=== PATIENT | male | born 1965 | race Caucasian/White ===

== ENCOUNTER 2017-11-04 10:17 | Inpatient (IN) | payer BC, SELFPAY ==
[2017-11-04] VITALS (17 sets, daily range): BP systolic 149–194; BP diastolic 100–137; PULSE 75–101; RESP 16–18; TEMP 36.3–36.8; O2SAT 89–98
--- NOTE | 2017-11-04 11:10 | DI.CT_ITS ---
SYMPTOMS/DIAGNOSIS: UPPER ABDOMINAL PAIN, H/O PANCREATITIS, ? ACUTE PROCESS CT SCAN OF THE ABDOMEN AND PELVIS: CT scan of the abdomen and pelvis was performed following the uneventful administration of intravenous contrast material. There is soft tissue seen in the retroareolar region, suggesting gynecomastia. The lung bases are clear. There is diffuse attenuation of the liver consistent with hepatic steatosis. No discrete hepatic mass is seen. The gallbladder is negative by CT criteria. There is no biliary ductal dilatation. The pancreas is enlarged. There is extensive peripancreatic infiltration noted. The findings are suggestive of acute pancreatitis. There is a 3.6 x 2.3 cm fluid collection adjacent to the tail of the pancreas, suggesting a pseudocyst. The portal, superior mesenteric and splenic veins are patent, as are the branches of the celiac axis. Mild wall thickening is seen in the adjacent stomach and duodenum, likely reflecting a secondary gastritis and duodenitis. The spleen is normal in size. Note is made of an accessory spleen. The adrenal glands are unremarkable. The kidneys show normal and symmetric enhancement. No evidence of a solid renal mass or obstruction. The urinary bladder is intact. The reproductive organs are unremarkable. Apart from the findings mentioned above, the bowel is unremarkable. The abdominal aorta is of normal caliber with mild atherosclerosis. No significant abdominal or pelvic adenopathy or pneumoperitoneum is seen. There is a trace amount of free fluid in the pelvis. Degenerative changes are seen in the spine. IMPRESSION: 1. Findings consistent with acute pancreatitis. A 3.6 cm fluid collection adjacent to the tail of the pancreas suggesting a pseudocyst. 2. Hepatic steatosis. 3. Concentric thickening of the wall of the distal esophagus. This may represent an inflammatory infectious esophagitis. Esophageal injury cannot be excluded. Followup as clinically appropriate. Barium swallow or EGD may be considered. 4. Bowel wall thickening seen in the stomach and duodenum adjacent to the acute findings of the pancreas. These likely reflect secondary gastritis and duodenitis. 5. Trace amount of free fluid in the pelvis. The findings were discussed with Dr. Rubio of the Emergency Department on the date of the examination.
--- NOTE | 2017-11-04 11:33 | W.ED.GENAD ---
Discharge Plan Discharge Details Chief Complaint: Abd Prob Clinical Impression: Acute pancreatitis Reason For Visit: ACUTE PANCREATITIS Admit Date/Time: 11/04/17 14:52 Admit Provider: Adia Rubio Attending Provider: Lewis Jean-Baptiste Primary Care Provider: Stephanie Romero ED Provider: Adia Rubio Disposition Patient Disposition: [facility] INPATIENT Condition: Stable Discharge Data Discharge Date/Time-TO BE ENTERED AT DEPARTURE: 11/04/17 16:50 Medical Decision Making MDM Narrative Medical decision making narrative: 51-year-old male with a history of pancreatitis, diabetes, hypertension, hyperlipidemia and alcohol use who presents for crampy upper abdominal pain and vomiting since 230 this morning. States feels consistent with his previous episodes of pancreatitis. Admits to heavy alcohol use 3 days. Patient appears uncomfortable and diaphoretic. Heart rate 75. BP 149/103. Temperature 98.1. Oxygen saturation 98% on room air. Prior to my evaluation, labs, IV, CT abdomen ordered to expedite process. After my evaluation, will add a dose of morphine, Zofran, and IV fluids. We will also add troponin and EKG. 1310 --long delay in lab results due to lipemic blood. Lipase 9266. Creatinine and GFR within normal limits. Will give another bolus IV fluids and sent to CT. troponin negative and no acute findings on EKG. EKG rate 75, sinus, no acute ST elevation or depression. 1345 --discussed with radiology - CT resulted and notes acute pancreatitis as well as a 3.6 cm pseudocyst at tail of pancreas. Also noted fatty liver and thickening distal wall of esophagus. No stones and normal biliary duct. Patient admits to pain relief after second dose of morphine but pain is returning. Pt appears nontoxic and more comfortable. Dose of Dilaudid and Reglan ordered. Will call hospitalist for admission. 1440 -- D/w hospitalist - accepts pt for admission. HPI - General Adult General Date/Time Provider Initiated Documentation: 11/04/17 11:05. Limitations to Documentation: no limitations. Information obtained by: patient. HPI Narrative: Patient is a 51-year-old male with a history of pancreatitis, diabetes, hypertension, hyperlipidemia and alcohol use who presents for crampy upper abdominal pain since 230 this morning. States he has vomited multiple times which have mainly been bile. Patient states pain is 10/10 but denies any radiation. States his symptoms appear consistent with previous episodes of pancreatitis. Patient states he last drank alcohol 3 days ago and states I had more than I should have . States he had 3-4 alcoholic drinks. He denies any tobacco or drug use. Denies known fever but has felt cold and clammy. Last bowel movement was watery and brown this morning but denies any bleeding. He has not taken any medication for pain. Related Data Home Medications Medication Instructions Recorded Confirmed albuterol sulfate [Ventolin HFA] 2 puff INHALATION QID PRN #3 puff 07/01/12 11/04/17 multivitamin [Multi-Vitamin Daily] 1 ea PO 10/29/16 Allergies Allergy/AdvReac Type Severity Reaction Status Date / Time morphine AdvReac Intermediate Narcotic Unverified 07/02/17 08:53 induced constipation General Stated Complaint: Abd Prob DELMY: 3 Review of Systems Constitutional Reports chills, Denies fever(s) and Reports poor appetite Eyes Patient Denies diplopia and Denies loss of vision ENT Denies sore throat and Denies throat swelling Cardiovascular Denies chest pain and Denies dyspnea Respiratory Denies dyspnea Gastrointestinal Reports abdominal pain, Reports diarrhea and Reports vomiting Genitourinary Denies hematuria, Denies difficulty urinating and Denies dysuria Musculoskeletal Denies back pain Neurologic Denies loss of vision Allergic/Immunologic Denies throat swelling PFSH Family History Grandfather Myocardial infarction Mother No problems noted. Father No problems noted. Grandfather Personal history of malignant neoplasm Grandmother No problems noted. Grandmother No problems noted. 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 [employer] Smoking/Tobacco Use Status: Never alcohol intake: current alcohol intake frequency: a few times a week Surgical History Arthroplasty of knee (~05/2004) Exam Const General: cooperative and in distress moderate Nutritional Appearance: obese Orientation: alert and awake [facility] Head: normal to inspection Ears: hearing grossly normal bilaterally General nose exam: external nose normal Mouth: moist mucous membranes Eyes General: appearance normal, both eyes and all related structures Pupils: PERRL EOM: EOM intact bilaterally Neck Neck: normal visual inspection Chest Chest: normal inspection of the chest Resp Effort & Inspection: normal respiratory effort, no respiratory distress and no use of accessory muscles Auscultation: clear to auscultation bilaterally Cardio Rate: regular rate Rhythm: regular rhythm GI Inspection: normal to inspection Palpation: soft and tender in the epigastrum, in the LLQ and in the RLQ Male General Exam: Yes normal external exam Skin General skin exam: no rashes or lesions noted Neuro General: alert and awake Cognition: normal cognition Speech: speech normal Motor: muscle tone normal throughout Sensory Exam: no sensory deficits noted Extrem General: normal to inspection, full ROM and no edema Psych Appearance: grossly normal Mental Status: mental status grossly normal Speech and Movement: speech and movement normal Affect: normal affect Course Vital Signs Temperature 98.1 F 11/04/17 10:23 Pulse 75 11/04/17 10:23 Respiratory Rate 16 11/04/17 10:23 Blood Pressure 149/103 H 11/04/17 10:23 Pulse Oximetry 98 11/04/17 10:23 Temperature 98.1 F 11/04/17 10:23 Pulse 75 11/04/17 10:23 Respiratory Rate 16 11/04/17 10:23 Blood Pressure 149/103 H 11/04/17 10:23 Pulse Oximetry 98 11/04/17 10:23
[2017-11-04] MEDS: MORPHine 10 MG/ML VIAL 4 MG IVP ×2 (11:39→12:06)
[2017-11-04] MEDS: Normal Saline 1,000 ML 1000 ML IV ×2 (11:39→13:51)
[2017-11-04 11:40] LABS: Abs Immature Grans 0.02 k/cumm (0.0-0.09); Absolute Basophil Count 0.01 k/cumm (0.0-0.2); Absolute Eosinophil Count 0.01 k/cumm (0.0-0.7); Absolute Lymphocyte Count 1.33 k/cumm (1.2-3.4); Absolute Monocyte Count 0.56 k/cumm (0.11-0.7); Absolute Neutrophil Count 7.47 k/cumm (1.2-6.7); Basophils % 0.1; Eosinophils % 0.1; HCT 47.8 % (40.0-50.0); HGB 16.3 g/dL (13.5-17.5); Immature Grans % 0.2; Lymphocytes % 14.1; Mean Corp. HGB Concentration 34.1 g/dL (32.0-36.0); Mean Corpuscular Hemoglobin 33.3 pg (27.0-33.0); Mean Corpuscular Volume 97.8 fL (80-95); Neutrophils % 79.5; Platelet Count 184 x1000/uL (130-400); RBC 4.89 m/cumm (4.50-6.00); RBC Distribution Width 13.2 % (11.8-14.1)
--- NOTE | 2017-11-04 11:41 | ED.GENADUL_ITS ---
Discharge Plan Discharge Details Chief Complaint: Abd Prob Clinical Impression: Acute pancreatitis Reason For Visit: ACUTE PANCREATITIS Admit Date/Time: 11/04/17 14:52 Admit Provider: Adia Rubio Attending Provider: Lewis Jean-Baptiste Primary Care Provider: Stephanie Romero ED Provider: Adia Rubio Disposition Patient Disposition: [facility] INPATIENT Condition: Stable Discharge Data Discharge Date/Time-TO BE ENTERED AT DEPARTURE: 11/04/17 16:50 Medical Decision Making MDM Narrative Medical decision making narrative: 51-year-old male with a history of pancreatitis, diabetes, hypertension, hyperlipidemia and alcohol use who presents for crampy upper abdominal pain and vomiting since 230 this morning. States feels consistent with his previous episodes of pancreatitis. Admits to heavy alcohol use 3 days. Patient appears uncomfortable and diaphoretic. Heart rate 75. BP 149/103. Temperature 98.1. Oxygen saturation 98% on room air. Prior to my evaluation, labs, IV, CT abdomen ordered to expedite process. After my evaluation, will add a dose of morphine, Zofran, and IV fluids. We will also add troponin and EKG. 1310 --long delay in lab results due to lipemic blood. Lipase 9266. Creatinine and GFR within normal limits. Will give another bolus IV fluids and sent to CT. troponin negative and no acute findings on EKG. EKG rate 75, sinus, no acute ST elevation or depression. 1345 --discussed with radiology - CT resulted and notes acute pancreatitis as well as a 3.6 cm pseudocyst at tail of pancreas. Also noted fatty liver and thickening distal wall of esophagus. No stones and normal biliary duct. Patient admits to pain relief after second dose of morphine but pain is returning. Pt appears nontoxic and more comfortable. Dose of Dilaudid and Reglan ordered. Will call hospitalist for admission. 1440 -- D/w hospitalist - accepts pt for admission. HPI - General Adult General Date/Time Provider Initiated Documentation: 11/04/17 11:05 . Limitations to Documentation: no limitations . Information obtained by: patient . HPI Narrative: Patient is a 51-year-old male with a history of pancreatitis, diabetes, hypertension, hyperlipidemia and alcohol use who presents for crampy upper abdominal pain since 230 this morning. States he has vomited multiple times which have mainly been bile. Patient states pain is 10/10 but denies any radiation. States his symptoms appear consistent with previous episodes of pancreatitis. Patient states he last drank alcohol 3 days ago and states I had more than I should have . States he had 3-4 alcoholic drinks. He denies any tobacco or drug use. Denies known fever but has felt cold and clammy. Last bowel movement was watery and brown this morning but denies any bleeding. He has not taken any medication for pain. Related Data Home Medications Medication Instructions Recorded Confirmed albuterol sulfate [Ventolin HFA] 2 puff INHALATION QID PRN #3 puff 07/01/1207/17 multivitamin [Multi-Vitamin Daily] 1 ea PO 10/29/16 Allergies Allergy/AdvReac Type Severity Reaction Status Date / Time morphine AdvReac Intermediate Narcotic Unverified 07/02/17 08:53 induced constipation General Stated Complaint: Abd Prob DELMY: 3 Review of Systems Constitutional Reports chills, Denies fever(s) and Reports poor appetite Eyes Patient Denies diplopia and Denies loss of vision ENT Denies sore throat and Denies throat swelling Cardiovascular Denies chest pain and Denies dyspnea Respiratory Denies dyspnea Gastrointestinal Reports abdominal pain, Reports diarrhea and Reports vomiting Genitourinary Denies hematuria, Denies difficulty urinating and Denies dysuria Musculoskeletal Denies back pain Neurologic Denies loss of vision Allergic/Immunologic Denies throat swelling PFSH Family History Grandfather Myocardial infarction Mother No problems noted. Father No problems noted. Grandfather Personal history of malignant neoplasm Grandmother No problems noted. Grandmother No problems noted. 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 Use Status: Never alcohol intake: current alcohol intake frequency: a few times a week Surgical History Arthroplasty of knee (~05/2004) Exam Const General: cooperative and in distress moderate Nutritional Appearance: obese Orientation: alert and awake [facility] Head: normal to inspection Ears: hearing grossly normal bilaterally General nose exam: external nose normal Mouth: moist mucous membranes Eyes General: appearance normal, both eyes and all related structures Pupils: PERRL EOM: EOM intact bilaterally Neck Neck: normal visual inspection Chest Chest: normal inspection of the chest Resp Effort & Inspection: normal respiratory effort, no respiratory distress and no use of accessory muscles Auscultation: clear to auscultation bilaterally Cardio Rate: regular rate Rhythm: regular rhythm GI Inspection: normal to inspection Palpation: soft and tender in the epigastrum, in the LLQ and in the RLQ Male General Exam: Yes normal external exam Skin General skin exam: no rashes or lesions noted Neuro General: alert and awake Cognition: normal cognition Speech: speech normal Motor: muscle tone normal throughout Sensory Exam: no sensory deficits noted Extrem General: normal to inspection, full ROM and no edema Psych Appearance: grossly normal Mental Status: mental status grossly normal Speech and Movement: speech and movement normal Affect: normal affect Course Vital Signs Temperature 98.1 F 11/04/17 10:23 Pulse 75 11/04/17 10:23 Respiratory Rate 16 11/04/17 10:23 Blood Pressure 149/103 H 11/04/17 10:23 Pulse Oximetry 98 11/04/17 10:23 Temperature 98.1 F 11/04/17 10:23 Pulse 75 11/04/17 10:23 Respiratory Rate 16 11/04/17 10:23 Blood Pressure 149/103 H 11/04/17 10:23 Pulse Oximetry 98 11/04/17 10:23
[2017-11-04] MEDS: Ondansetron 4 MG/2 ML VIAL IVP ×3 (11:42→20:35)
[2017-11-04 11:59] LABS: ALT 59 U/L (12-78); AST 61 U/L (15-37); Albumin 3.7 g/dL (3.4-5.0); Alkaline Phosphatase 65 U/L (46-116); Anion Gap 9.3 mmol/L (3-11); BUN 11 mg/dL (7-18); Bilirubin, Total 1.1 mg/dL (0.2-1.0); CO2 25.7 mmol/L (21.0-32.0); CREATININE 0.98 mg/dL (0.70-1.30); Calcium 9.7 mg/dL (8.5-10.1); Chloride 95 mmol/L (98-107); Glucose 240 mg/dL (70-100); Potassium 3.7 mmol/L (3.5-5.1); Sodium 130 mmol/L (136-145); Total Protein 7.6 g/dL (6.4-8.2)
[2017-11-04 12:22] LABS: Magnesium 1.1 mg/dL (1.8-2.4)
[2017-11-04 12:28] LABS: Troponin I < 0.02 ng/mL (0.00-0.06)
[2017-11-04 12:59] LABS: Lipase 9266 U/L (73-393)
[2017-11-04 13:11] LABS: Bilirubin Small (Negative); Blood Negative (Negative); Clarity Clear; Glucose 500 mg/dL (Negative); Ketones 80 mg/dL (Negative); Leukocyte Esterase Negative (Negative); Nitrite Negative (Negative); Specific Gravity >= 1.030 (1.005-1.025); Urobilinogen 0.2 EU/dL (Up TO 0.2); pH 5.5 (5-8)
[2017-11-04 13:24] LABS: Epithelial Cells Few HPF (Negative); Other Cells Negative (Negative); RBC Negative (0-2); WBC Negative HPF (0-5)
[2017-11-04 13:25] LABS: Bacteria Few HPF (Negative); C & S Indicated? No; Casts Negative LPF (Negative); Crystals Negative HPF (Negative); Mucus Heavy (Negative)
[2017-11-04] MEDS: HYDROmorphone 2 MG/ML VIAL 1 MG IVP ×4 (13:49→22:28)
[2017-11-04] MEDS: Metoclopramide 10 MG/2 ML VIAL IVP (13:50)
[2017-11-04] MEDS: Omnipaque 350 MG/ML 100 ML BTL IJ (14:23)
[2017-11-04] MEDS: FAMOTIDINE 20 MG/50 ML BAG 100 MG IVPB (16:46)
--- NOTE | 2017-11-04 17:34 | HPE_ITS ---
Date of service: 11/04/17 Time of Service: 17:33 Assessment and Plan (1) Acute pancreatitis: Current visit: Yes Status: Acute Lipase elevated at [address] findings suggestive of pancreatitis. Plan to give IV fluid hydration, maintain NPO status, analgesics and antiemetics. Repeat Lipase in the morning. Lipid panel in the am. (2) Diabetes mellitus: Current visit: Yes Status: Chronic Hold metformin while inpatient. Monitor fingersticks q6h while NPO, provide sliding scale coverage q6h. (3) Alcohol intake above recommended sensible limits: Current visit: No Status: Chronic Reportedly decreased alcohol intake significantly. Plan to monitor for signs of withdrawal on the CIWA protocol. Encourage abstinence from alcohol. (4) History of tobacco use: Current visit: Yes Status: Chronic He uses chewing tobacco. He declines a nicotine patch at this time. Provide nicotine replacement as needed. (5) Hypertension: Current visit: No Status: Chronic Blood pressure elevated in the setting of pain. Maintain pain control and continue to monitor blood pressures. History of Present Illness Chief Complaint: abdominal pain Narrative: Mr. Guillermo is a 51 year old male with a history of alcohol abuse and pancreatitis as well as diabetes, hypertension and hyperlipidemia. He reports having increased stress in his life recently. He drank alcohol 3 days ago, probably more than I should have. He has been trying to cut back on his alcohol intake. He began feeling fatigued and ill yesterday. He has been unable to tolerate PO intake, he has not had anything to eat or drink since yesterday morning. He began experiencing severe diffuse abdominal pain early this morning. He became nauseated and presented to the ED. Work up in the ED included labs which revealed an elevated lipase of 9266. He was also noted to have mild hyponatremia with a sodium of 130, his magnesium was low at 1.1, he had no leukocytosis. He had an abdominal CT which revealed Findings consistent with acute pancreatitis. A 3.6 cm fluid collection adjacent to the tail of the pancreas suggesting a pseudocyst, Hepatic steatosis , concentric thickening of the wall of the distal esophagus, bowel wall thickening seen in the stomach and duodenum adjacent to the acute findings of the pancreas, trace amount of free fluid in the pelvis. He is admitted to the Med/Surg floor for further evaluation and treatment for acute pancreatits. PAST MEDICAL HISTORY: Pancreatitis, last hosptialized here in 2016. Gout Anxiety DM HTN Hyperlipidemia PAST SURGICAL HISTORY: Knee replacement Review of Systems Constitutional Reports chills, Reports excessive sweating, Reports fatigue and Denies fever(s) Cardiovascular Denies chest pain, Reports diaphoresis, Denies edema, Denies palpitations and Denies dyspnea Respiratory Denies cough, Denies dyspnea and Denies wheezing Gastrointestinal Reports abdominal pain (diffuse), Reports bloating, Reports cramping and Reports nausea (poor appetite) Genitourinary Denies dysuria Endocrine Reports excessive sweating, Reports fatigue and Denies palpitations Allergic/Immunologic Denies wheezing PFSH Family History Grandfather Myocardial infarction Mother No problems noted. Father No problems noted. Grandfather Personal history of malignant neoplasm Grandmother No problems noted. Grandmother No problems noted. Medical History Pancreatic pseudocyst (Acute) Acute pancreatitis (Acute 12/19/13) Diabetes mellitus (Chronic) History of tobacco use (Chronic) Social History lives independently: Yes current occupational status: employed current occupation: [employer] for [employer] Smoking/Tobacco Use Status: Never alcohol intake: current alcohol intake frequency: a few times a week Surgical History Arthroplasty of knee (~05/2004) Meds Home Medications Medication Instructions Recorded Confirmed Type albuterol sulfate [Ventolin HFA] 2 puff INHALATION QID PRN #3 puff 07/01/1207/17 History multivitamin [Multi-Vitamin Daily] 1 ea PO 10/29/16 History allopurinol 300 mg tablet 300 mg PO DAILY 11/06/17 11/06/17 History buspirone 15 mg tablet 15 mg PO TID PRN 11/06/17 11/06/17 History clonidine HCl 0.2 mg tablet 0.2 mg PO BID 11/06/17 11/06/17 History glipizide ER 10 mg tablet, 10 mg PO DAILY 11/06/17 11/06/17 History extended release 24 hr metformin 1,000 mg tablet 1,000 mg PO BID 11/06/17 11/06/17 History tadalafil 5 mg tablet 5 mg PO ONCE PRN 11/06/17 11/06/17 History Allergies Allergy/AdvReac Type Severity Reaction Status Date / Time morphine AdvReac Intermediate Narcotic Unverified 07/02/17 08:53 induced constipation Exam Const General: cooperative, in distress (Flushed, appears uncomfortable.) and diaphoretic HENMT Head: normocephalic and atraumatic Neck Neck: supple Resp Effort & Inspection: normal respiratory effort (Respirations even and unlabored. ) Auscultation: clear to auscultation bilaterally Cardio Rate: regular rate Heart Sounds: S1 normal, S2 normal and no murmurs GI Inspection: distended (large round abdomen.) Palpation: tender (significant tenderness on very light palpation diffusely across abdomen.) Auscultation: hypoactive bowel sounds Results Labs : 11/06/17 06:10 11/06/17 06:10 Abnormal lab results 11/04/17 11/04/17 11/04/17 Range/Units 10:40 10:40 10:40 MCV 97.8 H (80-95) fL MCH 33.3 H (27.0-33.0) pg Absolute Neutrophils 7.47 H (1.2-6.7) k/cumm Sodium 130 L (136-145) mmol/L Chloride 95 L (98-107) mmol/L Glucose 240 H (70-100) mg/dL Magnesium 1.1 L (1.8-2.4) mg/dL Total Bilirubin 1.1 H (0.2-1.0) mg/dL AST 61 H (15-37) U/L Lipase 9266 H (73-393) U/L Ur Specific [place] (1.005-1.025) Urine Protein (Negative) mg/dL Urine Bilirubin (Negative) Urine Glucose (Negative) mg/dL 11/04/17 Range/Units 13:01 MCV (80-95) fL MCH (27.0-33.0) pg Absolute Neutrophils (1.2-6.7) k/cumm Sodium (136-145) mmol/L Chloride (98-107) mmol/L Glucose (70-100) mg/dL Magnesium (1.8-2.4) mg/dL Total Bilirubin (0.2-1.0) mg/dL AST (15-37) U/L Lipase (73-393) U/L Ur Specific [place] >= 1.030 H (1.005-1.025) Urine Protein 100 H (Negative) mg/dL Urine Bilirubin Small H (Negative) Urine Glucose 500 H (Negative) mg/dL Diabetes panel 11/04/17 Range/Units 10:40 Sodium 130 L (136-145) mmol/L Potassium 3.7 (3.5-5.1) mmol/L Chloride 95 L (98-107) mmol/L Carbon Dioxide 25.7 (21.0-32.0) mmol/L BUN 11 (7-18) mg/dL Creatinine 0.98 (0.70-1.30) mg/dL Glucose 240 H (70-100) mg/dL Calcium 9.7 (8.5-10.1) mg/dL AST 61 H (15-37) U/L ALT 59 (12-78) U/L Alkaline Phosphatase 65 (46-116) U/L Total Protein 7.6 (6.4-8.2) g/dL Albumin 3.7 (3.4-5.0) g/dL Calcium panel 11/04/17 Range/Units 10:40 Calcium 9.7 (8.5-10.1) mg/dL Albumin 3.7 (3.4-5.0) g/dL Pituitary panel 11/04/17 Range/Units 10:40 Sodium 130 L (136-145) mmol/L Potassium 3.7 (3.5-5.1) mmol/L Chloride 95 L (98-107) mmol/L Carbon Dioxide 25.7 (21.0-32.0) mmol/L BUN 11 (7-18) mg/dL Creatinine 0.98 (0.70-1.30) mg/dL Glucose 240 H (70-100) mg/dL Calcium 9.7 (8.5-10.1) mg/dL Adrenal panel 11/04/17 Range/Units 10:40 Sodium 130 L (136-145) mmol/L Potassium 3.7 (3.5-5.1) mmol/L Chloride 95 L (98-107) mmol/L Carbon Dioxide 25.7 (21.0-32.0) mmol/L BUN 11 (7-18) mg/dL Creatinine 0.98 (0.70-1.30) mg/dL Glucose 240 H (70-100) mg/dL Calcium 9.7 (8.5-10.1) mg/dL Total Bilirubin 1.1 H (0.2-1.0) mg/dL AST 61 H (15-37) U/L ALT 59 (12-78) U/L Alkaline Phosphatase 65 (46-116) U/L Total Protein 7.6 (6.4-8.2) g/dL Albumin 3.7 (3.4-5.0) g/dL Laboratory Tests 11/04/17 11/04/17 11/04/17 10:40 10:40 10:40 WBC 9.40 RBC 4.89 Hgb 16.3 Hct 47.8 MCV 97.8 H MCH 33.3 H MCHC 34.1 RDW 13.2 Plt Count 184 MPV 10.0 Immature Gran % 0.2 Neutrophils % 79.5 Lymphocytes % 14.1 Monocytes % 6.0 Eosinophils % 0.1 Basophils % 0.1 Absolute Neutrophils 7.47 H Absolute Lymphocytes 1.33 Absolute Monocytes 0.56 Absolute Eosinophils 0.01 Absolute Basophils 0.01 Sodium 130 L Potassium 3.7 Chloride 95 L Carbon Dioxide 25.7 Anion Gap 9.3 BUN 11 Creatinine 0.98 Estimated GFR/1.73 m2 >= 60.00 Glucose 240 H Calcium 9.7 Magnesium 1.1 L Total Bilirubin 1.1 H AST 61 H ALT 59 Alkaline Phosphatase 65 Troponin I < 0.02 Total Protein 7.6 Albumin 3.7 Lipase 9266 H Urine Color Urine Clarity Urine pH Ur Specific [place] Urine Protein Urine Ketones Urine Blood Urine Nitrite Urine Bilirubin Urine Urobilinogen Ur Leukocyte Esterase Urine RBC Urine WBC Ur Epithelial Cells Urine Crystals Urine Bacteria Urine Casts Urine Mucus Urine Other Ur Culture Indicated? Urine Glucose 11/04/17 13:01 WBC RBC Hgb Hct MCV MCH MCHC RDW Plt Count MPV Immature Gran % Neutrophils % Lymphocytes % Monocytes % Eosinophils % Basophils % Absolute Neutrophils Absolute Lymphocytes Absolute Monocytes Absolute Eosinophils Absolute Basophils Sodium Potassium Chloride Carbon Dioxide Anion Gap BUN Creatinine Estimated GFR/1.73 m2 Glucose Calcium Magnesium Total Bilirubin AST ALT Alkaline Phosphatase Troponin I Total Protein Albumin Lipase Urine Color Dania Urine Clarity Clear Urine pH 5.5 Ur Specific [place] >= 1.030 H Urine Protein 100 H Urine Ketones 80 Urine Blood Negative Urine Nitrite Negative Urine Bilirubin Small H Urine Urobilinogen 0.2 Ur Leukocyte Esterase Negative Urine RBC Negative Urine WBC Negative Ur Epithelial Cells Few Urine Crystals Negative Urine Bacteria Few Urine Casts Negative Urine Mucus Heavy Urine Other Negative Ur Culture Indicated? No Urine Glucose 500 H
--- NOTE | 2017-11-04 17:38 | NUR.NOTE ---
Nursing Note:Pt arrived to rm [id number] via stretcher from ER with RN Vidal. BP high and battery charger conveyor line notified. Patient made comfortable in the bed.
[2017-11-04] MEDS: Enoxaparin 40 MG/0.4 ML SYR SC (18:41)
[2017-11-04] MEDS: Normal Saline Flush 10 ML SYR IVP ×3 (18:42→23:05)
[2017-11-04] MEDS: Normal Saline 1,000 ML 150 ML IV (18:42)
[2017-11-04] MEDS: MAGNESIUM SULFATE 4 GM/100 ML BAG IVPB (18:43)
[2017-11-04] MEDS: Insulin Aspart 300 UNITS/3 ML PEN SC (18:56)
[2017-11-04] MEDS: Metoprolol 5 MG/5 ML VIAL IVP ×2 (19:38→23:01)
[2017-11-04] MEDS: LORazepam 1 MG TAB PO/SL (20:33)
[2017-11-04] MEDS: Mylanta Suspension 30 ML CUP PO (20:44)
[2017-11-04] MEDS: Milk of Magnesia 30 ML CUP PO (20:44)
[2017-11-05] VITALS (19 sets, daily range): BP systolic 137–197; BP diastolic 91–136; PULSE 90–128; RESP 16–20; TEMP 36.6–37.7; O2SAT 93–95
[2017-11-05] MEDS: HYDROmorphone 2 MG/ML VIAL 1 MG IVP ×9 (01:10→23:52)
[2017-11-05] MEDS: Normal Saline Flush 10 ML SYR IVP ×11 (01:11→16:36)
[2017-11-05] MEDS: Ondansetron 4 MG/2 ML VIAL IVP ×3 (01:44→20:16)
[2017-11-05] MEDS: Normal Saline 1,000 ML 150 ML IV ×4 (01:45→22:59)
[2017-11-05] MEDS: Metoprolol 5 MG/5 ML VIAL IVP ×2 (03:56→08:11)
--- NOTE | 2017-11-05 05:42 | INITIAL_ITS ---
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 Dino states that he has family and friends locally whom are supportive. He is independent at baseline, drives, and manages [employer]. CURRENT FUNCTIONAL STATUS:: Currently Dino is lying in bed when this advertising copywriter visits. He is receptive to discussion. During visit Dino became nauseous and LAUREN Zhao, was notified. ADVANCE DIRECTIVES:: None on file Has patient been provided with information about the portal?: Yes Did the patient sign up for the portal?: No CODE STATUS:: Full Code INSURANCE COVERAGE / FINANCIAL ISSUES:: BCBS CURRENT HOME/COMMUNITY SERVICES/EQUIPMENT:: Currently Dino has no services or medical equipment in the community. PRIMARY CARE PHYSICIAN:: Dr. Romero POTENTIAL DISCHARGE NEEDS:: F/U appointment with PCP PATIENT/FAMILY EDUCATION NEEDS:: Review DC instructions, any limitations, and ongoing DC planning discussion. ANTICIPATED BARRIERS TO DISCHARGE:: None identified at this time. TRANSPORTATION:: Via private vehicle PLAN:: Dino will return home with no anticipated services. He will F/U with PCP and plan of care as prescribed. Dino will transport home via private vehicle. Readmission - Within the Past 30 Days Yes or No: N
[2017-11-05] MEDS: Insulin Aspart 300 UNITS/3 ML PEN SC ×4 (06:40→23:53)
[2017-11-05] MEDS: Mylanta Suspension 30 ML CUP PO (07:15)
[2017-11-05 07:16] LABS: HGB 16.9 g/dL (13.5-17.5); Mean Corp. HGB Concentration 33.1 g/dL (32.0-36.0); Mean Corpuscular Hemoglobin 33.3 pg (27.0-33.0); Mean Corpuscular Volume 100.6 fL (80-95); Mean Platelet Volume 10.1 fL (8.0-11.0); Platelet Count 131 x1000/uL (130-400); RBC 5.07 m/cumm (4.50-6.00); RBC Distribution Width 13.6 % (11.8-14.1); White Blood Cell Count 14.07 k/cumm (4.4-10.8)
[2017-11-05 07:38] LABS: BUN 11 mg/dL (7-18); CREATININE 1.21 mg/dL (0.70-1.30); Calcium 7.9 mg/dL (8.5-10.1); Chloride 100 mmol/L (98-107); Cholesterol 180 mg/dL (50-200); Glucose 263 mg/dL (70-100); HDL Cholesterol 58 mg/dL (40-60); LDL CHOLESTEROL 88 mg/dL (<100); Magnesium 1.7 mg/dL (1.8-2.4); Potassium 4.5 mmol/L (3.5-5.1); Sodium 133 mmol/L (136-145); Triglyceride 284 mg/dL (30-150)
[2017-11-05 08:03] LABS: Lipase 8590 U/L (73-393)
--- NOTE | 2017-11-05 09:14 | DI.US_ITS ---
SYMPTOM/DIAGNOSIS: PANCREATITIS, ? GALLSTONES ABDOMEN ULTRASOUND: Comparison is made with CT of the abdomen and pelvis dated 11/04/17. The exam is limited by the patient's body habitus and a large amount of bowel gas. The liver shows fatty infiltration. Posterior portions of the liver were not seen. The gallbladder has a normal appearance. No stones or wall thickening is identified. A small amount of fluid is seen near the gallbladder, likely secondary to the pancreatitis. No biliary dilatation is seen. Pancreas is well seen. Kidneys and spleen appear normal. The aorta and IVC were obscured by bowel gas. IMPRESSION: Limited exam due to patient body habitus. No evidence of gallstones, gallbladder wall thickening or gallbladder distension. Severe fatty infiltration of the liver.
--- NOTE | 2017-11-05 10:00 | PDOC.CMIN ---
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 Dino states that he has family and friends locally whom are supportive. He is independent at baseline, drives, and manages [employer]AD[employer]'s. CURRENT FUNCTIONAL STATUS:: Currently Dino is lying in bed when this underwriter mortgage loan visits. He is receptive to discussion. During visit Dino became nauseous and LAUREN Zhao, was notified. ADVANCE DIRECTIVES:: None on file Has patient been provided with information about the portal?: Yes Did the patient sign up for the portal?: No CODE STATUS:: Full Code INSURANCE COVERAGE / FINANCIAL ISSUES:: BCBS CURRENT HOME/COMMUNITY SERVICES/EQUIPMENT:: Currently Dino has no services or medical equipment in the community. PRIMARY CARE PHYSICIAN:: Dr. Romero POTENTIAL DISCHARGE NEEDS:: F/U appointment with PCP PATIENT/FAMILY EDUCATION NEEDS:: Review DC instructions, any limitations, and ongoing DC planning discussion. ANTICIPATED BARRIERS TO DISCHARGE:: None identified at this time. TRANSPORTATION:: Via private vehicle PLAN:: Dino will return home with no anticipated services. He will F/U with PCP and plan of care as prescribed. Dino will transport home via private vehicle. Readmission - Within the Past 30 Days Yes or No: N
[2017-11-05] MEDS: cloNIDine 0.1 MG TAB 0.2 MG PO ×2 (10:41→20:16)
[2017-11-05] MEDS: MAGNESIUM SULFATE 2 GM/50 ML BAG IVPB (10:42)
--- NOTE | 2017-11-05 11:37 | PHARADMIT ---
Addendum entered by Michael Vaca III 11/07/17 12:36: Pharmacy Note Subjective Patients pancreatitis resolving. Issue now is possible ileus,abdomn distended, no flatus Reglan 10mg IV q6hrs started to increase gut motility. CIWA-zero Objective BP- 145/84 HR-93 pain:5/10 Lipase-1000 SCr-0.87 (better) WBC-15.29 Assessment BP is under control now with yesterdays changes Plan Awaiting ileus resolution Original Note: Addendum entered by Michael Vaca III 11/06/17 16:26: Pharmacy Note Subjective Pseudo-cyst around pancrease.Pain has improved,WBC is up, Feels bloated and belchy,no flatus no BM Objective BP-164/106 HR-102 Pain:5/10 Lipase-4080 Plts-112 Na-137 K+4.7 Mag-2.2 WBC-16.97 H&H-OK Assessment Norvasc added, clonidine re-ordered for BP. Plan Continues NPO for now. ,watch for repeat abdominal CT and x-ray results Original Note: Admission Pharmacy Clinical Review ACUTE PANCREATITIS Code Status Full Code Current Weight Wgt- 131.8 kg Renally Cleared and Narrow Therapeutic Index Meds CrCl~ 84 mL/min Meds-OK QTc Value / Action Taken Program NA BP Control, Fever BP- 184/135 Tmax- 37.1c Electrolytes reviewed Na- 133 K+4.5 Mag-1.7 DVT Prophylaxis Lovenox Opiate Usage / Scheduled Bowel Regimen Ordered Yes Yes Plt/SCr for Heparin / Enoxaparin Plts-131 SCr-1.21 INR for Warfarin NA H/H stable, WBC/Bands H&H- 16.9/51.0 WBC- 14.07 Antibiotic appropriateness none Cultures and Sensitivities none Surgical ABX d/c within 24 hr NA DM control / Insulin Dosing BG- 263 Glipizode,Aspart Heart Failure (Check EF%) (SHELDON's, B-Block, Diuretics) Catapres, Lopressor IV to PO Switch No Home Meds Reviewed Yes Home Meds Not Ordered Buspar, Cialis, Metformin, M-Vits Comments Lipase-8590
--- NOTE | 2017-11-05 12:40 | PGE_ITS ---
Date of service: 11/05/17 Time of Service: 12:29 Assessment and Plan (1) Acute pancreatitis: Current visit: Yes Status: Acute Lipase continues to be elevated at 8590, improved form [address] findings suggestive of pancreatitis. He had an abdominal CT which did not reveal gallstones. This acute pancreatitis is likely related to alcohol use. He is on the CIWA protocol, his most recent score was 2. Continue IV fluid hydration, maintain NPO status, analgesics and antiemetics. Repeat Lipase in the morning. White count elevated this morning, repeat white count in the morning. (2) Diabetes mellitus: Current visit: Yes Status: Chronic Hold metformin while inpatient. Continue to monitor fingersticks q6h while NPO, provide sliding scale coverage q6h. (3) Alcohol intake above recommended sensible limits: Current visit: No Status: Chronic Reportedly decreased alcohol intake significantly. His most recent CIWA score was 2. Continue to monitor for signs of withdrawal on the CIWA protocol. Encourage abstinence from alcohol. (4) History of tobacco use: Current visit: Yes Status: Chronic He uses chewing tobacco. He declines a nicotine patch at this time. Provide nicotine replacement as needed. (5) Hypertension: Current visit: No Status: Chronic Blood pressure elevated in the setting of pain. His clonidine has been ordered. He has PRN metoprolol ordered IV. Maintain pain control and continue to monitor blood pressures. (6) Pancreatic pseudocyst: Current visit: Yes Status: Acute Noted on abdominal CT. This will need to be followed as an outpatient. His PCP could consider referral to GI for further evaluation. Subjective Interval history since last seen: Mr. Guillermo is a 51 year old male with a history of alcohol abuse and pancreatitis as well as diabetes, hypertension and hyperlipidemia. Her is currently being treated for acute pancreatitis, which appears to be alcohol related. He had an abdominal ultrasound to further assess for gallstones which was a limited exam due to patient body habitus. There was no evidence of gallstones, gallbladder wall thickening or gallbladder distension , there was note made of severe fatty infiltration of the liver. He has been monitored on the CIWA protocol, he has not qualified for medication at this point on the scale. His triglicerides are elevated at 284, total cholesterol 180. His lipase is down to 8590 from 9266 on admission. He continues to have abdominal discomfort, however, he reports improvement from admission. His pain is now lower in his abdomen. He had some acid reflux last evening, he notes improvement this morning. He did not sleep well last night. He is experiencing some lower back discomfort as well. He has not moved his bowels. He is asking for PO fluids, however he understands that we need to hold off as he is still experiencing significant abdominal and back pain. His nausea is improving. He denies any chest pain/pressure, palpitations, edema, shortness of breath, cough , wheezing. He is uncomfortable in the bed, nursing is working on getting a recliner into his room. Exam Const General: cooperative and in distress (Flushed, appears uncomfortable, in mild distress.) Nutritional Appearance: obese Orientation: alert, awake and oriented x3 HENOK Head: normocephalic and atraumatic Mouth: moist mucous membranes Neck Neck: normal visual inspection and supple Resp Effort & Inspection: normal respiratory effort (Respirations even and unlabored. ) and no respiratory distress Auscultation: clear to auscultation bilaterally Cardio Rate: regular rate Heart Sounds: S1 normal, S2 normal and no murmurs GI Palpation: soft and tender (He continues to have tenderness on palpation, however there is noted improvement from yesterday.) Auscultation: hypoactive bowel sounds Skin General skin exam: no rashes or lesions noted Neuro General: alert, awake and oriented x3 Cognition: normal cognition Speech: speech normal Motor: muscle tone normal throughout and strength 5/5 throughout Sensory Exam: no sensory deficits noted Extrem General: full ROM and no edema Psych Affect: normal affect Objective Objective Clinical Data: Abnormal lab results 11/04/17 11/04/17 11/05/17 Range/Units 10:40 13:01 06:16 WBC (4.4-10.8) k/cumm Hct (40.0-50.0) % MCV (80-95) fL MCH (27.0-33.0) pg Sodium 130 L 133 L (136-145) mmol/L Chloride 95 L (98-107) mmol/L Glucose 240 H 263 H (70-100) mg/dL Calcium 7.9 L (8.5-10.1) mg/dL Magnesium 1.7 L (1.8-2.4) mg/dL Total Bilirubin 1.1 H (0.2-1.0) mg/dL AST 61 H (15-37) U/L Triglycerides 284 H (30-150) mg/dL Lipase 9266 H 8590 H (73-393) U/L Ur Specific [place] >= 1.030 H (1.005-1.025) Urine Protein 100 H (Negative) mg/dL Urine Bilirubin Small H (Negative) Urine Glucose 500 H (Negative) mg/dL 11/05/17 Range/Units 06:16 WBC 14.07 H D (4.4-10.8) k/cumm Hct 51.0 H (40.0-50.0) % MCV 100.6 H (80-95) fL MCH 33.3 H (27.0-33.0) pg Sodium (136-145) mmol/L Chloride (98-107) mmol/L Glucose (70-100) mg/dL Calcium (8.5-10.1) mg/dL Magnesium (1.8-2.4) mg/dL Total Bilirubin (0.2-1.0) mg/dL AST (15-37) U/L Triglycerides (30-150) mg/dL Lipase (73-393) U/L Ur Specific [place] (1.005-1.025) Urine Protein (Negative) mg/dL Urine Bilirubin (Negative) Urine Glucose (Negative) mg/dL Vital Signs Temp 36.6 C 11/05/17 11:13 Pulse 101 H 11/05/17 11:13 Resp 19 11/05/17 11:13 BP 166/116 H 11/05/17 11:13 Pulse Ox 95 11/05/17 11:13 Intake & Output 11/04/17 11/05/17 11/05/17 23:59 11:59 23:59 Intake Total 1099 Output Total 50 / 50 Balance 1050 / 1050 2104 Weight 120.202 kg 131.8 kg Intake: IV 1099 Output: Urine 50 / 50 Other: Urine Color Straw Urine Appearance Clear Comment voided in toilet unmeasured Urine not seen, voiding independently in bathroom Voiding Methods Toilet Toilet Laboratory Results WBC 14.07 k/cumm (4.4-10.8) H D 11/05/17 06:16 RBC 5.07 m/cumm (4.50-6.00) 11/05/17 06:16 Hgb 16.9 g/dL (13.5-17.5) 11/05/17 06:16 Hct 51.0 % (40.0-50.0) H 11/05/17 06:16 MCV 100.6 fL (80-95) H 11/05/17 06:16 MCH 33.3 pg (27.0-33.0) H 11/05/17 06:16 MCHC 33.1 g/dL (32.0-36.0) 11/05/17 06:16 RDW 13.6 % (11.8-14.1) 11/05/17 06:16 Plt Count 131 x1000/uL (130-400) 11/05/17 06:16 MPV 10.1 fL (8.0-11.0) 11/05/17 06:16 Immature Gran % 0.2 11/04/17 10:40 Neutrophils % 79.5 11/04/17 10:40 Lymphocytes % 14.1 11/04/17 10:40 Monocytes % 6.0 11/04/17 10:40 Eosinophils % 0.1 11/04/17 10:40 Basophils % 0.1 11/04/17 10:40 Absolute Neutrophils 7.47 k/cumm (1.2-6.7) H 11/04/17 10:40 Absolute Lymphocytes 1.33 k/cumm (1.2-3.4) 11/04/17 10:40 Absolute Monocytes 0.56 k/cumm (0.11-0.7) 11/04/17 10:40 Absolute Eosinophils 0.01 k/cumm (0.0-0.7) 11/04/17 10:40 Absolute Basophils 0.01 k/cumm (0.0-0.2) 11/04/17 10:40 Sodium 133 mmol/L (136-145) L 11/05/17 06:16 Potassium 4.5 mmol/L (3.5-5.1) D 11/05/17 06:16 Chloride 100 mmol/L (98-107) 11/05/17 06:16 Carbon Dioxide 23.0 mmol/L (21.0-32.0) 11/05/17 06:16 Anion Gap 10.0 mmol/L (3-11) 11/05/17 06:16 BUN 11 mg/dL (7-18) 11/05/17 06:16 Creatinine 1.21 mg/dL (0.70-1.30) 11/05/17 06:16 Estimated GFR/1.73 m2 >= 60.00 (mL/min/1.73m2) 11/05/17 06:16 Glucose 263 mg/dL (70-100) H 11/05/17 06:16 Calcium 7.9 mg/dL (8.5-10.1) L 11/05/17 06:16 Magnesium 1.7 mg/dL (1.8-2.4) L 11/05/17 06:16 Total Bilirubin 1.1 mg/dL (0.2-1.0) H 11/04/17 10:40 AST 61 U/L (15-37) H 11/04/17 10:40 ALT 59 U/L (12-78) 11/04/17 10:40 Alkaline Phosphatase 65 U/L (46-116) 11/04/17 10:40 Troponin I < 0.02 ng/mL (0.00-0.06) 11/04/17 10:40 Total Protein 7.6 g/dL (6.4-8.2) 11/04/17 10:40 Albumin 3.7 g/dL (3.4-5.0) 11/04/17 10:40 Triglycerides 284 mg/dL (30-150) H 11/05/17 06:16 Total Cholesterol 180 mg/dL (50-200) 11/05/17 06:16 LDL Cholesterol Direct 88 mg/dL (<100) 11/05/17 06:16 HDL Cholesterol 58 mg/dL (40-60) 11/05/17 06:16 Lipase 8590 U/L (73-393) H 11/05/17 06:16 Urine Color Dania (Yellow) 11/04/17 13:01 Urine Clarity Clear 11/04/17 13:01 Urine pH 5.5 (5-8) 11/04/17 13:01 Ur Specific [place] >= 1.030 (1.005-1.025) H 11/04/17 13:01 Urine Protein 100 mg/dL (Negative) H 11/04/17 13:01 Urine Ketones 80 mg/dL (Negative) 11/04/17 13:01 Urine Blood Negative (Negative) 11/04/17 13:01 Urine Nitrite Negative (Negative) 11/04/17 13:01 Urine Bilirubin Small (Negative) H 11/04/17 13:01 Urine Urobilinogen 0.2 EU/dL (Up TO 0.2) 11/04/17 13:01 Ur Leukocyte Esterase Negative (Negative) 11/04/17 13:01 Urine RBC Negative (0-2) 11/04/17 13:01 Urine WBC Negative HPF (0-5) 11/04/17 13:01 Ur Epithelial Cells Few HPF (Negative) 11/04/17 13:01 Urine Crystals Negative HPF (Negative) 11/04/17 13:01 Urine Bacteria Few HPF (Negative) 11/04/17 13:01 Urine Casts Negative LPF (Negative) 11/04/17 13:01 Urine Mucus Heavy (Negative) 11/04/17 13:01 Urine Other Negative (Negative) 11/04/17 13:01 Ur Culture Indicated? No 11/04/17 13:01 Urine Glucose 500 mg/dL (Negative) H 11/04/17 13:01
[2017-11-05] MEDS: Pantoprazole 40 MG VIAL IVP (13:51)
[2017-11-05] MEDS: Docusate Sodium 100 MG CAP PO (14:28)
[2017-11-05] MEDS: Enoxaparin 40 MG/0.4 ML SYR SC (18:37)
[2017-11-06] VITALS (15 sets, daily range): BP systolic 140–186; BP diastolic 85–113; PULSE 97–145; RESP 18–24; TEMP 36.1–37.8; O2SAT 94–96
[2017-11-06] MEDS: Mylanta Suspension 30 ML CUP PO
[2017-11-06] MEDS: HYDROmorphone 2 MG/ML VIAL 1 MG IVP ×5 (03:14→23:39)
[2017-11-06] MEDS: Normal Saline 1,000 ML 150 ML IV ×2 (04:05→19:11)
[2017-11-06] MEDS: Insulin Aspart 300 UNITS/3 ML PEN SC ×4 (05:56→23:40)
[2017-11-06 07:24] LABS: HCT 48.1 % (40.0-50.0); HGB 15.6 g/dL (13.5-17.5); Mean Corp. HGB Concentration 32.4 g/dL (32.0-36.0); Mean Corpuscular Hemoglobin 33.8 pg (27.0-33.0); Mean Corpuscular Volume 104.1 fL (80-95); Mean Platelet Volume 11.1 fL (8.0-11.0); Platelet Count 112 x1000/uL (130-400); RBC 4.62 m/cumm (4.50-6.00); RBC Distribution Width 13.9 % (11.8-14.1); White Blood Cell Count 16.97 k/cumm (4.4-10.8)
[2017-11-06 07:38] LABS: Anion Gap 8.2 mmol/L (3-11); BUN 13 mg/dL (7-18); CO2 23.8 mmol/L (21.0-32.0); CREATININE 1.24 mg/dL (0.70-1.30); Calcium 7.4 mg/dL (8.5-10.1); Chloride 102 mmol/L (98-107); Glucose 310 mg/dL (70-100); Magnesium 2.2 mg/dL (1.8-2.4); Potassium 4.7 mmol/L (3.5-5.1); Sodium 134 mmol/L (136-145)
[2017-11-06 07:53] LABS: Lipase 4080 U/L (73-393)
[2017-11-06] MEDS: cloNIDine 0.1 MG TAB 0.2 MG PO ×2 (07:59→19:43)
[2017-11-06] MEDS: glipiZIDE C.R. 5 MG TABCR 10 MG PO (07:59)
[2017-11-06] MEDS: Normal Saline Flush 10 ML SYR IVP ×4 (08:00→18:59)
[2017-11-06] MEDS: Allopurinol 300 MG TAB PO (08:00)
[2017-11-06] MEDS: Docusate Sodium 100 MG CAP PO (08:00)
[2017-11-06] MEDS: Normal Saline 1,000 ML 200 ML IV (10:30)
[2017-11-06] MEDS: Milk of Magnesia 30 ML CUP PO (10:31)
[2017-11-06] MEDS: amLODIPine 5 MG TAB PO (10:31)
--- NOTE | 2017-11-06 11:07 | PDOC.CMPRO ---
- If Service Date Differs Date of service: 11/06/17 Time of Service: 11:07 Care Management Progress Note S/O: Pt presented at interdisciplinary rounds. Oc is resting in his recliner when CM visits this morning. He is engaged in conversation, makes good eye contact and is talkative. Oc reports that he has throbbing 6/10 pain in his abdomen and back. Nurse Karley informed. He is belching, not passing flatus, and is thirsty but remains NPO at this time. He continues to receive IV fluids at this time. He is being monitored on telemetry and is being monitored for signs of withdrawal on the CIWA protocol. His most recent CIWA score was a one. A: 51 year old male admitted with acute pancreatitis. P: Oc will be discharged home when medically ready per MD. Anticipate pt will discharge with no services and follow up with PCP. Oc will transport via private vehicle with family/friend. CM will continue to offer support to patient and care team regarding discharge planning and disposition.
--- NOTE | 2017-11-06 13:19 | PGE_ITS ---
Date of service: 11/06/17 Time of Service: 13:00 Assessment and Plan (1) Acute pancreatitis: Current visit: Yes Status: Acute Lipase improved today, it is down to 4080 from 8590 yesterday and 9266 on admission. His white blood cell count has increased today. His pain has improved. His abdomen is now distended and he is not passing flatus. Abdominal x -ray has been ordered to assess for ileus. Discussed with Radiologist, Dr. Salcido , who notes that pseudocyst has not changed since last imaged in 2016. She did not see the utility of adding an MRCP at this point. She recommends repeat abdominal CT if indicated. If abdominal x-ray is unremarkable, plan to initiate bowel regimen and possibly allow limited sips of water and ice chips. (2) Diabetes mellitus: Current visit: Yes Status: Chronic Fingersticks elevated, aspart increased to moderate sliding scale. Hold metformin while inpatient. Monitor fingersticks q6h while NPO, provide sliding scale coverage q6h. (3) Alcohol intake above recommended sensible limits: Current visit: No Status: Chronic Reportedly decreased alcohol intake significantly. Most recent CIWA score was zero. Continue to monitor for signs of withdrawal on the CIWA protocol. Encourage abstinence from alcohol. (4) History of tobacco use: Current visit: Yes Status: Chronic He uses chewing tobacco. He declines a nicotine patch at this time. Provide nicotine replacement as needed. (5) Hypertension: Current visit: No Status: Chronic Blood pressure remains elevated. His home clonidine was reordered. Amlodipine added today. Maintain pain control and continue to monitor blood pressures. Subjective Interval history since last seen: Mr. Guillermo is a 51 year old male with a history of alcohol abuse and pancreatitis as well as diabetes, hypertension and hyperlipidemia. He is currently being treated for acute pancreatitis, which appears to be alcohol related. He had an abdominal ultrasound to further assess for gallstones which was a limited exam due to patient body habitus. There was no evidence of gallstones, gallbladder wall thickening or gallbladder distension , there was note made of severe fatty infiltration of the liver. He has been monitored on the CIWA protocol, his most recent score was zero. His triglycerides are elevated at 284, total cholesterol 180. His lipase is down to 4080 from 8590 yesterday and from 9266 on admission. His abdominal pain has improved significantly from admission and is currently in his lower abdomen. He feels bloated, he is belching, he is not passing flatus, he has not had a bowel movement. He has been ambulating in the halls today. He reports that the last time he had pancreatitis, his bowels took time to return to normal function. He slept well last night. He is experiencing some bilateral lower back discomfort as well, he believes this is related to sleeping in the hospital bed. He is requesting PO fluids. His nausea is improving. He denies any chest pain/pressure, palpitations, edema, shortness of breath, cough, wheezing. Exam Const General: cooperative, no acute distress and not diaphoretic Nutritional Appearance: obese Orientation: alert, awake and oriented x3 HENMT Head: normocephalic and atraumatic Mouth: moist mucous membranes Neck Neck: supple Resp Effort & Inspection: normal respiratory effort (Respirations even and unlabored. ) Auscultation: clear to auscultation bilaterally Cardio Rate: regular rate Heart Sounds: S1 normal, S2 normal and no murmurs GI Inspection: distended (obese, more firm than yesterday.) Palpation: not soft and tender (tenderness now across lower abdomen, was previously diffuse and more severe across upper abdomen and epigastric region.) Auscultation: hypoactive bowel sounds Skin General skin exam: no rashes or lesions noted Neuro General: alert, awake and oriented x3 Speech: speech normal Motor: muscle tone normal throughout and strength 5/5 throughout Extrem General: full ROM, normal gait and no edema Psych Affect: normal affect Objective Objective Clinical Data: Abnormal lab results 11/06/17 11/06/17 Range/Units 06:10 06:10 WBC 16.97 H (4.4-10.8) k/cumm MCV 104.1 H D (80-95) fL MCH 33.8 H (27.0-33.0) pg Plt Count 112 L (130-400) x1000/uL MPV 11.1 H (8.0-11.0) fL Sodium 134 L (136-145) mmol/L Glucose 310 H (70-100) mg/dL Calcium 7.4 L (8.5-10.1) mg/dL Lipase 4080 H (73-393) U/L Vital Signs Temp 36.1 C L 11/06/17 07:26 Pulse 115 H 11/06/17 09:36 Resp 18 11/06/17 04:26 BP 140/87 11/06/17 08:30 Pulse Ox 95 11/06/17 07:26 Intake & Output 11/05/17 11/06/17 11/06/17 23:59 11:59 23:59 Intake Total 1822.5 / 1822.5 1727.5 / 1727.5 Balance 1822.5 / 1822.5 1727.5 / 1727.5 Weight 135.6 kg Intake: IV 1772.5 / 1772.5 1727.5 / 1727.5 Oral 50 / 50 Other: Comment Patient states he has been voiding independently in the toilet with no issues. Voiding Methods Toilet Laboratory Results WBC 16.97 k/cumm (4.4-10.8) H 11/06/17 06:10 RBC 4.62 m/cumm (4.50-6.00) 11/06/17 06:10 Hgb 15.6 g/dL (13.5-17.5) 11/06/17 06:10 Hct 48.1 % (40.0-50.0) 11/06/17 06:10 MCV 104.1 fL (80-95) H D 11/06/17 06:10 MCH 33.8 pg (27.0-33.0) H 11/06/17 06:10 MCHC 32.4 g/dL (32.0-36.0) 11/06/17 06:10 RDW 13.9 % (11.8-14.1) 11/06/17 06:10 Plt Count 112 x1000/uL (130-400) L 11/06/17 06:10 MPV 11.1 fL (8.0-11.0) H 11/06/17 06:10 Immature Gran % 0.2 11/04/17 10:40 Neutrophils % 79.5 11/04/17 10:40 Lymphocytes % 14.1 11/04/17 10:40 Monocytes % 6.0 11/04/17 10:40 Eosinophils % 0.1 11/04/17 10:40 Basophils % 0.1 11/04/17 10:40 Absolute Neutrophils 7.47 k/cumm (1.2-6.7) H 11/04/17 10:40 Absolute Lymphocytes 1.33 k/cumm (1.2-3.4) 11/04/17 10:40 Absolute Monocytes 0.56 k/cumm (0.11-0.7) 11/04/17 10:40 Absolute Eosinophils 0.01 k/cumm (0.0-0.7) 11/04/17 10:40 Absolute Basophils 0.01 k/cumm (0.0-0.2) 11/04/17 10:40 Sodium 134 mmol/L (136-145) L 11/06/17 06:10 Potassium 4.7 mmol/L (3.5-5.1) 11/06/17 06:10 Chloride 102 mmol/L (98-107) 11/06/17 06:10 Carbon Dioxide 23.8 mmol/L (21.0-32.0) 11/06/17 06:10 Anion Gap 8.2 mmol/L (3-11) 11/06/17 06:10 BUN 13 mg/dL (7-18) 11/06/17 06:10 Creatinine 1.24 mg/dL (0.70-1.30) 11/06/17 06:10 Estimated GFR/1.73 m2 >= 60.00 (mL/min/1.73m2) 11/06/17 06:10 Glucose 310 mg/dL (70-100) H 11/06/17 06:10 Calcium 7.4 mg/dL (8.5-10.1) L 11/06/17 06:10 Magnesium 2.2 mg/dL (1.8-2.4) 11/06/17 06:10 Total Bilirubin 1.1 mg/dL (0.2-1.0) H 11/04/17 10:40 AST 61 U/L (15-37) H 11/04/17 10:40 ALT 59 U/L (12-78) 11/04/17 10:40 Alkaline Phosphatase 65 U/L (46-116) 11/04/17 10:40 Troponin I < 0.02 ng/mL (0.00-0.06) 11/04/17 10:40 Total Protein 7.6 g/dL (6.4-8.2) 11/04/17 10:40 Albumin 3.7 g/dL (3.4-5.0) 11/04/17 10:40 Triglycerides 284 mg/dL (30-150) H 11/05/17 06:16 Total Cholesterol 180 mg/dL (50-200) 11/05/17 06:16 LDL Cholesterol Direct 88 mg/dL (<100) 11/05/17 06:16 HDL Cholesterol 58 mg/dL (40-60) 11/05/17 06:16 Lipase 4080 U/L (73-393) H 11/06/17 06:10 Urine Color Dania (Yellow) 11/04/17 13:01 Urine Clarity Clear 11/04/17 13:01 Urine pH 5.5 (5-8) 11/04/17 13:01 Ur Specific [place] >= 1.030 (1.005-1.025) H 11/04/17 13:01 Urine Protein 100 mg/dL (Negative) H 11/04/17 13:01 Urine Ketones 80 mg/dL (Negative) 11/04/17 13:01 Urine Blood Negative (Negative) 11/04/17 13:01 Urine Nitrite Negative (Negative) 11/04/17 13:01 Urine Bilirubin Small (Negative) H 11/04/17 13:01 Urine Urobilinogen 0.2 EU/dL (Up TO 0.2) 11/04/17 13:01 Ur Leukocyte Esterase Negative (Negative) 11/04/17 13:01 Urine RBC Negative (0-2) 11/04/17 13:01 Urine WBC Negative HPF (0-5) 11/04/17 13:01 Ur Epithelial Cells Few HPF (Negative) 11/04/17 13:01 Urine Crystals Negative HPF (Negative) 11/04/17 13:01 Urine Bacteria Few HPF (Negative) 11/04/17 13:01 Urine Casts Negative LPF (Negative) 11/04/17 13:01 Urine Mucus Heavy (Negative) 11/04/17 13:01 Urine Other Negative (Negative) 11/04/17 13:01 Ur Culture Indicated? No 11/04/17 13:01 Urine Glucose 500 mg/dL (Negative) H 11/04/17 13:01
[2017-11-06] MEDS: Pantoprazole 40 MG VIAL IVP (13:31)
--- NOTE | 2017-11-06 14:26 | DI.RAD_ITS ---
SYMPTOMS/DIAGNOSIS: ACUTE PANCREATITIS, ? ILEUS FLAT AND UPRIGHT VIEWS OF THE ABDOMEN: Comparison is made with a CT of the abdomen and pelvis dated October,. Air is seen mainly in the transverse colon and a few loops of small bowel. There are some air-fluid levels, which could indicate a mild ileus. IMPRESSION: Mild small bowel and colonic distention, consistent with an ileus.
[2017-11-06 16:05] LABS: Bilirubin Small (Negative); Blood Small (Negative); Clarity Clear; Glucose >=1000 mg/dL (Negative); Ketones 80 mg/dL (Negative); Leukocyte Esterase Negative (Negative); Nitrite Negative (Negative); Specific Gravity 1.025 (1.005-1.025); Urobilinogen 0.2 EU/dL (Up TO 0.2)
[2017-11-06 16:36] LABS: Bacteria Negative HPF (Negative); C & S Indicated? No; Casts Negative LPF (Negative); Crystals Few Amorphous HPF (Negative); Epithelial Cells Few HPF (Negative); Mucus Negative (Negative); RBC Negative (0-2); WBC 0-2 HPF (0-5)
[2017-11-06] MEDS: HYDROmorphone 2 MG/ML VIAL (18:58)
[2017-11-06] MEDS: Enoxaparin 40 MG/0.4 ML SYR SC (18:59)
[2017-11-06] MEDS: Polyethylene Glycol 3350 17 GM PACKET PO (23:49)
[2017-11-07] VITALS (10 sets, daily range): BP systolic 132–156; BP diastolic 76–98; PULSE 84–98; RESP 18–20; TEMP 36.1–37.3; O2SAT 93–98
[2017-11-07] MEDS: Normal Saline 1,000 ML 150 ML IV ×3 (01:32→17:40)
[2017-11-07] MEDS: HYDROmorphone 2 MG/ML VIAL 1 MG IVP (04:40)
[2017-11-07] MEDS: Insulin Aspart 300 UNITS/3 ML PEN SC ×3 (05:52→17:43)
[2017-11-07 07:13] LABS: HCT 43.4 % (40.0-50.0); HGB 13.9 g/dL (13.5-17.5); Mean Corpuscular Hemoglobin 33.1 pg (27.0-33.0); Mean Corpuscular Volume 103.3 fL (80-95); Mean Platelet Volume 10.5 fL (8.0-11.0); Platelet Count 111 x1000/uL (130-400); RBC Distribution Width 13.8 % (11.8-14.1); White Blood Cell Count 15.29 k/cumm (4.4-10.8)
[2017-11-07 07:22] LABS: Anion Gap 9.1 mmol/L (3-11); BUN 12 mg/dL (7-18); CO2 24.9 mmol/L (21.0-32.0); CREATININE 0.87 mg/dL (0.70-1.30); Calcium 7.3 mg/dL (8.5-10.1); Chloride 100 mmol/L (98-107); Glucose 243 mg/dL (70-100); Lipase 1000 U/L (73-393); Potassium 4.3 mmol/L (3.5-5.1); Sodium 134 mmol/L (136-145)
[2017-11-07] MEDS: glipiZIDE C.R. 5 MG TABCR 10 MG PO (09:18)
[2017-11-07] MEDS: cloNIDine 0.1 MG TAB 0.2 MG PO ×2 (09:18→19:49)
[2017-11-07] MEDS: Allopurinol 300 MG TAB PO (09:19)
[2017-11-07] MEDS: amLODIPine 5 MG TAB PO (09:19)
--- NOTE | 2017-11-07 09:52 | PDOC.CMPRO ---
- If Service Date Differs Date of service: 11/07/17 Time of Service: 09:52 Care Management Progress Note S/O: Pt presented at interdisciplinary rounds.He continues to ambulate his labs are improving. His IV pain medication will be stopped today and providing his bowel function improves he may discharge over the weekend. Anticipate a surgical consult per MD at rounds. A: 51 year old male admitted with acute pancreatitis. P: Oc will be discharged home when medically ready per MD. Anticipate pt will discharge with no services and follow up with PCP. Oc will transport via private vehicle with family/friend. CM will continue to offer support to patient and care team regarding discharge planning and disposition.
--- NOTE | 2017-11-07 12:15 | W.PM.PROGNOT ---
Date of service: 11/07/17 Time of Service: 12:17 Assessment and Plan (1) Acute pancreatitis: Current visit: Yes Status: Acute Continued improvement in Lipase at 1000, down from 4080 yesterday and 9266 on admission. Continue to hold PO intake due to development of ileus. Currently maintained on IVFs. His white blood cell count has increased today. His pain has improved. His abdomen is now distended and he is not passing flatus. Abdominal x-ray has been ordered to assess for ileus. Discussed with Radiologist, Dr. Salcido, who notes that pseudocyst has not changed since last imaged in 2016. She did not see the utility of adding an MRCP at this point. She recommends repeat abdominal CT if indicated. If abdominal x-ray is unremarkable, plan to initiate bowel regimen and possibly allow limited sips of water and ice chips. (2) Ileus: Current visit: Yes Status: Acute Development of likely functional ileus in setting of inflammatory changes from pancreatitis as well as opiate use for pain control. Patient remains NPO but will provide some gentle clears. Also initiated IV Reglan as per surgery recommendations. Continue to monitor symptoms - no need for NGT currently. (3) Diabetes mellitus: Current visit: Yes Status: Chronic Remains on Glipizide, with BS's mostly in the 200's despite NPO status. Continue to hold metformin while inpatient. Monitor fingersticks q6h while NPO, On sliding scale coverage q6h. (4) Alcohol intake above recommended sensible limits: Current visit: Yes Status: Chronic Reportedly decreased alcohol intake. Continue CIWA protocol. (5) History of tobacco use: Current visit: Yes Status: Chronic He uses chewing tobacco. He declines a nicotine patch at this time. (6) Hypertension: Current visit: Yes Status: Chronic Blood pressure remains elevated but improved. Clonidine was restarted yesterday, and Amlodipine added, with IV BB on prn basis. Continue to monitor. (7) DVT prophylaxis: Current visit: Yes Status: Acute SC Lovenox. Subjective Interval history since last seen: 51 year old man with a PMHx significant for alcohol abuse and pancreatitis, as well as diabetes, hypertension and hyperlipidemia, admitted from [facility] ED on 11/04/2017 with a diagnosis of Acute Pancreatitis. Mr. Guillermo He is currently being treated for acute pancreatitis which appears to be alcohol related. Abdominal ultrasound showed a fatty liver without gallstones, and while his TG were elevated they were low level. He also admitted to drinking a 12 pack of beer 2 days prior to his admission. He has been monitored on the [facility] protocol. Epigastric pain and lipase appear improved, but patient has been complaining of worsening abdominal swelling, lack of flatus, and increased belching. Subsequent x-ray showed evidence of an ileus in patient receiving opiates for pain control of pancreatitis. No other events reported. He also has a mild, continued, and unchanged leukocytosis. Remains afebrile. Exam Const General: cooperative and no acute distress Nutritional Appearance: obese Orientation: alert, awake and oriented x3 Neck Neck: supple Chest Chest: normal inspection of the chest Resp Effort & Inspection: normal respiratory effort (Respirations even and unlabored.), no respiratory distress and no use of accessory muscles Auscultation: clear to auscultation bilaterally Cardio Rate: regular rate Heart Sounds: S1 normal, S2 normal and no murmurs GI Inspection: normal to inspection and distended (obese, more firm than yesterday.) Palpation: soft and tender (tenderness now across lower abdomen, was previously diffuse and more severe across upper abdomen and epigastric region.) in the epigastrum, in the LLQ and in the RLQ Auscultation: hypoactive bowel sounds Neuro General: alert, awake and oriented x3 Extrem General: no edema Objective Objective Clinical Data: Abnormal lab results 11/06/17 11/07/17 11/07/17 Range/Units 14:50 06:50 06:50 WBC 15.29 H (4.4-10.8) k/cumm RBC 4.20 L (4.50-6.00) m/cumm MCV 103.3 H (80-95) fL MCH 33.1 H (27.0-33.0) pg Plt Count 111 L (130-400) x1000/uL Sodium 134 L (136-145) mmol/L Glucose 243 H (70-100) mg/dL Calcium 7.3 L (8.5-10.1) mg/dL Lipase 1000 H (73-393) U/L Urine Protein 100 H (Negative) mg/dL Urine Blood Small H (Negative) Urine Bilirubin Small H (Negative) Urine Glucose >=1000 H (Negative) mg/dL Vital Signs Temp 37.1 C 11/07/17 11:50 Pulse 93 H 11/07/17 11:50 Resp 20 11/07/17 11:50 BP 145/84 H 11/07/17 11:50 Pulse Ox 98 11/07/17 11:50 Intake & Output 11/06/17 11/07/17 11/07/17 23:59 11:59 23:59 Intake Total 1080.000 / 0579.917 3291.5 2051. Balance 1080.000 / 2640.138 7100.2051. Intake: IV 1080.000 / 3059.890 4175.5 1951. Oral 100 / 100 Other: Comment Patient has been OOB voiding independently with no issues - states urine is clear and yellow. Void x 1 in toilet Voiding Methods Toilet Laboratory Results WBC 15.29 k/cumm (4.4-10.8) H 11/07/17 06:50 RBC 4.20 m/cumm (4.50-6.00) L 11/07/17 06:50 Hgb 13.9 g/dL (13.5-17.5) 11/07/17 06:50 Hct 43.4 % (40.0-50.0) 11/07/17 06:50 MCV 103.3 fL (80-95) H 11/07/17 06:50 MCH 33.1 pg (27.0-33.0) H 11/07/17 06:50 MCHC 32.0 g/dL (32.0-36.0) 11/07/17 06:50 RDW 13.8 % (11.8-14.1) 11/07/17 06:50 Plt Count 111 x1000/uL (130-400) L 11/07/17 06:50 MPV 10.5 fL (8.0-11.0) 11/07/17 06:50 Immature Gran % 0.2 11/04/17 10:40 Neutrophils % 79.5 11/04/17 10:40 Lymphocytes % 14.1 11/04/17 10:40 Monocytes % 6.0 11/04/17 10:40 Eosinophils % 0.1 11/04/17 10:40 Basophils % 0.1 11/04/17 10:40 Absolute Neutrophils 7.47 k/cumm (1.2-6.7) H 11/04/17 10:40 Absolute Lymphocytes 1.33 k/cumm (1.2-3.4) 11/04/17 10:40 Absolute Monocytes 0.56 k/cumm (0.11-0.7) 11/04/17 10:40 Absolute Eosinophils 0.01 k/cumm (0.0-0.7) 11/04/17 10:40 Absolute Basophils 0.01 k/cumm (0.0-0.2) 11/04/17 10:40 Sodium 134 mmol/L (136-145) L 11/07/17 06:50 Potassium 4.3 mmol/L (3.5-5.1) 11/07/17 06:50 Chloride 100 mmol/L (98-107) 11/07/17 06:50 Carbon Dioxide 24.9 mmol/L (21.0-32.0) 11/07/17 06:50 Anion Gap 9.1 mmol/L (3-11) 11/07/17 06:50 BUN 12 mg/dL (7-18) 11/07/17 06:50 Creatinine 0.87 mg/dL (0.70-1.30) 11/07/17 06:50 Estimated GFR/1.73 m2 >= 60.00 (mL/min/1.73m2) 11/07/17 06:50 Glucose 243 mg/dL (70-100) H 11/07/17 06:50 Calcium 7.3 mg/dL (8.5-10.1) L 11/07/17 06:50 Magnesium 2.2 mg/dL (1.8-2.4) 11/06/17 06:10 Total Bilirubin 1.1 mg/dL (0.2-1.0) H 11/04/17 10:40 AST 61 U/L (15-37) H 11/04/17 10:40 ALT 59 U/L (12-78) 11/04/17 10:40 Alkaline Phosphatase 65 U/L (46-116) 11/04/17 10:40 Troponin I < 0.02 ng/mL (0.00-0.06) 11/04/17 10:40 Total Protein 7.6 g/dL (6.4-8.2) 11/04/17 10:40 Albumin 3.7 g/dL (3.4-5.0) 11/04/17 10:40 Triglycerides 284 mg/dL (30-150) H 11/05/17 06:16 Total Cholesterol 180 mg/dL (50-200) 11/05/17 06:16 LDL Cholesterol Direct 88 mg/dL (<100) 11/05/17 06:16 HDL Cholesterol 58 mg/dL (40-60) 11/05/17 06:16 Lipase 1000 U/L (73-393) H 11/07/17 06:50 Urine Color Yellow (Yellow) 11/06/17 14:50 Urine Clarity Clear 11/06/17 14:50 Urine pH 6.0 (5-8) 11/06/17 14:50 Ur Specific [place] 1.025 (1.005-1.025) 11/06/17 14:50 Urine Protein 100 mg/dL (Negative) H 11/06/17 14:50 Urine Ketones 80 mg/dL (Negative) 11/06/17 14:50 Urine Blood Small (Negative) H 11/06/17 14:50 Urine Nitrite Negative (Negative) 11/06/17 14:50 Urine Bilirubin Small (Negative) H 11/06/17 14:50 Urine Urobilinogen 0.2 EU/dL (Up TO 0.2) 11/06/17 14:50 Ur Leukocyte Esterase Negative (Negative) 11/06/17 14:50 Urine RBC Negative (0-2) 11/06/17 14:50 Urine WBC 0-2 HPF (0-5) 11/06/17 14:50 Ur Epithelial Cells Few HPF (Negative) 11/06/17 14:50 Urine Crystals Few amorphous HPF (Negative) 11/06/17 14:50 Urine Bacteria Negative HPF (Negative) 11/06/17 14:50 Urine Casts Negative LPF (Negative) 11/06/17 14:50 Urine Mucus Negative (Negative) 11/06/17 14:50 Urine Other Negative (Negative) 11/04/17 13:01 Ur Culture Indicated? No 11/06/17 14:50 Urine Glucose >=1000 mg/dL (Negative) H 11/06/17 14:50
--- NOTE | 2017-11-07 12:25 | PGE_ITS ---
Date of service: 11/07/17 Time of Service: 12:17 Assessment and Plan (1) Acute pancreatitis: Current visit: Yes Status: Acute Continued improvement in Lipase at 1000, down from 4080 yesterday and 9266 on admission. Continue to hold PO intake due to development of ileus. Currently maintained on IVFs. His white blood cell count has increased today. His pain has improved. His abdomen is now distended and he is not passing flatus. Abdominal x-ray has been ordered to assess for ileus. Discussed with Radiologist, Dr. Salcido, who notes that pseudocyst has not changed since last imaged in 2016. She did not see the utility of adding an MRCP at this point. She recommends repeat abdominal CT if indicated. If abdominal x-ray is unremarkable, plan to initiate bowel regimen and possibly allow limited sips of water and ice chips. (2) Ileus: Current visit: Yes Status: Acute Development of likely functional ileus in setting of inflammatory changes from pancreatitis as well as opiate use for pain control. Patient remains NPO but will provide some gentle clears. Also initiated IV Reglan as per surgery recommendations. Continue to monitor symptoms - no need for NGT currently. (3) Diabetes mellitus: Current visit: Yes Status: Chronic Remains on Glipizide, with BS's mostly in the 200's despite NPO status. Continue to hold metformin while inpatient. Monitor fingersticks q6h while NPO, On sliding scale coverage q6h. (4) Alcohol intake above recommended sensible limits: Current visit: Yes Status: Chronic Reportedly decreased alcohol intake. Continue CIWA protocol. (5) History of tobacco use: Current visit: Yes Status: Chronic He uses chewing tobacco. He declines a nicotine patch at this time. (6) Hypertension: Current visit: Yes Status: Chronic Blood pressure remains elevated but improved. Clonidine was restarted yesterday, and Amlodipine added, with IV BB on prn basis. Continue to monitor. (7) DVT prophylaxis: Current visit: Yes Status: Acute SC Lovenox. Subjective Interval history since last seen: 51 year old man with a PMHx significant for alcohol abuse and pancreatitis, as well as diabetes, hypertension and hyperlipidemia, admitted from [facility] ED on 11/04/2017 with a diagnosis of Acute Pancreatitis. Mr. Guillermo He is currently being treated for acute pancreatitis which appears to be alcohol related. Abdominal ultrasound showed a fatty liver without gallstones, and while his TG were elevated they were low level. He also admitted to drinking a 12 pack of beer 2 days prior to his admission. He has been monitored on the [facility] protocol. Epigastric pain and lipase appear improved , but patient has been complaining of worsening abdominal swelling, lack of flatus, and increased belching. Subsequent x-ray showed evidence of an ileus in patient receiving opiates for pain control of pancreatitis. No other events reported. He also has a mild, continued, and unchanged leukocytosis. Remains afebrile. Exam Const General: cooperative and no acute distress Nutritional Appearance: obese Orientation: alert, awake and oriented x3 Neck Neck: supple Chest Chest: normal inspection of the chest Resp Effort & Inspection: normal respiratory effort (Respirations even and unlabored. ), no respiratory distress and no use of accessory muscles Auscultation: clear to auscultation bilaterally Cardio Rate: regular rate Heart Sounds: S1 normal, S2 normal and no murmurs GI Inspection: normal to inspection and distended (obese, more firm than yesterday. ) Palpation: soft and tender (tenderness now across lower abdomen, was previously diffuse and more severe across upper abdomen and epigastric region.) in the epigastrum, in the LLQ and in the RLQ Auscultation: hypoactive bowel sounds Neuro General: alert, awake and oriented x3 Extrem General: no edema Objective Objective Clinical Data: Abnormal lab results 11/06/17 11/07/17 11/07/17 Range/Units 14:50 06:50 06:50 WBC 15.29 H (4.4-10.8) k/cumm RBC 4.20 L (4.50-6.00) m/cumm MCV 103.3 H (80-95) fL MCH 33.1 H (27.0-33.0) pg Plt Count 111 L (130-400) x1000/uL Sodium 134 L (136-145) mmol/L Glucose 243 H (70-100) mg/dL Calcium 7.3 L (8.5-10.1) mg/dL Lipase 1000 H (73-393) U/L Urine Protein 100 H (Negative) mg/dL Urine Blood Small H (Negative) Urine Bilirubin Small H (Negative) Urine Glucose >=1000 H (Negative) mg/dL Vital Signs Temp 37.1 C 11/07/17 11:50 Pulse 93 H 11/07/17 11:50 Resp 20 11/07/17 11:50 BP 145/84 H 11/07/17 11:50 Pulse Ox 98 11/07/17 11:50 Intake & Output 11/06/17 11/07/17 11/07/17 23:59 11:59 23:59 Intake Total 1080.000 / 3946.935 3771.5 2051. Balance 1080.000 / 8983.453 1443.2051. Intake: IV 1080.000 / 7904.469 8555.5 1951. Oral 100 / 100 Other: Comment Patient has been OOB voiding independently with no issues - states urine is clear and yellow. Void x 1 in toilet Voiding Methods Toilet Laboratory Results WBC 15.29 k/cumm (4.4-10.8) H 11/07/17 06:50 RBC 4.20 m/cumm (4.50-6.00) L 11/07/17 06:50 Hgb 13.9 g/dL (13.5-17.5) 11/07/17 06:50 Hct 43.4 % (40.0-50.0) 11/07/17 06:50 MCV 103.3 fL (80-95) H 11/07/17 06:50 MCH 33.1 pg (27.0-33.0) H 11/07/17 06:50 MCHC 32.0 g/dL (32.0-36.0) 11/07/17 06:50 RDW 13.8 % (11.8-14.1) 11/07/17 06:50 Plt Count 111 x1000/uL (130-400) L 11/07/17 06:50 MPV 10.5 fL (8.0-11.0) 11/07/17 06:50 Immature Gran % 0.2 11/04/17 10:40 Neutrophils % 79.5 11/04/17 10:40 Lymphocytes % 14.1 11/04/17 10:40 Monocytes % 6.0 11/04/17 10:40 Eosinophils % 0.1 11/04/17 10:40 Basophils % 0.1 11/04/17 10:40 Absolute Neutrophils 7.47 k/cumm (1.2-6.7) H 11/04/17 10:40 Absolute Lymphocytes 1.33 k/cumm (1.2-3.4) 11/04/17 10:40 Absolute Monocytes 0.56 k/cumm (0.11-0.7) 11/04/17 10:40 Absolute Eosinophils 0.01 k/cumm (0.0-0.7) 11/04/17 10:40 Absolute Basophils 0.01 k/cumm (0.0-0.2) 11/04/17 10:40 Sodium 134 mmol/L (136-145) L 11/07/17 06:50 Potassium 4.3 mmol/L (3.5-5.1) 11/07/17 06:50 Chloride 100 mmol/L (98-107) 11/07/17 06:50 Carbon Dioxide 24.9 mmol/L (21.0-32.0) 11/07/17 06:50 Anion Gap 9.1 mmol/L (3-11) 11/07/17 06:50 BUN 12 mg/dL (7-18) 11/07/17 06:50 Creatinine 0.87 mg/dL (0.70-1.30) 11/07/17 06:50 Estimated GFR/1.73 m2 >= 60.00 (mL/min/1.73m2) 11/07/17 06:50 Glucose 243 mg/dL (70-100) H 11/07/17 06:50 Calcium 7.3 mg/dL (8.5-10.1) L 11/07/17 06:50 Magnesium 2.2 mg/dL (1.8-2.4) 11/06/17 06:10 Total Bilirubin 1.1 mg/dL (0.2-1.0) H 11/04/17 10:40 AST 61 U/L (15-37) H 11/04/17 10:40 ALT 59 U/L (12-78) 11/04/17 10:40 Alkaline Phosphatase 65 U/L (46-116) 11/04/17 10:40 Troponin I < 0.02 ng/mL (0.00-0.06) 11/04/17 10:40 Total Protein 7.6 g/dL (6.4-8.2) 11/04/17 10:40 Albumin 3.7 g/dL (3.4-5.0) 11/04/17 10:40 Triglycerides 284 mg/dL (30-150) H 11/05/17 06:16 Total Cholesterol 180 mg/dL (50-200) 11/05/17 06:16 LDL Cholesterol Direct 88 mg/dL (<100) 11/05/17 06:16 HDL Cholesterol 58 mg/dL (40-60) 11/05/17 06:16 Lipase 1000 U/L (73-393) H 11/07/17 06:50 Urine Color Yellow (Yellow) 11/06/17 14:50 Urine Clarity Clear 11/06/17 14:50 Urine pH 6.0 (5-8) 11/06/17 14:50 Ur Specific [place] 1.025 (1.005-1.025) 11/06/17 14:50 Urine Protein 100 mg/dL (Negative) H 11/06/17 14:50 Urine Ketones 80 mg/dL (Negative) 11/06/17 14:50 Urine Blood Small (Negative) H 11/06/17 14:50 Urine Nitrite Negative (Negative) 11/06/17 14:50 Urine Bilirubin Small (Negative) H 11/06/17 14:50 Urine Urobilinogen 0.2 EU/dL (Up TO 0.2) 11/06/17 14:50 Ur Leukocyte Esterase Negative (Negative) 11/06/17 14:50 Urine RBC Negative (0-2) 11/06/17 14:50 Urine WBC 0-2 HPF (0-5) 11/06/17 14:50 Ur Epithelial Cells Few HPF (Negative) 11/06/17 14:50 Urine Crystals Few amorphous HPF (Negative) 11/06/17 14:50 Urine Bacteria Negative HPF (Negative) 11/06/17 14:50 Urine Casts Negative LPF (Negative) 11/06/17 14:50 Urine Mucus Negative (Negative) 11/06/17 14:50 Urine Other Negative (Negative) 11/04/17 13:01 Ur Culture Indicated? No 11/06/17 14:50 Urine Glucose >=1000 mg/dL (Negative) H 11/06/17 14:50
[2017-11-07] MEDS: Metoclopramide 10 MG/2 ML VIAL IVP ×2 (13:50→19:20)
[2017-11-07] MEDS: ACETAMINOPHEN 1,000 MG/100 ML BTL 400 MG IVPB ×2 (13:51→21:34)
[2017-11-07] MEDS: Pantoprazole 40 MG VIAL IVP (13:51)
[2017-11-07] MEDS: Normal Saline Flush 10 ML SYR IVP ×2 (13:51→19:20)
[2017-11-07] MEDS: Enoxaparin 40 MG/0.4 ML SYR SC (17:40)
[2017-11-08] VITALS (8 sets, daily range): BP systolic 132–156; BP diastolic 76–86; PULSE 83–92; RESP 16–20; TEMP 36.4–37.4; O2SAT 96–99
[2017-11-08] MEDS: Normal Saline 1,000 ML 150 ML IV ×2 (00:04→06:32)
[2017-11-08] MEDS: Insulin Aspart 300 UNITS/3 ML PEN SC ×4 (00:04→18:40)
[2017-11-08] MEDS: Metoclopramide 10 MG/2 ML VIAL IVP ×3 (01:56→12:15)
[2017-11-08] MEDS: Normal Saline Flush 10 ML SYR IVP ×2 (06:05→14:47)
[2017-11-08] MEDS: ACETAMINOPHEN 1,000 MG/100 ML BTL 400 MG IVPB (06:28)
[2017-11-08 07:27] LABS: HCT 37.8 % (40.0-50.0); HGB 12.3 g/dL (13.5-17.5); Mean Corp. HGB Concentration 32.5 g/dL (32.0-36.0); Mean Corpuscular Hemoglobin 33.2 pg (27.0-33.0); Mean Corpuscular Volume 101.9 fL (80-95); Mean Platelet Volume 10.5 fL (8.0-11.0); Platelet Count 129 x1000/uL (130-400); RBC 3.71 m/cumm (4.50-6.00); RBC Distribution Width 13.7 % (11.8-14.1); White Blood Cell Count 11.58 k/cumm (4.4-10.8)
[2017-11-08 07:33] LABS: Anion Gap 13.2 mmol/L (3-11); BUN 10 mg/dL (7-18); CO2 21.8 mmol/L (21.0-32.0); CREATININE 0.69 mg/dL (0.70-1.30); Calcium 7.1 mg/dL (8.5-10.1); Chloride 100 mmol/L (98-107); Glucose 248 mg/dL (70-100); Lipase 398 U/L (73-393); Potassium 3.5 mmol/L (3.5-5.1); Sodium 135 mmol/L (136-145)
[2017-11-08] MEDS: glipiZIDE C.R. 5 MG TABCR 10 MG PO (08:40)
[2017-11-08] MEDS: Allopurinol 300 MG TAB PO (08:40)
[2017-11-08] MEDS: cloNIDine 0.1 MG TAB 0.2 MG PO ×2 (08:40→20:18)
[2017-11-08] MEDS: amLODIPine 5 MG TAB PO (08:40)
[2017-11-08] MEDS: Potassium Chloride 20 MEQ TABCR 40 MEQ PO (09:20)
[2017-11-08] MEDS: Naproxen 500 MG TAB PO ×2 (10:27→19:12)
--- NOTE | 2017-11-08 14:40 | W.PM.PROGNOT ---
Date of service: 11/08/17 Time of Service: 14:41 Assessment and Plan (1) Acute pancreatitis: Current visit: Yes Status: Acute Continued improvement in Lipase at 398, down from 1000 yesterday and 9266 on admission. Will advance diet today. Patient asked to notify nursing staff if he develops further abdominal discomfort. Currently maintained on IVFs, however if he is able to take in oral fluids we will plan to discontinue later this afternoon. His white blood cell count has come down since yesterday and is currently 11.58, down from 15.29. His pain has improved. Has had a bowel movement and is passing gas. (2) Ileus: Current visit: Yes Status: Acute Continue IV Reglan. Has had a bowel movement. Encouraged continued ambulation. (3) Diabetes mellitus: Current visit: Yes Status: Chronic Continue glipizide. Metformin currently on hold. Continue carbohydrate counting diet. No longer n.p.o. status so we will adjust fingersticks from every 6 hours to ACHS. Fingersticks continued to be in the 200 range. (4) Alcohol intake above recommended sensible limits: Current visit: Yes Status: Chronic Is barely scoring on CIWA and is likely past the time period where he would be showing s/sx of withdrawal. No further need for frequent nursing assessment and this will be discontinued. (5) History of tobacco use: Current visit: Yes Status: Chronic He uses chewing tobacco. He declines a nicotine patch at this time. (6) Hypertension: Current visit: Yes Status: Chronic BP has improved with re-initiation of clonidine and addition of CCB. Continue to monitor. (7) DVT prophylaxis: Current visit: Yes Status: Acute SC Lovenox. Subjective Patient reports: no new complaints, feels better, pain is less, tolerating liquids well, tolerating a regular diet and bowel movement Interval history since last seen: Dino is a pleasant 51-year-old gentleman with past medical history significant for alcohol abuse and pancreatitis, diabetes, hypertension and hyperlipidemia who was admitted on 11/04/2017 with acute pancreatitis. Today his diet was advanced and he tolerated this well. Is no longer having any abdominal discomfort. The thing that is bothering him the most is his chronic low back pain. At home he typically takes naproxen or ibuprofen for this. He believes his back pain is exacerbated from sleeping in a hospital bed. Was being monitored on a CIWA protocol, however was not scoring so this has been discontinued. He has had a bowel movement. Admits to some weakness with ambulation, otherwise has no other concerns. Exam Narrative Exam Narrative: General: 51yo male. Obese. Well developed and well nourished. No acute distress. A/Ox3. Pleasant and cooperative. HEENT: Normocephalic, Atraumatic. Conjunctiva clear, sclera non-icteric. PERRL. EOMI. Moist mucous membranes, oropharynx clear. Neck supple, no JVD, thyromegaly or lymphadenopathy. Cardiovascular: Regular rate and rhythm, S1S2, no S3 or S4. No murmur, rub, gallop. Respiratory: Chest expansion symmetrical, respirations unlabored. Lungs clear to auscultation, no adventitious breath sounds. GI: Abdomen round, soft, non-tender to palpation. Normoactive bowel sounds in all 4 quadrants. No hepatosplenomegaly or prominent masses, although somewhat difficult to assess given body habitus. : deferred Extremities: Lower extremities without deformity or edema Neurological: non-focal. CN 2-12 grossly intact. Psychiatric: pleasant and cooperative. Speech clear and articulate. Mood and affect normal. Objective Objective Clinical Data: Abnormal lab results 11/08/17 11/08/17 Range/Units 06:55 06:55 WBC 11.58 H (4.4-10.8) k/cumm RBC 3.71 L (4.50-6.00) m/cumm Hgb 12.3 L (13.5-17.5) g/dL Hct 37.8 L (40.0-50.0) % MCV 101.9 H (80-95) fL MCH 33.2 H (27.0-33.0) pg Plt Count 129 L (130-400) x1000/uL Sodium 135 L (136-145) mmol/L Anion Gap 13.2 H (3-11) mmol/L Creatinine 0.69 L (0.70-1.30) mg/dL Glucose 248 H (70-100) mg/dL Calcium 7.1 L (8.5-10.1) mg/dL Lipase 398 H (73-393) U/L Vital Signs Temp 36.6 C 11/08/17 08:05 Pulse 83 11/08/17 11:30 Resp 18 11/08/17 08:05 BP 137/76 11/08/17 08:05 Pulse Ox 96 11/08/17 08:05 Intake & Output 11/07/17 11/08/17 11/08/17 23:59 11:59 23:59 Intake Total 1412 / 1412 360 / 360 Balance 1412 / 1412 360 / 360 Weight 141.5 kg Intake: IV 1262 / 1262 1930.5 / 1930.5 Oral 150 / 150 60 / 60 360 / 360 Other: Comment mixed with watery stool voiding in toilet; urine not assessed at this time Stool Size Moderate Moderate Stool Characteristics Liquid Liquid Soft Liquid Brown Voiding Methods Toilet Toilet Laboratory Results WBC 11.58 k/cumm (4.4-10.8) H 11/08/17 06:55 RBC 3.71 m/cumm (4.50-6.00) L 11/08/17 06:55 Hgb 12.3 g/dL (13.5-17.5) L 11/08/17 06:55 Hct 37.8 % (40.0-50.0) L 11/08/17 06:55 MCV 101.9 fL (80-95) H 11/08/17 06:55 MCH 33.2 pg (27.0-33.0) H 11/08/17 06:55 MCHC 32.5 g/dL (32.0-36.0) 11/08/17 06:55 RDW 13.7 % (11.8-14.1) 11/08/17 06:55 Plt Count 129 x1000/uL (130-400) L 11/08/17 06:55 MPV 10.5 fL (8.0-11.0) 11/08/17 06:55 Immature Gran % 0.2 11/04/17 10:40 Neutrophils % 79.5 11/04/17 10:40 Lymphocytes % 14.1 11/04/17 10:40 Monocytes % 6.0 11/04/17 10:40 Eosinophils % 0.1 11/04/17 10:40 Basophils % 0.1 11/04/17 10:40 Absolute Neutrophils 7.47 k/cumm (1.2-6.7) H 11/04/17 10:40 Absolute Lymphocytes 1.33 k/cumm (1.2-3.4) 11/04/17 10:40 Absolute Monocytes 0.56 k/cumm (0.11-0.7) 11/04/17 10:40 Absolute Eosinophils 0.01 k/cumm (0.0-0.7) 11/04/17 10:40 Absolute Basophils 0.01 k/cumm (0.0-0.2) 11/04/17 10:40 Sodium 135 mmol/L (136-145) L 11/08/17 06:55 Potassium 3.5 mmol/L (3.5-5.1) 11/08/17 06:55 Chloride 100 mmol/L (98-107) 11/08/17 06:55 Carbon Dioxide 21.8 mmol/L (21.0-32.0) 11/08/17 06:55 Anion Gap 13.2 mmol/L (3-11) H 11/08/17 06:55 BUN 10 mg/dL (7-18) 11/08/17 06:55 Creatinine 0.69 mg/dL (0.70-1.30) L 11/08/17 06:55 Estimated GFR/1.73 m2 >= 60.00 (mL/min/1.73m2) 11/08/17 06:55 Glucose 248 mg/dL (70-100) H 11/08/17 06:55 Calcium 7.1 mg/dL (8.5-10.1) L 11/08/17 06:55 Magnesium 2.2 mg/dL (1.8-2.4) 11/06/17 06:10 Total Bilirubin 1.1 mg/dL (0.2-1.0) H 11/04/17 10:40 AST 61 U/L (15-37) H 11/04/17 10:40 ALT 59 U/L (12-78) 11/04/17 10:40 Alkaline Phosphatase 65 U/L (46-116) 11/04/17 10:40 Troponin I < 0.02 ng/mL (0.00-0.06) 11/04/17 10:40 Total Protein 7.6 g/dL (6.4-8.2) 11/04/17 10:40 Albumin 3.7 g/dL (3.4-5.0) 11/04/17 10:40 Triglycerides 284 mg/dL (30-150) H 11/05/17 06:16 Total Cholesterol 180 mg/dL (50-200) 11/05/17 06:16 LDL Cholesterol Direct 88 mg/dL (<100) 11/05/17 06:16 HDL Cholesterol 58 mg/dL (40-60) 11/05/17 06:16 Lipase 398 U/L (73-393) H 11/08/17 06:55 Urine Color Yellow (Yellow) 11/06/17 14:50 Urine Clarity Clear 11/06/17 14:50 Urine pH 6.0 (5-8) 11/06/17 14:50 Ur Specific [place] 1.025 (1.005-1.025) 11/06/17 14:50 Urine Protein 100 mg/dL (Negative) H 11/06/17 14:50 Urine Ketones 80 mg/dL (Negative) 11/06/17 14:50 Urine Blood Small (Negative) H 11/06/17 14:50 Urine Nitrite Negative (Negative) 11/06/17 14:50 Urine Bilirubin Small (Negative) H 11/06/17 14:50 Urine Urobilinogen 0.2 EU/dL (Up TO 0.2) 11/06/17 14:50 Ur Leukocyte Esterase Negative (Negative) 11/06/17 14:50 Urine RBC Negative (0-2) 11/06/17 14:50 Urine WBC 0-2 HPF (0-5) 11/06/17 14:50 Ur Epithelial Cells Few HPF (Negative) 11/06/17 14:50 Urine Crystals Few amorphous HPF (Negative) 11/06/17 14:50 Urine Bacteria Negative HPF (Negative) 11/06/17 14:50 Urine Casts Negative LPF (Negative) 11/06/17 14:50 Urine Mucus Negative (Negative) 11/06/17 14:50 Urine Other Negative (Negative) 11/04/17 13:01 Ur Culture Indicated? No 11/06/17 14:50 Urine Glucose >=1000 mg/dL (Negative) H 11/06/17 14:50
[2017-11-08] MEDS: Potassium Chloride 10 MEQ TABCR PO (14:47)
--- NOTE | 2017-11-08 14:51 | PDOC.CMPRO ---
- If Service Date Differs Date of service: 11/08/17 Time of Service: 14:51 Care Management Progress Note S/O: Pt presented at interdisciplinary rounds.CM met with patient at the bedside he feels he is ready to return home. He states he is hungry and feels that he could tolerate at least jello. Per MD diet will be advance today and if tolerated and labs continue to improve he will be discharged on Thursday. Dino is requesting pain mediation for his back. He states he stands on his feet all day for work. He has chronic back pain which he takes Alieve for daily. He is requesting NSAID and heating pad to his back. CM provided education to patient related to causes for pancreatic inflammation and avoiding foods that are high in fat and avoid alcoholic beverages. Patient states he has been dealing with some difficult situations and he has used more alcohol than normal lately. He denies the intention to use alcohol again and feels that he can outreach for support if he needs it. A: 51 year old male admitted with acute pancreatitis. P: Oc will be discharged home when medically ready per MD. Anticipate pt will discharge with no services and follow up with PCP. Oc will transport via private vehicle with family/friend. CM will continue to offer support to patient and care team regarding discharge planning and disposition.
[2017-11-08] MEDS: Enoxaparin 40 MG/0.4 ML SYR SC (18:40)
[2017-11-09] MEDS: Insulin Aspart 300 UNITS/3 ML PEN SC (00:12)
[2017-11-09] MEDS: Acetaminophen 325 MG TAB 650 MG PO ×2 (00:12→05:48)
[2017-11-09 04:08] VITALS: BP 138/87; PULSE 77; RESP 16; TEMP 36.5; O2SAT 98
[2017-11-09 07:14] LABS: HCT 37.4 % (40.0-50.0); HGB 12.3 g/dL (13.5-17.5); Mean Corp. HGB Concentration 32.9 g/dL (32.0-36.0); Mean Corpuscular Hemoglobin 33.2 pg (27.0-33.0); Mean Corpuscular Volume 100.8 fL (80-95); Mean Platelet Volume 10.3 fL (8.0-11.0); Platelet Count 150 x1000/uL (130-400); RBC 3.71 m/cumm (4.50-6.00); RBC Distribution Width 13.8 % (11.8-14.1); White Blood Cell Count 8.79 k/cumm (4.4-10.8)
[2017-11-09 07:34] LABS: Anion Gap 7.4 mmol/L (3-11); BUN 8 mg/dL (7-18); CO2 28.6 mmol/L (21.0-32.0); CREATININE 0.66 mg/dL (0.70-1.30); Calcium 7.5 mg/dL (8.5-10.1); Chloride 100 mmol/L (98-107); Glucose 231 mg/dL (70-100); Lipase 352 U/L (73-393); Potassium 3.5 mmol/L (3.5-5.1); Sodium 136 mmol/L (136-145)
[2017-11-09 07:35] VITALS: O2SAT 97
[2017-11-09 07:38] VITALS: BP 144/84; PULSE 79; RESP 16; TEMP 36.6; O2SAT 96
[2017-11-09] MEDS: cloNIDine 0.1 MG TAB 0.2 MG PO (08:04)
[2017-11-09] MEDS: Pantoprazole 40 MG TABCR PO (08:04)
[2017-11-09] MEDS: amLODIPine 5 MG TAB PO (08:04)
[2017-11-09] MEDS: glipiZIDE C.R. 5 MG TABCR 10 MG PO (08:04)
[2017-11-09] MEDS: Allopurinol 300 MG TAB PO (08:04)
[2017-11-09] MEDS: metFORMIN 500 MG TAB 1000 MG PO (09:17)
--- NOTE | 2017-11-09 09:49 | W.PM.DS.N ---
DS: Diagnosis Discharge Diagnosis (1) Acute pancreatitis: Status: Acute (2) Ileus: Status: Acute (3) Diabetes mellitus: Status: Chronic (4) Alcohol intake above recommended sensible limits: Status: Chronic (5) History of tobacco use: Status: Chronic (6) Hypertension: Status: Chronic Discharge Plan Disposition Patient Disposition: HOME Condition: Stable Discharge Details Reason For Visit: ACUTE PANCREATITIS Admit Date/Time: 11/04/17 14:52 Admit Provider: Lewis Jean-Baptiste Attending Provider: Lewis Jean-Baptiste [facility] Hospital Course: Dino is a 51-year-old gentleman with past medical history significant for diabetes, hypertension, hyperlipidemia, history of alcohol abuse who was admitted to the hospitalist service on November 04, 2017 with acute pancreatitis. At the time of admission his lipase level was 9266. Additionally he had CT findings suggestive of pancreatitis. He was admitted to the medical surgical unit with IV fluid hydration, analgesics, antiemetics and was initially maintained on n.p.o. status. His lipase continued to down trend, however he continued with a significant amount of abdominal tenderness. He underwent an abdominal ultrasound which was somewhat limited secondary to body habitus, however there is no evidence of gallstones, gallbladder wall thickening or gallbladder distention. He does have severe fatty infiltration of the liver. Triglycerides were elevated at 284. He did have an issue with constipation. On hospital day 3 his abdomen became distended and he was not passing gas. Abdominal x-ray suggested possible ileus. Additionally there was a pancreatic pseudocyst, however the radiologist did not think he needed an MRCP. The following day after ambulating he did finally have a bowel movement with some improvement of his abdominal symptoms. Yesterday his diet was advanced and he tolerated this well with no recurrence of abdominal pain. Today his lipase is at the upper limit of normal at 352. During his hospitalization he was noted to be hypertensive, therefore amlodipine 5 mg daily was added to his regimen with notable improvement in his blood pressure. Home Meds and New Rx's Prescriptions: New amlodipine 5 mg Tablet 5 mg PO DAILY 30 Days Qty: 0 RF: 0 pantoprazole 40 mg Tablet,Delayed Release (Dr/Ec) 40 mg PO DAILY@0730 30 Days Qty: 0 RF: 0 Continue allopurinol 300 mg tablet 300 mg PO DAILY RF: 0 buspirone 15 mg tablet 15 mg PO TID PRNRF: 0 clonidine HCl 0.2 mg tablet 0.2 mg PO BID RF: 0 glipizide 10 mg tablet extended release 24hr 10 mg PO DAILY RF: 0 metformin 1,000 mg tablet 1,000 mg PO BID RF: 0 tadalafil 5 mg tablet 5 mg PO ONCE PRNRF: 0 albuterol sulfate [Ventolin HFA] 8 GM HFA aerosol inhaler 2 puff Inhalation QID PRNQty: 3 RF: 4 multivitamin [Daily Multi-Vitamin] 1 EACH tablet 1 ea PO RF: 0 Discharge Instructions Instructions: Pancreatitis (DC) Additional Instructions: Follow-up with your PCP within 5-7 days Stand Alone Forms: Nursing Discharge Form Referrals: Stephanie Romero MD, [place] [Primary Care Provider] - (The office will call you with an appointment date and time.) Activity:: Activity as Tolerated Equipment/Supplies:: No Equipment Needed Diet:: Carb Counting Discharge Orders Discharge Orders: Discharge Order (Routine); Ordered 11/09/17 Ordered By: Stella Cortez Exam Narrative Exam Narrative: General: 51yo male. Obese. Well developed and well nourished. No acute distress. A/Ox3. Pleasant and cooperative. HEENT: Normocephalic, Atraumatic. Conjunctiva clear, sclera non-icteric. PERRL. EOMI. Moist mucous membranes, oropharynx clear. Neck supple, no JVD, thyromegaly or lymphadenopathy. Cardiovascular: Regular rate and rhythm, S1S2, no S3 or S4. No murmur, rub, gallop. Respiratory: Chest expansion symmetrical, respirations unlabored. Lungs clear to auscultation, no adventitious breath sounds. GI: Abdomen round, obese, soft, non-tender to palpation. Normoactive bowel sounds in all 4 quadrants. No hepatosplenomegaly or prominent masses although difficult to assess given body habitus. : deferred Extremities: Lower extremities without deformity or edema Neurological: non-focal. CN 2-12 grossly intact. Psychiatric: pleasant and cooperative. Speech clear and articulate. Mood and affect normal. DS: Data Vitals/I&O Vitals and I&O: Vital Signs Temp 36.6 C 11/09/17 07:38 Pulse 79 11/09/17 07:38 Resp 16 09/10/18 07:38 BP 144/84 H 11/09/17 07:38 Pulse Ox 96 11/09/17 07:38 Intake & Output 11/08/17 11/08/17 11/09/17 11:59 23:59 11:59 Intake Total 2090.5 / 2090.5 2200 / 2200 1070 / 1070 Balance 2090.5 / 2090.5 2200 / 2200 1070 / 1070 Weight 141.5 kg 142.2 kg Intake: IV 2030.5 / 2030.5 1000 / 1000 Oral 60 / 60 1200 / 1200 1070 / 1070 Other: Urine Color Yellow Yellow Urine Appearance Clear Clear Urine Odor Normal None Comment voiding in toilet; urine not assessed at this time Void x1 in the toilet. Stool Size Moderate Small Stool Characteristics Liquid Soft Soft Liquid Mucoid Brown Brown Voiding Methods Toilet Toilet Toilet Labs on day of discharge: Labs from last 24 hours 11/09/17 11/09/17 06:12 06:12 WBC 8.79 RBC 3.71 L Hgb 12.3 L Hct 37.4 L MCV 100.8 H MCH 33.2 H MCHC 32.9 RDW 13.8 Plt Count 150 MPV 10.3 Sodium 136 Potassium 3.5 Chloride 100 Carbon Dioxide 28.6 Anion Gap 7.4 BUN 8 Creatinine 0.66 L Estimated GFR/1.73 m2 >= 60.00 Glucose 231 H Calcium 7.5 L Lipase 352
--- NOTE | 2017-11-09 10:20 | PDOC.CMDIS ---
- If Service Date Differs Date of service: 11/09/17 Time of Service: 10:20 LACE Index Scoring Tool - Questions: Length of Stay (in days): 4 - 6 Acuity (Admit via E.D.?): Yes Comorbidities: Diabetes w/o Complication E.D. Visits: 1 - Answers: Total Score: 9 Risk of Readmission: Low Risk Care Management Discharge Reason for Hospitalization: Acute pancreatitis Discharge Plan: Dino will return home with no services. He will F/U with PCP and plan of care as prescribed. Dino' family will transport. Patient/Family Education Needs: Review DC instructions, any limitations, and discussion Ask Me Three
== END 2017-11-09 11:24 | disposition home or self-care (01) | DRG 439 ==
LOC: ER 16:16 → MS 16:52
PROVIDERS: Nurse Practitioner; Admitting Provider Internal Medicine; Emergency Provider Physician Assistant; PCP Family Medicine; Visit Provider Internal Medicine
DX: K85.20 Alcohol induced acute pancreatitis without necrosis or infection (principal); K56.7 Ileus, unspecified; K86.3 Pseudocyst of pancreas; E11.9 Type 2 diabetes mellitus without complications; I10 Essential (primary) hypertension; E78.5 Hyperlipidemia, unspecified; F10.10 Alcohol abuse, uncomplicated; K76.0 Fatty (change of) liver, not elsewhere classified; F17.220 Nicotine dependence, chewing tobacco, uncomplicated; F41.9 Anxiety disorder, unspecified; Z63.79 Other stressful life events affecting family and household; Z79.84 Long term (current) use of oral hypoglycemic drugs
CPT/HCPCS: 36415; 80048; 80053; 80061; 83690; 83721; 85027; 93005; 96361; 96365; 96375; 96376; 99222; 99225; 99232; 99233; 99239; 99285; J1650; 74019; 74177; 76700; 81003; 81015; 83735; 84484; 85025; 93010; J0131; J2270; J2405; J2765; J3475; J3490

== ENCOUNTER 2017-11-21 18:03 | Inpatient (IN) | payer BC, SELFPAY ==
[2017-11-21] VITALS (22 sets, daily range): BP systolic 128–172; BP diastolic 75–102; PULSE 85–95; RESP 12–20; TEMP 36.6–37.2; O2SAT 96–100
--- NOTE | 2017-11-21 18:12 | W.ED.GENAD ---
Discharge Plan Discharge Details Chief Complaint: [facility]Medical Primary Care Provider: Stephanie Romero ED Provider: Adia Rubio Home Meds and New Rx's Prescriptions: No Action allopurinol 300 mg tablet 300 mg PO DAILY RF: 0 buspirone 15 mg tablet 15 mg PO TID PRNRF: 0 clonidine HCl 0.2 mg tablet 0.2 mg PO BID RF: 0 glipizide 10 mg tablet extended release 24hr 10 mg PO DAILY RF: 0 metformin 1,000 mg tablet 1,000 mg PO BID RF: 0 tadalafil 5 mg tablet 5 mg PO ONCE PRNRF: 0 bupropion HCl 150 mg tablet extended release 24 hr 150 mg PO QAM Qty: 90 RF: 3 albuterol sulfate [Ventolin HFA] 8 GM HFA aerosol inhaler 2 puff Inhalation PRN PRNQty: 3 RF: 4 multivitamin [Daily Multi-Vitamin] 1 EACH tablet 1 ea PO DAILY RF: 0 furosemide 40 mg tablet 40 mg PO DAILY Qty: 3 RF: 0 amlodipine 5 mg Tablet 5 mg PO DAILY 30 Days Qty: 0 RF: 0 pantoprazole 40 mg Tablet,Delayed Release (Dr/Ec) 40 mg PO DAILY@0730 30 Days Qty: 0 RF: 0 HPI General Date/Time Provider Initiated Documentation: 11/21/17 18:04. Related Data Home Medications Medication Instructions Recorded Confirmed albuterol sulfate [Ventolin HFA] 2 puff INHALATION PRN PRN #3 puff 07/01/12 11/19/17 multivitamin [Daily Multi-Vitamin] 1 ea PO DAILY 10/29/16 11/19/17 allopurinol 300 mg tablet 300 mg PO DAILY 11/06/17 11/19/17 buspirone 15 mg tablet 15 mg PO TID PRN 11/06/17 11/19/17 clonidine HCl 0.2 mg tablet 0.2 mg PO BID 11/06/17 11/19/17 glipizide ER 10 mg tablet, 10 mg PO DAILY 11/06/17 11/19/17 extended release 24 hr metformin 1,000 mg tablet 1,000 mg PO BID 11/06/17 11/19/17 tadalafil 5 mg tablet 5 mg PO ONCE PRN 11/06/17 11/19/17 amlodipine 5 mg PO DAILY 30 Days #0 tab 11/09/17 11/19/17 pantoprazole 40 mg PO DAILY@0730 30 Days #0 tab 11/09/17 11/19/17 furosemide 40 mg tablet 40 mg PO DAILY #3 tab 11/11/17 11/19/17 bupropion HCl XL 150 mg 24 hr 150 mg PO QAM #90 tab 11/19/17 11/19/17 tablet, extended release Previous Rx's Medication Instructions Recorded amlodipine 5 mg PO DAILY 30 Days #0 tab 11/09/17 pantoprazole 40 mg PO DAILY@0730 30 Days #0 tab 11/09/17 furosemide 40 mg tablet 40 mg PO DAILY #3 tab 11/11/17 bupropion HCl XL 150 mg 24 hr 150 mg PO QAM #90 tab 11/19/17 tablet, extended release Allergies Allergy/AdvReac Type Severity Reaction Status Date / Time morphine AdvReac Intermediate Narcotic Unverified 11/19/17 14:04 induced constipation General Stated Complaint: [facility] DELMY: 3 PFSH Family History Grandfather Myocardial infarction Mother No problems noted. Father No problems noted. Grandfather Personal history of malignant neoplasm Grandmother No problems noted. Grandmother No problems noted. 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 [employer] Smoking/Tobacco Use Status: Never alcohol intake: current alcohol intake frequency: a few times a week Surgical History Arthroplasty of knee (~05/2004) Course Vital Signs Temperature 97.9 F 11/21/17 18:06 Pulse 94 H 11/21/17 18:06 Respiratory Rate 15 11/21/17 18:06 Blood Pressure 164/102 H 11/21/17 18:06 Pulse Oximetry 99 11/21/17 18:06 Temperature 97.9 F 11/21/17 18:06 Temperature Source Temporal Artery Scan 11/21/17 18:06 Pulse 94 H 11/21/17 18:06 Respiratory Rate 15 11/21/17 18:06 Blood Pressure 164/102 H 11/21/17 18:06 Blood Pressure Position Supine 11/21/17 18:06 Pulse Oximetry 99 11/21/17 18:06 Oxygen Delivery Method Room Air 11/21/17 18:06 Oxygen Flow Rate 0 11/21/17 18:06
[2017-11-21] MEDS: Normal Saline 1,000 ML 1000 ML IV ×2 (18:49→19:49)
--- NOTE | 2017-11-21 18:51 | W.ED.GENAD ---
Discharge Plan Disposition Patient Disposition: [facility] INPATIENT Condition: Stable Discharge Details Chief Complaint: GenMedical Clinical Impression: Stroke, Chronic hyperglycemia, Acute dehydration Primary Care Provider: Stephanie Romero ED Provider: Shahram Springer Home Meds and New Rx's Prescriptions: No Action allopurinol 300 mg tablet 300 mg PO DAILY RF: 0 buspirone 15 mg tablet 15 mg PO TID PRNRF: 0 clonidine HCl 0.2 mg tablet 0.2 mg PO BID RF: 0 glipizide 10 mg tablet extended release 24hr 10 mg PO DAILY RF: 0 metformin 1,000 mg tablet 1,000 mg PO BID RF: 0 tadalafil 5 mg tablet 5 mg PO ONCE PRNRF: 0 bupropion HCl 150 mg tablet extended release 24 hr 150 mg PO QAM Qty: 90 RF: 3 albuterol sulfate [Ventolin HFA] 8 GM HFA aerosol inhaler 2 puff Inhalation PRN PRNQty: 3 RF: 4 multivitamin [Daily Multi-Vitamin] 1 EACH tablet 1 ea PO DAILY RF: 0 furosemide 40 mg tablet 40 mg PO DAILY Qty: 3 RF: 0 amlodipine 5 mg Tablet 5 mg PO DAILY 30 Days Qty: 0 RF: 0 pantoprazole 40 mg Tablet,Delayed Release (Dr/Ec) 40 mg PO DAILY@0730 30 Days Qty: 0 RF: 0 Medical Decision Making This is a 52-year-old male with past medical history of type 2 diabetes who presents today for evaluation of malaise and fatigue over the last few days. States that he does not have normal energy that he would expect. He is noted an increase in urinary frequency, but denies any dysuria. He does not check his sugars regularly at home, but is expecting them to be high. He does admit to some very mild blurry vision, but denies any significant headache. Physical exam demonstrates no focal neurologic deficit. Bedside Accu-Chek demonstrates a glucose of 477. The patient is a type II diabetic. I feel that his symptoms most likely secondary to hyperglycemia, with secondary dehydration, leading to a clinical picture of HH NK. We will rehydrate, assess his acid base status, control his sugars, evaluate for any other potential acute process. EKG 18: 47 Rate 90, intervals normal, sinus rhythm, RSR in V1, no significant ST elevations or depressions. No Q waves. No peaking of the T waves. No other acute abnormalities 8:04 PM Patient does demonstrate hyponatremia however this is secondary to his elevated glucose. Corrected sodium is 134. We will continue to rehydrate, and reassess his sugar levels. 8:55 PM Patient's VBG is normal. No signs of acidosis. Sugars are improving. Chest x-ray is negative for any acute process per virtual radiology. Troponin, and EKG are benign. Mild leukocytosis, and increased platelets, I believe this is secondary to his notable dehydration. The patient's CT scan of the head has returned and does demonstrate per virtual radiology left cerebellar hypodensity suspicious for infarct. Other lesions are not excluded. Further assessment with MRI is recommend. I did personally discuss the case with the radiologist. He sees no evidence of bleed at this time. I went and reassessed the patient confirmed with him that he has had no acute change of his symptoms in the last 6 hours, he states that all of his symptoms have been consistent for the last 4-5 days. Is clearly not a TPA candidate. Cerebellar function testing demonstrated good ambulation, no signs of ataxia, and a negative Hintze exam for any suggestion of cerebellar component. With the patient's CT scan findings, his poorly controlled sugars, it is evidence of dehydration and HH NK, I feel that he would be a good candidate for inpatient admission. I discussed the case with Dr. Mcdaniel, he agrees to accept the patient. The patient will be admitted for further management, MRI and evaluation. I have extensively reviewed the treatment plan with the patient. I have addressed all patient concerns at this time. I have also discussed the plan with the admitting physician and they agree with the current assessment and plan and have agreed to assume responsibility for the patient. All parties demonstrate verbal understanding and agreement with our assessment and plan at this time. HPI General Date/Time Provider Initiated Documentation: 11/21/17 18:04. HPI Narrative: This is a 52-year-old male with a past medical history of diabetes mellitus type 2, who takes metformin and glipizide, as well as high cholesterol, and recent episode of pancreatitis for which he required admission. He presents today for evaluation of malaise. The patient states that over the last few days he has not been feeling up to his normal level of activity. He states that he has decreased energy, has been urinating frequently, and just feels general malaise. He does admit to occasional blurry vision, but denies any chest pain, shortness of breath, arm pain neck pain numbness tingling, weakness, vomiting or diarrhea. Patient states that he has been taking his diabetes medications as directed. He denies any recent traumas or other sick contacts. He has no other complaints at this time. He denies any history of stroke or myocardial infarction. He denies any calf pain leg pain swelling or tenderness. He denies any pertinent family history. He denies any recent surgeries. He denies any IV or illicit drug use. Related Data Home Medications Medication Instructions Recorded Confirmed albuterol sulfate [Ventolin HFA] 2 puff INHALATION PRN PRN #3 puff 07/01/12 11/21/17 multivitamin [Daily Multi-Vitamin] 1 ea PO DAILY 10/29/16 11/21/17 allopurinol 300 mg tablet 300 mg PO DAILY 11/06/17 11/21/17 buspirone 15 mg tablet 15 mg PO TID PRN 11/06/17 11/21/17 clonidine HCl 0.2 mg tablet 0.2 mg PO BID 11/06/17 11/21/17 glipizide ER 10 mg tablet, 10 mg PO DAILY 11/06/17 11/21/17 extended release 24 hr metformin 1,000 mg tablet 1,000 mg PO BID 11/06/17 11/21/17 tadalafil 5 mg tablet 5 mg PO ONCE PRN 11/06/17 11/21/17 amlodipine 5 mg PO DAILY 30 Days #0 tab 11/09/17 11/19/17 pantoprazole 40 mg PO DAILY@0730 30 Days #0 tab 11/09/17 11/19/17 furosemide 40 mg tablet 40 mg PO DAILY #3 tab 11/11/17 11/19/17 bupropion HCl XL 150 mg 24 hr 150 mg PO QAM #90 tab 11/19/17 11/21/17 tablet, extended release Previous Rx's Medication Instructions Recorded amlodipine 5 mg PO DAILY 30 Days #0 tab 11/09/17 pantoprazole 40 mg PO DAILY@0730 30 Days #0 tab 11/09/17 furosemide 40 mg tablet 40 mg PO DAILY #3 tab 11/11/17 bupropion HCl XL 150 mg 24 hr 150 mg PO QAM #90 tab 11/19/17 tablet, extended release Allergies Allergy/AdvReac Type Severity Reaction Status Date / Time morphine AdvReac Intermediate Narcotic Unverified 11/21/17 18:14 induced constipation General Stated Complaint: GenMedical DELMY: 3 Review of Systems Review of Systems 10 point review of systems was performed, pertinent positives and negatives are noted in the history of present illness. PFSH Family History Grandfather Myocardial infarction Mother No problems noted. Father No problems noted. Grandfather Personal history of malignant neoplasm Grandmother No problems noted. Grandmother No problems noted. 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 3.ENT: Atraumatic external nose and ears. Notably dry MM. Neck: Symmetric, trachea midline, No thyromegaly. 4.CVS: +S1/S2, No murmurs or gallops. Peripheral pulses 2+ and equal in all extremities. Brisk capillary refill in all extremities. 5.RESP: Unlabored respiratory effort. Clear to auscultation bilaterally. No wheezes rales or rhonchi 6.GI: Soft, Nontender/Nondistended, No hepatosplenomegaly. No guarding or rebound. 7.MSK: Normocephalic/Atraumatic, Extremities w/o deformity or ttp No cyanosis or clubbing, Normal movement of all extremities 8.Skin: Warm, Dry. No rashes or lesions. 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 Sensation grossly intact, no focal neurologic deficits. All 6 cardinal planes of vision or fully intact. No evidence of horizontal or vertical nystagmus. The patient demonstrated a normal ukxygh-obpt-xvvbzl, good dexterity. There was no evidence of dysdiadochokinesia. Patient was able to ambulate without difficulty. There was no wide-based gait. Romberg, and zckf-[id number] are both normal on testing. Sensation was intact bilaterally as well as muscle strength bilaterally for all extremities. Patient was able to verbalize butter cup with no slurring, or miss pronunciation. Cerebellar function testing is normal. The patient demonstrates a normal hints exam with no findings concerning for a central event. No vertical nystagmus. The head impulse test is negative for any significant central abnormality. Normal test of skew. No suggestion of a central cerebellar event. 10.Psych: (AAO) x3. Appropriate mood and affect Course Vital Signs Temperature 36.6 C 11/21/17 18:06 Pulse 94 H 11/21/17 18:06 Respiratory Rate 15 11/21/17 18:06 Blood Pressure 164/102 H 11/21/17 18:06 Pulse Oximetry 99 11/21/17 18:06 Temperature 36.6 C 11/21/17 18:06 Temperature Source Temporal Artery Scan 11/21/17 18:06 Pulse 94 H 11/21/17 18:06 Respiratory Rate 15 11/21/17 18:06 Respiratory Effort Non-Labored 11/21/17 18:12 Blood Pressure 164/102 H 11/21/17 18:06 Blood Pressure Position Supine 11/21/17 18:06 Pulse Oximetry 99 11/21/17 18:06 Oxygen Delivery Method Room Air 11/21/17 18:06 Oxygen Flow Rate 0 11/21/17 18:06
[2017-11-21 18:53] LABS: Abs Immature Grans 0.06 k/cumm (0.0-0.09); Absolute Basophil Count 0.05 k/cumm (0.0-0.2); Absolute Lymphocyte Count 2.99 k/cumm (1.2-3.4); Absolute Monocyte Count 0.94 k/cumm (0.11-0.7); Absolute Neutrophil Count 8.93 k/cumm (1.2-6.7); Basophils % 0.4; Eosinophils % 1.5; HCT 43.7 % (40.0-50.0); HGB 15.1 g/dL (13.5-17.5); Immature Grans % 0.5; Lymphocytes % 22.7; Mean Corp. HGB Concentration 34.6 g/dL (32.0-36.0); Mean Corpuscular Hemoglobin 32.9 pg (27.0-33.0); Mean Corpuscular Volume 95.2 fL (80-95); Mean Platelet Volume 10.3 fL (8.0-11.0); Monocytes % 7.1; Neutrophils % 67.8; Platelet Count 481 x1000/uL (130-400); RBC 4.59 m/cumm (4.50-6.00); RBC Distribution Width 13.3 % (11.8-14.1); White Blood Cell Count 13.17 k/cumm (4.4-10.8)
--- NOTE | 2017-11-21 18:55 | ED.GENADUL_ITS ---
Discharge Plan Disposition Patient Disposition: [facility] INPATIENT Condition: Stable Discharge Details Chief Complaint: GenMedical Clinical Impression: Stroke, Chronic hyperglycemia, Acute dehydration Primary Care Provider: Stephanie Romero ED Provider: Shahram Springer Home Meds and New Rx's Prescriptions: No Action allopurinol 300 mg tablet 300 mg PO DAILY RF: 0 buspirone 15 mg tablet 15 mg PO TID PRNRF: 0 clonidine HCl 0.2 mg tablet 0.2 mg PO BID RF: 0 glipizide 10 mg tablet extended release 24hr 10 mg PO DAILY RF: 0 metformin 1,000 mg tablet 1,000 mg PO BID RF: 0 tadalafil 5 mg tablet 5 mg PO ONCE PRNRF: 0 bupropion HCl 150 mg tablet extended release 24 hr 150 mg PO QAM Qty: 90 RF: 3 albuterol sulfate [Ventolin HFA] 8 GM HFA aerosol inhaler 2 puff Inhalation PRN PRNQty: 3 RF: 4 multivitamin [Daily Multi-Vitamin] 1 EACH tablet 1 ea PO DAILY RF: 0 furosemide 40 mg tablet 40 mg PO DAILY Qty: 3 RF: 0 amlodipine 5 mg Tablet 5 mg PO DAILY 30 Days Qty: 0 RF: 0 pantoprazole 40 mg Tablet,Delayed Release (Dr/Ec) 40 mg PO DAILY@0730 30 Days Qty: 0 RF: 0 Medical Decision Making This is a 52-year-old male with past medical history of type 2 diabetes who presents today for evaluation of malaise and fatigue over the last few days. States that he does not have normal energy that he would expect. He is noted an increase in urinary frequency, but denies any dysuria. He does not check his sugars regularly at home, but is expecting them to be high. He does admit to some very mild blurry vision, but denies any significant headache. Physical exam demonstrates no focal neurologic deficit. Bedside Accu-Chek demonstrates a glucose of 477. The patient is a type II diabetic. I feel that his symptoms most likely secondary to hyperglycemia, with secondary dehydration , leading to a clinical picture of HH NK. We will rehydrate, assess his acid base status, control his sugars, evaluate for any other potential acute process. EKG 18: 47 Rate 90, intervals normal, sinus rhythm, RSR in V1, no significant ST elevations or depressions. No Q waves. No peaking of the T waves. No other acute abnormalities 8:04 PM Patient does demonstrate hyponatremia however this is secondary to his elevated glucose. Corrected sodium is 134. We will continue to rehydrate, and reassess his sugar levels. 8:55 PM Patient's VBG is normal. No signs of acidosis. Sugars are improving. Chest x- ray is negative for any acute process per virtual radiology. Troponin, and EKG are benign. Mild leukocytosis, and increased platelets, I believe this is secondary to his notable dehydration. The patient's CT scan of the head has returned and does demonstrate per virtual radiology left cerebellar hypodensity suspicious for infarct. Other lesions are not excluded. Further assessment with MRI is recommend. I did personally discuss the case with the radiologist. He sees no evidence of bleed at this time. I went and reassessed the patient confirmed with him that he has had no acute change of his symptoms in the last 6 hours, he states that all of his symptoms have been consistent for the last 4-5 days. Is clearly not a TPA candidate. Cerebellar function testing demonstrated good ambulation, no signs of ataxia, and a negative Hintze exam for any suggestion of cerebellar component. With the patient's CT scan findings, his poorly controlled sugars, it is evidence of dehydration and HH NK , I feel that he would be a good candidate for inpatient admission. I discussed the case with Dr. Mcdaniel, he agrees to accept the patient. The patient will be admitted for further management, MRI and evaluation. I have extensively reviewed the treatment plan with the patient. I have addressed all patient concerns at this time. I have also discussed the plan with the admitting physician and they agree with the current assessment and plan and have agreed to assume responsibility for the patient. All parties demonstrate verbal understanding and agreement with our assessment and plan at this time. HPI General Date/Time Provider Initiated Documentation: 11/21/17 18:04 . HPI Narrative: This is a 52-year-old male with a past medical history of diabetes mellitus type 2, who takes metformin and glipizide, as well as high cholesterol, and recent episode of pancreatitis for which he required admission. He presents today for evaluation of malaise. The patient states that over the last few days he has not been feeling up to his normal level of activity. He states that he has decreased energy, has been urinating frequently , and just feels general malaise. He does admit to occasional blurry vision, but denies any chest pain, shortness of breath, arm pain neck pain numbness tingling, weakness, vomiting or diarrhea. Patient states that he has been taking his diabetes medications as directed. He denies any recent traumas or other sick contacts. He has no other complaints at this time. He denies any history of stroke or myocardial infarction. He denies any calf pain leg pain swelling or tenderness. He denies any pertinent family history. He denies any recent surgeries. He denies any IV or illicit drug use. Related Data Home Medications Medication Instructions Recorded Confirmed albuterol sulfate [Ventolin HFA] 2 puff INHALATION PRN PRN #3 puff 07/01/12 multivitamin [Daily Multi-Vitamin] 1 ea PO DAILY 10/29/16 11/21/17 allopurinol 300 mg tablet 300 mg PO DAILY 11/06/17 11/21/17 buspirone 15 mg tablet 15 mg PO TID PRN 11/06/17 11/21/17 clonidine HCl 0.2 mg tablet 0.2 mg PO BID 11/06/17 11/21/17 glipizide ER 10 mg tablet, 10 mg PO DAILY 11/06/17 11/21/17 extended release 24 hr metformin 1,000 mg tablet 1,000 mg PO BID 11/06/17 11/21/17 tadalafil 5 mg tablet 5 mg PO ONCE PRN 11/06/17 11/21/17 amlodipine 5 mg PO DAILY 30 Days #0 tab 11/09/17 11/19/17 pantoprazole 40 mg PO DAILY@0730 30 Days #0 tab 11/09/17 11/19/17 furosemide 40 mg tablet 40 mg PO DAILY #3 tab 11/11/17 11/19/17 bupropion HCl XL 150 mg 24 hr 150 mg PO QAM #90 tab 11/19/17 11/21/17 tablet, extended release Previous Rx's Medication Instructions Recorded amlodipine 5 mg PO DAILY 30 Days #0 tab 11/09/17 pantoprazole 40 mg PO DAILY@0730 30 Days #0 tab 11/09/17 furosemide 40 mg tablet 40 mg PO DAILY #3 tab 11/11/17 bupropion HCl XL 150 mg 24 hr 150 mg PO QAM #90 tab 11/19/17 tablet, extended release Allergies Allergy/AdvReac Type Severity Reaction Status Date / Time morphine AdvReac Intermediate Narcotic Unverified 11/21/17 18:14 induced constipation General Stated Complaint: GenMedical DELMY: 3 Review of Systems Review of Systems 10 point review of systems was performed, pertinent positives and negatives are noted in the history of present illness. PFSH Family History Grandfather Myocardial infarction Mother No problems noted. Father No problems noted. Grandfather Personal history of malignant neoplasm Grandmother No problems noted. Grandmother No problems noted. 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 3.ENT: Atraumatic external nose and ears. Notably dry MM. Neck: Symmetric, trachea midline, No thyromegaly. 4.CVS: +S1/S2, No murmurs or gallops. Peripheral pulses 2+ and equal in all extremities. Brisk capillary refill in all extremities. 5.RESP: Unlabored respiratory effort. Clear to auscultation bilaterally. No wheezes rales or rhonchi 6.GI: Soft, Nontender/Nondistended, No hepatosplenomegaly. No guarding or rebound. 7.MSK: Normocephalic/Atraumatic, Extremities w/o deformity or ttp No cyanosis or clubbing, Normal movement of all extremities 8.Skin: Warm, Dry. No rashes or lesions. 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 Sensation grossly intact, no focal neurologic deficits. All 6 cardinal planes of vision or fully intact. No evidence of horizontal or vertical nystagmus. The patient demonstrated a normal bhkwiy-kccp-lsuwen, good dexterity. There was no evidence of dysdiadochokinesia. Patient was able to ambulate without difficulty. There was no wide-based gait. Romberg, and [id number] are both normal on testing. Sensation was intact bilaterally as well as muscle strength bilaterally for all extremities. Patient was able to verbalize butter cup with no slurring, or miss pronunciation. Cerebellar function testing is normal. The patient demonstrates a normal hints exam with no findings concerning for a central event. No vertical nystagmus. The head impulse test is negative for any significant central abnormality. Normal test of skew. No suggestion of a central cerebellar event. 10.Psych: (AAO) x3. Appropriate mood and affect Course Vital Signs Temperature 36.6 C 11/21/17 18:06 Pulse 94 H 11/21/17 18:06 Respiratory Rate 15 11/21/17 18:06 Blood Pressure 164/102 H 11/21/17 18:06 Pulse Oximetry 99 11/21/17 18:06 Temperature 36.6 C 11/21/17 18:06 Temperature Source Temporal Artery Scan 11/21/17 18:06 Pulse 94 H 11/21/17 18:06 Respiratory Rate 15 11/21/17 18:06 Respiratory Effort Non-Labored 11/21/17 18:12 Blood Pressure 164/102 H 11/21/17 18:06 Blood Pressure Position Supine 11/21/17 18:06 Pulse Oximetry 99 11/21/17 18:06 Oxygen Delivery Method Room Air 11/21/17 18:06 Oxygen Flow Rate 0 11/21/17 18:06
[2017-11-21] MEDS: Insulin REGULAR-Human 100 UNITS/ML UNIT 20 UNITS SC (18:58)
[2017-11-21 19:06] LABS: ALT 39 U/L (12-78); AST 35 U/L (15-37); Albumin 3.1 g/dL (3.4-5.0); Alkaline Phosphatase 178 U/L (46-116); BUN 16 mg/dL (7-18); Bilirubin, Direct 0.33 mg/dL (0.00-0.20); Bilirubin, Total 0.8 mg/dL (0.2-1.0); CREATININE 1.09 mg/dL (0.70-1.30); Calcium 10.1 mg/dL (8.5-10.1); Chloride 87 mmol/L (98-107); Glucose 476 mg/dL (70-100); Lipase 248 U/L (73-393); Magnesium 1.7 mg/dL (1.8-2.4); Potassium 4.3 mmol/L (3.5-5.1); Sodium 125 mmol/L (136-145); Total Protein 8.6 g/dL (6.4-8.2)
[2017-11-21 19:10] LABS: Troponin I < 0.02 ng/mL (0.00-0.06)
[2017-11-21 19:15] LABS: TSH 2.55 uIU/mL (0.358-3.74)
--- NOTE | 2017-11-21 19:30 | DI.COMBO_ITS ---
SYMPTOM/DIAGNOSIS: GENERALIZED WEAKNESS, BLURRY VISION, ? ACUTE CVA NONCONTRAST HEAD CT: No priors. There is an area of decreased attenuation seen within the left cerebellar hemisphere. There is otherwise normal beckett white matter differentiation. The ventricles are intact. The basilar cisterns are patent. No acute intracranial hemorrhage, midline shift or mass effect is identified. The visualized paranasal sinuses are clear. The mastoid air cells are well pneumatized. The calvarium is intact. IMPRESSION: Area of decreased attenuation in the left cerebellar hemisphere. This may represent an acute infarct. Neoplasm or artifact cannot be excluded. Further evaluation with an MRI should be considered. PA AND LATERAL CHEST: Comparison is made with 07/31/15. The heart is normal in size. The lungs are clear. The mediastinal structures and pleura appear intact. CONCLUSION: Normal chest.
[2017-11-21 19:39] LABS: Bilirubin Small (Negative); Blood Negative (Negative); Clarity Clear; Glucose 500 mg/dL (Negative); Ketones >=160 mg/dL (Negative); Leukocyte Esterase Negative (Negative); Nitrite Negative (Negative); Urobilinogen 0.2 EU/dL (Up TO 0.2)
[2017-11-21] MEDS: Normal Saline Flush 10 ML SYR IVP (19:50)
--- NOTE | 2017-11-21 20:17 | DI.VRAD_ITS ---
EXAM: CT Head Without Intravenous Contrast CLINICAL HISTORY: 52 years old, male; Signs and symptoms; Visual disturbance; Patient HX: Blurry vision; Additional info: R/O acute CVA TECHNIQUE: Axial computed tomography images of the head/brain without intravenous contrast. Coronal and sagittal reformatted images were created and reviewed. COMPARISON: No relevant prior studies available. FINDINGS: Limitations: Suboptimal evaluation of the posterior cranial fossa secondary to beam hardening artifact. Brain: Area of decreased attenuation measuring 24 mm AP by 20 mm transverse within the left cerebellar hemisphere (axial images 9 through 12). Differential diagnosis includes cerebellar infarct as well as other lesions including neoplasm. Decreased attenuation secondary to artifact is not completely excluded. Further evaluation with MRI is recommended. No acute stroke identified within the right or left cerebral hemispheres. No intracranial hemorrhage. Ventricles: Unremarkable. No ventriculomegaly. Bones/joints: Unremarkable. Soft tissues: Unremarkable. Sinuses: Unremarkable as visualized. No acute sinusitis. Mastoid air cells: Unremarkable as visualized. No mastoid effusion. IMPRESSION: Left cerebellar hypodensity suspicious for infarct. Other lesions are not excluded. Further assessment with MRI is recommended. Dictated and Authenticated by: Chang Muir MD. Ordering:KAY ARGUELLO MD
--- NOTE | 2017-11-21 20:18 | DI.VRAD_ITS ---
EXAM: XR Chest, 2 Views CLINICAL HISTORY: 52 years old, male; Signs and symptoms; Other: Generalized weakness; Additional info: R/O acute CVA TECHNIQUE: Frontal and lateral views of the chest. COMPARISON: CR CHEST 2 VIEWS PA,LAT 07/31/2015 4:46 AM FINDINGS: Lungs: Unremarkable. No consolidation. Pleural space: Unremarkable. No pneumothorax. Heart: Unremarkable. No cardiomegaly. Mediastinum: Unremarkable. Bones/joints: Unremarkable. IMPRESSION: No acute findings. Dictated and Authenticated by: Chang Muir MD. Ordering:KAY ARGUELLO MD
[2017-11-21 20:41] LABS: HCO3 (Venous) 19 mmol/L (22-28); O2 Sat (Venous) 80 % (70-80); TCO2 (Venous) 17 mmol/L (22-29); pCO2 (Venous) 36 mm/Hg (34-47); pH (Venous) 7.32 (7.32-7.43); pO2 (Venous) 47 mm/Hg (28-44)
[2017-11-21] MEDS: Acetaminophen 500 MG TAB 1000 MG PO (20:45)
--- NOTE | 2017-11-21 23:13 | HPE_ITS ---
Date of service: 11/21/17 Time of Service: 23:13 Assessment and Plan (1) Cerebellar lesion: Start date: 11/21/17 Start time: 21:30 Current visit: Yes Status: Acute This there is an almost coincidental finding and is emergency room evaluation for uncontrolled diabetes and dehydration which was responded to IV fluid boluses in the emergency room. He is not having any focal neurological complaints but needs an MRI for follow-up. His neurological exam is not suggesting acute cerebellar dysfunction but does have generalized malaise. (2) Uncontrolled type 2 diabetes mellitus with complication, without long-term current use of insulin: Current visit: Yes Status: Chronic Patient appears to not be responding to oral treatment as as in the past and may need to be converted to insulin therapy. During this hospital stay he should be evaluated for a basal insulin along with his oral treatment as an outpatient and possibly intermittent short acting insulin for mealtime coverage. Will initiate lisinopril low-dose because of his hypertension recently and not being on amlodipine. He does not appear to have a past history of side effects to SHELDON inhibitor treatment and he is diabetic. I will also start him on Lipitor for hyperlipidemia with a possible cerebrovascular event with this hospitalization. (3) Acute dehydration: Start date: 11/21/17 Current visit: Yes Status: Acute This is associated with his hypoglycemia patient now had received 2 liters of IV fluids. This will continue with a slower rate with magnesium supplement because of hypomagnesemia and with advancing oral diet. Follow-up on labs in the morning. History of Present Illness Chief Complaint: Fatigue and malaise with slight abdominal discomfort for 1 week. Narrative: This is a 52-year-old gentleman who was recently hospitalized for pancreatitis most likely secondary to alcohol binging. He has been going through more stress with his mother having brain surgery for an aneurysm and his father having severe Parkinson's disease. He has had pancreatitis in the past also from alcohol binging. He is a non-smoker and has no previous history of stroke or heart disease. He came into the hospital for evaluation because of continued malaise and had no complaints of dizziness or unsteadiness with no focal neurological complaints. He also was found to have hyperglycemia with uncontrolled diabetes which has been a problem in the past only on oral hypoglycemic and Metformin for treatment of his diabetes. He was having increased urination and this could have been contributing to this malaise. In the emergency room after evaluation of his hypoglycemia because of his malaise change in mental status, CT scan of the head was performed. This did reveal a hypodensity in his left cerebellum which could represent a stroke but needed further investigations. Patient has been more depressed recently and off alcohol but prescribed medications for anxiety and depression with Wellbutrin recently started and seemed to help his mood. Was prescribed occasion for hypertension and did not start his amlodipine. He is on clonidine currently for blood pressure elevation. He does not have any allergies and does not appear he has been on treatment with an SHELDON inhibitor because of his diabetes or Lipitor with a history of hyperlipidemia in the past. He is a never smoker but did chew tobacco in the past. Review of Systems Review of Systems As per HPI otherwise unrevealing. Patient is more depressed recently and has not drunk alcohol since his discharge with some response to his new antidepressant. He denies any nausea vomiting and is not having significant abdominal pain today. He has no respiratory complaints and no complaints. [facility] Family History Grandfather Myocardial infarction Mother No problems noted. Father No problems noted. Grandfather Personal history of malignant neoplasm Grandmother No problems noted. Grandmother No problems noted. 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 [employer] Smoking/Tobacco Use Status: Former Tobacco Use alcohol intake: current alcohol intake frequency: a few times a week Surgical History Arthroplasty of knee (~05/2004) Meds Home Medications Medication Instructions Recorded Confirmed Type albuterol sulfate [Ventolin HFA] 2 puff INHALATION PRN PRN #3 puff 07/01/12 History multivitamin [Daily Multi-Vitamin] 1 ea PO DAILY 10/29/16 11/21/17 History allopurinol 300 mg tablet 300 mg PO DAILY 11/06/17 11/21/17 History buspirone 15 mg tablet 15 mg PO TID PRN 11/06/17 11/21/17 History clonidine HCl 0.2 mg tablet 0.2 mg PO BID 11/06/17 11/21/17 History glipizide ER 10 mg tablet, 10 mg PO DAILY 11/06/17 11/21/17 History extended release 24 hr metformin 1,000 mg tablet 1,000 mg PO BID 11/06/17 11/21/17 History tadalafil 5 mg tablet 5 mg PO ONCE PRN 11/06/17 11/21/17 History amlodipine 5 mg PO DAILY 30 Days #0 tab 11/09/17 11/19/17 Rx pantoprazole 40 mg PO DAILY@0730 30 Days #0 tab 11/09/17 11/19/17 Rx furosemide 40 mg tablet 40 mg PO DAILY #3 tab 11/11/17 11/19/17 Rx bupropion HCl XL 150 mg 24 hr 150 mg PO QAM #90 tab 11/19/17 11/21/17 Rx tablet, extended release Allergies Allergy/AdvReac Type Severity Reaction Status Date / Time morphine AdvReac Intermediate Narcotic Unverified 11/21/17 18:14 induced constipation Exam Narrative Exam Narrative: Vital signs blood pressure 120/81, pulse 90 and regular, respirations 18 non-labored, temperature 37.2 and pulse oximetry 100% on room air. Weight was 115 kg. Const General: cooperative, comfortable, well groomed, anxious and ill appearing ( Patient appears slightly pale, flattened affect with fair eye contact. He does have some speech hesitancy.) acutely Nutritional Appearance: overweight [facility] Head: normocephalic Ears: hearing grossly normal bilaterally and external ears normal General nose exam: external nose normal Face and sinus: normal facial exam and face symmetric Mouth: oral mucosae normal and oropharynx normal Teeth and gingiva: dentition normal and gingiva normal Throat: posterior oropharynx normal Eyes General: appearance normal, both eyes and all related structures Pupils: PERRL and accommodation normal EOM: EOM intact bilaterally Neck Neck: normal visual inspection, full ROM, no lymphadenopathy and supple Thyroid: thyroid normal Chest Chest: normal inspection of the chest Resp Effort & Inspection: normal respiratory effort and able to speak in complete sentences Auscultation: clear to auscultation bilaterally Percussion: percussion normal Cardio Jugular venous pressure: no JVD Palpation: normal PMI Rate: regular rate Rhythm: regular rhythm Heart Sounds: S1 normal and S2 normal GI Inspection: normal to inspection Palpation: soft, no hepatosplenomegaly and tender in the epigastrum Percussion: normal to percussion Auscultation: normal bowel sounds Male General Exam: Yes normal external exam Back/Spine/Pelvis Back: no CVA tenderness Cervical Spine: cervical ROM normal Thoracic/Lumbar Spine: thoracic and lumbar spine normal to inspection Skin General skin exam: no rashes or lesions noted and dry skin Lesions: no lesions Rashes: no rashes Nails: normal Neuro General: alert, awake, oriented x3, moves all extremities, no focal motor deficits, CN's II-XI intact bilaterally and normal sensation to monofilament Speech: speech normal (With some hesitancy in his speech with more like that seen in a person with depression and flattened affect) Gait: normal gait Motor: muscle tone normal throughout and strength 5/5 throughout Sensory Exam: no sensory deficits noted Extrem General: normal to inspection, full ROM and no clubbing, cyanosis or edema Psych Speech and Movement: delayed speech and slowed movement Mood: dysthymic mood Affect: sad Thought Content: normal Insight: fair Judgment: poor Other: Patient has poor judgment and medical care and with binging of alcohol appeared to have decreased insight into the arms with this with his diabetes and recurrent pancreatitis. Results Labs : 11/21/17 15:40 11/21/17 15:40 Laboratory Results - last 24 hr 11/21/17 11/21/17 11/21/17 15:40 15:40 15:40 WBC 13.17 H RBC 4.59 Hgb 15.1 Hct 43.7 MCV 95.2 H MCH 32.9 MCHC 34.6 RDW 13.3 Plt Count 481 H D MPV 10.3 Immature Gran % 0.5 Neutrophils % 67.8 Lymphocytes % 22.7 Monocytes % 7.1 Eosinophils % 1.5 Basophils % 0.4 Absolute Neutrophils 8.93 H Absolute Lymphocytes 2.99 Absolute Monocytes 0.94 H Absolute Eosinophils 0.20 Absolute Basophils 0.05 VBG pH VBG pCO2 VBG pO2 VBG HCO3 VBG Total CO2 VBG O2 Saturation VBG Base Excess Sodium 125 L Potassium 4.3 Chloride 87 L Carbon Dioxide 18.0 L Anion Gap 20.0 H BUN 16 Creatinine 1.09 Estimated GFR/1.73 m2 >= 60.00 Glucose 476 H Calcium 10.1 Magnesium 1.7 L Total Bilirubin 0.8 Conjugated Bilirubin 0.33 H AST 35 ALT 39 Alkaline Phosphatase 178 H Troponin I < 0.02 Total Protein 8.6 H Albumin 3.1 L Lipase 248 TSH 2.55 Urine Color Urine Clarity Urine pH Ur Specific [place] Urine Protein Urine Ketones Urine Blood Urine Nitrite Urine Bilirubin Urine Urobilinogen Ur Leukocyte Esterase Urine Glucose 11/21/17 11/21/17 19:34 20:29 WBC RBC Hgb Hct MCV MCH MCHC RDW Plt Count MPV Immature Gran % Neutrophils % Lymphocytes % Monocytes % Eosinophils % Basophils % Absolute Neutrophils Absolute Lymphocytes Absolute Monocytes Absolute Eosinophils Absolute Basophils VBG pH 7.32 VBG pCO2 36 VBG pO2 47 H VBG HCO3 19 L VBG Total CO2 17 L VBG O2 Saturation 80 VBG Base Excess Sodium Potassium Chloride Carbon Dioxide Anion Gap BUN Creatinine Estimated GFR/1.73 m2 Glucose Calcium Magnesium Total Bilirubin Conjugated Bilirubin AST ALT Alkaline Phosphatase Troponin I Total Protein Albumin Lipase TSH Urine Color Yellow Urine Clarity Clear Urine pH 5.0 Ur Specific [place] 1.020 Urine Protein Negative Urine Ketones >=160 Urine Blood Negative Urine Nitrite Negative Urine Bilirubin Small H Urine Urobilinogen 0.2 Ur Leukocyte Esterase Negative Urine Glucose 500 H
[2017-11-22] VITALS (13 sets, daily range): BP systolic 106–154; BP diastolic 70–100; PULSE 71–166; RESP 16–20; TEMP 35.7–36.6; O2SAT 98–100
[2017-11-22] MEDS: Pantoprazole 40 MG VIAL IVP (00:26)
[2017-11-22] MEDS: Normal Saline Flush 10 ML SYR IVP (00:26)
[2017-11-22] MEDS: Heparin 5,000 UNITS/ML VIAL 5000 UNITS SC ×2 (00:32→08:17)
[2017-11-22] MEDS: Normal Saline 500 ML 100 ML IV (00:39)
[2017-11-22] MEDS: MAGNESIUM SULFATE 2 GM/50 ML BAG IVPB (00:40)
[2017-11-22 07:19] LABS: Carboxyhemoglobin 2.1 %
[2017-11-22 07:21] LABS: HCT 40.3 % (40.0-50.0); HGB 13.4 g/dL (13.5-17.5); Mean Corp. HGB Concentration 33.3 g/dL (32.0-36.0); Mean Corpuscular Hemoglobin 32.6 pg (27.0-33.0); Mean Corpuscular Volume 98.1 fL (80-95); Mean Platelet Volume 10.4 fL (8.0-11.0); Platelet Count 388 x1000/uL (130-400); RBC 4.11 m/cumm (4.50-6.00); RBC Distribution Width 13.2 % (11.8-14.1); White Blood Cell Count 8.76 k/cumm (4.4-10.8)
[2017-11-22 07:37] LABS: ALT 33 U/L (12-78); AST 41 U/L (15-37); Albumin 2.7 g/dL (3.4-5.0); Alkaline Phosphatase 151 U/L (46-116); Anion Gap 18.7 mmol/L (3-11); BUN 11 mg/dL (7-18); Bilirubin, Total 0.7 mg/dL (0.2-1.0); CO2 19.3 mmol/L (21.0-32.0); CREATININE 0.98 mg/dL (0.70-1.30); Calcium 8.9 mg/dL (8.5-10.1); Chloride 93 mmol/L (98-107); Glucose 353 mg/dL (70-100); Potassium 3.9 mmol/L (3.5-5.1); Sodium 131 mmol/L (136-145); Total Protein 7.5 g/dL (6.4-8.2)
[2017-11-22 08:15] LABS: Cholesterol 155 mg/dL (50-200); HDL Cholesterol 57 mg/dL (40-60); LDL CHOLESTEROL 76 mg/dL (<100); TSH (W/Ref FT4) 2.49 uIU/mL (0.358-3.74); Triglyceride 161 mg/dL (30-150)
[2017-11-22] MEDS: buPROPion-XL 150 MG TABCR PO (08:16)
[2017-11-22] MEDS: Atorvastatin 20 MG TAB PO (08:16)
[2017-11-22] MEDS: cloNIDine 0.1 MG TAB 0.2 MG PO ×2 (08:16→19:23)
[2017-11-22] MEDS: Lisinopril 5 MG TAB PO (08:16)
[2017-11-22] MEDS: Allopurinol 300 MG TAB PO (08:17)
[2017-11-22] MEDS: Insulin Aspart 300 UNITS/3 ML PEN SC ×3 (08:28→17:04)
[2017-11-22 08:34] LABS: Troponin I < 0.02 ng/mL (0.00-0.06)
--- NOTE | 2017-11-22 09:07 | NUR.NOTE ---
Patients heart rate in 130's-150's. Doctor aware and EKG taken. Pt is resting in chair. Denies shortness of breath or dizziness. WIll continue to monitor. Nursing Note:
[2017-11-22] MEDS: Normal Saline 1,000 ML 125 ML IV ×2 (09:21→17:03)
[2017-11-22] MEDS: Acetaminophen 500 MG TAB 1000 MG PO ×2 (10:02→19:00)
[2017-11-22] MEDS: Polyethylene Glycol 3350 17 GM PACKET PO (10:03)
[2017-11-22] MEDS: Metoprolol 25 MG TAB PO ×2 (10:08→22:16)
--- NOTE | 2017-11-22 10:21 | PHARADMIT ---
Addendum entered by Michael Vaca III 11/23/17 15:51: Pharmacy Note Subjective CT scan confirmed brain lesions (stroke), Has new onset A-Fib (on beta-delio) Provider note patient improving a little Objective VS-OK Na-131 K+4.1 SCr- 0.87 WBC-7.61 H&H,Plts-OK FSBS-426 BM today Assessment On Apixaban, Heparin dc'd Glipizide DC'd, On Aspart, Glargine. Plan Hyperglycemia and A-fib of concern presently. Original Note: Addendum entered by Michael Vaca III 11/23/17 15:50: Pharmacy Note Subjective Objective Assessment Plan Original Note: Admission Pharmacy Clinical Review stroke Code Status Full Code Current Weight 115.05 kg Renally Cleared and Narrow Therapeutic Index Meds Crcl ~103.00 mL/min current meds okay QTc Value / Action Taken BP Control, Fever BP 130/94 afebrile Electrolytes reviewed Na 131 Cl 93 DVT Prophylaxis heparin Opiate Usage / Scheduled Bowel Regimen Ordered no/prn Plt/SCr for Heparin / Enoxaparin plt 388 SCr 0.98 INR for Warfarin n/a H/H stable, WBC/Bands h/h 13.4/40.3 wbc 8.76 Antibiotic appropriateness none Cultures and Sensitivities n/a Surgical ABX d/c within 24 hr n/a DM control / Insulin Dosing BG 353 sliding scale aspart Heart Failure (Check EF%) (SHELDON's, B-Block, Diuretics) lisinopril, metoprolol, furosemide (home med), amlodipine (home med) IV to PO Switch n/a Home Meds Reviewed yes Home Meds Not Ordered albuterol (PRN), amlodipine, furosemide, glipizide, metformin, multivitamin, tadalafil (PRN) Comments
--- NOTE | 2017-11-22 13:49 | PDOC.CMIN ---
- If Service Date Differs Date of service: 11/22/17 Time of Service: 13:49 Care Management Initial Assess REASON FOR HOSPITALIZATION:: Stroke PAST MEDICAL HISTORY/PAST SURGICAL HISTORY:: Pancreatic pseudocyst (Acute). Acute pancreatitis (Acute 12/19/13). Diabetes mellitus (Chronic). Depression (Chronic). Hypertension (Chronic). Hyperlipidemia (Chronic). Alcohol intake above recommended sensible limits (Chronic). BMI 36.0-36.9,adult (Chronic). Erectile dysfunction (Chronic). History of tobacco use (Chronic). 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 Dino states that he has family and friends locally whom are supportive. He is independent at baseline, drives, and manages [employer]'s. CURRENT FUNCTIONAL STATUS:: Dino is lying in bed this morning, pleasant and receptive to discussion. ADVANCE DIRECTIVES:: None on file Has patient been provided with information about the portal?: Yes Did the patient sign up for the portal?: No CODE STATUS:: Full Code INSURANCE COVERAGE / FINANCIAL ISSUES:: [employer]BS CURRENT HOME/COMMUNITY SERVICES/EQUIPMENT:: Currently Dino has no services or medical equipment in the community. PRIMARY CARE PHYSICIAN:: Dr. Romero POTENTIAL DISCHARGE NEEDS:: F/U appointment with PCP PATIENT/FAMILY EDUCATION NEEDS:: Review DC instructions, any limitations, and ongoing DC planning discussion. Review Ask Me Three ANTICIPATED BARRIERS TO DISCHARGE:: None identified at this time. TRANSPORTATION:: Via private vehicle PLAN:: Dino will return home with no anticipated services once medically cleared. He will F/U with PCP and plan of care as prescribed. Readmission - Within the Past 30 Days Yes or No: Y - Date of First Admission Date of 1st Admission: 11/04/17 - Date of this Admission Date of Admission: 11/21/17 This admission was: Through ED - Office Visit Since 1st Admission Have you seen your PCP in the office since discharge?: Yes Date of PCP Appointment: 11/19/17 - Speicalist Appointments Have you seen any other specialist since your 1st Admission?: No - I. Interview patient and/or Family Difficulty reaching your doctor or getting an office appt?: No Have you had trouble purchasing/ or taking medication?: No Have you had trouble with getting meals at home?: No Did you feel ready for discharge when you left the last time: Yes Did you call your physician beore you came to the ED?: No How do you think you became sick enough to come back?: New problem - Stroke. Past admission was for Pancreatitis - If the patient had a VNA ordered Did the patient have a VNA order?: No - ED visits How many ED visits in the past 12 months: 2 - Assessment for Readmission Summary of readmission circumstances, based upon interviews: Dino had a f/u with his PCP on 11/19 after his previous admission. He presented to the ER for stroke signs/symptoms. He is currently on telemetry being monitored. Previous admission was for pancreatitis.
--- NOTE | 2017-11-22 15:27 | W.PM.PROGNOT ---
Date of service: 11/22/17 Time of Service: 15:28 Assessment and Plan (1) Cerebellar lesion: Current visit: Yes Status: Acute Incidental finding of a cerebellar lesion concerning for CVA. Patient without any focal neurological complaints, not complaining of any dizziness or ataxia other than occasional upon standing. Will check an MRI brain when able to confirm a stroke, and if so may be on basis of newly diagnosed Afib. (2) Atrial fibrillation: Current visit: Yes Status: Chronic Initial EKG with possible Afib vs. Multifocal Atrial Tachycardia - However, upon slowing the initial telemetry read appears to be Afib. Also with evidence of potential CVA by CT Head. Check ECHO, MRI brain as above. Initiate BB therapy, and given potential CVA will initiate AC with Apixaban as well. Maintain on telemetry. Patient spontaneously converted to sinus rhythm shortly after initial bout of Afib. (3) Essential hypertension: Current visit: No Status: Chronic Currently on SHELDON-I and Clonidine. Initiated BB due to newly diagnosed Afib. Monitor blood pressure. (4) Depressive disorder: Current visit: No Status: Deleted Continue home regimen of Wellbutrin and Buspar. (5) Diabetes mellitus: Current visit: No Status: Chronic Currently on ISS and ADA diet. Monitor blood sugars. Continue IVFs. Holding metformin - will restart Glipizide. (6) Alcohol intake above recommended sensible limits: Current visit: No Status: Chronic (7) DVT prophylaxis: Current visit: No Status: Inactive Continue heparin SC. Subjective Interval history since last seen: 52 year old man with a PMHx significant for Binge type alcohol drinking behavior, uncontrolled DM, and recent admission for pancreatitis presents to [facility] Emergency Room with complaints of Fatigue and malaise. Mr. Guillermo presented to the hospital for evaluation of continued and ongoing malaise. He also was found to have hyperglycemia and appeared dehydrated. Secondary to the overall malaise and mild change in mental status, CT scan of the head was performed and showed a hypodensity in his left cerebellum which could represent a stroke but needed further investigations. He has had no history of CVA or heart disease in the past. Shortly after admission the patient was noted to become tachycardic, and an EKG was obtained showing either Afib or a multifocal atrial tachycardia. However, following deliberating slowing of the rhythm on telemetry there appeared to be clear evidence of Afib. Since that time the patient spontaneously converted back to sinus. No other events reported. Mr. Guillermo appears afebrile. Exam Narrative Exam Narrative: General: Patient appears comfortable, AAOX3, NAD Neck: Supple CV: Regular, nontachycardic, S1S2, No rubs, murmurs, or gallops. Pulmonary: Clear to auscultation bilaterally, no crackles, wheezing, or rhonchi Abdomen: + Bowel Sounds, soft, nontender, nondistended Vascular: No lower extremity edema Neurologic: CN II-XII grossly intact. No focal deficits. Patient moving all 4 extremities. Psych: Normal mood and affect. Objective Objective Clinical Data: Abnormal lab results 11/21/17 11/21/17 11/21/17 Range/Units 15:40 15:40 19:34 WBC 13.17 H (4.4-10.8) k/cumm RBC (4.50-6.00) m/cumm Hgb (13.5-17.5) g/dL MCV 95.2 H (80-95) fL Plt Count 481 H D (130-400) x1000/uL Absolute Neutrophils 8.93 H (1.2-6.7) k/cumm Absolute Monocytes 0.94 H (0.11-0.7) k/cumm VBG pO2 (28-44) mm/Hg VBG HCO3 (22-28) mmol/L VBG Total CO2 (22-29) mmol/L Sodium 125 L (136-145) mmol/L Chloride 87 L (98-107) mmol/L Carbon Dioxide 18.0 L (21.0-32.0) mmol/L Anion Gap 20.0 H (3-11) mmol/L Glucose 476 H (70-100) mg/dL Magnesium 1.7 L (1.8-2.4) mg/dL Conjugated Bilirubin 0.33 H (0.00-0.20) mg/dL AST (15-37) U/L Alkaline Phosphatase 178 H (46-116) U/L Total Protein 8.6 H (6.4-8.2) g/dL Albumin 3.1 L (3.4-5.0) g/dL Triglycerides (30-150) mg/dL Urine Bilirubin Small H (Negative) Urine Glucose 500 H (Negative) mg/dL 11/21/17 11/22/17 11/22/17 Range/Units 20:29 07:05 07:05 WBC (4.4-10.8) k/cumm RBC 4.11 L (4.50-6.00) m/cumm Hgb 13.4 L (13.5-17.5) g/dL MCV 98.1 H (80-95) fL Plt Count (130-400) x1000/uL Absolute Neutrophils (1.2-6.7) k/cumm Absolute Monocytes (0.11-0.7) k/cumm VBG pO2 47 H (28-44) mm/Hg VBG HCO3 19 L (22-28) mmol/L VBG Total CO2 17 L (22-29) mmol/L Sodium 131 L (136-145) mmol/L Chloride 93 L (98-107) mmol/L Carbon Dioxide 19.3 L (21.0-32.0) mmol/L Anion Gap 18.7 H (3-11) mmol/L Glucose 353 H D (70-100) mg/dL Magnesium (1.8-2.4) mg/dL Conjugated Bilirubin (0.00-0.20) mg/dL AST 41 H (15-37) U/L Alkaline Phosphatase 151 H (46-116) U/L Total Protein (6.4-8.2) g/dL Albumin 2.7 L (3.4-5.0) g/dL Triglycerides (30-150) mg/dL Urine Bilirubin (Negative) Urine Glucose (Negative) mg/dL 11/22/17 Range/Units 07:05 WBC (4.4-10.8) k/cumm RBC (4.50-6.00) m/cumm Hgb (13.5-17.5) g/dL MCV (80-95) fL Plt Count (130-400) x1000/uL Absolute Neutrophils (1.2-6.7) k/cumm Absolute Monocytes (0.11-0.7) k/cumm VBG pO2 (28-44) mm/Hg VBG HCO3 (22-28) mmol/L VBG Total CO2 (22-29) mmol/L Sodium (136-145) mmol/L Chloride (98-107) mmol/L Carbon Dioxide (21.0-32.0) mmol/L Anion Gap (3-11) mmol/L Glucose (70-100) mg/dL Magnesium (1.8-2.4) mg/dL Conjugated Bilirubin (0.00-0.20) mg/dL AST (15-37) U/L Alkaline Phosphatase (46-116) U/L Total Protein (6.4-8.2) g/dL Albumin (3.4-5.0) g/dL Triglycerides 161 H (30-150) mg/dL Urine Bilirubin (Negative) Urine Glucose (Negative) mg/dL Vital Signs Temperature 35.7 C L 11/22/17 08:35 Temperature Source Tympanic 11/22/17 08:35 Pulse 118 H 11/22/17 09:16 Pulse Rhythm Regular 11/22/17 09:11 Pulse 90 11/21/17 21:46 Respiratory Rate 20 11/22/17 08:35 Respiratory Effort 11/22/17 09:11 Respiratory Depth Normal 11/22/17 09:11 Respiratory Pattern Normal 11/22/17 09:11 Blood Pressure 130/94 H 11/22/17 09:16 Blood Pressure Mean 99 11/21/17 21:46 Blood Pressure Position Supine 11/21/17 18:06 Pulse Oximetry 99 11/22/17 08:35 Oxygen Delivery Method Room Air 11/22/17 08:35 Oxygen Flow Rate 0 11/22/17 08:35 Pain Level 2 11/22/17 11:02 Comment 11/22/17 08:41 Intake & Output 11/21/17 11/22/17 11/22/17 23:59 11:59 23:59 Intake Total 725 / 725 480 / 480 Output Total 250 / 250 Balance 475 / 475 480 / 480 Weight 115 kg 115.05 kg Intake: IV 115 / 115 Oral 610 / 610 480 / 480 Output: Urine 250 / 250 Other: Urine Color Light Dania Urine Appearance Clear Urine Odor None Voiding Methods Urinal Laboratory Results WBC 8.76 k/cumm (4.4-10.8) D 11/22/17 07:05 RBC 4.11 m/cumm (4.50-6.00) L 11/22/17 07:05 Hgb 13.4 g/dL (13.5-17.5) L 11/22/17 07:05 Hct 40.3 % (40.0-50.0) 11/22/17 07:05 MCV 98.1 fL (80-95) H 11/22/17 07:05 MCH 32.6 pg (27.0-33.0) 11/22/17 07:05 MCHC 33.3 g/dL (32.0-36.0) 11/22/17 07:05 RDW 13.2 % (11.8-14.1) 11/22/17 07:05 Plt Count 388 x1000/uL (130-400) 11/22/17 07:05 MPV 10.4 fL (8.0-11.0) 11/22/17 07:05 Immature Gran % 0.5 11/21/17 15:40 Neutrophils % 67.8 11/21/17 15:40 Lymphocytes % 22.7 11/21/17 15:40 Monocytes % 7.1 11/21/17 15:40 Eosinophils % 1.5 11/21/17 15:40 Basophils % 0.4 11/21/17 15:40 Absolute Neutrophils 8.93 k/cumm (1.2-6.7) H 11/21/17 15:40 Absolute Lymphocytes 2.99 k/cumm (1.2-3.4) 11/21/17 15:40 Absolute Monocytes 0.94 k/cumm (0.11-0.7) H 11/21/17 15:40 Absolute Eosinophils 0.20 k/cumm (0.0-0.7) 11/21/17 15:40 Absolute Basophils 0.05 k/cumm (0.0-0.2) 11/21/17 15:40 VBG pH 7.32 (7.32-7.43) 11/21/17 20:29 VBG pCO2 36 mm/Hg (34-47) 11/21/17 20:29 VBG pO2 47 mm/Hg (28-44) H 11/21/17 20:29 VBG HCO3 19 mmol/L (22-28) L 11/21/17 20:29 VBG Total CO2 17 mmol/L (22-29) L 11/21/17 20:29 VBG O2 Saturation 80 % (70-80) 11/21/17 20:29 VBG Base Excess mmol/L (-3-3) 11/21/17 20:29 Carboxyhemoglobin % 2.1 % 11/22/17 07:05 Sodium 131 mmol/L (136-145) L 11/22/17 07:05 Potassium 3.9 mmol/L (3.5-5.1) 11/22/17 07:05 Chloride 93 mmol/L (98-107) L 11/22/17 07:05 Carbon Dioxide 19.3 mmol/L (21.0-32.0) L 11/22/17 07:05 Anion Gap 18.7 mmol/L (3-11) H 11/22/17 07:05 BUN 11 mg/dL (7-18) 11/22/17 07:05 Creatinine 0.98 mg/dL (0.70-1.30) 11/22/17 07:05 Estimated GFR/1.73 m2 >= 60.00 (mL/min/1.73m2) 11/22/17 07:05 Glucose 353 mg/dL (70-100) H D 11/22/17 07:05 Calcium 8.9 mg/dL (8.5-10.1) 11/22/17 07:05 Magnesium 1.7 mg/dL (1.8-2.4) L 11/21/17 15:40 Total Bilirubin 0.7 mg/dL (0.2-1.0) 11/22/17 07:05 Conjugated Bilirubin 0.33 mg/dL (0.00-0.20) H 11/21/17 15:40 AST 41 U/L (15-37) H 11/22/17 07:05 ALT 33 U/L (12-78) 11/22/17 07:05 Alkaline Phosphatase 151 U/L (46-116) H 11/22/17 07:05 Troponin I < 0.02 ng/mL (0.00-0.06) 11/22/17 07:05 Total Protein 7.5 g/dL (6.4-8.2) 11/22/17 07:05 Albumin 2.7 g/dL (3.4-5.0) L 11/22/17 07:05 Triglycerides 161 mg/dL (30-150) H 11/22/17 07:05 Total Cholesterol 155 mg/dL (50-200) 11/22/17 07:05 LDL Cholesterol Direct 76 mg/dL (<100) 11/22/17 07:05 HDL Cholesterol 57 mg/dL (40-60) 11/22/17 07:05 Lipase 248 U/L (73-393) 11/21/17 15:40 TSH 2.49 uIU/mL (0.358-3.74) 11/22/17 07:05 Urine Color Yellow (Yellow) 11/21/17 19:34 Urine Clarity Clear 11/21/17 19:34 Urine pH 5.0 (5-8) 11/21/17 19:34 Ur Specific [place] 1.020 (1.005-1.025) 11/21/17 19:34 Urine Protein Negative mg/dL (Negative) 11/21/17 19:34 Urine Ketones >=160 mg/dL (Negative) 11/21/17 19:34 Urine Blood Negative (Negative) 11/21/17 19:34 Urine Nitrite Negative (Negative) 11/21/17 19:34 Urine Bilirubin Small (Negative) H 11/21/17 19:34 Urine Urobilinogen 0.2 EU/dL (Up TO 0.2) 11/21/17 19:34 Ur Leukocyte Esterase Negative (Negative) 11/21/17 19:34 Urine Glucose 500 mg/dL (Negative) H 11/21/17 19:34 Objective Narrative Objective Narrative: NONCONTRAST HEAD CT: No priors. There is an area of decreased attenuation seen within the left cerebellar hemisphere. There is otherwise normal beckett white matter differentiation. The ventricles are intact. The basilar cisterns are patent. No acute intracranial hemorrhage, midline shift or mass effect is identified. The visualized paranasal sinuses are clear. The mastoid air cells are well pneumatized. The calvarium is intact. IMPRESSION: Area of decreased attenuation in the left cerebellar hemisphere. This may represent an acute infarct. Neoplasm or artifact cannot be excluded. Further evaluation with an MRI should be considered. PA AND LATERAL CHEST: Comparison is made with 07/31/15. The heart is normal in size. The lungs are clear. The mediastinal structures and pleura appear intact. CONCLUSION: Normal chest.
[2017-11-22 16:21] LABS: Troponin I < 0.02 ng/mL (0.00-0.06)
[2017-11-22] MEDS: glipiZIDE 5 MG TAB PO (16:46)
[2017-11-22] MEDS: Docusate Sodium 100 MG CAP PO (18:59)
[2017-11-22] MEDS: Apixaban 5 MG TAB PO (19:23)
[2017-11-23] VITALS (9 sets, daily range): BP systolic 107–143; BP diastolic 69–87; PULSE 72–78; RESP 15–20; TEMP 36–36.4; O2SAT 95–100
[2017-11-23] MEDS: Pantoprazole 40 MG VIAL IVP (00:03)
[2017-11-23] MEDS: Normal Saline 1,000 ML 125 ML IV ×3 (00:04→17:54)
[2017-11-23] MEDS: Normal Saline Flush 10 ML SYR IVP ×2 (00:04→10:11)
[2017-11-23] MEDS: Acetaminophen 500 MG TAB 1000 MG PO ×2 (05:29→17:03)
[2017-11-23 07:27] LABS: Abs Immature Grans 0.05 k/cumm (0.0-0.09); Absolute Basophil Count 0.04 k/cumm (0.0-0.2); Absolute Eosinophil Count 0.14 k/cumm (0.0-0.7); Absolute Lymphocyte Count 2.33 k/cumm (1.2-3.4); Absolute Monocyte Count 0.62 k/cumm (0.11-0.7); Absolute Neutrophil Count 4.43 k/cumm (1.2-6.7); Basophils % 0.5; Eosinophils % 1.8; HCT 39.1 % (40.0-50.0); HGB 12.8 g/dL (13.5-17.5); Immature Grans % 0.7; Lymphocytes % 30.6; Mean Corp. HGB Concentration 32.7 g/dL (32.0-36.0); Mean Corpuscular Hemoglobin 32.6 pg (27.0-33.0); Mean Corpuscular Volume 99.5 fL (80-95); Mean Platelet Volume 10.9 fL (8.0-11.0); Monocytes % 8.1; Neutrophils % 58.3; Platelet Count 369 x1000/uL (130-400); RBC 3.93 m/cumm (4.50-6.00); RBC Distribution Width 13.2 % (11.8-14.1); White Blood Cell Count 7.61 k/cumm (4.4-10.8)
[2017-11-23 07:44] LABS: Anion Gap 17.5 mmol/L (3-11); BUN 10 mg/dL (7-18); CO2 18.5 mmol/L (21.0-32.0); CREATININE 0.87 mg/dL (0.70-1.30); Calcium 8.9 mg/dL (8.5-10.1); Chloride 95 mmol/L (98-107); Glucose 374 mg/dL (70-100); Potassium 4.1 mmol/L (3.5-5.1); Sodium 131 mmol/L (136-145)
[2017-11-23] MEDS: Polyethylene Glycol 3350 17 GM PACKET PO (07:48)
[2017-11-23] MEDS: Allopurinol 300 MG TAB PO (07:48)
[2017-11-23] MEDS: cloNIDine 0.1 MG TAB 0.2 MG PO ×2 (07:49→19:44)
[2017-11-23] MEDS: buPROPion-XL 150 MG TABCR PO (07:49)
[2017-11-23] MEDS: Lisinopril 5 MG TAB PO (07:49)
[2017-11-23] MEDS: Atorvastatin 20 MG TAB PO (07:49)
[2017-11-23] MEDS: Apixaban 5 MG TAB PO ×2 (07:49→19:44)
--- NOTE | 2017-11-23 08:00 | DI.MRI_ITS ---
SYMPTOM/DIAGNOSIS: CEREBELLAR LESION WITH CHANGE IN MENTAL STATUS BRAIN MRI: Routine pre and post contrast examination. Comparison CT scan is 11/21/17. The ventricles and sulci are consistent with the patient's age. There is normal signal in the brain parenchyma. No intracranial mass or enhancing lesion is seen. The diffusion weighted images have a normal appearance. No findings to suggest an acute infarct are seen. No intracranial hemorrhage is present. The visualized paranasal sinuses are clear. The orbits and retro-orbital soft tissues are unremarkable. There is a normal flow void in the [place] of [place]. The pituitary gland is grossly unremarkable. IMPRESSION: No acute intracranial process. No evidence of an intracranial mass or acute infarct.
[2017-11-23] MEDS: Insulin Aspart 300 UNITS/3 ML PEN SC ×3 (08:04→17:00)
[2017-11-23] MEDS: Gadoterate meglumine 20 ML VIAL IVP (09:31)
[2017-11-23] MEDS: Metoprolol 25 MG TAB PO ×2 (10:05→22:00)
--- NOTE | 2017-11-23 12:30 | MERGE_ITS ---
*[facility]* *[facility]* [address] [place] [address] Date of study: 11/23/2017 Transthoracic Echocardiography M-mode, complete 2D, complete spectral Doppler, and color Doppler *STUDY CONCLUSIONS* Summary: 1. Left ventricle: The cavity size was normal. Systolic function was hyperdynamic. The estimated ejection fraction was 65-70%. There was no evidence of elevated ventricular filling pressure by Doppler parameters. 2. Right ventricle: The cavity size was normal. Wall thickness was normal. Systolic function was normal. 3. Atrial septum: No defect or patent foramen ovale was identified. 4. Pulmonary arteries: Pulmonary systolic pressure was in the range of 15mm Hg to 25mm Hg. 5. Inferior vena cava: The vessel was normal in size. The respirophasic diameter changes were in the normal range (greater than or equal to 50%), consistent with normal central venous pressure. *PATIENT PRESENTATION* Height: 188cm ((74in) ) S/D Pressure: 117 / 74 Weight: 114.8kg ((252.5lb) ) BSA: 2.48m^2 Test start time: 12:30 PM. Test stop time: 01:35 PM. PERFORMING Unknown ORDERING Lewis Jean-Baptiste REFERRING Lewis Jean-Baptiste PERFORMING [facility] FIELD TRAFFIC INVESTIGATOR Esperanza Fabian *PROCEDURE DATA* Procedure information: This study was interpreted by [facility]. Pertinent images and digital data are archived for permanent storage and are available for subsequent review. Study status: Routine. Transthoracic echocardiography. M-mode, complete 2D, complete spectral Doppler, and color Doppler. A Transthoracic Echocardiogram was performed. Scanning was performed from the parasternal, apical, subcostal, and suprasternal notch acoustic windows. Images were obtained using an [employer] SC 2000 cardiac ultrasound machine. Image quality was adequate. Study completion: The patient tolerated the procedure well. History: PMH: New onset of A fib *CARDIAC ANATOMY* Left ventricle: The cavity size was normal. Systolic function was hyperdynamic. The estimated ejection fraction was 65-70%. Diastolic parameters were normal for age. There was no evidence of elevated ventricular filling pressure by Doppler parameters. Aortic valve: Probably trileaflet; mildly thickened, mildly calcified leaflets. Doppler: There was no stenosis. There was no regurgitation. VTI ratio of LVOT to aortic valve: 1.05. Valve area (VTI): 2.9cm^2. Indexed valve area (VTI): 1.2cm^2/m^2. Peak velocity ratio of LVOT to aortic valve: 0.91. Valve area (Vmax): 2.5cm^2. Indexed valve area (Vmax): 1cm^2/m^2. Mean velocity ratio of LVOT to aortic valve: 0.78. Valve area (Vmean): 2.1cm^2. Indexed valve area (Vmean): 0.9cm^2/m^2. Mean gradient (S): 5.3mm Hg. Peak gradient (S): 9.1mm Hg. Aorta: Aortic root: The aortic root was normal in size. Ascending aorta: The ascending aorta was normal in size. Mitral valve: Doppler: There was no evidence for stenosis. There was trivial regurgitation. Valve area by pressure half-time: 2.8cm^2. Indexed valve area by pressure half-time: 1.1cm^2/m^2. Left atrium: The atrium was normal in size. Atrial septum: No defect or patent foramen ovale was identified. Right ventricle: The cavity size was normal. Wall thickness was normal. Systolic function was normal. Pulmonic valve: Doppler: There was no evidence for stenosis. There was no significant regurgitation. Peak gradient (S): 3.9mm Hg. Tricuspid valve: Doppler: There was mild regurgitation. Pulmonary artery: Poorly visualized. Pulmonary systolic pressure was in the range of 15mm Hg to 25mm Hg. Pericardium: There was no pericardial effusion. Systemic veins: Inferior vena cava: The vessel was normal in size. The respirophasic diameter changes were in the normal range (greater than or equal to 50%), consistent with normal central venous pressure. Measurements Left ventricle Value Reference LV ID, ED, PLAX 4.5 cm 3.5 - 6.0 LV ID, ES, PLAX 2.8 cm 2.1 - 4.0 LV PW thickness, ED, PLAX 1.0 cm LV end-diastolic volume, 1-p A2C 110 ml LV ejection fraction, 1-p A2C 50 % LV end-diastolic volume, 1-p A4C 103 ml LV ejection fraction, 1-p A4C 56 % LV e', lateral 0.093 m/sec LV E/e', lateral 7 LV e', medial 0.088 m/sec LV E/e', medial 8 LV e', average 0.09 m/sec LV E/e', average 8 Ventricular septum Value Reference IVS thickness, ED, PLAX 1.0 cm LVOT Value Reference LVOT ID, A-P 1.9 cm LVOT area 2.7 cm^2 LVOT peak velocity, S 1.38 m/sec LVOT mean velocity, S 0.84 m/sec LVOT VTI, S 26.2 cm LVOT peak gradient, S 7.6 mm Hg LVOT mean gradient, S 3.5 mm Hg Stroke volume (SV), LVOT DP 72 ml Stroke index (SV/bsa), LVOT DP 29 ml/m^2 Aortic valve Value Reference Aortic valve peak velocity, S 1.5 m/sec Aortic valve mean velocity, S 1.08 m/sec Aortic valve VTI, S 25.0 cm Aortic mean gradient, S 5.3 mm Hg Aortic peak gradient, S 9.1 mm Hg VTI ratio, LVOT/AV 1.05 Aortic valve area, VTI 2.9 cm^2 Velocity ratio, peak, LVOT/AV 0.91 Aortic valve area, peak velocity 2.5 cm^2 Velocity ratio, mean, LVOT/AV 0.78 Aortic valve area, mean velocity 2.1 cm^2 Aortic valve area/bsa, mean velocity 0.9 cm^2/m^2 Aorta Value Reference Aortic root ID, ED 3.0 cm Ascending aorta ID, A-P, S 3.3 cm Left atrium Value Reference LA ID, A-P, ES 2.7 cm LA ID/bsa, A-P 1.1 cm/m^2 <=2.2 LA area, ES, A4C 22.4 cm^2 8.8 - 23.4 LA area, ES, A2C 17 cm^2 LA volume/bsa, S 29 ml/m^2 LA volume, ES, 2-p 67 ml LA volume/bsa, ES, 2-p 27 ml/m^2 LA/aortic root ratio 0.9 Mitral valve Value Reference Mitral E-wave peak velocity 0.69 m/sec Mitral A-wave peak velocity 0.66 m/sec Mitral deceleration time (H) 271 ms 150 - 230 Mitral pressure half-time 79 ms Mitral E/A ratio, peak 1.05 Mitral valve area, PHT, DP 2.8 cm^2 Tricuspid valve Value Reference Tricuspid regurg peak velocity 2.2 m/sec Tricuspid peak RV-RA gradient 19.9 mm Hg Right atrium Value Reference RA area, ES, A4C 17.5 cm^2 8.3 - 19.5 Pulmonic valve Value Reference Pulmonic peak gradient, S 3.9 mm Hg Legend: (L) and (H) brandi values outside specified reference range. I have personally reviewed the images and have reviewed and edited the reported findings. Electronically signed by Adama Sahu MD 11/23/2017 17:36
--- NOTE | 2017-11-23 13:58 | PDOC.CMPRO ---
- If Service Date Differs Date of service: 11/23/17 Time of Service: 13:58 Care Management Progress Note S/O: Dino is doing well this morning, he is sitting up in his chair open to discussion. Per morning report Dino is scheduled for an Echo and MRI today. DC plan reviewed and unchanged. A: 52 y /o male admitted 11/21/17 with stroke. P: Dino will return home with no anticipated services when medically cleared. he will F/U with PCP and plan of care as prescribed. Dino will transport home via private vehicle at time of DC.
--- NOTE | 2017-11-23 14:45 | PGE_ITS ---
Documented by User: Stella Cortez NP 11/23/17 14:55 Date of service: 11/23/17 Time of Service: 14:44 Assessment and Plan (1) Cerebellar lesion: Current visit: Yes Status: Acute Incidental finding of a cerebellar lesion concerning for CVA on Head CT. This was not visualized on MRI of the brain. Patient without any focal neurological complaints, not complaining of any dizziness or ataxia other than occasional upon standing. (2) Atrial fibrillation: Start date: 11/21/17 Current visit: Yes Status: Chronic New onset. Started on Eliquis for stroke prevention and tolerating well. Continue BB therapy for rate control. No further AF burden on telemetry. ECHO pending. .May benefit from a ZioPatch as an outpatient to better gauge AF burden and HR profile. (3) Essential hypertension: Current visit: No Status: Chronic Currently on SHELDON-I, Clonidine and BB due to newly diagnosed Afib. Monitor blood pressure. (4) Depressive disorder: Current visit: No Status: Deleted Continue home regimen of Wellbutrin and Buspar. (5) Diabetes mellitus: Current visit: No Status: Chronic Currently on ISS and ADA diet. Monitor blood sugars. Continue IVFs. Holding metformin. Will add Lantus 10 units SC daily and D/C Glipizide. (6) Alcohol intake above recommended sensible limits: Current visit: No Status: Chronic (7) DVT prophylaxis: Current visit: No Status: Inactive Continue heparin SC. Subjective Patient reports: no new complaints and feels better Interval history since last seen: Mr. Guillermo is a 52 yo with poorly controlled DM and newly diagnosed AF who presented to the ER on 11/21/17 with general malaise. He also had some findings on Head CT suggestive of possible CVA, however MRI today was normal. Dino was started on anti-coagulation and has tolerated this well so far. He is starting to feel a little improvement, however is concerned about ongoing hyperglycemia. ROS: 10 point ROS obtained with pertinent positives noted in HPI, otherwise negative. Exam Narrative Exam Narrative: General: 52 yo obese male. Well developed and well nourished. No acute distress. A/Ox3. Pleasant and cooperative. HEENT: Normocephalic, Atraumatic. Conjunctiva clear, sclera non-icteric. PERRL. EOMI. Moist mucous membranes, oropharynx clear. Neck supple, no JVD, thyromegaly or lymphadenopathy. Cardiovascular: Regular rate and rhythm, S1S2, no S3 or S4. No murmur, rub, gallop. Respiratory: Chest expansion symmetrical, respirations unlabored. Lungs clear to auscultation, no adventitious breath sounds. GI: Abdomen round, soft, non-tender to palpation. Normoactive bowel sounds in all 4 quadrants. No hepatosplenomegaly or prominent masses. : deferred Extremities: Lower extremities without deformity or edema Neurological: non-focal. CN 2-12 grossly intact. Psychiatric: pleasant and cooperative. Speech clear and articulate. Mood and affect normal. Objective Objective Clinical Data: Abnormal lab results 11/23/17 11/23/17 Range/Units 06:50 06:50 RBC 3.93 L (4.50-6.00) m/cumm Hgb 12.8 L (13.5-17.5) g/dL Hct 39.1 L (40.0-50.0) % MCV 99.5 H (80-95) fL Sodium 131 L (136-145) mmol/L Chloride 95 L (98-107) mmol/L Carbon Dioxide 18.5 L (21.0-32.0) mmol/L Anion Gap 17.5 H (3-11) mmol/L Glucose 374 H (70-100) mg/dL Vital Signs Temperature 36.1 C L 11/23/17 11:05 Temperature Source Tympanic 11/23/17 11:05 Pulse 76 11/23/17 11:05 Pulse Rhythm Regular 11/23/17 07:22 Pulse 90 11/21/17 21:46 Respiratory Rate 20 11/23/17 11:05 Respiratory Effort 11/23/17 07:22 Respiratory Depth Normal 11/23/17 07:22 Respiratory Pattern Normal 11/23/17 07:22 Blood Pressure 117/74 11/23/17 11:05 Blood Pressure Mean 99 11/21/17 21:46 Blood Pressure Position Supine 11/21/17 18:06 Pulse Oximetry 99 11/23/17 11:05 Oxygen Delivery Method Room Air 11/23/17 11:05 Oxygen Flow Rate 0 11/23/17 11:05 Pain Level 2 11/23/17 06:29 Comment 11/22/17 08:41 Intake & Output 11/22/17 11/23/17 11/23/17 23:59 11:59 23:59 Intake Total 2322.5 / 2322.5 2308.750 / 2308.750 1310.417 / 1310.417 Balance 2322.5 / 2322.5 2308.750 / 2308.750 1310.417 / 1310.417 Weight 118.6 kg Intake: IV 962.5 / 962.5 1818.750 / 1818.750 810.417 / 810.417 Oral 1360 / 1360 490 / 490 500 / 500 Other: Urine Appearance Clear Clear Comment pt gets up AD YAIR to void. independantly Stool Size Moderate Stool Characteristics Soft Brown Voiding Methods Toilet Toilet Laboratory Results WBC 7.61 k/cumm (4.4-10.8) 11/23/17 06:50 RBC 3.93 m/cumm (4.50-6.00) L 11/23/17 06:50 Hgb 12.8 g/dL (13.5-17.5) L 11/23/17 06:50 Hct 39.1 % (40.0-50.0) L 11/23/17 06:50 MCV 99.5 fL (80-95) H 11/23/17 06:50 MCH 32.6 pg (27.0-33.0) 11/23/17 06:50 MCHC 32.7 g/dL (32.0-36.0) 11/23/17 06:50 RDW 13.2 % (11.8-14.1) 11/23/17 06:50 Plt Count 369 x1000/uL (130-400) 11/23/17 06:50 MPV 10.9 fL (8.0-11.0) 11/23/17 06:50 Immature Gran % 0.7 11/23/17 06:50 Neutrophils % 58.3 11/23/17 06:50 Lymphocytes % 30.6 11/23/17 06:50 Monocytes % 8.1 11/23/17 06:50 Eosinophils % 1.8 11/23/17 06:50 Basophils % 0.5 11/23/17 06:50 Absolute Neutrophils 4.43 k/cumm (1.2-6.7) 11/23/17 06:50 Absolute Lymphocytes 2.33 k/cumm (1.2-3.4) 11/23/17 06:50 Absolute Monocytes 0.62 k/cumm (0.11-0.7) 11/23/17 06:50 Absolute Eosinophils 0.14 k/cumm (0.0-0.7) 11/23/17 06:50 Absolute Basophils 0.04 k/cumm (0.0-0.2) 11/23/17 06:50 VBG pH 7.32 (7.32-7.43) 11/21/17 20:29 VBG pCO2 36 mm/Hg (34-47) 11/21/17 20:29 VBG pO2 47 mm/Hg (28-44) H 11/21/17 20:29 VBG HCO3 19 mmol/L (22-28) L 11/21/17 20:29 VBG Total CO2 17 mmol/L (22-29) L 11/21/17 20:29 VBG O2 Saturation 80 % (70-80) 11/21/17 20:29 VBG Base Excess mmol/L (-3-3) 11/21/17 20:29 Carboxyhemoglobin % 2.1 % 11/22/17 07:05 Sodium 131 mmol/L (136-145) L 11/23/17 06:50 Potassium 4.1 mmol/L (3.5-5.1) 11/23/17 06:50 Chloride 95 mmol/L (98-107) L 11/23/17 06:50 Carbon Dioxide 18.5 mmol/L (21.0-32.0) L 11/23/17 06:50 Anion Gap 17.5 mmol/L (3-11) H 11/23/17 06:50 BUN 10 mg/dL (7-18) 11/23/17 06:50 Creatinine 0.87 mg/dL (0.70-1.30) 11/23/17 06:50 Estimated GFR/1.73 m2 >= 60.00 (mL/min/1.73m2) 11/23/17 06:50 Glucose 374 mg/dL (70-100) H 11/23/17 06:50 Calcium 8.9 mg/dL (8.5-10.1) 11/23/17 06:50 Magnesium 1.7 mg/dL (1.8-2.4) L 11/21/17 15:40 Total Bilirubin 0.7 mg/dL (0.2-1.0) 11/22/17 07:05 Conjugated Bilirubin 0.33 mg/dL (0.00-0.20) H 11/21/17 15:40 AST 41 U/L (15-37) H 11/22/17 07:05 ALT 33 U/L (12-78) 11/22/17 07:05 Alkaline Phosphatase 151 U/L (46-116) H 11/22/17 07:05 Troponin I < 0.02 ng/mL (0.00-0.06) 11/22/17 15:45 Total Protein 7.5 g/dL (6.4-8.2) 11/22/17 07:05 Albumin 2.7 g/dL (3.4-5.0) L 11/22/17 07:05 Triglycerides 161 mg/dL (30-150) H 11/22/17 07:05 Total Cholesterol 155 mg/dL (50-200) 11/22/17 07:05 LDL Cholesterol Direct 76 mg/dL (<100) 11/22/17 07:05 HDL Cholesterol 57 mg/dL (40-60) 11/22/17 07:05 Lipase 248 U/L (73-393) 11/21/17 15:40 TSH 2.49 uIU/mL (0.358-3.74) 11/22/17 07:05 Urine Color Yellow (Yellow) 11/21/17 19:34 Urine Clarity Clear 11/21/17 19:34 Urine pH 5.0 (5-8) 11/21/17 19:34 Ur Specific [place] 1.020 (1.005-1.025) 11/21/17 19:34 Urine Protein Negative mg/dL (Negative) 11/21/17 19:34 Urine Ketones >=160 mg/dL (Negative) 11/21/17 19:34 Urine Blood Negative (Negative) 11/21/17 19:34 Urine Nitrite Negative (Negative) 11/21/17 19:34 Urine Bilirubin Small (Negative) H 11/21/17 19:34 Urine Urobilinogen 0.2 EU/dL (Up TO 0.2) 11/21/17 19:34 Ur Leukocyte Esterase Negative (Negative) 11/21/17 19:34 Urine Glucose 500 mg/dL (Negative) H 11/21/17 19:34
--- NOTE | 2017-11-23 14:58 | CHAPLAIN ---
Dino was visiting with his aunt when I stopped in. He was pleasant and easily engaged in a conversation. He is waiting to hear the results of several tests he was involved in today. I explained my role and offered support.
[2017-11-23] MEDS: Insulin Glargine 300 UNITS/3 ML PEN 10 UNITS SC (22:00)
[2017-11-24] VITALS (10 sets, daily range): BP systolic 106–140; BP diastolic 71–87; PULSE 66–81; RESP 15–97; TEMP 35.7–36.6; O2SAT 18–99
[2017-11-24] MEDS: Normal Saline 1,000 ML 125 ML IV (00:10)
[2017-11-24] MEDS: Normal Saline Flush 10 ML SYR IVP (00:12)
[2017-11-24] MEDS: Pantoprazole 40 MG VIAL IVP (00:12)
[2017-11-24] MEDS: Normal Saline 1,000 ML 120 ML IV (06:54)
[2017-11-24] MEDS: Acetaminophen 500 MG TAB 1000 MG PO ×3 (07:00→21:52)
[2017-11-24 07:49] LABS: Abs Immature Grans 0.03 k/cumm (0.0-0.09); Absolute Basophil Count 0.03 k/cumm (0.0-0.2); Absolute Eosinophil Count 0.22 k/cumm (0.0-0.7); Absolute Lymphocyte Count 2.42 k/cumm (1.2-3.4); Absolute Monocyte Count 0.55 k/cumm (0.11-0.7); Absolute Neutrophil Count 2.71 k/cumm (1.2-6.7); Basophils % 0.5; Eosinophils % 3.7; HCT 39.5 % (40.0-50.0); HGB 12.9 g/dL (13.5-17.5); Immature Grans % 0.5; Lymphocytes % 40.6; Mean Corp. HGB Concentration 32.7 g/dL (32.0-36.0); Mean Corpuscular Hemoglobin 32.4 pg (27.0-33.0); Mean Corpuscular Volume 99.2 fL (80-95); Mean Platelet Volume 10.7 fL (8.0-11.0); Monocytes % 9.2; Neutrophils % 45.5; Platelet Count 303 x1000/uL (130-400); RBC 3.98 m/cumm (4.50-6.00); RBC Distribution Width 13.2 % (11.8-14.1); White Blood Cell Count 5.96 k/cumm (4.4-10.8)
[2017-11-24 07:57] LABS: Anion Gap 12.5 mmol/L (3-11); BUN 7 mg/dL (7-18); CO2 22.5 mmol/L (21.0-32.0); CREATININE 0.69 mg/dL (0.70-1.30); Calcium 8.9 mg/dL (8.5-10.1); Chloride 98 mmol/L (98-107); Glucose 314 mg/dL (70-100); Potassium 3.9 mmol/L (3.5-5.1); Sodium 133 mmol/L (136-145)
[2017-11-24] MEDS: Insulin Aspart 300 UNITS/3 ML PEN SC ×3 (08:07→16:58)
[2017-11-24] MEDS: cloNIDine 0.1 MG TAB 0.2 MG PO ×2 (08:08→20:04)
[2017-11-24] MEDS: Lisinopril 5 MG TAB PO (08:08)
[2017-11-24] MEDS: buPROPion-XL 150 MG TABCR PO (08:08)
[2017-11-24] MEDS: Allopurinol 300 MG TAB PO (08:08)
[2017-11-24] MEDS: Apixaban 5 MG TAB PO ×2 (08:08→20:04)
[2017-11-24] MEDS: Atorvastatin 20 MG TAB PO (08:08)
[2017-11-24] MEDS: Insulin Glargine 300 UNITS/3 ML PEN SC (09:20)
[2017-11-24] MEDS: Metoprolol 25 MG TAB PO ×2 (09:21→21:52)
--- NOTE | 2017-11-24 11:35 | DM INPTCON_ITS ---
DESCRIPTION/ASSESSMENT: Appreciate diabetes consult for Mr. Chavira who is hospitalized with cerebral lesion and a-fibrillation. BMI 34 A1c in June 7.7. BLood sugars this hospitalization [phone] with insulin correction at the resistant level. He has been on glipizide and metformin at home. Here he is started on 10u Glargine increased to 14 units. He does not monitor his blood sugars but is interested in the [employer] monitoring system. Mr. Chavira is motivated to improve his diabetes. INTERVENTION/PLAN: Inadequate glycemic control despite 48u correction insulin yesterday and 10u basal insulin. RN states he will be going home on insulin. Will instruct in use of insulin pen; will look at glucose monitoring systems for him. Will review food plan and other self-management needs.
--- NOTE | 2017-11-24 15:13 | DM INPTCON_ITS ---
DIABETES INPATIENT CONSULT PATIENT NAME: VADIM WALSH UNIT #: [id number] ADMITTING PROVIDER: Yvette Marquez PRIMARY CARE PROVIDER: JONATHAN STEVEN MD, DC DATE OF ADMIT: 11/21 : 1965 DESCRIPTION/ASSESSMENT: Appreciate diabetes consult for Mr. Walsh who is hospitalized with cerebral lesion and a-fibrillation. BMI 34 A1c in June 7.7. BLood sugars this hospitalization [phone] with insulin correction at the resistant level. He has been on glipizide and metformin at home. Here he is started on 10u Glargine increased to 14 units. He does not monitor his blood sugars but is interested in the [employer] monitoring system. Mr. Walsh is motivated to improve his diabetes. INTERVENTION/PLAN: Inadequate glycemic control despite 48u correction insulin yesterday and 10u basal insulin. RN states he will be going home on insulin. Instruct in use of insulin pen and he is able to return demonstration without difficulty. Action of medication discussed. Reviewed basics of diabetes food guide. PLAN: Will review insulin management; hypoglycemia, glucose monitoring 11/25/17 Suggest A1c
--- NOTE | 2017-11-24 15:15 | PDOC.CMPRO ---
Care Management Progress Note S/O: Blayne had many visitors throughout the day, including his parents. He remains pleasant in interaction and asked many questions pertinent to discharge planning. Per MD, there is no evidence of a stroke; acute or subacute, though Blayne does meet criteria to be on anticoagulants due to AFIB, and will return home with new prescription for Eliquis. As well, he will have new prescriptions for Insulin and supplies and will begin education central to managing this at home. He will also need a glucometer. Dino reports he will be ready for discharge when his glucose levels stabilize below two hundred and reports prior to lunch it was 350. A: 52 year old male admitted to [facility] 11/21/17 for stroke. P: Dino will return home when ready per MD. 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 Dino will need a glucometer and will have new prescription for Eliquis per MD. Blayne reports filling his prescriptions through [facility] in [place].
--- NOTE | 2017-11-24 15:24 | CMPROGNOTE_ITS ---
Care Management Progress Note S/O: Blayne had many visitors throughout the day, including his parents. He remains pleasant in interaction and asked many questions pertinent to discharge planning. Per MD, there is no evidence of a stroke; acute or subacute, though Blayne does meet criteria to be on anticoagulants due to AFIB, and will return home with new prescription for Eliquis. As well, he will have new prescriptions for Insulin and supplies and will begin education central to managing this at home. He will also need a glucometer. Dino reports he will be ready for discharge when his glucose levels stabilize below two hundred and reports prior to lunch it was 350. A: 52 year old male admitted to [facility] 11/21/17 for stroke. P: Dino will return home when ready per MD. 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 Dino will need a glucometer and will have new prescription for Eliquis per MD. Blayne reports filling his prescriptions through [facility] in [place].
--- NOTE | 2017-11-24 15:27 | CHAPLAIN ---
Dino was sitting up in his chair when I visited. He continues to be friendly and easily engages in a conversation. He said his mom is at [facility] for a follow up on health issue she has been dealing with, but he expects other family members will visit today. He is waiting for his blood sugar level to lower, he said. He's noticed that his eyesight has been affected recently. Dino seems to be comfortable being here and seems to enjoy extracting with staff.
--- NOTE | 2017-11-24 17:07 | W.PM.PROGNOT ---
Assessment and Plan (1) Cerebellar lesion: Current visit: Yes Status: Acute Incidental finding of a cerebellar lesion concerning for CVA. Patient without any focal neurological complaints, not complaining of any dizziness or ataxia other than occasional upon standing. MRI brain unremarkable and without evidence of an intracranial mass or infarct. (2) Atrial fibrillation: Current visit: Yes Status: Chronic Initial EKG with possible Afib vs. Multifocal Atrial Tachycardia - However, upon slowing the initial telemetry read appears to be Afib. Also with evidence of potential CVA by CT Head. ECHO checked and with normal LV function without significant valvulopathy. Patient tolerating low dose BB therapy. CHADSVASC2 score of 2 based on DM and HTN - Continue Apixaban as well. Maintain on telemetry. Patient spontaneously converted to sinus rhythm shortly after initial bout of Afib. (3) Essential hypertension: Current visit: No Status: Chronic Currently on SHELDON-I and Clonidine. Initiated BB due to newly diagnosed Afib. Monitor blood pressure. (4) Depressive disorder: Current visit: No Status: Deleted Continue home regimen of Wellbutrin and Buspar. (5) Diabetes mellitus: Current visit: No Status: Chronic Currently on ISS and ADA diet. Monitor blood sugars. Continue IVFs. Holding metformin - on Glipizide. Current significant hyperglycemia may be on the basis of recent inflammatory condition (pancreatitis). Initiated on Lantus. Attempt to titrate for improved control. (6) Alcohol intake above recommended sensible limits: Current visit: No Status: Chronic Reports cessation of alcohol at home. (7) DVT prophylaxis: Current visit: No Status: Inactive On Apixiban. Subjective Interval history since last seen: 52 year old man with a PMHx significant for Binge type alcohol drinking behavior, uncontrolled DM, and recent admission for pancreatitis presents to [facility] Emergency Room with complaints of Fatigue and malaise. Mr. Guillermo presented to the hospital for evaluation of continued and ongoing malaise. He also was found to have hyperglycemia and appeared dehydrated. Secondary to the overall malaise and mild change in mental status, CT scan of the head was performed and showed a hypodensity in his left cerebellum which could represent a stroke but needed further investigations. He has had no history of CVA or heart disease in the past. Shortly after admission the patient was noted to become tachycardic, and an EKG was obtained showing either Afib or a multifocal atrial tachycardia. However, following deliberate slowing of the rhythm on telemetry there appeared to be clear evidence of Afib. Since that time the patient spontaneously converted back to sinus. Subsequent imaging showed no evidence of a CVA or other abnormality of the brain. Patient remains hyperglycemic despite initiation of insulin. No other events reported. Mr. Guillermo appears afebrile. Exam Narrative Exam Narrative: General: Patient appears comfortable, AAOX3, NAD Neck: Supple CV: Regular, nontachycardic, S1S2, No rubs, murmurs, or gallops. Pulmonary: Clear to auscultation bilaterally, no crackles, wheezing, or rhonchi Abdomen: + Bowel Sounds, soft, nontender, nondistended Vascular: No lower extremity edema Neurologic: CN II-XII grossly intact. No focal deficits. Patient moving all 4 extremities. Psych: Normal mood and affect. Objective Objective Clinical Data: Abnormal lab results 11/24/17 11/24/17 Range/Units 07:20 07:20 RBC 3.98 L (4.50-6.00) m/cumm Hgb 12.9 L (13.5-17.5) g/dL Hct 39.5 L (40.0-50.0) % MCV 99.2 H (80-95) fL Sodium 133 L (136-145) mmol/L Anion Gap 12.5 H (3-11) mmol/L Creatinine 0.69 L (0.70-1.30) mg/dL Glucose 314 H (70-100) mg/dL Vital Signs Temperature 36.6 C 11/24/17 16:09 Temperature Source Tympanic 11/24/17 16:09 Pulse 71 11/24/17 16:09 Pulse Rhythm Regular 11/24/17 08:42 Pulse 90 11/21/17 21:46 Respiratory Rate 18 11/24/17 16:09 Respiratory Effort 11/24/17 08:42 Respiratory Depth Normal 11/24/17 08:42 Respiratory Pattern Normal 11/24/17 08:42 Blood Pressure 121/71 11/24/17 16:09 Blood Pressure Mean 99 11/21/17 21:46 Blood Pressure Position Supine 11/21/17 18:06 Pulse Oximetry 96 11/24/17 16:09 Oxygen Delivery Method Room Air 11/24/17 16:09 Oxygen Flow Rate 0 11/24/17 16:09 Pain Level 2 11/24/17 14:56 Comment 11/22/17 08:41 Intake & Output 11/23/17 11/24/17 11/24/17 23:59 11:59 23:59 Intake Total 1979.000 2325.333 / 2325.333 1238 / 1238 Balance 1979.000 2325.333 / 2325.333 1238 / 1238 Weight 121 kg Intake: IV 1000.000 / 7270.681 1149.333 / 1785.333 998 / 998 Oral 980 / 980 540 / 540 240 / 240 Other: Urine Appearance Clear Clear Comment pt gets up AD YAIR to void. independant Stool Size Moderate Stool Characteristics Soft Brown Voiding Methods Toilet Toilet Laboratory Results WBC 5.96 k/cumm (4.4-10.8) 11/24/17 07:20 RBC 3.98 m/cumm (4.50-6.00) L 11/24/17 07:20 Hgb 12.9 g/dL (13.5-17.5) L 11/24/17 07:20 Hct 39.5 % (40.0-50.0) L 11/24/17 07:20 MCV 99.2 fL (80-95) H 11/24/17 07:20 MCH 32.4 pg (27.0-33.0) 11/24/17 07:20 MCHC 32.7 g/dL (32.0-36.0) 11/24/17 07:20 RDW 13.2 % (11.8-14.1) 11/24/17 07:20 Plt Count 303 x1000/uL (130-400) 11/24/17 07:20 MPV 10.7 fL (8.0-11.0) 11/24/17 07:20 Immature Gran % 0.5 11/24/17 07:20 Neutrophils % 45.5 11/24/17 07:20 Lymphocytes % 40.6 11/24/17 07:20 Monocytes % 9.2 11/24/17 07:20 Eosinophils % 3.7 11/24/17 07:20 Basophils % 0.5 11/24/17 07:20 Absolute Neutrophils 2.71 k/cumm (1.2-6.7) 11/24/17 07:20 Absolute Lymphocytes 2.42 k/cumm (1.2-3.4) 11/24/17 07:20 Absolute Monocytes 0.55 k/cumm (0.11-0.7) 11/24/17 07:20 Absolute Eosinophils 0.22 k/cumm (0.0-0.7) 11/24/17 07:20 Absolute Basophils 0.03 k/cumm (0.0-0.2) 11/24/17 07:20 VBG pH 7.32 (7.32-7.43) 11/21/17 20:29 VBG pCO2 36 mm/Hg (34-47) 11/21/17 20: VBG pO2 47 mm/Hg (28-44) H 11/21/17 20:29 VBG HCO3 19 mmol/L (22-28) L 11/21/17 20:29 VBG Total CO2 17 mmol/L (22-29) L 11/21/17 20:29 VBG O2 Saturation 80 % (70-80) 11/21/17 20:29 VBG Base Excess mmol/L (-3-3) 11/21/17 20:29 Carboxyhemoglobin % 2.1 % 11/22/17 07:05 Sodium 133 mmol/L (136-145) L 11/24/17 07:20 Potassium 3.9 mmol/L (3.5-5.1) 11/24/17 07:20 Chloride 98 mmol/L (98-107) 11/24/17 07:20 Carbon Dioxide 22.5 mmol/L (21.0-32.0) 11/24/17 07:20 Anion Gap 12.5 mmol/L (3-11) H 11/24/17 07:20 BUN 7 mg/dL (7-18) 11/24/17 07:20 Creatinine 0.69 mg/dL (0.70-1.30) L 11/24/17 07:20 Estimated GFR/1.73 m2 >= 60.00 (mL/min/1.73m2) 11/24/17 07:20 Glucose 314 mg/dL (70-100) H 11/24/17 07:20 Calcium 8.9 mg/dL (8.5-10.1) 11/24/17 07:20 Magnesium 1.7 mg/dL (1.8-2.4) L 11/21/17 15:40 Total Bilirubin 0.7 mg/dL (0.2-1.0) 11/22/17 07:05 Conjugated Bilirubin 0.33 mg/dL (0.00-0.20) H 11/21/17 15:40 AST 41 U/L (15-37) H 11/22/17 07:05 ALT 33 U/L (12-78) 11/22/17 07:05 Alkaline Phosphatase 151 U/L (46-116) H 11/22/17 07:05 Troponin I < 0.02 ng/mL (0.00-0.06) 11/22/17 15:45 Total Protein 7.5 g/dL (6.4-8.2) 11/22/17 07:05 Albumin 2.7 g/dL (3.4-5.0) L 11/22/17 07:05 Triglycerides 161 mg/dL (30-150) H 11/22/17 07:05 Total Cholesterol 155 mg/dL (50-200) 11/22/17 07:05 LDL Cholesterol Direct 76 mg/dL (<100) 11/22/17 07:05 HDL Cholesterol 57 mg/dL (40-60) 11/22/17 07:05 Lipase 248 U/L (73-393) 11/21/17 15:40 TSH 2.49 uIU/mL (0.358-3.74) 11/22/17 07:05 Urine Color Yellow (Yellow) 11/21/17 19:34 Urine Clarity Clear 11/21/17 19:34 Urine pH 5.0 (5-8) 11/21/17 19:34 Ur Specific [place] 1.020 (1.005-1.025) 11/21/17 19:34 Urine Protein Negative mg/dL (Negative) 11/21/17 19:34 Urine Ketones >=160 mg/dL (Negative) 11/21/17 19:34 Urine Blood Negative (Negative) 11/21/17 19:34 Urine Nitrite Negative (Negative) 11/21/17 19:34 Urine Bilirubin Small (Negative) H 11/21/17 19:34 Urine Urobilinogen 0.2 EU/dL (Up TO 0.2) 11/21/17 19:34 Ur Leukocyte Esterase Negative (Negative) 11/21/17 19:34 Urine Glucose 500 mg/dL (Negative) H 11/21/17 19:34
[2017-11-24] MEDS: Docusate Sodium 100 MG CAP PO (20:05)
[2017-11-24] MEDS: Insulin Glargine 300 UNITS/3 ML PEN 14 UNITS SC (21:53)
[2017-11-25] VITALS (7 sets, daily range): BP systolic 108–133; BP diastolic 74–84; PULSE 66–83; RESP 14–18; TEMP 36–36.7; O2SAT 96–99
[2017-11-25] MEDS: Normal Saline Flush 10 ML SYR IVP ×2 (00:08→08:57)
[2017-11-25] MEDS: Pantoprazole 40 MG VIAL IVP (00:08)
[2017-11-25 07:28] LABS: Abs Immature Grans 0.03 k/cumm (0.0-0.09); Absolute Basophil Count 0.02 k/cumm (0.0-0.2); Absolute Eosinophil Count 0.24 k/cumm (0.0-0.7); Absolute Lymphocyte Count 2.12 k/cumm (1.2-3.4); Absolute Neutrophil Count 2.51 k/cumm (1.2-6.7); Basophils % 0.4; Eosinophils % 4.4; HGB 12.3 g/dL (13.5-17.5); Immature Grans % 0.6; Lymphocytes % 39.1; Mean Corp. HGB Concentration 32.4 g/dL (32.0-36.0); Mean Corpuscular Hemoglobin 32.1 pg (27.0-33.0); Mean Corpuscular Volume 99.2 fL (80-95); Monocytes % 9.2; Neutrophils % 46.3; Platelet Count 302 x1000/uL (130-400); RBC 3.83 m/cumm (4.50-6.00); RBC Distribution Width 13.1 % (11.8-14.1); White Blood Cell Count 5.42 k/cumm (4.4-10.8)
[2017-11-25 07:41] LABS: Anion Gap 10.6 mmol/L (3-11); BUN 5 mg/dL (7-18); CO2 24.4 mmol/L (21.0-32.0); CREATININE 0.69 mg/dL (0.70-1.30); Chloride 98 mmol/L (98-107); Glucose 298 mg/dL (70-100); Potassium 3.9 mmol/L (3.5-5.1); Sodium 133 mmol/L (136-145)
[2017-11-25] MEDS: Atorvastatin 20 MG TAB PO (08:57)
[2017-11-25] MEDS: Lisinopril 5 MG TAB PO (08:57)
[2017-11-25] MEDS: cloNIDine 0.1 MG TAB 0.2 MG PO (08:57)
[2017-11-25] MEDS: Magnesium Oxide 400 MG TAB PO (08:57)
[2017-11-25] MEDS: buPROPion-XL 150 MG TABCR PO (08:57)
[2017-11-25] MEDS: Apixaban 5 MG TAB PO (08:58)
[2017-11-25] MEDS: Potassium Chloride 10 MEQ TABCR PO (08:58)
[2017-11-25] MEDS: Insulin Aspart 300 UNITS/3 ML PEN SC ×2 (08:58→12:06)
[2017-11-25] MEDS: Allopurinol 300 MG TAB PO (08:58)
--- NOTE | 2017-11-25 09:19 | DM INPTCON_ITS ---
DESCRIPTION/ASSESSMENT: Dino Guillermo voiced that he is here, in part, to manage his diabetes. He received 14u Glargine and 42 units Novolog in the form of insulin correction which maintained his blood sugars in the 300s. The only carbohydrate documented is 60grams last evening. He received 12 units Novolog for that meal. INTERVENTION/PLAN: Insufficient insulin at this time. Based on his weight, he may utilize ~50 units insulin. Suggest initiating 25units basal Glargine and 8 units to cover food in addition to insulin correction at the resistant level.
[2017-11-25] MEDS: Metoprolol 25 MG TAB PO (10:10)
[2017-11-25] MEDS: Acetaminophen 500 MG TAB 1000 MG PO (10:15)
--- NOTE | 2017-11-25 12:04 | PDOC.CMDIS ---
- If Service Date Differs Date of service: 11/25/17 Time of Service: 12:04 LACE Index Scoring Tool - Questions: Length of Stay (in days): 3 Acuity (Admit via E.D.?): Yes Comorbidities: Diabetes w/o Complication E.D. Visits: 2 - Answers: Total Score: 9 Risk of Readmission: Low Risk Care Management Discharge Reason for Hospitalization: Stroke r/o, DM type 2, New Atrial fib. Discharge Plan: Dino will be discharged home with new medication including insulin, and Eliquis. He will follow up with primary care and Lizzy Mendieta as outpatient at [facility] for DM management. CM left a voicemail for [facility], and Lizzy at [facility]. He has met with Jess Ruelas DM educator while inpatient. He owen have a new prescription for Eliquis, Lantus, glucometer, lancets, glucose monitor strips and pen needles. He has agreed to home health services for nursing he will need a face to face for new services. CM has provided contact information for follow up and questions after discharge. CM contacted Home Health and provided referral over the phone. Patient/Family Education Needs: Discharge education, limitations and follow up plan of care. CM reviewed DM education including symptoms of hypo and hyperglycemia. Dino is able to explain signs of hypoglycemia to CM. He will continue to follow up with DM educator in the community and his primary care. He would like specific instructions on how to manage his blood sugar and when to take his medications. Primary nurse will review all medication with patient and instructions and management. Home Health will continue education as outpatient. Services Needed at Discharge: Home Health Care Services
--- NOTE | 2017-11-25 12:49 | CMDISCH_ITS ---
- If Service Date Differs Date of service: 11/25/17 Time of Service: 12:04 LACE Index Scoring Tool - Questions: Length of Stay (in days): 3 Acuity (Admit via E.D.?): Yes Comorbidities: Diabetes w/o Complication E.D. Visits: 2 - Answers: Total Score: 9 Risk of Readmission: Low Risk Care Management Discharge Reason for Hospitalization: Stroke r/o, DM type 2, New Atrial fib. Discharge Plan: Dino will be discharged home with new medication including insulin, and Eliquis. He will follow up with primary care and Lizzy Mendieta as outpatient at [facility] for DM management. CM left a voicemail for [facility], and Lizzy at [facility]. He has met with Jess Ruelas DM educator while inpatient. He owen have a new prescription for Eliquis, Lantus, glucometer, lancets, glucose monitor strips and pen needles. He has agreed to home health services for nursing he will need a face to face for new services. CM has provided contact information for follow up and questions after discharge. CM contacted Home Health and provided referral over the phone. Patient/Family Education Needs: Discharge education, limitations and follow up plan of care. CM reviewed DM education including symptoms of hypo and hyperglycemia. Dino is able to explain signs of hypoglycemia to CM. He will continue to follow up with DM educator in the community and his primary care. He would like specific instructions on how to manage his blood sugar and when to take his medications. Primary nurse will review all medication with patient and instructions and management. Home Health will continue education as outpatient. Services Needed at Discharge: Home Health Care Services
--- NOTE | 2017-11-25 13:45 | DSE_ITS ---
Date of service: 11/25/17 Time of Service: 13:32 DS: Diagnosis Discharge Diagnosis (1) Cerebellar lesion: Status: Acute (2) Atrial fibrillation: Status: Chronic (3) Essential hypertension: Status: Chronic (4) Depressive disorder: Status: Deleted (5) Diabetes mellitus: Status: Chronic (6) Alcohol intake above recommended sensible limits: Status: Chronic Discharge Plan Disposition Patient Disposition: HOME W/HOME HEALTH SERVICE Condition: Improving Discharge Details Reason For Visit: STROKE Admit Date/Time: 11/21/17 21:04 Admit Provider: Leno Mcdaniel Attending Provider: Leno Mcdaniel Primary Care Provider: Stephanie Romero Hospital Course Hospital Course: CC: Fatigue and malaise HPI: Interval history since last seen: 52 year old man with a PMHx significant for Binge type alcohol drinking behavior, uncontrolled DM, and recent admission for pancreatitis presents to [facility] Emergency Room with complaints of Fatigue and malaise. Mr. Guillermo presented to the hospital for evaluation of continued and ongoing malaise. He also was found to have hyperglycemia and appeared dehydrated. Secondary to the overall malaise and mild change in mental status, CT scan of the head was performed and showed a hypodensity in his left cerebellum which could represent a stroke but needed further investigations. He has had no history of CVA or heart disease in the past. Shortly after admission the patient was noted to become tachycardic, and an EKG was obtained showing either Afib or a multifocal atrial tachycardia. However, following deliberate slowing of the rhythm on telemetry there appeared to be clear evidence of Afib. Since that time the patient spontaneously converted back to sinus. Subsequent imaging showed no evidence of a CVA or other abnormality of the brain. Patient remains hyperglycemic despite initiation of insulin. No other events reported. Mr. Guillermo has remained afebrile while hospitalized. Hospital Course by Problem List: 1) Cerebellar lesion: Current visit: Yes Status: Acute Incidental finding of a cerebellar lesion concerning for CVA. Patient without any focal neurological complaints, not complaining of any dizziness or ataxia other than occasional upon standing. Initially concerning for thromboembolic process in the setting of new onset afib, MRI brain ruled out any acute abnormality, and appeared unremarkable and without evidence of an intracranial mass or infarct. (2) Atrial fibrillation: Current visit: Yes Status: Chronic Initial EKG with possible Afib vs. Multifocal Atrial Tachycardia - However , upon slowing the initial telemetry read appears to be Afib. ECHO checked and with normal LV function without significant valvulopathy. Patient tolerating low dose BB therapy. CHADSVASC2 score of 2 based on DM and HTN - Continue Apixaban as well. Patient spontaneously converted to sinus rhythm shortly after initial bout of Afib. Ensure Zio monitor on discharge. (3) Essential hypertension: Current visit: No Status: Chronic Currently on SHELDON-I and Clonidine. Initiated BB due to newly diagnosed Afib. CCB held with good blood pressure control. Recommend discontinuation of clonidine over time with uptitration of SHELDON-I and reinitiation of CCB if needed in the future. Monitor blood pressure. (4) Depressive disorder: Current visit: No Status: Deleted Continue home regimen of Wellbutrin and Buspar. (5) Diabetes mellitus: Current visit: No Status: Chronic Lantus initiated. Held metformin during hospitalization, but Glipizide was continued. Current significant hyperglycemia may be on the basis of recent inflammatory condition (pancreatitis). Infectious work-up negative, and patient did rule out for ACS with serial cardiac biomarkers. Initiated on Lantus. Attempt to titrate for improved control. Plan will be for discharge on 18 Units, with titration by 3 units every 3rd day and close monitoring of blood sugars until follow-up with PCP as outpatient. Goal for now is BS <150 ideally. Current blood sugars are in the 200-300 range. (6) Alcohol intake above recommended sensible limits: Current visit: No Status: Chronic Reports cessation of alcohol at home. Home Meds and New Rx's Prescriptions: New apixaban [Eliquis] 5 mg Tablet 5 mg PO BID Qty: 60 RF: 0 lisinopril 5 mg Tablet 5 mg PO DAILY Qty: 30 RF: 0 metoprolol tartrate 25 mg Tablet 25 mg PO Q12H Qty: 60 RF: 0 insulin glargine [Lantus Solostar U-100 Insulin] 100 unit/mL (3 mL) Insulin Pen 18 unit subcut HS Qty: 15 RF: 0 Continue allopurinol 300 mg tablet 300 mg PO DAILY RF: 0 buspirone 15 mg tablet 15 mg PO TID PRNRF: 0 clonidine HCl 0.2 mg tablet 0.2 mg PO BID RF: 0 glipizide 10 mg tablet extended release 24hr 10 mg PO DAILY RF: 0 metformin 1,000 mg tablet 1,000 mg PO BID RF: 0 tadalafil 5 mg tablet 5 mg PO ONCE PRNRF: 0 bupropion HCl 150 mg tablet extended release 24 hr 150 mg PO QAM Qty: 90 RF: 3 albuterol sulfate [Ventolin HFA] 8 GM HFA aerosol inhaler 2 puff Inhalation PRN PRNQty: 3 RF: 4 multivitamin [Daily Multi-Vitamin] 1 EACH tablet 1 ea PO DAILY RF: 0 furosemide 40 mg tablet 40 mg PO DAILY Qty: 3 RF: 0 pantoprazole 40 mg Tablet,Delayed Release (Dr/Ec) 40 mg PO DAILY@0730 30 Days Qty: 0 RF: 0 Discontinued amlodipine 5 mg Tablet 5 mg PO DAILY 30 Days Qty: 0 RF: 0 Discharge Instructions Instructions: Atrial Fibrillation (DC), Atrial Fibrillation (GEN), Diabetes Mellitus Type 2 in Adults (GEN) Additional Instructions: Please see your primary care doctor within 1 week of discharge. Please check your blood sugar before breakfast and before dinner. Call your primary if your blood sugar is consistently above 400 or ever below 80. Referrals: Venu Lovell [ [facility] STAFF PHYSICIAN] - 12/02/17 10:00 am Activity:: No strenuous activity Equipment/Supplies:: Blood Glucose Monitor, insulin/pen needles for glucometer, Discharge Orders Discharge Orders: Discharge Order (Routine); Ordered 11/25/17 Ordered By: Lewis Jean-Baptiste Exam Narrative Exam Narrative: Physical Exam on day prior to discharge: General: Patient appears comfortable, AAOX3, NAD Neck: Supple CV: Regular, nontachycardic, S1S2, No rubs, murmurs, or gallops. Pulmonary: Clear to auscultation bilaterally, no crackles, wheezing, or rhonchi Abdomen: + Bowel Sounds, soft, nontender, nondistended Vascular: No lower extremity edema Neurologic: CN II-XII grossly intact. No focal deficits. Patient moving all 4 extremities. Psych: Normal mood and affect. DS: Data Vitals/I&O Vitals and I&O: Vital Signs Temperature 36.7 C 11/25/17 11:45 Temperature Source Tympanic 11/25/17 11:45 Pulse 68 11/25/17 11:45 Pulse Rhythm Regular 11/25/17 08:48 Pulse 90 11/21/17 21:46 Respiratory Rate 18 11/25/17 11:45 Respiratory Effort 11/25/17 08:48 Respiratory Depth Normal 11/25/17 08:48 Respiratory Pattern Normal 11/25/17 08:48 Blood Pressure 108/75 11/25/17 11:45 Blood Pressure Mean 99 11/21/17 21:46 Blood Pressure Position Supine 11/21/17 18:06 Pulse Oximetry 97 11/25/17 11:45 Oxygen Delivery Method Room Air 11/25/17 11:45 Oxygen Flow Rate 0 11/25/17 11:45 Pain Level 4 11/25/17 10:15 Comment 11/25/17 11:45 Intake & Output 11/24/17 11/25/17 11/25/17 23:59 11:59 23:59 Intake Total 1778 / 1778 720 / 720 Balance 1778 / 1778 720 / 720 Weight 122.9 kg Intake: IV 998 / 998 30 / 30 Oral 780 / 780 690 / 690 Other: Urine Appearance Clear Clear Comment pt gets up to void AD YAIR. urine not assessed; pt voiding ad yair and denies GI/ Voiding Methods Toilet Toilet Pending studies at discharge: Alcohol detoxification (12/19/13) CRUCIATE LIG REPAIR NEC (06/10/04) Cardiovascular and hematopoietic scan and radioisotope function study (05/17/10) Cardiovascular stress test using treadmill (05/17/10) Detoxification Services for Substance Abuse Treatment (11/04/17) ELECTROCARDIOGRAM (06/04/04) KNEE ARTHROSCOPY (06/10/04) Monitoring of Cardiac Electrical Activity, External Approach (11/04/17) OTHER REPAIR OF KNEE (06/10/04) WBC 5.42 k/cumm (4.4-10.8) 11/25/17 06:30 RBC 3.83 m/cumm (4.50-6.00) L 11/25/17 06:30 Hgb 12.3 g/dL (13.5-17.5) L 11/25/17 06:30 Hct 38.0 % (40.0-50.0) L 11/25/17 06:30 MCV 99.2 fL (80-95) H 11/25/17 06:30 MCH 32.1 pg (27.0-33.0) 11/25/17 06:30 MCHC 32.4 g/dL (32.0-36.0) 11/25/17 06:30 RDW 13.1 % (11.8-14.1) 11/25/17 06:30 Plt Count 302 x1000/uL (130-400) 11/25/17 06:30 MPV 11.0 fL (8.0-11.0) 11/25/17 06:30 Immature Gran % 0.6 11/25/17 06:30 Neutrophils % 46.3 11/25/17 06:30 Lymphocytes % 39.1 11/25/17 06:30 Monocytes % 9.2 11/25/17 06:30 Eosinophils % 4.4 11/25/17 06:30 Basophils % 0.4 11/25/17 06:30 Absolute Neutrophils 2.51 k/cumm (1.2-6.7) 11/25/17 06:30 Absolute Lymphocytes 2.12 k/cumm (1.2-3.4) 11/25/17 06:30 Absolute Monocytes 0.50 k/cumm (0.11-0.7) 11/25/17 06:30 Absolute Eosinophils 0.24 k/cumm (0.0-0.7) 11/25/17 06:30 Absolute Basophils 0.02 k/cumm (0.0-0.2) 11/25/17 06:30 VBG pH 7.32 (7.32-7.43) 11/21/17 20:29 VBG pCO2 36 mm/Hg (34-47) 11/21/17 20:29 VBG pO2 47 mm/Hg (28-44) H 11/21/17 20:29 VBG HCO3 19 mmol/L (22-28) L 11/21/17 20:29 VBG Total CO2 17 mmol/L (22-29) L 11/21/17 20:29 VBG O2 Saturation 80 % (70-80) 11/21/17 20:29 VBG Base Excess mmol/L (-3-3) 11/21/17 20: Carboxyhemoglobin % 2.1 % 11/22/17 07:05 Sodium 133 mmol/L (136-145) L 11/25/17 06:30 Potassium 3.9 mmol/L (3.5-5.1) 11/25/17 06:30 Chloride 98 mmol/L (98-107) 11/25/17 06:30 Carbon Dioxide 24.4 mmol/L (21.0-32.0) 11/25/17 06:30 Anion Gap 10.6 mmol/L (3-11) 11/25/17 06:30 BUN 5 mg/dL (7-18) L 11/25/17 06:30 Creatinine 0.69 mg/dL (0.70-1.30) L 11/25/17 06:30 Estimated GFR/1.73 m2 >= 60.00 (mL/min/1.73m2) 11/25/17 06:30 Glucose 298 mg/dL (70-100) H 11/25/17 06:30 Calcium 9.0 mg/dL (8.5-10.1) 11/25/17 06:30 Magnesium 1.7 mg/dL (1.8-2.4) L 11/21/17 15:40 Total Bilirubin 0.7 mg/dL (0.2-1.0) 11/22/17 07:05 Conjugated Bilirubin 0.33 mg/dL (0.00-0.20) H 11/21/17 15:40 AST 41 U/L (15-37) H 11/22/17 07:05 ALT 33 U/L (12-78) 11/22/17 07:05 Alkaline Phosphatase 151 U/L (46-116) H 11/22/17 07:05 Troponin I < 0.02 ng/mL (0.00-0.06) 11/22/17 15:45 Total Protein 7.5 g/dL (6.4-8.2) 11/22/17 07:05 Albumin 2.7 g/dL (3.4-5.0) L 11/22/17 07:05 Triglycerides 161 mg/dL (30-150) H 11/22/17 07:05 Total Cholesterol 155 mg/dL (50-200) 11/22/17 07:05 LDL Cholesterol Direct 76 mg/dL (<100) 11/22/17 07:05 HDL Cholesterol 57 mg/dL (40-60) 11/22/17 07:05 Lipase 248 U/L (73-393) 11/21/17 15:40 TSH 2.49 uIU/mL (0.358-3.74) 11/22/17 07:05 Urine Color Yellow (Yellow) 11/21/17 19:34 Urine Clarity Clear 11/21/17 19:34 Urine pH 5.0 (5-8) 11/21/17 19:34 Ur Specific [place] 1.020 (1.005-1.025) 11/21/17 19:34 Urine Protein Negative mg/dL (Negative) 11/21/17 19:34 Urine Ketones >=160 mg/dL (Negative) 11/21/17 19:34 Urine Blood Negative (Negative) 11/21/17 19:34 Urine Nitrite Negative (Negative) 11/21/17 19:34 Urine Bilirubin Small (Negative) H 11/21/17 19:34 Urine Urobilinogen 0.2 EU/dL (Up TO 0.2) 11/21/17 19:34 Ur Leukocyte Esterase Negative (Negative) 11/21/17 19:34 Urine Glucose 500 mg/dL (Negative) H 11/21/17 19:34 Labs on day of discharge: Labs from last 24 hours 11/25/17 11/25/17 06:30 06:30 WBC 5.42 RBC 3.83 L Hgb 12.3 L Hct 38.0 L MCV 99.2 H MCH 32.1 MCHC 32.4 RDW 13.1 Plt Count 302 MPV 11.0 Immature Gran % 0.6 Neutrophils % 46.3 Lymphocytes % 39.1 Monocytes % 9.2 Eosinophils % 4.4 Basophils % 0.4 Absolute Neutrophils 2.51 Absolute Lymphocytes 2.12 Absolute Monocytes 0.50 Absolute Eosinophils 0.24 Absolute Basophils 0.02 Sodium 133 L Potassium 3.9 Chloride 98 Carbon Dioxide 24.4 Anion Gap 10.6 BUN 5 L Creatinine 0.69 L Estimated GFR/1.73 m2 >= 60.00 Glucose 298 H Calcium 9.0 Additional Comments Exam(s) NONCONTRAST HEAD CT: No priors. There is an area of decreased attenuation seen within the left cerebellar hemisphere. There is otherwise normal beckett white matter differentiation. The ventricles are intact. The basilar cisterns are patent. No acute intracranial hemorrhage, midline shift or mass effect is identified. The visualized paranasal sinuses are clear. The mastoid air cells are well pneumatized. The calvarium is intact. IMPRESSION: Area of decreased attenuation in the left cerebellar hemisphere. This may represent an acute infarct. Neoplasm or artifact cannot be excluded. Further evaluation with an MRI should be considered. PA AND LATERAL CHEST: Comparison is made with 07/31/15. The heart is normal in size. The lungs are clear. The mediastinal structures and pleura appear intact. CONCLUSION: Normal chest. Exam(s) a MRI:MR brain wo/w SYMPTOM/DIAGNOSIS: CEREBELLAR LESION WITH CHANGE IN MENTAL STATUS BRAIN MRI: Routine pre and post contrast examination. Comparison CT scan is 11/21/17. The ventricles and sulci are consistent with the patient's age. There is normal signal in the brain parenchyma. No intracranial mass or enhancing lesion is seen. The diffusion weighted images have a normal appearance. No findings to suggest an acute infarct are seen. No intracranial hemorrhage is present. The visualized paranasal sinuses are clear. The orbits and retro-orbital soft tissues are unremarkable. There is a normal flow void in the [place]. The pituitary gland is grossly unremarkable. IMPRESSION: No acute intracranial process. No evidence of an intracranial mass or acute infarct. Exam(s) Date of study: 11/23/2017 Transthoracic Echocardiography M-mode, complete 2D, complete spectral Doppler, and color Doppler *STUDY CONCLUSIONS* Summary: 1. Left ventricle: The cavity size was normal. Systolic function was hyperdynamic. The estimated ejection fraction was 65-70%. There was no evidence of elevated ventricular filling pressure by Doppler parameters. 2. Right ventricle: The cavity size was normal. Wall thickness was normal. Systolic function was normal. 3. Atrial septum: No defect or patent foramen ovale was identified. 4. Pulmonary arteries: Pulmonary systolic pressure was in the range of 15mm Hg to 25mm Hg. 5. Inferior vena cava: The vessel was normal in size. The respirophasic diameter changes were in the normal range (greater than or equal to 50%), consistent with normal central venous pressure.
--- NOTE | 2017-11-25 14:30 | HHF2F_ITS ---
1. Encounter Date and Reason I certify that VADIM WALSH was seen by Lewis Jean-Baptiste on 11/25/17 and that I had a [id number] encounter with this patient that meets the physician face to face encounter requirements. 2. Clinical Findings Supporting Skilled Need and Homebound Status I certify that home health services are medically necessary, include either intermittent senior care and/or physical/speech therapy, and that this patient is homebound in that absences from the home require considerable and taxing effort and are infrequent or of short duration, or are attributable to the need to receive medical care. [X] (a) Attached documentation from encounter provides clinical findings supporting skilled need and homebound status (including what assistance patient requires to leave the home). The encounter with the patient was in whole, or in part, for the following medical condition, which is the primary reason for home health care: Hyperglycemia, New Afib Senior Care: New Insulin use. Medication check. Blood Sugar monitoring. Physical Therapy: Speech Therapy: Homebound: 3. Certification and Authentication I certify that I composed the above information based on my clinical judgement relating to this patient's medical condition and, if applicable, clinical findings communicated to me by the NPP or inpatient physician who performed the Home Health Referral. All further orders will be obtained through (Community Based Physician - PCP)
--- NOTE | 2017-12-04 15:07 | TELEFU_ITS ---
Telephone follow up for Dino Guillermo who was hospitalized last week and started on basal insulin with newly diagnosed type 2 diabetes. He states he is currently taking 24 units Lantus. Blood sugars average 300s but today it was 260 up to 280 at lunch. He has minimal appetite and is not eating his full 60 grams carbohydrate. He sees his primary care provider next week. He has no unanswered questions. Encouraged to call for more diabetes support if he wishes and his provider supports outpatient self management. Please do not bill for this service.
--- NOTE | 2017-12-14 12:34 | ZIOP_ITS ---
CARDIAC - ZIO PATCH MONITOR DATE OF DICTATION 12/14/[address] 3 days, 18 hours, November 25 - 2017 INTERPRETATION Baseline rhythm sinus. Rare single PAC. 12 bursts SVT, longest 10-beat duration, fastest 160 beats per minute. Rare single PVC. No VT. No bradycardia or block. No triggered events. SYMPTOMS No symptoms. Average heart rate sinus 76 beats per minute, range 55 - 126 beats per minute. Adama Sahu M.D. MARY/belkis T - 12/14/2017
== END 2017-11-25 17:26 | disposition home health service (06) | DRG 948 ==
LOC: ER 21:49 → MS 11-22 10:20
PROVIDERS: Physician Assistant; Admitting Provider Family Medicine; Emergency Provider Student in an Organized Health Care Education/Training Program; PCP Family Medicine; Visit Provider Internal Medicine
DX: R90.89 Other abnormal findings on diagnostic imaging of central nervous system (principal); E11.65 Type 2 diabetes mellitus with hyperglycemia; E86.0 Dehydration; F10.10 Alcohol abuse, uncomplicated; I48.91 Unspecified atrial fibrillation; I10 Essential (primary) hypertension; F32.9 Major depressive disorder, single episode, unspecified; Z79.84 Long term (current) use of oral hypoglycemic drugs; E78.5 Hyperlipidemia, unspecified; Z63.79 Other stressful life events affecting family and household; Z71.3 Dietary counseling and surveillance
CPT/HCPCS: 36415; 36416; 70553; 80048; 80053; 80061; 80076; 82375; 82805; 82962; 83690; 83721; 85027; 93005; 93225; 96361; 96372; 99223; 99232; 99233; 99239; 99285; 70450; 71046; 81003; 83735; 84443; 84484; 85025; 93010; 93306; J1644

== ENCOUNTER 2017-12-02 11:08 | Outpatient (CLI) | payer BC, SELFPAY ==
[2017-12-02 13:11] LABS: GGT 230 U/L (15-85)
[2017-12-02 13:17] LABS: ALT 35 U/L (12-78); AST 50 U/L (15-37); Albumin 3.5 g/dL (3.4-5.0); Alkaline Phosphatase 91 U/L (46-116); Anion Gap 6.9 mmol/L (3-11); BUN 11 mg/dL (7-18); Bilirubin, Total 0.4 mg/dL (0.2-1.0); CO2 31.1 mmol/L (21.0-32.0); CREATININE 1.23 mg/dL (0.70-1.30); Calcium 9.6 mg/dL (8.5-10.1); Chloride 94 mmol/L (98-107); Glucose 473 mg/dL (70-100); Potassium 5.1 mmol/L (3.5-5.1); Sodium 132 mmol/L (136-145); Total Protein 7.1 g/dL (6.4-8.2)
[2017-12-02 13:22] LABS: Hemoglobin A1C 11.4 % (4.5-6.2)
[2017-12-02 13:27] LABS: HCT 39.8 % (40.0-50.0); HGB 12.9 g/dL (13.5-17.5); Mean Corp. HGB Concentration 32.4 g/dL (32.0-36.0); Mean Corpuscular Hemoglobin 32.4 pg (27.0-33.0); Mean Platelet Volume 11.1 fL (8.0-11.0); Platelet Count 241 x1000/uL (130-400); RBC 3.98 m/cumm (4.50-6.00); RBC Distribution Width 13.5 % (11.8-14.1); White Blood Cell Count 7.85 k/cumm (4.4-10.8)
== END 2017-12-02 11:28 ==
PROVIDERS: PCP Family Medicine; Visit Provider Family Medicine
DX: I10 Essential (primary) hypertension (principal); E78.5 Hyperlipidemia, unspecified; E11.9 Type 2 diabetes mellitus without complications; Z79.84 Long term (current) use of oral hypoglycemic drugs; F10.99 Alcohol use, unspecified with unspecified alcohol-induced disorder; I48.91 Unspecified atrial fibrillation; I95.89 Other hypotension
CPT/HCPCS: 36415; 80053; 85027; 82977; 83036

== ENCOUNTER 2017-12-14 15:55 | Outpatient (CLI) | payer BC, SELFPAY ==
--- NOTE | 2017-12-15 14:45 | DIABASSESS_ITS ---
DESCRIPTION/ASSESSMENT: Dino presents for nutrition consult for type 2 diabetes as follow up to recent hospitalization. Food Guidelines - Dino has cut back or eliminated grains and other starches and sweets. He mostly drinks water and flavored water. He has had a decrease in appetite and has had resulting weight loss. Physical Activity - Dino is active at work and feels this is enough at this time. Medication - takes 33 units Lantus as well as Metformin. He increases Lantus 3 units every 3 days Monitoring - A1c 11. He monitors blood sugars fasting. Continue to be in the low 200s. Coping - denies stress or depression other than situational and health related. INTERVENTION: DSME is provided based on patients interest and assessment of needs: Food Guidelines - reviewed food guide with suggestion for variety and encouraging vegetables with lunch. Physical Activity - discussed benefits and potential impact on blood sugars. Medication - discussed options available including [id number] and Incretin memetics. Discussed benefits and risks of each medication. He had mealtime insulin during hospitalization and he understands this is an option. He wishes to try SGLT2 inhibitor and understands if this is not tolerated or helpful, mealtime insulin is another option, up to 3 meals per day. Dino is engaged in the conversation and motivated to work toward improved glycemic results. ACTION PLAN: He will add vegetables to his lunch Suggest initialization of [id number] Jardiance for glycemic management Will follow up by telephone as a minimum.
== END 2017-12-14 16:15 ==
PROVIDERS: PCP Family Medicine; Visit Provider Dietitian, Registered
DX: E11.9 Type 2 diabetes mellitus without complications (principal); Z79.4 Long term (current) use of insulin; Z71.3 Dietary counseling and surveillance
CPT/HCPCS: 97802

== ENCOUNTER 2021-06-30 23:48 | Inpatient (IN) | payer BC, SELFPAY ==
[2021-06-30] MEDS: Normal Saline 1,000 ML 1000 ML IV (23:50)
[2021-06-30 23:57] VITALS: BP 166/93; PULSE 75; RESP 16; TEMP 36.1; O2SAT 96
[2021-07-01] VITALS (24 sets, daily range): BP systolic 151–176; BP diastolic 85–107; PULSE 62–76; RESP 11–20; TEMP 36–36.8; O2SAT 87–98
--- NOTE | 2021-07-01 | DI.CT_ITS ---
Exam(s) CT ABDOMEN PELVIS W EXAM: CT ABDOMEN PELVIS W CLINICAL HISTORY: Epigastric pain, hx pancreatitis. TECHNIQUE: Imaging Protocol: Axial computed tomography images with coronal and sagittal reformatted images were created and reviewed CONTRAST MATERIAL: Intravenous: Omnipaque 350 Contrast volume:100 ml Oral: yes / no FINDINGS: ABDOMEN: Lung Bases: Normal where visualized. Liver: Enlarged with marked fatty infiltration.. No measurable mass. Gallbladder and biliary tract: No radiodense calculus or dilation. Pancreas: Inflammation around the pancreas. Fluid collection at the distal body measuring 4.1 x 2.3 x 2.8 cm, mildly increased in size when compared with the previous exam. The tail of the pancreas is no longer seen. The inflammation causes wall thickening of the adjacent aspect of the stomach and d uodenum. There is no abnormal dilatation. There is no free air. Spleen: Normal. Kidneys: Normal size, contour and axis. No radiodense stones or obstructive uropathy. No masses seen. Adrenal glands: No masses seen. Abdominal Aorta: Abdominal portion non-dilated. Minimal atherosclerotic changes. Soft tissues: Mild bilateral gynecomastia. PELVIS: Bladder: No gross wall thickening. No calculi.No focal mass. Bowel: Scattered diverticulosis. No obstruction or bowel wall thickening. Appendix normal. Peritoneal cavity: Small amount of fluid seen near inferior border of liver and in low pelvis. Bones: Degenerative disc changes in the spine, greatest at L5-S1. Reproductive organs: Within normal limits. Lymph nodes: Unremarkable. Impression: Findings consistent with acute pancreatitis with adjacent inflammation of the inferior stomach and ad jacent duodenum.. Mild interval increase in of previously noted cyst near the distal body. Severe hepatic steatosis. RADIATION DOSE DELIVERED: 1,240.42mGy.cm Total DLP DATA REPOSITORY: All CT scans at this facility are submitted to the National Radiology Data Registry (NRDR) Dose Index Registry (DIR) with the [employer] (ACR). RADIATION OPTIMIZATION: All CT scans at this facility use at least one of these dose optimization te chniques: automated exposure control; mA and/or kV adjustment per patient size (includes targeted exa ms where dose is matched to clinical indication); or iterative reconstruction.
[2021-07-01] MEDS: HYDROmorphone 2 MG/ML VIAL 1 MG IVP (00:32)
[2021-07-01 00:33] LABS: Abs Immature Grans 0.01 10^3/uL (0.0-0.06); Absolute Basophil Count 0.02 10^3/uL (0.0-0.2); Absolute Eosinophil Count 0.02 10^3/uL (0.0-0.7); Absolute Lymphocyte Count 1.36 10^3/uL (1.2-3.4); Absolute Monocyte Count 0.83 10^3/uL (0.1-0.8); Absolute Neutrophil Count 3.54 10^3/uL (1.2-6.7); Basophils % 0.3; Eosinophils % 0.3; HCT 43.3 % (40.0-50.0); HGB 15.1 g/dL (13.5-17.5); Immature Grans % 0.2; Lymphocytes % 23.5; MCH 35.7 pg (27.0-33.0); MCHC 34.9 % (32.0-36.0); MCV 102 fL (80-95); MPV 9.6 fL (8.0-11.0); Monocytes % 14.4; Neutrophils % 61.3; RBC 4.23 10^6/uL (4.36-5.78); RDW 12.9 % (11.8-14.1); RDW-SD 48.2 fL; WBC 5.78 10^3/uL (4.4-10.8)
[2021-07-01] MEDS: Ondansetron 4 MG/2 ML VIAL IVP ×5 (00:35→20:17)
[2021-07-01 00:45] LABS: Diff Comment PLT Morph Reviewed; Platelet Count 89 10^3/uL (130-400); RBC Morphology Normal
--- NOTE | 2021-07-01 00:45 | W.ED.GENAD ---
Discharge Plan Disposition Patient Disposition: [facility] INPATIENT Condition: Stable Discharge Details Clinical Impression: Acute pancreatitis Primary Care Provider: Janessa Cantrell ED Provider: Michael Mcfarlane Home Meds and New Rx's Prescriptions: No Action aspirin 81 mg tablet,delayed release (DR/EC) 81 mg PO DAILY Qty: 90 3RF Basaglar KwikPen U-100 Insulin 100 unit/mL (3 mL) insulin pen 40 unit SC QHS 0RF metoprolol tartrate 25 mg tablet 25 mg PO Q12H Qty: 180 3RF tadalafil 10 mg tablet 10 mg PO ONCE PRN (Reason: sexual activity) Qty: 10 3RF multivitamin [Daily Multi-Vitamin] 1 EACH tablet 1 ea PO DAILY 0RF (DME) FreeStyle Test strip See Dose Instructions .ROUTE .MEDSUPPLY Qty: 360 3RF Dose Instruction: As directed Rx Instructions: qid buspirone 15 mg tablet 15 mg PO TID PRN (Reason: anxiety) Qty: 90 11RF Hold Instructions: not effective (DME) BD AutoShield Duo Pen Needle 30 gauge x 3/16 needle See Dose Instructions .ROUTE .MEDSUPPLY Qty: 100 3RF Dose Instruction: As directed Rx Instructions: test once/day allopurinol 300 mg tablet 300 mg PO DAILY Qty: 10 0RF clonidine HCl 0.1 mg tablet 0.1 mg PO Q12H Qty: 20 0RF metronidazole 0.75 % cream 1 applic TP QHS Qty: 45 0RF metformin 1,000 mg tablet 1,000 mg PO BID Qty: 180 0RF Jardiance 25 mg tablet 25 mg PO QAM Qty: 90 0RF Medical Decision Making 55-year-old male presents from home. He complains of burning epigastric pain that began yesterday. Is in association with some increased alcohol use. He has a previous history of pancreatitis. He has reassuring vital signs, exam does reveal some tenderness in the epigastrium. Given the patient's history, concern for pancreatitis, gastritis. Patient placed on cardiac nurse and screening labs obtained and is referred for CT imaging. Patient's laboratories note a white count of 5, hematocrit 43, platelets 89. Sodium 135 potassium 3.4, chloride 96, BUN 9, creatinine 0.7, AST 97, ALT 64, lipase 3933. CT with evidence of pancreatitis. Following fluids and analgesic, the patient is improving. Magnesium was supplemented in the emergency department. The patient will require admission for further management of acute pancreatitis. HPI General Mode of arrival: ambulatory. Date/Time Provider Initiated Documentation: 06/30/21 23:49. Limitations to Documentation: no limitations. Information obtained by: patient. History of Present Illness 55 year old M presents to the emergency department with the chief complaint of Epigastric pain, similar to previous pancreatitis, described as moderate and similar to prior episodes, Quality is described as dull and constant, and is localized to the abdomen. Patient reports no radiation. Patient started experiencing this hour(s) and it has been constant. improves with No relieving factors improve symptom(s), No exacerbating factors reported . Patient notes denies headaches and weakness. Patient did receive the following treatments prior to arrival, none Related Data Home Medications Medication Instructions Recorded Confirmed multivitamin (Daily Multi-Vitamin) 1 ea PO DAILY 10/29/16 07/01/21 blood sugar diagnostic (FreeStyle #360 each 12/29/17 04/26/21 Test) buspirone 15 mg tablet 15 mg PO TID PRN #90 tab 09/07/20 04/26/21 aspirin 81 mg tablet,delayed 81 mg PO DAILY #90 tab 11/14/20 07/01/21 release insulin glargine 100 unit/mL (3 40 unit SC QHS ml 04/26/21 07/01/21 mL) subcutaneous pen (Basaglar KwikPen U-100 Insulin) metoprolol tartrate 25 mg tablet 25 mg PO Q12H #180 tab 04/26/21 07/01/21 tadalafil 10 mg tablet 10 mg PO ONCE PRN #10 tab 04/26/21 07/01/21 allopurinol 300 mg tablet 300 mg PO DAILY #10 tab 06/03/21 07/01/21 clonidine HCl 0.1 mg tablet 0.1 mg PO Q12H #20 tab 06/03/21 07/01/21 metronidazole 0.75 % topical cream 1 applic TP QHS #45 gm 06/03/21 07/01/21 pen needle,diabetic dual safty 30 #100 each 06/03/21 gauge x 3/16 (BD AutoShield Duo Pen Needle) empagliflozin 25 mg tablet 25 mg PO QAM #90 tab 06/17/21 07/01/21 (Jardiance) metformin 1,000 mg tablet 1,000 mg PO BID #180 tab 06/17/21 07/01/21 Previous Rx's Medication Instructions Recorded blood sugar diagnostic (FreeStyle #360 each 12/29/17 Test) buspirone 15 mg tablet 15 mg PO TID PRN #90 tab 09/07/20 aspirin 81 mg tablet,delayed 81 mg PO DAILY #90 tab 11/14/20 release metoprolol tartrate 25 mg tablet 25 mg PO Q12H #180 tab 04/26/21 tadalafil 10 mg tablet 10 mg PO ONCE PRN #10 tab 04/26/21 allopurinol 300 mg tablet 300 mg PO DAILY #10 tab 06/03/21 clonidine HCl 0.1 mg tablet 0.1 mg PO Q12H #20 tab 06/03/21 metronidazole 0.75 % topical cream 1 applic TP QHS #45 gm 06/03/21 pen needle,diabetic dual safty 30 #100 each 06/03/21 gauge x 3/16 (BD AutoShield Duo Pen Needle) empagliflozin 25 mg tablet 25 mg PO QAM #90 tab 06/17/21 (Jardiance) metformin 1,000 mg tablet 1,000 mg PO BID #180 tab 06/17/21 Allergies Allergy/AdvReac Type Severity Reaction Status Date / Time morphine AdvReac Intermediate Narcotic Verified 06/30/21 23:59 induced constipation General Stated Complaint: Abd Prob DELMY: 3 Review of Systems Narrative: Some increased alcohol use recently. Denies vomiting today. No loose stool. 8 systems reviewed and otherwise negative PFSH All Active Problems (Updated 07/01/21 @ 03:32 by Michael Mcfarlane MD) Acute pancreatitis (Acute) Pancreatitis (Chronic) Anxiety disorder (Chronic) Onychomycosis (Acute) on fingers and toes; declines to treat due to possible medication side effects. Alcohol intake above recommended sensible limits (Chronic) Tobacco dependence due to chewing tobacco (Acute) Rosacea (Acute) Male erectile disorder (Chronic) normal testosterone Hyperlipidemia (Chronic 07/15/12) Essential hypertension (Chronic 01/10/13) Pancreatic pseudocyst (Acute) Diabetes mellitus (Chronic) Erectile dysfunction (Chronic) Medical History Acute pancreatitis (12/19/13) 12/20/13,11/04/17 Atrial fibrillation Stable. History during hospitalization in 2018, negative Zio patch for 48 hrs. Cerebellar lesion ruled out with MRI Depression a. inpatient admission Ileus Pancreatitis Surgical History H/O arthroscopy of right knee Family History Grandfather , [place] at age 54. 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 Pleasant, well groomed, interactive. HEAD: Normocephalic, atraumatic ENT: Mucous membranes moist, oropharynx unremarkable, External ear exam unremarkable EYES: PERRL, EOMI NECK: Full ROM, no WOLF, no menigismus CHEST/RESP: Nontender, clear to auscultation bilateral, no wheeze/rhonchi/rales CARDIOVASCULAR: RRR, no murmur, rub diane. 2+ Rad pulse bilateral ABDOMEN: Soft, tender in epigastrium, no mass. +Bowel sounds EXT: Full ROM, no edema, no rash Neuro: Grossly normal neurologic exam, conversant, interactive. Psych: Speech fluent, thoughts congruent, affect normal Course Vital Signs Vital signs: Vital Signs Temperature 36.1 C L 06/30/21 23:57 Pulse 75 06/30/21 23:57 Respiratory Rate 16 06/30/21 23:57 Blood Pressure 166/93 H 06/30/21 23:57 Pulse Oximetry 96 06/30/21 23:57 Temperature 36.1 C L 07/01/21 00:35 Temperature Source Temporal Artery Scan 07/01/21 00:35 Pulse 74 07/01/21 00:35 Respiratory Rate 18 07/01/21 00:35 Respiratory Effort Non-Labored 07/01/21 00:01 Blood Pressure 151/92 H 07/01/21 00:35 Pulse Oximetry 97 07/01/21 00:35 Oxygen Delivery Method Room Air 07/01/21 00:35 Oxygen Flow Rate 0 07/01/21 00:35 Pain Level 9 07/01/21 00:35 PAWSS Have you Been Recently Intoxicated or Drunk Within the Last 30 days?: No Have you Ever Experienced Previous Episodes of Alcohol Withdrawal?: No Have you ever Experienced Withdrawal Seizures?: No Have you ever Experienced Delirium Tremens(DT)s?: No Have you ever undergone Alcohol Rehabilitation Treatment (i.e, inpt ot outpatient treatment programs)?: No Have you ever Experienced Blackouts?: No Have you ever Combined Alcohol with other Downers within the last 90 days?: No Have you ever Combined Alcohol with any other Substance of Abuse during the last 90 days?: No Positive Blood Alcohol level on Presentation? [PCS.BAL]: No Evidence of Increased Autonomic Activity (i.e. HR>120, tremor, sweating, agitation, nausea)?: No Result: 0
[2021-07-01 00:53] LABS: ALT 64 U/L (16-63); AST 97 U/L (15-37); Albumin 3.8 g/dL (3.4-5.0); Alkaline Phosphatase 77 U/L (46-116); Anion Gap 8.9 mmol/L (3-11); BUN 9 mg/dL (7-18); Bilirubin, Total 1.4 mg/dL (0.2-1.0); CO2 30.1 mmol/L (21.0-32.0); CREATININE 0.7 mg/dL (0.70-1.30); Calcium 9.7 mg/dL (8.5-10.1); Chloride 96 mmol/L (98-107); Glucose 134 mg/dL (74-106); Magnesium 1.3 mg/dL (1.8-2.4); Potassium 3.4 mmol/L (3.5-5.1); Sodium 135 mmol/L (136-145); Total Protein 7.5 g/dL (6.4-8.2)
[2021-07-01] MEDS: Omnipaque 350 MG/ML 100 ML BTL IJ (00:55)
[2021-07-01 01:19] LABS: Lipase 3933 U/L (73-393)
--- NOTE | 2021-07-01 02:05 | DI.VRAD_ITS ---
PROCEDURE INFORMATION: Exam: CT Abdomen And Pelvis With Contrast Exam date and time: 07/01/2021 12:47 AM Age: 55 years old Clinical indication: Abdominal pain; Epigastric pain, HX pancreatitis TECHNIQUE: Imaging protocol: Computed tomography of the abdomen and pelvis with contrast. Radiation optimization: All CT scans at this facility use at least one of these dose optimization techniques: automated exposure control; mA and/or kV adjustment per patient size (includes targeted exams where dose is matched to clinical indication); or iterative reconstruction. Contrast material: OMNIPAQUE 350; Contrast volume: 100 ml; Contrast route: INTRAVENOUS (IV); COMPARISON: CT ABDOMEN PELVIS WITH CONTRAST (Adult) 11/04/2017 1:07 PM FINDINGS: Lungs: No acute infiltrate in either lung base. Liver: Liver fatty infiltration. Gallbladder and bile ducts: Normal. No calcified stones. No ductal dilation. Pancreas: Pancreatic head / body peripancreatic stranding / fluid indicating acute pancreatitis. Compared to 11/04/2017, mild interval increase in size of complex cyst involving the distal pancreatic body region (currently 4.1 x 2.3 x 2.8 cm / previously 3.3 x 1.9 x 2.8 cm). Pancreatic tail not visualized. Spleen: Normal. No splenomegaly. Adrenal glands: Normal. No mass. Kidneys and ureters: Normal. No hydronephrosis. Stomach and bowel: Scattered colon diverticuli without evidence of diverticulitis. No generalized ileus or bowel obstruction. Appendix: Normal appendix. Intraperitoneal space: No free air. No significant fluid collection. Vasculature: Unremarkable. No abdominal aortic aneurysm. Lymph nodes: No enlarged lymph nodes. Urinary bladder: Unremarkable as visualized. Reproductive: Prostate gland is normal in size. Vas deferens calcification. Bones/joints: Spinal degenerative changes. Spinal degenerative changes. Soft tissues: Unremarkable. IMPRESSION: 1. Pancreatic head / body peripancreatic stranding / fluid indicating acute pancreatitis. 2. Compared to 11/04/2017, mild interval increase in size of complex cyst involving the distal pancreatic body region (currently 4.1 x 2.3 x 2.8 cm / previously 3.3 x 1.9 x 2.8 cm). 3. Liver fatty infiltration. 4. Scattered colon diverticuli without evidence of diverticulitis. Dictated and Authenticated by: Gaston Pabon MD. Ordering:MARYCARMEN Rodriguez MD
--- NOTE | 2021-07-01 02:37 | W.PM.HP.N ---
Date of service: 07/01/21 Time of Service: 02:38 Assessment and Plan Assessment and plan (1) Pancreatitis: Status: Chronic Assessment and plan: Pancreatitis, alcohol induced. Will have NPO, IVF and prn analgesics and antiemetics, and track lipase. As to alcohol, the pattern of labs suggests this may be more regular than reported, but in any case will give banana bag and place on CIWA and track platelets and chemistries. 1. Pancreatitis: NPO, IVF, prn analgesics 2. EtOH: banana bag, CIWA, track labs 3. DM (type 2): hold meds, sliding scale coverage 4. 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 In ER findings of note for normal white count, lipase [address] showing peripancreatic stranding, no stones.. Other labs show platelet 89, Na 135, K 3,4, Mg 1.3, TBili 1.4, AST 97, AST 64, Ca 9.7. Patient given Dilaudid 1.5 in cumulative doses with effect, along with Zofran and 2 gm MgSo4. I was asked to evaluate for admission. Patient reports he drinks one drink per night, with occasional heavier amounts. States pain is coming back at this time and requesting repeat dose analgesic. States today's episode is identical to prior bouts of pancreatitis. Review of Systems Narrative: per HPI PFSH All Active Problems (Updated 07/01/21 @ 02:49 by Leno Briceño MD) Pancreatitis (Chronic) Anxiety disorder (Chronic) Onychomycosis (Acute) on fingers and toes; declines to treat due to possible medication side effects. Alcohol intake above recommended sensible limits (Chronic) Tobacco dependence due to chewing tobacco (Acute) Rosacea (Acute) Male erectile disorder (Chronic) normal testosterone Hyperlipidemia (Chronic 07/15/12) Essential hypertension (Chronic 01/10/13) Pancreatic pseudocyst (Acute) Diabetes mellitus (Chronic) Erectile dysfunction (Chronic) Medical History Acute pancreatitis (12/19/13) 12/20/13,11/04/17 Atrial fibrillation Stable. History during hospitalization in 2018, negative Zio patch for 48 hrs. Cerebellar lesion ruled out with MRI Depression a. inpatient admission Ileus Pancreatitis Surgical History H/O arthroscopy of right knee Family History Grandfather , [place] at age 54. 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 [employer] What is your relationship status?: Panel score (0-1 are the most socially isolated patients): 0 What type of physical activity do you participate in: walking Do you feel safe in your relationship?: Yes Meds Allergies and Home Medications Allergies Allergy/AdvReac Type Severity Reaction Status Date / Time morphine AdvReac Intermediate Narcotic Verified 06/30/21 23:59 induced constipation Home Medications Medication Instructions Recorded Confirmed Type multivitamin (Daily Multi-Vitamin) 1 ea PO DAILY 10/29/16 07/01/21 History blood sugar diagnostic (FreeStyle #360 each 12/29/17 04/26/21 Rx Test) buspirone 15 mg tablet 15 mg PO TID PRN #90 tab 09/07/20 04/26/21 Rx aspirin 81 mg tablet,delayed 81 mg PO DAILY #90 tab 11/14/20 07/01/21 Rx release insulin glargine 100 unit/mL (3 40 unit SC QHS ml 04/26/21 07/01/21 History mL) subcutaneous pen (Zulay Becerra U-100 Insulin) metoprolol tartrate 25 mg tablet 25 mg PO Q12H #180 tab 04/26/21 07/01/21 Rx tadalafil 10 mg tablet 10 mg PO ONCE PRN #10 tab 04/26/21 07/01/21 Rx allopurinol 300 mg tablet 300 mg PO DAILY #10 tab 06/03/21 07/01/21 Rx clonidine HCl 0.1 mg tablet 0.1 mg PO Q12H #20 tab 06/03/21 07/01/21 Rx metronidazole 0.75 % topical cream 1 applic TP QHS #45 gm 06/03/21 07/01/21 Rx pen needle,diabetic dual safty 30 #100 each 06/03/21 Rx gauge x 3/16 (BD AutoShield Duo Pen Needle) empagliflozin 25 mg tablet 25 mg PO QAM #90 tab 06/17/21 07/01/21 Rx (Jardiance) metformin 1,000 mg tablet 1,000 mg PO BID #180 tab 06/17/21 07/01/21 Rx Exam Narrative Exam Narrative: 162/89, 73, 36.1, 11-18, 87-96% RA recorded (94% during visit). HEENT neg icterus; neck supple; lungs clear; heart RRR; abndomen +BS, soft and NT; extremities w/o edema; neuro Ox3, lucid, non-focal Results Labs Result diagrams: 07/01/21 00:20 07/01/21 00:20 Labs: Laboratory Results - last 24 hr 07/01/21 07/01/21 00:20 00:20 WBC 5.78 RBC 4.23 L Hgb 15.1 Hct 43.3 MCV 102 H MCH 35.7 H MCHC 34.9 RDW 12.9 Plt Count 89 L MPV 9.6 Immature Gran % 0.2 Neutrophils % 61.3 Lymphocytes % 23.5 Monocytes % 14.4 Eosinophils % 0.3 Basophils % 0.3 Nucleated RBC % 0.0 Absolute Neutrophils 3.54 Absolute Lymphocytes 1.36 Absolute Monocytes 0.83 H Absolute Eosinophils 0.02 Absolute Basophils 0.02 RBC Morphology Normal Sodium 135 L Potassium 3.4 L Chloride 96 L Carbon Dioxide 30.1 Anion Gap 8.9 BUN 9 Creatinine 0.7 Estimated GFR/1.73 m2 >= 60.00 Glucose 134 H Calcium 9.7 Magnesium 1.3 L Total Bilirubin 1.4 H AST 97 H ALT 64 H Alkaline Phosphatase 77 Total Protein 7.5 Albumin 3.8 Lipase 3933 H Last Vital Signs Temp 36.1 C L 07/01/21 00:35 Pulse 74 07/01/21 00:35 Resp 18 07/01/21 00:35 BP 151/92 H 07/01/21 00:35 Pulse Ox 97 07/01/21 00:35 PAWSS Have you Been Recently Intoxicated or Drunk Within the Last 30 days?: No Have you Ever Experienced Previous Episodes of Alcohol Withdrawal?: No Have you ever Experienced Withdrawal Seizures?: No Have you ever Experienced Delirium Tremens(DT)s?: No Have you ever undergone Alcohol Rehabilitation Treatment (i.e, inpt ot outpatient treatment programs)?: No Have you ever Experienced Blackouts?: No Have you ever Combined Alcohol with other Downers within the last 90 days?: No Have you ever Combined Alcohol with any other Substance of Abuse during the last 90 days?: No Positive Blood Alcohol level on Presentation? [PCS.BAL]: No Evidence of Increased Autonomic Activity (i.e. HR>120, tremor, sweating, agitation, nausea)?: No Result: 0
[2021-07-01] MEDS: HYDROmorphone 2 MG/ML VIAL 0.5 MG IVP (02:51)
[2021-07-01] MEDS: MAGNESIUM SULFATE 2 GM/50 ML BAG IVPB (02:55)
[2021-07-01 03:47] LABS: Source Nasal/Nares
[2021-07-01] MEDS: MAGNESIUM SULFATE 8.12 MEQ, MULTIVITAMIN 10 ML, THIAMINE 100 MG, FOLIC ACID 1 MG in Nor... 168.867 MG IV (04:39)
[2021-07-01] MEDS: Lactated Ringers 1,000 ML 150 ML IV ×3 (05:04→20:03)
[2021-07-01 06:07] LABS: HCT 42.3 % (40.0-50.0); HGB 14.2 g/dL (13.5-17.5); MCH 35.3 pg (27.0-33.0); MCHC 33.6 % (32.0-36.0); MCV 105 fL (80-95); MPV 9.5 fL (8.0-11.0); RBC 4.02 10^6/uL (4.36-5.78); RDW-SD 50.8 fL; WBC 5.44 10^3/uL (4.4-10.8)
[2021-07-01 06:45] LABS: ALT 56 U/L (16-63); AST 74 U/L (15-37); Lipase 1401 U/L (73-393)
[2021-07-01 07:02] LABS: Platelet Count 79 10^3/uL (130-400)
[2021-07-01] MEDS: HYDROmorphone 2 MG/ML SYR IVP (07:40)
[2021-07-01] MEDS: Normal Saline Flush 10 ML SYR IVP ×2 (07:41→13:15)
[2021-07-01] MEDS: Metoprolol 25 MG TAB PO ×2 (07:42→20:16)
[2021-07-01] MEDS: cloNIDine 0.1 MG TAB PO ×2 (07:42→20:16)
[2021-07-01] MEDS: Aspirin E.C. 81 MG TABEC PO (07:42)
[2021-07-01] MEDS: Allopurinol 300 MG TAB PO (07:43)
[2021-07-01] MEDS: Ketorolac 15 MG/ML VIAL IVP ×3 (10:12→21:36)
[2021-07-01] MEDS: THIAMINE 100 MG in Normal Saline 100 ML 192.381 MG IVPB ×2 (10:37→17:35)
[2021-07-01] MEDS: HYDROmorphone 2 MG/ML SYR 1 MG IVP ×2 (13:15→20:17)
[2021-07-01 13:16] LABS: COVID-19 PCR Negative (Negative)
--- NOTE | 2021-07-01 14:03 | W.PM.PROGNOT ---
Date of Service Date of service: 07/01/21 Time of Service: 14:03 Assessment and Plan Assessment and plan (1) Pancreatitis: Status: Chronic Assessment and plan: Pancreatitis, alcohol induced. Clear fluids, IVF and prn analgesics and antiemetics, and track lipase. Continue CIWA 1. Pancreatitis: NPO, IVF, prn analgesics - changed to toradol and acetaminophen 2. EtOH: CIWA, track labs 3. DM (type 2): hold meds, sliding scale coverage 4. HTN: usual meds Subjective Subjective Patient reports: feels better, pain is less, tolerating liquids well, voiding w/o difficulty, bowel movement and nausea; denies blood in stool, vomiting, shortness of breath or fever Exam Narrative Exam Narrative: Chest Chest: normal inspection of the chest Resp Effort & Inspection: normal respiratory effort Cardio Jugular venous pressure: no JVD GI Inspection: distended and obesity Palpation: soft Percussion: normal to percussion Auscultation: hyperactive bowel sounds Skin General skin exam: no rashes or lesions noted Neuro General: patient alert, patient awake and patient oriented x3 Cranial Nerves: CN's II-XI intact bilaterally Cognition: normal cognition Speech: speech normal Gait: normal gait Motor: muscle tone normal throughout Sensory Exam: no sensory deficits noted Extrem General: normal to inspection Right upper extremity: normal to inspection Left upper extremity: normal to inspection Right lower extremity: normal to inspection, full ROM and normal capillary refill; No no cyanosis and no edema Left lower extremity: normal to inspection, full ROM and normal capillary refill; No no cyanosis and no edema Psych Appearance: grossly normal Mental Status: mental status grossly normal Speech and Movement: speech and movement normal Mood: congruent mood Affect: normal affect Attitude: cooperative Thought Process: normal Thought Content: normal Insight: insight good Judgment: judgment good Objective Last Vital Signs Temp 36.7 C 07/01/21 07:49 Pulse 74 07/01/21 07:49 Resp 20 07/01/21 07:49 BP 157/85 H 07/01/21 07:49 Pulse Ox 96 07/01/21 07:49 Laboratory Results - last 24 hr 07/01/21 07/01/21 07/01/21 00:20 00:20 03:45 WBC 5.78 RBC 4.23 L Hgb 15.1 Hct 43.3 MCV 102 H MCH 35.7 H MCHC 34.9 RDW 12.9 Plt Count 89 L MPV 9.6 Immature Gran % 0.2 Neutrophils % 61.3 Lymphocytes % 23.5 Monocytes % 14.4 Eosinophils % 0.3 Basophils % 0.3 Nucleated RBC % 0.0 Absolute Neutrophils 3.54 Absolute Lymphocytes 1.36 Absolute Monocytes 0.83 H Absolute Eosinophils 0.02 Absolute Basophils 0.02 RBC Morphology Normal Sodium 135 L Potassium 3.4 L Chloride 96 L Carbon Dioxide 30.1 Anion Gap 8.9 BUN 9 Creatinine 0.7 Estimated GFR/1.73 m2 >= 60.00 Glucose 134 H Calcium 9.7 Magnesium 1.3 L Total Bilirubin 1.4 H AST 97 H ALT 64 H Alkaline Phosphatase 77 Total Protein 7.5 Albumin 3.8 Lipase 3933 H COVID-19 Source Nasal/Nares SARS-CoV-2 (PCR) Negative 07/01/21 07/01/21 05:50 05:50 WBC 5.44 RBC 4.02 L Hgb 14.2 Hct 42.3 MCV 105 H MCH 35.3 H MCHC 33.6 D RDW 13.0 Plt Count 79 L MPV 9.5 Immature Gran % Neutrophils % Lymphocytes % Monocytes % Eosinophils % Basophils % Nucleated RBC % Absolute Neutrophils Absolute Lymphocytes Absolute Monocytes Absolute Eosinophils Absolute Basophils RBC Morphology Sodium Potassium Chloride Carbon Dioxide Anion Gap BUN Creatinine Estimated GFR/1.73 m2 Glucose Calcium Magnesium Total Bilirubin AST 74 H ALT 56 Alkaline Phosphatase Total Protein Albumin Lipase 1401 H COVID-19 Source SARS-CoV-2 (PCR) Reviewed Pertinent PMH: Yes PAWSS Have you Been Recently Intoxicated or Drunk Within the Last 30 days?: No Have you Ever Experienced Previous Episodes of Alcohol Withdrawal?: No Have you ever Experienced Withdrawal Seizures?: No Have you ever Experienced Delirium Tremens(DT)s?: No Have you ever undergone Alcohol Rehabilitation Treatment (i.e, inpt ot outpatient treatment programs)?: Yes Have you ever Experienced Blackouts?: Yes Have you ever Combined Alcohol with other Downers within the last 90 days?: No Have you ever Combined Alcohol with any other Substance of Abuse during the last 90 days?: No Positive Blood Alcohol level on Presentation? [PCS.BAL]: No Evidence of Increased Autonomic Activity (i.e. HR>120, tremor, sweating, agitation, nausea)?: No Result: 2
--- NOTE | 2021-07-01 14:20 | PDOC.CMIN ---
- If Service Date Differs Date of service: 07/01/21 Time of Service: 14:20 Care Management Initial Assess REASON FOR HOSPITALIZATION:: Pancreatitis PAST MEDICAL HISTORY/PAST SURGICAL HISTORY:: All Active Problems. Pancreatitis (Chronic). Anxiety disorder (Chronic). Onychomycosis (Acute). on fingers and toes; declines to treat due to possible medication side effects. Alcohol intake above recommended sensible limits (Chronic). Tobacco dependence due to chewing tobacco (Acute). Rosacea (Acute). Male erectile disorder (Chronic). normal testosterone. Hyperlipidemia (Chronic 07/15/12). Essential hypertension (Chronic 01/10/13). Pancreatic pseudocyst (Acute). Diabetes mellitus (Chronic). Erectile dysfunction (Chronic). Medical History. Acute pancreatitis (12/19/13). 12/20/13,11/04/17. Atrial fibrillation. Stable. History during hospitalization in 2018, negative Zio patch for 48 hrs. Cerebellar lesion. ruled out with MRI. Depression. a. inpatient admission. Ileus. Pancreatitis. Surgical History. 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 Dino states that he has family and friends locally whom are supportive. He is independent at baseline, drives, and manages [employer]'s. CURRENT FUNCTIONAL STATUS:: Blayne was sitting up in bed when CM met with him. He stated that he is still in a lot of pain, but that it is being managed well by staff. He reported that per provider, he will be ready for discharge once he can tolerate a regular diet. Per report, he is currently NPO, and is being monitored on CIWA. Blayne stated that he is keeping his family updated. CM will continue to follow. ADVANCE DIRECTIVES:: None on file. Has patient been provided with info about the portal/API?: Yes Did the patient sign up for the portal?: No CODE STATUS:: Full Code INSURANCE COVERAGE / FINANCIAL ISSUES:: BCBS CURRENT HOME/COMMUNITY SERVICES/EQUIPMENT:: No current services or equipment. PRIMARY CARE PHYSICIAN:: Janessa Cantrell POTENTIAL DISCHARGE NEEDS:: Evaluations for further needs, follow up appointments. PATIENT/FAMILY EDUCATION NEEDS:: Review discharge instructions regarding activity levels and medications, discussion of self care needs including ask me three. ANTICIPATED BARRIERS TO DISCHARGE:: None identified. TRANSPORTATION:: Via private vehicle by family. PLAN:: Anticipate Blayne will return home once medically cleared. He will be driven home via private vehicle by family. He will follow up with his PCP and discharge plan of care. CM will continue to follow.
[2021-07-01] MEDS: Normal Saline 500 ML 30 ML IV (15:06)
[2021-07-01] MEDS: MAGNESIUM SULFATE 4 GM/100 ML BAG IVPB (15:07)
[2021-07-01] MEDS: ACETAMINOPHEN 1,000 MG/100 ML BTL 400 MG IVPB (18:01)
[2021-07-02] MEDS: Ondansetron 4 MG/2 ML VIAL IVP (00:26)
[2021-07-02] MEDS: HYDROmorphone 2 MG/ML SYR 1 MG IVP ×3 (00:27→14:28)
[2021-07-02] MEDS: Lactated Ringers 1,000 ML 150 ML IV ×3 (02:51→16:50)
[2021-07-02] MEDS: THIAMINE 100 MG in Normal Saline 100 ML 192.381 MG IVPB ×3 (02:52→17:39)
[2021-07-02] MEDS: Ketorolac 15 MG/ML VIAL IVP ×3 (03:00→15:44)
[2021-07-02] MEDS: LORazepam 1 MG TAB PO/SL (03:11)
[2021-07-02] MEDS: ACETAMINOPHEN 1,000 MG/100 ML BTL 400 MG IVPB (05:43)
[2021-07-02 07:25] LABS: ALT 44 U/L (16-63); AST 54 U/L (15-37); Albumin 3.3 g/dL (3.4-5.0); Alkaline Phosphatase 73 U/L (46-116); Anion Gap 13.2 mmol/L (3-11); BUN 7 mg/dL (7-18); Bilirubin, Total 1.8 mg/dL (0.2-1.0); CO2 25.8 mmol/L (21.0-32.0); CREATININE 0.7 mg/dL (0.70-1.30); Calcium 8.4 mg/dL (8.5-10.1); Chloride 98 mmol/L (98-107); Glucose 92 mg/dL (74-106); Magnesium 3.1 mg/dL (1.8-2.4); Potassium 3.8 mmol/L (3.5-5.1); Sodium 137 mmol/L (136-145); Total Protein 6.8 g/dL (6.4-8.2)
[2021-07-02 07:28] LABS: Lipase 1525 U/L (73-393)
[2021-07-02] MEDS: Aspirin E.C. 81 MG TABEC PO (08:03)
[2021-07-02] MEDS: Allopurinol 300 MG TAB PO (08:03)
[2021-07-02] MEDS: cloNIDine 0.1 MG TAB PO ×2 (08:03→20:18)
[2021-07-02] MEDS: Metoprolol 25 MG TAB PO ×2 (08:03→20:14)
[2021-07-02] MEDS: Normal Saline Flush 10 ML SYR IVP ×4 (08:09→15:45)
[2021-07-02 08:28] VITALS: BP 164/90; PULSE 62; RESP 18; TEMP 36.4; O2SAT 96
--- NOTE | 2021-07-02 09:48 | W.PM.PROGNOT ---
Date of Service Date of service: 07/02/21 Time of Service: 09:49 Assessment and Plan Assessment and plan (1) Pancreatitis: Status: Chronic Assessment and plan: Lipase up to 1525 today Will reinstate NPO except meds, keep IVF In further assessment this afternoon, abdominal pain resolved, diet advanced to clear. (2) Alcohol withdrawal: Status: Acute Assessment and plan: CIWA 0 TO 7 will continue monitoring and medicate as as per protocol (3) Diabetes: Status: Chronic Assessment and plan: Blood sugars 75 to 88 Will keep holding oral antihyperglycemic agents Will continue glucose monitoring and sliding scale insulin (4) Hypertension: Status: Chronic Assessment and plan: Will continue home pharmacoliogic regimen for hypertension management (5) Pain: Status: Acute Assessment and plan: Pain 6/10 tending down post pain medicine administration; patient's goal is 2/10 Will continue pain medicine as ordered (6) Nausea & vomiting: Status: Resolved Assessment and plan: Episodes of N/V overnight upon change in position Will reinstate NPO status Will change antiemetic drug to compazine from ondansetron (7) DVT prophylaxis: Status: Acute Assessment and plan: Platelets = 79 today from 89 Patient is still on ASA 81 mg EC Enoxaparin considered but not deemed necessary; patient is independently moving in room. (8) Discharge planning issues: Status: Acute Assessment and plan: Will refer to case management if patient desires a personal development coach or rehab. I have independently examined patient and agree with documentation. discussed with DR Chamorro Subjective Subjective Patient reports: feels better, pain is less, voiding w/o difficulty, flatus, bowel movement, nausea and vomiting (Patient reports vomiting upon initiating movement); denies tolerating liquids well, tolerating a regular diet, diarrhea, shortness of breath or fever Exam Narrative Exam Narrative: Const General: cooperative, not in acute distress and other (older than stated age, face flushed) Orientation: alert, awake, oriented to person, oriented to place and not oriented to time (One day off) HENMT Head: normal to inspection, normocephalic and atraumatic Eyes General: appearance normal, both eyes and all related structures Neck Neck: normal visual inspection, full ROM and no lymphadenopathy Chest Chest: normal inspection of the chest Resp Effort & Inspection: normal respiratory effort Auscultation: clear to auscultation bilaterally and diminished lung sounds bilaterally in the lower lung mehta Cardio Jugular venous pressure: no JVD GI Inspection: distended and obesity Palpation: soft Percussion: normal to percussion Auscultation: hyperactive bowel sounds Skin General skin exam: other (Hyperpigmentation ressembling liver spots to bilat. lower ext.; ) Neuro General: patient alert, patient awake, patient oriented x3 and no focal motor deficits Cranial Nerves: CN's II-XI intact bilaterally Cognition: normal cognition Speech: speech normal Gait: normal gait Motor: muscle tone normal throughout Sensory Exam: no sensory deficits noted Extrem General: normal to inspection Right upper extremity: normal to inspection Left upper extremity: normal to inspection Right lower extremity: normal to inspection Left lower extremity: normal to inspection Psych Appearance: grossly normal Mental Status: mental status grossly normal Speech and Movement: speech and movement normal Mood: congruent mood Affect: normal affect Attitude: cooperative Thought Process: normal Thought Content: normal Insight: insight good Judgment: judgment good Objective Last Vital Signs Temp 97.5 F L 07/02/21 08:28 Pulse 62 07/02/21 08:28 Resp 18 07/02/21 08:28 BP 164/90 H 07/02/21 08:28 Pulse Ox 96 07/02/21 08:28 Laboratory Results - last 24 hr 07/01/21 07/02/21 07/02/21 03:45 06:40 06:40 Sodium 137 Potassium 3.8 Chloride 98 Carbon Dioxide 25.8 Anion Gap 13.2 H BUN 7 Creatinine 0.7 Estimated GFR/1.73 m2 >= 60.00 Glucose 92 Calcium 8.4 L Magnesium Cancelled 3.1 H Total Bilirubin 1.8 H AST 54 H ALT 44 Alkaline Phosphatase 73 Total Protein 6.8 Albumin 3.3 L Lipase Cancelled 1525 H SARS-CoV-2 (PCR) Negative PAWSS Have you Been Recently Intoxicated or Drunk Within the Last 30 days?: No Have you Ever Experienced Previous Episodes of Alcohol Withdrawal?: No Have you ever Experienced Withdrawal Seizures?: No Have you ever Experienced Delirium Tremens(DT)s?: No Have you ever undergone Alcohol Rehabilitation Treatment (i.e, inpt ot outpatient treatment programs)?: Yes Have you ever Experienced Blackouts?: Yes Have you ever Combined Alcohol with other Downers within the last 90 days?: No Have you ever Combined Alcohol with any other Substance of Abuse during the last 90 days?: No Positive Blood Alcohol level on Presentation? [PCS.BAL]: No Evidence of Increased Autonomic Activity (i.e. HR>120, tremor, sweating, agitation, nausea)?: No Result: 2
--- NOTE | 2021-07-02 13:00 | PDOC.CMPRO ---
- If Service Date Differs Date of service: 07/02/21 Time of Service: 13:00 Care Management Progress Note S/O: Blayne was not in his room when CM attempted to visit with him, although CM saw him walking around the halls several times today. Per report, his diet was advanced today to clears. He continues to be monitored for alcohol withdrawal, CIWA of 7 this morning. CM will discuss options for recovery and alcohol cessation. CM will continue to follow. A: Blayne is a 55 year old male admitted to [facility] on 07/01/21 with pancreatitis. P: Anticipate Blayne will return home once medically cleared. He will be driven home via private vehicle by family. He will follow up with his PCP and discharge plan of care. CM will continue to follow.
[2021-07-02] MEDS: Acetaminophen 325 MG TAB 650 MG PO ×2 (15:44→20:14)
[2021-07-02 16:08] VITALS: BP 174/92; PULSE 66; RESP 18; TEMP 37.2; O2SAT 97
[2021-07-02] MEDS: Lidocaine 5% Patch 2 PATCH TP (17:39)
--- NOTE | 2021-07-02 22:12 | NUR.NOTE ---
Nursing Note: ED called stating Pt wanted to go home this nurse went down and asked the Pt to come back to the floor so he could sign AMA paperwork. Pt agreeable to request. Pt in room found to have 1 AC saline lock IV in place Pt had pulled out left hand IV prior to leaving floor. Pt signed paperwork and this nurse walked with Pt to lobby of ED. Staff in ED informed Pt waiting for ride.
--- NOTE | 2021-07-03 12:14 | W.PM.DS.N ---
Date of service: 07/03/21 DS: Diagnosis Discharge Diagnosis (1) Pancreatitis: Status: Chronic (2) Alcohol withdrawal: Status: Acute (3) Diabetes: Status: Chronic (4) Hypertension: Status: Chronic (5) Pain: Status: Acute (6) Nausea & vomiting: Status: Resolved (7) DVT prophylaxis: Status: Acute (8) Discharge planning issues: Status: Acute Discharge Plan Disposition Patient Disposition: AGAINST MEDICAL ADVICE Condition: Stable Discharge Details Reason For Visit: Pancreatitis Admit Date/Time: 07/01/21 02:55 Admit Provider: Leno Briceño Attending Provider: Leno Briceño Primary Care Provider: Janessa Cantrell Hospital Course Hospital Course: This is a 55 year old male with history of alcohol abuse and pancreatitis well known to [facility] who presented to the ED with abdominal pain, diagnosed with acute pancreatitis in the ED admitted to med/surg on IV fluids, bowel rest and symptom management. Overnight he experienced some nausea and vomiting which responded to medication and NPO status. His abdominal pain continued to resolve and he was feeling better in the afternoon reporting he abdominal pain resolved and that he was just experiencing some low back pain which he attributed to being in bed. He was given lidocaine patches and advised to ambulate and sit in chair. Plan was to advance diet again as tolerated, starting with clears and if symptoms continued to remain resolved advance to regular with a discharge to home when tolerating it well. He was experiencing no signs of alcohol withdrawal on my exam. It is reported that patient left the facility against medical advice at some point during the night for unclear reasons. Dr Chamorro notified of AMA departure overnight. Home Meds and New Rx's Prescriptions: No Action aspirin 81 mg tablet,delayed release (DR/EC) 81 mg PO DAILY Qty: 90 3RF Basaglar KwikPen U-100 Insulin 100 unit/mL (3 mL) insulin pen 40 unit SC QHS 0RF metoprolol tartrate 25 mg tablet 25 mg PO Q12H Qty: 180 3RF tadalafil 10 mg tablet 10 mg PO ONCE PRN (Reason: sexual activity) Qty: 10 3RF multivitamin [Daily Multi-Vitamin] 1 EACH tablet 1 ea PO DAILY 0RF (DME) FreeStyle Test strip See Dose Instructions .ROUTE .MEDSUPPLY Qty: 360 3RF Dose Instruction: As directed Rx Instructions: qid buspirone 15 mg tablet 15 mg PO TID PRN (Reason: anxiety) Qty: 90 11RF Hold Instructions: not effective (DME) BD AutoShield Duo Pen Needle 30 gauge x 3/16 needle See Dose Instructions .ROUTE .MEDSUPPLY Qty: 100 3RF Dose Instruction: As directed Rx Instructions: test once/day allopurinol 300 mg tablet 300 mg PO DAILY Qty: 10 0RF clonidine HCl 0.1 mg tablet 0.1 mg PO Q12H Qty: 20 0RF metronidazole 0.75 % cream 1 applic TP QHS Qty: 45 0RF metformin 1,000 mg tablet 1,000 mg PO BID Qty: 180 0RF Jardiance 25 mg tablet 25 mg PO QAM Qty: 90 0RF Discharge Instructions Instructions: Pancreatitis (DC) Referrals: Janessa Cantrell MD [Primary Care Provider] - Discharge Orders Discharge Orders: Discharge Order (Routine); Ordered 07/03/21 Ordered By: Cami Wen Discharge Data Discharge Date/Time-TO BE ENTERED AT DEPARTURE: 07/02/21 21:28 DS: Summary Time Spent with Patient providing and/or coordinating discharge services: Less than 30 minutes Status at Discharge Functional status at discharge: independent ambulation Overall status at discharge: patient is back to baseline Mental Status: mental status grossly normal Speech and Movement: speech and movement normal Mood: congruent mood Affect: normal affect Exam Psych Mental Status: mental status grossly normal Speech and Movement: speech and movement normal Mood: congruent mood Affect: normal affect DS: Data Vitals/I&O Vitals and I&O: Vital Signs Temperature 37.2 C 07/02/21 16:08 Temperature Source Tympanic 07/02/21 16:08 Pulse 66 07/02/21 16:08 Pulse Rhythm Regular 07/02/21 15:35 Pulse 70 07/01/21 02:40 Respiratory Rate 18 07/02/21 16:08 Respiratory Effort 07/02/21 20:00 Respiratory Depth Normal 07/02/21 20:00 Respiratory Pattern Normal 07/02/21 20:00 Blood Pressure 174/92 H 07/02/21 16:08 Blood Pressure Mean 108 07/01/21 02:31 Pulse Oximetry 97 07/02/21 16:08 Oxygen Delivery Method Room Air 07/02/21 16:08 Oxygen Flow Rate 0 07/02/21 16:08 Pain Level 8 07/02/21 20:14 Intake & Output 07/02/21 07/03/21 07/03/21 23:59 11:59 23:59 Intake Total 1101 / 3803 Balance 1101 / 3403 Intake: IV 1101 / 3803 Other: Urine Appearance Clear Comment pT voids independently in toilet Voiding Methods Toilet PFSH All Active Problems (Updated 07/02/21 @ 16:45 by Cami Wen NP) DVT prophylaxis (Acute) Discharge planning issues (Acute) Pain (Acute) Hypertension (Chronic) Diabetes (Chronic) Alcohol withdrawal (Acute) Acute pancreatitis (Acute) Pancreatitis (Chronic) Anxiety disorder (Chronic) Onychomycosis (Acute) on fingers and toes; declines to treat due to possible medication side effects. Alcohol intake above recommended sensible limits (Chronic) Tobacco dependence due to chewing tobacco (Acute) Rosacea (Acute) Male erectile disorder (Chronic) normal testosterone Hyperlipidemia (Chronic 07/15/12) Essential hypertension (Chronic 01/10/13) Pancreatic pseudocyst (Acute) Diabetes mellitus (Chronic) Erectile dysfunction (Chronic) Medical History Acute pancreatitis (12/19/13) 12/20/13,11/04/17 Atrial fibrillation Stable. History during hospitalization in 2018, negative Zio patch for 48 hrs. Cerebellar lesion ruled out with MRI Depression a. inpatient admission Ileus Pancreatitis Surgical History H/O arthroscopy of right knee Family History Grandfather , [place] at age 54. 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
== END 2021-07-02 21:28 | disposition left against medical advice (07) | DRG 439 ==
LOC: ER 07-01 03:32 → MS 07-01 04:15
PROVIDERS: Nurse Practitioner Family; Admitting Provider General Practice; Emergency Provider Emergency Medicine; PCP Family Medicine; Visit Provider General Practice
DX: K85.20 Alcohol induced acute pancreatitis without necrosis or infection (principal); K86.3 Pseudocyst of pancreas; F10.139 Alcohol abuse with withdrawal, unspecified; F32.A Depression, unspecified; I10 Essential (primary) hypertension; E11.9 Type 2 diabetes mellitus without complications; L71.9 Rosacea, unspecified; K86.0 Alcohol-induced chronic pancreatitis; F41.9 Anxiety disorder, unspecified; E78.5 Hyperlipidemia, unspecified; B35.1 Tinea unguium; F17.220 Nicotine dependence, chewing tobacco, uncomplicated; Z79.4 Long term (current) use of insulin
CPT/HCPCS: 36415; 80053; 83690; 85027; 87635; 96361; 96365; 96375; 96376; 99284; 99285; 74177; 83735; 84450; 84460; 85025; 99222; 99238; J0131; J1170; J1885; J2405; J3475; J3490

== ENCOUNTER 2022-05-18 13:18 | Inpatient (IN) | payer BC, SELFPAY ==
[2022-05-18] VITALS (37 sets, daily range): BP systolic 152–178; BP diastolic 83–102; PULSE 73–97; RESP 12–24; TEMP 36.8–36.9; O2SAT 98–100
--- NOTE | 2022-05-18 13:15 | RT.EKG_ITS ---
APPROVED REPORT Exam: Resting ECG Reason for Exam: chest pain Patient Location: E HR:79 bpm ECG Measurements Heart Rate 79 AXIS [place] 172 P -8 QRSd 101 QRS 30 QT 391 T 70 QTc 450 Conclusion Sinus rhythm...normal P axis, V-rate 60- 99 Physician: no stemi
--- NOTE | 2022-05-18 13:29 | W.ED.GENAD ---
Discharge Plan Disposition Patient Disposition: Admit to [facility] Condition: Stable Discharge Details Clinical Impression: Pancreatitis, Nausea Primary Care Provider: Janessa Cantrell ED Provider: Shahram Springer Home Meds and New Rx's Prescriptions: No Action aspirin 81 mg tablet,delayed release (DR/EC) 81 mg PO DAILY Qty: 90 3RF multivitamin [Daily Multi-Vitamin] 1 EACH tablet 1 ea PO DAILY metformin 1,000 mg tablet 1,000 mg PO BID Qty: 180 0RF clonidine HCl 0.1 mg tablet 0.1 mg PO Q12H Qty: 180 3RF (DME) FreeStyle Test Strip See Dose Instructions .ROUTE .MEDSUPPLY Qty: 360 3RF Dose Instruction: As directed Rx Instructions: qid Jardiance 25 mg tablet 25 mg PO QAM Qty: 90 1RF insulin glargine [Basaglar KwikPen U-100 Insulin] 100 unit/mL (3 mL) insulin pen 40 unit SC QHS Qty: 15 5RF allopurinol 300 mg tablet 300 mg PO DAILY Qty: 90 3RF metoprolol tartrate 25 mg tablet 25 mg PO Q12H Qty: 180 3RF (DME) BD AutoShield Duo Pen Needle 30 gauge x 3/16 needle See Dose Instructions .ROUTE .MEDSUPPLY Qty: 100 3RF Dose Instruction: As directed Rx Instructions: test once/day metronidazole 0.75 % cream 1 applic TP QHS Qty: 45 12RF Rx Instructions: Apply to face. tadalafil 10 mg tablet 10 mg PO ONCE PRN (Reason: sexual activity) Qty: 10 2RF Medical Decision Making This is a 56-year-old male with a past medical history of significant alcohol use, chronic pancreatitis secondary to alcohol use, type 2 diabetes, who presents today for evaluation of epigastric pain. Patient states that he has not drunk any alcohol for the last week, he states that for the last 4 days he has had diminished appetite, nausea, and then starting today he has had pain in the epigastric region which feels like his previous pancreatitis. He describes it as achy and gnawing. He denies any chest pain or shortness of breath. He denies any diarrhea. He denies any history of cardiac disease. He has noted that his blood sugars have been elevated higher than normal. No other complaints at this time. No other modifying factors. The patient's physical exam Demonstrates mild epigastric abdominal pain. No guarding or rebound. Concern for pancreatitis versus pancreatic pseudocyst. We will get a CT scan, treat the patient's pain, gently rehydrate, monitor closely and reassess. Symptoms appear inconsistent with cardiac etiology however out of an abundance of concern we will get an EKG and troponin. 3:44 PM Laboratory work-up shows a notably elevated lipase. No white count or bandemia. VBG demonstrates a stable pH, electrolytes demonstrate slightly low sodium, minimally low potassium, low chloride, with mild anion gap, but no acidosis or alkalosis. Renal function stable. Glucose 294. Patient has been hydrated with 2 L of normal saline. Vision patient has required a few repeat doses of morphine for pain control. Troponin normal, EKG normal. COVID-negative, alcohol level negative. CT scan has returned and shows peripancreatic fat stranding, particularly adjacent to the head and the body of the pancreas, the pancreatic cyst is visualized, and appears to be stable. No other acute processes otherwise. Patient does live alone. He is not able to tolerate p.o. secondary to abdominal discomfort and persistent nausea. I do feel that admission is reasonable at this point for his pancreatitis. Alcohol is likely the cause of his symptoms. We will contact the hospitalist for admission. Discussed the case with the hospitalist Dr. Chamorro, he agrees with the assessment and plan. I have extensively reviewed the treatment plan with the patient. I have addressed all patient concerns at this time. I have also discussed the plan with the admitting physician and they agree with the current assessment and plan and have agreed to assume responsibility for the patient. All parties demonstrate verbal understanding and agreement with our assessment and plan at this time. The documentation in this chart was dictated using [employer] dictation software. Please excuse any dictation errors. FINDINGS: Lungs: The visualized lung bases are clear. Liver: Fatty infiltration of the liver is unchanged. No liver mass. Gallbladder and bile ducts: No calcified gallstones. Pancreas: There is peripancreatic fat stranding adjacent to the head and proximal body of the pancreas. The distal body and tail of the pancreas are again not visualized. 4.0 x 2.8 cm wellcircumscribed cystic mass at the distal body of the pancreas is unchanged. No peripancreatic fluid. No pancreatic calcifications. No significant dilatation of the pancreatic duct. Spleen: Normal. No splenomegaly. Adrenal glands: Normal. No mass. Kidneys and ureters: Normal. No hydronephrosis. Stomach and bowel: The bowel is normal in caliber. No mucosal or bowel wall thickening. Appendix: No evidence of appendicitis. Intraperitoneal space: Unremarkable. No free air. No significant fluid collection. Vasculature: Unremarkable. No abdominal aortic aneurysm. Lymph nodes: Unremarkable. No enlarged lymph nodes. Urinary bladder: Unremarkable as visualized. Reproductive: Unremarkable as visualized. Bones/joints: Degenerative changes of the lumbar spine. Soft tissues: Unremarkable. IMPRESSION: 1. Findings suspicious for acute pancreatitis. 2. Stable pancreatic cyst. 3. Fatty infiltration of the liver. Thank you for allowing us to participate in the care of your patient. Dictated and Authenticated by: Bernardo Soto MD 05/18/2022 3:35 PM Eastern Time ([place] & [place]) HPI General Date/Time Provider Initiated Documentation: 05/18/22 13:21. HPI Narrative: This is a 56-year-old male with a past medical history of significant alcohol use, chronic pancreatitis secondary to alcohol use, type 2 diabetes, who presents today for evaluation of epigastric pain. Patient states that he has not drunk any alcohol for the last week, he states that for the last 4 days he has had diminished appetite, nausea, and then starting today he has had pain in the epigastric region which feels like his previous pancreatitis. He describes it as achy and gnawing. He denies any chest pain or shortness of breath. He denies any diarrhea. He denies any history of cardiac disease. He has noted that his blood sugars have been elevated higher than normal. No other complaints at this time. No other modifying factors. Related Data Home Medications Medication Instructions Recorded Confirmed multivitamin (Daily Multi-Vitamin 1 ea PO DAILY 10/29/16 07/04/21 tablet) aspirin 81 mg tablet,delayed 81 mg PO DAILY #90 tabs 11/14/20 07/04/21 release metformin 1,000 mg tablet 1,000 mg PO BID #180 tabs 06/17/21 07/04/21 clonidine HCl 0.1 mg tablet 0.1 mg PO Q12H #180 tabs 07/12/21 blood sugar diagnostic (FreeStyle #360 ea 08/01/21 Test strips) empagliflozin 25 mg tablet 25 mg PO QAM #90 tabs 09/27/21 (Jardiance) allopurinol 300 mg tablet 300 mg PO DAILY #90 tabs 12/04/21 insulin glargine 100 unit/mL (3 40 unit (0.4 mL) subcut QHS #15 mL 12/04/21 mL) subcutaneous pen (Basaglar KwikPen U-100 Insulin) metoprolol tartrate 25 mg tablet 25 mg PO Q12H #180 tabs 12/04/21 pen needle,diabetic dual safty 30 #100 ea 12/04/21 gauge x 3/16 (BD AutoShield Duo Pen Needle) metronidazole 0.75 % topical cream 1 applic topical QHS #45 grams 01/09/22 tadalafil 10 mg tablet 10 mg PO ONCE PRN sexual activity 01/09/22 #10 tabs Previous Rx's Medication Instructions Recorded aspirin 81 mg tablet,delayed 81 mg PO DAILY #90 tabs 11/14/20 release metformin 1,000 mg tablet 1,000 mg PO BID #180 tabs 06/17/21 clonidine HCl 0.1 mg tablet 0.1 mg PO Q12H #180 tabs 07/12/21 blood sugar diagnostic (FreeStyle #360 ea 08/01/21 Test strips) empagliflozin 25 mg tablet 25 mg PO QAM #90 tabs 09/27/21 (Jardiance) allopurinol 300 mg tablet 300 mg PO DAILY #90 tabs 12/04/21 insulin glargine 100 unit/mL (3 40 unit (0.4 mL) subcut QHS #15 mL 12/04/21 mL) subcutaneous pen (Basaglar KwikPen U-100 Insulin) metoprolol tartrate 25 mg tablet 25 mg PO Q12H #180 tabs 12/04/21 pen needle,diabetic dual safty 30 #100 ea 12/04/21 gauge x 3/16 (BD AutoShield Duo Pen Needle) metronidazole 0.75 % topical cream 1 applic topical QHS #45 grams 01/09/22 tadalafil 10 mg tablet 10 mg PO ONCE PRN sexual activity 01/09/22 #10 tabs Allergies Allergy/AdvReac Type Severity Reaction Status Date / Time morphine AdvReac Intermediate Narcotic Verified 07/04/21 10:26 induced constipation General Stated Complaint: Abd Prob DELMY: 3 Review of Systems All systems reviewed & are unremarkable except as noted in HPI and below PFSH All Active Problems (Updated 05/18/22 @ 15:47 by Shahram Springer DO) Nausea (Acute) Hypertension (Chronic) Diabetes (Chronic) Alcohol withdrawal (Acute) Pancreatitis (Chronic) Anxiety disorder (Chronic) Onychomycosis (Acute) on fingers and toes; declines to treat due to possible medication side effects. Alcohol intake above recommended sensible limits (Chronic) Tobacco dependence due to chewing tobacco (Acute) Rosacea (Acute) Male erectile disorder (Chronic) normal testosterone Hyperlipidemia (Chronic 07/15/12) Essential hypertension (Chronic 01/10/13) Pancreatic pseudocyst (Acute) Diabetes mellitus (Chronic) Erectile dysfunction (Chronic) Medical History Acute pancreatitis (12/19/13) 12/20/13,11/04/17 Atrial fibrillation Stable. History during hospitalization in 2018, negative Zio patch for 48 hrs. Cerebellar lesion ruled out with MRI Depression a. inpatient admission Ileus Pancreatitis Surgical History H/O arthroscopy of right knee Family History Grandfather , [place] at age 54. 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 3.ENT: Atraumatic external nose and ears. Moist MM. Neck: Symmetric, trachea midline, No thyromegaly. 4.CVS: +S1/S2, No murmurs or gallops. Peripheral pulses 2+ and equal in all extremities. Brisk capillary refill in all extremities. 5.RESP: Unlabored respiratory effort. Clear to auscultation bilaterally. No wheezes rales or rhonchi 6.GI: Soft, nondistended, no guarding or rebound. Mild to moderate pain in the epigastric region. Negative Bledsoe sign. No pain to McBurney's point. 7.MSK: Normocephalic/Atraumatic, Extremities w/o deformity or ttp No cyanosis or clubbing, Normal movement of all extremities 8.Skin: Warm, Dry. No rashes or lesions. Notable rosacea. 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 Sensation grossly intact, no focal neurologic deficits. 10.Psych: (AAO) x3. Appropriate mood and affect Course Vital Signs Vital signs: Vital Signs Temperature 36.9 C 05/18/22 13:21 Pulse 92 H 05/18/22 13:21 Respiratory Rate 16 05/18/22 13:21 Blood Pressure 155/94 H 05/18/22 13:21 Pulse Oximetry 99 05/18/22 13:21 Temperature 36.9 C 05/18/22 13:21 Temperature Source Oral 05/18/22 13:21 Pulse 92 H 05/18/22 13:21 Respiratory Rate 16 05/18/22 13:21 Blood Pressure 155/94 H 05/18/22 13:21 Blood Pressure Position Sitting 05/18/22 13:21 Pulse Oximetry 99 05/18/22 13:21 Oxygen Delivery Method Room Air 05/18/22 13:21 Oxygen Flow Rate 0 05/18/22 13:21 Pain Level 9 05/18/22 13:21
--- NOTE | 2022-05-18 13:30 | DI.CT_ITS ---
Exam(s) CT ABDOMEN PELVIS W EXAM: CT ABDOMEN PELVIS W CLINICAL HISTORY: nausea and epigastric pain, hx of panc cyst TECHNIQUE: Imaging Protocol: Axial computed tomography images with coronal and sagittal reformatted images were created and reviewed CONTRAST MATERIAL: Intravenous: Omnipaque 350 Contrast volume:100 mL Oral: No COMPARISON: CT CT ABDOMEN PELVIS W from 07/01/2021 FINDINGS: ABDOMEN: Lung Bases: Normal where visualized. Liver: There is decreased attenuation of the liver consistent with fatty infiltration. No measurable mass. Portal, Superior Mesenteric, and Splenic Veins: Unremarkable. Gallbladder and Biliary Tract: No radiodense calculus or dilation. Pancreas: The tail of the pancreas is not visualized. There is a 3.9 x 2.6 cm fluid collection assoc iated with the body of the pancreas. This has shown slight decrease in size compared to the prior ex amination. There is again seen mild infiltration of the surrounding peripancreatic soft tissues. No new fluid collections are identified. Spleen: Normal. Adrenals: No masses seen. Kidneys: Normal size, contour and axis. No radiodense stones or obstructive uropathy. No masses seen. Abdominal Aorta: Abdominal portion non-dilated. Atherosclerosis is present. Bowel: There is diverticulosis of the colon but no evidence of acute diverticulitis. No evidence of bowel obstruction or bowel wall thickening. No evidence of appendicitis. Peritoneal Cavity: No ascites, collection or mesenteric inflammatory response. No free air. Lymph Nodes: Within normal limits. Bones: Within normal limits for the patient's age. Soft Tissues: Unremarkable. PELVIS: Bladder: Symmetric distention, no gross wall thickening. Reproductive Organs: Unremarkable as visualized. Lymph Nodes: Within normal limits. Bones: Within normal limits for the patient's age. IMPRESSION: 1. Findings suspicious for acute pancreatitis. 2. Persistent pancreatic cyst. 3. Fatty infiltration of the liver. RADIATION DOSE DELIVERED: 1,218.52mGy.cm Total DLP DATA REPOSITORY: All CT scans at this facility are submitted to the National Radiology Data Registry (NRDR) Dose Index Registry (DIR) with the [employer] (ACR). RADIATION OPTIMIZATION: All CT scans at this facility use at least one of these dose optimization te chniques: automated exposure control; mA and/or kV adjustment per patient size (includes targeted exa ms where dose is matched to clinical indication); or iterative reconstruction.
[2022-05-18 13:36] LABS: Lactate 1.6 mmol/L (0.6-1.4)
[2022-05-18 13:38] LABS: Abs Immature Grans 0.06 10^3/uL (0.0-0.06); Absolute Basophil Count 0.05 10^3/uL (0.0-0.2); Absolute Eosinophil Count 0.02 10^3/uL (0.0-0.7); Absolute Lymphocyte Count 2.06 10^3/uL (1.2-3.4); Absolute Monocyte Count 1.03 10^3/uL (0.1-0.8); Basophils % 0.5; Eosinophils % 0.2; HGB 16.1 g/dL (13.5-17.5); Immature Grans % 0.7; Lymphocytes % 22.6; MCH 34.7 pg (27.0-33.0); MCV 99 fL (80-95); MPV 9.9 fL (8.0-11.0); Monocytes % 11.3; Neutrophils % 64.7; Platelet Count 125 10^3/uL (130-400); RBC 4.64 10^6/uL (4.36-5.78); WBC 9.12 10^3/uL (4.4-10.8)
[2022-05-18] MEDS: Normal Saline 1,000 ML 1000 ML IV ×2 (13:40→15:01)
[2022-05-18] MEDS: MORPHine 4 MG/ML SYR IVP ×3 (13:43→21:06)
[2022-05-18 14:01] LABS: Source Nasal/Nares
[2022-05-18 14:07] LABS: ALT 88 U/L (16-63); AST 76 U/L (15-37); Albumin 4.2 g/dL (3.4-5.0); Alkaline Phosphatase 118 U/L (46-116); BUN 10 mg/dL (7-18); CREATININE 1.3 mg/dL (0.70-1.30); Calcium 10.2 mg/dL (8.5-10.1); Chloride 89 mmol/L (98-107); Estimated GFR 64.88 (mL/min/1.73m2); Glucose 294 mg/dL (74-106); Potassium 3.4 mmol/L (3.5-5.1); Sodium 130 mmol/L (136-145); Total Protein 8.7 g/dL (6.4-8.2); Troponin I < 50 ng/L (<or=60)
[2022-05-18 14:10] LABS: ETHANOL BLOOD < 3.0 mg/dL (<10); Lipase > 375 U/L (16-77)
[2022-05-18 14:28] LABS: BE (Venous) -8 mmol/L (-2-3); HCO3 (Venous) 19 mmol/L (23-28); O2 Sat (Venous) 65 %; TCO2 (Venous) 17 mmol/L (24-29); pCO2 (Venous) 36 mmHg (41-51); pH (Venous) 7.32 (7.31-7.41); pO2 (Venous) 35 mmHg
[2022-05-18 14:35] LABS: COVID-19 PCR Negative (Negative)
[2022-05-18] MEDS: Normal Saline - Diluent 50 ML VIAL IJ (14:48)
[2022-05-18] MEDS: Omnipaque 350 MG/ML 100 ML BTL IJ (14:48)
[2022-05-18] MEDS: Normal Saline Flush 10 ML SYR IVP ×2 (14:49→18:02)
[2022-05-18 15:18] LABS: Bilirubin Negative (Negative); Blood Negative (Negative); Clarity Clear (Clear); Glucose 500 mg/dL (Negative); Ketones >=160 mg/dL (Negative); Leukocyte Esterase Negative (Negative); Nitrite Negative (Negative); Specific Gravity 1.025 (1.005-1.025); Urobilinogen 0.2 mg/dL (Up to 0.2); pH 5.5 (5-8)
--- NOTE | 2022-05-18 15:36 | DI.VRAD_ITS ---
PROCEDURE INFORMATION: Exam: CT Abdomen And Pelvis With Contrast Exam date and time: 05/18/2022 2:41 PM Age: 56 years old Clinical indication: Other: Nausea and epigastric pain, HX of panc cyst TECHNIQUE: Imaging protocol: Computed tomography of the abdomen and pelvis with contrast. Contrast material: OMNIPAQUE 350; Contrast volume: 100 ml; Contrast route: INTRAVENOUS (IV); COMPARISON: CT ABDOMEN PELVIS W 07/01/2021 12:47 AM FINDINGS: Lungs: The visualized lung bases are clear. Liver: Fatty infiltration of the liver is unchanged. No liver mass. Gallbladder and bile ducts: No calcified gallstones. Pancreas: There is peripancreatic fat stranding adjacent to the head and proximal body of the pancreas. The distal body and tail of the pancreas are again not visualized. 4.0 x 2.8 cm well-circumscribed cystic mass at the distal body of the pancreas is unchanged. No peripancreatic fluid. No pancreatic calcifications. No significant dilatation of the pancreatic duct. Spleen: Normal. No splenomegaly. Adrenal glands: Normal. No mass. Kidneys and ureters: Normal. No hydronephrosis. Stomach and bowel: The bowel is normal in caliber. No mucosal or bowel wall thickening. Appendix: No evidence of appendicitis. Intraperitoneal space: Unremarkable. No free air. No significant fluid collection. Vasculature: Unremarkable. No abdominal aortic aneurysm. Lymph nodes: Unremarkable. No enlarged lymph nodes. Urinary bladder: Unremarkable as visualized. Reproductive: Unremarkable as visualized. Bones/joints: Degenerative changes of the lumbar spine. Soft tissues: Unremarkable. IMPRESSION: 1. Findings suspicious for acute pancreatitis. 2. Stable pancreatic cyst. 3. Fatty infiltration of the liver. Dictated and Authenticated by: Bernardo Soto MD. Ordering:ALIDA Omalley MD
--- NOTE | 2022-05-18 16:11 | W.PM.HP.N ---
Date of service: 05/18/22 Time of Service: 16:11 Assessment and Plan Assessment and plan (1) Pancreatitis: Status: Chronic Assessment and plan: Lipase > [address], pseudo cyst stable clear liquids and oral meds only as tolerated, continue IVF pain management and antiemetics. (2) Diabetes: Status: Chronic Assessment and plan: check blood sugars ac/hs and cover as needed with aspart Will hold oral antihyperglycemic agents (3) Hypertension: Status: Chronic Assessment and plan: Will continue home medications for hypertension management (4) DVT prophylaxis: Status: Deleted Assessment and plan: Platelets =125 Patient is still on ASA 81 mg EC Enoxaparin considered but not deemed necessary; patient is independently moving in room. (5) Discharge planning issues: Status: Deleted Assessment and plan: Will refer to case management for recovery collector or rehab. discussed with DR Chamorro History of Present Illness History of Present Illness Chief Complaint: abd pain, nausea vomiting Narrative: This is a 56-year-old male patient with history of alcohol abuse with pancreatitis, diabetes mellitus type 2 who presents to the emergency department with several day history of abdominal pain nausea and vomiting. Last alcoholic beverage was 2 days ago. His work-up in the emergency department is consistent with pancreatitis. He was given IV fluids and IV pain medication. Blood sugar is also elevated but pH within normal limits. He is medically stable with no sign of withdrawal and stable vital signs and appropriate for [facility] admission for further management of his acute pancreatitis Review of Systems All systems reviewed & are unremarkable except as noted in HPI and below PFSH All Active Problems (Updated 05/18/22 @ 15:47 by Shahram Springer DO) Nausea (Acute) Hypertension (Chronic) Diabetes (Chronic) Alcohol withdrawal (Acute) Pancreatitis (Chronic) Anxiety disorder (Chronic) Onychomycosis (Acute) on fingers and toes; declines to treat due to possible medication side effects. Alcohol intake above recommended sensible limits (Chronic) Tobacco dependence due to chewing tobacco (Acute) Rosacea (Acute) Male erectile disorder (Chronic) normal testosterone Hyperlipidemia (Chronic 07/15/12) Essential hypertension (Chronic 01/10/13) Pancreatic pseudocyst (Acute) Diabetes mellitus (Chronic) Erectile dysfunction (Chronic) Medical History Acute pancreatitis (12/19/13) 12/20/13,11/04/17 Atrial fibrillation Stable. History during hospitalization in 2018, negative Zio patch for 48 hrs. Cerebellar lesion ruled out with MRI Depression a. inpatient admission Ileus Pancreatitis Surgical History H/O arthroscopy of right knee Family History Grandfather , [place] at age 54. 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 [employer] What is your relationship status?: Panel score (0-1 are the most socially isolated patients): 0 What type of physical activity do you participate in: walking Do you feel safe at home: Yes Do you feel safe in your relationship?: Yes Meds Allergies and Home Medications Allergies Allergy/AdvReac Type Severity Reaction Status Date / Time morphine AdvReac Intermediate Narcotic Verified 05/18/22 16:56 induced constipation Home Medications Medication Instructions Recorded Confirmed Type multivitamin (Daily Multi-Vitamin 1 ea PO DAILY 10/29/16 05/18/22 History tablet) aspirin 81 mg tablet,delayed 81 mg PO DAILY #90 tabs 11/14/20 05/18/22 Rx release metformin 1,000 mg tablet 1,000 mg PO BID #180 tabs 06/17/21 05/18/22 Rx clonidine HCl 0.1 mg tablet 0.1 mg PO Q12H #180 tabs 07/12/21 05/18/22 Rx blood sugar diagnostic (FreeStyle #360 ea 08/01/21 05/18/22 Rx Test strips) empagliflozin 25 mg tablet 25 mg PO QAM #90 tabs 09/27/21 05/18/22 Rx (Jardiance) allopurinol 300 mg tablet 300 mg PO DAILY #90 tabs 12/04/21 05/18/22 Rx insulin glargine 100 unit/mL (3 40 unit (0.4 mL) subcut QHS #15 mL 12/04/21 05/18/22 Rx mL) subcutaneous pen (Basaglar KwikPen U-100 Insulin) metoprolol tartrate 25 mg tablet 25 mg PO Q12H #180 tabs 12/04/21 05/18/22 Rx pen needle,diabetic dual safty 30 #100 ea 12/04/21 05/18/22 Rx gauge x 3/16 (BD AutoShield Duo Pen Needle) metronidazole 0.75 % topical cream 1 applic topical QHS #45 grams 01/09/22 05/18/22 Rx tadalafil 10 mg tablet 10 mg PO ONCE PRN sexual activity 01/09/22 05/18/22 Rx #10 tabs Exam Const General: cooperative and in distress moderate Orientation: alert and awake HENMT Head: normal to inspection Ears: hearing grossly normal bilaterally General nose exam: external nose normal Mouth: moist mucous membranes Eyes General: appearance normal, both eyes and all related structures Pupils: PERRL EOM: EOM intact bilaterally Neck Neck: normal visual inspection Chest Chest: normal inspection of the chest Resp Effort & Inspection: normal respiratory effort and no respiratory distress Auscultation: clear to auscultation bilaterally Cardio Rate: regular rate Rhythm: regular rhythm GI Inspection: normal to inspection Palpation: soft and tender in the epigastrum, in the LLQ and in the RLQ Skin General skin exam: no rashes or lesions noted Neuro General: patient alert and patient awake Cognition: normal cognition Speech: speech normal Motor: muscle tone normal throughout Sensory Exam: no sensory deficits noted Extrem General: normal to inspection, full ROM and no edema Psych Appearance: grossly normal Mental Status: mental status grossly normal Speech and Movement: speech and movement normal Affect: normal affect Results Labs 05/18/22 13:26 05/18/22 13:26 Labs: Laboratory Results - last 24 hr 05/18/22 05/18/22 05/18/22 13:26 13:26 13:26 WBC RBC Hgb Hct MCV MCH MCHC RDW Plt Count MPV Immature Gran % Neutrophils % Lymphocytes % Monocytes % Eosinophils % Basophils % Nucleated RBC % Absolute Neutrophils Absolute Lymphocytes Absolute Monocytes Absolute Eosinophils Absolute Basophils VBG pH VBG pCO2 VBG pO2 VBG HCO3 VBG Total CO2 VBG O2 Saturation VBG Base Excess VBG Lactate 1.6 H Sodium 130 L Potassium 3.4 L Chloride 89 L Carbon Dioxide 20.0 L Anion Gap 21.0 H BUN 10 Creatinine 1.3 Est GFR (CKD-EPI 2020) 64.88 Glucose 294 H Calcium 10.2 H Total Bilirubin 1.0 AST 76 H ALT 88 H Alkaline Phosphatase 118 H Troponin I Cancelled < 50 Total Protein 8.7 H Albumin 4.2 Lipase Cancelled > 375 H Urine Color Urine Clarity Urine pH Ur Specific [place] Urine Protein Urine Ketones Urine Blood Urine Nitrite Urine Bilirubin Urine Urobilinogen Ur Leukocyte Esterase Urine Glucose Ethyl Alcohol Cancelled < 3.0 COVID-19 Source SARS-CoV-2 (PCR) 05/18/22 05/18/22 05/18/22 13:26 13:55 14:25 WBC 9.12 RBC 4.64 Hgb 16.1 Hct 46.0 MCV 99 H MCH 34.7 H MCHC 35.0 RDW 12.0 Plt Count 125 L MPV 9.9 Immature Gran % 0.7 Neutrophils % 64.7 Lymphocytes % 22.6 Monocytes % 11.3 Eosinophils % 0.2 Basophils % 0.5 Nucleated RBC % 0.0 Absolute Neutrophils 5.90 Absolute Lymphocytes 2.06 Absolute Monocytes 1.03 H Absolute Eosinophils 0.02 Absolute Basophils 0.05 VBG pH 7.32 VBG pCO2 36 L VBG pO2 35 VBG HCO3 19 L VBG Total CO2 17 L VBG O2 Saturation 65 VBG Base Excess -8 L VBG Lactate Sodium Potassium Chloride Carbon Dioxide Anion Gap BUN Creatinine Est GFR (CKD-EPI 2020) Glucose Calcium Total Bilirubin AST ALT Alkaline Phosphatase Troponin I Total Protein Albumin Lipase Urine Color Urine Clarity Urine pH Ur Specific [place] Urine Protein Urine Ketones Urine Blood Urine Nitrite Urine Bilirubin Urine Urobilinogen Ur Leukocyte Esterase Urine Glucose Ethyl Alcohol COVID-19 Source Nasal/Nares SARS-CoV-2 (PCR) Negative 05/18/22 15:10 WBC RBC Hgb Hct MCV MCH MCHC RDW Plt Count MPV Immature Gran % Neutrophils % Lymphocytes % Monocytes % Eosinophils % Basophils % Nucleated RBC % Absolute Neutrophils Absolute Lymphocytes Absolute Monocytes Absolute Eosinophils Absolute Basophils VBG pH VBG pCO2 VBG pO2 VBG HCO3 VBG Total CO2 VBG O2 Saturation VBG Base Excess VBG Lactate Sodium Potassium Chloride Carbon Dioxide Anion Gap BUN Creatinine Est GFR (CKD-EPI 2020) Glucose Calcium Total Bilirubin AST ALT Alkaline Phosphatase Troponin I Total Protein Albumin Lipase Urine Color Yellow Urine Clarity Clear Urine pH 5.5 Ur Specific [place] 1.025 Urine Protein Negative Urine Ketones >=160 H Urine Blood Negative Urine Nitrite Negative Urine Bilirubin Negative Urine Urobilinogen 0.2 Ur Leukocyte Esterase Negative Urine Glucose 500 H Ethyl Alcohol COVID-19 Source SARS-CoV-2 (PCR) Last Vital Signs Temp 36.9 C 05/18/22 13:21 Pulse 92 H 05/18/22 13:21 Resp 16 05/18/22 13:21 BP 155/94 H 05/18/22 13:21 Pulse Ox 99 05/18/22 13:21 PAWSS Have you Been Recently Intoxicated or Drunk Within the Last 30 days?: No Have you Ever Experienced Previous Episodes of Alcohol Withdrawal?: No Have you ever Experienced Withdrawal Seizures?: No Have you ever Experienced Delirium Tremens(DT)s?: No Have you ever undergone Alcohol Rehabilitation Treatment (i.e, inpt ot outpatient treatment programs)?: Yes Have you ever Experienced Blackouts?: No Have you ever Combined Alcohol with other Downers within the last 90 days?: No Have you ever Combined Alcohol with any other Substance of Abuse during the last 90 days?: No Positive Blood Alcohol level on Presentation? [PCS.BAL]: No Evidence of Increased Autonomic Activity (i.e. HR>120, tremor, sweating, agitation, nausea)?: No Result: 1 Time Spent Time spent with Patient: 40-54 minutes Time was spent: preparing to see the patient(eg.review tests), obtaining and/or reviewing separately otacritical access hospital hiistory, ordering medications,tests, procedures, indepentently interpreting results and counseling the patient
[2022-05-18] MEDS: Lactated Ringers 1,000 ML 1000 ML IV (16:50)
[2022-05-18] MEDS: Insulin Aspart 300 UNITS/3 ML PEN SC (17:49)
[2022-05-18] MEDS: cloNIDine 0.1 MG TAB PO (17:49)
[2022-05-18] MEDS: Metoprolol 12.5 MG TAB 25 MG PO (17:49)
[2022-05-18] MEDS: Ketorolac 15 MG/ML VIAL IVP (18:02)
[2022-05-18] MEDS: Lactated Ringers 1,000 ML 150 ML IV (18:29)
[2022-05-18 18:41] LABS: Troponin I < 50 ng/L (<or=60)
[2022-05-18] MEDS: Insulin Glargine 300 UNITS/3 ML PEN 40 UNITS SC (20:26)
[2022-05-19 00:05] VITALS: BP 136/87; PULSE 82; RESP 18; TEMP 36.7; O2SAT 97
[2022-05-19] MEDS: Ketorolac 15 MG/ML VIAL IVP ×3 (00:56→19:55)
[2022-05-19] MEDS: Lactated Ringers 1,000 ML 150 ML IV ×4 (00:57→21:33)
[2022-05-19] MEDS: Normal Saline Flush 10 ML SYR IVP ×5 (00:57→19:56)
[2022-05-19] MEDS: cloNIDine 0.1 MG TAB PO ×2 (04:32→15:37)
[2022-05-19 06:20] LABS: Abs Immature Grans 0.02 10^3/uL (0.0-0.06); Absolute Basophil Count 0.03 10^3/uL (0.0-0.2); Absolute Eosinophil Count 0.07 10^3/uL (0.0-0.7); Absolute Lymphocyte Count 1.66 10^3/uL (1.2-3.4); Absolute Monocyte Count 1.06 10^3/uL (0.1-0.8); Absolute Neutrophil Count 3.95 10^3/uL (1.2-6.7); Basophils % 0.4; HCT 37.2 % (40.0-50.0); Immature Grans % 0.3; Lymphocytes % 24.4; MCH 34.7 pg (27.0-33.0); MCHC 34.9 % (32.0-36.0); MCV 99 fL (80-95); Monocytes % 15.6; Neutrophils % 58.3; RBC 3.75 10^6/uL (4.36-5.78); RDW 12.1 % (11.8-14.1); RDW-SD 44.4 fL; WBC 6.79 10^3/uL (4.4-10.8)
[2022-05-19 06:25] VITALS: BP 129/79; PULSE 69
[2022-05-19] MEDS: Metoprolol 12.5 MG TAB 25 MG PO ×2 (06:25→17:35)
[2022-05-19] MEDS: MORPHine 4 MG/ML SYR IVP ×2 (06:32→13:53)
[2022-05-19 06:43] LABS: ALT 49 U/L (16-63); AST 35 U/L (15-37); Albumin 3.1 g/dL (3.4-5.0); Alkaline Phosphatase 84 U/L (46-116); Anion Gap 11.7 mmol/L (3-11); BUN 6 mg/dL (7-18); Bilirubin, Total 0.7 mg/dL (0.2-1.0); CO2 26.3 mmol/L (21.0-32.0); CREATININE 0.9 mg/dL (0.70-1.30); Chloride 102 mmol/L (98-107); Estimated GFR 100.86 (mL/min/1.73m2); Glucose 83 mg/dL (74-106); Sodium 140 mmol/L (136-145); Total Protein 6.4 g/dL (6.4-8.2)
[2022-05-19 06:49] LABS: Platelet Count 91 10^3/uL (130-400)
[2022-05-19] MEDS: Allopurinol 300 MG TAB PO (08:19)
[2022-05-19] MEDS: Aspirin E.C. 81 MG TABEC PO (08:20)
[2022-05-19] MEDS: Empaglifozin 25 MG TAB PO (08:21)
[2022-05-19 09:41] LABS: Lab Add On Test DONE
--- NOTE | 2022-05-19 09:44 | INITIAL_ITS ---
- If Service Date Differs Date of service: 05/19/22 Time of Service: 09:44 Care Management Initial Assess REASON FOR HOSPITALIZATION:: Pancreatitis PAST MEDICAL HISTORY/PAST SURGICAL HISTORY:: All Active Problems (Updated 05/18/22 @ 15:47 by Shahram Springer DO). Nausea (Acute). Hypertension (Chronic). Diabetes (Chronic). Alcohol withdrawal (Acute). Pancreatitis (Chronic). Anxiety disorder (Chronic). Onychomycosis (Acute). on fingers and toes; declines to treat due to possible medication side effects. Alcohol intake above recommended sensible limits (Chronic). Tobacco dependence due to chewing tobacco (Acute). Rosacea (Acute). Male erectile disorder (Chronic). normal testosterone. Hyperlipidemia (Chronic 07/15/12). Essential hypertension (Chronic 01/10/13). Pancreatic pseudocyst (Acute). Diabetes mellitus (Chronic). Erectile dysfunction (Chronic). Medical History . Acute pancreatitis (12/19/13). 12/20/13,11/04/17. Atrial fibrillation. Stable. History during hospitalization in 2018, negative Zio patch for 48 hrs. Cerebellar lesion. ruled out with MRI. Depression. a. inpatient admission. Ileus. Pancreatitis. Surgical History . H/O arthroscopy of right knee PREVIOUS FUNCTIONAL STATUS/SOCIAL/FAMILY SUPPORTS:: Blayne is and lives in [facility]. 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 Dino states that he has family and friends locally whom are supportive. He is independent at baseline, drives, and manages [employer]'s. CURRENT FUNCTIONAL STATUS:: Blayne is lying in bed when CM met with him. He is visiting with his father and step mother. He feels much better today than yesterday. ADVANCE DIRECTIVES:: None on file. Has patient been provided with info about the portal/API?: Yes Did the patient sign up for the portal?: No CODE STATUS:: Full Code INSURANCE COVERAGE / FINANCIAL ISSUES:: BC/BS CURRENT HOME/COMMUNITY SERVICES/EQUIPMENT:: None PRIMARY CARE PHYSICIAN:: Janessa Cantrell PATIENT/FAMILY EDUCATION NEEDS:: Review discharge instructions, limitations and plan to follow up with community providers. Discuss ask me three. TRANSPORTATION:: Via private vehicle with family. PLAN:: Anticipate, Blayne will discharge home via private vehicle with family when medically ready. He will follow up with community providers and discharge plan to care as prescribed. No new [facility] services are anticipated at this time. CM will continue to follow.
[2022-05-19 09:56] LABS: Magnesium 1.2 mg/dL (1.8-2.4)
[2022-05-19] MEDS: POTASSIUM CHLORIDE 20 MEQ/100 ML BAG 50 MEQ IVPB ×2 (10:14→12:19)
[2022-05-19] MEDS: MAGNESIUM SULFATE 4 GM/100 ML BAG IVPB (14:24)
[2022-05-19 15:29] VITALS: BP 133/83; PULSE 72; RESP 16; TEMP 36.6; O2SAT 98
[2022-05-19] MEDS: Insulin Glargine 300 UNITS/3 ML PEN 30 UNITS SC (19:56)
[2022-05-19 23:11] VITALS: BP 118/78; PULSE 57; RESP 18; TEMP 36.4; O2SAT 99
--- NOTE | 2022-05-19 23:23 | W.PM.PROGNOT ---
Date of Service Date of service: 05/19/22 Time of Service: 11:00 Assessment and Plan Assessment and plan (1) Pancreatitis: Status: Chronic Assessment and plan: Lipase > [address], pseudo cyst stable clear liquids and oral meds only as tolerated, continue IVF - cari clear liquids and adv as cari pain management and antiemetics. (2) Diabetes: Status: Chronic Assessment and plan: check blood sugars ac/hs and cover as needed with aspart Will hold oral antihyperglycemic agents Decreased nighttime Lantus insulin to 30 units s/t hypoglycemia. Consider changing IVF to D5NS if continues to have low sugars (3) Hypertension: Status: Chronic Assessment and plan: Will continue home medications for hypertension management (4) Hypomagnesemia: Status: Acute Assessment and plan: Magnesium 1.2 - repleted 4 gm IV; monitor (5) Hypokalemia: Status: Acute Assessment and plan: K 3.0- repleted with 20 meq IV x 2 Monitor (6) Thrombocytopenia: Status: Chronic (7) DVT prophylaxis: Status: Deleted Assessment and plan: Platelets =91 Patient is still on ASA 81 mg EC Enoxaparin considered but not deemed necessary; patient is independently moving in room and contraindicated with platelets 91 (8) Discharge planning issues: Status: Deleted Assessment and plan: Will refer to case management for chief engineer drilling and recovery or rehab. discussed with Dr Chamorro Subjective Subjective Patient reports: no new complaints, tolerating liquids well and afebrile; denies diarrhea, vomiting or shortness of breath Interval history since last seen: Blayne states today his pain is much better. He is cari liquids and adv diet, without complaint of nausea, or increased pain. Exam Const General: cooperative and in distress moderate Orientation: alert and awake [facility] Head: normal to inspection Ears: hearing grossly normal bilaterally General nose exam: external nose normal Mouth: moist mucous membranes Eyes General: appearance normal, both eyes and all related structures Pupils: PERRL EOM: EOM intact bilaterally Neck Neck: normal visual inspection Chest Chest: normal inspection of the chest Resp Effort & Inspection: normal respiratory effort and no respiratory distress Auscultation: clear to auscultation bilaterally Cardio Rate: regular rate Rhythm: regular rhythm GI Inspection: normal to inspection Palpation: soft and tender in the epigastrum, in the LLQ and in the RLQ Skin General skin exam: no rashes or lesions noted Neuro General: patient alert and patient awake Cognition: normal cognition Speech: speech normal Motor: muscle tone normal throughout Sensory Exam: no sensory deficits noted Extrem General: normal to inspection, full ROM and no edema Psych Appearance: grossly normal Mental Status: mental status grossly normal Speech and Movement: speech and movement normal Affect: normal affect Objective Last Vital Signs Temp 36.4 C L 05/19/22 23:11 Pulse 57 L 05/19/22 23:11 Resp 18 05/19/22 23:11 BP 118/78 05/19/22 23:11 Pulse Ox 99 05/19/22 23:11 Laboratory Results - last 24 hr 05/19/22 05/19/22 05/19/22 06:06 06:06 06:06 WBC 6.79 RBC 3.75 L Hgb 13.0 L D Hct 37.2 L MCV 99 H MCH 34.7 H MCHC 34.9 RDW 12.1 Plt Count 91 L MPV 10.0 Immature Gran % 0.3 Neutrophils % 58.3 Lymphocytes % 24.4 Monocytes % 15.6 Eosinophils % 1.0 Basophils % 0.4 Nucleated RBC % 0.0 Absolute Neutrophils 3.95 Absolute Lymphocytes 1.66 Absolute Monocytes 1.06 H Absolute Eosinophils 0.07 Absolute Basophils 0.03 Sodium 140 D Potassium 3.0 L Chloride 102 Carbon Dioxide 26.3 Anion Gap 11.7 H BUN 6 L Creatinine 0.9 Est GFR (CKD-EPI 2020) 100.86 Glucose 83 Calcium 9.0 Magnesium Total Bilirubin 0.7 AST 35 ALT 49 Alkaline Phosphatase 84 Total Protein 6.4 Albumin 3.1 L Add-On Test Request DONE 05/19/22 06:06 WBC RBC Hgb Hct MCV MCH MCHC RDW Plt Count MPV Immature Gran % Neutrophils % Lymphocytes % Monocytes % Eosinophils % Basophils % Nucleated RBC % Absolute Neutrophils Absolute Lymphocytes Absolute Monocytes Absolute Eosinophils Absolute Basophils Sodium Potassium Chloride Carbon Dioxide Anion Gap BUN Creatinine Est GFR (CKD-EPI 2020) Glucose Calcium Magnesium 1.2 L Total Bilirubin AST ALT Alkaline Phosphatase Total Protein Albumin Add-On Test Request Reviewed Pertinent PMH: Yes PAWSS Have you Been Recently Intoxicated or Drunk Within the Last 30 days?: No Have you Ever Experienced Previous Episodes of Alcohol Withdrawal?: No Have you ever Experienced Withdrawal Seizures?: No Have you ever Experienced Delirium Tremens(DT)s?: No Have you ever undergone Alcohol Rehabilitation Treatment (i.e, inpt ot outpatient treatment programs)?: Yes Have you ever Experienced Blackouts?: No Have you ever Combined Alcohol with other Downers within the last 90 days?: No Have you ever Combined Alcohol with any other Substance of Abuse during the last 90 days?: No Positive Blood Alcohol level on Presentation? [PCS.BAL]: No Evidence of Increased Autonomic Activity (i.e. HR>120, tremor, sweating, agitation, nausea)?: No Result: 1 Time Spent with Patient Time Spent with Patient: 25-34 minutes Time was spent: preparing to see the patient(eg.review tests), ordering medications,tests, procedures, referring, communicating with other health critical care unit manager, indepentently interpreting results, counseling the patient and care coordination
[2022-05-20] MEDS: Normal Saline Flush 10 ML SYR IVP ×2 (00:36→06:04)
[2022-05-20] MEDS: MORPHine 4 MG/ML SYR IVP (00:36)
[2022-05-20 00:39] LABS: Potassium 3.1 mmol/L (3.5-5.1)
[2022-05-20] MEDS: POTASSIUM CHLORIDE 20 MEQ/100 ML BAG 50 MEQ IVPB ×2 (00:54→02:36)
[2022-05-20] MEDS: Lactated Ringers 1,000 ML 150 ML IV (03:43)
[2022-05-20] MEDS: cloNIDine 0.1 MG TAB PO (03:43)
[2022-05-20 03:44] VITALS: BP 129/83; PULSE 69; O2SAT 99
[2022-05-20] MEDS: Ketorolac 15 MG/ML VIAL IVP (06:03)
[2022-05-20 06:04] VITALS: BP 123/81; PULSE 64
[2022-05-20] MEDS: Metoprolol 12.5 MG TAB 25 MG PO (06:04)
[2022-05-20 06:42] LABS: Abs Immature Grans 0.03 10^3/uL (0.0-0.06); Absolute Basophil Count 0.02 10^3/uL (0.0-0.2); Absolute Eosinophil Count 0.06 10^3/uL (0.0-0.7); Absolute Lymphocyte Count 1.68 10^3/uL (1.2-3.4); Absolute Monocyte Count 0.63 10^3/uL (0.1-0.8); Absolute Neutrophil Count 2.57 10^3/uL (1.2-6.7); Basophils % 0.4; Eosinophils % 1.2; HCT 37.4 % (40.0-50.0); HGB 13.1 g/dL (13.5-17.5); Immature Grans % 0.6; Lymphocytes % 33.7; MCH 35.4 pg (27.0-33.0); MCV 101 fL (80-95); MPV 10.6 fL (8.0-11.0); Monocytes % 12.6; Neutrophils % 51.5; Platelet Count 101 10^3/uL (130-400); RDW 12.4 % (11.8-14.1); RDW-SD 46.1 fL; WBC 4.99 10^3/uL (4.4-10.8)
[2022-05-20 07:01] LABS: Anion Gap 5.5 mmol/L (3-11); BUN 4 mg/dL (7-18); C-Reactive Protein 5.35 mg/dL (0.0-0.3); CO2 28.5 mmol/L (21.0-32.0); CREATININE 0.8 mg/dL (0.70-1.30); Chloride 104 mmol/L (98-107); Estimated GFR 104.51 (mL/min/1.73m2); Glucose 59 mg/dL (74-106); Lipase 49 U/L (16-77); Magnesium 1.7 mg/dL (1.8-2.4); Potassium 3.5 mmol/L (3.5-5.1); Sodium 138 mmol/L (136-145)
[2022-05-20 07:36] VITALS: BP 113/71; PULSE 70; RESP 18; TEMP 36.2; O2SAT 97
--- NOTE | 2022-05-20 09:12 | CMPROGNOTE_ITS ---
- If Service Date Differs Date of service: 05/20/22 Time of Service: 09:12 Care Management Progress Note S/O: Blayne was out of bed when CM met with him. He is feeling much better today and plans to discharge home after lunch. CM offered patient a referral to the [facility], and he declines. Blayne reports that he's had alcoholic pancreatitis in the past but is now sober. A: 56 year old male admitted to [facility] on 05/18/22 for pancreatitis P: Anticipate, Blayne will discharge home via private vehicle with family when medically ready. He will follow up with community providers and discharge plan to care as prescribed. No new [facility] services are anticipated at this time. Declines referral to [facility]. CM will continue to follow.
[2022-05-20] MEDS: Empaglifozin 25 MG TAB PO (09:20)
[2022-05-20] MEDS: Allopurinol 300 MG TAB PO (09:21)
[2022-05-20] MEDS: Aspirin E.C. 81 MG TABEC PO (09:21)
--- NOTE | 2022-05-20 12:35 | DSE_ITS ---
Date of service: 05/20/22 Time of Service: 12:35 DS: Diagnosis Discharge Diagnosis (1) Pancreatitis: Status: Chronic (2) Diabetes: Status: Chronic (3) Hypertension: Status: Chronic (4) Hypomagnesemia: Status: Acute (5) Hypokalemia: Status: Acute (6) Thrombocytopenia: Status: Chronic Discharge Plan Disposition Patient Disposition: Home Condition: Stable Discharge Details Reason For Visit: Pancreatitis Admit Date/Time: 05/18/22 16:04 Admit Provider: Benjamin Chamorro Attending Provider: Benjamin Chamorro Primary Care Provider: Janessa Cantrell Hospital Course Hospital Course: This is a 56-year-old male patient with history of alcohol use disorder pancreatic pseudocyst pancreatitis diabetes mellitus type 2 who presented to the emergency department with a several day history of abdominal pain most consistent with his last episode of pancreatitis. He states he has not had any alcohol for about a week but the pain continues to worsen. His work-up in the emergency department did show an elevated lipase and a stable CAT scan with evidence of pancreatitis and stable pseudocyst. He was given IV hydration pain medication and antiemetics. Hemodynamically he was stable he was admitted to the medical surgical unit for bowel rest and further management of his symptoms. His diet was slowly advanced his pain resolving he has been able to tolerate a regular diet. He is medically stable and ready for discharge to home will be discharged home with no services Discharge discussed with Dr. Chamorro Home Meds and New Rx's Prescriptions: Continued aspirin 81 mg tablet,delayed release (DR/EC) 81 mg PO DAILY Qty: 90 3RF multivitamin [Daily Multi-Vitamin] 1 EACH tablet 1 ea PO DAILY metformin 1,000 mg tablet 1,000 mg PO BID Qty: 180 0RF clonidine HCl 0.1 mg tablet 0.1 mg PO Q12H Qty: 180 3RF (DME) FreeStyle Test Strip See Dose Instructions .ROUTE .MEDSUPPLY Qty: 360 3RF Dose Instruction: As directed Rx Instructions: qid Jardiance 25 mg tablet 25 mg PO QAM Qty: 90 1RF insulin glargine [Basaglar KwikPen U-100 Insulin] 100 unit/mL (3 mL) insulin pen 40 unit SC QHS Qty: 15 5RF allopurinol 300 mg tablet 300 mg PO DAILY Qty: 90 3RF metoprolol tartrate 25 mg tablet 25 mg PO Q12H Qty: 180 3RF (DME) BD AutoShield Duo Pen Needle 30 gauge x 3/16 needle See Dose Instructions .ROUTE .MEDSUPPLY Qty: 100 3RF Dose Instruction: As directed Rx Instructions: test once/day metronidazole 0.75 % cream 1 applic TP QHS Qty: 45 12RF Rx Instructions: Apply to face. tadalafil 10 mg tablet 10 mg PO ONCE PRN (Reason: sexual activity) Qty: 10 2RF Discharge Instructions Instructions: Pancreatitis (DC) Additional Instructions: Continue to advance diet as tolerated avoiding alcohol. Stand Alone Forms: Nursing Discharge Form Referrals: Janessa Cantrell MD [Primary Care Provider] - (Please call [phone] to make an appointment in the next 1-2 weeks ) Activity:: Activity as Tolerated Equipment/Supplies:: No Equipment Needed Diet:: Carb Counting Discharge Orders Discharge Orders: Discharge Order (Routine); Ordered 05/20/22 Ordered By: Cami Wen DS: Summary Time Spent with Patient providing and/or coordinating discharge services: Less than 30 minutes Status at Discharge Functional status at discharge: independent ambulation Overall status at discharge: patient is progressing back to baseline Mental Status: mental status grossly normal Speech and Movement: speech and movement normal Mood: congruent mood Affect: normal affect Exam Const General: cooperative Orientation: alert and awake HENMT Head: normal to inspection Ears: hearing grossly normal bilaterally General nose exam: external nose normal Mouth: moist mucous membranes Eyes General: appearance normal, both eyes and all related structures Pupils: PERRL EOM: EOM intact bilaterally Neck Neck: normal visual inspection Chest Chest: normal inspection of the chest Resp Effort & Inspection: normal respiratory effort and no respiratory distress Auscultation: clear to auscultation bilaterally Cardio Rate: regular rate Rhythm: regular rhythm GI Inspection: normal to inspection Palpation: soft and tender in the epigastrum, in the LLQ and in the RLQ Skin General skin exam: no rashes or lesions noted Neuro General: patient alert and patient awake Cognition: normal cognition Speech: speech normal Motor: muscle tone normal throughout Sensory Exam: no sensory deficits noted Extrem General: normal to inspection, full ROM and no edema Psych Appearance: grossly normal Mental Status: mental status grossly normal Speech and Movement: speech and movement normal Mood: congruent mood Affect: normal affect DS: Data Vitals/I&O Vitals and I&O: Vital Signs Temperature 36.2 C L 05/20/22 07:36 Temperature Source Tympanic 05/20/22 07:36 Pulse 70 05/20/22 07:36 Pulse Rhythm Regular 05/20/22 00:40 Pulse 79 05/18/22 16:01 Respiratory Rate 18 05/20/22 07:36 Respiratory Effort Normal, Non-Labored 05/20/22 00:40 Respiratory Depth Normal 05/20/22 00:40 Respiratory Pattern Normal 05/20/22 00:40 Blood Pressure 113/71 05/20/22 07:36 Blood Pressure Mean 106 05/18/22 16:31 Blood Pressure Position Sitting 05/18/22 13:21 Pulse Oximetry 97 05/20/22 07:36 Oxygen Delivery Method Room Air 05/20/22 07:36 Oxygen Flow Rate 0 05/20/22 07:36 Pain Level 4 05/20/22 00:36 Comment Pt in bed, resting. NAD noted and no voiced complaints 05/19/22 15:29 Intake & Output 05/19/22 05/20/22 05/20/22 23:59 11:59 23:59 Intake Total 3082.5 / 5052.5 1410 / 1410 Output Total 1875 / 1875 600 / 600 Balance 1207.5 / 3177.5 810 / 810 Intake: IV 2242.5 / 4212.5 1010 / 1010 Oral 840 / 840 400 / 400 Output: Urine 1875 / 1875 600 / 600 Other: Urine Color Yellow Light Dania Urine Appearance Clear Clear Urine Odor None Normal Voiding Methods Urinal Urinal Data Completed and Pending Labs on day of discharge: Labs from last 24 hours 05/20/22 05/20/22 05/20/22 06:15 06:15 00:20 WBC 4.99 RBC 3.70 L Hgb 13.1 L Hct 37.4 L MCV 101 H MCH 35.4 H MCHC 35.0 RDW 12.4 Plt Count 101 L MPV 10.6 Immature Gran % 0.6 Neutrophils % 51.5 Lymphocytes % 33.7 Monocytes % 12.6 Eosinophils % 1.2 Basophils % 0.4 Nucleated RBC % 0.0 Absolute Neutrophils 2.57 Absolute Lymphocytes 1.68 Absolute Monocytes 0.63 Absolute Eosinophils 0.06 Absolute Basophils 0.02 Sodium 138 Potassium 3.5 3.1 L Chloride 104 Carbon Dioxide 28.5 Anion Gap 5.5 BUN 4 L Creatinine 0.8 Est GFR (CKD-EPI 2020) 104.51 Glucose 59 L Calcium 9.0 Magnesium 1.7 L C-Reactive Protein 5.35 H Lipase 49 PFSH All Active Problems (Updated 05/19/22 @ 23:39 by Ngozi Subramanian NP) Thrombocytopenia (Chronic) Hypokalemia (Acute) Hypomagnesemia (Acute) Nausea (Acute) Hypertension (Chronic) Diabetes (Chronic) Alcohol withdrawal (Acute) Pancreatitis (Chronic) Anxiety disorder (Chronic) Onychomycosis (Acute) on fingers and toes; declines to treat due to possible medication side effects. Alcohol intake above recommended sensible limits (Chronic) Tobacco dependence due to chewing tobacco (Acute) Rosacea (Acute) Male erectile disorder (Chronic) normal testosterone Hyperlipidemia (Chronic 07/15/12) Essential hypertension (Chronic 01/10/13) Pancreatic pseudocyst (Acute) Diabetes mellitus (Chronic) Erectile dysfunction (Chronic) Medical History Acute pancreatitis (12/19/13) 12/20/13,11/04/17 Atrial fibrillation Stable. History during hospitalization in 2018, negative Zio patch for 48 hrs. Cerebellar lesion ruled out with MRI Depression a. inpatient admission Ileus Pancreatitis Surgical History H/O arthroscopy of right knee Family History Grandfather , [place] at age 54. 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
[2022-05-20] MEDS: Insulin Aspart 300 UNITS/3 ML PEN SC (12:41)
--- NOTE | 2022-05-20 13:05 | PDOC.CMDIS ---
- If Service Date Differs Date of service: 05/20/22 Time of Service: 13:05 LACE Index Scoring Tool - Questions: Length of Stay (in days): 2 Acuity (Admit via E.D.?): Yes Comorbidities: Diabetes w/o Complication E.D. Visits: 2 - Answers: Total Score: 8 Risk of Readmission: Low Risk Care Management Discharge Reason for Hospitalization: Pancreatitis Discharge Plan: Dino is discharged home via private vehicle with family. He will follow up with community providers and his discharge plan of care as prescribed. No [facility] services are ordered. Patient/Family Education Needs: Review discharge instructions, limitations and plan to call PCP for a hospital follow up in 1-2 weeks. Discuss ask me three.
== END 2022-05-20 13:07 | disposition home or self-care (01) | DRG 439 ==
LOC: ER 16:23 → MS 17:04
PROVIDERS: General Practice; Nurse Practitioner Acute Care; Nurse Practitioner Family; Admitting Provider Internal Medicine; Emergency Provider Student in an Organized Health Care Education/Training Program; PCP Family Medicine; Visit Provider Internal Medicine
DX: K85.90 Acute pancreatitis without necrosis or infection, unspecified (principal); K86.3 Pseudocyst of pancreas; I10 Essential (primary) hypertension; E11.9 Type 2 diabetes mellitus without complications; E83.42 Hypomagnesemia; E87.6 Hypokalemia; D69.6 Thrombocytopenia, unspecified; F10.10 Alcohol abuse, uncomplicated; F41.9 Anxiety disorder, unspecified; F17.220 Nicotine dependence, chewing tobacco, uncomplicated; L71.9 Rosacea, unspecified; I48.91 Unspecified atrial fibrillation; F32.A Depression, unspecified; Z79.4 Long term (current) use of insulin; Z79.84 Long term (current) use of oral hypoglycemic drugs
CPT/HCPCS: 36415; 80048; 80053; 82805; 83690; 87635; 93005; 96361; 96374; 96376; 99285; 74177; 80320; 81003; 83605; 83735; 84132; 84484; 85025; 86140; 93010; 99223; 99232; 99238; J1885; J2270; J3475; J3480; J3490

== ENCOUNTER 2022-05-28 16:14 | Outpatient (REF) | payer BC, SELFPAY ==
[2022-05-28 21:57] LABS: Microalb ug/mg Crea 6.9 ug/mg Cr
== END 2022-05-28 16:15 | disposition home or self-care (01) ==
LOC: LBN 16:14
PROVIDERS: PCP Family Medicine; Visit Provider Family Medicine
DX: E11.65 Type 2 diabetes mellitus with hyperglycemia (principal); Z79.4 Long term (current) use of insulin
CPT/HCPCS: 82043; 82570

== ENCOUNTER 2022-08-29 12:45 | Inpatient (IN) | payer BC, SELFPAY ==
[2022-08-29] VITALS (19 sets, daily range): BP systolic 141–175; BP diastolic 64–102; PULSE 85–109; RESP 10–18; TEMP 36.3–36.5; O2SAT 97–99
--- NOTE | 2022-08-29 13:15 | DI.CT_ITS ---
Exam(s) CT HEAD WO EXAM: CT HEAD WO CLINICAL HISTORY: head injury. TECHNIQUE: Imaging Protocol: Axial computed tomography images with coronal and sagittal reformatted images were created and reviewed COMPARISON: CT CT HEAD WO from 11/21/2017 FINDINGS: Ventricles and Extra axial spaces: Normal in size and morphology for the patient's age. Hemorrhage: None. Cerebral parenchyma: Normal. Midline shift: None. Brainstem/Cerebellum: Normal. Calvarium: Normal. Visualized Paranasal sinuses/Mastoids: Clear. Soft Tissues: Unremarkable. IMPRESSION: No acute intracranial process. RADIATION DOSE DELIVERED: 836.84mGy.cm Total DLP DATA REPOSITORY: All CT scans at this facility are submitted to the National Radiology Data Registry (NRDR) Dose Index Registry (DIR) with the [employer] (ACR). RADIATION OPTIMIZATION: All CT scans at this facility use at least one of these dose optimization te chniques: automated exposure control; mA and/or kV adjustment per patient size (includes targeted exa ms where dose is matched to clinical indication); or iterative reconstruction.
--- NOTE | 2022-08-29 13:15 | DI.CT_ITS ---
Exam(s) CT ABDOMEN PELVIS W EXAM: CT ABDOMEN PELVIS W CLINICAL HISTORY: hx of pseudocyst and pancreatitis. TECHNIQUE: Imaging Protocol: Axial computed tomography images with coronal and sagittal reformatted images were created and reviewed CONTRAST MATERIAL: Intravenous: Omnipaque 350 Contrast volume:100 ml Oral: / no CT CT ABDOMEN PELVIS W from 07/01/[address] ABDOMEN PELVIS W from 05/18/2022 FINDINGS: ABDOMEN: Lung Bases: Normal where visualized. Small hiatal hernia. Liver: Enlarged. Fatty infiltration. No measurable mass. Gallbladder and biliary tract: No radiodense calculus or dilation. Pancreas: Stable cyst in the body of the pancreas. The tail is again not present. Severe inflammati on is noted around the head of the pancreas with marked surrounding stranding and a small amount of f luid. The findings are more severe when compared the with the previous exam. There is significant a djacent inflammation of the descending duodenum. No evidence of perforation. The vessels appear pat ent. Spleen: Normal. Kidneys: Normal size, contour and axis. No radiodense stones or obstructive uropathy. No suspicious m asses seen. Adrenal glands: No masses seen. Abdominal Aorta: Abdominal portion non-dilated. Soft tissues: Unremarkable. PELVIS: Bladder: Distended. No gross wall thickening. No calculi.No focal mass. Bowel: Diverticulosis. No evidence of diverticulitis. No obstruction. No bowel wall thickening. A ppendix normal. Peritoneal cavity: No ascites, collection or mesenteric inflammatory response. Bones: Degenerative changes in the spine and hips. Reproductive organs: Within normal limits. Lymph nodes: Unremarkable. Impression: Findings consistent with acute pancreatitis. Stable pancreatic cyst. Findings called to Edilia Lennon of the emergency department RADIATION DOSE DELIVERED: 1,580.47mGy.cm Total DLP DATA REPOSITORY: All CT scans at this facility are submitted to the National Radiology Data Registry (NRDR) Dose Index Registry (DIR) with the [employer] (ACR). RADIATION OPTIMIZATION: All CT scans at this facility use at least one of these dose optimization te chniques: automated exposure control; mA and/or kV adjustment per patient size (includes targeted exa ms where dose is matched to clinical indication); or iterative reconstruction.
--- NOTE | 2022-08-29 13:15 | RT.EKG_ITS ---
APPROVED REPORT Exam: Resting ECG Reason for Exam: epigastric pain Patient Location: E HR:86 bpm ECG Measurements Heart Rate 86 AXIS RI 176 P -62 QRSd 102 QRS 19 QT 385 T 44 QTc 460 Conclusion Sinus or ectopic atrial rhythm...P axis (-45,135)
[2022-08-29 13:38] LABS: Abs Immature Grans 0.02 10^3/uL (0.0-0.06); Absolute Basophil Count 0.05 10^3/uL (0.0-0.2); Absolute Eosinophil Count 0.01 10^3/uL (0.0-0.7); Absolute Lymphocyte Count 1.73 10^3/uL (1.2-3.4); Absolute Monocyte Count 1.13 10^3/uL (0.1-0.8); Absolute Neutrophil Count 6.33 10^3/uL (1.2-6.7); Basophils % 0.5; Eosinophils % 0.1; HCT 46.6 % (40.0-50.0); HGB 16.6 g/dL (13.5-17.5); Immature Grans % 0.2; Lymphocytes % 18.7; MCH 35.5 pg (27.0-33.0); MCHC 35.6 % (32.0-36.0); MCV 100 fL (80-95); MPV 9.9 fL (8.0-11.0); Monocytes % 12.2; Neutrophils % 68.3; Platelet Count 150 10^3/uL (130-400); RBC 4.68 10^6/uL (4.36-5.78); RDW 12.2 % (11.8-14.1); RDW-SD 45.1 fL; WBC 9.27 10^3/uL (4.4-10.8)
[2022-08-29] MEDS: HYDROmorphone 2 MG/ML SYR 1 MG IVP ×2 (13:41→21:20)
[2022-08-29] MEDS: Lactated Ringers 1,000 ML 1000 ML IV (13:42)
[2022-08-29 14:01] LABS: ALT 64 U/L (16-63); AST 77 U/L (15-37); Albumin 4.4 g/dL (3.4-5.0); Alkaline Phosphatase 112 U/L (46-116); Amylase 281 U/L (25-115); Anion Gap 16.2 mmol/L (3-11); BUN 6 mg/dL (7-18); CO2 27.8 mmol/L (21.0-32.0); Calcium 10.7 mg/dL (8.5-10.1); Chloride 93 mmol/L (98-107); ETHANOL BLOOD < 3.0 mg/dL (<10); Estimated GFR 88.88 (mL/min/1.73m2); Glucose 335 mg/dL (74-106); Lipase > 375 U/L (16-77); Magnesium 1.2 mg/dL (1.8-2.4); Potassium 3.7 mmol/L (3.5-5.1); Sodium 137 mmol/L (136-145); Total Protein 8.7 g/dL (6.4-8.2); Troponin I < 50 ng/L (<or=60)
[2022-08-29] MEDS: HYDROmorphone 2 MG/ML SYR IVP ×2 (14:16→17:37)
[2022-08-29 14:17] LABS: BE (Venous) -1 mmol/L (-2-3); HCO3 (Venous) 25 mmol/L (23-28); O2 Sat (Venous) 82 %; TCO2 (Venous) 22 mmol/L (24-29); pCO2 (Venous) 44 mmHg (41-51); pH (Venous) 7.36 (7.31-7.41); pO2 (Venous) 49 mmHg
[2022-08-29] MEDS: Normal Saline Flush 10 ML SYR IVP (14:58)
[2022-08-29] MEDS: Omnipaque 350 MG/ML 100 ML BTL IJ (14:59)
[2022-08-29] MEDS: Normal Saline - Diluent 50 ML VIAL IJ (14:59)
--- NOTE | 2022-08-29 15:15 | W.ED.GENAD ---
Discharge Plan Disposition Patient Disposition: Admit to [facility] Discharge Details Clinical Impression: Alcohol intake above recommended sensible limits, Pancreatic pseudocyst, Pancreatitis Admit Date/Time: 08/29/22 16:00 Admit Provider: Benjamin Chamorro Attending Provider: Benjamin Chamorro Primary Care Provider: Janessa Cantrell ED Provider: Edilia Lennon Discharge Data Discharge Date/Time-TO BE ENTERED AT DEPARTURE: 08/29/22 17:38 Medical Decision Making This 56-year-old gentleman with history of depression, diabetes, hypertension, and pancreatitis presents with report of exam consistent with likely pancreatitis Diagnostic labs do not show evidence of acute abnormality QTc does not show evidence of significant acute abnormality on EKG interpretation and review Amylase of 281, lipase greater than 375, alcohol less than 3 and no clinical evidence of withdrawal We will place CIWA Troponin negative LFTs elevated, CBC consistent with likely alcoholism history On reassessment CIWA is 7, this was discussed with hospitalist Dr Chamorro, recommend loading dose of phenobarbital, after discussion with the pharmacist, Meg, as recommended giving prophylactic dose of phenobarbital, the first dose in the emergency department is 160 mg, this is 40% of the full dose based on ideal body weight of 82.2 kg the order set has been utilized, patient is alert and oriented at time of reassessment His glucose is elevated at 332, we will recheck blood glucose level on admission He is not in DKA clinically His magnesium was 1.2, this was supplemented with 2 g of magnesium Case was discussed with Dr Chamorro who will admit to his service HPI General Date/Time Provider Initiated Documentation: 08/29/22 12:50. HPI Narrative: This 56-year-old male presents with report of right-sided abdominal pain nausea vomiting since this morning. History of pancreatitis states his last drink was 2 days ago. States he does not drink daily, denies known history of alcohol withdrawal. Does state he drinks approximately a sixpack daily, with some mixed drinks intermittently. States has had a history of recurrent symptoms in the past. States has had nausea and vomiting. Denies any blood in vomitus. Related Data Home Medications Medication Instructions Recorded Confirmed multivitamin (Daily Multi-Vitamin 1 ea PO DAILY 10/29/16 08/29/22 tablet) aspirin 81 mg tablet,delayed 81 mg PO DAILY #90 tabs 11/14/20 08/29/22 release blood sugar diagnostic (FreeStyle #360 ea 08/01/21 06/12/22 Test strips) empagliflozin 25 mg tablet 25 mg PO QAM #90 tabs 09/27/21 08/29/22 (Jardiance) metoprolol tartrate 25 mg tablet 25 mg PO Q12H #180 tabs 12/04/21 08/29/22 pen needle,diabetic dual safty 30 #100 ea 12/04/21 06/12/22 gauge x 3/16 (BD AutoShield Duo Pen Needle) metronidazole 0.75 % topical cream 1 applic topical QHS #45 grams 01/09/22 08/29/22 tadalafil 10 mg tablet 10 mg PO ONCE PRN sexual activity 01/09/22 06/12/22 #10 tabs ascorbic acid (vitamin C) 1,000 mg 1 g PO DAILY 05/21/22 08/29/22 capsule biotin 1,000 mcg chewable tablet 1,000 mcg PO DAILY 05/21/22 08/29/22 insulin glargine 100 unit/mL (3 20 unit (0.2 mL) subcut QHS #15 mL 05/21/22 08/29/22 mL) subcutaneous pen (Basaglar KwikPen U-100 Insulin) magnesium 200 mg tablet 400 mg PO DAILY 05/21/22 08/29/22 allopurinol 300 mg tablet 300 mg PO .mwf 05/28/22 08/29/22 Previous Rx's Medication Instructions Recorded aspirin 81 mg tablet,delayed 81 mg PO DAILY #90 tabs 11/14/20 release blood sugar diagnostic (FreeStyle #360 ea 08/01/21 Test strips) empagliflozin 25 mg tablet 25 mg PO QAM #90 tabs 09/27/21 (Jardiance) metoprolol tartrate 25 mg tablet 25 mg PO Q12H #180 tabs 12/04/21 pen needle,diabetic dual safty 30 #100 ea 12/04/21 gauge x 3/16 (BD AutoShield Duo Pen Needle) metronidazole 0.75 % topical cream 1 applic topical QHS #45 grams 01/09/22 tadalafil 10 mg tablet 10 mg PO ONCE PRN sexual activity 01/09/22 #10 tabs insulin glargine 100 unit/mL (3 20 unit (0.2 mL) subcut QHS #15 mL 05/21/22 mL) subcutaneous pen (Basaglar KwikPen U-100 Insulin) Allergies Allergy/AdvReac Type Severity Reaction Status Date / Time morphine AdvReac Intermediate Narcotic Verified 08/29/22 16:44 induced constipation General Stated Complaint: Abd Prob DELMY: 3 PFSH All Active Problems (Updated 08/31/22 @ 13:40 by TONY Earl) Pancreatitis (Acute) Diabetes (Acute) Hypertension (Acute) Discharge planning issues (Acute) Pancreatic pseudocyst (Chronic) Alcohol intake above recommended sensible limits (Chronic) Essential hypertension (Chronic 01/10/13) Hyperlipidemia (Chronic 07/15/12) Male erectile disorder (Chronic) normal testosterone Rosacea (Chronic) Tobacco dependence due to chewing tobacco (Chronic) Onychomycosis (Chronic) on fingers and toes; declines to treat due to possible medication side effects. Anxiety disorder (Chronic) Hypomagnesemia (Acute) Hypokalemia (Acute) Thrombocytopenia (Acute) Uncontrolled type 2 diabetes mellitus with hyperglycemia, with long-term current use of insulin (Chronic) Medical History (Updated 08/31/22 @ 13:40 by TONY Earl) Acute pancreatitis (12/19/13) 12/20/13,11/04/17, 04/2022 Atrial fibrillation Stable. History during hospitalization in 2018, negative Zio patch for 48 hrs. Cerebellar lesion ruled out with MRI Depression a. inpatient admission Surgical History H/O arthroscopy of right knee Family History Grandfather , [place] at age 54. Myocardial infarction Father Prostate cancer Grandfather Personal history of malignant neoplasm Social History (Updated 05/30/22 @ 12:38 by Rebeca Perry) Smoking/Tobacco Use Status: Former Tobacco Use Smokeless tobacco user: chewing tobacco Counseling given: provider counseling Smoking risk assessment performed?: Yes Alcohol Intake: current Alcohol Intake frequency: a few times a week Drug use: Never Substance use type: does not use Household members: none Housing: house Number of Children: 3 Education Level: high school current occupation: Currently unemployed Pets and animals: Yes Pets and animals: dog(s) Sexually active: No What is your relationship status?: How often do you get together with friends or relatives?: once per week Panel score (0-1 are the most socially isolated patients): 0 What type of physical activity do you participate in: walking Do you feel safe at home: Yes Do you feel safe in your relationship?: Yes Course Vital Signs Vital signs: Vital Signs Temperature 36.5 C 08/29/22 12:52 Pulse 85 08/29/22 12:52 Respiratory Rate 18 08/29/22 12:52 Blood Pressure 153/88 H 08/29/22 12:52 Pulse Oximetry 99 08/29/22 12:52 Temperature 36.5 C 08/29/22 12:52 Temperature Source Oral 08/29/22 12:52 Pulse 88 08/29/22 13:50 Pulse 105 H 08/29/22 14:20 Respiratory Rate 13 08/29/22 14:20 Respiratory Effort Normal, Non-Labored 08/29/22 12:54 Blood Pressure 160/88 H 08/29/22 13:50 Blood Pressure Mean 106 08/29/22 13:50 Blood Pressure Position Sitting 08/29/22 12:52 Pulse Oximetry 99 08/29/22 12:52 Oxygen Delivery Method Room Air 08/29/22 12:52 Oxygen Flow Rate 0 08/29/22 12:52 Lab/Test Results Lab/Test Results: Laboratory Tests Range/Units 08/29/22 08/29/22 08/29/22 13:30 13:30 13:30 WBC (4.4-10.8) 10^3/uL 9.27 RBC (4.36-5.78) 10^6/uL 4.68 Hgb (13.5-17.5) g/dL 16.6 Hct (40.0-50.0) % 46.6 MCV (80-95) fL 100 H MCH (27.0-33.0) pg 35.5 H MCHC (32.0-36.0) % 35.6 RDW (11.8-14.1) % 12.2 Plt Count (130-400) 10^3/uL 150 MPV (8.0-11.0) fL 9.9 Immature Gran % 0.2 Neutrophils % 68.3 Lymphocytes % 18.7 Monocytes % 12.2 Eosinophils % 0.1 Basophils % 0.5 Nucleated RBC % (0.0-0.3) % 0.0 Absolute Neutrophils (1.2-6.7) 10^3/uL 6.33 Absolute Lymphocytes (1.2-3.4) 10^3/uL 1.73 Absolute Monocytes (0.1-0.8) 10^3/uL 1.13 H Absolute Eosinophils (0.0-0.7) 10^3/uL 0.01 Absolute Basophils (0.0-0.2) 10^3/uL 0.05 VBG pH (7.31-7.41) VBG pCO2 (41-51) mmHg VBG pO2 mmHg VBG HCO3 (23-28) mmol/L VBG Total CO2 (24-29) mmol/L VBG O2 Saturation % VBG Base Excess (-2-3) mmol/L Sodium (136-145) mmol/L 137 Potassium (3.5-5.1) mmol/L 3.7 Chloride (98-107) mmol/L 93 L Carbon Dioxide (21.0-32.0) mmol/L 27.8 Anion Gap (3-11) mmol/L 16.2 H BUN (7-18) mg/dL 6 L Creatinine (0.70-1.30) mg/dL 1.0 Est GFR (CKD-EPI 2020) (mL/min/1.73m2) 88.88 Glucose (74-106) mg/dL 335 H Calcium (8.5-10.1) mg/dL 10.7 H Magnesium (1.8-2.4) mg/dL 1.2 L Total Bilirubin (0.2-1.0) mg/dL 1.0 AST (15-37) U/L 77 H ALT (16-63) U/L 64 H Alkaline Phosphatase (46-116) U/L 112 Troponin I (<or=60) ng/L < 50 Cancelled Total Protein (6.4-8.2) g/dL 8.7 H Albumin (3.4-5.0) g/dL 4.4 Amylase (25-115) U/L 281 H Lipase (16-77) U/L > 375 H Ethyl Alcohol (<10) mg/dL < 3.0 Range/Units 08/29/22 14:13 WBC (4.4-10.8) 10^3/uL RBC (4.36-5.78) 10^6/uL Hgb (13.5-17.5) g/dL Hct (40.0-50.0) % MCV (80-95) fL MCH (27.0-33.0) pg MCHC (32.0-36.0) % RDW (11.8-14.1) % Plt Count (130-400) 10^3/uL MPV (8.0-11.0) fL Immature Gran % Neutrophils % Lymphocytes % Monocytes % Eosinophils % Basophils % Nucleated RBC % (0.0-0.3) % Absolute Neutrophils (1.2-6.7) 10^3/uL Absolute Lymphocytes (1.2-3.4) 10^3/uL Absolute Monocytes (0.1-0.8) 10^3/uL Absolute Eosinophils (0.0-0.7) 10^3/uL Absolute Basophils (0.0-0.2) 10^3/uL VBG pH (7.31-7.41) 7.36 VBG pCO2 (41-51) mmHg 44 VBG pO2 mmHg 49 VBG HCO3 (23-28) mmol/L 25 VBG Total CO2 (24-29) mmol/L 22 L VBG O2 Saturation % 82 VBG Base Excess (-2-3) mmol/L -1 Sodium (136-145) mmol/L Potassium (3.5-5.1) mmol/L Chloride (98-107) mmol/L Carbon Dioxide (21.0-32.0) mmol/L Anion Gap (3-11) mmol/L BUN (7-18) mg/dL Creatinine (0.70-1.30) mg/dL Est GFR (CKD-EPI 2020) (mL/min/1.73m2) Glucose (74-106) mg/dL Calcium (8.5-10.1) mg/dL Magnesium (1.8-2.4) mg/dL Total Bilirubin (0.2-1.0) mg/dL AST (15-37) U/L ALT (16-63) U/L Alkaline Phosphatase (46-116) U/L Troponin I (<or=60) ng/L Total Protein (6.4-8.2) g/dL Albumin (3.4-5.0) g/dL Amylase (25-115) U/L Lipase (16-77) U/L Ethyl Alcohol (<10) mg/dL
[2022-08-29] MEDS: MAGNESIUM SULFATE 2 GM/50 ML BAG IVPB ×2 (15:51→18:26)
--- NOTE | 2022-08-29 16:02 | W.PM.HP.N ---
Date of service: 08/29/22 Time of Service: 16:03 Assessment and Plan Assessment and plan (1) Pancreatitis: Status: Acute Assessment and plan: Lipase > [address], pseudo cyst stable clear liquids and oral meds only as tolerated, continue IVF - cari clear liquids and adv as cari pain management and antiemetics. (2) Diabetes: Status: Acute Assessment and plan: check blood sugars ac/hs and cover as needed with aspart Will hold oral antihyperglycemic agents Decreased nighttime Lantus insulin to 10 units until taking normal po intake. (3) Hypertension: Status: Acute Assessment and plan: Will continue home medications for hypertension management (4) Hypomagnesemia: Status: Acute Assessment and plan: Magnesium 1.2 - repleted 4 gm IV; monitor (5) Discharge planning issues: Status: Acute Assessment and plan: Will refer to case management for recovery coordinator or rehab. discussed with Dr Chamorro History of Present Illness History of Present Illness Chief Complaint: abd pain Narrative: This is a 56-year-old male patient history of diabetes mellitus type 2 alcohol use disorder who presents to the emergency department with abdominal pain following binge drinking. His work-up in the emergency department is consistent with pancreatitis for which she does have history also. Hemodynamically has been stable has been receiving IV fluids antiemetics and IV pain medication. Hospitalist services was contacted to admit to the medical surgical unit for further management. He was bolused with phenobarbital in anticipation of alcohol withdrawal. He will be closely monitored for symptoms Review of Systems All systems reviewed & are unremarkable except as noted in HPI and below PFSH All Active Problems (Updated 08/29/22 @ 17:31 by Cami Wen NP) Pancreatitis (Acute) Diabetes (Acute) Hypertension (Acute) Discharge planning issues (Acute) Pancreatic pseudocyst (Chronic) Alcohol intake above recommended sensible limits (Chronic) Essential hypertension (Chronic 01/10/13) Hyperlipidemia (Chronic 07/15/12) Male erectile disorder (Chronic) normal testosterone Rosacea (Chronic) Tobacco dependence due to chewing tobacco (Chronic) Onychomycosis (Chronic) on fingers and toes; declines to treat due to possible medication side effects. Anxiety disorder (Chronic) Hypomagnesemia (Acute) Hypokalemia (Acute) Thrombocytopenia (Acute) Uncontrolled type 2 diabetes mellitus with hyperglycemia, with long-term current use of insulin (Chronic) Medical History (Updated 08/29/22 @ 17:31 by Cami Wen NP) Acute pancreatitis (12/19/13) 12/20/13,11/04/17, 04/2022 Atrial fibrillation Stable. History during hospitalization in 2018, negative Zio patch for 48 hrs. Cerebellar lesion ruled out with MRI Depression a. inpatient admission Surgical History H/O arthroscopy of right knee Family History Grandfather , [place] at age 54. Myocardial infarction Father Prostate cancer Grandfather Personal history of malignant neoplasm Social History (Updated 05/30/22 @ 12:38 by Rebeca Perry) Smoking/Tobacco Use Status: Former Tobacco Use Smokeless tobacco user: chewing tobacco Counseling given: provider counseling Smoking risk assessment performed?: Yes Alcohol Intake: current Alcohol Intake frequency: a few times a week Drug use: Never Substance use type: does not use Household members: none Housing: house Number of Children: 3 Education Level: high school current occupation: Currently unemployed Pets and animals: Yes Pets and animals: dog(s) Sexually active: No What is your relationship status?: How often do you get together with friends or relatives?: once per week Panel score (0-1 are the most socially isolated patients): 0 What type of physical activity do you participate in: walking Do you feel safe at home: Yes Do you feel safe in your relationship?: Yes Meds Allergies and Home Medications Allergies Allergy/AdvReac Type Severity Reaction Status Date / Time morphine AdvReac Intermediate Narcotic Verified 08/29/22 16:44 induced constipation Home Medications Medication Instructions Recorded Confirmed Type multivitamin (Daily Multi-Vitamin 1 ea PO DAILY 10/29/16 08/29/22 History tablet) aspirin 81 mg tablet,delayed 81 mg PO DAILY #90 tabs 11/14/20 08/29/22 Rx release blood sugar diagnostic (FreeStyle #360 ea 08/01/21 06/12/22 Rx Test strips) empagliflozin 25 mg tablet 25 mg PO QAM #90 tabs 09/27/21 08/29/22 Rx (Jardiance) metoprolol tartrate 25 mg tablet 25 mg PO Q12H #180 tabs 12/04/21 08/29/22 Rx pen needle,diabetic dual safty 30 #100 ea 12/04/21 06/12/22 Rx gauge x 3/16 (BD AutoShield Duo Pen Needle) metronidazole 0.75 % topical cream 1 applic topical QHS #45 grams 01/09/22 08/29/22 Rx tadalafil 10 mg tablet 10 mg PO ONCE PRN sexual activity 01/09/22 06/12/22 Rx #10 tabs ascorbic acid (vitamin C) 1,000 mg 1 g PO DAILY 05/21/22 08/29/22 History capsule biotin 1,000 mcg chewable tablet 1,000 mcg PO DAILY 05/21/22 08/29/22 History insulin glargine 100 unit/mL (3 20 unit (0.2 mL) subcut QHS #15 mL 05/21/22 08/29/22 Rx mL) subcutaneous pen (Basaglar KwikPen U-100 Insulin) magnesium 200 mg tablet 400 mg PO DAILY 05/21/22 08/29/22 History allopurinol 300 mg tablet 300 mg PO .mwf 05/28/22 08/29/22 History Exam Const General: cooperative Orientation: alert and awake HENMT Head: normal to inspection Ears: hearing grossly normal bilaterally General nose exam: external nose normal Mouth: moist mucous membranes Eyes Periorbital: periorbital findings abnormal left periorbital ecchymosis (old, yellowish) Sclera: sclerae normal Pupils: PERRL EOM: EOM intact bilaterally Neck Neck: normal visual inspection Chest Chest: normal inspection of the chest Resp Effort & Inspection: normal respiratory effort and no respiratory distress Auscultation: clear to auscultation bilaterally Cardio Rate: regular rate Rhythm: regular rhythm GI Inspection: normal to inspection Palpation: soft and tender in the epigastrum, in the LLQ and in the RLQ Skin General skin exam: no rashes or lesions noted and other (josy face) Neuro General: patient alert, patient awake and patient oriented x3 Cognition: normal cognition Speech: speech normal Motor: muscle tone normal throughout Sensory Exam: no sensory deficits noted Extrem General: normal to inspection, full ROM and no edema Psych Appearance: grossly normal Mental Status: mental status grossly normal Speech and Movement: speech and movement normal Mood: congruent mood Affect: normal affect Attitude: cooperative Results Labs 08/29/22 13:30 08/29/22 13:30 Labs: Laboratory Results - last 24 hr 08/29/22 08/29/22 08/29/22 13:30 13:30 13:30 WBC 9.27 RBC 4.68 Hgb 16.6 Hct 46.6 MCV 100 H MCH 35.5 H MCHC 35.6 RDW 12.2 Plt Count 150 MPV 9.9 Immature Gran % 0.2 Neutrophils % 68.3 Lymphocytes % 18.7 Monocytes % 12.2 Eosinophils % 0.1 Basophils % 0.5 Nucleated RBC % 0.0 Absolute Neutrophils 6.33 Absolute Lymphocytes 1.73 Absolute Monocytes 1.13 H Absolute Eosinophils 0.01 Absolute Basophils 0.05 VBG pH VBG pCO2 VBG pO2 VBG HCO3 VBG Total CO2 VBG O2 Saturation VBG Base Excess Sodium 137 Potassium 3.7 Chloride 93 L Carbon Dioxide 27.8 Anion Gap 16.2 H BUN 6 L Creatinine 1.0 Est GFR (CKD-EPI 2020) 88.88 Glucose 335 H Calcium 10.7 H Magnesium 1.2 L Total Bilirubin 1.0 AST 77 H ALT 64 H Alkaline Phosphatase 112 Troponin I < 50 Cancelled Total Protein 8.7 H Albumin 4.4 Amylase 281 H Lipase > 375 H Ethyl Alcohol < 3.0 08/29/22 14:13 WBC RBC Hgb Hct MCV MCH MCHC RDW Plt Count MPV Immature Gran % Neutrophils % Lymphocytes % Monocytes % Eosinophils % Basophils % Nucleated RBC % Absolute Neutrophils Absolute Lymphocytes Absolute Monocytes Absolute Eosinophils Absolute Basophils VBG pH 7.36 VBG pCO2 44 VBG pO2 49 VBG HCO3 25 VBG Total CO2 22 L VBG O2 Saturation 82 VBG Base Excess -1 Sodium Potassium Chloride Carbon Dioxide Anion Gap BUN Creatinine Est GFR (CKD-EPI 2020) Glucose Calcium Magnesium Total Bilirubin AST ALT Alkaline Phosphatase Troponin I Total Protein Albumin Amylase Lipase Ethyl Alcohol Last Vital Signs Temp 36.5 C 08/29/22 12:52 Pulse 88 08/29/22 13:50 Resp 13 08/29/22 14:20 BP 160/88 H 08/29/22 13:50 Pulse Ox 99 08/29/22 12:52 Time Spent Time spent with Patient: 40-54 minutes Time was spent: preparing to see the patient(eg.review tests), obtaining and/or reviewing separately otained hiistory, ordering medications,tests, procedures, indepentently interpreting results and counseling the patient
[2022-08-29 16:48] LABS: Troponin I < 50 ng/L (<or=60)
[2022-08-29] MEDS: Lactated Ringers 1,000 ML 125 ML IV (17:33)
[2022-08-29] MEDS: PHENobarbital 200 MG in Normal Saline 50 ML 100 MG IVPB (17:33)
[2022-08-29] MEDS: Ketorolac 15 MG/ML VIAL IVP ×2 (17:39→23:08)
[2022-08-29 17:57] LABS: Bilirubin Negative (Negative); Blood Trace-lysed (Negative); Clarity Clear (Clear); Glucose 500 mg/dL (Negative); Ketones >=160 mg/dL (Negative); Leukocyte Esterase Negative (Negative); Nitrite Negative (Negative); Urobilinogen 0.2 mg/dL (Up to 0.2)
[2022-08-29 18:05] LABS: Bacteria Rare HPF (Negative); C & S Indicated? No; Crystals Negative HPF (Negative); Epithelial Cells Rare HPF (Negative); Mucus Negative (Negative); RBC 0-2 HPF (0-2); WBC 0-2 HPF (0-5)
[2022-08-29] MEDS: PHENobarbital 150 MG in Normal Saline 50 ML 100 MG IVPB ×2 (20:13→23:08)
[2022-08-29] MEDS: Metoprolol 25 MG TAB PO (20:14)
[2022-08-29] MEDS: Ondansetron 4 MG/2 ML VIAL IVP (21:27)
[2022-08-29] MEDS: Insulin Glargine 300 UNITS/3 ML PEN 10 UNITS SC (21:28)
[2022-08-30] MEDS: Lactated Ringers 1,000 ML 125 ML IV (01:33)
[2022-08-30] MEDS: HYDROmorphone 2 MG/ML SYR 1 MG IVP ×5 (02:21→23:26)
[2022-08-30 03:51] VITALS: BP 177/98; PULSE 92; RESP 18; TEMP 36.7; O2SAT 97
[2022-08-30] MEDS: Ketorolac 15 MG/ML VIAL IVP ×4 (05:04→23:26)
[2022-08-30] MEDS: Aspirin E.C. 81 MG TABEC PO (08:03)
[2022-08-30] MEDS: Metoprolol 25 MG TAB PO ×2 (08:03→21:12)
[2022-08-30 08:56] LABS: Lab Add On Test DONE
[2022-08-30 09:18] LABS: Hemoglobin A1C 9.9 % (<5.7)
--- NOTE | 2022-08-30 09:55 | PDOC.CMIN ---
Date of service: 08/30/22 Time of Service: 09:55 [facility] All Active Problems (Updated 10/07/23 @ 15:14 by Janessa Cantrell MD) Neuropathic pain (Acute) Gout, tophaceous (Acute) History of alcohol use disorder (Acute) none since hospital discharge 08/2022; 2 beers several days / week. Pancreatic pseudocyst (Chronic) Essential hypertension (Chronic 01/10/13) Hyperlipidemia (Chronic 07/15/12) Male erectile disorder (Chronic) normal testosterone Rosacea (Chronic) Tobacco dependence due to chewing tobacco (Chronic) Onychomycosis (Chronic) on fingers and toes; declines to treat due to possible medication side effects. Anxiety disorder (Chronic) managing with THC/CBD edibles GERD without esophagitis (Acute) Type 1.5 diabetes, managed as type 1 (Acute) Advanced care planning/counseling discussion (Acute) Chronic pancreatitis (Acute) Medical History (Updated 10/07/23 @ 15:14 by Janessa Cantrell MD) Palliative care encounter History of acute gouty arthritis Diabetic acidosis, type I Atrial fibrillation Stable. History during hospitalization in 2018, negative Zio patch for 48 hrs. Cerebellar lesion ruled out with MRI Depression a. inpatient admission Acute pancreatitis (12/19/13) 12/20/13,11/04/17, 04/2022 Surgical History H/O arthroscopy of right knee Family History Grandfather , [place] at age 54. Myocardial infarction Father Prostate cancer Grandfather Personal history of malignant neoplasm Social History Smoking/Tobacco Use Status: Former Tobacco Use Smokeless tobacco user: chewing tobacco Counseling given: provider counseling Smoking risk assessment performed?: Yes Alcohol Intake: current Alcohol Intake frequency: a few times a week Alcohol type: beer Drug use: Daily Substance use type: marijuana Household members: none Housing: house Number of Children: 3 Education Level: high school current occupation: Currently unemployed Pets and animals: Yes Pets and animals: dog(s) Sexually active: No What is your relationship status?: How often do you get together with friends or relatives?: once per week Panel score (0-1 are the most socially isolated patients): 0 What type of physical activity do you participate in: walking Do you feel safe at home: Yes Do you feel safe in your relationship?: Yes
[2022-08-30] MEDS: Normal Saline Flush 10 ML SYR IVP (11:07)
[2022-08-30 11:13] VITALS: BP 115/64; PULSE 94; RESP 18; TEMP 36.5; O2SAT 99
--- NOTE | 2022-08-30 11:56 | W.PM.PROGNOT ---
Date of Service Date of service: 08/30/22 Time of Service: 11:56 Assessment and Plan Assessment and plan (1) Pancreatitis: Status: Acute Assessment and plan: continue to have pain, no fever overnight, hemodynamically stable. on admission Lipase > [address], pseudo cyst stable clear liquids and oral meds only as tolerated, continue IVF - cari clear liquids and adv as cari continue pain management and antiemetics. (2) Diabetes: Status: Acute Assessment and plan: check blood sugars ac/hs and cover as needed with aspart Will hold oral antihyperglycemic agents Decreased nighttime Lantus insulin to 10 units until taking normal po intake. (3) Hypertension: Status: Acute Assessment and plan: Will continue home medications for hypertension management (4) Hypomagnesemia: Status: Acute Assessment and plan: Magnesium 1.2 - repleted 4 gm IV check in am (5) Discharge planning issues: Status: Acute Assessment and plan: Will refer to case management for assistant men's lacrosse coach or rehab. discussed with Dr Chamorro Subjective Subjective Patient reports: still having pain, voiding w/o difficulty and afebrile; denies shortness of breath Exam Const General: cooperative Orientation: alert and awake HENMT Head: normal to inspection Ears: hearing grossly normal bilaterally General nose exam: external nose normal Mouth: moist mucous membranes Eyes Periorbital: periorbital findings abnormal left periorbital ecchymosis (old, yellowish) Sclera: sclerae normal Pupils: PERRL EOM: EOM intact bilaterally Neck Neck: normal visual inspection Chest Chest: normal inspection of the chest Resp Effort & Inspection: normal respiratory effort and no respiratory distress Auscultation: clear to auscultation bilaterally Cardio Rate: regular rate Rhythm: regular rhythm GI Inspection: normal to inspection Palpation: soft and tender in the epigastrum, in the LLQ and in the RLQ Skin General skin exam: no rashes or lesions noted and other (josy face) Neuro General: patient alert, patient awake and patient oriented x3 Cognition: normal cognition Speech: speech normal Motor: muscle tone normal throughout Sensory Exam: no sensory deficits noted Extrem General: normal to inspection, full ROM and no edema Psych Appearance: grossly normal Mental Status: mental status grossly normal Speech and Movement: speech and movement normal Mood: congruent mood Affect: normal affect Attitude: cooperative Objective Last Vital Signs Temp 36.5 C 08/30/22 11:13 Pulse 94 H 08/30/22 11:13 Resp 18 08/30/22 11:13 BP 115/64 08/30/22 11:13 Pulse Ox 99 08/30/22 11:13 Laboratory Results - last 24 hr 08/29/22 08/29/22 08/29/22 13:30 13:30 13:30 WBC 9.27 RBC 4.68 Hgb 16.6 Hct 46.6 MCV 100 H MCH 35.5 H MCHC 35.6 RDW 12.2 Plt Count 150 MPV 9.9 Immature Gran % 0.2 Neutrophils % 68.3 Lymphocytes % 18.7 Monocytes % 12.2 Eosinophils % 0.1 Basophils % 0.5 Nucleated RBC % 0.0 Absolute Neutrophils 6.33 Absolute Lymphocytes 1.73 Absolute Monocytes 1.13 H Absolute Eosinophils 0.01 Absolute Basophils 0.05 VBG pH VBG pCO2 VBG pO2 VBG HCO3 VBG Total CO2 VBG O2 Saturation VBG Base Excess Sodium 137 Potassium 3.7 Chloride 93 L Carbon Dioxide 27.8 Anion Gap 16.2 H BUN 6 L Creatinine 1.0 Est GFR (CKD-EPI 2020) 88.88 Glucose 335 H Hemoglobin A1c Calcium 10.7 H Magnesium 1.2 L Total Bilirubin 1.0 AST 77 H ALT 64 H Alkaline Phosphatase 112 Troponin I < 50 Cancelled Total Protein 8.7 H Albumin 4.4 Amylase 281 H Lipase > 375 H Urine Color Urine Clarity Urine pH Ur Specific [place] Urine Protein Urine Ketones Urine Blood Urine Nitrite Urine Bilirubin Urine Urobilinogen Ur Leukocyte Esterase Urine RBC Urine WBC Ur Epithelial Cells Urine Crystals Urine Bacteria Urine Mucus Ur Culture Indicated? Urine Glucose Ethyl Alcohol < 3.0 Add-On Test Request 08/29/22 08/29/22 08/29/22 13:30 14:13 16:20 WBC RBC Hgb Hct MCV MCH MCHC RDW Plt Count MPV Immature Gran % Neutrophils % Lymphocytes % Monocytes % Eosinophils % Basophils % Nucleated RBC % Absolute Neutrophils Absolute Lymphocytes Absolute Monocytes Absolute Eosinophils Absolute Basophils VBG pH 7.36 VBG pCO2 44 VBG pO2 49 VBG HCO3 25 VBG Total CO2 22 L VBG O2 Saturation 82 VBG Base Excess -1 Sodium Potassium Chloride Carbon Dioxide Anion Gap BUN Creatinine Est GFR (CKD-EPI 2020) Glucose Hemoglobin A1c 9.9 H Calcium Magnesium Total Bilirubin AST ALT Alkaline Phosphatase Troponin I < 50 Total Protein Albumin Amylase Lipase Urine Color Urine Clarity Urine pH Ur Specific [place] Urine Protein Urine Ketones Urine Blood Urine Nitrite Urine Bilirubin Urine Urobilinogen Ur Leukocyte Esterase Urine RBC Urine WBC Ur Epithelial Cells Urine Crystals Urine Bacteria Urine Mucus Ur Culture Indicated? Urine Glucose Ethyl Alcohol Add-On Test Request 08/29/22 08/30/22 17:28 08:55 WBC RBC Hgb Hct MCV MCH MCHC RDW Plt Count MPV Immature Gran % Neutrophils % Lymphocytes % Monocytes % Eosinophils % Basophils % Nucleated RBC % Absolute Neutrophils Absolute Lymphocytes Absolute Monocytes Absolute Eosinophils Absolute Basophils VBG pH VBG pCO2 VBG pO2 VBG HCO3 VBG Total CO2 VBG O2 Saturation VBG Base Excess Sodium Potassium Chloride Carbon Dioxide Anion Gap BUN Creatinine Est GFR (CKD-EPI 2020) Glucose Hemoglobin A1c Calcium Magnesium Total Bilirubin AST ALT Alkaline Phosphatase Troponin I Total Protein Albumin Amylase Lipase Urine Color Yellow Urine Clarity Clear Urine pH 5.0 Ur Specific [place] 1.010 Urine Protein Trace H Urine Ketones >=160 H Urine Blood Trace-lysed H Urine Nitrite Negative Urine Bilirubin Negative Urine Urobilinogen 0.2 Ur Leukocyte Esterase Negative Urine RBC 0-2 Urine WBC 0-2 Ur Epithelial Cells Rare Urine Crystals Negative Urine Bacteria Rare Urine Mucus Negative Ur Culture Indicated? No Urine Glucose 500 H Ethyl Alcohol Add-On Test Request DONE Time Spent with Patient Time Spent with Patient: 25-34 minutes Time was spent: preparing to see the patient(eg.review tests), obtaining and/or reviewing separately otained hiistory, ordering medications,tests, procedures, indepentently interpreting results and counseling the patient
[2022-08-30] MEDS: Insulin Aspart 300 UNITS/3 ML PEN SC ×3 (12:12→21:13)
[2022-08-30 14:49] VITALS: BP 120/81; PULSE 93; RESP 18; TEMP 36.5; O2SAT 99
[2022-08-30] MEDS: Insulin Glargine 300 UNITS/3 ML PEN 10 UNITS SC (21:12)
[2022-08-30] MEDS: Ondansetron 4 MG/2 ML VIAL IVP (23:26)
[2022-08-30 23:53] VITALS: BP 138/86; PULSE 83; RESP 18; TEMP 36.5; O2SAT 97
[2022-08-31] MEDS: Lactated Ringers 1,000 ML 125 ML IV ×2 (05:34→12:28)
[2022-08-31] MEDS: Ketorolac 15 MG/ML VIAL IVP ×4 (05:34→23:14)
[2022-08-31 06:05] VITALS: BP 135/82; PULSE 83; RESP 18; TEMP 36.8; O2SAT 98
[2022-08-31 07:19] LABS: Abs Immature Grans 0.07 10^3/uL (0.0-0.06); Absolute Basophil Count 0.07 10^3/uL (0.0-0.2); Absolute Eosinophil Count 0.03 10^3/uL (0.0-0.7); Absolute Lymphocyte Count 1.42 10^3/uL (1.2-3.4); Absolute Monocyte Count 1.12 10^3/uL (0.1-0.8); Absolute Neutrophil Count 7.53 10^3/uL (1.2-6.7); Basophils % 0.7; Eosinophils % 0.3; HCT 43.3 % (40.0-50.0); HGB 14.9 g/dL (13.5-17.5); Immature Grans % 0.7; Lymphocytes % 13.9; MCH 35.5 pg (27.0-33.0); MCHC 34.4 % (32.0-36.0); MCV 103 fL (80-95); MPV 10.4 fL (8.0-11.0); Monocytes % 10.9; Neutrophils % 73.5; RDW 12.2 % (11.8-14.1); RDW-SD 46.6 fL; WBC 10.24 10^3/uL (4.4-10.8)
[2022-08-31 07:45] LABS: ALT 40 U/L (16-63); AST 45 U/L (15-37); Albumin 3.2 g/dL (3.4-5.0); Alkaline Phosphatase 102 U/L (46-116); BUN 11 mg/dL (7-18); Bilirubin, Total 1.1 mg/dL (0.2-1.0); CREATININE 1.4 mg/dL (0.70-1.30); Calcium 8.9 mg/dL (8.5-10.1); Chloride 95 mmol/L (98-107); Estimated GFR 59.36 (mL/min/1.73m2); Glucose 235 mg/dL (74-106); Magnesium 1.4 mg/dL (1.8-2.4); Potassium 3.6 mmol/L (3.5-5.1); Sodium 134 mmol/L (136-145); Total Protein 7.1 g/dL (6.4-8.2)
[2022-08-31 08:32] LABS: Diff Comment Diff Reviewed; Platelet Count 96 10^3/uL (130-400); RBC Morphology Normal
[2022-08-31] MEDS: Metoprolol 25 MG TAB PO ×2 (09:12→21:51)
[2022-08-31] MEDS: Aspirin E.C. 81 MG TABEC PO (09:12)
[2022-08-31] MEDS: Insulin Aspart 300 UNITS/3 ML PEN SC ×3 (09:13→21:52)
[2022-08-31] MEDS: Normal Saline Flush 10 ML SYR IVP (09:13)
[2022-08-31] MEDS: Enoxaparin 40 MG/0.4 ML SYR SC (09:13)
[2022-08-31] MEDS: Calcium Carbonate *TUMS* 500 MG CHEW 1000 MG PO (09:43)
[2022-08-31] MEDS: Pantoprazole 40 MG VIAL IVP (09:43)
[2022-08-31] MEDS: Acetaminophen 325 MG TAB 650 MG PO ×2 (09:43→15:28)
[2022-08-31] MEDS: Lactated Ringers 1,000 ML 1000 ML IV (11:18)
--- NOTE | 2022-08-31 13:57 | W.PM.PROGNOT ---
Date of Service Date of service: 08/31/22 Time of Service: 13:57 Assessment and Plan Assessment and plan (1) Pancreatitis: Status: Acute Assessment and plan: continue to have pain, no fever overnight, hemodynamically stable. on admission Lipase > [address], pseudo cyst stable clear liquids and oral meds only as tolerated, continue IVF - cari clear liquids and adv as cari continue pain management and antiemetics. (2) Diabetes: Status: Acute Assessment and plan: check blood sugars ac/hs and cover as needed with aspart Will hold oral antihyperglycemic agents Decreased nighttime Lantus insulin to 10 units until taking normal po intake. (3) Hypertension: Status: Acute Assessment and plan: Will continue home medications for hypertension management (4) Hypomagnesemia: Status: Acute Assessment and plan: Magnesium 1.2 - repleted 4 gm IV check in am (5) Discharge planning issues: Status: Acute Assessment and plan: Will refer to case management for control and recovery combat rescue or rehab. discussed with Dr Chamorro Subjective Subjective Patient reports: no new complaints, feels better, pain is less, tolerating liquids well and afebrile; denies shortness of breath Exam Const General: cooperative Orientation: alert and awake HENMT Head: normal to inspection Ears: hearing grossly normal bilaterally General nose exam: external nose normal Mouth: moist mucous membranes Eyes Periorbital: periorbital findings abnormal left periorbital ecchymosis (old, yellowish) Sclera: sclerae normal Pupils: PERRL EOM: EOM intact bilaterally Neck Neck: normal visual inspection Chest Chest: normal inspection of the chest Resp Effort & Inspection: normal respiratory effort and no respiratory distress Auscultation: clear to auscultation bilaterally Cardio Rate: regular rate Rhythm: regular rhythm GI Inspection: normal to inspection Palpation: soft and tender in the epigastrum, in the LLQ and in the RLQ Skin General skin exam: no rashes or lesions noted and other (josy face) Neuro General: patient alert, patient awake and patient oriented x3 Cognition: normal cognition Speech: speech normal Motor: muscle tone normal throughout Sensory Exam: no sensory deficits noted Extrem General: normal to inspection, full ROM and no edema Psych Appearance: grossly normal Mental Status: mental status grossly normal Speech and Movement: speech and movement normal Mood: congruent mood Affect: normal affect Attitude: cooperative Objective Last Vital Signs Temp 36.8 C 08/31/22 06:05 Pulse 83 08/31/22 06:05 Resp 18 08/31/22 06:05 BP 135/82 08/31/22 06:05 Pulse Ox 98 08/31/22 06:05 Laboratory Results - last 24 hr 08/31/22 08/31/22 06:17 06:17 WBC 10.24 RBC 4.20 L Hgb 14.9 Hct 43.3 MCV 103 H MCH 35.5 H MCHC 34.4 RDW 12.2 Plt Count 96 L MPV 10.4 Immature Gran % 0.7 Neutrophils % 73.5 Lymphocytes % 13.9 Monocytes % 10.9 Eosinophils % 0.3 Basophils % 0.7 Nucleated RBC % 0.0 Absolute Neutrophils 7.53 H Absolute Lymphocytes 1.42 Absolute Monocytes 1.12 H Absolute Eosinophils 0.03 Absolute Basophils 0.07 RBC Morphology Normal Sodium 134 L Potassium 3.6 Chloride 95 L Carbon Dioxide 24.0 Anion Gap 15.0 H BUN 11 Creatinine 1.4 H Est GFR (CKD-EPI 2020) 59.36 Glucose 235 H Calcium 8.9 Magnesium 1.4 L Total Bilirubin 1.1 H AST 45 H ALT 40 Alkaline Phosphatase 102 Total Protein 7.1 Albumin 3.2 L Time Spent with Patient Time Spent with Patient: 25-34 minutes Time was spent: preparing to see the patient(eg.review tests), obtaining and/or reviewing separately otained hiistory, ordering medications,tests, procedures, indepentently interpreting results and counseling the patient
[2022-08-31 14:42] VITALS: BP 114/72; PULSE 81; RESP 18; TEMP 36.4; O2SAT 96
[2022-08-31] MEDS: MAGNESIUM SULFATE 2 GM/50 ML BAG IVPB (17:07)
[2022-08-31] MEDS: HYDROmorphone 2 MG/ML SYR 1 MG IVP (21:51)
[2022-08-31] MEDS: Insulin Glargine 300 UNITS/3 ML PEN 10 UNITS SC (21:52)
[2022-08-31] MEDS: Lactated Ringers 1,000 ML 175 ML IV (21:57)
[2022-08-31 21:58] VITALS: BP 148/91; PULSE 77; RESP 16; TEMP 36.7; O2SAT 97
[2022-09-01] MEDS: Lactated Ringers 1,000 ML 175 ML IV ×4 (03:13→20:02)
[2022-09-01] MEDS: Ketorolac 15 MG/ML VIAL IVP ×3 (06:15→17:01)
[2022-09-01 07:06] LABS: Abs Immature Grans 0.06 10^3/uL (0.0-0.06); Absolute Basophil Count 0.05 10^3/uL (0.0-0.2); Absolute Eosinophil Count 0.07 10^3/uL (0.0-0.7); Absolute Lymphocyte Count 1.24 10^3/uL (1.2-3.4); Absolute Neutrophil Count 6.16 10^3/uL (1.2-6.7); Basophils % 0.6; Eosinophils % 0.8; HCT 40.8 % (40.0-50.0); HGB 14.1 g/dL (13.5-17.5); Immature Grans % 0.7; Lymphocytes % 14.8; MCH 35.6 pg (27.0-33.0); MCHC 34.6 % (32.0-36.0); MCV 103 fL (80-95); MPV 10.1 fL (8.0-11.0); Monocytes % 9.5; Neutrophils % 73.6; Platelet Count 100 10^3/uL (130-400); RBC 3.96 10^6/uL (4.36-5.78); RDW 12.3 % (11.8-14.1); RDW-SD 46.9 fL; WBC 8.38 10^3/uL (4.4-10.8)
[2022-09-01 07:19] VITALS: BP 128/88; PULSE 88; RESP 18; TEMP 36.6; O2SAT 97
[2022-09-01 07:19] LABS: BUN 9 mg/dL (7-18); CREATININE 1.1 mg/dL (0.70-1.30); Chloride 95 mmol/L (98-107); Estimated GFR 79.28 (mL/min/1.73m2); Glucose 230 mg/dL (74-106); Magnesium 1.4 mg/dL (1.8-2.4); Potassium 3.8 mmol/L (3.5-5.1); Sodium 134 mmol/L (136-145)
[2022-09-01] MEDS: Insulin Aspart 300 UNITS/3 ML PEN SC ×4 (08:00→22:00)
[2022-09-01] MEDS: Pantoprazole 40 MG TABCR PO (08:01)
[2022-09-01] MEDS: Normal Saline Flush 10 ML SYR IVP ×2 (08:02→11:55)
[2022-09-01] MEDS: Metoprolol 25 MG TAB PO ×2 (08:02→21:20)
[2022-09-01] MEDS: Acetaminophen 325 MG TAB 650 MG PO ×2 (08:02→14:08)
[2022-09-01] MEDS: Aspirin E.C. 81 MG TABEC PO (08:02)
[2022-09-01] MEDS: Enoxaparin 40 MG/0.4 ML SYR SC (08:03)
[2022-09-01] MEDS: Magnesium Chloride 64 MG TABCR 128 MG PO ×2 (11:55→21:20)
[2022-09-01] MEDS: MAGNESIUM SULFATE 2 GM/50 ML BAG IVPB (11:59)
--- NOTE | 2022-09-01 14:40 | W.PM.PROGNOT ---
Date of Service Date of service: 09/01/22 Time of Service: 14:40 Assessment and Plan Assessment and plan (1) Pancreatitis: Status: Acute Assessment and plan: continue to have less pain, no fever overnight, hemodynamically stable. on admission Lipase > [address], pseudo cyst stable advance diet as tolerated, continue IVF titrate down pain management and antiemetics. (2) Constipation: Status: Acute Assessment and plan: will add bowel regimen, is passing flatus, no worsening nausea or vomiting, no worsening abdominal pain (3) Diabetes: Status: Acute Assessment and plan: check blood sugars ac/hs and cover as needed with aspart Will hold oral antihyperglycemic agents Decreased nighttime Lantus insulin to 10 units until taking normal po intake. (4) Hypertension: Status: Acute Assessment and plan: Will continue home medications for hypertension management (5) Hypomagnesemia: Status: Acute Assessment and plan: Magnesium 1.4 - repleted 2 gm IV, will repete today check in am (6) Discharge planning issues: Status: Acute Assessment and plan: Will refer to case management for power and recovery supervisor or rehab. discussed with Dr Sargent Subjective Subjective Patient reports: no new complaints, feels better, pain is less, tolerating liquids well, voiding w/o difficulty, no bowel movement and afebrile; denies shortness of breath Exam Const General: cooperative Orientation: alert and awake HENMT Head: normal to inspection Ears: hearing grossly normal bilaterally General nose exam: external nose normal Mouth: moist mucous membranes Eyes Periorbital: periorbital findings abnormal left periorbital ecchymosis (old, yellowish) Sclera: sclerae normal Pupils: PERRL EOM: EOM intact bilaterally Neck Neck: normal visual inspection Chest Chest: normal inspection of the chest Resp Effort & Inspection: normal respiratory effort and no respiratory distress Auscultation: clear to auscultation bilaterally Cardio Rate: regular rate Rhythm: regular rhythm GI Inspection: normal to inspection Palpation: soft and tender in the epigastrum, in the LLQ and in the RLQ Skin General skin exam: no rashes or lesions noted and other (josy face) Neuro General: patient alert, patient awake and patient oriented x3 Cognition: normal cognition Speech: speech normal Motor: muscle tone normal throughout Sensory Exam: no sensory deficits noted Extrem General: normal to inspection, full ROM and no edema Psych Appearance: grossly normal Mental Status: mental status grossly normal Speech and Movement: speech and movement normal Mood: congruent mood Affect: normal affect Attitude: cooperative Objective Last Vital Signs Temp 36.6 C 09/01/22 07:19 Pulse 88 09/01/22 07:19 Resp 18 09/01/22 07:19 BP 128/88 09/01/22 07:19 Pulse Ox 97 09/01/22 07:19 Laboratory Results - last 24 hr 09/01/22 09/01/22 09/01/22 06:54 06:54 06:54 WBC 8.38 RBC 3.96 L Hgb 14.1 Hct 40.8 MCV 103 H MCH 35.6 H MCHC 34.6 RDW 12.3 Plt Count 100 L MPV 10.1 Immature Gran % 0.7 Neutrophils % 73.6 Lymphocytes % 14.8 Monocytes % 9.5 Eosinophils % 0.8 Basophils % 0.6 Nucleated RBC % 0.0 Absolute Neutrophils 6.16 Absolute Lymphocytes 1.24 Absolute Monocytes 0.80 Absolute Eosinophils 0.07 Absolute Basophils 0.05 Sodium 134 L Potassium 3.8 Chloride 95 L Carbon Dioxide 24.0 Anion Gap 15.0 H BUN 9 Creatinine 1.1 Est GFR (CKD-EPI 2020) 79.28 Glucose 230 H Calcium 9.0 Magnesium 1.4 L Time Spent with Patient Time Spent with Patient: 25-34 minutes Time was spent: preparing to see the patient(eg.review tests), obtaining and/or reviewing separately otained hiistory, ordering medications,tests, procedures, indepentently interpreting results and counseling the patient
[2022-09-01] MEDS: Polyethylene Glycol 3350 17 GM PACKET PO (17:00)
[2022-09-01] MEDS: Docusate Sodium 100 MG CAP PO ×2 (17:01→21:20)
[2022-09-01 19:09] VITALS: BP 129/84; PULSE 82; RESP 16; TEMP 36; O2SAT 99
[2022-09-01] MEDS: HYDROmorphone 2 MG/ML SYR 1 MG IVP (21:19)
[2022-09-01] MEDS: Insulin Glargine 300 UNITS/3 ML PEN 10 UNITS SC (21:20)
--- NOTE | 2022-09-01 22:13 | PDOC.CMPRO ---
Date of service: 09/01/22 Time of Service: 22:13 Care Management Progress Note Progress Note Text Progress Note Text: S/O:Blayne was ambulating in the halls when CM met with him today. He was smiling and admitted that he is feeling much better. he showered and shaved today. Blayne is tolerating a regular diet and his pain is better controlled. He shared that he feels he may be ready for discharge soon. A: Blayne is a 56 year old man admitted on 08/29/22 with pancreatitis P:?Anticipate Blayne will discharge home via private vehicle with family when medically ready. He will follow up with community providers and discharge plan of care as prescribed. No new services are anticipated at this time. CM will continue to follow and support discharge planning needs.
[2022-09-02] MEDS: Ketorolac 15 MG/ML VIAL IVP ×3 (00:50→11:49)
[2022-09-02] MEDS: Lactated Ringers 1,000 ML 175 ML IV ×2 (01:13→06:32)
[2022-09-02 03:05] VITALS: BP 118/78; PULSE 80; RESP 16; TEMP 36.6; O2SAT 98
[2022-09-02 07:35] VITALS: BP 143/86; PULSE 73; RESP 16; TEMP 36.1; O2SAT 99
[2022-09-02] MEDS: Acetaminophen 325 MG TAB 650 MG PO (08:41)
[2022-09-02] MEDS: Docusate Sodium 100 MG CAP PO (08:41)
[2022-09-02] MEDS: Aspirin E.C. 81 MG TABEC PO (08:42)
[2022-09-02] MEDS: Magnesium Chloride 64 MG TABCR 128 MG PO (08:42)
[2022-09-02] MEDS: Metoprolol 25 MG TAB PO (08:42)
[2022-09-02] MEDS: Pantoprazole 40 MG TABCR PO (08:42)
[2022-09-02] MEDS: Insulin Aspart 300 UNITS/3 ML PEN SC ×2 (08:44→11:50)
--- NOTE | 2022-09-02 12:59 | W.PM.DS.N ---
Date of service: 09/02/22 Time of Service: 13:00 DS: Diagnosis Discharge Diagnosis (1) Pancreatitis: Status: Acute (2) Constipation: Status: Acute (3) Diabetes: Status: Acute (4) Hypertension: Status: Acute (5) Hypomagnesemia: Status: Acute Discharge Plan Disposition Patient Disposition: Home Condition: Improving Discharge Details Reason For Visit: Pancreatitis Admit Date/Time: 08/29/22 16:00 Admit Provider: Benjamin Chamorro Attending Provider: Benjamin Chamorro Primary Care Provider: Janessa Cantrell Hospital Course Hospital Course: This is a 56-year-old male patient history of diabetes mellitus type 2 alcohol use disorder who presents to the emergency department with abdominal pain following binge drinking.? His work-up in the emergency department is consistent with pancreatitis for which she does have history also.? Hemodynamically has been stable has been receiving IV fluids antiemetics and IV pain medication.? Hospitalist services was contacted to admit to the medical surgical unit for further management.? He was bolused with phenobarbital in anticipation of alcohol withdrawal.? He continued to receive IV hydration pain medicine and antiemetics symptoms slowly improved with bowel rest and his diet was slowly advanced. Hospital course complicated with constipation which resolved with bowel management. He had no symptoms of alcohol withdrawal. He has remained hemodynamically stable and ready for discharge to home now. He was advised to abstain from alcohol and will follow-up with his primary care provider. Discharge discussed with Dr. Sargent Home Meds and New Rx's Prescriptions: Continued allopurinol 300 mg tablet 300 mg PO .mwf aspirin 81 mg tablet,delayed release (DR/EC) 81 mg PO DAILY Qty: 90 3RF multivitamin [Daily Multi-Vitamin] 1 EACH tablet 1 ea PO DAILY (DME) FreeStyle Test Strip See Dose Instructions .ROUTE .MEDSUPPLY Qty: 360 3RF Dose Instruction: As directed Rx Instructions: qid Jardiance 25 mg tablet 25 mg PO QAM Qty: 90 1RF metoprolol tartrate 25 mg tablet 25 mg PO Q12H Qty: 180 3RF (DME) BD AutoShield Duo Pen Needle 30 gauge x 3/16 needle See Dose Instructions .ROUTE .MEDSUPPLY Qty: 100 3RF Dose Instruction: As directed Rx Instructions: test once/day metronidazole 0.75 % cream 1 applic TP QHS Qty: 45 12RF Rx Instructions: Apply to face. tadalafil 10 mg tablet 10 mg PO ONCE PRN (Reason: sexual activity) Qty: 10 2RF insulin glargine [Basaglar KwikPen U-100 Insulin] 100 unit/mL (3 mL) insulin pen 20 unit SC QHS Qty: 15 5RF magnesium 200 mg tablet 400 mg PO DAILY ascorbic acid (vitamin C) 1,000 mg capsule 1 g PO DAILY biotin 1,000 mcg tablet,chewable 1,000 mcg PO DAILY Discharge Instructions Instructions: Pancreatitis (DC) Additional Instructions: avoid alcohol. blood glucose monitoring as previously directed. Referrals: Janessa Cantrell MD [Primary Care Provider] - Activity:: Activity as Tolerated Equipment/Supplies:: No Equipment Needed Diet:: As Tolerated Discharge Orders Discharge Orders: Discharge Order (Routine); Ordered 09/02/22 Ordered By: Cami Wen DS: Summary Time Spent with Patient providing and/or coordinating discharge services: Less than 30 minutes Status at Discharge Functional status at discharge: independent ambulation Overall status at discharge: patient is back to baseline Mental Status: mental status grossly normal Speech and Movement: speech and movement normal Mood: congruent mood Affect: normal affect Exam Const General: cooperative Orientation: alert and awake HENMT Head: normal to inspection Ears: hearing grossly normal bilaterally General nose exam: external nose normal Mouth: moist mucous membranes Eyes Sclera: sclerae normal Pupils: PERRL EOM: EOM intact bilaterally Neck Neck: normal visual inspection Chest Chest: normal inspection of the chest Resp Effort & Inspection: normal respiratory effort and no respiratory distress Auscultation: clear to auscultation bilaterally Cardio Rate: regular rate Rhythm: regular rhythm GI Inspection: normal to inspection Palpation: soft Skin General skin exam: no rashes or lesions noted and other (josy face) Neuro General: patient alert, patient awake and patient oriented x3 Cognition: normal cognition Speech: speech normal Motor: muscle tone normal throughout Sensory Exam: no sensory deficits noted Extrem General: normal to inspection, full ROM and no edema Psych Appearance: grossly normal Mental Status: mental status grossly normal Speech and Movement: speech and movement normal Mood: congruent mood Affect: normal affect Attitude: cooperative DS: Data Vitals/I&O Vitals and I&O: Vital Signs Temperature 36.1 C L 09/02/22 07:35 Temperature Source Tympanic 09/02/22 07:35 Pulse 73 09/02/22 07:35 Pulse Rhythm Regular 09/01/22 21:24 Pulse 88 08/29/22 16:30 Respiratory Rate 16 09/02/22 07:35 Respiratory Effort Normal, Non-Labored 09/01/22 21:24 Respiratory Depth Normal 09/01/22 08:07 Respiratory Pattern Normal 09/01/22 08:07 Blood Pressure 143/86 H 09/02/22 07:35 Blood Pressure Mean 120 08/29/22 14:31 Blood Pressure Position Sitting 08/29/22 12:52 Pulse Oximetry 99 09/02/22 07:35 Oxygen Delivery Method Room Air 09/02/22 07:35 Oxygen Flow Rate 0 09/02/22 07:35 Pain Level 0 09/02/22 03:05 Comment BP called over radio 09/02/22 07:35 Intake & Output 09/01/22 09/02/22 09/02/22 23:59 11:59 23:59 Intake Total 2500 / 4482.500 1837.500 / 1837.500 Balance 2500 / 4482.500 1837.500 / 1837.500 Intake: IV 2000 / 3802.500 1837.500 / 1837.500 Oral 500 / 680 Other: Urine Appearance Clear Stool Size Moderate Moderate Stool Characteristics Hard Hard PFSH All Active Problems (Updated 09/01/22 @ 14:41 by Cami eWn NP) Constipation (Acute) Pancreatitis (Acute) Diabetes (Acute) Hypertension (Acute) Discharge planning issues (Acute) Pancreatic pseudocyst (Chronic) Alcohol intake above recommended sensible limits (Chronic) Essential hypertension (Chronic 01/10/13) Hyperlipidemia (Chronic 07/15/12) Male erectile disorder (Chronic) normal testosterone Rosacea (Chronic) Tobacco dependence due to chewing tobacco (Chronic) Onychomycosis (Chronic) on fingers and toes; declines to treat due to possible medication side effects. Anxiety disorder (Chronic) Hypomagnesemia (Acute) Hypokalemia (Acute) Thrombocytopenia (Acute) Uncontrolled type 2 diabetes mellitus with hyperglycemia, with long-term current use of insulin (Chronic) Medical History (Updated 09/01/22 @ 14:41 by Cami Wen NP) Acute pancreatitis (12/19/13) 12/20/13,11/04/17, 04/2022 Atrial fibrillation Stable. History during hospitalization in 2018, negative Zio patch for 48 hrs. Cerebellar lesion ruled out with MRI Depression a. inpatient admission Surgical History H/O arthroscopy of right knee Family History Grandfather , [place] at age 54. Myocardial infarction Father Prostate cancer Grandfather Personal history of malignant neoplasm Social History (Updated 05/30/22 @ 12:38 by Rebeca Perry) Smoking/Tobacco Use Status: Former Tobacco Use Smokeless tobacco user: chewing tobacco Counseling given: provider counseling Smoking risk assessment performed?: Yes Alcohol Intake: current Alcohol Intake frequency: a few times a week Drug use: Never Substance use type: does not use Household members: none Housing: house Number of Children: 3 Education Level: high school current occupation: Currently unemployed Pets and animals: Yes Pets and animals: dog(s) Sexually active: No What is your relationship status?: How often do you get together with friends or relatives?: once per week Panel score (0-1 are the most socially isolated patients): 0 What type of physical activity do you participate in: walking Do you feel safe at home: Yes Do you feel safe in your relationship?: Yes Time Spent with Patient Time Spent with Patient: <45 minutes Time was spent: preparing to see the patient(eg.review tests) and counseling the patient
[2022-09-02 15:37] VITALS: BP 132/81; PULSE 78; RESP 16; TEMP 36.7; O2SAT 98
== END 2022-09-02 16:00 | disposition home or self-care (01) | DRG 440 ==
LOC: ER 16:05 → MS 17:08
PROVIDERS: Nurse Practitioner Acute Care; Admitting Provider Internal Medicine; Emergency Provider Physician Assistant; PCP Family Medicine; Visit Provider Internal Medicine
DX: K85.90 Acute pancreatitis without necrosis or infection, unspecified (principal); E11.9 Type 2 diabetes mellitus without complications; I10 Essential (primary) hypertension; F32.A Depression, unspecified; F10.20 Alcohol dependence, uncomplicated; Z79.4 Long term (current) use of insulin; Z79.82 Long term (current) use of aspirin; E78.5 Hyperlipidemia, unspecified; F17.220 Nicotine dependence, chewing tobacco, uncomplicated; E83.42 Hypomagnesemia; F41.9 Anxiety disorder, unspecified; E87.6 Hypokalemia; I48.91 Unspecified atrial fibrillation; K59.00 Constipation, unspecified
CPT/HCPCS: 36415; 80048; 80053; 82805; 83690; 93005; 96361; 96374; 96376; 99285; J1650; 70450; 74177; 80320; 81003; 81015; 82150; 83036; 83735; 84484; 85025; 93010; 99223; 99233; 99238; J1170; J1885; J2405; J2560; J3490

== ENCOUNTER 2022-09-15 16:45 | Inpatient (IN) | payer BC, SELFPAY ==
[2022-09-15] VITALS (53 sets, daily range): BP systolic 70–165; BP diastolic 19–102; PULSE 107–162; RESP 17–36; TEMP 35.6–37.1; O2SAT 78–100
--- NOTE | 2022-09-15 17:00 | DI.CT_ITS ---
Exam(s) CT HEAD WO EXAM: CT HEAD WO CLINICAL HISTORY: confused, ams. TECHNIQUE: Imaging Protocol: Axial computed tomography images with coronal and sagittal reformatted images were created and reviewed COMPARISON: CT CT HEAD WO from 08/29/2022 FINDINGS: Ventricles and Extra axial spaces: Normal in size and morphology for the patient's age. Hemorrhage: None. Cerebral parenchyma: Normal. Midline shift: None. Brainstem/Cerebellum: Normal. Calvarium: Normal. Visualized Paranasal sinuses/Mastoids: There is mild mucosal thickening in the maxillary sinuses bila terally. Soft Tissues: Unremarkable. IMPRESSION: No acute intracranial process. RADIATION DOSE DELIVERED: 988.66mGy.cm Total DLP DATA REPOSITORY: All CT scans at this facility are submitted to the National Radiology Data Registry (NRDR) Dose Index Registry (DIR) with the [employer] (A[employer]). RADIATION OPTIMIZATION: All CT scans at this facility use at least one of these dose optimization te chniques: automated exposure control; mA and/or kV adjustment per patient size (includes targeted exa ms where dose is matched to clinical indication); or iterative reconstruction.
--- NOTE | 2022-09-15 17:00 | RT.EKG_ITS ---
APPROVED REPORT Exam: Resting ECG Reason for Exam: [facility] Patient Location: E HR:127 bpm ECG Measurements Heart Rate 127 AXIS LA 110 P 65 QRSd 108 QRS 8 QT 353 T 67 QTc 514 Conclusion Sinus tachycardia...rate> 99 Prolonged QT interval...QTc >500mS No ST segment or T wave abnormalities to suggest occlusive UT
--- NOTE | 2022-09-15 17:09 | DI.CT_ITS ---
Exam(s) CT CHEST/ABD/PEL W EXAM: CT CHEST/ABD/PEL W CLINICAL HISTORY: tachypnea, epigastric TTP, AMS unable provide hx TECHNIQUE: Imaging Protocol: Axial computed tomography images with coronal and sagittal reformatted images were created and reviewed CONTRAST MATERIAL: Intravenous: Omnipaque 350 contrast volume:100 mL Oral: No COMPARISON: CT CT ABDOMEN PELVIS W from 05/18/[address] ABDOMEN PELVIS W from 08/29/2022 FINDINGS: The examination is limited due to patient motion artifact. CHEST: Tracheobronchial tree: Patent where visualized. Pulmonary parenchyma: No consolidation or dominant measurable mass. There is a calcified granuloma in the right middle lobe. Visualized thyroid gland: Unremarkable. Mediastinum and Brunilda: No dominant adenopathy or fluid collection. The esophagus is distended. There is fluid in the esophagus to the level of the aortic arch. There is question of thickening of the wa ll of the distal esophagus. Pleura: No effusion or pneumothorax. Heart: The heart is not dilated. No coronary artery calcifications are seen. No pericardial effusion. Pulmonary arteries: The pulmonary arteries are inadequately opacified for evaluation of pulmonary emb ra. No large central pulmonary embolus is seen. Aorta: Thoracic aorta non-dilated. Lymph nodes: Within normal limits. Soft tissues: Gynecomastia. Bones:Within normal limits for the patient's age. ABDOMEN: Liver: There is fatty infiltration of the liver. No measurable mass. Portal, Superior Mesenteric, and Splenic Veins: The superior mesenteric and portal veins are patent. There again seen a tangle of vessels along the course of the splenic vein which may be collaterals. This is unchanged. Gallbladder and Biliary Tract: No radiodense calculus or dilation. Pancreas: The pancreas is heterogeneous. There is a persistent fluid collection seen in the body of the pancreas which has increased in size. It measures 6.1 x 2.6 cm. There is infiltration seen in t he region of the pancreas. Spleen: Normal. Adrenals: No masses seen. Kidneys: Normal size, contour and axis. No radiodense stones or obstructive uropathy. No masses seen. Abdominal Aorta: Abdominal portion non-dilated. Atherosclerosis. Bowel: There is diverticulosis seen in the colon, but no evidence of acute diverticulitis. There is no evidence of bowel obstruction. The stomach is distended. There is no bowel wall thickening. Clarisa endix is unremarkable. Peritoneal Cavity: No ascites, collection or mesenteric inflammatory response. No free air. Lymph Nodes: Within normal limits. Bones: Within normal limits for the patient's age. Soft Tissues: Unremarkable. PELVIS: Bladder: Symmetric distention, no gross wall thickening. Reproductive Organs: Unremarkable as visualized. Lymph Nodes: Within normal limits. Bones: Within normal limits. IMPRESSION: 1. Examination limited by patient motion artifact. 2. Wall thickening seen in the distal esophagus concerning for esophagitis. 3. Fluid seen within the esophagus which may reflect reflux. 4. Heterogeneous appearance to the pancreas with peripancreatic stranding noted. There is also been an increase in size of the pseudocyst. The findings are suggesting worsening pancreatitis. With a h eterogeneity of the pancreatic head, pancreatic necrosis cannot be excluded. RADIATION DOSE DELIVERED: 1,558.26mGy.cm Total DLP DATA REPOSITORY: All CT scans at this facility are submitted to the National Radiology Data Registry (NRDR) Dose Index Registry (DIR) with the [employer] (ACR). RADIATION OPTIMIZATION: All CT scans at this facility use at least one of these dose optimization te chniques: automated exposure control; mA and/or kV adjustment per patient size (includes targeted exa ms where dose is matched to clinical indication); or iterative reconstruction.
[2022-09-15 17:28] LABS: HCT 46.5 % (40.0-50.0); HGB 14.4 g/dL (13.5-17.5); MCH 34.5 pg (27.0-33.0); MCV 112 fL (80-95); MPV 10.7 fL (8.0-11.0); Platelet Count 375 10^3/uL (130-400); RBC 4.17 10^6/uL (4.36-5.78); RDW 12.6 % (11.8-14.1); RDW-SD 53.1 fL; WBC 21.33 10^3/uL (4.4-10.8)
[2022-09-15 17:41] LABS: Ammonia 77 umol/L (11-32)
[2022-09-15 17:45] LABS: Bilirubin Small (Negative); Blood Small (Negative); Clarity Clear (Clear); Glucose 500 mg/dL (Negative); Ketones >=160 mg/dL (Negative); Leukocyte Esterase Negative (Negative); Nitrite Negative (Negative); Urobilinogen 0.2 mg/dL (Up to 0.2)
[2022-09-15 17:51] LABS: ALT 28 U/L (16-63); AST 70 U/L (15-37); Albumin 3.2 g/dL (3.4-5.0); Alkaline Phosphatase 314 U/L (46-116); BUN 19 mg/dL (7-18); Bilirubin, Total 0.8 mg/dL (0.2-1.0); CREATININE 1.8 mg/dL (0.70-1.30); Calcium 10.8 mg/dL (8.5-10.1); Chloride 94 mmol/L (98-107); Glucose 492 mg/dL (74-106); Lipase 32 U/L (16-77); Magnesium 2.1 mg/dL (1.8-2.4); Potassium 5.5 mmol/L (3.5-5.1); Sodium 133 mmol/L (136-145); TSH (W/Ref FT4) 1.34 uIU/mL (0.36-3.74); Total Protein 8.7 g/dL (6.4-8.2)
[2022-09-15 17:54] LABS: *AMPHETAMINES SCREEN URINE Negative (Negative); *BARBITURATES SCREEN URINE Negative (Negative); *BENZODIAZEPINES SCREEN URINE Negative (Negative); Cannabinoids THC Negative (Negative); Cocaine Screen,Urine Negative (Negative); METHADONE URINE SCREEN Negative (Negative); OPIATES URINE SCREEN Negative (Negative)
[2022-09-15] MEDS: Thiamine 200 MG/2 ML VIAL 100 MG IV (17:54)
[2022-09-15 17:55] LABS: Absolute Lymphocyte Count 3.41 10^3/uL (1.2-3.4); Absolute Monocyte Count 3.41 10^3/uL (0.1-0.8); Absolute Neutrophil Count 14.29 10^3/uL (1.2-6.7); Bands % 7; Diff Comment Manual Differential; Myelocytes % 1
[2022-09-15] MEDS: Normal Saline 1,000 ML 1000 ML IV (17:55)
[2022-09-15] MEDS: fentaNYL 100 MCG/2 ML VIAL 50 MCG IVP (17:55)
[2022-09-15 17:57] LABS: Macrocytosis 2+
[2022-09-15 17:58] LABS: Tricyclic Antidepressants Negative (Negative)
[2022-09-15 17:59] LABS: Anion Gap 34.00001 mmol/L (3-11); ETHANOL BLOOD < 3.0 mg/dL (<10)
[2022-09-15 18:01] LABS: Bacteria Few HPF (Negative); C & S Indicated? No; Casts 0-2 Fine Granular LPF (Negative); Crystals Negative HPF (Negative); Epithelial Cells Rare HPF (Negative); Mucus Trace (Negative); RBC 0-2 HPF (0-2); WBC 0-2 HPF (0-5)
[2022-09-15 18:02] LABS: CO2 < 5.0 mmol/L (21.0-32.0); Troponin I 101 ng/L (<or=60)
[2022-09-15 18:10] LABS: Lactate 3.3 mmol/L (0.6-1.4)
--- NOTE | 2022-09-15 18:16 | ED.GENADUL_ITS ---
Discharge Plan Disposition Patient Disposition: Admit to [facility] Condition: Serious Discharge Details Clinical Impression: Pancreatic pseudocyst, Diabetic acidosis, type I Primary Care Provider: Janessa Cantrell ED Provider: Jaclyn Eli Home Meds and New Rx's Prescriptions: No Action aspirin 81 mg tablet,delayed release (DR/EC) 81 mg PO DAILY Qty: 90 3RF multivitamin [Daily Multi-Vitamin] 1 EACH tablet 1 ea PO DAILY (DME) FreeStyle Test Strip See Dose Instructions .ROUTE .MEDSUPPLY Qty: 360 3RF Dose Instruction: As directed Rx Instructions: qid metoprolol tartrate 25 mg tablet 25 mg PO Q12H Qty: 180 3RF (DME) BD AutoShield Duo Pen Needle 30 gauge x 3/16 needle See Dose Instructions .ROUTE .MEDSUPPLY Qty: 100 3RF Dose Instruction: As directed Rx Instructions: test once/day metronidazole 0.75 % cream 1 applic TP QHS Qty: 45 12RF Rx Instructions: Apply to face. insulin glargine [Basaglar KwikPen U-100 Insulin] 100 unit/mL (3 mL) insulin pen 20 unit SC QHS Qty: 15 5RF magnesium 200 mg tablet 400 mg PO DAILY ascorbic acid (vitamin C) 1,000 mg capsule 1 g PO DAILY biotin 1,000 mcg tablet,chewable 1,000 mcg PO DAILY Jardiance 25 mg tablet 25 mg PO QAM Qty: 90 1RF tadalafil 10 mg tablet 10 mg PO ONCE PRN (Reason: sexual activity) Qty: 10 2RF allopurinol 300 mg tablet 300 mg PO .MWF Qty: 36 3RF Medical Decision Making 56yo M DM, poor insulin compliance, recent admission for pancreatitis discharged 09/02/22, presenting for altered mental status. Patient oriented to person only, unable to provide much history though does deny pain. History from daughter at bedside, EMS, and [facility] record review. Blood glucose >500 for EMS, patient given 1L of IVF en route. Tachycardiac on arrival to 130's, tachypneic with 30's without clear odour of ketones. Dry mucous membranes on exam as well as mild epigastric tenderness, unable to fully participate in neurologic exam but no evident focal deficits. High suspicion for DKA however broad differential for acutely AMS and tachycardia/tachypnea. No fever and acute onset with no infectious symptoms yesterday lowers concern for sepsis, would not treat empirically at this time. Lower concern for acute intracranial process/stroke/bleed. No hypoxia to suggest PE. Given additional 1L IVFB on arrival. Head CT and CT CAP ordered and independently reviewed (IV versed to tolerate CT), no bleed or sequlea of CVA on head CT, likely pancreatic pseuduocyst on CAP; agree with radiology reads below. Labs resulted as below; CBC with leukocystosis to 21 (nonspecific), CMP consistent with DKA with elevated blood gluose, bicarb <5, elevated anion gap. Likely TULIO with Cr 1.8. TSH normal. Lipase normal, lower concern for acute pancreaitits. Troponin 101, likely T2 NSTEMI, will trend; EKG with sinus tachycardia, no ST segment or T wave abnormalities to suggest occluisve MT, does have prolonged QT which was treated empirically with 2g of IV magnesium over 2 hours. UA without infection, + ketones, UDS negative. Started on DKA protocol, repeat BMP with slight improvement, gap minimally smaller, bicarb remains <5. Accepted to [facility] ICU service and awaiting transfer to the unit. Medical Records Medical records reviewed: Yes I reviewed the patient's medical records. Medical records narrative: DC summary 09/02/22, admission for pancreaitits Imaging Data Radiologic Study: Imaging: CT Scan Radiologist's impression: IMPRESSION: Interval worsening of findings of acute pancreatitis and increase in size of 6.4 cm pancreatic pseudocyst.? Heterogeneous enhancement pattern of the pancreatic head now noted, and early pancreatic necrosis can not be excluded. Radiologic Study #2: Radiologist's impression: IMPRESSION: No acute intracranial abnormality. Lab Data Lab results reviewed: Yes I reviewed the patient's lab results. Labs: Laboratory Tests Range/Units 09/15/22 09/15/22 09/15/22 17:21 17:21 17:21 WBC (4.4-10.8) 10^3/uL 21.33 H RBC (4.36-5.78) 10^6/uL 4.17 L Hgb (13.5-17.5) g/dL 14.4 Hct (40.0-50.0) % 46.5 MCV (80-95) fL 112 H MCH (27.0-33.0) pg 34.5 H MCHC (32.0-36.0) % 31.0 L RDW (11.8-14.1) % 12.6 Plt Count (130-400) 10^3/uL 375 MPV (8.0-11.0) fL 10.7 Immature Gran % 0.0 Neutrophils % 60.0 Band Neutrophils % 7 Lymphocytes % 16.0 Monocytes % 16.0 Eosinophils % 0.0 Basophils % 0.0 Myelocytes % 1 Nucleated RBC % (0.0-0.3) % 0.0 Absolute Neutrophils (1.2-6.7) 10^3/uL 14.29 H Absolute Lymphocytes (1.2-3.4) 10^3/uL 3.41 H Absolute Monocytes (0.1-0.8) 10^3/uL 3.41 H Absolute Eosinophils (0.0-0.7) 10^3/uL 0.00 Absolute Basophils (0.0-0.2) 10^3/uL 0.00 RBC Morphology See Below Macrocytosis 2+ VBG Lactate (0.6-1.4) mmol/L Sodium (136-145) mmol/L 133 L Potassium (3.5-5.1) mmol/L 5.5 H Chloride (98-107) mmol/L 94 L Carbon Dioxide (21.0-32.0) mmol/L < 5.0 L* Anion Gap (3-11) mmol/L 34.22387 H BUN (7-18) mg/dL 19 H Creatinine (0.70-1.30) mg/dL 1.8 H Est GFR (CKD-EPI 2020) (mL/min/1.73m2) 43.90 Glucose (74-106) mg/dL 492 H Calcium (8.5-10.1) mg/dL 10.8 H Phosphorus (2.6-4.7) mg/dL Magnesium (1.8-2.4) mg/dL 2.1 Total Bilirubin (0.2-1.0) mg/dL 0.8 AST (15-37) U/L 70 H ALT (16-63) U/L 28 Alkaline Phosphatase (46-116) U/L 314 H Ammonia (11-32) umol/L 77 H Troponin I (<or=60) ng/L 101 H* Total Protein (6.4-8.2) g/dL 8.7 H Albumin (3.4-5.0) g/dL 3.2 L Lipase (16-77) U/L 32 TSH (0.36-3.74) uIU/mL 1.34 Urine Color (Yellow) Urine Clarity (Clear) Urine pH (5-8) Ur Specific [place] (1.005-1.025) Urine Protein (Negative) mg/dL Urine Ketones (Negative) mg/dL Urine Blood (Negative) Urine Nitrite (Negative) Urine Bilirubin (Negative) Urine Urobilinogen (Up to 0.2) mg/dL Ur Leukocyte Esterase (Negative) Urine RBC (0-2) HPF Urine WBC (0-5) HPF Ur Epithelial Cells (Negative) HPF Urine Crystals (Negative) HPF Urine Bacteria (Negative) HPF Urine Casts (Negative) LPF Urine Mucus (Negative) Ur Culture Indicated? Urine Glucose (Negative) mg/dL Urine Opiates Screen (Negative) Urine Methadone Screen (Negative) Ur Barbiturates Screen (Negative) Ur Tricyclics Screen (Negative) Ur Amphetamines Screen (Negative) U Benzodiazepines Scrn (Negative) Urine Cocaine Screen (Negative) Ur THC Screen (Negative) Ethyl Alcohol (<10) mg/dL < 3.0 Range/Units 09/15/22 09/15/22 09/15/22 17:34 17:34 18:00 WBC (4.4-10.8) 10^3/uL RBC (4.36-5.78) 10^6/uL Hgb (13.5-17.5) g/dL Hct (40.0-50.0) % MCV (80-95) fL MCH (27.0-33.0) pg MCHC (32.0-36.0) % RDW (11.8-14.1) % Plt Count (130-400) 10^3/uL MPV (8.0-11.0) fL Immature Gran % Neutrophils % Band Neutrophils % Lymphocytes % Monocytes % Eosinophils % Basophils % Myelocytes % Nucleated RBC % (0.0-0.3) % Absolute Neutrophils (1.2-6.7) 10^3/uL Absolute Lymphocytes (1.2-3.4) 10^3/uL Absolute Monocytes (0.1-0.8) 10^3/uL Absolute Eosinophils (0.0-0.7) 10^3/uL Absolute Basophils (0.0-0.2) 10^3/uL RBC Morphology Macrocytosis VBG Lactate (0.6-1.4) mmol/L 3.3 H* Sodium (136-145) mmol/L Potassium (3.5-5.1) mmol/L Chloride (98-107) mmol/L Carbon Dioxide (21.0-32.0) mmol/L Anion Gap (3-11) mmol/L BUN (7-18) mg/dL Creatinine (0.70-1.30) mg/dL Est GFR (CKD-EPI 2020) (mL/min/1.73m2) Glucose (74-106) mg/dL Calcium (8.5-10.1) mg/dL Phosphorus (2.6-4.7) mg/dL Magnesium (1.8-2.4) mg/dL Total Bilirubin (0.2-1.0) mg/dL AST (15-37) U/L ALT (16-63) U/L Alkaline Phosphatase (46-116) U/L Ammonia (11-32) umol/L Troponin I (<or=60) ng/L Total Protein (6.4-8.2) g/dL Albumin (3.4-5.0) g/dL Lipase (16-77) U/L TSH (0.36-3.74) uIU/mL Urine Color (Yellow) Yellow Urine Clarity (Clear) Clear Urine pH (5-8) 5.0 Ur Specific [place] (1.005-1.025) 1.020 Urine Protein (Negative) mg/dL 100 H Urine Ketones (Negative) mg/dL >=160 H Urine Blood (Negative) Small H Urine Nitrite (Negative) Negative Urine Bilirubin (Negative) Small H Urine Urobilinogen (Up to 0.2) mg/dL 0.2 Ur Leukocyte Esterase (Negative) Negative Urine RBC (0-2) HPF 0-2 Urine WBC (0-5) HPF 0-2 Ur Epithelial Cells (Negative) HPF Rare Urine Crystals (Negative) HPF Negative Urine Bacteria (Negative) HPF Few Urine Casts (Negative) LPF 0-2 Fine Granular Urine Mucus (Negative) Trace Ur Culture Indicated? No Urine Glucose (Negative) mg/dL 500 H Urine Opiates Screen (Negative) Negative Urine Methadone Screen (Negative) Negative Ur Barbiturates Screen (Negative) Negative Ur Tricyclics Screen (Negative) Negative Ur Amphetamines Screen (Negative) Negative U Benzodiazepines Scrn (Negative) Negative Urine Cocaine Screen (Negative) Negative Ur THC Screen (Negative) Negative Ethyl Alcohol (<10) mg/dL Range/Units 09/15/22 09/15/22 18:00 18:00 WBC (4.4-10.8) 10^3/uL RBC (4.36-5.78) 10^6/uL Hgb (13.5-17.5) g/dL Hct (40.0-50.0) % MCV (80-95) fL MCH (27.0-33.0) pg MCHC (32.0-36.0) % RDW (11.8-14.1) % Plt Count (130-400) 10^3/uL MPV (8.0-11.0) fL Immature Gran % Neutrophils % Band Neutrophils % Lymphocytes % Monocytes % Eosinophils % Basophils % Myelocytes % Nucleated RBC % (0.0-0.3) % Absolute Neutrophils (1.2-6.7) 10^3/uL Absolute Lymphocytes (1.2-3.4) 10^3/uL Absolute Monocytes (0.1-0.8) 10^3/uL Absolute Eosinophils (0.0-0.7) 10^3/uL Absolute Basophils (0.0-0.2) 10^3/uL RBC Morphology Macrocytosis VBG Lactate (0.6-1.4) mmol/L Sodium (136-145) mmol/L 137 Potassium (3.5-5.1) mmol/L 4.2 D Chloride (98-107) mmol/L 101 Carbon Dioxide (21.0-32.0) mmol/L < 5.0 L* Anion Gap (3-11) mmol/L 31.69181 H BUN (7-18) mg/dL 16 Creatinine (0.70-1.30) mg/dL 1.5 H Est GFR (CKD-EPI 2020) (mL/min/1.73m2) 54.64 Glucose (74-106) mg/dL 418 H Calcium (8.5-10.1) mg/dL 8.6 Phosphorus (2.6-4.7) mg/dL 7.1 H Magnesium (1.8-2.4) mg/dL Total Bilirubin (0.2-1.0) mg/dL AST (15-37) U/L ALT (16-63) U/L Alkaline Phosphatase (46-116) U/L Ammonia (11-32) umol/L Troponin I (<or=60) ng/L Total Protein (6.4-8.2) g/dL Albumin (3.4-5.0) g/dL Lipase (16-77) U/L TSH (0.36-3.74) uIU/mL Urine Color (Yellow) Urine Clarity (Clear) Urine pH (5-8) Ur Specific [place] (1.005-1.025) Urine Protein (Negative) mg/dL Urine Ketones (Negative) mg/dL Urine Blood (Negative) Urine Nitrite (Negative) Urine Bilirubin (Negative) Urine Urobilinogen (Up to 0.2) mg/dL Ur Leukocyte Esterase (Negative) Urine RBC (0-2) HPF Urine WBC (0-5) HPF Ur Epithelial Cells (Negative) HPF Urine Crystals (Negative) HPF Urine Bacteria (Negative) HPF Urine Casts (Negative) LPF Urine Mucus (Negative) Ur Culture Indicated? Urine Glucose (Negative) mg/dL Urine Opiates Screen (Negative) Urine Methadone Screen (Negative) Ur Barbiturates Screen (Negative) Ur Tricyclics Screen (Negative) Ur Amphetamines Screen (Negative) U Benzodiazepines Scrn (Negative) Urine Cocaine Screen (Negative) Ur THC Screen (Negative) Ethyl Alcohol (<10) mg/dL HPI General Mode of arrival: EMS . Date/Time Provider Initiated Documentation: 09/15/22 17:06 . Limitations to Documentation: altered mental status . Information obtained by: patient, family and old records reviewed . HPI Narrative: 56yo M DM, poor insulin compliance, recent admission for pancreatitis discharged 09/02/22, presenting for altered mental status. Daughter at bedside reports patient was normal yesterday and in his usual state of health; arrived at house this afternoon and he was not acting right, confused, not making sense. No infectious symptoms yesterday that she is aware of. Patient denies pain, other mendez not able to participate in history. Related Data Home Medications Medication Instructions Recorded Confirmed multivitamin (Daily Multi-Vitamin 1 ea PO DAILY 10/29/16 09/15/22 tablet) aspirin 81 mg tablet,delayed 81 mg PO DAILY #90 tabs 11/14/20 09/15/22 release blood sugar diagnostic (FreeStyle #360 ea 08/01/21 09/15/22 Test strips) metoprolol tartrate 25 mg tablet 25 mg PO Q12H #180 tabs 12/04/21 09/15/22 pen needle,diabetic dual safty 30 #100 ea 12/04/21 09/15/22 gauge x 3/16 (BD AutoShield Duo Pen Needle) metronidazole 0.75 % topical cream 1 applic topical QHS #45 grams 01/09/22 09/15/22 ascorbic acid (vitamin C) 1,000 mg 1 g PO DAILY 05/21/22 09/15/22 capsule biotin 1,000 mcg chewable tablet 1,000 mcg PO DAILY 05/21/22 09/15/22 insulin glargine 100 unit/mL (3 20 unit (0.2 mL) subcut QHS #15 mL 05/21/22 09/15/22 mL) subcutaneous pen (Basaglar KwikPen U-100 Insulin) magnesium 200 mg tablet 400 mg PO DAILY 05/21/22 09/15/22 allopurinol 300 mg tablet 300 mg PO .MWF #36 tabs 09/04/22 09/15/22 empagliflozin 25 mg tablet 25 mg PO QAM #90 tabs 09/04/22 09/15/22 (Jardiance) tadalafil 10 mg tablet 10 mg PO ONCE PRN sexual activity 09/04/22 09/15/22 #10 tabs Previous Rx's Medication Instructions Recorded aspirin 81 mg tablet,delayed 81 mg PO DAILY #90 tabs 11/14/20 release blood sugar diagnostic (FreeStyle #360 ea 08/01/21 Test strips) metoprolol tartrate 25 mg tablet 25 mg PO Q12H #180 tabs 12/04/21 pen needle,diabetic dual safty 30 #100 ea 12/04/21 gauge x 3/16 (BD AutoShield Duo Pen Needle) metronidazole 0.75 % topical cream 1 applic topical QHS #45 grams 01/09/22 insulin glargine 100 unit/mL (3 20 unit (0.2 mL) subcut QHS #15 mL 05/21/22 mL) subcutaneous pen (Basaglar KwikPen U-100 Insulin) allopurinol 300 mg tablet 300 mg PO .MWF #36 tabs 09/04/22 empagliflozin 25 mg tablet 25 mg PO QAM #90 tabs 09/04/22 (Jardiance) tadalafil 10 mg tablet 10 mg PO ONCE PRN sexual activity 09/04/22 #10 tabs Allergies Allergy/AdvReac Type Severity Reaction Status Date / Time morphine AdvReac Intermediate Narcotic Verified 08/29/22 16:44 induced constipation General Stated Complaint: AMS/LOC DELMY: 2 Review of Systems Unobtainable due to mental status PFSH All Active Problems (Updated 09/15/22 @ 21:16 by Jaclyn Eli MD) Diabetic acidosis, type I (Acute) Constipation (Acute) Pancreatitis (Acute) Diabetes (Acute) Hypertension (Acute) Pancreatic pseudocyst (Chronic) Alcohol intake above recommended sensible limits (Chronic) Essential hypertension (Chronic 01/10/13) Hyperlipidemia (Chronic 07/15/12) Male erectile disorder (Chronic) normal testosterone Rosacea (Chronic) Tobacco dependence due to chewing tobacco (Chronic) Onychomycosis (Chronic) on fingers and toes; declines to treat due to possible medication side effects. Anxiety disorder (Chronic) Hypomagnesemia (Acute) Hypokalemia (Acute) Thrombocytopenia (Acute) Uncontrolled type 2 diabetes mellitus with hyperglycemia, with long-term current use of insulin (Chronic) Medical History (Updated 09/15/22 @ 21:16 by Jaclyn Eli MD) Acute pancreatitis (12/19/13) 12/20/13,11/04/17, 04/2022 Atrial fibrillation Stable. History during hospitalization in 2018, negative Zio patch for 48 hrs. Cerebellar lesion ruled out with MRI Depression a. inpatient admission Surgical History H/O arthroscopy of right knee Family History Grandfather , [place] at age 54. Myocardial infarction Father Prostate cancer Grandfather Personal history of malignant neoplasm Social History (Updated 05/30/22 @ 12:38 by Rebeca Perry) Smoking/Tobacco Use Status: Former Tobacco Use Smokeless tobacco user: chewing tobacco Counseling given: provider counseling Smoking risk assessment performed?: Yes Alcohol Intake: current Alcohol Intake frequency: 3 or more drinks per day Drug use: Never Substance use type: does not use Details: no alcohol for 12+ days due to pancreatitis Household members: none Housing: house Number of Children: 3 Education Level: high school current occupation: Currently unemployed Pets and animals: Yes Pets and animals: dog(s) Sexually active: No What is your relationship status?: How often do you get together with friends or relatives?: once per week Panel score (0-1 are the most socially isolated patients): 0 What type of physical activity do you participate in: walking Do you feel safe at home: Yes Do you feel safe in your relationship?: Yes Exam Narrative Exam Narrative: General: Alert, mild distress Head: Normocephalic, atraumatic Neck: Trachea midline, Neck supple. ENT: Dry mucous membranes. Cardiac: Tachycardiac, regular, no murmurs appreciated Resp: Tachypenic. CTAB. Abd: Soft, non-distended, mildly tender to palpation of epigastrium : No suprapubic tenderness. Extremities: No deformities. No peripheral edema. Neuro: GCS 14, orient to person only.. PERRL. Moves all extremities freely against gravity. Course Vital Signs Vital signs: Vital Signs Temperature 37.1 C 09/15/22 16:47 Pulse 130 H 09/15/22 16:47 Respiratory Rate 26 H 09/15/22 16:47 Blood Pressure 152/82 H 09/15/22 16:47 Temperature 37.1 C 09/15/22 16:47 Temperature Source Tympanic 09/15/22 16:47 Pulse 130 H 09/15/22 16:47 Respiratory Rate 26 H 09/15/22 16:47 Respiratory Effort Short of Breath 09/15/22 17:04 Blood Pressure 152/82 H 09/15/22 16:47 Blood Pressure Position Sitting 09/15/22 16:47 Lab/Test Results Lab/Test Results: Laboratory Tests Range/Units 09/15/22 09/15/22 09/15/22 17:21 17:21 17:21 WBC (4.4-10.8) 10^3/uL 21.33 H RBC (4.36-5.78) 10^6/uL 4.17 L Hgb (13.5-17.5) g/dL 14.4 Hct (40.0-50.0) % 46.5 MCV (80-95) fL 112 H MCH (27.0-33.0) pg 34.5 H MCHC (32.0-36.0) % 31.0 L RDW (11.8-14.1) % 12.6 Plt Count (130-400) 10^3/uL 375 MPV (8.0-11.0) fL 10.7 Immature Gran % 0.0 Neutrophils % 60.0 Band Neutrophils % 7 Lymphocytes % 16.0 Monocytes % 16.0 Eosinophils % 0.0 Basophils % 0.0 Myelocytes % 1 Nucleated RBC % (0.0-0.3) % 0.0 Absolute Neutrophils (1.2-6.7) 10^3/uL 14.29 H Absolute Lymphocytes (1.2-3.4) 10^3/uL 3.41 H Absolute Monocytes (0.1-0.8) 10^3/uL 3.41 H Absolute Eosinophils (0.0-0.7) 10^3/uL 0.00 Absolute Basophils (0.0-0.2) 10^3/uL 0.00 RBC Morphology See Below Macrocytosis 2+ VBG Lactate (0.6-1.4) mmol/L Sodium (136-145) mmol/L 133 L Potassium (3.5-5.1) mmol/L 5.5 H Chloride (98-107) mmol/L 94 L Carbon Dioxide (21.0-32.0) mmol/L < 5.0 L* Anion Gap (3-11) mmol/L 34.93926 H BUN (7-18) mg/dL 19 H Creatinine (0.70-1.30) mg/dL 1.8 H Est GFR (CKD-EPI 2020) (mL/min/1.73m2) 43.90 Glucose (74-106) mg/dL 492 H Calcium (8.5-10.1) mg/dL 10.8 H Magnesium (1.8-2.4) mg/dL 2.1 Total Bilirubin (0.2-1.0) mg/dL 0.8 AST (15-37) U/L 70 H ALT (16-63) U/L 28 Alkaline Phosphatase (46-116) U/L 314 H Ammonia (11-32) umol/L 77 H Troponin I (<or=60) ng/L 101 H* Total Protein (6.4-8.2) g/dL 8.7 H Albumin (3.4-5.0) g/dL 3.2 L Lipase (16-77) U/L 32 TSH (0.36-3.74) uIU/mL 1.34 Urine Color (Yellow) Urine Clarity (Clear) Urine pH (5-8) Ur Specific [place] (1.005-1.025) Urine Protein (Negative) mg/dL Urine Ketones (Negative) mg/dL Urine Blood (Negative) Urine Nitrite (Negative) Urine Bilirubin (Negative) Urine Urobilinogen (Up to 0.2) mg/dL Ur Leukocyte Esterase (Negative) Urine RBC (0-2) HPF Urine WBC (0-5) HPF Ur Epithelial Cells (Negative) HPF Urine Crystals (Negative) HPF Urine Bacteria (Negative) HPF Urine Casts (Negative) LPF Urine Mucus (Negative) Ur Culture Indicated? Urine Glucose (Negative) mg/dL Urine Opiates Screen (Negative) Urine Methadone Screen (Negative) Ur Barbiturates Screen (Negative) Ur Tricyclics Screen (Negative) Ur Amphetamines Screen (Negative) U Benzodiazepines Scrn (Negative) Urine Cocaine Screen (Negative) Ur THC Screen (Negative) Ethyl Alcohol (<10) mg/dL < 3.0 Range/Units 09/15/22 09/15/22 09/15/22 17:34 17:34 18:00 WBC (4.4-10.8) 10^3/uL RBC (4.36-5.78) 10^6/uL Hgb (13.5-17.5) g/dL Hct (40.0-50.0) % MCV (80-95) fL MCH (27.0-33.0) pg MCHC (32.0-36.0) % RDW (11.8-14.1) % Plt Count (130-400) 10^3/uL MPV (8.0-11.0) fL Immature Gran % Neutrophils % Band Neutrophils % Lymphocytes % Monocytes % Eosinophils % Basophils % Myelocytes % Nucleated RBC % (0.0-0.3) % Absolute Neutrophils (1.2-6.7) 10^3/uL Absolute Lymphocytes (1.2-3.4) 10^3/uL Absolute Monocytes (0.1-0.8) 10^3/uL Absolute Eosinophils (0.0-0.7) 10^3/uL Absolute Basophils (0.0-0.2) 10^3/uL RBC Morphology Macrocytosis VBG Lactate (0.6-1.4) mmol/L 3.3 H* Sodium (136-145) mmol/L Potassium (3.5-5.1) mmol/L Chloride (98-107) mmol/L Carbon Dioxide (21.0-32.0) mmol/L Anion Gap (3-11) mmol/L BUN (7-18) mg/dL Creatinine (0.70-1.30) mg/dL Est GFR (CKD-EPI 2020) (mL/min/1.73m2) Glucose (74-106) mg/dL Calcium (8.5-10.1) mg/dL Magnesium (1.8-2.4) mg/dL Total Bilirubin (0.2-1.0) mg/dL AST (15-37) U/L ALT (16-63) U/L Alkaline Phosphatase (46-116) U/L Ammonia (11-32) umol/L Troponin I (<or=60) ng/L Total Protein (6.4-8.2) g/dL Albumin (3.4-5.0) g/dL Lipase (16-77) U/L TSH (0.36-3.74) uIU/mL Urine Color (Yellow) Yellow Urine Clarity (Clear) Clear Urine pH (5-8) 5.0 Ur Specific [place] (1.005-1.025) 1.020 Urine Protein (Negative) mg/dL 100 H Urine Ketones (Negative) mg/dL >=160 H Urine Blood (Negative) Small H Urine Nitrite (Negative) Negative Urine Bilirubin (Negative) Small H Urine Urobilinogen (Up to 0.2) mg/dL 0.2 Ur Leukocyte Esterase (Negative) Negative Urine RBC (0-2) HPF 0-2 Urine WBC (0-5) HPF 0-2 Ur Epithelial Cells (Negative) HPF Rare Urine Crystals (Negative) HPF Negative Urine Bacteria (Negative) HPF Few Urine Casts (Negative) LPF 0-2 Fine Granular Urine Mucus (Negative) Trace Ur Culture Indicated? No Urine Glucose (Negative) mg/dL 500 H Urine Opiates Screen (Negative) Negative Urine Methadone Screen (Negative) Negative Ur Barbiturates Screen (Negative) Negative Ur Tricyclics Screen (Negative) Negative Ur Amphetamines Screen (Negative) Negative U Benzodiazepines Scrn (Negative) Negative Urine Cocaine Screen (Negative) Negative Ur THC Screen (Negative) Negative Ethyl Alcohol (<10) mg/dL Critical Care Time Critical Care Time Critical Care Time: Yes Total Critical Care Time: 34 Attestation: Due to a high probability of clinically significant, life threatening deterioration, the patient required my highest level of preparedness to intervene emergently and I personally spent this critical care time directly and personally managing the patient. This critical care time included obtaining a history; examining the patient; pulse oximetry; ordering and review of studies; arranging urgent treatment with development of a management plan; evaluation of patient's response to treatment; frequent reassessment; and, discussions with other providers. This critical care time was performed to assess and manage the high probability of imminent, life-threatening deterioration that could result in multi-organ failure. It was exclusive of separately billable procedures.
[2022-09-15] MEDS: Normal Saline - Diluent 50 ML VIAL IJ (18:18)
[2022-09-15] MEDS: Omnipaque 350 MG/ML 100 ML BTL IJ (18:19)
[2022-09-15] MEDS: Normal Saline Flush 10 ML SYR IVP (18:19)
[2022-09-15 18:32] LABS: PHOSPHORUS 7.1 mg/dL (2.6-4.7)
[2022-09-15] MEDS: Midazolam 2 MG/2 ML VIAL 2.5 MG IVP (18:40)
[2022-09-15 18:59] LABS: BUN 16 mg/dL (7-18); CREATININE 1.5 mg/dL (0.70-1.30); Calcium 8.6 mg/dL (8.5-10.1); Chloride 101 mmol/L (98-107); Estimated GFR 54.64 (mL/min/1.73m2); Glucose 418 mg/dL (74-106); Sodium 137 mmol/L (136-145)
[2022-09-15] MEDS: INSULIN REGULAR IN 0.9 % NACL 100 UNIT/100 ML BAG IV (19:05)
[2022-09-15 19:07] LABS: Anion Gap 31.00001 mmol/L (3-11); Potassium 4.2 mmol/L (3.5-5.1)
[2022-09-15 19:08] LABS: CO2 < 5.0 mmol/L (21.0-32.0)
--- NOTE | 2022-09-15 19:10 | DI.VRAD_ITS ---
PROCEDURE INFORMATION: Exam: CT Chest With Contrast; Diagnostic Exam date and time: 09/15/2022 6:31 PM Age: 56 years old Clinical indication: Other: Tachypnea, epigastric ttp, AMS unable provide HX TECHNIQUE: Imaging protocol: Diagnostic computed tomography of the chest with contrast. 3D rendering (Not supervised by radiologist): MIP and/or 3D reconstructed images were created by the technologist. Radiation optimization: All CT scans at this facility use at least one of these dose optimization techniques: automated exposure control; mA and/or kV adjustment per patient size (includes targeted exams where dose is matched to clinical indication); or iterative reconstruction. Contrast material: OMNI 350; Contrast volume: 100 ml; Contrast route: INTRAVENOUS (IV); COMPARISON: CT ABDOMEN PELVIS W 08/29/2022 2:59 PM FINDINGS: Lungs: Unremarkable. No consolidation. No masses. Pleural spaces: Unremarkable. No pneumothorax. No pleural effusion. Heart: Unremarkable. No cardiomegaly. No pericardial effusion. Mediastinal space: Concentric wall thickening of the distal esophagus. Mild fluid distention of the proximal esophagus likely due to gastroesophageal reflux. Lymph nodes: Unremarkable. No enlarged lymph nodes. Vasculature: Unremarkable. No aortic aneurysm. Bones/joints: Moderate degenerative disc changes in the lower thoracic spine. No acute fracture. Soft tissues: Unremarkable. Other findings: Study is limited by patient motion. IMPRESSION: Interval development of wall thickening of the distal esophagus concerning for esophagitis. Otherwise stable chronic findings as noted. PROCEDURE INFORMATION: Exam: CT Abdomen And Pelvis With Contrast Exam date and time: 09/15/2022 6:31 PM Age: 56 years old Clinical indication: Other: Tachypnea, epigastric ttp, AMS unable provide HX TECHNIQUE: Imaging protocol: Computed tomography of the abdomen and pelvis with contrast. 3D rendering (Not supervised by radiologist): MIP and/or 3D reconstructed images were created by the technologist. Radiation optimization: All CT scans at this facility use at least one of these dose optimization techniques: automated exposure control; mA and/or kV adjustment per patient size (includes targeted exams where dose is matched to clinical indication); or iterative reconstruction. Contrast material: OMNI 350; Contrast volume: 100 ml; Contrast route: INTRAVENOUS (IV); COMPARISON: CT ABDOMEN PELVIS W 08/29/2022 2:59 PM FINDINGS: Liver: Normal. No mass. Gallbladder and bile ducts: Normal. No calcified stones. No ductal dilation. Pancreas: 6.4 cm loculated fluid collection largely invested within the body of the pancreas, compatible with a pseudocyst. This is increased in size since the prior study. Heterogeneous density and enhancement of the pancreatic head now noted. Enlarged pancreatic head surrounding peripancreatic fatty stranding which appears worsened since the prior study. Spleen: Normal. No splenomegaly. Adrenal glands: Normal. No mass. Kidneys and ureters: Normal. No hydronephrosis. Stomach and bowel: Mild diverticulosis throughout the distal colon. No bowel wall thickening or evidence of bowel obstruction. Appendix: No evidence of appendicitis. Intraperitoneal space: Unremarkable. No free air. No significant fluid collection. Vasculature: Unremarkable. No abdominal aortic aneurysm. Lymph nodes: Unremarkable. No enlarged lymph nodes. Urinary bladder: Unremarkable as visualized. Reproductive: Unremarkable as visualized. Bones/joints: Moderate degenerative disc changes throughout the lumbar spine. No vertebral body compression or acute fracture. Soft tissues: Unremarkable. IMPRESSION: Interval worsening of findings of acute pancreatitis and increase in size of 6.4 cm pancreatic pseudocyst. Heterogeneous enhancement pattern of the pancreatic head now noted, and early pancreatic necrosis can not be excluded. Dictated and Authenticated by: Rodolfo Spicer MD. Ordering:OMARI Anaya MD
[2022-09-15] MEDS: MAGNESIUM SULFATE 2 GM/50 ML BAG IVPB (19:15)
[2022-09-15] MEDS: DEXTROSE 5%-0.45% SALINE 1,000 ML 150 ML IV (19:20)
--- NOTE | 2022-09-15 19:23 | DI.VRAD_ITS ---
PROCEDURE INFORMATION: Exam: CT Head Without Contrast Exam date and time: 09/15/2022 6:22 PM Age: 56 years old Clinical indication: Other: AMS TECHNIQUE: Imaging protocol: Computed tomography of the head without contrast. Radiation optimization: All CT scans at this facility use at least one of these dose optimization techniques: automated exposure control; mA and/or kV adjustment per patient size (includes targeted exams where dose is matched to clinical indication); or iterative reconstruction. COMPARISON: CT HEAD WO 08/29/2022 2:54 PM FINDINGS: Brain: Mild volume loss No hemorrhage. Unremarkable white matter. No mass effect. Cerebral ventricles: No ventriculomegaly. Paranasal sinuses: Visualized sinuses are unremarkable. No fluid levels. Mastoid air cells: Visualized mastoid air cells are well aerated. Bones/joints: Unremarkable. No acute fracture. Soft tissues: Unremarkable. IMPRESSION: No acute intracranial abnormality. Dictated and Authenticated by: Gene Menendez MD. Ordering:OMARI Anaya MD
[2022-09-15 21:13] LABS: Anion Gap 33.1 mmol/L (3-11); BUN 18 mg/dL (7-18); CO2 6.9 mmol/L (21.0-32.0); CREATININE 1.7 mg/dL (0.70-1.30); Calcium 9.9 mg/dL (8.5-10.1); Chloride 96 mmol/L (98-107); Estimated GFR 47.02 (mL/min/1.73m2); Glucose 460 mg/dL (74-106); Sodium 136 mmol/L (136-145)
[2022-09-15 21:14] LABS: Troponin I 281 ng/L (<or=60)
--- NOTE | 2022-09-15 21:45 | RT.EKG_ITS ---
APPROVED REPORT Exam: Resting ECG Reason for Exam: elevated troponin Patient Location: I HR:119 bpm ECG Measurements Heart Rate 119 AXIS CA [id number] P [id number] QRSd 99 QRS 30 QT 385 T 55 QTc 542 Conclusion Junctional tachycardia...absent P waves, rapid V-rate Prolonged QT interval...QTc >500mS
--- NOTE | 2022-09-15 21:51 | HPE_ITS ---
Date of service: 09/15/22 Time of Service: 21:52 Assessment and Plan Assessment and plan (1) Diabetic acidosis, type I: Status: Acute Assessment and plan: iv fluids, iv insulin, hourly glucose, q2h BMP and serial lactate and VBG; give HCO3 until pH >=7.1, obtain blood and urine cultures, will check procalcitonin, and cover w/meropenem pending results of cultures. Likely DKA is d/t his noncompliance w/ his diabetic regimen but given the severity of his acidosis, lactate levels, and leukocytosis can not exclude sepsis. If blood and urine cultures are negative then will dc antibiotics tomorrow. Patient needs diabetic education, and close outpatient follow up of his DM. (2) High anion gap metabolic acidosis: Status: Acute Assessment and plan: secondary to DKA, and lactic acidosis. the degree of acidosis is severe enough to warrant bicarbonate boluses to bring his pH above 7.1, insulin and fluid will not be enough to correct his acidosis quickly enough (3) Lactic acidosis: Status: Resolved Assessment and plan: as above (4) Atrial fibrillation: Assessment and plan: patient presented in sinus tachycardia however he went into a rate into the 140's afer admisson to ICU and it appeared to be irregular. He was given diltiazem 10 mg IVP which brought his HR down to 105 bmp and it appears to be more regular w/ small p waves. I have put him on iv lopressor as he is not able to take his oral lopressor. Qualifiers: Atrial fibrillation type: paroxysmal Qualified Code(s): I48.0 - P aroxysmal atrial fibrillation (5) Neutrophilic leukocytosis: Status: Acute Assessment and plan: Likely reactive to his DKA but in setting of severe acidosis can not exclude sepsis, suspect source his enlarging pseudocyst but cultures including urine and blood were obtained. empiric meropenem added to target infected necrotizing pancreatitis (6) TULIO (acute kidney injury): Status: Acute Assessment and plan: Likely secondary to prerenal azotemia from dehydration, DKA, however, he may develope concommittant ATN from iv contrast given for his CT scans; continue hydration but will need to watch for volume overload as he already has B lines in both lung bases. IVC is not dilated but has collapsability of < 50% and therefore RAP estm 8 cm. patient has krause so we can closely monitor his urine ouput. meds adjusted for his renal fxn (7) Elevated troponin I level: Status: Acute Assessment and plan: acute troponin rise w/out ischemic EKG changes or RWMA on POCUS; will treat w/ ASA, but no systemic heparinization particularly in setting of worsening pancreatitis w/ increasing pseudocyst and probable pancreatic necrosis, higher risk for conversion to hemorrhagic pancreatitis. Will monitor troponin and get formal echo tomorrow. Reassuring the delta troponin only maicol to 314. will get formal echocardiogram in the a.m. (8) Uncontrolled type 2 diabetes mellitus with hyperglycemia, with long-term current use of insulin: Status: Chronic Assessment and plan: as above (9) Pancreatic pseudocyst: Status: Chronic Assessment and plan: worsening CT picture although his lipase surprisingly is normal at 32. This level does not represent his pancreas as being burned out as he did mount an acute pancreatitis response recently w/ lipase of >375 as of 08/29, however it is worsisome that his pseudocyst is larger at 6.4 cm and may represent an infected cyst , I have decided to use meropenem as choice of antibiotics until we rule out sepsis. He probably will need IR drainage of the cyst. I have requested that his CT images from [facility] and from 08/29 be [place] [facility] [place] so day shift can discuss w/ IR about drainage/culture. (10) Chronic pancreatitis due to acute alcohol intoxication: Status: Acute (11) Hypertension: Status: Acute Assessment and plan: on admission his home antihypertensive were ordered but in light of his mental status change all po meds were held. I had put him on his lopressor parenteral but in light of his hypotension and need for vasopressor, they have been held. (12) GERD without esophagitis: Status: Acute Assessment and plan: patient was not on any PPI or H2B at home but his CT chest suggested thickening of his distal esophagus w/ some fluid c/w GERD and esophagitis. I have put him on iv protonix (13) DVT prophylaxis: Status: Acute Assessment and plan: enoxaparin SC History of Present Illness History of Present Illness Chief Complaint: delirium, DKA Narrative: 56-year-old male with history of alcoholism, type 2 diabetes mellitus requiring insulin, chronic pancreatitis with pseudocyst, essential hypertension, paro xysmal atrial fibrillation not on anticoagulation who has had a couple admissions to [facility] this year for recurrent pancreatitis and alcohol withdrawal with his most recent hospitalization from 08/29/2022 through 09/02/2022. He is now sent into the emergency department this afternoon with acute mental status change very confused nauseated weak and with emesis. Patient is a heavy consumer of alcohol but allegedly has not had any alcohol for last 12 days. He was brought in by EMS and per their evaluation he was hyperglycemic with a blood sugar of 447 mg/dL and he was given 1100 mL of IV fluids. Further evaluation by ED personnel included CT scan of his chest and abdomen as well as labs and EKG. Labs are pertinent for leukocytosis 21,300 with a leftward shift with a macrocytic changes but no anemia and no thrombocytopenia. CMP was remarkable for an anion gap acidosis with anion gap of 34 bicarbonate less than 5 along with acute kidney injury with a BUN of 19 creatinine 1.8 and a glucose of 192 and elevated ammonia level 77 and a troponin of 101 with serial troponins going up to 281 and 314. Lipase was normal at 32 and TSH normal at 1.34. Potassium was 5.5. Despite IV fluids and initiation of insulin he continued to demonstrate an anion gap acidosis ABG and VBG's were not done on admission but subsequent VBG demonstrated pH 6.83 and a PCO2 of 26 with a bicarbonate level for. His initial blood lactate was 3.3 and after IV fluids is only come down to 2.3. Urine was remarkable for ketones greater than 160 and urine glucose of 500 mg/dL. He has 0-2 fine granular urine casts but negative for crystals rare epithelial cells and only 0-2 red cells and 0-2 white cells per high-power field. With 100 mg/dL protein. Pro time is 11.5 with INR 1.1. No blood or urine cultures were obtained but imaging was obtained including CT scan of his chest abdomen pelvis. As well as a head CT scan. Noncontrast CT scan of his head showed no acute intracranial abnormalities. CT of the chest and abdomen showed no lung consolidation or masses no pleural effusion no cardiomegaly no pericardial effusion. However he was noted to have concentric wall thickening of the distal esophagus with mild fluid distention of the proximal esophagus likely related to reflux. No adenopathy was noted in the chest. He has moderate DJD of his thoracic spine. CT of the abdomen showed normal-sized liver with no masses. No gallstones no ductal dilatation however he has a worsening pancreatic phlegmon with a 6.4 cm lobulated fluid collection in the body of the pancreas that is increased in size since his previous study performed on 08/29/2022. He has heterogeneous density and enhancement of the pancreatic head along with peripancreatic fatty stranding. Adrenals and spleen kidneys appear to be normal. He has diverticulosis but no diverticulitis. No retroperitoneal adenopathy. Urinary bladder was unremarkable. Patient was treated the emergency department with IV fluid boluses started on continuous drip of D5 half-normal saline 20 mEq/L at 250 mL an hour and was started on insulin drip at 2 units an hour. Since that time he has been admitted to the intensive care unit with check VBG's have given him bicarbonate boluses to correct his severe acidosis. Blood cultures and urine cultures been sent off the patient has been started on empiric antibiotic treatment for possible infected pancreatic phlegmon. Insulin drip has been titrated and serial BMPs and VBG's and lactate levels as well as serial troponins are being monitored. Of note his admission troponin was elevated at 101 ng/L and is risen to 281 and subsequently to 314. Repeat EKG was done after admission to the in tensive care unit shows sinus tachycardia no acute ST or T wave changes. [id number] echocardiogram was done at the bedside and he was found to have no LV or RV dysfunction. Patient remains in critical condition which is necessitated my continuous attendance to this patient for the past 3 hours. Review of Systems Unobtainable due to mental status [facility] All Active Problems (Updated 09/16/22 @ 12:52 by Yady Sargent MD) Toxic metabolic encephalopathy (Acute) Septic shock (Acute) Alcohol use disorder (Acute) Hypovolemic shock (Acute) DKA (diabetic ketoacidosis) (Acute) Normal anion gap metabolic acidosis (Acute) DVT prophylaxis (Acute) GERD without esophagitis (Acute) Neutrophilic leukocytosis (Acute) Elevated troponin I level (Acute) TULIO (acute kidney injury) (Acute) Chronic pancreatitis due to acute alcohol intoxication (Acute) High anion gap metabolic acidosis (Acute) Diabetic acidosis, type I (Acute) Constipation (Acute) Pancreatitis (Acute) Diabetes (Acute) Hypertension (Acute) Pancreatic pseudocyst (Chronic) Alcohol intake above recommended sensible limits (Chronic) Essential hypertension (Chronic 01/10/13) Hyperlipidemia (Chronic 07/15/12) Male erectile disorder (Chronic) normal testosterone Rosacea (Chronic) Tobacco dependence due to chewing tobacco (Chronic) Onychomycosis (Chronic) on fingers and toes; declines to treat due to possible medication side eff ects. Anxiety disorder (Chronic) Hypomagnesemia (Acute) Hypokalemia (Acute) Thrombocytopenia (Acute) Uncontrolled type 2 diabetes mellitus with hyperglycemia, with long-term current use of insulin (Chronic) Medical History (Updated 09/16/22 @ 12:52 by Yady Sargent MD) Acute pancreatitis (12/19/13) 12/20/13,11/04/17, 04/2022 Atrial fibrillation Stable. History during hospitalization in 2018, negative Zio patch for 48 hrs. Cerebellar lesion ruled out with MRI Depression a. inpatient admission Surgical History H/O arthroscopy of right knee Family History Grandfather , [place] at age 54. Myocardial infarction Father Prostate cancer Grandfather Personal history of malignant neoplasm Social History (Updated 05/30/22 @ 12:38 by Rebeca Perry) Smoking/Tobacco Use Status: Former Tobacco Use Smokeless tobacco user: chewing tobacco Counseling given: provider counseling Smoking risk assessment performed?: Yes Alcohol Intake: current Alcohol Intake frequency: 3 or more drinks per day Drug use: Never Substance use type: does not use Details: no alcohol for 12+ days due to pancreatitis Household members: none Housing: other Number of Children: 3 Education Level: high school current occupation: Currently unemployed Pets and animals: Yes Pets and animals: dog(s) Sexually active: No What is your relationship status?: How often do you get together with friends or relatives?: once per week Panel score (0-1 are the most socially isolated patients): 0 What type of physical activity do you participate in: walking Do you feel safe at home: Yes Do you feel safe in your relationship?: Yes Meds Allergies and Home Medications Allergies Allergy/AdvReac Type Severity Reaction Status Date / Time morphine AdvReac Intermediate Narcotic Verified 08/29/22 16:44 induced constipation Home Medications Medication Instructions Recorded Confirmed Type multivitamin (Daily Multi-Vitamin 1 ea PO DAILY 10/29/16 09/15/22 History tablet) aspirin 81 mg tablet,delayed 81 mg PO DAILY #90 tabs 11/14/20 09/15/22 Rx release blood sugar diagnostic (FreeStyle #360 ea 08/01/21 09/15/22 Rx Test strips) metoprolol tartrate 25 mg tablet 25 mg PO Q12H #180 tabs 12/04/21 09/15/22 Rx pen needle,diabetic dual safty 30 #100 ea 12/04/21 09/15/22 Rx gauge x 3/16 (BD AutoShield Duo Pen Needle) metronidazole 0.75 % topical cream 1 applic topical QHS #45 grams 01/09/22 09/15/22 Rx ascorbic acid (vitamin C) 1,000 mg 1 g PO DAILY 05/21/22 09/15/22 History capsule biotin 1,000 mcg chewable tablet 1,000 mcg PO DAILY 05/21/22 09/15/22 History insulin glargine 100 unit/mL (3 20 unit (0.2 mL) subcut QHS #15 mL 05/21/22 09/15/22 Rx mL) subcutaneous pen (Basaglar KwikPen U-100 Insulin) magnesium 200 mg tablet 400 mg PO DAILY 05/21/22 09/15/22 History allopurinol 300 mg tablet 300 mg PO .MWF #36 tabs 09/04/22 09/15/22 Rx empagliflozin 25 mg tablet 25 mg PO QAM #90 tabs 09/04/22 09/15/22 Rx (Jardiance) tadalafil 10 mg tablet 10 mg PO ONCE PRN sexual activity 09/04/22 09/15/22 Rx #10 tabs Exam Narrative Exam Narrative: middle-age white male who appears to be severely dehydrated with dry mucous membranes pasty mucous to his lips and mouth. No white patches were or exudate seen on his palate. Patient responds to his name opens his eyes but is not following commands he was combative required soft wrist restraints as well as lorazepam for sedation. HEENT is atraumatic pupils equally round and reactive to direct and consensual light. Full extract motions intact sclera anicteric no visible trauma to his head. Neck is supple nontender neck veins are flat no HJR normal carotid pulses tachycardic without bruits no adenopathy Skin is dry with decreased skin turgor Lungs are clear to auscultation anteriorly and posteriorly Heart is regular but tachycardic no appreciable murmur rub no thrill or heave or gallop Abdomen nondistended soft but tender over the epigastrium with some voluntary guarding he has no rebound tenderness. Bowel sounds are present but hypoactive Extremities no peripheral edema he has palpable femoral and popliteal pulses but no palpable dorsalis pedis or posterior tibialis pulses his dorsalis pedis pulse could not be obtained by Doppler but the posterior tibial pulse was obtainable by Doppler. He has decreased capillary refill in both feet and toes are cool but not mottled Neuro exam is nonfocal no facial asymmetry, EOMI, PERRLA, moves all 4 ex tremities quite well and if not sedated and in restraints he will pull out his IV lines and his Krause catheter. Moves both legs well and attempted to kick staff. He is made attempts to climb out of bed necessitating chemical and physical restraints. He has not oriented other than answering his name. He did state however where he lives in terms of the town. Patient was unaware of his circumstances or the fact that he was in the hospital. Results Labs 09/16/22 06:10 09/16/22 10:30 Labs: Laboratory Results - last 24 hr 09/15/22 09/15/22 09/15/22 17:21 17:21 17:21 WBC 21.33 H RBC 4.17 L Hgb 14.4 Hct 46.5 MCV 112 H MCH 34.5 H MCHC 31.0 L RDW 12.6 Plt Count 375 MPV 10.7 Immature Gran % 0.0 Neutrophils % 60.0 Band Neutrophils % 7 Lymphocytes % 16.0 Monocytes % 16.0 Eosinophils % 0.0 Basophils % 0.0 Myelocytes % 1 Nucleated RBC % 0.0 Absolute Neutrophils 14.29 H Absolute Lymphocytes 3.41 H Absolute Monocytes 3.41 H Absolute Eosinophils 0.00 Absolute Basophils 0.00 RBC Morphology See Below Macrocytosis 2+ VBG Lactate Sodium 133 L Potassium 5.5 H Chloride 94 L Carbon Dioxide < 5.0 L* Anion Gap 34.06282 H BUN 19 H Creatinine 1.8 H Est GFR (CKD-EPI 2020) 43.90 Glucose 492 H Calcium 10.8 H Phosphorus Magnesium 2.1 Total Bilirubin 0.8 AST 70 H ALT 28 Alkaline Phosphatase 314 H Ammonia 77 H Troponin I 101 H* Total Protein 8.7 H Albumin 3.2 L Lipase 32 TSH 1.34 Urine Color Urine Clarity Urine pH Ur Specific [place] Urine Protein Urine Ketones Urine Blood Urine Nitrite Urine Bilirubin Urine Urobilinogen Ur Leukocyte Esterase Urine RBC Urine WBC Ur Epithelial Cells Urine Crystals Urine Bacteria Urine Casts Urine Mucus Ur Culture Indicated? Urine Glucose Urine Opiates Screen Urine Methadone Screen Ur Barbiturates Screen Ur Tricyclics Screen Ur Amphetamines Screen U Benzodiazepines Scrn Urine Cocaine Screen Ur THC Screen Ethyl Alcohol < 3.0 09/15/22 09/15/22 09/15/22 17:34 17:34 18:00 WBC RBC Hgb Hct MCV MCH MCHC RDW Plt Count MPV Immature Gran % Neutrophils % Band Neutrophils % Lymphocytes % Monocytes % Eosinophils % Basophils % Myelocytes % Nucleated RBC % Absolute Neutrophils Absolute Lymphocytes Absolute Monocytes Absolute Eosinophils Absolute Basophils RBC Morphology Macrocytosis VBG Lactate 3.3 H* Sodium Potassium Chloride Carbon Dioxide Anion Gap BUN Creatinine Est GFR (CKD-EPI 2020) Glucose Calcium Phosphorus Magnesium Total Bilirubin AST ALT Alkaline Phosphatase Ammonia Troponin I Total Protein Albumin Lipase TSH Urine Color Yellow Urine Clarity Clear Urine pH 5.0 Ur Specific [place] 1.020 Urine Protein 100 H Urine Ketones >=160 H Urine Blood Small H Urine Nitrite Negative Urine Bilirubin Small H Urine Urobilinogen 0.2 Ur Leukocyte Esterase Negative Urine RBC 0-2 Urine WBC 0-2 Ur Epithelial Cells Rare Urine Crystals Negative Urine Bacteria Few Urine Casts 0-2 Fine Granular Urine Mucus Trace Ur Culture Indicated? No Urine Glucose 500 H Urine Opiates Screen Negative Urine Methadone Screen Negative Ur Barbiturates Screen Negative Ur Tricyclics Screen Negative Ur Amphetamines Screen Negative U Benzodiazepines Scrn Negative Urine Cocaine Screen Negative Ur THC Screen Negative Ethyl Alcohol 09/15/22 09/15/22 09/15/22 18:00 18:00 20:43 WBC RBC Hgb Hct MCV MCH MCHC RDW Plt Count MPV Immature Gran % Neutrophils % Band Neutrophils % Lymphocytes % Monocytes % Eosinophils % Basophils % Myelocytes % Nucleated RBC % Absolute Neutrophils Absolute Lymphocytes Absolute Monocytes Absolute Eosinophils Absolute Basophils RBC Morphology Macrocytosis VBG Lactate Sodium 137 Potassium 4.2 D Chloride 101 Carbon Dioxide < 5.0 L* Anion Gap 31.95426 H BUN 16 Creatinine 1.5 H Est GFR (CKD-EPI 2020) 54.64 Glucose 418 H Calcium 8.6 Phosphorus 7.1 H Magnesium Total Bilirubin AST ALT Alkaline Phosphatase Ammonia Troponin I 281 H* Total Protein Albumin Lipase TSH Urine Color Urine Clarity Urine pH Ur Specific [place] Urine Protein Urine Ketones Urine Blood Urine Nitrite Urine Bilirubin Urine Urobilinogen Ur Leukocyte Esterase Urine RBC Urine WBC Ur Epithelial Cells Urine Crystals Urine Bacteria Urine Casts Urine Mucus Ur Culture Indicated? Urine Glucose Urine Opiates Screen Urine Methadone Screen Ur Barbiturates Screen Ur Tricyclics Screen Ur Amphetamines Screen U Benzodiazepines Scrn Urine Cocaine Screen Ur THC Screen Ethyl Alcohol 09/15/22 20:43 WBC RBC Hgb Hct MCV MCH MCHC RDW Plt Count MPV Immature Gran % Neutrophils % Band Neutrophils % Lymphocytes % Monocytes % Eosinophils % Basophils % Myelocytes % Nucleated RBC % Absolute Neutrophils Absolute Lymphocytes Absolute Monocytes Absolute Eosinophils Absolute Basophils RBC Morphology Macrocytosis VBG Lactate Sodium 136 Potassium 5.0 Chloride 96 L Carbon Dioxide 6.9 L Anion Gap 33.1 H BUN 18 Creatinine 1.7 H Est GFR (CKD-EPI 2020) 47.02 Glucose 460 H Calcium 9.9 Phosphorus Magnesium Total Bilirubin AST ALT Alkaline Phosphatase Ammonia Troponin I Total Protein Albumin Lipase TSH Urine Color Urine Clarity Urine pH Ur Specific [place] Urine Protein Urine Ketones Urine Blood Urine Nitrite Urine Bilirubin Urine Urobilinogen Ur Leukocyte Esterase Urine RBC Urine WBC Ur Epithelial Cells Urine Crystals Urine Bacteria Urine Casts Urine Mucus Ur Culture Indicated? Urine Glucose Urine Opiates Screen Urine Methadone Screen Ur Barbiturates Screen Ur Tricyclics Screen Ur Amphetamines Screen U Benzodiazepines Scrn Urine Cocaine Screen Ur THC Screen Ethyl Alcohol Last Vital Signs Temp 37.1 C 09/15/22 16:47 Pulse 124 H 09/15/22 20:46 Resp 30 H 09/15/22 20:07 BP 132/80 09/15/22 20:46 Pulse Ox 100 09/15/22 20:51 Time Spent Time spent with Patient: >75 minutes (165 minutes excluding time spent on POCUS; CC time spent continuously attending to patient at the bedside) Time was spent: preparing to see the patient(eg.review tests), obtaining and/or reviewing separately otained hiistory, ordering medications,tests, procedures, referring, communicating with other health career technology teacher, indepentently interpreting results, counseling the patient and care coordination
[2022-09-15] MEDS: POTASSIUM CHLORIDE/0.45% NACL 1,000 ML 200 MEQ IV (22:20)
[2022-09-15 22:21] LABS: BE (Venous) -30 mmol/L (-2-3); HCO3 (Venous) 4 mmol/L (23-28); O2 Sat (Venous) 70 %; TCO2 (Venous) 5 mmol/L (24-29); pCO2 (Venous) 26 mmHg (41-51); pO2 (Venous) 46 mmHg
[2022-09-15 22:24] LABS: pH (Venous) 6.83 (7.31-7.41)
[2022-09-15] MEDS: Sodium Bicarbonate 50 MEQ/50 ML SYR (22:33)
[2022-09-15] MEDS: PHENobarbital 130 MG/ML VIAL IVP (22:34)
[2022-09-15 22:37] LABS: Lactate 2.4 mmol/L (0.6-1.4)
[2022-09-15 22:44] LABS: Anion Gap 33.4 mmol/L (3-11); BUN 20 mg/dL (7-18); CO2 5.6 mmol/L (21.0-32.0); CREATININE 1.8 mg/dL (0.70-1.30); Calcium 10.4 mg/dL (8.5-10.1); Chloride 97 mmol/L (98-107); Glucose 450 mg/dL (74-106); Sodium 136 mmol/L (136-145)
[2022-09-15 22:50] LABS: Troponin I 314 ng/L (<or=60)
[2022-09-15 22:52] LABS: INR 1.1 (0.9-1.1); Prothrombin Time 11.5 sec (9.3-11.0)
[2022-09-15] MEDS: LORazepam 2 MG/ML VIAL IVP (23:15)
--- NOTE | 2022-09-15 23:15 | W.POCUS ---
Pocus Exam Limited Cardiac Exam DATE OF EXAM: 09/15/22 TIME OF EXAM: 22:18 PROVIDER THAT PERFORMED THE STUDY: Benjamin Chamorro REASON FOR EXAM: Other (DKA, metabolic acidosis, evaluate LV, RV fxn, evaluate volume status) indication: DKA, metabolic acidosis, elevated troponin, evaluate LV and RV function VISUALIZED STRUCTURES: four chambers, left atrium, left ventricle, LVOT (2.06 cm), right atrium, right ventricle, aortic valve, mitral valve, Interventricular septum and IVC (1.51 cm max, 0.81 cm min. collapsability index 46%) VIEW OBTAINED: Apical 4-Chamber, Parasternal long-axis, Parasternal short-axis (limited views of PSAX d/t lung interference and patient motion) and Subxiphoid PERTINENT FINDINGS/IMPRESSION: IVC inspiratory collapsability and Other Normal LV systolic function, no RWMA, normal RV systolic function, no MR, trace to mild TR, avg VTI 18.18, LVOT 2.06, calculated SV 60.6, CO 7.27 L, CI 3.09 ; No LV dysfunction, No pericardial effusion, No plethoric IVC, No RV dilation and No RV dysfunction Exam complete
--- NOTE | 2022-09-15 23:52 | POCUS_ITS ---
Pocus Exam Limited Thoracic Lung Exam DATE OF EXAM: 09/15/22 TIME OF EXAM: 22:58 PROVIDER THAT PERFORMED THE STUDY: Benjamin Chamorro IS THIS A REPEAT EXAM DURING THIS ENCOUNTER: No REASON FOR EXAM: Shortness ofBreath VISUALIZED STRUCTURES: right anterior, left anterior, right lateral, left lateral, right subcostal and left subcostal PERTINENT FINDINGS/IMPRESSION: B-lines/left side thoracis location: lateral, B- lines/right side thoracis location: lateral and Other impression: normal A line pattern bilaterally in upper and mid lung mehta but bibasilar B lines w/out consolidation or effusions; may imply early interstitial edema vs early pneumonia ; no pneumonia noted, no pleural effusion on the left and no pleural effusion on the right Exam complete
[2022-09-16] VITALS (171 sets, daily range): BP systolic 67–157; BP diastolic 46–104; PULSE 68–168; RESP 0–33; TEMP 35.6–37; O2SAT 87–100
[2022-09-16] MEDS: dilTIAZem 25 MG/5 ML VIAL 10 MG IVP (00:49)
[2022-09-16] MEDS: Normal Saline Flush 10 ML SYR IVP ×3 (00:50→08:47)
[2022-09-16] MEDS: MEROPENEM 1 GM in Normal Saline 100 ML IVPB ×3 (00:58→16:28)
[2022-09-16 01:00] LABS: BE (Venous) -27 mmol/L (-2-3); HCO3 (Venous) 6 mmol/L (23-28); O2 Sat (Venous) 59 %; TCO2 (Venous) 6 mmol/L (24-29); pCO2 (Venous) 27 mmHg (41-51); pO2 (Venous) 34 mmHg
[2022-09-16] MEDS: Aspirin 300 MG SUPP PR (01:00)
[2022-09-16 01:02] LABS: pH (Venous) 6.92 (7.31-7.41)
[2022-09-16 01:03] LABS: Lactate 2.3 mmol/L (0.6-1.4)
[2022-09-16] MEDS: Sodium Bicarbonate 50 MEQ/50 ML SYR IVP (01:18)
[2022-09-16 01:25] LABS: Anion Gap 31.2 mmol/L (3-11); BUN 20 mg/dL (7-18); CO2 7.8 mmol/L (21.0-32.0); CREATININE 1.7 mg/dL (0.70-1.30); Calcium 10.2 mg/dL (8.5-10.1); Chloride 99 mmol/L (98-107); Creatine Kinase 158 U/L (39-308); Estimated GFR 47.02 (mL/min/1.73m2); Glucose 379 mg/dL (74-106); Sodium 138 mmol/L (136-145)
[2022-09-16 01:33] LABS: Troponin I 396 ng/L (<or=60)
[2022-09-16] MEDS: Pantoprazole 40 MG VIAL IVP ×2 (01:35→21:48)
[2022-09-16] MEDS: Enoxaparin 40 MG/0.4 ML SYR SC ×2 (01:36→21:48)
[2022-09-16 01:45] LABS: Procalcitonin 0.6 ng/mL
[2022-09-16] MEDS: Metoprolol 5 MG/5 ML VIAL IVP ×2 (02:15→08:47)
[2022-09-16] MEDS: THIAMINE 500 MG in Normal Saline 100 ML 200 MG IVPB ×3 (02:23→18:20)
[2022-09-16 02:36] LABS: Anion Gap 31.8 mmol/L (3-11); BUN 19 mg/dL (7-18); CO2 7.2 mmol/L (21.0-32.0); CREATININE 1.6 mg/dL (0.70-1.30); Calcium 10.4 mg/dL (8.5-10.1); Chloride 100 mmol/L (98-107); Estimated GFR 50.57 (mL/min/1.73m2); Glucose 357 mg/dL (74-106); Potassium 5.1 mmol/L (3.5-5.1); Sodium 139 mmol/L (136-145)
[2022-09-16] MEDS: Norepinephrine in D5W 8 MG/250 ML BAG 22.5 MG IV (03:00)
[2022-09-16] MEDS: Normal Saline 500 ML 1000 ML IV (03:15)
[2022-09-16] MEDS: POTASSIUM CHLORIDE/0.45% NACL 1,000 ML 200 MEQ IV (03:48)
--- NOTE | 2022-09-16 04:15 | DI.RAD_ITS ---
Exam(s) XR PORTABLE CHEST AP POST LINE EXAM: XR PORTABLE CHEST AP POST LINE CLINICAL HISTORY: post line placement TECHNIQUE: 2D digital imaging was performed of the chest. One image was obtained. An AP view was ob tained. COMPARISON: CR XR CHEST 2V PA LATERAL from 11/21/[address] CHEST/ABD/PEL W from 09/15/2022 FINDINGS: The tip of the right jugular line is seen in good position in the superior vena cava. There is poor inspiration. MEDIASTINUM: Normal. HEART: Normal. PULMONARY VASCULATURE: Normal. LUNGS: No focal consolidating infiltrates. Mild increased lung markings present which may be due to poor inspiration. Mild interstitial edema cannot be excluded. PLEURAL SPACE: No pleural effusion or pneumothorax. BONE:Within normal limits for the patient's age. OTHER FINDINGS:Normal. IMPRESSION: Tip of the right IJ line is seen in in good position in the superior vena cava. No definite pneumoth orax. If there is continued clinical concern a repeat chest x-ray may be obtained with inspiration a nd expiration views. DATA REPOSITORY: RADIATION DOSE DELIVERED:
--- NOTE | 2022-09-16 04:33 | ROE_ITS ---
Date of service: 09/16/22 Time of Service: 04:25 Operative Note Operative Note DATE OF PROCEDURE: 09/16/22 PRE-OP DIAGNOSIS: hypotension, metabolic acidosis, elevated troponin, DKA POST-OP DIAGNOSIS: same PROCEDURE: right internal jugular central venous triple lumen catheter palcement SURGEON: Benjamin Chamorro ANESTHESIA TYPE: Local By Surgeon ESTIMATED BLOOD LOSS: 5 PATHOLOGY: none sent COMPLICATIONS: Other (inadvertent needle puncture of CAREN, immediately recognized and needle pulled back before cannulation of CAREN; pressure held, then ultrasound probe repositioned on axis w/ IJV) Patient was transported to: no change Patient's condition: critical Indications: hypotension requiring vasopressors Findings: After obtaining verbal informed consent including discussion of indications, alternative treatments, potential complications patient's daughter, Ly, consented to placement of triple-lumen central venous catheter. Timeout was taken to verify correct patient correct procedure and correct site. Patient was prepped and draped in sterile fashion after I had gowned and gloved and masked in a sterile fashion. Using the materials from an Arrow 7 [place]ian 3 lm 20 cm catheter along pressure injectable aero guard Blue +3 lumen CVC catheter kit. 5 mL of 1% lidocaine was used to locally anesthetize the skin and subcutaneous tissue and using SonoSite PX L 12-3 trans linear ultrasound probe which had been covered in sterile probe cover to identify the internal jugular vein. The vein was cannulated using 18 gauge echogenic introducer needle XTW w/ Arrow 5 mL syringe w/ Rajan spring wire introducer syringe and spring wire guide w/ J tip spring wire and w/ Arrow guide wheel w/ wire advancer.. Needle was followed under ultrasound guidance but do to movement, the transducer came off axis and blood was seen to return within the syringe but when the needle was not confirmed within the IJV, the needle was withdrawn, pressure was held. Landmarks were reconfirmed w/ ultrasound and this time the needle was followed from skin through subcutaneous tissue into the internal jugular vein. Dark red nonpu lsatile blood flow was obtained through the syringe. Using Salinger technique the enclosed spring wire guide with flexible J-tip guidewire was advanced through the needle and the needle was withdrawn. Small incision was used with the enclosed scalpel to allow introduction of the vessel dilator. After dilation of vessel slow dark red nonpulsatile blood flow occurred through the site. Vessel dilator was withdrawn and the previously filled triple-lumen catheter was advanced over the guidewire to the level of 15 cm at the skin. Guidewire was withdrawn. Blood flow was withdrawn through each of the ports and the triple-lumen catheter and then flushed a second time. Catheter was then secured at the skin incision site using the enclosed second site adjustable hub fastener and catheter clamp which were then sutured to the skin. Bio dot was applied over the catheter entry site and a dry sterile dressing with a clear window was applied over the entry site and catheter. [id number] ultrasound was done of her lungs to ensure there was no evidence for pneumothorax. Bubble study was performed which also confirmed proper placement of the catheter in the IVC with bubbles entering the right atrium from the SVC. Stat portable chest x- ray was performed and results are pending. I reviewed the x-ray myself the catheter tip appears to be at the within the SVC above the right atrium. Bj mcdonald tolerated procedure well. No swelling of the neck was seen. Family was informed of the results of the procedure including inadvertent CAREN puncture.
[2022-09-16 04:59] LABS: Anion Gap 28.8 mmol/L (3-11); BUN 20 mg/dL (7-18); CO2 8.2 mmol/L (21.0-32.0); CREATININE 1.6 mg/dL (0.70-1.30); Calcium 8.9 mg/dL (8.5-10.1); Chloride 104 mmol/L (98-107); Estimated GFR 50.57 (mL/min/1.73m2); Glucose 255 mg/dL (74-106); Potassium 4.8 mmol/L (3.5-5.1); Sodium 141 mmol/L (136-145)
[2022-09-16 05:29] LABS: BE (Venous) -23 mmol/L (-2-3); HCO3 (Venous) 7 mmol/L (23-28); O2 Sat (Venous) 83 %; TCO2 (Venous) 6 mmol/L (24-29); pCO2 (Venous) 21 mmHg (41-51); pO2 (Venous) 47 mmHg
[2022-09-16 05:36] LABS: pH (Venous) 7.11 (7.31-7.41)
[2022-09-16] MEDS: Norepinephrine in D5W 8 MG/250 ML BAG 11.25 MG IV (05:45)
--- NOTE | 2022-09-16 05:46 | DI.VRAD_ITS ---
PROCEDURE INFORMATION: Exam: XR Chest Exam date and time: 09/16/2022 4:34 AM Age: 56 years old Clinical indication: Device placement; Other: Central line placement TECHNIQUE: Imaging protocol: Radiologic exam of the chest. Views: 1 view. COMPARISON: CT CHEST/ABD/PEL W 09/15/2022 6:31 PM FINDINGS: Tubes, catheters and devices: A right internal jugular central venous line is in place, tip mid superior vena cava. Monitoring wires are present. Lungs: Interstitial prominence noted in both lungs. No consolidation. Pleural spaces: Unremarkable. No pleural effusion. No pneumothorax. Heart/Mediastinum: Unremarkable. No cardiomegaly. Bones/joints: Unremarkable. IMPRESSION: 1. No complications following central line placement. 2. Interstitial infiltrates and/or edema. Dictated and Authenticated by: Adama French MD. [facility] Pedro Pablo Alexander MD
[2022-09-16 06:21] LABS: Absolute Lymphocyte Count 2.19 10^3/uL (1.2-3.4); Absolute Monocyte Count 1.67 10^3/uL (0.1-0.8); Basophils % 0.3; HCT 41.3 % (40.0-50.0); HGB 13.7 g/dL (13.5-17.5); Immature Grans % 1.6; Lymphocytes % 11.7; MCH 34.7 pg (27.0-33.0); MCHC 33.2 % (32.0-36.0); MCV 105 fL (80-95); MPV 10.4 fL (8.0-11.0); Monocytes % 8.9; Neutrophils % 77.5; Platelet Count 308 10^3/uL (130-400); RBC 3.95 10^6/uL (4.36-5.78); RDW 12.7 % (11.8-14.1); WBC 18.71 10^3/uL (4.4-10.8)
[2022-09-16 06:31] LABS: Absolute Basophil Count 0.06 10^3/uL (0.0-0.2)
[2022-09-16 06:36] LABS: Magnesium 1.7 mg/dL (1.8-2.4)
[2022-09-16 06:41] LABS: ALT 32 U/L (16-63); AST 70 U/L (15-37); Albumin 2.8 g/dL (3.4-5.0); Alkaline Phosphatase 257 U/L (46-116); Bilirubin, Direct 0.4 mg/dL (0.0-0.2); Bilirubin, Total 0.9 mg/dL (0.2-1.0); PHOSPHORUS 2.8 mg/dL (2.6-4.7); Total Protein 7.5 g/dL (6.4-8.2)
[2022-09-16 06:42] LABS: ALT 32 U/L (16-63); AST 71 U/L (15-37); Albumin 2.8 g/dL (3.4-5.0); Alkaline Phosphatase 257 U/L (46-116); Anion Gap 26.7 mmol/L (3-11); BUN 20 mg/dL (7-18); Bilirubin, Total 0.8 mg/dL (0.2-1.0); CO2 9.3 mmol/L (21.0-32.0); CREATININE 1.5 mg/dL (0.70-1.30); Calcium 8.9 mg/dL (8.5-10.1); Calculated LDL 87 mg/dL (<100); Chloride 105 mmol/L (98-107); Cholesterol 162 mg/dL (<200); Estimated GFR 54.64 (mL/min/1.73m2); Glucose 210 mg/dL (74-106); HDL Cholesterol 52 mg/dL (40-60); Potassium 4.8 mmol/L (3.5-5.1); Sodium 141 mmol/L (136-145); Total Protein 7.5 g/dL (6.4-8.2); Triglyceride 117 mg/dL (<150)
[2022-09-16 06:46] LABS: Ammonia 18 umol/L (11-32)
--- NOTE | 2022-09-16 06:53 | W.PULMCC ---
General Date of Service Date of service: 09/16/22 Time of Service: 06:53 Reason for Admission to ICU: DKA Assessment and Plan Assessment and plan (1) DKA (diabetic ketoacidosis): Status: Acute (2) Hypovolemic shock: Status: Acute (3) High anion gap metabolic acidosis: Status: Acute (4) Elevated troponin I level: Status: Acute (5) TULIO (acute kidney injury): Status: Acute (6) Normal anion gap metabolic acidosis: Status: Acute (7) Pancreatic pseudocyst: Status: Chronic (8) Lactic acidosis: Status: Acute (9) Neutrophilic leukocytosis: Status: Acute (10) Chronic pancreatitis due to acute alcohol intoxication: Status: Acute (11) Hypomagnesemia: Status: Acute (12) Alcohol use disorder: Status: Acute Assessment and plan: This is a 56 yo with type 1 diabetes admitted to the ICU for DKA. There is no clear UTI, cellulitis or pneumonia. He does have a growing pseudocyst, and I wonder if his chronic pancreatitis along with this and possible non compliance is the trigger for the DKA. He is non participatory for me today to answer questions. He was started on meropenem and it seems reasonable to continue this until getting recommendations from GI. He was in hypovolemic shock that is now improved and he has been liberated from vasopressors. With regard to his acid base status, he has a mixed gap and non-gap metabolic acidosis. The non gap component is likely due to his TULIO. With the very low bicarb and euvolemia to hypovolemia, I would recommend an isotonic bicarb infusion (one bag). His blood glucose is improved and he can be starton on D51/2NS, but will need to remain on this and the insulin infusion for some time given his acid base status. I will give him long acting insulin this morning (typically he takes it in the afternoon - so will need adjustments) Recommendations Pulmonary: No acute concerns Cardiac: Hypovolemic shock - s/p resuscitation - continue IVF per DKA protocol - norepinephrine no longer needed Elevated troponin - no longer rising, non ischemic EKG - due to demand - no need to continue trending unless clinic change Renal: TULIO - likely pre-renal from DKA - continue to monitor AGMA and NAGMA - due to lactate, DKA and renal failure - lactate resolved - DKA improving - 1 bag isotonic bicarb being infused to treat NAGMA Lactic acidosis - improved Hypomagnesemia - replete to 2 I&O: Intake & Output 09/13/22 09/14/22 09/15/22 09/16/22 23:59 23:59 23:59 23:59 Intake Total 5509.000 / 5509.000 1788.018 / 1788.018 Output Total 3350 / 3350 1375 / 1375 Balance 2159.000 / 2159.000 413.018 / 413.018 Weight 87.5 kg Daily Fluid Goal:: positive GI Nutrition: Nutrition - recommend diet when patient is able to tolerate this Growing pseudocyst - Dr. Sargent [place] [facility] [place] [facility] [place] further management - on meropenem Chronic pancreatitis - fluids and on meropenem Infectious Disease: As above Hematologic: Leukocytosis - will continue to monitor Neurologic: Alcohol use disorder - s/p first loading dose of phenobarb - monitor and give boluses as needed for signs of withdrawl - on MVI, folate and thiamine Endocrine: DKA - transition isotonic IVF to D51/2NS - continue insulin infusion per Agenda protocol - Lantus 20U given - change q2h labs to q4h - VBG q4h - once DKA resolved, labs can be walked back Lines: R IJ CVC Tellez Prophylaxis: Lovenox Protonix Code Status: Resuscitation Status Full Code Subjective Critical and life-threatening events over the past 24 hours: This is a 56 yo admitted to the ICU for DKA (see H&P for details). It is suspected that the DKA was due to noncompliance, however he does have a known pancreatic pseudocyst that is growing as well as chronic pancreatitis, so he was started on meropenem for coverage. He was severely acidotic and did receive ampules of bircab to help with this. He was not given long acting insulin and did require norepinephrine for a short period of time. Today he opens his eyes and tracks to voice. He does not answer questions. Exam Narrative Exam Narrative: Gen: NAD, normal respiratory effort, well-nourished HENT: PERRL Chest: No respiratory distress, normal appearance of chest, clear to auscultation bilaterally, no crackles or wheezes, normal inspiratory effort Heart: regular rate and rhythym, no murmurs, rubs or gallops Abdomen: Non-distended, soft, non tender Extremities: No clubbing, edema, cyanosis. spider telangiectasias on legs and abdomen Neuro: non participatory Psych: non participatory Most Recent VS/Results Last Vital Signs Temp 35.6 C L 09/15/22 23:01 Pulse 163 H 09/16/22 06:31 Resp 16 09/16/22 06:31 BP 129/92 H 09/16/22 06:31 Pulse Ox 99 09/16/22 06:31 Laboratory Results - last 24 hr 09/15/22 09/15/22 09/15/22 17:21 17:21 17:21 WBC 21.33 H RBC 4.17 L Hgb 14.4 Hct 46.5 MCV 112 H MCH 34.5 H MCHC 31.0 L RDW 12.6 Plt Count 375 MPV 10.7 Immature Gran % 0.0 Neutrophils % 60.0 Band Neutrophils % 7 Lymphocytes % 16.0 Monocytes % 16.0 Eosinophils % 0.0 Basophils % 0.0 Myelocytes % 1 Nucleated RBC % 0.0 Absolute Neutrophils 14.29 H Absolute Lymphocytes 3.41 H Absolute Monocytes 3.41 H Absolute Eosinophils 0.00 Absolute Basophils 0.00 RBC Morphology See Below Macrocytosis 2+ PT INR VBG pH VBG pCO2 VBG pO2 VBG HCO3 VBG Total CO2 VBG O2 Saturation VBG Base Excess VBG Lactate Sodium 133 L Potassium 5.5 H Chloride 94 L Carbon Dioxide < 5.0 L* Anion Gap 34.26660 H BUN 19 H Creatinine 1.8 H Est GFR (CKD-EPI 2020) 43.90 Glucose 492 H Calcium 10.8 H Phosphorus Magnesium 2.1 Total Bilirubin 0.8 AST 70 H ALT 28 Alkaline Phosphatase 314 H Ammonia 77 H Creatine Kinase Troponin I 101 H* Total Protein 8.7 H Albumin 3.2 L Lipase 32 Procalcitonin TSH 1.34 Urine Color Urine Clarity Urine pH Ur Specific [place] Urine Protein Urine Ketones Urine Blood Urine Nitrite Urine Bilirubin Urine Urobilinogen Ur Leukocyte Esterase Urine RBC Urine WBC Ur Epithelial Cells Urine Crystals Urine Bacteria Urine Casts Urine Mucus Ur Culture Indicated? Urine Glucose Urine Opiates Screen Urine Methadone Screen Ur Barbiturates Screen Ur Tricyclics Screen Ur Amphetamines Screen U Benzodiazepines Scrn Urine Cocaine Screen Ur THC Screen Ethyl Alcohol < 3.0 09/15/22 09/15/22 09/15/22 17:34 17:34 18:00 WBC RBC Hgb Hct MCV MCH MCHC RDW Plt Count MPV Immature Gran % Neutrophils % Band Neutrophils % Lymphocytes % Monocytes % Eosinophils % Basophils % Myelocytes % Nucleated RBC % Absolute Neutrophils Absolute Lymphocytes Absolute Monocytes Absolute Eosinophils Absolute Basophils RBC Morphology Macrocytosis PT INR VBG pH VBG pCO2 VBG pO2 VBG HCO3 VBG Total CO2 VBG O2 Saturation VBG Base Excess VBG Lactate 3.3 H* Sodium Potassium Chloride Carbon Dioxide Anion Gap BUN Creatinine Est GFR (CKD-EPI 2020) Glucose Calcium Phosphorus Magnesium Total Bilirubin AST ALT Alkaline Phosphatase Ammonia Creatine Kinase Troponin I Total Protein Albumin Lipase Procalcitonin TSH Urine Color Yellow Urine Clarity Clear Urine pH 5.0 Ur Specific [place] 1.020 Urine Protein 100 H Urine Ketones >=160 H Urine Blood Small H Urine Nitrite Negative Urine Bilirubin Small H Urine Urobilinogen 0.2 Ur Leukocyte Esterase Negative Urine RBC 0-2 Urine WBC 0-2 Ur Epithelial Cells Rare Urine Crystals Negative Urine Bacteria Few Urine Casts 0-2 Fine Granular Urine Mucus Trace Ur Culture Indicated? No Urine Glucose 500 H Urine Opiates Screen Negative Urine Methadone Screen Negative Ur Barbiturates Screen Negative Ur Tricyclics Screen Negative Ur Amphetamines Screen Negative U Benzodiazepines Scrn Negative Urine Cocaine Screen Negative Ur THC Screen Negative Ethyl Alcohol 09/15/22 09/15/22 09/15/22 18:00 18:00 20:43 WBC RBC Hgb Hct MCV MCH MCHC RDW Plt Count MPV Immature Gran % Neutrophils % Band Neutrophils % Lymphocytes % Monocytes % Eosinophils % Basophils % Myelocytes % Nucleated RBC % Absolute Neutrophils Absolute Lymphocytes Absolute Monocytes Absolute Eosinophils Absolute Basophils RBC Morphology Macrocytosis PT INR VBG pH VBG pCO2 VBG pO2 VBG HCO3 VBG Total CO2 VBG O2 Saturation VBG Base Excess VBG Lactate Sodium 137 Potassium 4.2 D Chloride 101 Carbon Dioxide < 5.0 L* Anion Gap 31.40947 H BUN 16 Creatinine 1.5 H Est GFR (CKD-EPI 2020) 54.64 Glucose 418 H Calcium 8.6 Phosphorus 7.1 H Magnesium Total Bilirubin AST ALT Alkaline Phosphatase Ammonia Creatine Kinase Troponin I 281 H* Total Protein Albumin Lipase Procalcitonin TSH Urine Color Urine Clarity Urine pH Ur Specific [place] Urine Protein Urine Ketones Urine Blood Urine Nitrite Urine Bilirubin Urine Urobilinogen Ur Leukocyte Esterase Urine RBC Urine WBC Ur Epithelial Cells Urine Crystals Urine Bacteria Urine Casts Urine Mucus Ur Culture Indicated? Urine Glucose Urine Opiates Screen Urine Methadone Screen Ur Barbiturates Screen Ur Tricyclics Screen Ur Amphetamines Screen U Benzodiazepines Scrn Urine Cocaine Screen Ur THC Screen Ethyl Alcohol 09/15/22 09/15/22 09/15/22 20:43 22:15 22:15 WBC RBC Hgb Hct MCV MCH MCHC RDW Plt Count MPV Immature Gran % Neutrophils % Band Neutrophils % Lymphocytes % Monocytes % Eosinophils % Basophils % Myelocytes % Nucleated RBC % Absolute Neutrophils Absolute Lymphocytes Absolute Monocytes Absolute Eosinophils Absolute Basophils RBC Morphology Macrocytosis PT INR VBG pH VBG pCO2 VBG pO2 VBG HCO3 VBG Total CO2 VBG O2 Saturation VBG Base Excess VBG Lactate Sodium 136 136 Potassium 5.0 5.0 Chloride 96 L 97 L Carbon Dioxide 6.9 L 5.6 L Anion Gap 33.1 H 33.4 H BUN 18 20 H Creatinine 1.7 H 1.8 H Est GFR (CKD-EPI 2020) 47.02 43.90 Glucose 460 H 450 H Calcium 9.9 10.4 H Phosphorus Magnesium Total Bilirubin AST ALT Alkaline Phosphatase Ammonia Creatine Kinase Troponin I 314 H* Total Protein Albumin Lipase Procalcitonin TSH Urine Color Urine Clarity Urine pH Ur Specific [place] Urine Protein Urine Ketones Urine Blood Urine Nitrite Urine Bilirubin Urine Urobilinogen Ur Leukocyte Esterase Urine RBC Urine WBC Ur Epithelial Cells Urine Crystals Urine Bacteria Urine Casts Urine Mucus Ur Culture Indicated? Urine Glucose Urine Opiates Screen Urine Methadone Screen Ur Barbiturates Screen Ur Tricyclics Screen Ur Amphetamines Screen U Benzodiazepines Scrn Urine Cocaine Screen Ur THC Screen Ethyl Alcohol 09/15/22 09/15/22 09/15/22 22:15 22:15 22:35 WBC RBC Hgb Hct MCV MCH MCHC RDW Plt Count MPV Immature Gran % Neutrophils % Band Neutrophils % Lymphocytes % Monocytes % Eosinophils % Basophils % Myelocytes % Nucleated RBC % Absolute Neutrophils Absolute Lymphocytes Absolute Monocytes Absolute Eosinophils Absolute Basophils RBC Morphology Macrocytosis PT 11.5 H INR 1.1 VBG pH 6.83 L* VBG pCO2 26 L VBG pO2 46 VBG HCO3 4 L VBG Total CO2 5 L VBG O2 Saturation 70 VBG Base Excess -30 L VBG Lactate 2.4 H* Sodium Potassium Chloride Carbon Dioxide Anion Gap BUN Creatinine Est GFR (CKD-EPI 2020) Glucose Calcium Phosphorus Magnesium Total Bilirubin AST ALT Alkaline Phosphatase Ammonia Creatine Kinase Troponin I Total Protein Albumin Lipase Procalcitonin TSH Urine Color Urine Clarity Urine pH Ur Specific [place] Urine Protein Urine Ketones Urine Blood Urine Nitrite Urine Bilirubin Urine Urobilinogen Ur Leukocyte Esterase Urine RBC Urine WBC Ur Epithelial Cells Urine Crystals Urine Bacteria Urine Casts Urine Mucus Ur Culture Indicated? Urine Glucose Urine Opiates Screen Urine Methadone Screen Ur Barbiturates Screen Ur Tricyclics Screen Ur Amphetamines Screen U Benzodiazepines Scrn Urine Cocaine Screen Ur THC Screen Ethyl Alcohol 09/16/22 09/16/22 09/16/22 00:50 00:50 00:50 WBC RBC Hgb Hct MCV MCH MCHC RDW Plt Count MPV Immature Gran % Neutrophils % Band Neutrophils % Lymphocytes % Monocytes % Eosinophils % Basophils % Myelocytes % Nucleated RBC % Absolute Neutrophils Absolute Lymphocytes Absolute Monocytes Absolute Eosinophils Absolute Basophils RBC Morphology Macrocytosis PT INR VBG pH 6.92 L* VBG pCO2 27 L VBG pO2 34 VBG HCO3 6 L VBG Total CO2 6 L VBG O2 Saturation 59 VBG Base Excess -27 L VBG Lactate 2.3 H* Sodium Potassium Chloride Carbon Dioxide Anion Gap BUN Creatinine Est GFR (CKD-EPI 2020) Glucose Calcium Phosphorus Magnesium Total Bilirubin AST ALT Alkaline Phosphatase Ammonia Creatine Kinase Troponin I 396 H* Total Protein Albumin Lipase Procalcitonin TSH Urine Color Urine Clarity Urine pH Ur Specific [place] Urine Protein Urine Ketones Urine Blood Urine Nitrite Urine Bilirubin Urine Urobilinogen Ur Leukocyte Esterase Urine RBC Urine WBC Ur Epithelial Cells Urine Crystals Urine Bacteria Urine Casts Urine Mucus Ur Culture Indicated? Urine Glucose Urine Opiates Screen Urine Methadone Screen Ur Barbiturates Screen Ur Tricyclics Screen Ur Amphetamines Screen U Benzodiazepines Scrn Urine Cocaine Screen Ur THC Screen Ethyl Alcohol 09/16/22 09/16/22 09/16/22 00:50 00:50 02:15 WBC RBC Hgb Hct MCV MCH MCHC RDW Plt Count MPV Immature Gran % Neutrophils % Band Neutrophils % Lymphocytes % Monocytes % Eosinophils % Basophils % Myelocytes % Nucleated RBC % Absolute Neutrophils Absolute Lymphocytes Absolute Monocytes Absolute Eosinophils Absolute Basophils RBC Morphology Macrocytosis PT INR VBG pH VBG pCO2 VBG pO2 VBG HCO3 VBG Total CO2 VBG O2 Saturation VBG Base Excess VBG Lactate Sodium 138 139 Potassium 5.0 5.1 Chloride 99 100 Carbon Dioxide 7.8 L 7.2 L Anion Gap 31.2 H 31.8 H BUN 20 H 19 H Creatinine 1.7 H 1.6 H Est GFR (CKD-EPI 2020) 47.02 50.57 Glucose 379 H 357 H Calcium 10.2 H 10.4 H Phosphorus Magnesium Total Bilirubin AST ALT Alkaline Phosphatase Ammonia Creatine Kinase 158 Troponin I Total Protein Albumin Lipase Procalcitonin 0.6 TSH Urine Color Urine Clarity Urine pH Ur Specific [place] Urine Protein Urine Ketones Urine Blood Urine Nitrite Urine Bilirubin Urine Urobilinogen Ur Leukocyte Esterase Urine RBC Urine WBC Ur Epithelial Cells Urine Crystals Urine Bacteria Urine Casts Urine Mucus Ur Culture Indicated? Urine Glucose Urine Opiates Screen Urine Methadone Screen Ur Barbiturates Screen Ur Tricyclics Screen Ur Amphetamines Screen U Benzodiazepines Scrn Urine Cocaine Screen Ur THC Screen Ethyl Alcohol 09/16/22 09/16/22 09/16/22 04:25 05:22 06:10 WBC 18.71 H RBC 3.95 L Hgb 13.7 Hct 41.3 MCV 105 H D MCH 34.7 H MCHC 33.2 D RDW 12.7 Plt Count 308 MPV 10.4 Immature Gran % 1.6 Neutrophils % 77.5 Band Neutrophils % Lymphocytes % 11.7 Monocytes % 8.9 Eosinophils % 0.0 Basophils % 0.3 Myelocytes % Nucleated RBC % 0.0 Absolute Neutrophils 14.50 H Absolute Lymphocytes 2.19 Absolute Monocytes 1.67 H Absolute Eosinophils 0.00 Absolute Basophils 0.06 RBC Morphology Macrocytosis PT INR VBG pH 7.11 L* VBG pCO2 21 L VBG pO2 47 VBG HCO3 7 L VBG Total CO2 6 L VBG O2 Saturation 83 VBG Base Excess -23 L VBG Lactate Sodium 141 Potassium 4.8 Chloride 104 Carbon Dioxide 8.2 L Anion Gap 28.8 H BUN 20 H Creatinine 1.6 H Est GFR (CKD-EPI 2020) 50.57 Glucose 255 H Calcium 8.9 Phosphorus Magnesium Total Bilirubin AST ALT Alkaline Phosphatase Ammonia Creatine Kinase Troponin I Total Protein Albumin Lipase Procalcitonin TSH Urine Color Urine Clarity Urine pH Ur Specific [place] Urine Protein Urine Ketones Urine Blood Urine Nitrite Urine Bilirubin Urine Urobilinogen Ur Leukocyte Esterase Urine RBC Urine WBC Ur Epithelial Cells Urine Crystals Urine Bacteria Urine Casts Urine Mucus Ur Culture Indicated? Urine Glucose Urine Opiates Screen Urine Methadone Screen Ur Barbiturates Screen Ur Tricyclics Screen Ur Amphetamines Screen U Benzodiazepines Scrn Urine Cocaine Screen Ur THC Screen Ethyl Alcohol 09/16/22 09/16/22 09/16/22 06:10 06:10 06:15 WBC RBC Hgb Hct MCV MCH MCHC RDW Plt Count MPV Immature Gran % Neutrophils % Band Neutrophils % Lymphocytes % Monocytes % Eosinophils % Basophils % Myelocytes % Nucleated RBC % Absolute Neutrophils Absolute Lymphocytes Absolute Monocytes Absolute Eosinophils Absolute Basophils RBC Morphology Macrocytosis PT INR VBG pH VBG pCO2 VBG pO2 VBG HCO3 VBG Total CO2 VBG O2 Saturation VBG Base Excess VBG Lactate 1.0 Sodium Cancelled Potassium Cancelled Chloride Cancelled Carbon Dioxide Cancelled Anion Gap Cancelled BUN Cancelled Creatinine Cancelled Est GFR (CKD-EPI 2020) Cancelled Glucose Cancelled Calcium Cancelled Phosphorus Magnesium 1.7 L Total Bilirubin AST ALT Alkaline Phosphatase Ammonia Creatine Kinase Troponin I Total Protein Albumin Lipase Procalcitonin TSH Urine Color Urine Clarity Urine pH Ur Specific [place] Urine Protein Urine Ketones Urine Blood Urine Nitrite Urine Bilirubin Urine Urobilinogen Ur Leukocyte Esterase Urine RBC Urine WBC Ur Epithelial Cells Urine Crystals Urine Bacteria Urine Casts Urine Mucus Ur Culture Indicated? Urine Glucose Urine Opiates Screen Urine Methadone Screen Ur Barbiturates Screen Ur Tricyclics Screen Ur Amphetamines Screen U Benzodiazepines Scrn Urine Cocaine Screen Ur THC Screen Ethyl Alcohol 09/16/22 14:00 WBC RBC Hgb Hct MCV MCH MCHC RDW Plt Count MPV Immature Gran % Neutrophils % Band Neutrophils % Lymphocytes % Monocytes % Eosinophils % Basophils % Myelocytes % Nucleated RBC % Absolute Neutrophils Absolute Lymphocytes Absolute Monocytes Absolute Eosinophils Absolute Basophils RBC Morphology Macrocytosis PT INR VBG pH Cancelled VBG pCO2 Cancelled VBG pO2 Cancelled VBG HCO3 Cancelled VBG Total CO2 Cancelled VBG O2 Saturation Cancelled VBG Base Excess Cancelled VBG Lactate Sodium Potassium Chloride Carbon Dioxide Anion Gap BUN Creatinine Est GFR (CKD-EPI 2020) Glucose Calcium Phosphorus Magnesium Total Bilirubin AST ALT Alkaline Phosphatase Ammonia Creatine Kinase Troponin I Total Protein Albumin Lipase Procalcitonin TSH Urine Color Urine Clarity Urine pH Ur Specific [place] Urine Protein Urine Ketones Urine Blood Urine Nitrite Urine Bilirubin Urine Urobilinogen Ur Leukocyte Esterase Urine RBC Urine WBC Ur Epithelial Cells Urine Crystals Urine Bacteria Urine Casts Urine Mucus Ur Culture Indicated? Urine Glucose Urine Opiates Screen Urine Methadone Screen Ur Barbiturates Screen Ur Tricyclics Screen Ur Amphetamines Screen U Benzodiazepines Scrn Urine Cocaine Screen Ur THC Screen Ethyl Alcohol Review of Systems Unobtainable due to mental status Time spent with patient Time spent in Critical Care: 65 Time spent in Critical care included: Chart review, Documenting critically ill care, Time at immediate bedside and Discussing critically ill care with other medical staff Pocus Exam Limited Cardiac Exam DATE OF EXAM: 09/16/22 TIME OF EXAM: 07:30 PROVIDER THAT PERFORMED THE STUDY: Adelia Almodovar IS THIS A REPEAT EXAM DURING THIS ENCOUNTER: Yes, Different provider REASON FOR EXAM: Hypotension and Hypovolemic shock VISUALIZED STRUCTURES: four chambers, Interventricular septum and IVC VIEW OBTAINED: Apical 4-Chamber, Parasternal long-axis, Parasternal short-axis and Subxiphoid PERTINENT FINDINGS/IMPRESSION: Plethoric IVC Exam complete Limited Thoracic Lung Exam DATE OF EXAM: 09/16/22 TIME OF EXAM: 07:30 PROVIDER THAT PERFORMED THE STUDY: Adelia Almodovar IS THIS A REPEAT EXAM DURING THIS ENCOUNTER: No REASON FOR EXAM: Shortness ofBreath VISUALIZED STRUCTURES: right anterior, left anterior, right posterior and left posterior PERTINENT FINDINGS/IMPRESSION: No apparent abnormalities Exam complete Multi-Disciplinary Checklist Lines/Tubes CENTRAL LINE: yes, Central Line Day#: 0 ARTERIAL LINE: no TELLEZ: yes, ENDOTRACHEAL TUBE: no ICU Maintenance GLUCOSE 140-180mg/dL: no, Reason/Intervention: DKA on insulin drip NUTRITION AT GOAL: no, Reason/Intervention: unable to tolerate PO at this time PRESSURE ULCER: no RESTRAINTS: yes, Reviewed Necessity: Yes ANTIBIOTICS(if yes, consider Stewardship): Yes Social Issues FAMILY UPDATED: no, Reason/Intervention: defer to hospitalist PT/OT: no, Reason/Intervention: not appropriate at this time 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
[2022-09-16 06:56] LABS: Troponin I 367 ng/L (<or=60)
--- NOTE | 2022-09-16 07:00 | RT.EKG_ITS ---
APPROVED REPORT Exam: Resting ECG Reason for Exam: elevated troponin Patient Location: I HR:126 bpm ECG Measurements Heart Rate 126 AXIS AK [id number] P [id number] QRSd 90 QRS 22 QT 338 T 48 QTc 490 Conclusion Atrial fibrillation...? atrial activity RSR' in V1 or V2, probably normal variant...small R' only Borderline prolonged QT interval...QTc >475mS
[2022-09-16] MEDS: DEXTROSE 5%-0.45% SALINE 1,000 ML 150 ML IV ×3 (08:00→21:03)
--- NOTE | 2022-09-16 08:00 | DI.US_ITS ---
APPROVED REPORT EXAM: Comprehensive 2D, Doppler, and color-flow Echocardiogram Patient Location: In-Patient Room/Bed: [address] Designer: Cole Urrutia RDMS, SUMAN Indications: NSTEMI, HTN, AFIB Other Information Study Quality: Fair. Technically limited study due to inability to position patient, cardiac rhythm. Conclusion Normal left ventricular wall thickness and chamber size. Ejection fraction is 50 to 55%. No segment al wall motion abnormalities are identified Normal right ventricular size and systolic function Left atrium is mildly dilated. Right atrial size is normal Aortic valve is mildly sclerotic and trileaflet with trace regurgitation Mitral annular calcification, trace mitral regurgitation Normal tricuspid valve with mild regurgitation. Estimated right ventricular systolic pressure is 18 mmHg Wall motion Left Ventricle The left ventricle is normal size. Left ventricular systolic function is borderline. There is normal left ventricular wall thickness. No segmental wall motion abnormalities There is no ventricular septa l defect visualized. LVEF is 52%. Right Ventricle The right ventricle is normal size. Right ventricular systolic function is grossly normal. The RVSP i s 18.5 mmHg. Atria The left atrium size is mildly dilated The right atrium size is normal. Aortic Valve Aortic valve is mildly sclerotic Aortic valve is trileaflet. There is no aortic valvular stenosis. Tr corky aortic regurgitation Mitral Valve The mitral valve is normal in structure. Mild mitral annular calcification. No evidence of mitral david ve stenosis. Trace mitral regurgitation Tricuspid Valve The tricuspid valve is normal in structure. There is no tricuspid valve stenosis. Mild tricuspid regu rgitation. Pulmonic Valve The pulmonary valve is normal in structure. There is no pulmonic valvular stenosis. There is no pulmo hoda valvular regurgitation. Great Vessels The aortic root is normal in size. The ascending aorta is borderline dilated. Aortic arch is not well visualized. IVC is normal in size and collapses >50% with inspiration. Pericardium There is no pericardial effusion. 2D Dimensions IVSD d PLAX 0.51 cm M: 0.6-1.2 LV Vol A2C d MOD 102.5 mL LVPW d PLAX 0.55 cm M: 0.6 - 1.2 LV Vol A4C d MOD 102.8 mL LVID d PLAX 5.43 cm M: 4.2 - 5.8 LA vol/ BSA A4C s A-L 18.9 mL/m2 LVDs 3.45 cm M: 2.5 - 4.0 LA Area A4C s MOD 17.01 cm2 Ao Root d 3.23 cm M: 3.1 - 3.7 LV EF A4C MOD 51.8 % Ao Asc Diam d 3.49 cm M: 2.6 - 3.4 LV EF A2C MOD 51.5 % LV EF Teichholz 65.2 % LV EF Biplane MOD 50.8 % LVEF (Lin's) 50.82 % M: 52 - 72 SV 52.85 mL LV Volume 74.14 mL M: 62 - 150 SV Index 22.51 mL/m2 LV Volume Index 31.54 mL/m2 M: 34 - 74 LV Vol Biplane MOD 104.0 mL FS 36.05 % M-Mode TAPSE 1.63 cm (M/F) >1.7 LV Diastology MV E' medial 0.169 (>0.07 m/s) MV E Vmax 1.14 (0.4-1.3 m/s) LV E/e MED 6.70 (<14) MV E' lateral 0.209 (>0.1 m/s) LV E/e LAT 5.45 (<14) MV E/E' medial 6.74 MV E/E' lateral 5.48 Aortic Valve LVOT Area 3.49 cm2 AoV Area Vmax 3.06 cm2 LVOT Vmax 0.90 m/s AoV Area/ BSA (Vmax) 1.30 cm2/m2 LVOT Mean Guillermo. 0.67 m/s SHELLIE Mean Guillermo. 3.14 cm2 LVOT Peak Grad 3.2 mmHg SHELLIE Mean Guillermo. Index 1.34 cm2/m2 LVOT Mean Grad 2.0 mmHg LVOT VTI 0.128 m LVOT Diam s 2.10 cm AoV Vmax 1.03 m/s Velocity Ratio 0.87 AoV Mean Guillermo. 0.74 m/s AoV Peak Grad 4.2 mmHg LVOT SV 44.84 mL AoV Mean Grad 2.5 mmHg AoV VTI 0.146 m AoV Area VTI 3.06 cm2 AoV Area/ BSA (VTI) 1.30 cm/m2 Mitral Valve MV DT 206 (160-240 msec) MV PHT 60 msec MV Area PHT 3.67 cm2 MV VTI 0.146 m MV Area VTI 3.07 (4.0-6.0 cm2) Pulmonary Valve PV Vmax 0.84 (0.5-1.5 m/s) RVOT Peak Gr. 1.13 mmHg PV Peak Grad 2.8 mmHg RVOT Mean Gr. 0.85 mmHg PV Mean Grad 1.6 mmHg RVOT VTI 0.080 m PV VTI 0.140 m RVOT Vmax 0.53 m/s Tricuspid Valve TR Peak Grad 15.5 mmHg TR Vmax 1.97 m/s RA Pressure 3.00 mmHg RVSP (TR) 18.5 mmHg
--- NOTE | 2022-09-16 08:00 | DI.US_ITS ---
Exam(s) US ABDOMEN LIMITED EXAM: US ABDOMEN LIMITED CLINICAL HISTORY: pancreatic necrosis, pancreatitis TECHNIQUE: Ultrasound abdomen performed using standard protocol. COMPARISON: CT CT CHEST/ABD/PEL W from 09/15/2022 FINDINGS: PANCREAS: The pancreas is heterogeneous in echogenicity. There is a complex hypoechoic area seen in the body of the pancreas measuring 7.2 x 3.3 cm. This appears to represent the fluid collection seen on the CT scan from the day prior. LIVER: There is fatty infiltration of the liver. Hepatopedal flow in the Portal Vein. The liver subha ures in 16.9 cm length. GALLBLADDER: No evidence of cholelithiasis. No evidence of wall thickening. No pericholecystic fluid identified. BILIARY SYSTEM: Common bile duct measures < 7 mm. No intrahepatic biliary ductal dilation. SEVERINO'S SIGN: Negative. RIGHT KIDNEY: Kidney is normal in size. No evidence of renal calculi. No evidence of hydronephrosis. No renal mass or cyst identified. ASCITES: None seen. IMPRESSION: 1. Heterogeneous pancreas with pseudocyst consistent with the patient's diagnosis of acute pancreatit is. The heterogeneity of the pancreas raises a question of pancreatic necrosis. 2. Fatty infiltration of the liver. DATA REPOSITORY:
[2022-09-16] MEDS: MAGNESIUM SULFATE 2 GM/50 ML BAG IVPB (08:39)
--- NOTE | 2022-09-16 08:42 | PDOC.CMIN ---
Date of service: 09/16/22 Time of Service: 08:42 Care Management Initial Assmt Initial Assessment REASON FOR HOSPITALIZATION:: TULIO, DKA, Lactic acidosis PREVIOUS FUNCTIONAL STATUS/SOCIAL/FAMILY SUPPORTS:: Blayne is and lives in [place] alone. He has three children, Ly, Anam and Malik. Per chart review his Mother, Father and step mother live locally and are supportive. 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 He is independent at baseline, drives, and managed his ADL's independently prior to this hospitalization. CURRENT FUNCTIONAL STATUS:: Blayne was lying in bed when CM attempted to meet with him. He is being closely monitored and treated in the ICU, he looks comfortable and appears to be sleeping. Per primary RN his has had several family members present during this hospitalization and they have questions concerning his prognosis and goals of care. CM met with his family and reviewed case with Palliative. ADVANCE DIRECTIVES:: none on file Has patient been provided with info about the portal/API?: Yes Did the patient sign up for the portal?: No CODE STATUS:: Full Code INSURANCE COVERAGE / FINANCIAL ISSUES:: BC/BS CURRENT HOME/COMMUNITY SERVICES/EQUIPMENT:: None PRIMARY CARE PHYSICIAN:: Janessa Cantrell POTENTIAL DISCHARGE NEEDS:: Discharge plan of care, evaluation for increased community support Diabetic education, and close outpatient follow up of his DM. PATIENT/FAMILY EDUCATION NEEDS:: Review discharge instructions, limitations and plan to follow up with community providers. Discuss ask me three. TRANSPORTATION:: via private vehicle with family PLAN:: Blayne is critically ill and being closely monitored and treated in the ICU. Palliative is planning to meet with his family this afternoon to discuss goals of care. CM will continue to follow. PFSH All Active Problems (Updated 09/16/22 @ 12:52 by Yady Sargent MD) Toxic metabolic encephalopathy (Acute) Septic shock (Acute) Alcohol use disorder (Acute) Hypovolemic shock (Acute) DKA (diabetic ketoacidosis) (Acute) Normal anion gap metabolic acidosis (Acute) DVT prophylaxis (Acute) GERD without esophagitis (Acute) Neutrophilic leukocytosis (Acute) Elevated troponin I level (Acute) TULIO (acute kidney injury) (Acute) Chronic pancreatitis due to acute alcohol intoxication (Acute) High anion gap metabolic acidosis (Acute) Diabetic acidosis, type I (Acute) Constipation (Acute) Pancreatitis (Acute) Diabetes (Acute) Hypertension (Acute) Pancreatic pseudocyst (Chronic) Alcohol intake above recommended sensible limits (Chronic) Essential hypertension (Chronic 01/10/13) Hyperlipidemia (Chronic 07/15/12) Male erectile disorder (Chronic) normal testosterone Rosacea (Chronic) Tobacco dependence due to chewing tobacco (Chronic) Onychomycosis (Chronic) on fingers and toes; declines to treat due to possible medication side effects. Anxiety disorder (Chronic) Hypomagnesemia (Acute) Hypokalemia (Acute) Thrombocytopenia (Acute) Uncontrolled type 2 diabetes mellitus with hyperglycemia, with long-term current use of insulin (Chronic) Medical History (Updated 09/16/22 @ 12:52 by Yady Sargent MD) Acute pancreatitis (12/19/13) 12/20/13,11/04/17, 04/2022 Atrial fibrillation Stable. History during hospitalization in 2018, negative Zio patch for 48 hrs. Cerebellar lesion ruled out with MRI Depression a. inpatient admission Surgical History H/O arthroscopy of right knee Family History Grandfather , [place] at age 54. Myocardial infarction Father Prostate cancer Grandfather Personal history of malignant neoplasm Social History (Updated 05/30/22 @ 12:38 by Rebeca Perry) Smoking/Tobacco Use Status: Former Tobacco Use Smokeless tobacco user: chewing tobacco Counseling given: provider counseling Smoking risk assessment performed?: Yes Alcohol Intake: current Alcohol Intake frequency: 3 or more drinks per day Drug use: Never Substance use type: does not use Details: no alcohol for 12+ days due to pancreatitis Household members: none Housing: other Number of Children: 3 Education Level: high school current occupation: Currently unemployed Pets and animals: Yes Pets and animals: dog(s) Sexually active: No What is your relationship status?: How often do you get together with friends or relatives?: once per week Panel score (0-1 are the most socially isolated patients): 0 What type of physical activity do you participate in: walking Do you feel safe at home: Yes Do you feel safe in your relationship?: Yes Readmission Within the Past 30 Days Yes or No: Yes Date of First Admission Date of 1st Admission: 08/29/22 Date of this Admission Date of Admission: 09/15/22 This admission was: Through ED Office Visit Since 1st Admission Have you seen your PCP in the office since discharge?: No Had an appointment Been Scheduled?: Yes Date of Scheduled Appointment: 09/19/22 Speicalist Appointments Have you seen any other specialist since your 1st Admission?: No
[2022-09-16 08:49] LABS: BE (Venous) -21 mmol/L (-2-3); HCO3 (Venous) 8 mmol/L (23-28); O2 Sat (Venous) 95 %; TCO2 (Venous) 7 mmol/L (24-29); pCO2 (Venous) 22 mmHg (41-51); pO2 (Venous) 74 mmHg
[2022-09-16 08:52] LABS: pH (Venous) 7.16 (7.31-7.41)
[2022-09-16 09:06] LABS: Anion Gap 24.3 mmol/L (3-11); BUN 19 mg/dL (7-18); CO2 9.7 mmol/L (21.0-32.0); CREATININE 1.5 mg/dL (0.70-1.30); Calcium 8.6 mg/dL (8.5-10.1); Chloride 106 mmol/L (98-107); Estimated GFR 54.64 (mL/min/1.73m2); Glucose 226 mg/dL (74-106); Potassium 4.4 mmol/L (3.5-5.1); Sodium 140 mmol/L (136-145)
[2022-09-16] MEDS: Norepinephrine in D5W 8 MG/250 ML BAG 9.375 MG IV (09:21)
[2022-09-16] MEDS: SODIUM BICARBONATE 150 MEQ in DEXTROSE 5%-WATER 850 ML IV (09:39)
[2022-09-16] MEDS: Insulin Glargine 300 UNITS/3 ML PEN 20 UNITS SC (09:50)
[2022-09-16 11:01] LABS: Anion Gap 21.7 mmol/L (3-11); BUN 19 mg/dL (7-18); CO2 11.3 mmol/L (21.0-32.0); CREATININE 1.6 mg/dL (0.70-1.30); Calcium 8.8 mg/dL (8.5-10.1); Chloride 107 mmol/L (98-107); Estimated GFR 50.57 (mL/min/1.73m2); Glucose 225 mg/dL (74-106); Potassium 4.3 mmol/L (3.5-5.1); Sodium 140 mmol/L (136-145)
--- NOTE | 2022-09-16 11:12 | W.PM.PROGNOT ---
Date of Service Date of service: 09/16/22 Time of Service: 11:12 Assessment and Plan Assessment and plan (1) Diabetic acidosis, type I: Status: Acute Assessment and plan: Continue insulin gtt with D5 fluids now since the BGs are <250. Received 20 units of lantus this am. Continue IVF, serial labs. Trigger is likely underlying pancreatitis/psudocyst +/- infectious process. (2) Septic shock: Status: Acute Assessment and plan: Suspected intraabdominal process vs hypovolemic shock. Given suspected pancreatic necrosis, antibiotics are indicated. Continue meropenem. Await blood culture results. Trend CRP, procalcitonin. (3) High anion gap metabolic acidosis: Status: Acute Assessment and plan: In combination with non-anion gap metabolic acidosis. Continue treatment of DKA, sepsis, and is receiving bicarb therapy. Monitor serial chemistries and VBGs. (4) Elevated troponin I level: Status: Acute Assessment and plan: Suspect type 2 demand ischemia given the degree of acidosis. He is written for aspirin. Await echo. (5) Lactic acidosis: Status: Resolved Assessment and plan: as above (6) Atrial fibrillation: Assessment and plan: While he was slightly irregular, on the EKG we actually do see P waves. I do no think he is in Afib at this time; it's unclear if he was in Afib earlier. Regardless, treatment should focus on treatment of infection. Given that the patient is requiring vasopressors, I have lowered the dose of metoprolol and made it prn. Qualifiers: Atrial fibrillation type: paroxysmal Qualified Code(s): I48.0 - Paroxysmal atrial fibrillation (7) Neutrophilic leukocytosis: Status: Acute Assessment and plan: Likely reactive - could be due to DKA, pancreatitis, sepsis. Monitor as we are treating all of the above. (8) TULIO (acute kidney injury): Status: Acute Assessment and plan: Suspect prerenal etiology; however, not improving with IV hydration at this time. Will continue to monitor. (9) Uncontrolled type 2 diabetes mellitus with hyperglycemia, with long-term current use of insulin: Status: Chronic Assessment and plan: as above ?underlying depression and alcoholism that's driving noncompliance. (10) Pancreatic pseudocyst: Status: Chronic Assessment and plan: Discussed with [facility], who do not feel the patient would benefit from drainage at this time. (11) Chronic pancreatitis due to acute alcohol intoxication: Status: Acute Assessment and plan: Acute on chronic. Patient is getting aggressively hydrated IV. WIll need outpatient follow up. Given co-existence of pancreatic head necrosis, continue meropenem. (12) Hypertension: Status: Acute Assessment and plan: Patient is actually in shock at this time requiring vasopressors. Holding home antihypertensives. (13) GERD without esophagitis: Status: Acute Assessment and plan: As seen on CT. Continue protonix. (14) Toxic metabolic encephalopathy: Status: Acute Assessment and plan: Monitor mental status as DKA and infection are getting treated. The patient is not acting like alcohol withdrawal. (15) Alcohol use disorder: Status: Acute Assessment and plan: Not actively withdrawing from alcohol. Received a low dose load with phenobarbital. Monitor for w/d. Provide vitamin supplementaiton. (16) DVT prophylaxis: Status: Acute Assessment and plan: enoxaparin SC (17) Discharge planning issues: Status: Resolved Assessment and plan: Keep in the ICU. Total Critical Care Time [address] Almodovar. Subjective Subjective Interval history since last seen: Mr Guillermo is arousable, but does not answer questions or follow commands. He is still on insulin gtt, and his norepinephrine weaning attempt this morning was unsuccessful - he ended up being resumed on it. He has not shown any signs of alcohol withdrawal. He has not had any fevers. The patient does not have a designated DPOA. His mother father, ex-, and other family members in the waiting room do not know what his goals of care would be. They are not sure that he would want to have any interventions done at all, such as any GI recommended procedure. The case was discussed with [facility] who do not feel that the pseudocyst is the case of his septic shock. Pseudocysts are not usually drained during acute presentation of pancreatitis, which is what this is believed to be. Pseudocysts are usually drained in 4-6 weeks. Exam Narrative Exam Narrative: General: Middle-aged male who is arousable, but not following commands, not answering questions, Kussmaul's breathing HEENT: EOMI, dry MM Heart: RRR, tachycardic, no m/r/g Lungs: Diminished breath sounds at B bases; upper air way resonant breath sounds Abdomen: soft, tender in epigastrium (the patient moans and grimaces), nondistended Extremities: no edema BLEs, B feet with venous stasis, DPs not palpable. Objective Last Vital Signs Temp 36.9 C 09/16/22 08:35 Pulse 132 H 09/16/22 09:46 Resp 18 09/16/22 09:46 BP 100/67 09/16/22 09:46 Pulse Ox 99 09/16/22 09:46 Laboratory Results - last 24 hr 09/15/22 09/15/22 09/15/22 17:21 17:21 17:21 WBC 21.33 H RBC 4.17 L Hgb 14.4 Hct 46.5 MCV 112 H MCH 34.5 H MCHC 31.0 L RDW 12.6 Plt Count 375 MPV 10.7 Immature Gran % 0.0 Neutrophils % 60.0 Band Neutrophils % 7 Lymphocytes % 16.0 Monocytes % 16.0 Eosinophils % 0.0 Basophils % 0.0 Myelocytes % 1 Nucleated RBC % 0.0 Absolute Neutrophils 14.29 H Absolute Lymphocytes 3.41 H Absolute Monocytes 3.41 H Absolute Eosinophils 0.00 Absolute Basophils 0.00 RBC Morphology See Below Macrocytosis 2+ PT INR VBG pH VBG pCO2 VBG pO2 VBG HCO3 VBG Total CO2 VBG O2 Saturation VBG Base Excess VBG Lactate Sodium 133 L Potassium 5.5 H Chloride 94 L Carbon Dioxide < 5.0 L* Anion Gap 34.78364 H BUN 19 H Creatinine 1.8 H Est GFR (CKD-EPI 2020) 43.90 Glucose 492 H Calcium 10.8 H Phosphorus Magnesium 2.1 Total Bilirubin 0.8 Conjugated Bilirubin AST 70 H ALT 28 Alkaline Phosphatase 314 H Ammonia 77 H Creatine Kinase Troponin I 101 H* Total Protein 8.7 H Albumin 3.2 L Triglycerides Total Cholesterol LDL Cholesterol, Calc HDL Cholesterol Lipase 32 Procalcitonin TSH 1.34 Urine Color Urine Clarity Urine pH Ur Specific [place] Urine Protein Urine Ketones Urine Blood Urine Nitrite Urine Bilirubin Urine Urobilinogen Ur Leukocyte Esterase Urine RBC Urine WBC Ur Epithelial Cells Urine Crystals Urine Bacteria Urine Casts Urine Mucus Ur Culture Indicated? Urine Glucose Urine Opiates Screen Urine Methadone Screen Ur Barbiturates Screen Ur Tricyclics Screen Ur Amphetamines Screen U Benzodiazepines Scrn Urine Cocaine Screen Ur THC Screen Ethyl Alcohol < 3.0 09/15/22 09/15/22 09/15/22 17:34 17:34 18:00 WBC RBC Hgb Hct MCV MCH MCHC RDW Plt Count MPV Immature Gran % Neutrophils % Band Neutrophils % Lymphocytes % Monocytes % Eosinophils % Basophils % Myelocytes % Nucleated RBC % Absolute Neutrophils Absolute Lymphocytes Absolute Monocytes Absolute Eosinophils Absolute Basophils RBC Morphology Macrocytosis PT INR VBG pH VBG pCO2 VBG pO2 VBG HCO3 VBG Total CO2 VBG O2 Saturation VBG Base Excess VBG Lactate 3.3 H* Sodium Potassium Chloride Carbon Dioxide Anion Gap BUN Creatinine Est GFR (CKD-EPI 2020) Glucose Calcium Phosphorus Magnesium Total Bilirubin Conjugated Bilirubin AST ALT Alkaline Phosphatase Ammonia Creatine Kinase Troponin I Total Protein Albumin Triglycerides Total Cholesterol LDL Cholesterol, Calc HDL Cholesterol Lipase Procalcitonin TSH Urine Color Yellow Urine Clarity Clear Urine pH 5.0 Ur Specific [place] 1.020 Urine Protein 100 H Urine Ketones >=160 H Urine Blood Small H Urine Nitrite Negative Urine Bilirubin Small H Urine Urobilinogen 0.2 Ur Leukocyte Esterase Negative Urine RBC 0-2 Urine WBC 0-2 Ur Epithelial Cells Rare Urine Crystals Negative Urine Bacteria Few Urine Casts 0-2 Fine Granular Urine Mucus Trace Ur Culture Indicated? No Urine Glucose 500 H Urine Opiates Screen Negative Urine Methadone Screen Negative Ur Barbiturates Screen Negative Ur Tricyclics Screen Negative Ur Amphetamines Screen Negative U Benzodiazepines Scrn Negative Urine Cocaine Screen Negative Ur THC Screen Negative Ethyl Alcohol 09/15/22 09/15/22 09/15/22 18:00 18:00 20:43 WBC RBC Hgb Hct MCV MCH MCHC RDW Plt Count MPV Immature Gran % Neutrophils % Band Neutrophils % Lymphocytes % Monocytes % Eosinophils % Basophils % Myelocytes % Nucleated RBC % Absolute Neutrophils Absolute Lymphocytes Absolute Monocytes Absolute Eosinophils Absolute Basophils RBC Morphology Macrocytosis PT INR VBG pH VBG pCO2 VBG pO2 VBG HCO3 VBG Total CO2 VBG O2 Saturation VBG Base Excess VBG Lactate Sodium 137 Potassium 4.2 D Chloride 101 Carbon Dioxide < 5.0 L* Anion Gap 31.72248 H BUN 16 Creatinine 1.5 H Est GFR (CKD-EPI 2020) 54.64 Glucose 418 H Calcium 8.6 Phosphorus 7.1 H Magnesium Total Bilirubin Conjugated Bilirubin AST ALT Alkaline Phosphatase Ammonia Creatine Kinase Troponin I 281 H* Total Protein Albumin Triglycerides Total Cholesterol LDL Cholesterol, Calc HDL Cholesterol Lipase Procalcitonin TSH Urine Color Urine Clarity Urine pH Ur Specific [place] Urine Protein Urine Ketones Urine Blood Urine Nitrite Urine Bilirubin Urine Urobilinogen Ur Leukocyte Esterase Urine RBC Urine WBC Ur Epithelial Cells Urine Crystals Urine Bacteria Urine Casts Urine Mucus Ur Culture Indicated? Urine Glucose Urine Opiates Screen Urine Methadone Screen Ur Barbiturates Screen Ur Tricyclics Screen Ur Amphetamines Screen U Benzodiazepines Scrn Urine Cocaine Screen Ur THC Screen Ethyl Alcohol 09/15/22 09/15/22 09/15/22 20:43 22:15 22:15 WBC RBC Hgb Hct MCV MCH MCHC RDW Plt Count MPV Immature Gran % Neutrophils % Band Neutrophils % Lymphocytes % Monocytes % Eosinophils % Basophils % Myelocytes % Nucleated RBC % Absolute Neutrophils Absolute Lymphocytes Absolute Monocytes Absolute Eosinophils Absolute Basophils RBC Morphology Macrocytosis PT INR VBG pH VBG pCO2 VBG pO2 VBG HCO3 VBG Total CO2 VBG O2 Saturation VBG Base Excess VBG Lactate Sodium 136 136 Potassium 5.0 5.0 Chloride 96 L 97 L Carbon Dioxide 6.9 L 5.6 L Anion Gap 33.1 H 33.4 H BUN 18 20 H Creatinine 1.7 H 1.8 H Est GFR (CKD-EPI 2020) 47.02 43.90 Glucose 460 H 450 H Calcium 9.9 10.4 H Phosphorus Magnesium Total Bilirubin Conjugated Bilirubin AST ALT Alkaline Phosphatase Ammonia Creatine Kinase Troponin I 314 H* Total Protein Albumin Triglycerides Total Cholesterol LDL Cholesterol, Calc HDL Cholesterol Lipase Procalcitonin TSH Urine Color Urine Clarity Urine pH Ur Specific [place] Urine Protein Urine Ketones Urine Blood Urine Nitrite Urine Bilirubin Urine Urobilinogen Ur Leukocyte Esterase Urine RBC Urine WBC Ur Epithelial Cells Urine Crystals Urine Bacteria Urine Casts Urine Mucus Ur Culture Indicated? Urine Glucose Urine Opiates Screen Urine Methadone Screen Ur Barbiturates Screen Ur Tricyclics Screen Ur Amphetamines Screen U Benzodiazepines Scrn Urine Cocaine Screen Ur THC Screen Ethyl Alcohol 09/15/22 09/15/22 09/15/22 22:15 22:15 22:35 WBC RBC Hgb Hct MCV MCH MCHC RDW Plt Count MPV Immature Gran % Neutrophils % Band Neutrophils % Lymphocytes % Monocytes % Eosinophils % Basophils % Myelocytes % Nucleated RBC % Absolute Neutrophils Absolute Lymphocytes Absolute Monocytes Absolute Eosinophils Absolute Basophils RBC Morphology Macrocytosis PT 11.5 H INR 1.1 VBG pH 6.83 L* VBG pCO2 26 L VBG pO2 46 VBG HCO3 4 L VBG Total CO2 5 L VBG O2 Saturation 70 VBG Base Excess -30 L VBG Lactate 2.4 H* Sodium Potassium Chloride Carbon Dioxide Anion Gap BUN Creatinine Est GFR (CKD-EPI 2020) Glucose Calcium Phosphorus Magnesium Total Bilirubin Conjugated Bilirubin AST ALT Alkaline Phosphatase Ammonia Creatine Kinase Troponin I Total Protein Albumin Triglycerides Total Cholesterol LDL Cholesterol, Calc HDL Cholesterol Lipase Procalcitonin TSH Urine Color Urine Clarity Urine pH Ur Specific [place] Urine Protein Urine Ketones Urine Blood Urine Nitrite Urine Bilirubin Urine Urobilinogen Ur Leukocyte Esterase Urine RBC Urine WBC Ur Epithelial Cells Urine Crystals Urine Bacteria Urine Casts Urine Mucus Ur Culture Indicated? Urine Glucose Urine Opiates Screen Urine Methadone Screen Ur Barbiturates Screen Ur Tricyclics Screen Ur Amphetamines Screen U Benzodiazepines Scrn Urine Cocaine Screen Ur THC Screen Ethyl Alcohol 09/16/22 09/16/22 09/16/22 00:50 00:50 00:50 WBC RBC Hgb Hct MCV MCH MCHC RDW Plt Count MPV Immature Gran % Neutrophils % Band Neutrophils % Lymphocytes % Monocytes % Eosinophils % Basophils % Myelocytes % Nucleated RBC % Absolute Neutrophils Absolute Lymphocytes Absolute Monocytes Absolute Eosinophils Absolute Basophils RBC Morphology Macrocytosis PT INR VBG pH 6.92 L* VBG pCO2 27 L VBG pO2 34 VBG HCO3 6 L VBG Total CO2 6 L VBG O2 Saturation 59 VBG Base Excess -27 L VBG Lactate 2.3 H* Sodium Potassium Chloride Carbon Dioxide Anion Gap BUN Creatinine Est GFR (CKD-EPI 2020) Glucose Calcium Phosphorus Magnesium Total Bilirubin Conjugated Bilirubin AST ALT Alkaline Phosphatase Ammonia Creatine Kinase Troponin I 396 H* Total Protein Albumin Triglycerides Total Cholesterol LDL Cholesterol, Calc HDL Cholesterol Lipase Procalcitonin TSH Urine Color Urine Clarity Urine pH Ur Specific [place] Urine Protein Urine Ketones Urine Blood Urine Nitrite Urine Bilirubin Urine Urobilinogen Ur Leukocyte Esterase Urine RBC Urine WBC Ur Epithelial Cells Urine Crystals Urine Bacteria Urine Casts Urine Mucus Ur Culture Indicated? Urine Glucose Urine Opiates Screen Urine Methadone Screen Ur Barbiturates Screen Ur Tricyclics Screen Ur Amphetamines Screen U Benzodiazepines Scrn Urine Cocaine Screen Ur THC Screen Ethyl Alcohol 09/16/22 09/16/22 09/16/22 00:50 00:50 02:15 WBC RBC Hgb Hct MCV MCH MCHC RDW Plt Count MPV Immature Gran % Neutrophils % Band Neutrophils % Lymphocytes % Monocytes % Eosinophils % Basophils % Myelocytes % Nucleated RBC % Absolute Neutrophils Absolute Lymphocytes Absolute Monocytes Absolute Eosinophils Absolute Basophils RBC Morphology Macrocytosis PT INR VBG pH VBG pCO2 VBG pO2 VBG HCO3 VBG Total CO2 VBG O2 Saturation VBG Base Excess VBG Lactate Sodium 138 139 Potassium 5.0 5.1 Chloride 99 100 Carbon Dioxide 7.8 L 7.2 L Anion Gap 31.2 H 31.8 H BUN 20 H 19 H Creatinine 1.7 H 1.6 H Est GFR (CKD-EPI 2020) 47.02 50.57 Glucose 379 H 357 H Calcium 10.2 H 10.4 H Phosphorus Magnesium Total Bilirubin Conjugated Bilirubin AST ALT Alkaline Phosphatase Ammonia Creatine Kinase 158 Troponin I Total Protein Albumin Triglycerides Total Cholesterol LDL Cholesterol, Calc HDL Cholesterol Lipase Procalcitonin 0.6 TSH Urine Color Urine Clarity Urine pH Ur Specific [place] Urine Protein Urine Ketones Urine Blood Urine Nitrite Urine Bilirubin Urine Urobilinogen Ur Leukocyte Esterase Urine RBC Urine WBC Ur Epithelial Cells Urine Crystals Urine Bacteria Urine Casts Urine Mucus Ur Culture Indicated? Urine Glucose Urine Opiates Screen Urine Methadone Screen Ur Barbiturates Screen Ur Tricyclics Screen Ur Amphetamines Screen U Benzodiazepines Scrn Urine Cocaine Screen Ur THC Screen Ethyl Alcohol 09/16/22 09/16/22 09/16/22 04:25 05:22 06:10 WBC RBC Hgb Hct MCV MCH MCHC RDW Plt Count MPV Immature Gran % Neutrophils % Band Neutrophils % Lymphocytes % Monocytes % Eosinophils % Basophils % Myelocytes % Nucleated RBC % Absolute Neutrophils Absolute Lymphocytes Absolute Monocytes Absolute Eosinophils Absolute Basophils RBC Morphology Macrocytosis PT INR VBG pH 7.11 L* VBG pCO2 21 L VBG pO2 47 VBG HCO3 7 L VBG Total CO2 6 L VBG O2 Saturation 83 VBG Base Excess -23 L VBG Lactate Sodium 141 141 Potassium 4.8 4.8 Chloride 104 105 Carbon Dioxide 8.2 L 9.3 L Anion Gap 28.8 H 26.7 H BUN 20 H 20 H Creatinine 1.6 H 1.5 H Est GFR (CKD-EPI 2020) 50.57 54.64 Glucose 255 H 210 H Calcium 8.9 8.9 Phosphorus Magnesium Total Bilirubin 0.8 Conjugated Bilirubin AST 71 H ALT 32 Alkaline Phosphatase 257 H Ammonia Creatine Kinase Troponin I 367 H* Total Protein 7.5 Albumin 2.8 L Triglycerides 117 Total Cholesterol 162 LDL Cholesterol, Calc 87 HDL Cholesterol 52 Lipase Procalcitonin TSH Urine Color Urine Clarity Urine pH Ur Specific [place] Urine Protein Urine Ketones Urine Blood Urine Nitrite Urine Bilirubin Urine Urobilinogen Ur Leukocyte Esterase Urine RBC Urine WBC Ur Epithelial Cells Urine Crystals Urine Bacteria Urine Casts Urine Mucus Ur Culture Indicated? Urine Glucose Urine Opiates Screen Urine Methadone Screen Ur Barbiturates Screen Ur Tricyclics Screen Ur Amphetamines Screen U Benzodiazepines Scrn Urine Cocaine Screen Ur THC Screen Ethyl Alcohol 09/16/22 09/16/22 09/16/22 06:10 06:10 06:10 WBC 18.71 H RBC 3.95 L Hgb 13.7 Hct 41.3 MCV 105 H D MCH 34.7 H MCHC 33.2 D RDW 12.7 Plt Count 308 MPV 10.4 Immature Gran % 1.6 Neutrophils % 77.5 Band Neutrophils % Lymphocytes % 11.7 Monocytes % 8.9 Eosinophils % 0.0 Basophils % 0.3 Myelocytes % Nucleated RBC % 0.0 Absolute Neutrophils 14.50 H Absolute Lymphocytes 2.19 Absolute Monocytes 1.67 H Absolute Eosinophils 0.00 Absolute Basophils 0.06 RBC Morphology Macrocytosis PT INR VBG pH VBG pCO2 VBG pO2 VBG HCO3 VBG Total CO2 VBG O2 Saturation VBG Base Excess VBG Lactate Sodium Potassium Chloride Carbon Dioxide Anion Gap BUN Creatinine Est GFR (CKD-EPI 2020) Glucose Calcium Phosphorus Magnesium 1.7 L Total Bilirubin Conjugated Bilirubin AST ALT Alkaline Phosphatase Ammonia 18 Creatine Kinase Troponin I Total Protein Albumin Triglycerides Total Cholesterol LDL Cholesterol, Calc HDL Cholesterol Lipase Procalcitonin TSH Urine Color Urine Clarity Urine pH Ur Specific [place] Urine Protein Urine Ketones Urine Blood Urine Nitrite Urine Bilirubin Urine Urobilinogen Ur Leukocyte Esterase Urine RBC Urine WBC Ur Epithelial Cells Urine Crystals Urine Bacteria Urine Casts Urine Mucus Ur Culture Indicated? Urine Glucose Urine Opiates Screen Urine Methadone Screen Ur Barbiturates Screen Ur Tricyclics Screen Ur Amphetamines Screen U Benzodiazepines Scrn Urine Cocaine Screen Ur THC Screen Ethyl Alcohol 09/16/22 09/16/22 09/16/22 06:10 06:10 06:15 WBC RBC Hgb Hct MCV MCH MCHC RDW Plt Count MPV Immature Gran % Neutrophils % Band Neutrophils % Lymphocytes % Monocytes % Eosinophils % Basophils % Myelocytes % Nucleated RBC % Absolute Neutrophils Absolute Lymphocytes Absolute Monocytes Absolute Eosinophils Absolute Basophils RBC Morphology Macrocytosis PT INR VBG pH VBG pCO2 VBG pO2 VBG HCO3 VBG Total CO2 VBG O2 Saturation VBG Base Excess VBG Lactate 1.0 Sodium Cancelled Potassium Cancelled Chloride Cancelled Carbon Dioxide Cancelled Anion Gap Cancelled BUN Cancelled Creatinine Cancelled Est GFR (CKD-EPI 2020) Cancelled Glucose Cancelled Calcium Cancelled Phosphorus 2.8 Magnesium Total Bilirubin 0.9 Conjugated Bilirubin 0.4 H AST 70 H ALT 32 Alkaline Phosphatase 257 H Ammonia Creatine Kinase Troponin I Total Protein 7.5 Albumin 2.8 L Triglycerides Total Cholesterol LDL Cholesterol, Calc HDL Cholesterol Lipase Procalcitonin TSH Urine Color Urine Clarity Urine pH Ur Specific [place] Urine Protein Urine Ketones Urine Blood Urine Nitrite Urine Bilirubin Urine Urobilinogen Ur Leukocyte Esterase Urine RBC Urine WBC Ur Epithelial Cells Urine Crystals Urine Bacteria Urine Casts Urine Mucus Ur Culture Indicated? Urine Glucose Urine Opiates Screen Urine Methadone Screen Ur Barbiturates Screen Ur Tricyclics Screen Ur Amphetamines Screen U Benzodiazepines Scrn Urine Cocaine Screen Ur THC Screen Ethyl Alcohol 09/16/22 09/16/22 09/16/22 08:35 08:35 10:30 WBC RBC Hgb Hct MCV MCH MCHC RDW Plt Count MPV Immature Gran % Neutrophils % Band Neutrophils % Lymphocytes % Monocytes % Eosinophils % Basophils % Myelocytes % Nucleated RBC % Absolute Neutrophils Absolute Lymphocytes Absolute Monocytes Absolute Eosinophils Absolute Basophils RBC Morphology Macrocytosis PT INR VBG pH 7.16 L* VBG pCO2 22 L VBG pO2 74 VBG HCO3 8 L VBG Total CO2 7 L VBG O2 Saturation 95 VBG Base Excess -21 L VBG Lactate Sodium 140 140 Potassium 4.4 4.3 Chloride 106 107 Carbon Dioxide 9.7 L 11.3 L Anion Gap 24.3 H 21.7 H BUN 19 H 19 H Creatinine 1.5 H 1.6 H Est GFR (CKD-EPI 2020) 54.64 50.57 Glucose 226 H 225 H Calcium 8.6 8.8 Phosphorus Magnesium Total Bilirubin Conjugated Bilirubin AST ALT Alkaline Phosphatase Ammonia Creatine Kinase Troponin I Total Protein Albumin Triglycerides Total Cholesterol LDL Cholesterol, Calc HDL Cholesterol Lipase Procalcitonin TSH Urine Color Urine Clarity Urine pH Ur Specific [place] Urine Protein Urine Ketones Urine Blood Urine Nitrite Urine Bilirubin Urine Urobilinogen Ur Leukocyte Esterase Urine RBC Urine WBC Ur Epithelial Cells Urine Crystals Urine Bacteria Urine Casts Urine Mucus Ur Culture Indicated? Urine Glucose Urine Opiates Screen Urine Methadone Screen Ur Barbiturates Screen Ur Tricyclics Screen Ur Amphetamines Screen U Benzodiazepines Scrn Urine Cocaine Screen Ur THC Screen Ethyl Alcohol 09/16/22 09/16/22 09/16/22 12:15 14:00 14:15 WBC RBC Hgb Hct MCV MCH MCHC RDW Plt Count MPV Immature Gran % Neutrophils % Band Neutrophils % Lymphocytes % Monocytes % Eosinophils % Basophils % Myelocytes % Nucleated RBC % Absolute Neutrophils Absolute Lymphocytes Absolute Monocytes Absolute Eosinophils Absolute Basophils RBC Morphology Macrocytosis PT INR VBG pH Cancelled VBG pCO2 Cancelled VBG pO2 Cancelled VBG HCO3 Cancelled VBG Total CO2 Cancelled VBG O2 Saturation Cancelled VBG Base Excess Cancelled VBG Lactate Sodium Cancelled Cancelled Potassium Cancelled Cancelled Chloride Cancelled Cancelled Carbon Dioxide Cancelled Cancelled Anion Gap Cancelled Cancelled BUN Cancelled Cancelled Creatinine Cancelled Cancelled Est GFR (CKD-EPI 2020) Cancelled Cancelled Glucose Cancelled Cancelled Calcium Cancelled Cancelled Phosphorus Magnesium Total Bilirubin Conjugated Bilirubin AST ALT Alkaline Phosphatase Ammonia Creatine Kinase Troponin I Total Protein Albumin Triglycerides Total Cholesterol LDL Cholesterol, Calc HDL Cholesterol Lipase Procalcitonin TSH Urine Color Urine Clarity Urine pH Ur Specific [place] Urine Protein Urine Ketones Urine Blood Urine Nitrite Urine Bilirubin Urine Urobilinogen Ur Leukocyte Esterase Urine RBC Urine WBC Ur Epithelial Cells Urine Crystals Urine Bacteria Urine Casts Urine Mucus Ur Culture Indicated? Urine Glucose Urine Opiates Screen Urine Methadone Screen Ur Barbiturates Screen Ur Tricyclics Screen Ur Amphetamines Screen U Benzodiazepines Scrn Urine Cocaine Screen Ur THC Screen Ethyl Alcohol 09/16/22 09/16/22 09/16/22 16:15 18:15 20:15 WBC RBC Hgb Hct MCV MCH MCHC RDW Plt Count MPV Immature Gran % Neutrophils % Band Neutrophils % Lymphocytes % Monocytes % Eosinophils % Basophils % Myelocytes % Nucleated RBC % Absolute Neutrophils Absolute Lymphocytes Absolute Monocytes Absolute Eosinophils Absolute Basophils RBC Morphology Macrocytosis PT INR VBG pH VBG pCO2 VBG pO2 VBG HCO3 VBG Total CO2 VBG O2 Saturation VBG Base Excess VBG Lactate Sodium Cancelled Cancelled Cancelled Potassium Cancelled Cancelled Cancelled Chloride Cancelled Cancelled Cancelled Carbon Dioxide Cancelled Cancelled Cancelled Anion Gap Cancelled Cancelled Cancelled BUN Cancelled Cancelled Cancelled Creatinine Cancelled Cancelled Cancelled Est GFR (CKD-EPI 2020) Cancelled Cancelled Cancelled Glucose Cancelled Cancelled Cancelled Calcium Cancelled Cancelled Cancelled Phosphorus Magnesium Total Bilirubin Conjugated Bilirubin AST ALT Alkaline Phosphatase Ammonia Creatine Kinase Troponin I Total Protein Albumin Triglycerides Total Cholesterol LDL Cholesterol, Calc HDL Cholesterol Lipase Procalcitonin TSH Urine Color Urine Clarity Urine pH Ur Specific [place] Urine Protein Urine Ketones Urine Blood Urine Nitrite Urine Bilirubin Urine Urobilinogen Ur Leukocyte Esterase Urine RBC Urine WBC Ur Epithelial Cells Urine Crystals Urine Bacteria Urine Casts Urine Mucus Ur Culture Indicated? Urine Glucose Urine Opiates Screen Urine Methadone Screen Ur Barbiturates Screen Ur Tricyclics Screen Ur Amphetamines Screen U Benzodiazepines Scrn Urine Cocaine Screen Ur THC Screen Ethyl Alcohol 09/16/22 22:15 WBC RBC Hgb Hct MCV MCH MCHC RDW Plt Count MPV Immature Gran % Neutrophils % Band Neutrophils % Lymphocytes % Monocytes % Eosinophils % Basophils % Myelocytes % Nucleated RBC % Absolute Neutrophils Absolute Lymphocytes Absolute Monocytes Absolute Eosinophils Absolute Basophils RBC Morphology Macrocytosis PT INR VBG pH VBG pCO2 VBG pO2 VBG HCO3 VBG Total CO2 VBG O2 Saturation VBG Base Excess VBG Lactate Sodium Cancelled Potassium Cancelled Chloride Cancelled Carbon Dioxide Cancelled Anion Gap Cancelled BUN Cancelled Creatinine Cancelled Est GFR (CKD-EPI 2020) Cancelled Glucose Cancelled Calcium Cancelled Phosphorus Magnesium Total Bilirubin Conjugated Bilirubin AST ALT Alkaline Phosphatase Ammonia Creatine Kinase Troponin I Total Protein Albumin Triglycerides Total Cholesterol LDL Cholesterol, Calc HDL Cholesterol Lipase Procalcitonin TSH Urine Color Urine Clarity Urine pH Ur Specific [place] Urine Protein Urine Ketones Urine Blood Urine Nitrite Urine Bilirubin Urine Urobilinogen Ur Leukocyte Esterase Urine RBC Urine WBC Ur Epithelial Cells Urine Crystals Urine Bacteria Urine Casts Urine Mucus Ur Culture Indicated? Urine Glucose Urine Opiates Screen Urine Methadone Screen Ur Barbiturates Screen Ur Tricyclics Screen Ur Amphetamines Screen U Benzodiazepines Scrn Urine Cocaine Screen Ur THC Screen Ethyl Alcohol Objective Narrative Objective Narrative: US abdomen: read pending Multi-Disciplinary Checklist Lines/Tubes CENTRAL LINE: yes, Central Line Day#: 1 ARTERIAL LINE: no TELLEZ: yes, Tellez Day#: 1 ENDOTRACHEAL TUBE: no ICU Maintenance GLUCOSE 140-180mg/dL: no, Reason/Intervention: in DKA, on insulin gtt NUTRITION AT GOAL: no, Reason/Intervention: mental status is interfering with PO intake PRESSURE ULCER: no RESTRAINTS: no ANTIBIOTICS(if yes, consider Stewardship): Yes Social Issues FAMILY UPDATED: yes PT/OT: no, Reason/Intervention: Not yet clinically appropriate GOALS/DISPOSITION/PRODUCTION MACHINE OPERATOR: no, Reason/Intervention: The family is not sure about the patient's wishes. Palliative care is consulted. Previously always full code. CODE STATUS: Full (Patient/family are unsure about code status. Palliative care is consulted. Previously has always been full code.) Prophylaxis DVT PROPHYLAXIS: yes GI PROPHYLAXIS: yes, Indication: on therapeutic protonix due to evidence of reflux on CT. Time Spent with Patient Time Spent with Patient: >50 minutes Time was spent: preparing to see the patient(eg.review tests), obtaining and/or reviewing separately otained hiistory, ordering medications,tests, procedures, referring, communicating with other health nurse wound care, indepentently interpreting results, counseling the patient and care coordination
--- NOTE | 2022-09-16 13:48 | PHA.REVIEW2 ---
Pharmacy Admission Review - Admission Clinical Review (Last Updated 05/28/22 @ 15:50 by Janessa Cantrell MD) Toxic metabolic encephalopathy (Acute) Septic shock (Acute) Alcohol use disorder (Acute) Hypovolemic shock (Acute) DKA (diabetic ketoacidosis) (Acute) Normal anion gap metabolic acidosis (Acute) DVT prophylaxis (Acute) GERD without esophagitis (Acute) Neutrophilic leukocytosis (Acute) Elevated troponin I level (Acute) TULIO (acute kidney injury) (Acute) Chronic pancreatitis due to acute alcohol intoxication (Acute) High anion gap metabolic acidosis (Acute) Diabetic acidosis, type I (Acute) Hypertension (Acute) Hypomagnesemia (Acute) morphine Adverse Reaction (Intermediate, Verified 08/29/22 16:44) Narcotic induced constipation Resuscitation Status Full Code Height 6 ft 2 in Weight 87.5 kg - Renal Dosing Renal Dosing: BUN Cancelled 09/16/22 22:15 Creatinine Cancelled 09/16/22 22:15 Medications needing adjustments: Reviewed List of meds needing interventions: eCrCl 64 ml/min - Anticoagulation Anticoagulation: Hgb 13.7 g/dL (13.5-17.5) 09/16/22 06:10 Hct 41.3 % (40.0-50.0) 09/16/22 06:10 Plt Count 308 10^3/uL (130-400) 09/16/22 06:10 INR 1.1 (0.9-1.1) 09/15/22 22:35 Creatinine Cancelled 09/16/22 22:15 DVT Prophylaxis: Reviewed Medications: Enoxaparin - Opiate Usage Evaluate Pain Scale/Pains Meds: N/A - Relevant Labs Sodium Cancelled 09/16/22 22:15 Potassium Cancelled 09/16/22 22:15 Chloride Cancelled 09/16/22 22:15 Phosphorus 2.8 mg/dL (2.6-4.7) 09/16/22 06:10 Magnesium 1.7 mg/dL (1.8-2.4) L 09/16/22 06:10 Electrolytes, C-Reactive P, ESR: Reviewed - DM Control DM Control: Glucose Cancelled 09/16/22 22:15 Finger Stick Blood Glucose 176 Finger Stick Blood Glucose 176 Finger Stick Blood Glucose 197 Finger Stick Blood Glucose 197 Finger Stick Blood Glucose 201 Finger Stick Blood Glucose 201 Finger Stick Blood Glucose 213 Finger Stick Blood Glucose 213 Finger Stick Blood Glucose 202 Finger Stick Blood Glucose 202 Finger Stick Blood Glucose 202 Finger Stick Blood Glucose 202 Finger Stick Blood Glucose 202 Finger Stick Blood Glucose 202 Finger Stick Blood Glucose 202 DM Control: Reviewed (insulin gtt continues @ 6 units/hr, basal dose ordered and given this AM) - Cardiac Review Cardiac Review: Troponin I 367 ng/L (<or=60) H* 09/16/22 06:10 BP, HR, EF%: Reviewed (currently requiring BP support with norepi gtt currently @ 3 mcg/min) - Qtc Review QTc: Reviewed If Elevated, List meds needing intervention: QTc 542 on admission -- avoid any qt longing therapies - IV to PO Switch IV Medications: Reviewed - Home Meds Home Med List reviewed: Reviewed Relevent Home Meds Not ordered & why?: all ordered except jardiance Medication adherence barriers identified?: Per PCP notes may not have the best understanding of diabetes/insulin therapy but working with Dk agricultural extension educator @ ; could benefit from more education, reinforcement prior to discharge and/or follow-up with Dk - Current meds Current Medication Order Review: Reviewed (meropenem 1gm q8h is providing empiric coverage for suspected pancreatic necrosis; insulin gtt and sodium bicarb gtt (1 bag total, will add stop time) continue)
[2022-09-16 14:02] LABS: BE (Venous) -10 mmol/L (-2-3); HCO3 (Venous) 16 mmol/L (23-28); O2 Sat (Venous) 85 %; TCO2 (Venous) 14 mmol/L (24-29); pCO2 (Venous) 29 mmHg (41-51); pH (Venous) 7.34 (7.31-7.41); pO2 (Venous) 42 mmHg
[2022-09-16 16:07] LABS: BE (Venous) -8 mmol/L (-2-3); HCO3 (Venous) 18 mmol/L (23-28); O2 Sat (Venous) 50 %; TCO2 (Venous) 17 mmol/L (24-29); pCO2 (Venous) 33 mmHg (41-51); pH (Venous) 7.34 (7.31-7.41); pO2 (Venous) 22 mmHg
--- NOTE | 2022-09-16 16:14 | PCNE_ITS ---
Date of service: 09/16/22 Time of Service: 16:00 History of Present Illness Narrative: Mr. Mccarthy is a 56-year-old male from [place], [place] who was admitted yesterday with DKA, acute kidney injury, hypotension, change in mental status from probable sepsis (source unclear, possibly infected pancreatic pseudocyst?). His medical history includes intractable alcoholism, insulin-dependent diabetes mellitus , chronic pancreatitis with pseudocyst, hypertension, paroxysmal atrial fibrillation not on anticoagulation, GERD. He had a previous admission for pancreatitis about 2 weeks prior to this admission. He is currently in the intensive care unit, receiving pressors, IV hydration and antibiotics. He has been stuporous since admission and unable to engage in any conversation. Hospitalist has requested palliative care consult to help identify goals of care and identify who will function as medical surrogate. I examined and met with patient today, who remains stuporous through most of the visit. I then had family meeting with daughter Ly, her boyfriend, patient's ex-, with 2 sons and patient's mother present for part of the meeting via phone. Additional information from old chart, case management. Alcoholism: Family shares that this is of been a lifelong problem. He has been to multiple treatment (inpatient, outpatient, AA, individual therapy, medication assisted treatment). The longest he maintained sobriety was 9 months after he lost his license and was ordered by court to attend AA. However over the last several years he has not been willing to engage in any alcohol treatment. Family is hoping that after this severe illness, he will understand the effect of his alcoholism and decide to stop drinking. Chronic pancreatitis/pancreatic pseudocyst: Family describes episodes of acute pancreatitis once or twice a year for the last several years. Pseudocyst is more recent. If patient survives this episode, plan is for him to follow-up with [facility] in 4 to 6 weeks for consultation regarding future options Diabetes: Family estimates that he developed diabetes about 4 years ago. He has had significant weight loss down from maximum weight of over 300 pounds over the last several years. He often does not take his medications. They believe this is his first episode of DKA. A1c was 9% at the time of admission. Reviewing PCP note from April, he had been coming to meetings with chemical educator in the office. Depression: Family feels he has ongoing severe depression. He refuses to take any medication for this or engage in therapy. Care Team: Primary Care physician: Dr. Cantrell Social HX: Lives in [place]. Ly is planning to move into this house with her boyfriend in the next few months. Daughter Ly, Sons Malik and Anam. Ex- is involved with supporting children who help their father. He currently has no partner. 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 Ex- describes that he has done nothing in the last 10 years. Function: Family reports that he was entirely independent prior to hospitalization: Managing his own household, finances. Driving. Spiritual history: Not queried Palliative review of systems: Unable to answer Pain: Dyspnea: GI symptoms: Appetite: Depression: Anxiety: None Emotional Distress: Spiritual/Existential Distress: Advanced Care Planning: Advanced Directive: Family believes he has no advanced directive or other documents Health Care Agent: Has never been discussed that family is aware of. COLST: No document on file and none that family is aware of Limitations: Assessment and Plan Assessment and plan (1) Palliative care encounter: Status: Acute (2) Advanced care planning/counseling discussion: Status: Acute Assessment and plan: Family meeting today 45 minutes with daughter Ly, her boyfriend, patient's ex-. The patient's 2 sons and his mother attended by phone for part of the meeting. We discussed current diagnosis, along with uncertainty of cause of change in mental status, guarded prognosis. History obtained. All family members identified tanika Modi as the person who should function as healthcare surrogate. Ly is also willing to function in this role. There is consensus among all family members that he would not want to have CPR or be intubated under any circumstance. They described him as extremely independent and avoiding interaction with health system is much as possible. Discussion regarding this included sons Malik and Anam as well as patient's mother via phone. Family also felt he would want to be in the hospital, short of CPR and intubation, he would want treatment including antibiotics IV fluids and pressors. COLST was drawn up to reflect wishes of the surrogate and family. Hospitalist and ICU nurse team informed of this. Both the family and myself are hoping to discuss goals of care with the patient as soon as he is awake and has capacity to have this discussion. Myself or other members of the palliative care team will continue to see patient and meet with family on an intermittent basis to help with goals of care decisions and offer additional support going forward. Please contact our office if patient needs to be seen sooner. Total of 46 minutes or more spent today on Advance Care Planning. Patient and family participated voluntarily. Advance care planning may include (not limited to) explanation and discussion of advance directives, choosing and appointing healthcare agents, alternatives to various ACP tools, discussion of (and if indicated, completion of) COLST form, discussion of patient's values and overall goals for treatment, palliative and disease directive care options, ways to avoid hospital readmission including hospice discussions, care preferences should the patient's several other adverse health events. See today's palliative care note for additional information. (3) Toxic metabolic encephalopathy: Status: Acute (4) Alcohol use disorder: Status: Acute Assessment and plan: Family is very hopeful that after this severe illness, patient will decide to stop drinking . Anticipatory guidance around alcoholism. No members of the family have participated in Al-Anon or individual counseling. Brief discussion on effect of alcoholism on surrounding family members. Recommended to family that they consider going to an Al-Anon meeting or individual counseling or reading a book on family members of alcoholics. (5) Septic shock: Status: Acute (6) DKA (diabetic ketoacidosis): Status: Acute (7) Pancreatic pseudocyst: Status: Chronic (8) Pancreatitis: Status: Acute [facility] All Active Problems (Updated 09/17/22 @ 06:33 by Jany Swift MD) Advanced care planning/counseling discussion (Acute) Palliative care encounter (Acute) Toxic metabolic encephalopathy (Acute) Septic shock (Acute) Alcohol use disorder (Acute) Hypovolemic shock (Acute) DKA (diabetic ketoacidosis) (Acute) Normal anion gap metabolic acidosis (Acute) DVT prophylaxis (Acute) GERD without esophagitis (Acute) Neutrophilic leukocytosis (Acute) Elevated troponin I level (Acute) TULIO (acute kidney injury) (Acute) Chronic pancreatitis due to acute alcohol intoxication (Acute) High anion gap metabolic acidosis (Acute) Diabetic acidosis, type I (Acute) Constipation (Acute) Pancreatitis (Acute) Diabetes (Acute) Hypertension (Acute) Pancreatic pseudocyst (Chronic) Alcohol intake above recommended sensible limits (Chronic) Essential hypertension (Chronic 01/10/13) Hyperlipidemia (Chronic 07/15/12) Male erectile disorder (Chronic) normal testosterone Rosacea (Chronic) Tobacco dependence due to chewing tobacco (Chronic) Onychomycosis (Chronic) on fingers and toes; declines to treat due to possible medication side effects. Anxiety disorder (Chronic) Hypomagnesemia (Acute) Hypokalemia (Acute) Thrombocytopenia (Acute) Uncontrolled type 2 diabetes mellitus with hyperglycemia, with long-term current use of insulin (Chronic) Medical History (Updated 09/17/22 @ 06:33 by Jany Swift MD) Acute pancreatitis (12/19/13) 12/20/13,11/04/17, 04/2022 Atrial fibrillation Stable. History during hospitalization in 2018, negative Zio patch for 48 hrs. Cerebellar lesion ruled out with MRI Depression a. inpatient admission Surgical History H/O arthroscopy of right knee Family History Grandfather , [place] at age 54. Myocardial infarction Father Prostate cancer Grandfather Personal history of malignant neoplasm Social History (Updated 05/30/22 @ 12:38 by Rebeca Perry) Smoking/Tobacco Use Status: Former Tobacco Use Smokeless tobacco user: chewing tobacco Counseling given: provider counseling Smoking risk assessment performed?: Yes Alcohol Intake: current Alcohol Intake frequency: 3 or more drinks per day Drug use: Never Substance use type: does not use Details: no alcohol for 12+ days due to pancreatitis Household members: none Housing: other Number of Children: 3 Education Level: high school current occupation: Currently unemployed Pets and animals: Yes Pets and animals: dog(s) Sexually active: No What is your relationship status?: How often do you get together with friends or relatives?: once per week Panel score (0-1 are the most socially isolated patients): 0 What type of physical activity do you participate in: walking Do you feel safe at home: Yes Do you feel safe in your relationship?: Yes Exam Narrative Exam Narrative: Middle-age man laying in bed in intensive care unit. Opens eyes briefly to voice. Only once answers question. When I ask him if he would want Ly to make medical decisions for him, he clearly said yes . I was unable to get him to confirm this or answer any other questions. Seems comfortable, no respiratory distress Results Last Vital Signs Temp 36.4 C L 09/16/22 14:00 Pulse 90 09/16/22 13:16 Resp 21 09/16/22 13:16 BP 95/67 L 09/16/22 13:16 Pulse Ox 99 09/16/22 13:16 Labs 09/16/22 06:10 09/16/22 21:15 Labs: Laboratory Results - last 24 hr 09/15/22 09/15/22 09/15/22 17:21 17:21 17:21 WBC 21.33 H RBC 4.17 L Hgb 14.4 Hct 46.5 MCV 112 H MCH 34.5 H MCHC 31.0 L RDW 12.6 Plt Count 375 MPV 10.7 Immature Gran % 0.0 Neutrophils % 60.0 Band Neutrophils % 7 Lymphocytes % 16.0 Monocytes % 16.0 Eosinophils % 0.0 Basophils % 0.0 Myelocytes % 1 Nucleated RBC % 0.0 Absolute Neutrophils 14.29 H Absolute Lymphocytes 3.41 H Absolute Monocytes 3.41 H Absolute Eosinophils 0.00 Absolute Basophils 0.00 RBC Morphology See Below Macrocytosis 2+ PT INR VBG pH VBG pCO2 VBG pO2 VBG HCO3 VBG Total CO2 VBG O2 Saturation VBG Base Excess VBG Lactate Sodium 133 L Potassium 5.5 H Chloride 94 L Carbon Dioxide < 5.0 L* Anion Gap 34.82565 H BUN 19 H Creatinine 1.8 H Est GFR (CKD-EPI 2020) 43.90 Glucose 492 H Calcium 10.8 H Phosphorus Magnesium 2.1 Total Bilirubin 0.8 Conjugated Bilirubin AST 70 H ALT 28 Alkaline Phosphatase 314 H Ammonia 77 H Creatine Kinase Troponin I 101 H* Total Protein 8.7 H Albumin 3.2 L Triglycerides Total Cholesterol LDL Cholesterol, Calc HDL Cholesterol Lipase 32 Procalcitonin TSH 1.34 Urine Color Urine Clarity Urine pH Ur Specific [address] Urine Protein Urine Ketones Urine Blood Urine Nitrite Urine Bilirubin Urine Urobilinogen Ur Leukocyte Esterase Urine RBC Urine WBC Ur Epithelial Cells Urine Crystals Urine Bacteria Urine Casts Urine Mucus Ur Culture Indicated? Urine Glucose Urine Opiates Screen Urine Methadone Screen Ur Barbiturates Screen Ur Tricyclics Screen Ur Amphetamines Screen U Benzodiazepines Scrn Urine Cocaine Screen Ur THC Screen Ethyl Alcohol < 3.0 09/15/22 09/15/22 09/15/22 17:34 17:34 18:00 WBC RBC Hgb Hct MCV MCH MCHC RDW Plt Count MPV Immature Gran % Neutrophils % Band Neutrophils % Lymphocytes % Monocytes % Eosinophils % Basophils % Myelocytes % Nucleated RBC % Absolute Neutrophils Absolute Lymphocytes Absolute Monocytes Absolute Eosinophils Absolute Basophils RBC Morphology Macrocytosis PT INR VBG pH VBG pCO2 VBG pO2 VBG HCO3 VBG Total CO2 VBG O2 Saturation VBG Base Excess VBG Lactate 3.3 H* Sodium Potassium Chloride Carbon Dioxide Anion Gap BUN Creatinine Est GFR (CKD-EPI 2020) Glucose Calcium Phosphorus Magnesium Total Bilirubin Conjugated Bilirubin AST ALT Alkaline Phosphatase Ammonia Creatine Kinase Troponin I Total Protein Albumin Triglycerides Total Cholesterol LDL Cholesterol, Calc HDL Cholesterol Lipase Procalcitonin TSH Urine Color Yellow Urine Clarity Clear Urine pH 5.[address] 1.020 Urine Protein 100 H Urine Ketones >=160 H Urine Blood Small H Urine Nitrite Negative Urine Bilirubin Small H Urine Urobilinogen 0.2 Ur Leukocyte Esterase Negative Urine RBC 0-2 Urine WBC 0-2 Ur Epithelial Cells Rare Urine Crystals Negative Urine Bacteria Few Urine Casts 0-2 Fine Granular Urine Mucus Trace Ur Culture Indicated? No Urine Glucose 500 H Urine Opiates Screen Negative Urine Methadone Screen Negative Ur Barbiturates Screen Negative Ur Tricyclics Screen Negative Ur Amphetamines Screen Negative U Benzodiazepines Scrn Negative Urine Cocaine Screen Negative Ur THC Screen Negative Ethyl Alcohol 09/15/22 09/15/22 09/15/22 18:00 18:00 20:43 WBC RBC Hgb Hct MCV MCH MCHC RDW Plt Count MPV Immature Gran % Neutrophils % Band Neutrophils % Lymphocytes % Monocytes % Eosinophils % Basophils % Myelocytes % Nucleated RBC % Absolute Neutrophils Absolute Lymphocytes Absolute Monocytes Absolute Eosinophils Absolute Basophils RBC Morphology Macrocytosis PT INR VBG pH VBG pCO2 VBG pO2 VBG HCO3 VBG Total CO2 VBG O2 Saturation VBG Base Excess VBG Lactate Sodium 137 Potassium 4.2 D Chloride 101 Carbon Dioxide < 5.0 L* Anion Gap 31.28316 H BUN 16 Creatinine 1.5 H Est GFR (CKD-EPI 2020) 54.64 Glucose 418 H Calcium 8.6 Phosphorus 7.1 H Magnesium Total Bilirubin Conjugated Bilirubin AST ALT Alkaline Phosphatase Ammonia Creatine Kinase Troponin I 281 H* Total Protein Albumin Triglycerides Total Cholesterol LDL Cholesterol, Calc HDL Cholesterol Lipase Procalcitonin TSH Urine Color Urine Clarity Urine pH Ur Specific [address] Urine Protein Urine Ketones Urine Blood Urine Nitrite Urine Bilirubin Urine Urobilinogen Ur Leukocyte Esterase Urine RBC Urine WBC Ur Epithelial Cells Urine Crystals Urine Bacteria Urine Casts Urine Mucus Ur Culture Indicated? Urine Glucose Urine Opiates Screen Urine Methadone Screen Ur Barbiturates Screen Ur Tricyclics Screen Ur Amphetamines Screen U Benzodiazepines Scrn Urine Cocaine Screen Ur THC Screen Ethyl Alcohol 09/15/22 09/15/22 09/15/22 20:43 22:15 22:15 WBC RBC Hgb Hct MCV MCH MCHC RDW Plt Count MPV Immature Gran % Neutrophils % Band Neutrophils % Lymphocytes % Monocytes % Eosinophils % Basophils % Myelocytes % Nucleated RBC % Absolute Neutrophils Absolute Lymphocytes Absolute Monocytes Absolute Eosinophils Absolute Basophils RBC Morphology Macrocytosis PT INR VBG pH VBG pCO2 VBG pO2 VBG HCO3 VBG Total CO2 VBG O2 Saturation VBG Base Excess VBG Lactate Sodium 136 136 Potassium 5.0 5.0 Chloride 96 L 97 L Carbon Dioxide 6.9 L 5.6 L Anion Gap 33.1 H 33.4 H BUN 18 20 H Creatinine 1.7 H 1.8 H Est GFR (CKD-EPI 2020) 47.02 43.90 Glucose 460 H 450 H Calcium 9.9 10.4 H Phosphorus Magnesium Total Bilirubin Conjugated Bilirubin AST ALT Alkaline Phosphatase Ammonia Creatine Kinase Troponin I 314 H* Total Protein Albumin Triglycerides Total Cholesterol LDL Cholesterol, Calc HDL Cholesterol Lipase Procalcitonin TSH Urine Color Urine Clarity Urine pH Ur Specific [address] Urine Protein Urine Ketones Urine Blood Urine Nitrite Urine Bilirubin Urine Urobilinogen Ur Leukocyte Esterase Urine RBC Urine WBC Ur Epithelial Cells Urine Crystals Urine Bacteria Urine Casts Urine Mucus Ur Culture Indicated? Urine Glucose Urine Opiates Screen Urine Methadone Screen Ur Barbiturates Screen Ur Tricyclics Screen Ur Amphetamines Screen U Benzodiazepines Scrn Urine Cocaine Screen Ur THC Screen Ethyl Alcohol 09/15/22 09/15/22 09/15/22 22:15 22:15 22:35 WBC RBC Hgb Hct MCV MCH MCHC RDW Plt Count MPV Immature Gran % Neutrophils % Band Neutrophils % Lymphocytes % Monocytes % Eosinophils % Basophils % Myelocytes % Nucleated RBC % Absolute Neutrophils Absolute Lymphocytes Absolute Monocytes Absolute Eosinophils Absolute Basophils RBC Morphology Macrocytosis PT 11.5 H INR 1.1 VBG pH 6.83 L* VBG pCO2 26 L VBG pO2 46 VBG HCO3 4 L VBG Total CO2 5 L VBG O2 Saturation 70 VBG Base Excess -30 L VBG Lactate 2.4 H* Sodium Potassium Chloride Carbon Dioxide Anion Gap BUN Creatinine Est GFR (CKD-EPI 2020) Glucose Calcium Phosphorus Magnesium Total Bilirubin Conjugated Bilirubin AST ALT Alkaline Phosphatase Ammonia Creatine Kinase Troponin I Total Protein Albumin Triglycerides Total Cholesterol LDL Cholesterol, Calc HDL Cholesterol Lipase Procalcitonin TSH Urine Color Urine Clarity Urine pH Ur Specific [address] Urine Protein Urine Ketones Urine Blood Urine Nitrite Urine Bilirubin Urine Urobilinogen Ur Leukocyte Esterase Urine RBC Urine WBC Ur Epithelial Cells Urine Crystals Urine Bacteria Urine Casts Urine Mucus Ur Culture Indicated? Urine Glucose Urine Opiates Screen Urine Methadone Screen Ur Barbiturates Screen Ur Tricyclics Screen Ur Amphetamines Screen U Benzodiazepines Scrn Urine Cocaine Screen Ur THC Screen Ethyl Alcohol 09/16/22 09/16/22 09/16/22 00:50 00:50 00:50 WBC RBC Hgb Hct MCV MCH MCHC RDW Plt Count MPV Immature Gran % Neutrophils % Band Neutrophils % Lymphocytes % Monocytes % Eosinophils % Basophils % Myelocytes % Nucleated RBC % Absolute Neutrophils Absolute Lymphocytes Absolute Monocytes Absolute Eosinophils Absolute Basophils RBC Morphology Macrocytosis PT INR VBG pH 6.92 L* VBG pCO2 27 L VBG pO2 34 VBG HCO3 6 L VBG Total CO2 6 L VBG O2 Saturation 59 VBG Base Excess -27 L VBG Lactate 2.3 H* Sodium Potassium Chloride Carbon Dioxide Anion Gap BUN Creatinine Est GFR (CKD-EPI 2020) Glucose Calcium Phosphorus Magnesium Total Bilirubin Conjugated Bilirubin AST ALT Alkaline Phosphatase Ammonia Creatine Kinase Troponin I 396 H* Total Protein Albumin Triglycerides Total Cholesterol LDL Cholesterol, Calc HDL Cholesterol Lipase Procalcitonin TSH Urine Color Urine Clarity Urine pH Ur Specific [address] Urine Protein Urine Ketones Urine Blood Urine Nitrite Urine Bilirubin Urine Urobilinogen Ur Leukocyte Esterase Urine RBC Urine WBC Ur Epithelial Cells Urine Crystals Urine Bacteria Urine Casts Urine Mucus Ur Culture Indicated? Urine Glucose Urine Opiates Screen Urine Methadone Screen Ur Barbiturates Screen Ur Tricyclics Screen Ur Amphetamines Screen U Benzodiazepines Scrn Urine Cocaine Screen Ur THC Screen Ethyl Alcohol 09/16/22 09/16/22 09/16/22 00:50 00:50 02:15 WBC RBC Hgb Hct MCV MCH MCHC RDW Plt Count MPV Immature Gran % Neutrophils % Band Neutrophils % Lymphocytes % Monocytes % Eosinophils % Basophils % Myelocytes % Nucleated RBC % Absolute Neutrophils Absolute Lymphocytes Absolute Monocytes Absolute Eosinophils Absolute Basophils RBC Morphology Macrocytosis PT INR VBG pH VBG pCO2 VBG pO2 VBG HCO3 VBG Total CO2 VBG O2 Saturation VBG Base Excess VBG Lactate Sodium 138 139 Potassium 5.0 5.1 Chloride 99 100 Carbon Dioxide 7.8 L 7.2 L Anion Gap 31.2 H 31.8 H BUN 20 H 19 H Creatinine 1.7 H 1.6 H Est GFR (CKD-EPI 2020) 47.02 50.57 Glucose 379 H 357 H Calcium 10.2 H 10.4 H Phosphorus Magnesium Total Bilirubin Conjugated Bilirubin AST ALT Alkaline Phosphatase Ammonia Creatine Kinase 158 Troponin I Total Protein Albumin Triglycerides Total Cholesterol LDL Cholesterol, Calc HDL Cholesterol Lipase Procalcitonin 0.6 TSH Urine Color Urine Clarity Urine pH Ur Specific [address] Urine Protein Urine Ketones Urine Blood Urine Nitrite Urine Bilirubin Urine Urobilinogen Ur Leukocyte Esterase Urine RBC Urine WBC Ur Epithelial Cells Urine Crystals Urine Bacteria Urine Casts Urine Mucus Ur Culture Indicated? Urine Glucose Urine Opiates Screen Urine Methadone Screen Ur Barbiturates Screen Ur Tricyclics Screen Ur Amphetamines Screen U Benzodiazepines Scrn Urine Cocaine Screen Ur THC Screen Ethyl Alcohol 09/16/22 09/16/22 09/16/22 04:25 05:22 06:10 WBC RBC Hgb Hct MCV MCH MCHC RDW Plt Count MPV Immature Gran % Neutrophils % Band Neutrophils % Lymphocytes % Monocytes % Eosinophils % Basophils % Myelocytes % Nucleated RBC % Absolute Neutrophils Absolute Lymphocytes Absolute Monocytes Absolute Eosinophils Absolute Basophils RBC Morphology Macrocytosis PT INR VBG pH 7.11 L* VBG pCO2 21 L VBG pO2 47 VBG HCO3 7 L VBG Total CO2 6 L VBG O2 Saturation 83 VBG Base Excess -23 L VBG Lactate Sodium 141 141 Potassium 4.8 4.8 Chloride 104 105 Carbon Dioxide 8.2 L 9.3 L Anion Gap 28.8 H 26.7 H BUN 20 H 20 H Creatinine 1.6 H 1.5 H Est GFR (CKD-EPI 2020) 50.57 54.64 Glucose 255 H 210 H Calcium 8.9 8.9 Phosphorus Magnesium Total Bilirubin 0.8 Conjugated Bilirubin AST 71 H ALT 32 Alkaline Phosphatase 257 H Ammonia Creatine Kinase Troponin I 367 H* Total Protein 7.5 Albumin 2.8 L Triglycerides 117 Total Cholesterol 162 LDL Cholesterol, Calc 87 HDL Cholesterol 52 Lipase Procalcitonin TSH Urine Color Urine Clarity Urine pH Ur Specific [address] Urine Protein Urine Ketones Urine Blood Urine Nitrite Urine Bilirubin Urine Urobilinogen Ur Leukocyte Esterase Urine RBC Urine WBC Ur Epithelial Cells Urine Crystals Urine Bacteria Urine Casts Urine Mucus Ur Culture Indicated? Urine Glucose Urine Opiates Screen Urine Methadone Screen Ur Barbiturates Screen Ur Tricyclics Screen Ur Amphetamines Screen U Benzodiazepines Scrn Urine Cocaine Screen Ur THC Screen Ethyl Alcohol 09/16/22 09/16/22 09/16/22 06:10 06:10 06:10 WBC 18.71 H RBC 3.95 L Hgb 13.7 Hct 41.3 MCV 105 H D MCH 34.7 H MCHC 33.2 D RDW 12.7 Plt Count 308 MPV 10.4 Immature Gran % 1.6 Neutrophils % 77.5 Band Neutrophils % Lymphocytes % 11.7 Monocytes % 8.9 Eosinophils % 0.0 Basophils % 0.3 Myelocytes % Nucleated RBC % 0.0 Absolute Neutrophils 14.50 H Absolute Lymphocytes 2.19 Absolute Monocytes 1.67 H Absolute Eosinophils 0.00 Absolute Basophils 0.06 RBC Morphology Macrocytosis PT INR VBG pH VBG pCO2 VBG pO2 VBG HCO3 VBG Total CO2 VBG O2 Saturation VBG Base Excess VBG Lactate Sodium Potassium Chloride Carbon Dioxide Anion Gap BUN Creatinine Est GFR (CKD-EPI 2020) Glucose Calcium Phosphorus Magnesium 1.7 L Total Bilirubin Conjugated Bilirubin AST ALT Alkaline Phosphatase Ammonia 18 Creatine Kinase Troponin I Total Protein Albumin Triglycerides Total Cholesterol LDL Cholesterol, Calc HDL Cholesterol Lipase Procalcitonin TSH Urine Color Urine Clarity Urine pH Ur Specific [address] Urine Protein Urine Ketones Urine Blood Urine Nitrite Urine Bilirubin Urine Urobilinogen Ur Leukocyte Esterase Urine RBC Urine WBC Ur Epithelial Cells Urine Crystals Urine Bacteria Urine Casts Urine Mucus Ur Culture Indicated? Urine Glucose Urine Opiates Screen Urine Methadone Screen Ur Barbiturates Screen Ur Tricyclics Screen Ur Amphetamines Screen U Benzodiazepines Scrn Urine Cocaine Screen Ur THC Screen Ethyl Alcohol 09/16/22 09/16/22 09/16/22 06:10 06:10 06:15 WBC RBC Hgb Hct MCV MCH MCHC RDW Plt Count MPV Immature Gran % Neutrophils % Band Neutrophils % Lymphocytes % Monocytes % Eosinophils % Basophils % Myelocytes % Nucleated RBC % Absolute Neutrophils Absolute Lymphocytes Absolute Monocytes Absolute Eosinophils Absolute Basophils RBC Morphology Macrocytosis PT INR VBG pH VBG pCO2 VBG pO2 VBG HCO3 VBG Total CO2 VBG O2 Saturation VBG Base Excess VBG Lactate 1.0 Sodium Cancelled Potassium Cancelled Chloride Cancelled Carbon Dioxide Cancelled Anion Gap Cancelled BUN Cancelled Creatinine Cancelled Est GFR (CKD-EPI 2020) Cancelled Glucose Cancelled Calcium Cancelled Phosphorus 2.8 Magnesium Total Bilirubin 0.9 Conjugated Bilirubin 0.4 H AST 70 H ALT 32 Alkaline Phosphatase 257 H Ammonia Creatine Kinase Troponin I Total Protein 7.5 Albumin 2.8 L Triglycerides Total Cholesterol LDL Cholesterol, Calc HDL Cholesterol Lipase Procalcitonin TSH Urine Color Urine Clarity Urine pH Ur Specific [address] Urine Protein Urine Ketones Urine Blood Urine Nitrite Urine Bilirubin Urine Urobilinogen Ur Leukocyte Esterase Urine RBC Urine WBC Ur Epithelial Cells Urine Crystals Urine Bacteria Urine Casts Urine Mucus Ur Culture Indicated? Urine Glucose Urine Opiates Screen Urine Methadone Screen Ur Barbiturates Screen Ur Tricyclics Screen Ur Amphetamines Screen U Benzodiazepines Scrn Urine Cocaine Screen Ur THC Screen Ethyl Alcohol 09/16/22 09/16/22 09/16/22 08:35 08:35 10:30 WBC RBC Hgb Hct MCV MCH MCHC RDW Plt Count MPV Immature Gran % Neutrophils % Band Neutrophils % Lymphocytes % Monocytes % Eosinophils % Basophils % Myelocytes % Nucleated RBC % Absolute Neutrophils Absolute Lymphocytes Absolute Monocytes Absolute Eosinophils Absolute Basophils RBC Morphology Macrocytosis PT INR VBG pH 7.16 L* VBG pCO2 22 L VBG pO2 74 VBG HCO3 8 L VBG Total CO2 7 L VBG O2 Saturation 95 VBG Base Excess -21 L VBG Lactate Sodium 140 140 Potassium 4.4 4.3 Chloride 106 107 Carbon Dioxide 9.7 L 11.3 L Anion Gap 24.3 H 21.7 H BUN 19 H 19 H Creatinine 1.5 H 1.6 H Est GFR (CKD-EPI 2020) 54.64 50.57 Glucose 226 H 225 H Calcium 8.6 8.8 Phosphorus Magnesium Total Bilirubin Conjugated Bilirubin AST ALT Alkaline Phosphatase [place] Creatine Kinase Troponin I Total Protein Albumin Triglycerides Total Cholesterol LDL Cholesterol, Calc HDL Cholesterol Lipase Procalcitonin TSH Urine Color Urine Clarity Urine pH Ur Specific [address] Urine Protein Urine Ketones Urine Blood Urine Nitrite Urine Bilirubin Urine Urobilinogen Ur Leukocyte Esterase Urine RBC Urine WBC Ur Epithelial Cells Urine Crystals Urine Bacteria Urine Casts Urine Mucus Ur Culture Indicated? Urine Glucose Urine Opiates Screen Urine Methadone Screen Ur Barbiturates Screen Ur Tricyclics Screen Ur Amphetamines Screen U Benzodiazepines Scrn Urine Cocaine Screen Ur THC Screen Ethyl Alcohol 09/16/22 09/16/22 09/16/22 11:11 12:15 13:55 WBC RBC Hgb Hct MCV MCH MCHC RDW Plt Count MPV Immature Gran % Neutrophils % Band Neutrophils % Lymphocytes % Monocytes % Eosinophils % Basophils % Myelocytes % Nucleated RBC % Absolute Neutrophils Absolute Lymphocytes Absolute Monocytes Absolute Eosinophils Absolute Basophils RBC Morphology Macrocytosis PT INR VBG pH 7.34 VBG pCO2 29 L VBG pO2 42 VBG HCO3 16 L VBG Total CO2 14 L VBG O2 Saturation 85 VBG Base Excess -10 L VBG Lactate Sodium Cancelled Cancelled Potassium Cancelled Cancelled Chloride Cancelled Cancelled Carbon Dioxide Cancelled Cancelled Anion Gap Cancelled Cancelled BUN Cancelled Cancelled Creatinine Cancelled Cancelled Est GFR (CKD-EPI 2020) Cancelled Cancelled Glucose Cancelled Cancelled Calcium Cancelled Cancelled Phosphorus Magnesium Total Bilirubin Conjugated Bilirubin AST ALT Alkaline Phosphatase [place] Creatine Kinase Troponin I Total Protein Albumin Triglycerides Total Cholesterol LDL Cholesterol, Calc HDL Cholesterol Lipase Procalcitonin TSH Urine Color Urine Clarity Urine pH Ur Specific [address] Urine Protein Urine Ketones Urine Blood Urine Nitrite Urine Bilirubin Urine Urobilinogen Ur Leukocyte Esterase Urine RBC Urine WBC Ur Epithelial Cells Urine Crystals Urine Bacteria Urine Casts Urine Mucus Ur Culture Indicated? Urine Glucose Urine Opiates Screen Urine Methadone Screen Ur Barbiturates Screen Ur Tricyclics Screen Ur Amphetamines Screen U Benzodiazepines Scrn Urine Cocaine Screen Ur THC Screen Ethyl Alcohol 09/16/22 09/16/22 09/16/22 14:00 14:15 16:00 WBC RBC Hgb Hct MCV MCH MCHC RDW Plt Count MPV Immature Gran % Neutrophils % Band Neutrophils % Lymphocytes % Monocytes % Eosinophils % Basophils % Myelocytes % Nucleated RBC % Absolute Neutrophils Absolute Lymphocytes Absolute Monocytes Absolute Eosinophils Absolute Basophils RBC Morphology Macrocytosis PT INR VBG pH Cancelled 7.34 VBG pCO2 Cancelled 33 L VBG pO2 Cancelled 22 VBG HCO3 Cancelled 18 L VBG Total CO2 Cancelled 17 L VBG O2 Saturation Cancelled 50 VBG Base Excess Cancelled -8 L VBG Lactate Sodium Cancelled Potassium Cancelled Chloride Cancelled Carbon Dioxide Cancelled Anion Gap Cancelled BUN Cancelled Creatinine Cancelled Est GFR (CKD-EPI 2020) Cancelled Glucose Cancelled Calcium Cancelled Phosphorus Magnesium Total Bilirubin Conjugated Bilirubin AST ALT Alkaline Phosphatase [place] Creatine Kinase Troponin I Total Protein Albumin Triglycerides Total Cholesterol LDL Cholesterol, Calc HDL Cholesterol Lipase Procalcitonin TSH Urine Color Urine Clarity Urine pH Ur Specific [address] Urine Protein Urine Ketones Urine Blood Urine Nitrite Urine Bilirubin Urine Urobilinogen Ur Leukocyte Esterase Urine RBC Urine WBC Ur Epithelial Cells Urine Crystals Urine Bacteria Urine Casts Urine Mucus Ur Culture Indicated? Urine Glucose Urine Opiates Screen Urine Methadone Screen Ur Barbiturates Screen Ur Tricyclics Screen Ur Amphetamines Screen U Benzodiazepines Scrn Urine Cocaine Screen Ur THC Screen Ethyl Alcohol 09/16/22 09/16/22 09/16/22 16:15 18:15 20:15 WBC RBC Hgb Hct MCV MCH MCHC RDW Plt Count MPV Immature Gran % Neutrophils % Band Neutrophils % Lymphocytes % Monocytes % Eosinophils % Basophils % Myelocytes % Nucleated RBC % Absolute Neutrophils Absolute Lymphocytes Absolute Monocytes Absolute Eosinophils Absolute Basophils RBC Morphology Macrocytosis PT INR VBG pH VBG pCO2 VBG pO2 VBG HCO3 VBG Total CO2 VBG O2 Saturation VBG Base Excess VBG Lactate Sodium Cancelled Cancelled Cancelled Potassium Cancelled Cancelled Cancelled Chloride Cancelled Cancelled Cancelled Carbon Dioxide Cancelled Cancelled Cancelled Anion Gap Cancelled Cancelled Cancelled BUN Cancelled Cancelled Cancelled Creatinine Cancelled Cancelled Cancelled Est GFR (CKD-EPI 2020) Cancelled Cancelled Cancelled Glucose Cancelled Cancelled Cancelled Calcium Cancelled Cancelled Cancelled Phosphorus Magnesium Total Bilirubin Conjugated Bilirubin AST ALT Alkaline Phosphatase [place] Creatine Kinase Troponin I Total Protein Albumin Triglycerides Total Cholesterol LDL Cholesterol, Calc HDL Cholesterol Lipase Procalcitonin TSH Urine Color Urine Clarity Urine pH Ur Specific [address] Urine Protein Urine Ketones Urine Blood Urine Nitrite Urine Bilirubin Urine Urobilinogen Ur Leukocyte Esterase Urine RBC Urine WBC Ur Epithelial Cells Urine Crystals Urine Bacteria Urine Casts Urine Mucus Ur Culture Indicated? Urine Glucose Urine Opiates Screen Urine Methadone Screen Ur Barbiturates Screen Ur Tricyclics Screen Ur Amphetamines Screen U Benzodiazepines Scrn Urine Cocaine Screen Ur THC Screen Ethyl Alcohol 09/16/22 22:15 WBC RBC Hgb Hct MCV MCH MCHC RDW Plt Count MPV Immature Gran % Neutrophils % Band Neutrophils % Lymphocytes % Monocytes % Eosinophils % Basophils % Myelocytes % Nucleated RBC % Absolute Neutrophils Absolute Lymphocytes Absolute Monocytes Absolute Eosinophils Absolute Basophils RBC Morphology Macrocytosis PT INR VBG pH VBG pCO2 VBG pO2 VBG HCO3 VBG Total CO2 VBG O2 Saturation VBG Base Excess VBG Lactate Sodium Cancelled Potassium Cancelled Chloride Cancelled Carbon Dioxide Cancelled Anion Gap Cancelled BUN Cancelled Creatinine Cancelled Est GFR (CKD-EPI 2020) Cancelled Glucose Cancelled Calcium Cancelled Phosphorus Magnesium Total Bilirubin Conjugated Bilirubin AST ALT Alkaline Phosphatase [place] Creatine Kinase Troponin I Total Protein Albumin Triglycerides Total Cholesterol LDL Cholesterol, Calc HDL Cholesterol Lipase Procalcitonin TSH Urine Color Urine Clarity Urine pH Ur Specific [address] Urine Protein Urine Ketones Urine Blood Urine Nitrite Urine Bilirubin Urine Urobilinogen Ur Leukocyte Esterase Urine RBC Urine WBC Ur Epithelial Cells Urine Crystals Urine Bacteria Urine Casts Urine Mucus Ur Culture Indicated? Urine Glucose Urine Opiates Screen Urine Methadone Screen Ur Barbiturates Screen Ur Tricyclics Screen Ur Amphetamines Screen U Benzodiazepines Scrn Urine Cocaine Screen Ur THC Screen Ethyl Alcohol
[2022-09-16 16:30] LABS: Anion Gap 14.4 mmol/L (3-11); BUN 14 mg/dL (7-18); CO2 18.6 mmol/L (21.0-32.0); CREATININE 1.2 mg/dL (0.70-1.30); Calcium 7.4 mg/dL (8.5-10.1); Chloride 112 mmol/L (98-107); Estimated GFR 71.42 (mL/min/1.73m2); Glucose 159 mg/dL (74-106); Sodium 145 mmol/L (136-145)
[2022-09-16 16:46] LABS: Potassium 2.8 mmol/L (3.5-5.1)
[2022-09-16] MEDS: POTASSIUM CHLORIDE 20 MEQ/100 ML BAG 50 MEQ IVPB ×3 (18:21→20:53)
[2022-09-16 19:26] LABS: BE (Venous) -7 mmol/L (-2-3); HCO3 (Venous) 18 mmol/L (23-28); O2 Sat (Venous) 71 %; TCO2 (Venous) 17 mmol/L (24-29); pCO2 (Venous) 32 mmHg (41-51); pH (Venous) 7.36 (7.31-7.41); pO2 (Venous) 32 mmHg
[2022-09-16] MEDS: Biotene Mouthwash 237 ML BTL MM (19:44)
[2022-09-16 19:45] LABS: BUN 10 mg/dL (7-18); Chloride 118 mmol/L (98-107); Estimated GFR 88.88 (mL/min/1.73m2); Glucose 60 mg/dL (74-106); Sodium 149 mmol/L (136-145)
[2022-09-16 19:50] LABS: Calcium 6.3 mg/dL (8.5-10.1); Potassium 2.3 mmol/L (3.5-5.1)
--- NOTE | 2022-09-16 20:58 | W.EVENT ---
Date of service: 09/16/22 Time of Service: 20:58 Event Note: Called for electrolyte abnormalities. Case reviewed, here with DKA (resolving) and sepsis of intrabdominal souce, in setting of pancreatitis. K 2.3, has been ordered for 20 mEq x4 (currently on #3). Calcium now 6.3, has been steadily dropping from peak 10.8. Mg slightly low 1.7. No twitching noted by nurses and none on my exam. Negative Chovstek's sign, A/P: The modest hypoalbuminemia acounts for only a small portion of the hypocalcemia, and would besides not account for the drop. Likewise the acidosis has essentially resolved and the hypomagnesemia is very mild. I believe the most likely explanation for the hypocalcemia here in the setting of pancreatitis is tissue deposition. Patient is not exhibiting acute signs of toxicity but I think it best to get ahead of the trend. Will check PTH, ionized Ca and then give IV Calcium Gluconate. The hypokalemia is already being addressed. Time Spent with Patient Time spent in critical care(minutes): 20 Time Spent Included: Chart review, Documenting critically ill care and Time at immediate bedside
[2022-09-16 21:24] LABS: BE (Venous) -3 mmol/L (-2-3); HCO3 (Venous) 22 mmol/L (23-28); O2 Sat (Venous) 79 %; TCO2 (Venous) 20 mmol/L (24-29); pCO2 (Venous) 35 mmHg (41-51); pH (Venous) 7.41 (7.31-7.41); pO2 (Venous) 36 mmHg
[2022-09-16 21:40] LABS: Anion Gap 11.7 mmol/L (3-11); BUN 12 mg/dL (7-18); CO2 23.3 mmol/L (21.0-32.0); CREATININE 1.2 mg/dL (0.70-1.30); Calcium 8.5 mg/dL (8.5-10.1); Chloride 109 mmol/L (98-107); Estimated GFR 71.42 (mL/min/1.73m2); Glucose 98 mg/dL (74-106); Potassium 3.8 mmol/L (3.5-5.1); Sodium 144 mmol/L (136-145)
[2022-09-16] MEDS: CALCIUM GLUCONATE in NaCl 1 GM/50 ML BAG IVPB (21:43)
[2022-09-16] MEDS: INSULIN REGULAR IN 0.9 % NACL 100 UNIT/100 ML BAG IV (21:59)
[2022-09-16] MEDS: POTASSIUM CHLORIDE 20 MEQ/100 ML BAG 100 MEQ IVPB (22:05)
[2022-09-16] MEDS: metroNIDAZOLE 0.75% CR. 45 GM TUBE TP (22:42)
[2022-09-17] VITALS (101 sets, daily range): BP systolic 81–142; BP diastolic 45–94; PULSE 70–127; RESP 0–30; TEMP 36.4–37.5; O2SAT 89–99
[2022-09-17] MEDS: THIAMINE 500 MG in Normal Saline 100 ML 200 MG IVPB ×3 (02:00→18:46)
[2022-09-17] MEDS: PHENobarbital 130 MG/ML VIAL IVP ×3 (02:13→21:50)
[2022-09-17] MEDS: DEXTROSE 5%-0.45% SALINE 1,000 ML 150 ML IV ×2 (03:24→10:09)
[2022-09-17 06:51] LABS: Abs Immature Grans 0.03 10^3/uL (0.0-0.06); Absolute Basophil Count 0.02 10^3/uL (0.0-0.2); Absolute Eosinophil Count 0.02 10^3/uL (0.0-0.7); Absolute Lymphocyte Count 2.03 10^3/uL (1.2-3.4); Absolute Monocyte Count 0.54 10^3/uL (0.1-0.8); Absolute Neutrophil Count 5.28 10^3/uL (1.2-6.7); Basophils % 0.3; Eosinophils % 0.3; HCT 30.6 % (40.0-50.0); HGB 10.6 g/dL (13.5-17.5); Immature Grans % 0.4; Lymphocytes % 25.6; MCH 34.1 pg (27.0-33.0); MCHC 34.6 % (32.0-36.0); MCV 98 fL (80-95); MPV 10.3 fL (8.0-11.0); Monocytes % 6.8; Neutrophils % 66.6; Platelet Count 160 10^3/uL (130-400); RBC 3.11 10^6/uL (4.36-5.78); RDW 12.7 % (11.8-14.1); RDW-SD 45.8 fL; WBC 7.92 10^3/uL (4.4-10.8)
[2022-09-17 07:15] LABS: ALT 22 U/L (16-63); AST 38 U/L (15-37); Albumin 2.3 g/dL (3.4-5.0); Alkaline Phosphatase 189 U/L (46-116); Anion Gap 8.3 mmol/L (3-11); BUN 8 mg/dL (7-18); Bilirubin, Direct 0.1 mg/dL (0.0-0.2); Bilirubin, Total 0.4 mg/dL (0.2-1.0); C-Reactive Protein 3.39 mg/dL (0.0-0.3); CO2 25.7 mmol/L (21.0-32.0); CREATININE 1.2 mg/dL (0.70-1.30); Calcium 8.7 mg/dL (8.5-10.1); Chloride 110 mmol/L (98-107); Estimated GFR 71.42 (mL/min/1.73m2); Glucose 131 mg/dL (74-106); Magnesium 1.6 mg/dL (1.8-2.4); Potassium 3.3 mmol/L (3.5-5.1); Sodium 144 mmol/L (136-145)
[2022-09-17] MEDS: Insulin Glargine 300 UNITS/3 ML PEN 20 UNITS SC (07:22)
[2022-09-17] MEDS: POTASSIUM CHLORIDE 20 MEQ/100 ML BAG 50 MEQ IVPB ×2 (08:09→10:14)
[2022-09-17] MEDS: Normal Saline Flush 10 ML SYR IVP ×4 (08:10→21:50)
[2022-09-17] MEDS: MAGNESIUM SULFATE 4 GM/100 ML BAG IVPB (08:10)
[2022-09-17] MEDS: Norepinephrine in D5W 8 MG/250 ML BAG 5.625 MG IV (08:11)
--- NOTE | 2022-09-17 08:33 | W.PM.PROGNOT ---
Date of Service Date of service: 09/17/22 Time of Service: 08:33 Assessment and Plan Assessment and plan (1) Diabetic acidosis, type I: Status: Resolved Assessment and plan: Anion gap closed, acidosis resolved. He is at this point ready for transition to basal bolus insulin assuming he can tolerate at least a clear liquid diet. We might be able to cover him with Q6 hrly SSI, but I would want to make sure he does not go back into DKA prior to noon. Recheck labs at noon. Continue D5IVF for now. Trigger is likely underlying pancreatitis/pseudocyst +/- infectious process. (2) Pancreatic pseudocyst: Status: Chronic Assessment and plan: Discussed with [facility], who do not feel the patient would benefit from drainage at this time, but would need in 4-6 weeks. I have consulted general surgery to help monitor both it and the area of pancreatic necrosis. I do think he has acute on chronic pancreatitis at this time. (3) Septic shock: Status: Resolved Assessment and plan: Suspected intraabdominal process vs hypovolemic shock. Consult general surgery for closer monitoring of pancreatic necrosis. Continue meropenem. Off of vasopressors since 6:30 pm yesterday. Blood cultures are negative. Trend CRP, procalcitonin. Per GI, no indication for emergent drainage of the pseudocyst at this time. (4) High anion gap metabolic acidosis: Status: Resolved Assessment and plan: In combination with non-anion gap metabolic acidosis. Transitioning to basal bolus insulin today. (5) Elevated troponin I level: Status: Acute Assessment and plan: Suspect type 2 demand ischemia given the degree of acidosis. Continue aspirin. Await echo read. (6) Lactic acidosis: Status: Resolved Assessment and plan: as above (7) Atrial fibrillation: Assessment and plan: While he was slightly irregular, on the EKG we actually do see P waves. He has remained in NSR. I am holding beta blockers for now given that his BPs are not requiring at this time. Qualifiers: Atrial fibrillation type: paroxysmal Qualified Code(s): I48.0 - Paroxysmal atrial fibrillation (8) Neutrophilic leukocytosis: Status: Resolved Assessment and plan: Likely reactive - could be due to DKA, pancreatitis, sepsis. (9) TULIO (acute kidney injury): Status: Resolved Assessment and plan: Continue to monitor. I did write for toradol at the lowest possible dose. (10) Uncontrolled type 2 diabetes mellitus with hyperglycemia, with long-term current use of insulin: Status: Chronic Assessment and plan: as above ?underlying depression and alcoholism that's driving noncompliance. (11) Chronic pancreatitis due to acute alcohol intoxication: Status: Acute Assessment and plan: Acute on chronic. See above. Given co-existence of pancreatic head necrosis, continue meropenem. (12) Hypertension: Status: Acute Assessment and plan: Shock resolved. NOt yet ready for resumption of metoprolol. (13) GERD without esophagitis: Status: Acute Assessment and plan: As seen on CT. Continue protonix. (14) Toxic metabolic encephalopathy: Status: Resolved Assessment and plan: Monitor mental status as DKA and infection are getting treated. The patient is not acting like alcohol withdrawal. (15) Alcohol use disorder: Status: Acute Assessment and plan: Not actively withdrawing from alcohol. Received a low dose load with phenobarbital. Monitor for w/d. Provide vitamin supplementaiton. (16) DVT prophylaxis: Status: Acute Assessment and plan: enoxaparin SC (17) Discharge planning issues: Status: Resolved Assessment and plan: Keep in the ICU. Total Critical Care Time 60 minutes. Keep in the ICU for now. Subjective Subjective Interval history since last seen: Mr Guillermo is a lot more awake today. He is answering and asking questions, following commands. He is reporting epigastric pain and nausea. He denies CP (points to epigastrium), denies SOB. He states he needs to urinate and agrees to have the catheter out once he is able to get up safely. He has been off of vasopressors since 6:30 pm yesterday. His LUE pressures are significantly better than the R arm. His anion gap has closed. His insulin gtt rate is 1.5 units/hr. He has not yet had anything to eat or drink, reporting consistent nausea. Yesterday, in a palliative care meeting, the patient was made DNR/DNI; however, the hope was to revisit the subject once the patient is more alert and able to have this conversation himself. I do not feel he is quite there this morning. Exam Narrative Exam Narrative: General: Middle-aged male who is significantly more alert, A&Ox2, cooperative, does still appear very tried, but overall looks much better. HEENT: EOMI, MMM Heart: RRR, mildly tachycardic, ?HUBERT Lungs: Diminished breath sounds at B bases; taking shallow breaths (guarding) Abdomen: soft, tender in epigastrium nondistended Extremities: no edema BLEs, B feet with venous stasis, Palpable DP LLE today Objective Last Vital Signs Temp 36.5 C 09/17/22 07:12 Pulse 97 H 09/17/22 07:12 Resp 10 L 09/17/22 05:31 BP 89/61 L 09/17/22 05:31 Pulse Ox 99 09/17/22 05:31 Laboratory Results - last 24 hr 09/16/22 09/16/22 09/16/22 08:35 08:35 10:30 WBC RBC Hgb Hct MCV MCH MCHC RDW Plt Count MPV Immature Gran % Neutrophils % Lymphocytes % Monocytes % Eosinophils % Basophils % Nucleated RBC % Absolute Neutrophils Absolute Lymphocytes Absolute Monocytes Absolute Eosinophils Absolute Basophils VBG pH 7.16 L* VBG pCO2 22 L VBG pO2 74 VBG HCO3 8 L VBG Total CO2 7 L VBG O2 Saturation 95 VBG Base Excess -21 L Sodium 140 140 Potassium 4.4 4.3 Chloride 106 107 Carbon Dioxide 9.7 L 11.3 L Anion Gap 24.3 H 21.7 H BUN 19 H 19 H Creatinine 1.5 H 1.6 H Est GFR (CKD-EPI 2020) 54.64 50.57 Glucose 226 H 225 H Calcium 8.6 8.8 Magnesium Total Bilirubin Conjugated Bilirubin AST ALT Alkaline Phosphatase C-Reactive Protein Total Protein Albumin 09/16/22 09/16/22 09/16/22 11:11 12:15 13:55 WBC RBC Hgb Hct MCV MCH MCHC RDW Plt Count MPV Immature Gran % Neutrophils % Lymphocytes % Monocytes % Eosinophils % Basophils % Nucleated RBC % Absolute Neutrophils Absolute Lymphocytes Absolute Monocytes Absolute Eosinophils Absolute Basophils VBG pH 7.34 VBG pCO2 29 L VBG pO2 42 VBG HCO3 16 L VBG Total CO2 14 L VBG O2 Saturation 85 VBG Base Excess -10 L Sodium Cancelled Cancelled Potassium Cancelled Cancelled Chloride Cancelled Cancelled Carbon Dioxide Cancelled Cancelled Anion Gap Cancelled Cancelled BUN Cancelled Cancelled Creatinine Cancelled Cancelled Est GFR (CKD-EPI 2020) Cancelled Cancelled Glucose Cancelled Cancelled Calcium Cancelled Cancelled Magnesium Total Bilirubin Conjugated Bilirubin AST ALT Alkaline Phosphatase C-Reactive Protein Total Protein Albumin 09/16/22 09/16/22 09/16/22 14:15 16:00 16:00 WBC RBC Hgb Hct MCV MCH MCHC RDW Plt Count MPV Immature Gran % Neutrophils % Lymphocytes % Monocytes % Eosinophils % Basophils % Nucleated RBC % Absolute Neutrophils Absolute Lymphocytes Absolute Monocytes Absolute Eosinophils Absolute Basophils VBG pH 7.34 VBG pCO2 33 L VBG pO2 22 VBG HCO3 18 L VBG Total CO2 17 L VBG O2 Saturation 50 VBG Base Excess -8 L Sodium Cancelled 145 Potassium Cancelled 2.8 L* D Chloride Cancelled 112 H Carbon Dioxide Cancelled 18.6 L Anion Gap Cancelled 14.4 H BUN Cancelled 14 Creatinine Cancelled 1.2 Est GFR (CKD-EPI 2020) Cancelled 71.42 Glucose Cancelled 159 H Calcium Cancelled 7.4 L Magnesium Total Bilirubin Conjugated Bilirubin AST ALT Alkaline Phosphatase C-Reactive Protein Total Protein Albumin 09/16/22 09/16/22 09/16/22 16:15 18:15 19:15 WBC RBC Hgb Hct MCV MCH MCHC RDW Plt Count MPV Immature Gran % Neutrophils % Lymphocytes % Monocytes % Eosinophils % Basophils % Nucleated RBC % Absolute Neutrophils Absolute Lymphocytes Absolute Monocytes Absolute Eosinophils Absolute Basophils VBG pH VBG pCO2 VBG pO2 VBG HCO3 VBG Total CO2 VBG O2 Saturation VBG Base Excess Sodium Cancelled Cancelled 149 H Potassium Cancelled Cancelled 2.3 L* Chloride Cancelled Cancelled 118 H Carbon Dioxide Cancelled Cancelled 20.0 L Anion Gap Cancelled Cancelled 11.0 BUN Cancelled Cancelled 10 Creatinine Cancelled Cancelled 1.0 Est GFR (CKD-EPI 2020) Cancelled Cancelled 88.88 Glucose Cancelled Cancelled 60 L Calcium Cancelled Cancelled 6.3 L* Magnesium Total Bilirubin Conjugated Bilirubin AST ALT Alkaline Phosphatase C-Reactive Protein Total Protein Albumin 09/16/22 09/16/22 09/16/22 19:15 20:15 21:15 WBC RBC Hgb Hct MCV MCH MCHC RDW Plt Count MPV Immature Gran % Neutrophils % Lymphocytes % Monocytes % Eosinophils % Basophils % Nucleated RBC % Absolute Neutrophils Absolute Lymphocytes Absolute Monocytes Absolute Eosinophils Absolute Basophils VBG pH 7.36 VBG pCO2 32 L VBG pO2 32 VBG HCO3 18 L VBG Total CO2 17 L VBG O2 Saturation 71 VBG Base Excess -7 L Sodium Cancelled 144 Potassium Cancelled 3.8 D Chloride Cancelled 109 H Carbon Dioxide Cancelled 23.3 Anion Gap Cancelled 11.7 H BUN Cancelled 12 Creatinine Cancelled 1.2 Est GFR (CKD-EPI 2020) Cancelled 71.42 Glucose Cancelled 98 Calcium Cancelled 8.5 Magnesium Total Bilirubin Conjugated Bilirubin AST ALT Alkaline Phosphatase C-Reactive Protein Total Protein Albumin 09/16/22 09/16/22 09/17/22 21:15 22:15 03:11 WBC RBC Hgb Hct MCV MCH MCHC RDW Plt Count MPV Immature Gran % Neutrophils % Lymphocytes % Monocytes % Eosinophils % Basophils % Nucleated RBC % Absolute Neutrophils Absolute Lymphocytes Absolute Monocytes Absolute Eosinophils Absolute Basophils VBG pH 7.41 VBG pCO2 35 L VBG pO2 36 VBG HCO3 22 L VBG Total CO2 20 L VBG O2 Saturation 79 VBG Base Excess -3 L Sodium Cancelled Cancelled Potassium Cancelled Cancelled Chloride Cancelled Cancelled Carbon Dioxide Cancelled Cancelled Anion Gap Cancelled Cancelled BUN Cancelled Cancelled Creatinine Cancelled Cancelled Est GFR (CKD-EPI 2020) Cancelled Cancelled Glucose Cancelled Cancelled Calcium Cancelled Cancelled Magnesium Total Bilirubin Conjugated Bilirubin AST ALT Alkaline Phosphatase C-Reactive Protein Total Protein Albumin 09/17/22 09/17/22 09/17/22 06:30 06:30 07:11 WBC 7.92 RBC 3.11 L Hgb 10.6 L D Hct 30.6 L MCV 98 H D MCH 34.1 H MCHC 34.6 RDW 12.7 Plt Count 160 MPV 10.3 Immature Gran % 0.4 Neutrophils % 66.6 Lymphocytes % 25.6 Monocytes % 6.8 Eosinophils % 0.3 Basophils % 0.3 Nucleated RBC % 0.0 Absolute Neutrophils 5.28 Absolute Lymphocytes 2.03 Absolute Monocytes 0.54 Absolute Eosinophils 0.02 Absolute Basophils 0.02 VBG pH VBG pCO2 VBG pO2 VBG HCO3 VBG Total CO2 VBG O2 Saturation VBG Base Excess Sodium 144 Cancelled Potassium 3.3 L Cancelled Chloride 110 H Cancelled Carbon Dioxide 25.7 Cancelled Anion Gap 8.3 Cancelled BUN 8 Cancelled Creatinine 1.2 Cancelled Est GFR (CKD-EPI 2020) 71.42 Cancelled Glucose 131 H Cancelled Calcium 8.7 Cancelled Magnesium 1.6 L Total Bilirubin 0.4 Conjugated Bilirubin 0.1 AST 38 H ALT 22 Alkaline Phosphatase 189 H C-Reactive Protein 3.39 H Total Protein 6.0 L Albumin 2.3 L Multi-Disciplinary Checklist Lines/Tubes CENTRAL LINE: yes, Central Line Day#: 2 ARTERIAL LINE: no TELLEZ: no ENDOTRACHEAL TUBE: no ICU Maintenance GLUCOSE 140-180mg/dL: yes NUTRITION AT GOAL: no, Reason/Intervention: starting a clear liquid diet PRESSURE ULCER: no RESTRAINTS: no ANTIBIOTICS(if yes, consider Stewardship): Yes Social Issues FAMILY UPDATED: yes PT/OT: yes GOALS/DISPOSITION/VOICE COACH: yes CODE STATUS: DNR/DNI Prophylaxis DVT PROPHYLAXIS: yes GI PROPHYLAXIS: yes, Indication: Just starting a diet; evidence of GERD on CT Time Spent with Patient Time Spent with Patient: >50 minutes Time was spent: preparing to see the patient(eg.review tests), obtaining and/or reviewing separately otained hiistory, ordering medications,tests, procedures, referring, communicating with other health interior plant caretaker, indepentently interpreting results, counseling the patient and care coordination
[2022-09-17] MEDS: MEROPENEM 1 GM in Normal Saline 100 ML IVPB ×3 (08:59→17:28)
--- NOTE | 2022-09-17 09:04 | PDOC.CMPRO ---
Date of service: 09/17/22 Time of Service: 09:04 Care Management Progress Note Progress Note Text Progress Note Text: S/O: Blayne was lying in bed, sleeping when CM attempted to meet with him. Per RN, he is more oriented today and still very tired. RN noted that he was able to drink 2 glasses of water and stood up on his own. PT/OT evaluation is pending. Palliative met with patients family yesterday, daughter Ly was appointed to be his primary decision maker. COLST form was completed. Palliative will review with patient directly when he is awake and more clear. CM to request a coach builder consult when patient is capable of discussing treatment resources and options. Of note, Patient currently lives alone, his daughter Ly is planning on moving in with him in 1-2 months. If Blayne continues to improve medically, he may transition to MS status later this afternoon per M.D. CM will follow. A: 56 year old male admitted to [facility] on 09/15/22 for TULIO, DKA, Lactic acidosis P: Palliative was consulted, a COLST form was reviewed and completed by his designated decision maker which is his daughter Ly. Code status was changed to a DNR/DNI, Palliative provider to revisit COLST with Blayne when he is more clear. [facility] will be consulted. Awaiting PT/OT recommendations. CM will follow.
[2022-09-17] MEDS: Ondansetron 4 MG/2 ML VIAL IVP (09:07)
[2022-09-17] MEDS: Ketorolac 15 MG/ML VIAL IVP ×2 (09:09→19:26)
[2022-09-17] MEDS: Biotene Mouthwash 237 ML BTL MM ×2 (09:25→19:29)
--- NOTE | 2022-09-17 11:33 | W.DIABETESNO ---
Date of service: 09/17/22 Time of Service: 11:33 Diabetes Note Reason for Visit: Diabetes education consult request. NOTE: Consult acknowledged for diabetes education. Will revisit his educational needs when his clinical picture is more conducive to that discussion. Time Spent in Nutritional Counseling and Treatment: 0
[2022-09-17] MEDS: ACETAMINOPHEN 1,000 MG/100 ML BTL 400 MG IVPB (12:40)
[2022-09-17 12:44] LABS: BE (Venous) -1 mmol/L (-2-3); HCO3 (Venous) 24 mmol/L (23-28); O2 Sat (Venous) 85 %; TCO2 (Venous) 22 mmol/L (24-29); pCO2 (Venous) 42 mmHg (41-51); pH (Venous) 7.37 (7.31-7.41); pO2 (Venous) 46 mmHg
[2022-09-17 12:57] LABS: Anion Gap 9.6 mmol/L (3-11); BUN 6 mg/dL (7-18); CO2 24.4 mmol/L (21.0-32.0); CREATININE 1.3 mg/dL (0.70-1.30); Calcium 8.8 mg/dL (8.5-10.1); Chloride 108 mmol/L (98-107); Estimated GFR 64.88 (mL/min/1.73m2); Glucose 156 mg/dL (74-106); Magnesium 2.6 mg/dL (1.8-2.4); Potassium 4.3 mmol/L (3.5-5.1); Sodium 142 mmol/L (136-145)
--- NOTE | 2022-09-17 14:17 | CHAPLAIN ---
Pamela Rodriguez, RN, introduced me to Blayne's family in the waiting room. His daughter, mom, dad, stepmom and others were there. Blayne was sleeping. Pamela said they will see if he can get up around 4 p.m. to participate in PT, but she said he needs to rest now. Blayne's family met with Dr. Swift from Palliative Care yesterday and it was decided that Blayne's daughter, Ly, would be the medical decision maker for Blayne if he is not able to speak for himself. Lala and her two brothers, Anam and Jarett are being supported by their mom, Angeline, who is Blayne's exwife. Blayne's mom asked that we say a prayer for Blayne so I offered a prayer with his family. I will continue to visit.
--- NOTE | 2022-09-17 15:36 | SCONE_ITS ---
Date of service: 09/17/22 Time of Service: 15:38 Assessment and Plan Assessment and plan (1) Pancreatic pseudocyst: Status: Chronic Assessment and plan: I think it is unlikely that he has infected pancreatic necrosis. Especially in light of his improved leukocytosis, and the general response of his DKA and hemodynamics to a modest amount of resuscitation. However, he is still on some norepinephrine to support his blood pressure (with a MAP of 72 during my visit). Not regard, certainly there is no indication for emergent surgical debridement or pancreatic sampling. With regards to the pseudocyst proper, I do think it would benefit from drainage. By traditional measures, it has a few indications for intervention, specifically a size greater than 5 cm, growth and the maximal dimension over time, and failure to resolve with supportive measures. Furthermore, at least some portion of the pseudocyst seems to be present since 2018, and I suspect that has a mature cyst wall that would be amenable pseudocyst- gastrostomy drainage, which I think could be accomplished endoscopically. History of Present Illness History of Present Illness Chief Complaint: Nausea vomiting weakness; DKA; pancreatic pseudocyst Narrative: X56 years old and is known to have chronic pancreatitis. He came to the emergency department yesterday complaining of altered mental status (essentially confusion) with nausea and vomiting. He was found to have a blood sugar greater than 400 He was diagnosed with diabetic ketoacidosis. He was resuscitated with intravenous fluids and insulin, with favorable response. He also had hypotension, and leukocytosis to 18,000. He underwent a CAT scan of the abdomen and pelvis that demonstrated pancreatic pseudocyst that was slightly increased in size compared to previous. I was asked to see him with regards to his pancreatitis, and management of the pseudocyst. Review of Systems Narrative: I am unable to obtain an adequate review of systems because of his altered mental status [facility] All Active Problems Advanced care planning/counseling discussion (Acute) Palliative care encounter (Acute) Alcohol use disorder (Acute) Hypovolemic shock (Acute) DKA (diabetic ketoacidosis) (Acute) Normal anion gap metabolic acidosis (Acute) DVT prophylaxis (Acute) GERD without esophagitis (Acute) Elevated troponin I level (Acute) Chronic pancreatitis due to acute alcohol intoxication (Acute) Constipation (Acute) Pancreatitis (Acute) Diabetes (Acute) Hypertension (Acute) Pancreatic pseudocyst (Chronic) Alcohol intake above recommended sensible limits (Chronic) Essential hypertension (Chronic 01/10/13) Hyperlipidemia (Chronic 07/15/12) Male erectile disorder (Chronic) normal testosterone Rosacea (Chronic) Tobacco dependence due to chewing tobacco (Chronic) Onychomycosis (Chronic) on fingers and toes; declines to treat due to possible medication side effects. Anxiety disorder (Chronic) Hypomagnesemia (Acute) Hypokalemia (Acute) Thrombocytopenia (Acute) Uncontrolled type 2 diabetes mellitus with hyperglycemia, with long-term current use of insulin (Chronic) Medical History Acute pancreatitis (12/19/13) 12/20/13,11/04/17, 04/2022 Atrial fibrillation Stable. History during hospitalization in 2018, negative Zio patch for 48 hrs. Cerebellar lesion ruled out with MRI Depression a. inpatient admission Surgical History H/O arthroscopy of right knee Family History Grandfather , MD at age 54. Myocardial infarction Father Prostate cancer Grandfather Personal history of malignant neoplasm Social History Smoking/Tobacco Use Status: Former Tobacco Use Smokeless tobacco user: chewing tobacco Counseling given: provider counseling Smoking risk assessment performed?: Yes Alcohol Intake: current Alcohol Intake frequency: 3 or more drinks per day Drug use: Never Substance use type: does not use Details: no alcohol for 12+ days due to pancreatitis Household members: none Housing: other Number of Children: 3 Education Level: high school current occupation: Currently unemployed Pets and animals: Yes Pets and animals: dog(s) Sexually active: No What is your relationship status?: How often do you get together with friends or relatives?: once per week Panel score (0-1 are the most socially isolated patients): 0 What type of physical activity do you participate in: walking Do you feel safe at home: Yes Do you feel safe in your relationship?: Yes Exam Const General: no acute distress Nutritional Appearance: average body habitus Orientation: confused Limitations: altered mental status HENMT Head: normal to inspection Ears: hearing grossly normal bilaterally Neck Neck: normal visual inspection, no lymphadenopathy and trachea midline Thyroid: no masses Resp Effort & Inspection: normal respiratory effort Auscultation: clear to auscultation bilaterally GI Inspection: normal to inspection and non-distended Palpation: soft, no guarding, no hernias and tender (Minimal tenderness in the mid epigastric region) Percussion: normal to percussion Auscultation: normal bowel sounds Results Last Vital Signs Temp 98.2 F 09/17/22 12:10 Pulse 88 09/17/22 14:01 Resp 13 09/17/22 14:01 BP 85/55 L 09/17/22 14:01 Pulse Ox 97 09/17/22 11:46 Labs 09/17/22 06:30 09/17/22 12:21 Labs: Laboratory Results - last 24 hr 09/16/22 09/16/22 09/16/22 16:00 16:00 19:15 WBC RBC Hgb Hct MCV MCH MCHC RDW Plt Count MPV Immature Gran % Neutrophils % Lymphocytes % Monocytes % Eosinophils % Basophils % Nucleated RBC % Absolute Neutrophils Absolute Lymphocytes Absolute Monocytes Absolute Eosinophils Absolute Basophils VBG pH 7.34 VBG pCO2 33 L VBG pO2 22 VBG HCO3 18 L VBG Total CO2 17 L VBG O2 Saturation 50 VBG Base Excess -8 L Sodium 145 149 H Potassium 2.8 L* D 2.3 L* Chloride 112 H 118 H Carbon Dioxide 18.6 L 20.0 L Anion Gap 14.4 H 11.0 BUN 14 10 Creatinine 1.2 1.0 Est GFR (CKD-EPI 2020) 71.42 88.88 Glucose 159 H 60 L Calcium 7.4 L 6.3 L* Magnesium Total Bilirubin Conjugated Bilirubin AST ALT Alkaline Phosphatase C-Reactive Protein Total Protein Albumin Add-On Test Request 09/16/22 09/16/22 09/16/22 19:15 21:15 21:15 WBC RBC Hgb Hct MCV MCH MCHC RDW Plt Count MPV Immature Gran % Neutrophils % Lymphocytes % Monocytes % Eosinophils % Basophils % Nucleated RBC % Absolute Neutrophils Absolute Lymphocytes Absolute Monocytes Absolute Eosinophils Absolute Basophils VBG pH 7.36 7.41 VBG pCO2 32 L 35 L VBG pO2 32 36 VBG HCO3 18 L 22 L VBG Total CO2 17 L 20 L VBG O2 Saturation 71 79 VBG Base Excess -7 L -3 L Sodium 144 Potassium 3.8 D Chloride 109 H Carbon Dioxide 23.3 Anion Gap 11.7 H BUN 12 Creatinine 1.2 Est GFR (CKD-EPI 2020) 71.42 Glucose 98 Calcium 8.5 Magnesium Total Bilirubin Conjugated Bilirubin AST ALT Alkaline Phosphatase C-Reactive Protein Total Protein Albumin Add-On Test Request 09/17/22 09/17/22 09/17/22 03:11 06:30 06:30 WBC 7.92 RBC 3.11 L Hgb 10.6 L D Hct 30.6 L MCV 98 H D MCH 34.1 H MCHC 34.6 RDW 12.7 Plt Count 160 MPV 10.3 Immature Gran % 0.4 Neutrophils % 66.6 Lymphocytes % 25.6 Monocytes % 6.8 Eosinophils % 0.3 Basophils % 0.3 Nucleated RBC % 0.0 Absolute Neutrophils 5.28 Absolute Lymphocytes 2.03 Absolute Monocytes 0.54 Absolute Eosinophils 0.02 Absolute Basophils 0.02 VBG pH VBG pCO2 VBG pO2 VBG HCO3 VBG Total CO2 VBG O2 Saturation VBG Base Excess Sodium Cancelled 144 Potassium Cancelled 3.3 L Chloride Cancelled 110 H Carbon Dioxide Cancelled 25.7 Anion Gap Cancelled 8.3 BUN Cancelled 8 Creatinine Cancelled 1.2 Est GFR (CKD-EPI 2020) Cancelled 71.42 Glucose Cancelled 131 H Calcium Cancelled 8.7 Magnesium 1.6 L Total Bilirubin 0.4 Conjugated Bilirubin 0.1 AST 38 H ALT 22 Alkaline Phosphatase 189 H C-Reactive Protein 3.39 H Total Protein 6.0 L Albumin 2.3 L Add-On Test Request 09/17/22 09/17/22 09/17/22 07:11 12:21 12:22 WBC RBC Hgb Hct MCV MCH MCHC RDW Plt Count MPV Immature Gran % Neutrophils % Lymphocytes % Monocytes % Eosinophils % Basophils % Nucleated RBC % Absolute Neutrophils Absolute Lymphocytes Absolute Monocytes Absolute Eosinophils Absolute Basophils VBG pH 7.37 VBG pCO2 42 VBG pO2 46 VBG HCO3 24 VBG Total CO2 22 L VBG O2 Saturation 85 VBG Base Excess -1 Sodium Cancelled 142 Potassium Cancelled 4.3 D Chloride Cancelled 108 H Carbon Dioxide Cancelled 24.4 Anion Gap Cancelled 9.6 BUN Cancelled 6 L Creatinine Cancelled 1.3 Est GFR (CKD-EPI 2020) Cancelled 64.88 Glucose Cancelled 156 H Calcium Cancelled 8.8 Magnesium 2.6 H Total Bilirubin Conjugated Bilirubin AST ALT Alkaline Phosphatase C-Reactive Protein Total Protein Albumin Add-On Test Request 09/17/22 Unknown WBC RBC Hgb Hct MCV MCH MCHC RDW Plt Count MPV Immature Gran % Neutrophils % Lymphocytes % Monocytes % Eosinophils % Basophils % Nucleated RBC % Absolute Neutrophils Absolute Lymphocytes Absolute Monocytes Absolute Eosinophils Absolute Basophils VBG pH VBG pCO2 VBG pO2 VBG HCO3 VBG Total CO2 VBG O2 Saturation VBG Base Excess Sodium Potassium Chloride Carbon Dioxide Anion Gap BUN Creatinine Est GFR (CKD-EPI 2020) Glucose Calcium Magnesium Total Bilirubin Conjugated Bilirubin AST ALT Alkaline Phosphatase C-Reactive Protein Total Protein Albumin Add-On Test Request TNP Imaging Abdomen CT scan report/results: report reviewed and image reviewed CT scan - pelvis: report reviewed and image reviewed
--- NOTE | 2022-09-17 17:11 | PT.INIE ---
Date of service: 09/17/22 Time of Service: 16:20 PT Notes Visit Reasons: DKA Physical Therapy Inpatient Initial Evaluation Date: 09/17/2022 Referring Doctor: Yady Sargent MD PT Orders: PT CONSULT: Limited ability Precautions: Fall. Standard. Activity as tolerated. Patient Profile/Admitting Diagnosis: Dino is a 56-year-old male who presented to the ED on 09/15/2022 due to altered mental status. Patient is admitted to the ICU for management of diabetic acidosis (now resolved), septic shock (now resolved), high anion gap metabolic acidosis (now resolved), and lactic acidosis(now resolved), pancreatic pseudogout, elevated troponin, atrial fibrillation, uncontrolled type 2 diabetes mellitus, chronic pancreatitis due to EtOH intoxication, hypertension, GERD, and EtOH disorder. PMHX: All Active Problems?(Updated 09/16/22 @ 12:52 by Yady Sargent MD) Heller Toxic metabolic encephalopathy (Acute) Septic shock (Acute) Alcohol use disorder (Acute) Hypovolemic shock (Acute) DKA (diabetic ketoacidosis) (Acute) Normal anion gap metabolic acidosis (Acute) DVT prophylaxis (Acute) GERD without esophagitis (Acute) Neutrophilic leukocytosis (Acute) Elevated troponin I level (Acute) TULIO (acute kidney injury) (Acute) Chronic pancreatitis due to acute alcohol intoxication (Acute) High anion gap metabolic acidosis (Acute) Diabetic acidosis, type I (Acute) Constipation (Acute) Pancreatitis (Acute) Diabetes (Acute) Hypertension (Acute) Pancreatic pseudocyst (Chronic) Alcohol intake above recommended sensible limits (Chronic) Essential hypertension (Chronic 01/10/13) Hyperlipidemia (Chronic 07/15/12) Male erectile disorder (Chronic) normal testosterone Rosacea (Chronic) Tobacco dependence due to chewing tobacco (Chronic) Onychomycosis (Chronic) on fingers and toes; declines to treat due to possible medication side effects. Anxiety disorder (Chronic) Hypomagnesemia (Acute) Hypokalemia (Acute) Thrombocytopenia (Acute) Uncontrolled type 2 diabetes mellitus with hyperglycemia, with long-term current use of insulin (Chronic) Medical History?(Updated 09/16/22 @ 12:52 by Yady Sargent MD) Acute pancreatitis (12/19/13) 12/20/13,11/04/17, 04/2022 Atrial fibrillation Stable.? History during hospitalization in 2018, negative Zio patch for 48 hrs. Cerebellar lesion ruled out with MRI Depression a.? inpatient admission Surgical History? H/O arthroscopy of right knee Social History/Home Situation: Lives in a private home with 4 steps to enter with rails on both sides. 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 Independent with all aspects of ADLs prior to admission. Equipment Owned/DME: None Subjective: I just want to rest for now, am so tired. However, agreeable to in room ambulation using front-wheeled walker. Denies chest pain, headache, and lightheadedness throughout session. Objective: General Observation: Resting in bed. Central line in place. Telemetry monitoring in place. Nurse Pamela present throughout session. Mental Status: Drowsy but engageable. Oriented as to person, place, time, and purpose. Able to pay attention, focus, and respond appropriately. Pain: Denies Vital Signs: Blood pressure better during session ROM: Right Upper Extremity: Shoulder Flexion allows up to about 100 degrees. Shoulder abduction allows up to about 90 degrees L. Elbow flexion WFL. Wrist flexion WFL. Functional opening and closing of hand WFL. Left Upper Extremity: Shoulder Flexion allows up to about 100 degrees. Shoulder abduction allows up to about 90 degrees L. Elbow flexion WFL. Wrist flexion WFL. Functional opening and closing of hand WFL. Right Lower Extremity: Hip flexion lacks the last 50% of available AROM due to weakness. Hip abduction lacks the last 50% of available AROM due to weakness. Knee flexion WFL. Ankle dorsiflexion to neutral only. Ankle plantarflexion WFL. Left Lower Extremity: Hip flexion lacks the last 50% of available AROM due to weakness. Hip abduction lacks the last 50% of available AROM due to weakness. Knee flexion WFL. Ankle dorsiflexion to neutral only. Ankle plantarflexion WFL. Strength: Right Upper Extremity: Shoulder flexors 3-/5. Shoulder abductors 3-/5. Elbow flexors 4-/5. Elbow extensors 4-/5. Envelope Stamping Machine Operator strong. Left Upper Extremity: Shoulder flexors 3-/5. Shoulder abductors 3-/5. Elbow flexors 4-/5. Elbow extensors 4-/5. Envelope Stamping Machine Operator strong. Right Lower Extremity: Hip flexors 3-/5. Hip abductors 3-/5. Knee flexors 4-/5. Knee extensors 4-/5. Ankle dorsiflexors 3-/5. Ankle plantarflexors 4-/5. Left Lower Extremity: Hip flexors 3-/5. Hip abductors 3-/5. Knee flexors 4-/5. Knee extensors 4-/5. Ankle dorsiflexors 3-/5. Ankle plantarflexors 4-/5. Bed Mobility/Transfers: Supine to sit standby assist Sit to stand contact-guard assist using FWW Stand to sit contact-guard assist using FWW Bed to reclining chair contact-guard assist using FWW Gait: Instructed patient with level surface ambulation of 12 feet + 15 feet requiring minimal assist with stand by assist as well as IV pole management of Nurse Pamela. Kathleen decreased. Step height decreased. Step length decreased. Reported fatigue with short distance ambulation. No LOB. Mild SOB noted. Balance: Static Sitting: Normal Dynamic Sitting: Normal Static Standing: Fair Dynamic Standing: Fair Special Tests: Mobility Limitations Standardized Measure [facility] AM-PAC 6 clicks Basic Mobility Inpatient Short Form: Raw Score: 12 CMS Score: 69% deficit Informed Consent/Education: Patient was instructed in purpose of PT consult and plan of care. Agreeable to proceed with established PT POC to achieve personal goals. Assessment: Patient demonstrates functional mobility decline requiring the use of a FWW and the assistance of 1 person for all mobility ADL performance to reduce fall risk. Patient presents with clinical signs and symptoms consistent with current/admitting diagnoses that have resulted to mobility limitations, gait instability, generalized weakness, and overall ADL decline as demonstrated by the following impairment level findings: 1. Decreased strength to B UE/LE major muscle groups 2. Impaired sitting/standing balance 3. Impaired activity tolerance 4. Limitation of joint range of motion in B shoulders and hips 5. Fatigue Impairments are contributing to the following functional limitations: 1. Decline in bed mobility skills 2. Decline in transfer skills 3. Difficulty with ambulation without assistive device and physical assistance 4. Increased completion time for mobility ADL performance 5. Increased risk for falls 6. Difficulty with managing steps alone safely Patient is assessed as a 92284 moderate complexity based on the following: History: 56-year-old female with past medical history as indicated above Examination: Demonstrable impairment in strength, balance, and mobility level with underlying impairments and functional limitations as exhibited above as well as deficit score of 69% utilizing the [facility] Mobility Inpatient Short Form Presentation: Evolving Decision Makin moderate complexity Goals: Goals X1 week 1. Supine-Sit independent 2. Sit-Supine independent 3. Sit-Stand independent 4. Stand-Sit independent with FWW 5. Bed-Chair independent with FWW 6. Chair-Bed independent with FWW 7. Independent gait on level surface with use of FWW for at least 300 feet without report of pain nor dyspnea 8. Independent stair negotiation while holding onto B rails for at least 5 steps without report of pain nor dyspnea 9. Independent with home exercise program 10. Good static and dynamic standing balance/tolerance Plan of Care/Treatment Plan: 1-2x/day, 7 days/week x 1 week. Plan of care has been reviewed with the ASSEMBLER PIANO providing the service under Physical Therapy direction. Initiate Physical Therapy intervention for pain management as needed, strengthening, bed mobility, transfers, gait, stairs, balance training, and use of assistive device. DISCHARGE RECOMMENDATIONS: [] Home with no services [] [X] Home with services. Patient will benefit from home health PT services in order to progress mobility level using least restrictive assistive ambulatory device, assess home safety, identify additional equipment needs, and establish a functional maintenance program that will increase ability of patient to remain at home. [] Home with outpatient PT [] [] SNF for continued rehabilitation [] [] [facility] [] [] SNF versus LTC based on ability to participate and progress [] TREATMENT CODE/TIME: 92062 x 20 minutes, 46503 x 19 minutes beginning at 16:20 PM. Thank you for the opportunity to participate in the care of this patient. Ann Anderson PT, DPT, CLT [facility] [place], [place]
[2022-09-17 18:09] LABS: Ionized Calcium 1.15 mmol/L (1.14-1.35)
[2022-09-17] MEDS: Insulin Aspart 300 UNITS/3 ML PEN SC ×2 (18:18→19:42)
[2022-09-17 18:51] LABS: BE (Venous) -2 mmol/L (-2-3); HCO3 (Venous) 24 mmol/L (23-28); O2 Sat (Venous) 91 %; TCO2 (Venous) 22 mmol/L (24-29); pCO2 (Venous) 42 mmHg (41-51); pH (Venous) 7.36 (7.31-7.41); pO2 (Venous) 57 mmHg
[2022-09-17 19:04] LABS: Anion Gap 7.9 mmol/L (3-11); BUN 6 mg/dL (7-18); CO2 24.1 mmol/L (21.0-32.0); CREATININE 1.2 mg/dL (0.70-1.30); Calcium 8.3 mg/dL (8.5-10.1); Chloride 106 mmol/L (98-107); Estimated GFR 71.42 (mL/min/1.73m2); Potassium 3.6 mmol/L (3.5-5.1); Sodium 138 mmol/L (136-145)
[2022-09-17 19:26] LABS: Glucose 508 mg/dL (74-106)
[2022-09-17 22:03] LABS: Streptococcus Pneumoniae Ag, U Negative (Negative)
[2022-09-17] MEDS: Enoxaparin 40 MG/0.4 ML SYR SC (22:45)
[2022-09-17] MEDS: metroNIDAZOLE 0.75% CR. 45 GM TUBE TP (22:45)
[2022-09-17] MEDS: Pantoprazole 40 MG VIAL IVP (23:46)
[2022-09-18] VITALS (69 sets, daily range): BP systolic 70–126; BP diastolic 39–85; PULSE 66–118; RESP 0–24; TEMP 36.1–36.5; O2SAT 87–97
[2022-09-18] MEDS: DEXTROSE 5%-0.45% SALINE 1,000 ML 150 ML IV (00:13)
[2022-09-18] MEDS: ACETAMINOPHEN 1,000 MG/100 ML BTL 400 MG IVPB ×2 (00:14→14:01)
[2022-09-18] MEDS: MEROPENEM 1 GM in Normal Saline 100 ML IVPB ×4 (00:14→23:42)
[2022-09-18] MEDS: Ketorolac 15 MG/ML VIAL IVP ×3 (02:37→19:54)
[2022-09-18] MEDS: THIAMINE 500 MG in Normal Saline 100 ML 200 MG IVPB ×3 (02:56→17:36)
--- NOTE | 2022-09-18 06:52 | PUCC_ITS ---
General Date of Service Date of service: 09/18/22 Time of Service: 06:52 Reason for Admission to ICU: DKA Assessment and Plan Assessment and plan (1) DKA (diabetic ketoacidosis): Status: Acute (2) Hypovolemic shock: Status: Acute (3) High anion gap metabolic acidosis: Status: Resolved (4) Pancreatic necrosis: Status: Acute (5) Elevated troponin I level: Status: Acute (6) TULIO (acute kidney injury): Status: Resolved (7) Normal anion gap metabolic acidosis: Status: Acute (8) Pancreatic pseudocyst: Status: Chronic (9) Lactic acidosis: Status: Resolved (10) Neutrophilic leukocytosis: Status: Resolved (11) Chronic pancreatitis due to acute alcohol intoxication: Status: Acute (12) Hypomagnesemia: Status: Acute (13) Alcohol use disorder: Status: Acute Assessment and plan: This is a 56 yo with type 1 diabetes admitted to the ICU for DKA. There is no clear UTI, cellulitis or pneumonia. He does have a growing pseudocyst, however GI and surgery are on board and do not find any urgency in dealing with it. Now that he is able to have a conversation it is clear the cause of his DKA was non compliance. His repeat procal today is negative and he does not appear toxic. I do not think his hypotension was related to sepsis. I would recommend stopping the meropenem. He is off pressors this morning and doing well. His POCUS shows no evidence for needing additional fluid and I would recommend he start a diabetic diet. His POCUS does show a borderline EF with no focal hypokinetic areas. He got an echo completed but the read seems to still be pending. His abdominal ultrasound does show pancreatic necrosis and he will need GI follow up and an outpatient. Recommendations Pulmonary: No acute concerns Cardiac: Hypovolemic shock, resolved - s/p resuscitation - no more fluids needed - norepinephrine no longer needed - if able to avoid pressor re-initiation can remove central line and change to med-surg status Elevated troponin - no longer rising, non ischemic EKG - due to demand - no need to continue trending unless clinic change Borderline EF on POCUS - await confirmation from echo Renal: TULIO, improved - likely pre-renal from DKA AGMA and NAGMA - resolved Lactic acidosis - improved Hypomagnesemia - replete to 2 I&O: Intake & Output 09/15/22 09/16/22 09/17/22 09/18/22 23:59 23:59 23:59 23:59 Intake Total 5509.000 / 5509.000 6428.457 / 6430.457 6124.336 / 6124.336 200 / 2 00 Output Total 3350 / 3350 4460 / 4560 2600 / 2600 Balance 2159.000 / 2159.000 1968.457 / 2538.049 9163.336 / 3524.336 200 / 200 Weight 87.5 kg 93 kg Daily Fluid Goal:: even GI Nutrition: Nutrition - recommend diabetic diet Growing pseudocyst - outpatient GI follow up - surgery has been consulted - on meropenem - recommend it be discontinued Acute on Chronic pancreatitis with pancreatic necrosis - as above Infectious Disease: As above Hematologic: Leukocytosis, resolved - will continue to monitor Neurologic: Alcohol use disorder - s/p first loading dose of phenobarb - monitor and give boluses as needed for signs of withdrawl - on MVI, folate and thiamine Endocrine: DKA - resolved Lines: R IJ CVC - consider removal after PIV placement and no need for pressors Daniels Prophylaxis: Lovenox Protonix Code Status: Resuscitation Status DNR/DNI Subjective Critical and life-threatening events over the past 24 hours: Blayne is looking much better today. He is awake and conversant. In further discussion with him, he states he does not take insulin everyday as prescribed. He will use Jardiance some days and insulin on other days. The cause of his DKA certainly seems to be non compliance. He is hungry today. His glucose did jump up so I discontinued the D51/2NS. Exam Narrative Exam Narrative: Gen: NAD, normal respiratory effort, well-nourished HENT: PERRL Chest: No respiratory distress, normal appearance of chest, clear to auscultation bilaterally, no crackles or wheezes, normal inspiratory effort Heart: regular rate and rhythym, no murmurs, rubs or gallops Abdomen: Non-distended, soft, non tender Extremities: No clubbing, edema, cyanosis. spider telangiectasias on legs and abdomen Neuro: non participatory Psych: non participatory Most Recent VS/Results Last Vital Signs Temp 36.5 C 09/17/22 20:00 Pulse 98 H 09/17/22 22:01 Resp 16 09/17/22 22:01 BP 97/75 L 09/17/22 22:01 Pulse Ox 98 09/17/22 20:31 Laboratory Results - last 24 hr 09/17/22 09/17/22 09/17/22 03:11 06:30 06:30 WBC 7.92 RBC 3.11 L Hgb 10.6 L D Hct 30.6 L MCV 98 H D MCH 34.1 H MCHC 34.6 RDW 12.7 Plt Count 160 MPV 10.3 Immature Gran % 0.4 Neutrophils % 66.6 Lymphocytes % 25.6 Monocytes % 6.8 Eosinophils % 0.3 Basophils % 0.3 Nucleated RBC % 0.0 Absolute Neutrophils 5.28 Absolute Lymphocytes 2.03 Absolute Monocytes 0.54 Absolute Eosinophils 0.02 Absolute Basophils 0.02 VBG pH VBG pCO2 VBG pO2 VBG HCO3 VBG Total CO2 VBG O2 Saturation VBG Base Excess Sodium Cancelled 144 Potassium Cancelled 3.3 L Chloride Cancelled 110 H Carbon Dioxide Cancelled 25.7 Anion Gap Cancelled 8.3 BUN Cancelled 8 Creatinine Cancelled 1.2 Est GFR (CKD-EPI 2020) Cancelled 71.42 Glucose Cancelled 131 H Calcium Cancelled 8.7 Magnesium 1.6 L Total Bilirubin 0.4 Conjugated Bilirubin 0.1 AST 38 H ALT 22 Alkaline Phosphatase 189 H C-Reactive Protein 3.39 H Total Protein 6.0 L Albumin 2.3 L Add-On Test Request 09/17/22 09/17/22 09/17/22 07:11 12:21 12:22 WBC RBC Hgb Hct MCV MCH MCHC RDW Plt Count MPV Immature Gran % Neutrophils % Lymphocytes % Monocytes % Eosinophils % Basophils % Nucleated RBC % Absolute Neutrophils Absolute Lymphocytes Absolute Monocytes Absolute Eosinophils Absolute Basophils VBG pH 7.37 VBG pCO2 42 VBG pO2 46 VBG HCO3 24 VBG Total CO2 22 L VBG O2 Saturation 85 VBG Base Excess -1 Sodium Cancelled 142 Potassium Cancelled 4.3 D Chloride Cancelled 108 H Carbon Dioxide Cancelled 24.4 Anion Gap Cancelled 9.6 BUN Cancelled 6 L Creatinine Cancelled 1.3 Est GFR (CKD-EPI 2020) Cancelled 64.88 Glucose Cancelled 156 H Calcium Cancelled 8.8 Magnesium 2.6 H Total Bilirubin Conjugated Bilirubin AST ALT Alkaline Phosphatase C-Reactive Protein Total Protein Albumin Add-On Test Request 09/17/22 09/17/22 09/17/22 18:35 18:35 Unknown WBC RBC Hgb Hct MCV MCH MCHC RDW Plt Count MPV Immature Gran % Neutrophils % Lymphocytes % Monocytes % Eosinophils % Basophils % Nucleated RBC % Absolute Neutrophils Absolute Lymphocytes Absolute Monocytes Absolute Eosinophils Absolute Basophils VBG pH 7.36 VBG pCO2 42 VBG pO2 57 VBG HCO3 24 VBG Total CO2 22 L VBG O2 Saturation 91 VBG Base Excess -2 Sodium 138 Potassium 3.6 Chloride 106 Carbon Dioxide 24.1 Anion Gap 7.9 BUN 6 L Creatinine 1.2 Est GFR (CKD-EPI 2020) 71.42 Glucose 508 H* Calcium 8.3 L Magnesium Total Bilirubin Conjugated Bilirubin AST ALT Alkaline Phosphatase C-Reactive Protein Total Protein Albumin Add-On Test Request TNP Review of Systems All systems reviewed & are unremarkable except as noted in HPI and below Time spent with patient Time spent in Critical Care: 45 Time spent in Critical care included: Chart review, Documenting critically ill care, Time at immediate bedside and Discussing critically ill care with other medical staff Pocus Exam Limited Cardiac Exam DATE OF EXAM: 09/18/22 TIME OF EXAM: 08:00 PROVIDER THAT PERFORMED THE STUDY: Adelia Almodovar IS THIS A REPEAT EXAM DURING THIS ENCOUNTER: no REASON FOR EXAM: Hypotension VISUALIZED STRUCTURES: four chambers, LVOT, aortic valve, Interventricular septum and IVC VIEW OBTAINED: Apical 4-Chamber, Parasternal long-axis, Parasternal short-axis and Subxiphoid PERTINENT FINDINGS/IMPRESSION: LV dysfunction :mild; no IVC inspiratory collapsability Exam complete
--- NOTE | 2022-09-18 07:00 | W.PM.PROGNOT ---
Date of Service Date of service: 09/18/22 Time of Service: 07:00 Assessment and Plan Assessment and plan (1) Pancreatic pseudocyst: Status: Chronic Assessment and plan: Pleasantly confused, having difficulty following the conversation at times. Denies abdominal pain. Eagerly awaiting breakfast On Norepi for BP support Central Line in Right IJ Urinating without difficulty. Continue with medical management at this time. This is much more alert today, and he seems comfortable. He is tolerating some food without any nausea or vomiting. I do not think there is any advantage to any emergent surgical intervention at this point. I do still think he should be given strong consideration for gastric drainage of his pancreatic pseudocyst. Subjective Subjective Interval history since last seen: Arrived with patient resting comfortably in bed. He is pleasantly confused and does not recall how he came to the hospital and was admitted. He denies having any abdominal pain nausea or vomiting. He expresses that he is very hungry this morning. Exam Const General: cooperative and comfortable Orientation: alert and awake Resp Effort & Inspection: normal respiratory effort, no audible wheezes and no cough GI Inspection: normal to inspection Palpation: soft, no guarding and nontender Auscultation: normal bowel sounds Objective Last Vital Signs Temp 36.5 C 09/17/22 20:00 Pulse 98 H 09/17/22 22:01 Resp 16 09/17/22 22:01 BP 97/75 L 09/17/22 22:01 Pulse Ox 98 09/17/22 20:31 Laboratory Results - last 24 hr 09/17/22 09/17/22 09/17/22 06:30 07:11 12:21 VBG pH VBG pCO2 VBG pO2 VBG HCO3 VBG Total CO2 VBG O2 Saturation VBG Base Excess Sodium 144 Cancelled 142 Potassium 3.3 L Cancelled 4.3 D Chloride 110 H Cancelled 108 H Carbon Dioxide 25.7 Cancelled 24.4 Anion Gap 8.3 Cancelled 9.6 BUN 8 Cancelled 6 L Creatinine 1.2 Cancelled 1.3 Est GFR (CKD-EPI 2020) 71.42 Cancelled 64.88 Glucose 131 H Cancelled 156 H Calcium 8.7 Cancelled 8.8 Magnesium 1.6 L 2.6 H Total Bilirubin 0.4 Conjugated Bilirubin 0.1 AST 38 H ALT 22 Alkaline Phosphatase 189 H C-Reactive Protein 3.39 H Total Protein 6.0 L Albumin 2.3 L Add-On Test Request 09/17/22 09/17/22 09/17/22 12:22 18:35 18:35 VBG pH 7.37 7.36 VBG pCO2 42 42 VBG pO2 46 57 VBG HCO3 24 24 VBG Total CO2 22 L 22 L VBG O2 Saturation 85 91 VBG Base Excess -1 -2 Sodium 138 Potassium 3.6 Chloride 106 Carbon Dioxide 24.1 Anion Gap 7.9 BUN 6 L Creatinine 1.2 Est GFR (CKD-EPI 2020) 71.42 Glucose 508 H* Calcium 8.3 L Magnesium Total Bilirubin Conjugated Bilirubin AST ALT Alkaline Phosphatase C-Reactive Protein Total Protein Albumin Add-On Test Request 09/17/22 Unknown VBG pH VBG pCO2 VBG pO2 VBG HCO3 VBG Total CO2 VBG O2 Saturation VBG Base Excess Sodium Potassium Chloride Carbon Dioxide Anion Gap BUN Creatinine Est GFR (CKD-EPI 2020) Glucose Calcium Magnesium Total Bilirubin Conjugated Bilirubin AST ALT Alkaline Phosphatase C-Reactive Protein Total Protein Albumin Add-On Test Request TNP Time Spent with Patient Time Spent with Patient: <25 minutes Time was spent: preparing to see the patient(eg.review tests), counseling the patient and care coordination
[2022-09-18 07:14] LABS: ALT 18 U/L (16-63); AST 30 U/L (15-37); Albumin 2.2 g/dL (3.4-5.0); Alkaline Phosphatase 188 U/L (46-116); Anion Gap 7.1 mmol/L (3-11); BUN 4 mg/dL (7-18); Bilirubin, Direct 0.2 mg/dL (0.0-0.2); Bilirubin, Total 0.4 mg/dL (0.2-1.0); C-Reactive Protein 2.22 mg/dL (0.0-0.3); CO2 26.9 mmol/L (21.0-32.0); CREATININE 0.9 mg/dL (0.70-1.30); Calcium 8.5 mg/dL (8.5-10.1); Chloride 109 mmol/L (98-107); Estimated GFR 100.86 (mL/min/1.73m2); Glucose 203 mg/dL (74-106); Magnesium 1.9 mg/dL (1.8-2.4); Potassium 3.2 mmol/L (3.5-5.1); Sodium 143 mmol/L (136-145); Total Protein 5.7 g/dL (6.4-8.2)
[2022-09-18 07:30] LABS: Procalcitonin 0.1 ng/mL
--- NOTE | 2022-09-18 08:00 | RT.EKG_ITS ---
APPROVED REPORT Exam: Resting ECG Reason for Exam: irregular rhythm Patient Location: I HR:82 bpm ECG Measurements Heart Rate 82 AXIS MS [id number] P [id number] QRSd 99 QRS 10 QT 408 T 30 QTc 477 Conclusion Atrial fibrillation...V-rate 59- 87, irreg A-activity Ventricular premature complex...V complex w/ short R-R interval Low voltage, precordial leads...precordial leads <1.0mV
[2022-09-18 08:01] LABS: Abs Immature Grans 0.02 10^3/uL (0.0-0.06); Absolute Basophil Count 0.06 10^3/uL (0.0-0.2); Absolute Eosinophil Count 0.06 10^3/uL (0.0-0.7); Absolute Lymphocyte Count 2.77 10^3/uL (1.2-3.4); Absolute Monocyte Count 0.41 10^3/uL (0.1-0.8); Absolute Neutrophil Count 2.74 10^3/uL (1.2-6.7); HCT 34.6 % (40.0-50.0); HGB 11.8 g/dL (13.5-17.5); Immature Grans % 0.3; Lymphocytes % 45.7; MCHC 34.1 % (32.0-36.0); MCV 100 fL (80-95); MPV 10.7 fL (8.0-11.0); Monocytes % 6.8; Neutrophils % 45.2; Platelet Count 184 10^3/uL (130-400); RBC 3.47 10^6/uL (4.36-5.78); RDW 13.2 % (11.8-14.1); RDW-SD 48.3 fL; WBC 6.06 10^3/uL (4.4-10.8)
--- NOTE | 2022-09-18 09:09 | PT.INTREAT ---
PT Notes Visit Reasons: DKA Inpatient Physical Therapy Treatment Note [facility] Date: 09/18/22 SUBJECTIVE: Pt reports that he is tired and would like to just rest. Nursing did speak with him and he was agreable to PT after that. OBJECTIVE: Supine-sit: SBA Sit-stand: SBA/CGA Stand-sit: SBA/CGA GAIT Assistive Device: FWW Weight bearing: Full Assist: CGA Distance: 20ft x 2 THEREX: Seated LAQ x 10 B, hip abd x 10, shoulder flex x 10, horz abd x 10, cw/ccw x 10 B. ASSESSMENT: Pt tolerated today's session fairly well no LOB with ambulation just slow with movements. Pt experienced some dizziness with supine to sit but it resolved quickly. PLAN: Cont as per PT POC. TREATMENT CODE/TIME: 8:30-8:55 (25) JUAN NERI
--- NOTE | 2022-09-18 09:45 | OT.INIE ---
Occupational Therapy Notes Inpatient Occupational Therapy Evaluation Date: 09/18/22 Referring Doctor:Yady Sargent MD OT Orders: Non Urgent Precautions: Fall, Standard, DNR/DNI PATIENT PROFILE/ADMITTING DIAGNOSIS: Pt is a 56 year old male who was admitted through the ED. He states that he doesn't remember coming. His clinical impression at the time was a dx of ?Pancreatic pseudocyst, Diabetic acidosis, type I. He was admitted into the ICU for the following dx of pancreatic necrosis, toxic metabolic encephalopathy, septic shock, alcohol use disorder, hypovelemic shock, DKA, normal anion gap metabolic acidosis, GERD, elevated troponin I level, TULIO, chornic pancreatitis d/t alcohol intoxication. Past Medical History: All Active Problems?(Updated 09/16/22 @ 12:52 by Yady Sargent MD) Toxic metabolic encephalopathy (Acute) Septic shock (Acute) Alcohol use disorder (Acute) Hypovolemic shock (Acute) DKA (diabetic ketoacidosis) (Acute) Normal anion gap metabolic acidosis (Acute) DVT prophylaxis (Acute) GERD without esophagitis (Acute) Neutrophilic leukocytosis (Acute) Elevated troponin I level (Acute) TULIO (acute kidney injury) (Acute) Chronic pancreatitis due to acute alcohol intoxication (Acute) High anion gap metabolic acidosis (Acute) Diabetic acidosis, type I (Acute) Constipation (Acute) Pancreatitis (Acute) Diabetes (Acute) Hypertension (Acute) Pancreatic pseudocyst (Chronic) Alcohol intake above recommended sensible limits (Chronic) Essential hypertension (Chronic 01/10/13) Hyperlipidemia (Chronic 07/15/12) Male erectile disorder (Chronic) normal testosterone Rosacea (Chronic) Tobacco dependence due to chewing tobacco (Chronic) Onychomycosis (Chronic) on fingers and toes; declines to treat due to possible medication side effects.Anxiety disorder (Chronic) Hypomagnesemia (Acute) Hypokalemia (Acute) Thrombocytopenia (Acute) Uncontrolled type 2 diabetes mellitus with hyperglycemia, with long-term current use of insulin (Chronic) Medical History?(Updated 09/16/22 @ 12:52 by Yady Sargent MD) Acute pancreatitis (12/19/13) 12/20/13,11/04/17, trial fibrillation Stable.? History during hospitalization in 2018, negative Zio patch for 48 hrs.Cerebellar lesion ruled out with MRIDepression a.? inpatient admission Surgical History? H/O arthroscopy of right knee Social History/Home Situation: Pt lives in a private home. He notes that he worked years for the [employer] and then retired from there. He has worked jobs off and on since. He states that at his baseline level of function that he is (I). He drives (I) and has a walk in shower. He does have children who he stays in contact with. He notes that he is doing much better today and feels that functionally he can perform his ADLs/IADLS similar to his baseline level of function. Equipment owned/DME: None at baseline SUBJECTIVE: Pt was sitting in chair when OT arrived. He reports that he is feeling better today and reports that he is tired but improving. OBJECTIVE: General Observation: [Telemetry, IV placement in neck Mental Status: A&Ox4 Pain: c/o pain in lower abdomen which he notes comes and goes ROM: RUE AROM WFL L UE AROM WFL STRENGTH: RUE 5/5 throughout LUE 5/5 throughout FUNCTIONAL MOBILITY/ADLS: Transfers without (A) device BATHING Not performed with OT today but SANDING SUPERVISOR was setting pt up at sink to perform Bathing UE AROM pt is able to perform (I) without restrictions Bathing LE AROM pt is able to perform (I) without restrictions DRESSING seated in chair Dressing LE (I) don and doffing (B) socks with increased performance time EATING seated (I) with appropriate use of silverware. BALANCE: Static sitting Normal Dynamic Sitting Normal SPECIAL TESTS: Daily Activity Limitations Standardized Measure [facility] AM -PAC ?6 clicks? Daily Activity Inpatient Short Form: Raw score: 23 Standardized score: 51.12 CMS score: 15.85% INFORMED CONSENT/EDUCATION: Pt instructed in purpose of OT Consult and plan of care. ASSESSMENT: Patient is a 56-year-old male referred to occupational therapy services with diagnosis of Pancreatic pseudocyst, Diabetic acidosis, type I. He was admitted into the ICU for the following dx of pancreatic necrosis, toxic metabolic encephalopathy, septic shock, alcohol use disorder, hypovelemic shock, DKA, normal anion gap metabolic acidosis, GERD, elevated troponin I level, TULIO, chornic pancreatitis d/t alcohol intoxication. Patient presents with clinical signs and symptoms consistent with dx. Pt is at his baseline level of function in regards to his ADL/IADL routines. He does take increased performance time in regards to his performance but functionally does not need (A) at this time. OT will plan to work with pt for UE strengthening to continue to progress him but functionally he is very (I) at this time. AMPAC score 23 Patient is assessed as a Low 78224 complexity based on the following: History: see above Examination: see functional limitations as noted above Presentation: evolving Decision Making: AMPAC score 23 GOALS Goals x1 week 1. Strengthening of (B) UE- Pt will be able to perform UE strengthening (I) PLAN OF CARE/TREATMENT PLAN: 1x/day, 5 days/ week x 1week Initiate Occupational Therapy Services for bathing, dressing, grooming, toileting, eating, transfer training. DISCHARGE RECOMMENDATIONS Home with services TREATMENT TIME/MINUTES/CODES 72095, [id number], 20 minutes Sarah Painter OTR/L [facility] [place], [place]
--- NOTE | 2022-09-18 10:36 | W.PALPGNOTE ---
Date of service: 09/18/22 Time of Service: 10:30 Assessment and Plan Assessment and plan (1) Palliative care encounter: Status: Acute (2) Advanced care planning/counseling discussion: Status: Acute Assessment and plan: Goals of care discussion: Patient is looking forward to returning home and resuming care of his dog and his horses. Also looking forward to having Ly and her partner moved in with him. Feels he is done with drinking. When asking how he will keep from drinking, just have to put your mind to it . CODE STATUS discussion: We discussed the procedure of CPaR, actual mechanical process, rate of success in restoring heartbeat, short and long-term side effects in survivors (including likely decreased physical and cognitive functioning). Patient would like to receive CPR. He would like to take the chance that he can return to previous functioning should he have a cardiac arrest. However he would not want to be on a respirator forever and would prefer to have a time-limited trial of intubation. He definitely wants to be determined to the hospital if he is ill to be treated including antibiotics and IV fluids. A new COLST will be drawn out today making him full code, and documenting his desire for time-limited trial of intubation. Since he has now had this significant illness when he was incapacitated and Ly needed to make decisions, I advised that we meet after his discharge to put together an advanced directive. Explained how stressful it can be for healthcare agent to make decisions if they are called to want to do so. Any guidance provided in an advanced directive is very helpful for the healthcare agent. He agrees to meet with me after discharge to put together an advanced directive. He is given a blank copy of the [place] advanced directive form. Change in CODE STATUS discussed with daughter Ly by phone, ICU nursing staff, hospitalist. (3) Toxic metabolic encephalopathy: Status: Resolved (4) Alcohol use disorder: Status: Acute Assessment and plan: See discussion under HPI. At this time, patient expresses that any formal alcohol treatment or counseling will not be helpful. However he does identify that Wellbutrin has been helpful in the past. He could be started on Wellbutrin if there is no contraindication and follow-up with his PCP. (5) Chronic pancreatitis due to acute alcohol intoxication: Status: Acute (6) Diabetes: Status: Acute Assessment and plan: Patient reports some trouble affording his more expensive medicines which would include the Jardiance and the long-acting insulin. This is led him to not take the insulin every day. Given that he was admitted with DKA, I advise making the message take your insulin every day no matter what . The Jardiance is less important in keeping him out of DKA. U he is able to afford his medications, would suggest putting emphasis on the insulin. I advised him to discuss this with his PCP, chronic critical care cns at the office might be able to help him with the pharmaceutical assistance program. His insurance may also have better coverage for a different long-acting insulin and a medication similar to Jardiance. (7) Pancreatic pseudocyst: Status: Chronic (8) History of acute gouty arthritis: Status: Acute Assessment and plan: Patient reports previous history gout flares. More painful than pancreatitis. Was taking ALlopurinol eery other day and this was effective at preventing flares for over a year. To help with pain management, and he is at increased risk of flare due to this illness, consider resuming as soon as safe to do so. 16 to 30 minutes spent today on Advance Care Planning. Patient and family participated voluntarily. Advance care planning may include (not limited to) explanation and discussion of advance directives, choosing and appointing healthcare agents, alternatives to various ACP tools, discussion of (and if indicated, completion of) COLST form, discussion of patient's values and overall goals for treatment, palliative and disease directive care options, ways to avoid hospital readmission including hospice discussions, care preferences should the patient's several other adverse health events.See today's palliative care note for additional information. Subjective Subjective Interval history since last seen: Mr. Mccarthy is a 56-year-old male from [place], [place] who was admitted several days ago with with DKA, acute kidney injury, hypotension, change in mental status from possible sepsis (source unclear, possibly infected pancreatic pseudocyst?).? His medical history includes significant alcoholism, insulin-dependent? diabetes mellitus (type 1/2, now likely type 1 given pancreatic insufficiency and DKA), chronic pancreatitis with pseudocyst,? hypertension, paroxysmal atrial fibrillation not on anticoagulation, GERD.? He had a previous admission for pancreatitis about 2 weeks prior to this admission. I met with his family 2 weeks ago when he was obtunded from his medical condition. Over the last 2 days he is had steady clinical improvement and is now awake and alert, able to take clear liquid diet, walking in his room under PT supervision. Patient was pleasant, cooperative, answers questions thoughtfully. See previous note for additional history and history as per family. Additional history obtained today from patient: EtOH: None for the last three weeks. Stopped cold turkey (I said screw it after last bout pancreatitis)ju. Previous binge drinker, beer. Longest length of sobriety in last 20 years was 1 1/2 years. Stopped cold turkey. What got you going again. I gave up, didn't care. He would drink both alone and with friends. Never found counseling or AA or other forms of substance abuse therapy helpful. Found the counselors judgmental and somewhat degrading. That does not help . He identifies caring for his horses as being the most helpful thing to keep his mind off of drinking. Wellbutrin: helped in the past when he stopped drinking. Steadied me. Naltrexone: Did not help Clonidine: that's shit. caused diarrhea and made him feel terrible Chronic pancreatitis/pancreatic pseudocyst:?Reports that he does not have chronic abdominal pain from the pancreatitis. Bouts of pancreatitis are very unpleasant and he would do anything to avoid getting further episodes. Diabetes:?Dr. Aguilera's note reviewed. Patient reports that co-pay on Jardiance is over $75 a month and this is quite costly for him. He cannot recall how much long-acting insulin cost, but it is also expensive. Does not take either 1 every day. Depression:?He is not sure whether he has been depressed or not. Sometimes gets down. Finds being in counseling judgmental and somewhat degrading and not at all helpful. What helps you cope: talking to his dog.Can talk to Ly, caring for horses. What bothers you the most: lower abdominal pain. What worried you the most: the pancreatitis. Care Team: Primary Care physician: Dr. Cantrell Social HX: Lives in [place].? Ly is planning to move into this house with her boyfriend in the next few months. Daughter Ly, Sons Malik and Anam.? Ex- is involved with supporting children who help their father.? He currently has no partner. Hobbies(as per patient): caring for miniature ponies, dog(renae terrier), mow lawn, maintains house, no TV, some reading. Has a lot of no-so-close friends. Enjoys walking on the road in the morning. Function: pt reports able to do all own ADLs and iADLs. Driving. Spiritual history: Believes in God, talks to God daily, does not go to [employer] Palliative review of systems: Unable to answer Pain: Today with lower abdominal pain (not his pancreatitis pain, which is RUQ) Dyspnea: None GI symptoms:NOne Appetite:Hungry Depression: maybe Anxiety: Emotional Distress: Spiritual/Existential Distress: Advanced Care Planning: Advanced Directive: Does not have one. Reports that he and Ly have been talking about this (sounds more like a legal usual will rather than a medical well) Health Care Agent: Unequivocally would want Ly to be his HCA. COLST: Yesterday, healthcare agent Ly asked for DNR/DNI. Today patient is very clear that he would want CPR and he would want a trial of intubation. Wants to be transferred and treated. See full discussion under A/P Limitations: Exam Narrative Exam Narrative: Pleasant. Talkative. Appropriate. Follows simple directions. Able to sit up on his own. In no distress. Objective Last Vital Signs Temp 36.1 C L 09/18/22 10:05 Pulse 115 H 09/18/22 10:05 Resp 15 09/18/22 10:05 BP 96/68 L 09/18/22 10:05 Pulse Ox 96 09/18/22 10:05 Laboratory Results - last 24 hr 09/16/22 09/17/22 09/17/22 04:15 06:30 12:21 WBC RBC Hgb Hct MCV MCH MCHC RDW Plt Count MPV Immature Gran % Neutrophils % Lymphocytes % Monocytes % Eosinophils % Basophils % Nucleated RBC % Absolute Neutrophils Absolute Lymphocytes Absolute Monocytes Absolute Eosinophils Absolute Basophils VBG pH VBG pCO2 VBG pO2 VBG HCO3 VBG Total CO2 VBG O2 Saturation VBG Base Excess Sodium 142 Potassium 4.3 D Chloride 108 H Carbon Dioxide 24.4 Anion Gap 9.6 BUN 6 L Creatinine 1.3 Est GFR (CKD-EPI 2020) 64.88 Glucose 156 H Calcium 8.8 Ionized Calcium 1.15 Magnesium 2.6 H Total Bilirubin Conjugated Bilirubin AST ALT Alkaline Phosphatase C-Reactive Protein Total Protein Albumin Procalcitonin Ur Strep pneumoniae Ag Negative Add-On Test Request 09/17/22 09/17/22 09/17/22 12:22 18:35 18:35 WBC RBC Hgb Hct MCV MCH MCHC RDW Plt Count MPV Immature Gran % Neutrophils % Lymphocytes % Monocytes % Eosinophils % Basophils % Nucleated RBC % Absolute Neutrophils Absolute Lymphocytes Absolute Monocytes Absolute Eosinophils Absolute Basophils VBG pH 7.37 7.36 VBG pCO2 42 42 VBG pO2 46 57 VBG HCO3 24 24 VBG Total CO2 22 L 22 L VBG O2 Saturation 85 91 VBG Base Excess -1 -2 Sodium 138 Potassium 3.6 Chloride 106 Carbon Dioxide 24.1 Anion Gap 7.9 BUN 6 L Creatinine 1.2 Est GFR (CKD-EPI 2020) 71.42 Glucose 508 H* Calcium 8.3 L Ionized Calcium Magnesium Total Bilirubin Conjugated Bilirubin AST ALT Alkaline Phosphatase C-Reactive Protein Total Protein Albumin Procalcitonin Ur Strep pneumoniae Ag Add-On Test Request 09/17/22 09/18/22 09/18/22 Unknown 06:00 06:00 WBC RBC Hgb Hct MCV MCH MCHC RDW Plt Count MPV Immature Gran % Neutrophils % Lymphocytes % Monocytes % Eosinophils % Basophils % Nucleated RBC % Absolute Neutrophils Absolute Lymphocytes Absolute Monocytes Absolute Eosinophils Absolute Basophils VBG pH VBG pCO2 VBG pO2 VBG HCO3 VBG Total CO2 VBG O2 Saturation VBG Base Excess Sodium 143 Potassium 3.2 L Chloride 109 H Carbon Dioxide 26.9 Anion Gap 7.1 BUN 4 L Creatinine 0.9 Est GFR (CKD-EPI 2020) 100.86 Glucose 203 H Calcium 8.5 Ionized Calcium Magnesium 1.9 Total Bilirubin 0.4 Conjugated Bilirubin 0.2 AST 30 ALT 18 Alkaline Phosphatase 188 H C-Reactive Protein 2.22 H Total Protein 5.7 L Albumin 2.2 L Procalcitonin 0.1 Ur Strep pneumoniae Ag Add-On Test Request TNP 09/18/22 06:00 WBC 6.06 RBC 3.47 L Hgb 11.8 L Hct 34.6 L MCV 100 H MCH 34.0 H MCHC 34.1 RDW 13.2 Plt Count 184 MPV 10.7 Immature Gran % 0.3 Neutrophils % 45.2 Lymphocytes % 45.7 Monocytes % 6.8 Eosinophils % 1.0 Basophils % 1.0 Nucleated RBC % 0.0 Absolute Neutrophils 2.74 Absolute Lymphocytes 2.77 Absolute Monocytes 0.41 Absolute Eosinophils 0.06 Absolute Basophils 0.06 VBG pH VBG pCO2 VBG pO2 VBG HCO3 VBG Total CO2 VBG O2 Saturation VBG Base Excess Sodium Potassium Chloride Carbon Dioxide Anion Gap BUN Creatinine Est GFR (CKD-EPI 2020) Glucose Calcium Ionized Calcium Magnesium Total Bilirubin Conjugated Bilirubin AST ALT Alkaline Phosphatase C-Reactive Protein Total Protein Albumin Procalcitonin Ur Strep pneumoniae Ag Add-On Test Request
[2022-09-18] MEDS: Normal Saline Flush 10 ML SYR IVP ×5 (10:50→22:07)
[2022-09-18] MEDS: Normal Saline 500 ML IV (10:57)
[2022-09-18] MEDS: POTASSIUM CHLORIDE 20 MEQ/100 ML BAG 50 MEQ IVPB ×2 (10:58→13:37)
[2022-09-18] MEDS: Insulin Glargine 300 UNITS/3 ML PEN 22 UNITS SC (11:00)
--- NOTE | 2022-09-18 12:03 | PDOC.CMPRO ---
Date of service: 09/18/22 Time of Service: 12:03 Care Management Progress Note Progress Note Text Progress Note Text: S/O: Blayne was meeting with Palliative care this morning when CM attempted to visit with him. Per RN, he is able to converse much more clearly today. His RN stated that he will need diabetic education prior to discharge; there is an order placed. Per chart review, the telehealth nurse educator was not able to meet with him yesterday due to his mental status. CM reached out to inform that he is now able to engage in conversation, and it would now be appropriate for the diabetic education consultation. He remains closely monitored at ICU level of care. CM will continue to follow. A: 56 year old male admitted to [facility] on 09/15/22 for TULIO, DKA, Lactic acidosis P: Palliative was consulted,? a COLST form was reviewed and completed by his designated decision maker which is his daughter Ly. Code status was changed to a DNR/DNI, Palliative provider to revisit? COLST with Blayne when he is more clear. [facility] will be consulted. Awaiting PT/OT recommendations. CM will follow.
--- NOTE | 2022-09-18 12:54 | W.PM.PROGNOT ---
Date of Service Date of service: 09/18/22 Time of Service: 08:50 Assessment and Plan Assessment and plan (1) Diabetic acidosis, type I: Status: Resolved Assessment and plan: Anion gap closed, acidosis resolved. Transitioned to basal bolus insulin. Trigger is likely underlying pancreatitis/pseudocyst +/- infectious process. (2) Septic shock: Status: Resolved Assessment and plan: Suspected intraabdominal process vs hypovolemic shock. General surgery evaluated the patient: will need outpatient follow up for pseudocyst. Per GI, similarly, no indication for emergent drainage of the pseudocyst at this time. Drainage usually happens in 4-6 weeks. There is a question of gastric outlet obstruction on imaging, but clinically the patient has tolerated PO so far. Procalcitonin much better; however, still requiring pressors last night, just got off of them this morning. Continue meropenem. Would continue for a total of 5 days. Blood cultures are negative. Trend CRP. (3) Pancreatic pseudocyst: Status: Chronic Assessment and plan: Discussed with [facility], who do not feel the patient would benefit from drainage at this time, but would need in 4-6 weeks. General surgery agrees. Acute pancreatitis is better - tolerating PO. (4) High anion gap metabolic acidosis: Status: Resolved Assessment and plan: In combination with non-anion gap metabolic acidosis. Continue basal bolus insulin. (5) Elevated troponin I level: Status: Acute Assessment and plan: Suspect type 2 demand ischemia given the degree of acidosis. Continue aspirin. Echo w/o wall motion abnormalities, LVEF of 50-55%. (6) Lactic acidosis: Status: Resolved Assessment and plan: as above (7) Atrial fibrillation: Assessment and plan: paroxysmal. Slightly rapid Afib this am. [id number] score is 2. The patient has elected to discontinue anticoagulation as outpatient, and I think that it poses more risks than benefits given his noncompliance. Not starting therapeutic anticoagulation at this time. I am holding beta blockers for now given that his BPs are not requiring at this time. Qualifiers: Atrial fibrillation type: paroxysmal Qualified Code(s): I48.0 - Paroxysmal atrial fibrillation (8) Neutrophilic leukocytosis: Status: Resolved Assessment and plan: Likely reactive - could be due to DKA, pancreatitis, sepsis. (9) TULIO (acute kidney injury): Status: Resolved Assessment and plan: Continue to monitor. (10) Uncontrolled type 2 diabetes mellitus with hyperglycemia, with long-term current use of insulin: Status: Chronic Assessment and plan: as above ?underlying depression and alcoholism that's driving noncompliance. I have asked diabetes education to start working with the patient, given that he now has a mental status to participate. (11) Chronic pancreatitis due to acute alcohol intoxication: Status: Acute Assessment and plan: Acute on chronic. See above. Given co-existence of pancreatic head necrosis, continue meropenem. (12) Hypertension: Status: Acute Assessment and plan: Shock resolved. NOt yet ready for resumption of metoprolol. (13) GERD without esophagitis: Status: Acute Assessment and plan: As seen on CT. Continue protonix. (14) Toxic metabolic encephalopathy: Status: Resolved Assessment and plan: Was due to DKA +/- infection. No evidence of EtOh w/d on this admission. (15) Alcohol use disorder: Status: Acute Assessment and plan: Not actively withdrawing from alcohol. Received a low dose load with phenobarbital. Monitor for w/d. Provide vitamin supplementaiton. (16) DVT prophylaxis: Status: Acute Assessment and plan: enoxaparin SC (17) Discharge planning issues: Status: Resolved Assessment and plan: Full code, as per repeat conversation with palliative care now that the patient is awake. Total Critical Care Time 40 minutes. Keep in the ICU for now with low threshold to transfer out if BPs remain stable this afternoon. PT consulted. Discussed with Dr Almodovar. Subjective Subjective Interval history since last seen: Mr Guillermo feels a lot better. His norepinephrine was stopped at 07:30 today. The patient states that he is a little nauseated, but interested in food. He wanted to have real food, not clear liquids. Denied dizziness, CP, SOB, abdominal pain. He states the diagnosis of Afib is not new and that he used to be on blood thinners but then he and his PCP stopped them. He states he was concerned about him having to do a lot of work outdoors and getting injured. He understands about the risk of stroke. He does admit to being noncompliant with insulin. He seems to have a poor understanding of the difference between long acting, rapid acting insulins, and jardiance. I educated him on that and had told him we would start to provide him with adaptive physical educator. Exam Narrative Exam Narrative: General: Middle-aged male who is significantly more alert, A&Ox3, much more engaged in the conversation, HEENT: EOMI, MMM Heart: irregularly irregular rhythm Lungs: CTAB Abdomen: soft, tender in epigastrium nondistended Extremities: no edema BLEs Objective Last Vital Signs Temp 36.1 C L 09/18/22 10:05 Pulse 115 H 09/18/22 10:05 Resp 15 09/18/22 10:05 BP 96/68 L 09/18/22 10:05 Pulse Ox 96 09/18/22 10:05 Laboratory Results - last 24 hr 09/16/22 09/17/22 09/17/22 04:15 06:30 12:21 WBC RBC Hgb Hct MCV MCH MCHC RDW Plt Count MPV Immature Gran % Neutrophils % Lymphocytes % Monocytes % Eosinophils % Basophils % Nucleated RBC % Absolute Neutrophils Absolute Lymphocytes Absolute Monocytes Absolute Eosinophils Absolute Basophils VBG pH VBG pCO2 VBG pO2 VBG HCO3 VBG Total CO2 VBG O2 Saturation VBG Base Excess Sodium 142 Potassium 4.3 D Chloride 108 H Carbon Dioxide 24.4 Anion Gap 9.6 BUN 6 L Creatinine 1.3 Est GFR (CKD-EPI 2020) 64.88 Glucose 156 H Calcium 8.8 Ionized Calcium 1.15 Magnesium 2.6 H Total Bilirubin Conjugated Bilirubin AST ALT Alkaline Phosphatase C-Reactive Protein Total Protein Albumin Procalcitonin Ur Strep pneumoniae Ag Negative Add-On Test Request 09/17/22 09/17/22 09/17/22 18:35 18:35 Unknown WBC RBC Hgb Hct MCV MCH MCHC RDW Plt Count MPV Immature Gran % Neutrophils % Lymphocytes % Monocytes % Eosinophils % Basophils % Nucleated RBC % Absolute Neutrophils Absolute Lymphocytes Absolute Monocytes Absolute Eosinophils Absolute Basophils VBG pH 7.36 VBG pCO2 42 VBG pO2 57 VBG HCO3 24 VBG Total CO2 22 L VBG O2 Saturation 91 VBG Base Excess -2 Sodium 138 Potassium 3.6 Chloride 106 Carbon Dioxide 24.1 Anion Gap 7.9 BUN 6 L Creatinine 1.2 Est GFR (CKD-EPI 2020) 71.42 Glucose 508 H* Calcium 8.3 L Ionized Calcium Magnesium Total Bilirubin Conjugated Bilirubin AST ALT Alkaline Phosphatase C-Reactive Protein Total Protein Albumin Procalcitonin Ur Strep pneumoniae Ag Add-On Test Request TNP 09/18/22 09/18/22 09/18/22 06:00 06:00 06:00 WBC 6.06 RBC 3.47 L Hgb 11.8 L Hct 34.6 L MCV 100 H MCH 34.0 H MCHC 34.1 RDW 13.2 Plt Count 184 MPV 10.7 Immature Gran % 0.3 Neutrophils % 45.2 Lymphocytes % 45.7 Monocytes % 6.8 Eosinophils % 1.0 Basophils % 1.0 Nucleated RBC % 0.0 Absolute Neutrophils 2.74 Absolute Lymphocytes 2.77 Absolute Monocytes 0.41 Absolute Eosinophils 0.06 Absolute Basophils 0.06 VBG pH VBG pCO2 VBG pO2 VBG HCO3 VBG Total CO2 VBG O2 Saturation VBG Base Excess Sodium 143 Potassium 3.2 L Chloride 109 H Carbon Dioxide 26.9 Anion Gap 7.1 BUN 4 L Creatinine 0.9 Est GFR (CKD-EPI 2020) 100.86 Glucose 203 H Calcium 8.5 Ionized Calcium Magnesium 1.9 Total Bilirubin 0.4 Conjugated Bilirubin 0.2 AST 30 ALT 18 Alkaline Phosphatase 188 H C-Reactive Protein 2.22 H Total Protein 5.7 L Albumin 2.2 L Procalcitonin 0.1 Ur Strep pneumoniae Ag Add-On Test Request Time Spent with Patient Time Spent with Patient: 35-49 minutes Time was spent: preparing to see the patient(eg.review tests), obtaining and/or reviewing separately otained hiistory, ordering medications,tests, procedures, referring, communicating with other health complex care nurse practitioner, indepentently interpreting results, counseling the patient and care coordination
[2022-09-18] MEDS: Insulin Aspart 300 UNITS/3 ML PEN SC ×3 (13:59→22:24)
--- NOTE | 2022-09-18 16:52 | PT.INTREAT ---
Date of service: 09/18/22 Time of Service: 14:30 PT Notes Visit Reasons: DKA Inpatient Physical Therapy Treatment Note [facility] Date: 09/18/2022 PRECAUTIONS: Fall. Activity as tolerated. On clear liquid diet. SUBJECTIVE: Willing to walk with PT for the afternoon. Feels like he will need a walker for home but will ask his daughter first if he has one at home. Needed to sit down on wheelchair due to legs feeling week after walking about 150 feet in he hallway. Did not report headache, chest pain nor lightheadedness throughout. OBJECTIVE: ? Telemetry monitoring in place. Central line in place.? Much more alert and responsive compared to yesterday. ? TRANSFERS/BED MOBILITY: Supine-sit: stand by assist with FWW ? Sit-stand: stand by assist with FWW ? Stand-sit: stand by assist with FWW ? GAIT? Assistive Device: FWW + wheelchair follow ? Weight bearing: FWB Assist: stand by assist ? Distance:? 200 feet + 200 feet ? ? Deviation: Kathleen increasing. Needed one seated rest due to B LE fatigue. HR ranged from 88-117 bpm throughout the walk. No LOB. Mild SOB that resolved with rest. ? THERA EX: Deferred due to fatigue?and patient wanting to rest after long walk.? ASSESSMENT:? First long walk since admission and patient needed immediate rest due to fatigue. HR remained WNL throughout. Nurse Loulou able to monitor patient remotely via telemonitor with no undue HR spikes seen. PLAN: May break session into two--one focusing on increasing ambulation distance, independence, and safety and then another one on just strengthening and balance progression. TREATMENT CODE/TIME: [id number] x 26 minutes beginning at 14:30 PM.
--- NOTE | 2022-09-18 17:05 | CHAPLAIN ---
I had a brief visit with Blayne this morning. He is much more clear today and able to have conversations. His son Anam was with him. Blayne was very pleasant and thanked me for visiting. His children, parents and exwife have been here during the past few days to support him. Blayne met with Dr. Swift from Palliative Care today. He had been changed to DNR/DNI, but today he decided to be full Code. According to the Dr. Swift's notes, Blayne said he talks to God daily, and is most relaxed when he is taking care of his horses and his dog, or taking walks. He told Dr. Swift he has decided to stop drinking.
[2022-09-18] MEDS: Biotene Mouthwash 237 ML BTL MM (19:55)
[2022-09-18] MEDS: Normal Saline 1,000 ML 1000 ML IV (21:15)
[2022-09-18] MEDS: Enoxaparin 40 MG/0.4 ML SYR SC (22:06)
[2022-09-18] MEDS: Pantoprazole 40 MG VIAL IVP (22:07)
[2022-09-18] MEDS: metroNIDAZOLE 0.75% CR. 45 GM TUBE TP (22:45)
[2022-09-19] VITALS (33 sets, daily range): BP systolic 88–123; BP diastolic 55–95; PULSE 73–117; RESP 11–29; TEMP 36–36.9; O2SAT 92–100
[2022-09-19] MEDS: Ketorolac 15 MG/ML VIAL IVP ×3 (02:15→19:19)
--- NOTE | 2022-09-19 02:34 | NUR.NOTE ---
2100--Patient had low blood pressures and Dr. Small was called at 2044. VS and I and O reported. Ordered 1000cc bolus, hold metoprolol and can keep the internal jugular IV in for the night. 234-Dr. Small in to the ICU and this nurse reported that all BP's except 1 had a MAP 65 or above.
[2022-09-19 06:59] LABS: Abs Immature Grans 0.03 10^3/uL (0.0-0.06); Absolute Basophil Count 0.03 10^3/uL (0.0-0.2); Absolute Eosinophil Count 0.09 10^3/uL (0.0-0.7); Absolute Lymphocyte Count 2.12 10^3/uL (1.2-3.4); Absolute Monocyte Count 0.23 10^3/uL (0.1-0.8); Basophils % 0.8; Eosinophils % 2.3; HCT 33.5 % (40.0-50.0); HGB 11.5 g/dL (13.5-17.5); Immature Grans % 0.8; Lymphocytes % 53.3; MCH 34.5 pg (27.0-33.0); MCHC 34.3 % (32.0-36.0); MCV 101 fL (80-95); MPV 10.7 fL (8.0-11.0); Monocytes % 5.8; Platelet Count 151 10^3/uL (130-400); RBC 3.33 10^6/uL (4.36-5.78); RDW 13.3 % (11.8-14.1); RDW-SD 49.5 fL; WBC 3.98 10^3/uL (4.4-10.8)
[2022-09-19 07:02] LABS: Absolute Neutrophil Count 1.47 10^3/uL (1.2-6.7)
[2022-09-19 07:15] LABS: Anion Gap 5.6 mmol/L (3-11); BUN 5 mg/dL (7-18); CO2 26.4 mmol/L (21.0-32.0); CREATININE 0.8 mg/dL (0.70-1.30); Calcium 8.5 mg/dL (8.5-10.1); Chloride 110 mmol/L (98-107); Estimated GFR 104.51 (mL/min/1.73m2); Glucose 233 mg/dL (74-106); Magnesium 1.7 mg/dL (1.8-2.4); Potassium 4.1 mmol/L (3.5-5.1); Sodium 142 mmol/L (136-145)
[2022-09-19] MEDS: Insulin Aspart 300 UNITS/3 ML PEN SC ×6 (08:01→21:27)
[2022-09-19] MEDS: Insulin Glargine 300 UNITS/3 ML PEN 25 UNITS SC (08:04)
[2022-09-19] MEDS: MEROPENEM 1 GM in Normal Saline 100 ML IVPB ×3 (08:41→23:42)
--- NOTE | 2022-09-19 08:45 | CMPROGNOTE_ITS ---
Date of service: 09/19/22 Time of Service: 08:45 Care Management Progress Note Progress Note Text Progress Note Text: S/O: Blayne was lying in bed when CM met with him. He is awake and engages in conversation. Pt expresses that he is feeling much better, he is happy to be alive and ready to quit drinking. Initially, he was reluctant to speak with a nutritional health coach, but is now agreeable if it can happen tomorrow as today has been really busy. Per RN, Blayne will also need diabetic education prior to discharge; there is an order placed. CM will continue to follow. A: 56 year old male admitted to [facility] on 09/15/22 for TULIO, DKA, Lactic acidosis P: COLST was updated to reflect Blayne's wishes of being a Full Code on 09/18/22. CM will place a Consult with [facility] tomorrow. Anticipate Blayne will discharge home with [facility] services if indicated, when medically cleared by provider. He will follow up with his outpatient providers and discharge plan of care as instructed. CM will follow.
--- NOTE | 2022-09-19 08:50 | NUR.NOTE ---
Occupational Therapist begins working with patient.Nursing Note:
--- NOTE | 2022-09-19 09:08 | OTTR_ITS ---
Occupational Therapy Notes Occupational Therapy Inpatient Treatment Note Date: 09/19/22 PRECAUTIONS: Fall, Standard, Full SUBJECTIVE: Pt states that he is doing okay today, he is sitting on side of the bed and just finished his breakfast. OBJECTIVE: PAIN:no c/o pain Therapeutic Exercise [id number]: OT educated and trained pt in (B) UE strengthening with use of red band consisting of- Bicep curls Triceps Shoulder ER Extensions Rows PNF patterns Shoulder flexion Wrist flexion Wrist extension Wrist supination/pronation All exercises performed 15x each with min vc for performance. PLAN: Continue to progress strengthening for (B) UE as symptoms allow. TREATMENT CODES/TIME: [id number], 25 minutes Sarah Painter OTR/[facility] [place], [place]
--- NOTE | 2022-09-19 09:14 | NUR.NOTE ---
RN notifies Cash Poster, access and Med/Surg Admit that patient has transfer orders for Med/Surg.Nursing Note:
--- NOTE | 2022-09-19 09:29 | W.PM.PROGNOT ---
Date of Service Date of service: 09/19/22 Time of Service: 09:29 Assessment and Plan Assessment and plan (1) Diabetic acidosis, type I: Status: Resolved Assessment and plan: Anion gap closed, acidosis resolved. Continue basal bolus insulin, uptitrate long acting insulin, add carb coverage, resume jardiance. Trigger is likely underlying pancreatitis/pseudocyst +/- infectious process. (2) Septic shock: Status: Resolved Assessment and plan: Suspected intraabdominal process + hypovolemic shock. General surgery evaluated the patient: will need outpatient follow up for pseudocyst. Per GI, similarly, no indication for emergent drainage of the pseudocyst at this time. Drainage usually happens in 4-6 weeks. There is a question of gastric outlet obstruction on imaging, but clinically the patient has tolerated PO so far. Procalcitonin much better. No longer requiring pressors. Continue meropenem for a total of 5 days. Blood cultures are negative. CRP improving. Ok to transfer out of the ICU. (3) Pancreatic pseudocyst: Status: Chronic Assessment and plan: Discussed with [facility], who do not feel the patient would benefit from drainage at this time, but would need in 4-6 weeks. General surgery agrees. Acute pancreatitis has resolved - tolerating PO. (4) High anion gap metabolic acidosis: Status: Resolved Assessment and plan: In combination with non-anion gap metabolic acidosis. Continue basal bolus insulin. (5) Elevated troponin I level: Status: Acute Assessment and plan: Suspect type 2 demand ischemia given the degree of acidosis. Continue aspirin. Echo w/o wall motion abnormalities, LVEF of 50-55%. (6) Lactic acidosis: Status: Resolved Assessment and plan: as above (7) Atrial fibrillation: Assessment and plan: paroxysmal. Currently in NSR. BP not tolerating beta blockers - discontinued. [id number] score is 2. The patient has elected to discontinue anticoagulation as outpatient, and I think that it poses more risks than benefits given his noncompliance. Not starting therapeutic anticoagulation at this time. Qualifiers: Atrial fibrillation type: paroxysmal Qualified Code(s): I48.0 - Paroxysmal atrial fibrillation (8) Neutrophilic leukocytosis: Status: Resolved Assessment and plan: Likely reactive - could be due to DKA, pancreatitis, sepsis. (9) TULIO (acute kidney injury): Status: Resolved Assessment and plan: Continue to monitor. (10) Uncontrolled type 2 diabetes mellitus with hyperglycemia, with long-term current use of insulin: Status: Chronic Assessment and plan: as above A1C was 9.9 on 08/29/22. ?underlying depression and alcoholism that's driving noncompliance. Resume jardiance, uptitrate long acting insulin, add carb coverage, continue moderate corrective scale. DM education consulted. (11) Chronic pancreatitis due to acute alcohol intoxication: Status: Acute Assessment and plan: Acute on chronic pancreatitis, now back to his baseline. With pseudocyst. See above. Given co-existence of pancreatic head necrosis, continue meropenem x 5 days total. (12) Hypertension: Status: Acute Assessment and plan: Shock resolved. BP did not tolerate low dose metoprolol (resumed for Afib RVR yesterday). Metoprolol now d/c'ed. (13) GERD without esophagitis: Status: Acute Assessment and plan: As seen on CT. Continue protonix. (14) Toxic metabolic encephalopathy: Status: Resolved Assessment and plan: Was due to DKA +/- infection. No evidence of EtOh w/d on this admission. (15) Alcohol use disorder: Status: Acute Assessment and plan: Not actively withdrawing from alcohol. Received a low dose load with phenobarbital. Ok to d/c EtOH w/d monitoring. Provide vitamin supplementaiton. (16) DVT prophylaxis: Status: Acute Assessment and plan: enoxaparin SC (17) Discharge planning issues: Status: Resolved Assessment and plan: Full code, as per repeat conversation with palliative care now that the patient is awake. Transfer out of the ICU. Discussed with DR Almodovar. Subjective Subjective Interval history since last seen: Converted to NSR. BGs yesterday: 192->349->266->190. FBG this am is 198. States he is having lower abdominal cramping, but the epigastric/bilateral subcostal pain that he had prior to admission has completely resolved. Denies dizziness/CP/SOB/n/v. He has been off of levophed since yesterday am at 7:30. Last night, there was an episode of hypotension after receiving metoprolol, responded to a bolus of IVF. He is now normotensive, and beta blockers have been discontinued. He was made a medical surgical patient this morning. Exam Narrative Exam Narrative: General: Middle-aged male who is very alert and oriented, having a completely reasonable conversation, A&Ox3, NAD HEENT: EOMI, MMM Heart: RRR, no m/r/g Lungs: CTAB Abdomen: soft, nontender in epigastrium nondistended Extremities: no edema BLEs Objective Last Vital Signs Temp 36.5 C 09/19/22 08:49 Pulse 117 H 09/19/22 08:49 Resp 17 09/19/22 08:49 BP 122/95 H 09/19/22 08:49 Pulse Ox 97 09/19/22 08:49 Laboratory Results - last 24 hr 09/19/22 09/19/22 06:10 06:10 WBC 3.98 L RBC 3.33 L Hgb 11.5 L Hct 33.5 L MCV 101 H MCH 34.5 H MCHC 34.3 RDW 13.3 Plt Count 151 MPV 10.7 Immature Gran % 0.8 Neutrophils % 37.0 Lymphocytes % 53.3 Monocytes % 5.8 Eosinophils % 2.3 Basophils % 0.8 Nucleated RBC % 0.0 Absolute Neutrophils 1.47 Absolute Lymphocytes 2.12 Absolute Monocytes 0.23 Absolute Eosinophils 0.09 Absolute Basophils 0.03 Sodium 142 Potassium 4.1 Chloride 110 H Carbon Dioxide 26.4 Anion Gap 5.6 BUN 5 L Creatinine 0.8 Est GFR (CKD-EPI 2020) 104.51 Glucose 233 H Calcium 8.5 Magnesium 1.7 L Time Spent with Patient Time Spent with Patient: 35-49 minutes Time was spent: preparing to see the patient(eg.review tests), obtaining and/or reviewing separately otained hiistory, ordering medications,tests, procedures, referring, communicating with other health aged or disabled care worker, indepentently interpreting results, counseling the patient and care coordination
[2022-09-19] MEDS: MAGNESIUM SULFATE 2 GM/50 ML BAG IVPB (10:15)
--- NOTE | 2022-09-19 10:57 | NUR.NOTE ---
KATY HUYNH is dc'd by ICU nurse. Pressure bandage applied. Patient tolerated same just fine. Report given to Med/Surg. RN whose first name is Cabjolie. Patient placed in wheelchair and taken to room 225.Nursing Note:
[2022-09-19] MEDS: Enoxaparin 40 MG/0.4 ML SYR SC (21:25)
[2022-09-20] VITALS (7 sets, daily range): BP systolic 112–142; BP diastolic 83–90; PULSE 64–81; RESP 16–20; TEMP 36–37.2; O2SAT 99–100
[2022-09-20] MEDS: Ketorolac 15 MG/ML VIAL IVP ×3 (01:26→21:22)
[2022-09-20 07:15] LABS: Abs Immature Grans 0.01 10^3/uL (0.0-0.06); Absolute Basophil Count 0.03 10^3/uL (0.0-0.2); Absolute Eosinophil Count 0.18 10^3/uL (0.0-0.7); Absolute Lymphocyte Count 2.65 10^3/uL (1.2-3.4); Absolute Monocyte Count 0.39 10^3/uL (0.1-0.8); Absolute Neutrophil Count 2.28 10^3/uL (1.2-6.7); Basophils % 0.5; Eosinophils % 3.2; HCT 35.1 % (40.0-50.0); HGB 11.9 g/dL (13.5-17.5); Immature Grans % 0.2; Lymphocytes % 47.8; MCH 34.4 pg (27.0-33.0); MCHC 33.9 % (32.0-36.0); MCV 101 fL (80-95); MPV 10.8 fL (8.0-11.0); Neutrophils % 41.3; Platelet Count 161 10^3/uL (130-400); RBC 3.46 10^6/uL (4.36-5.78); RDW 13.3 % (11.8-14.1); RDW-SD 49.8 fL; WBC 5.54 10^3/uL (4.4-10.8)
[2022-09-20 07:36] LABS: Anion Gap 8.4 mmol/L (3-11); BUN 8 mg/dL (7-18); CO2 28.6 mmol/L (21.0-32.0); CREATININE 0.8 mg/dL (0.70-1.30); Calcium 8.9 mg/dL (8.5-10.1); Chloride 105 mmol/L (98-107); Estimated GFR 104.51 (mL/min/1.73m2); Glucose 133 mg/dL (74-106); Magnesium 1.5 mg/dL (1.8-2.4); Potassium 3.6 mmol/L (3.5-5.1); Sodium 142 mmol/L (136-145)
[2022-09-20] MEDS: Normal Saline 500 ML IV (08:10)
[2022-09-20] MEDS: Normal Saline Flush 10 ML SYR IVP ×4 (08:10→11:35)
[2022-09-20] MEDS: Insulin Glargine 300 UNITS/3 ML PEN 30 UNITS SC (08:11)
[2022-09-20] MEDS: MEROPENEM 1 GM in Normal Saline 100 ML IVPB ×2 (08:11→15:19)
[2022-09-20] MEDS: Insulin Aspart 300 UNITS/3 ML PEN SC ×4 (08:12→17:29)
[2022-09-20] MEDS: Magnesium Oxide 400 MG TAB PO (08:13)
[2022-09-20] MEDS: Multivitamin TAB 1 TAB PO (08:13)
[2022-09-20] MEDS: Empaglifozin 25 MG TAB PO (08:13)
[2022-09-20] MEDS: Pantoprazole 40 MG TABCR PO (08:13)
[2022-09-20] MEDS: Aspirin E.C. 81 MG TABEC PO (08:13)
[2022-09-20] MEDS: Folic Acid 1 MG TAB PO (08:13)
[2022-09-20] MEDS: Thiamine 100 MG TAB PO (08:13)
--- NOTE | 2022-09-20 10:17 | PT.INTREAT ---
PT Notes Visit Reasons: DKA Inpatient Physical Therapy Treatment Note [facility] Date: 09/19/22 SUBJECTIVE: Declined PT x2 this am. Took some convincing to get up. He finally agreed. Blayne reports that he had increased pain in upper stomach, but it is better since getting some meds. Reports his legs to be stronger today. OBJECTIVE: [] BED MOBILITY/TRANSFERS Rolling L/R: I Supine-sit: I Sit-supine: I Sit-stand: I Stand-sit:I GAIT Assistive Device: FWW Weight bearing: full Assist: S/SBA Distance: approx 540' ASSESSMENT: tolerated session well. No LOB or fatigue noted with ambulation. Much improvement compared to yesterday. PLAN: will initiate a strengthening routine tomorrow as per PT POC. TREATMENT CODE/TIME: 25 min [id number]
[2022-09-20] MEDS: MAGNESIUM SULFATE 4 GM/100 ML BAG IVPB (11:35)
--- NOTE | 2022-09-20 16:06 | PDOC.CMPRO ---
Date of service: 09/20/22 Time of Service: 16:07 Care Management Progress Note Progress Note Text Progress Note Text: Blayne met with Genia from [facility] this morning. Per Genia, consult went well, resources were given to patient and outpatient follow up with a Media Relations Director is planned.
--- NOTE | 2022-09-20 16:38 | W.PM.PROGNOT ---
Date of Service Date of service: 09/20/22 Time of Service: 16:38 Assessment and Plan Assessment and plan (1) Diabetic acidosis, type I: Status: Resolved Assessment and plan: Anion gap closed, acidosis resolved. Continue basal bolus insulin, jardiance. Continue diabetic education. Trigger is likely underlying pancreatitis/pseudocyst +/- infectious process. (2) Septic shock: Status: Resolved Assessment and plan: Suspected intraabdominal process + hypovolemic shock. General surgery evaluated the patient: will need outpatient follow up for pseudocyst. Per GI, similarly, no indication for emergent drainage of the pseudocyst at this time. Drainage usually happens in 4-6 weeks. There is a question of gastric outlet obstruction on imaging, but clinically the patient has tolerated PO so far. If he were to develop symptoms of gastric outlet obstruction, would seek transfer for endoscopic ultrasound/drainage of the pseudocyst. Procalcitonin much better. No longer requiring pressors. Finish meropenem today. Blood cultures are negative. CRP improving. (3) Pancreatic pseudocyst: Status: Chronic Assessment and plan: Discussed with [facility], who do not feel the patient would benefit from drainage at this time, but would need in 4-6 weeks. General surgery agrees. Acute pancreatitis has resolved - tolerating PO. (4) High anion gap metabolic acidosis: Status: Resolved Assessment and plan: In combination with non-anion gap metabolic acidosis. Continue basal bolus insulin. (5) Elevated troponin I level: Status: Acute Assessment and plan: Suspect type 2 demand ischemia given the degree of acidosis. Continue aspirin. Echo w/o wall motion abnormalities, LVEF of 50-55%. (6) Lactic acidosis: Status: Resolved Assessment and plan: as above (7) Atrial fibrillation: Assessment and plan: paroxysmal. Currently in NSR. BP not tolerating beta blockers - discontinued. [id number] score is 2. The patient has elected to discontinue anticoagulation as outpatient, and I think that it poses more risks than benefits given his noncompliance. Not starting therapeutic anticoagulation at this time. Qualifiers: Atrial fibrillation type: paroxysmal Qualified Code(s): I48.0 - Paroxysmal atrial fibrillation (8) Neutrophilic leukocytosis: Status: Resolved Assessment and plan: Likely reactive - could be due to DKA, pancreatitis, sepsis. (9) TULIO (acute kidney injury): Status: Resolved Assessment and plan: Continue to monitor. (10) Uncontrolled type 2 diabetes mellitus with hyperglycemia, with long-term current use of insulin: Status: Chronic Assessment and plan: as above A1C was 9.9 on 08/29/22. ?underlying depression and alcoholism that's driving noncompliance. See above re insulin regimen. DM education consulted. (11) Chronic pancreatitis due to acute alcohol intoxication: Status: Acute Assessment and plan: Acute on chronic pancreatitis, now back to his baseline. With pseudocyst. See above. Given co-existence of pancreatic head necrosis, continue meropenem x 5 days total. Today is day 5. (12) Hypertension: Status: Acute Assessment and plan: Shock resolved. BP did not tolerate low dose metoprolol (resumed for Afib RVR yesterday). Metoprolol now d/c'ed. (13) GERD without esophagitis: Status: Acute Assessment and plan: As seen on CT. Continue protonix. (14) Toxic metabolic encephalopathy: Status: Resolved Assessment and plan: Was due to DKA +/- infection. No evidence of EtOh w/d on this admission. (15) Alcohol use disorder: Status: Acute Assessment and plan: Not actively withdrawing from alcohol. Received a low dose load with phenobarbital. Ok to d/c EtOH w/d monitoring. Provide vitamin supplementaiton. (16) DVT prophylaxis: Status: Acute Assessment and plan: enoxaparin SC (17) Discharge planning issues: Status: Resolved Assessment and plan: Full code, as per repeat conversation with palliative care now that the patient is awake. Anticipate discharge home in 24-48 hrs. Subjective Subjective Interval history since last seen: Mr Guillermo states that he is feeling better. He did notice an epigastric pain last night after dinner that resolved with tylenol, he thinks, and he has not had any abdominal pain since. Denies nausea. Denies CP, SOB, dizziness. He expressed that he was interesting in getting more comfortable with the insulin therapy and that he would rather go home on Thursday than tomorrow. Exam Narrative Exam Narrative: General: Middle-aged male who is A&Ox3, NAD HEENT: EOMI, MMM Heart: RRR, no m/r/g Lungs: CTAB Abdomen: soft, nontender in epigastrium, nondistended Extremities: no edema BLEs Objective Last Vital Signs Temp 36.6 C 09/20/22 15:31 Pulse 74 09/20/22 15:31 Resp 16 09/20/22 15:31 BP 115/84 09/20/22 15:31 Pulse Ox 100 09/20/22 15:31 Laboratory Results - last 24 hr 09/20/22 09/20/22 06:33 06:33 WBC 5.54 RBC 3.46 L Hgb 11.9 L Hct 35.1 L MCV 101 H MCH 34.4 H MCHC 33.9 RDW 13.3 Plt Count 161 MPV 10.8 Immature Gran % 0.2 Neutrophils % 41.3 Lymphocytes % 47.8 Monocytes % 7.0 Eosinophils % 3.2 Basophils % 0.5 Nucleated RBC % 0.0 Absolute Neutrophils 2.28 Absolute Lymphocytes 2.65 Absolute Monocytes 0.39 Absolute Eosinophils 0.18 Absolute Basophils 0.03 Sodium 142 Potassium 3.6 Chloride 105 Carbon Dioxide 28.6 Anion Gap 8.4 BUN 8 Creatinine 0.8 Est GFR (CKD-EPI 2020) 104.51 Glucose 133 H Calcium 8.9 Magnesium 1.5 L Time Spent with Patient Time Spent with Patient: 25-34 minutes Time was spent: preparing to see the patient(eg.review tests), obtaining and/or reviewing separately otained hiistory, ordering medications,tests, procedures, referring, communicating with other health healthcare or medical, indepentently interpreting results, counseling the patient and care coordination
[2022-09-20] MEDS: Enoxaparin 40 MG/0.4 ML SYR SC (21:21)
[2022-09-21] VITALS (8 sets, daily range): BP systolic 122–132; BP diastolic 83–86; PULSE 69–79; RESP 16–20; TEMP 36.4–36.7; O2SAT 95–100
[2022-09-21] MEDS: Ketorolac 15 MG/ML VIAL IVP ×3 (04:11→21:26)
[2022-09-21] MEDS: Insulin Glargine 300 UNITS/3 ML PEN 28 UNITS SC (08:53)
[2022-09-21] MEDS: Insulin Aspart 300 UNITS/3 ML PEN SC ×3 (08:54→21:28)
[2022-09-21] MEDS: Empaglifozin 25 MG TAB PO (08:54)
[2022-09-21] MEDS: Folic Acid 1 MG TAB PO (08:54)
[2022-09-21] MEDS: Pantoprazole 40 MG TABCR PO (08:54)
[2022-09-21] MEDS: Magnesium Oxide 400 MG TAB PO (08:55)
[2022-09-21] MEDS: Aspirin E.C. 81 MG TABEC PO (08:55)
[2022-09-21] MEDS: Thiamine 100 MG TAB PO (08:55)
[2022-09-21] MEDS: Multivitamin TAB 1 TAB PO (08:55)
--- NOTE | 2022-09-21 09:47 | PT.INTREAT ---
PT Notes Visit Reasons: DKA Inpatient Physical Therapy Treatment Note [facility] Date: 09/20/22 SUBJECTIVE: Blayne states that his sugar was quite low last night. He expresses some concerns about going home without a good handle/control of his sugars. States he had walked 4 laps around hospital floor with nursing this am. Willing to go again. OBJECTIVE: [] BED MOBILITY/TRANSFERS Rolling L/R: I Supine-sit: I Sit-supine: I Sit-stand: I Stand-sit:I GAIT Assistive Device: no assistive device Weight bearing: full Assist: S/SBA Distance: approx 500' Stairs: pt ascend/descend 2x6 steps and 3x4 steps with 1 rail and SBA. Ther Ex: Bridging x5 sit to stand from bed no hands x 10 HR x15 Hip abd (standing) x15 each SSH x20 ea. ASSESSMENT: tolerated session well. No LOB or fatigue noted with ambulation. No longer required walker for ambulation. No fatigue noted with ex. PLAN: will continue progressing strength and endurance following PT POC TREATMENT CODE/TIME: 30 min [id number], [id number]
--- NOTE | 2022-09-21 12:50 | W.INDIABCONS ---
Date of service: 09/19/22 Time of Service: 13:00 Diabetes Inpatient Consult Reason for Visit: Diabetes Consult DESCRIPTION/ASSESSMENT: 56yo male admitted with TULIO and DKA. In addition, has Hx HTN, GERD, and Etoh abuse with pancreatitis/pseudocyst. Prescribed Insulin Aspart on moderate sliding scale as well as Lantus at 28 units daily, 25mg Juardiance. Kcal needs are estimated at ~2200 kcals. Consult ordered due need for CHO counting education. From conversations we have had ordering his hospital meals and discussing his menu planning at home, points to some deficits in nutrition knowledge. Per provider documentation, pseudocyst could also be complicating his glucose control. INTERVENTION: Pt's Daughter is OPEN HEARTH WORKER next door at health and rehab and will be trying to sit in on education sessions we can fit in while Mr Guillermo during his inpatient stay. goal is to discharge with a CGM for 10 days and follow up to recommend adjustment in his menu planning and food choices. PLAN: Reviewed some basic CHO counting with Mr Guillermo and will continue to reinforce during his hospital stay with goal of continuing to support his diet management as an outpatient. Time Spent in Nutritional Counseling and Treatment: 30 minutes
--- NOTE | 2022-09-21 13:00 | W.PM.PROGNOT ---
Date of Service Date of service: 09/21/22 Time of Service: 13:32 Assessment and Plan Assessment and plan (1) Diabetic acidosis, type I: Status: Resolved Assessment and plan: Anion gap closed, acidosis resolved. Continue basal bolus insulin, jardiance, but decrease dose of the basal insulin and decrease carb counting ratio. Currently on lantus 28 units daily, aspart 1:10 CHO, moderate SSI. Continue diabetic education. Trigger is likely underlying pancreatitis/pseudocyst +/- infectious process. (2) Septic shock: Status: Resolved Assessment and plan: Suspected intraabdominal process + hypovolemic shock. General surgery evaluated the patient: will need outpatient follow up for pseudocyst. Per GI, similarly, no indication for emergent drainage of the pseudocyst at this time. Drainage usually happens in 4-6 weeks. There is a question of gastric outlet obstruction on imaging, but clinically the patient has tolerated PO so far. If he were to develop symptoms of gastric outlet obstruction, would seek transfer for endoscopic ultrasound/drainage of the pseudocyst. Procalcitonin much better. No longer requiring pressors. Finished antibiotics. Blood cultures are negative. CRP improving. (3) Pancreatic pseudocyst: Status: Chronic Assessment and plan: Discussed with [facility], who do not feel the patient would benefit from drainage at this time, but would need in 4-6 weeks. General surgery agrees. Acute pancreatitis has resolved - tolerating PO. (4) High anion gap metabolic acidosis: Status: Resolved Assessment and plan: In combination with non-anion gap metabolic acidosis. Continue basal bolus insulin. (5) Elevated troponin I level: Status: Acute Assessment and plan: Suspect type 2 demand ischemia given the degree of acidosis. Continue aspirin. Echo w/o wall motion abnormalities, LVEF of 50-55%. (6) Lactic acidosis: Status: Resolved Assessment and plan: as above (7) Atrial fibrillation: Assessment and plan: paroxysmal. Currently in NSR. BP not tolerating beta blockers - discontinued. [id number] score is 2. The patient has elected to discontinue anticoagulation as outpatient, and I think that it poses more risks than benefits given his noncompliance. Not starting therapeutic anticoagulation at this time. Qualifiers: Atrial fibrillation type: paroxysmal Qualified Code(s): I48.0 - Paroxysmal atrial fibrillation (8) Neutrophilic leukocytosis: Status: Resolved Assessment and plan: Likely reactive - could be due to DKA, pancreatitis, sepsis. (9) TULIO (acute kidney injury): Status: Resolved Assessment and plan: Continue to monitor. (10) Uncontrolled type 2 diabetes mellitus with hyperglycemia, with long-term current use of insulin: Status: Chronic Assessment and plan: as above A1C was 9.9 on 08/29/22. ?underlying depression and alcoholism that's driving noncompliance. See above re insulin regimen. DM education consulted, but I think it would be even better if the patient's daughter Ly could participate in DM education as well since they will now be living together. I have spoken with DM educator about this. (11) Chronic pancreatitis due to acute alcohol intoxication: Status: Acute Assessment and plan: Acute on chronic pancreatitis, now back to his baseline. With pseudocyst. See above. Given co-existence of pancreatic head necrosis, was treated with meroponem x 5 days, finishing abx yesterday, 09/20/22. (12) Hypertension: Status: Chronic Assessment and plan: Shock resolved. BP did not tolerate low dose metoprolol (resumed for Afib RVR yesterday). Metoprolol now d/c'ed. (13) GERD without esophagitis: Status: Acute Assessment and plan: As seen on CT. Continue protonix. (14) Toxic metabolic encephalopathy: Status: Resolved Assessment and plan: Was due to DKA +/- infection. No evidence of EtOh w/d on this admission. (15) Alcohol use disorder: Status: Acute Assessment and plan: Not actively withdrawing from alcohol. Received a low dose load with phenobarbital. Ok to d/c EtOH w/d monitoring. Provide vitamin supplementaiton. (16) DVT prophylaxis: Status: Acute Assessment and plan: enoxaparin SC (17) Discharge planning issues: Status: Resolved Assessment and plan: Full code, as per repeat conversation with palliative care now that the patient is awake. Anticipate discharge home tomorrow. Subjective Subjective Interval history since last seen: Mr Guillermo had an episode of hypoglycemia down to 69 last night. He denies dizziness, CP, SOB, n/v. Feels steady on feet. Would like to get more diabetes education. Exam Narrative Exam Narrative: General: Middle-aged male who is A&Ox3, NAD HEENT: EOMI, MMM Heart: RRR, no m/r/g Lungs: CTAB Abdomen: soft, nontender in epigastrium, nondistended Extremities: no edema BLEs Objective Last Vital Signs Temp 36.4 C L 09/21/22 11:03 Pulse 73 09/21/22 11:03 Resp 16 09/21/22 11:03 BP 122/83 09/21/22 11:03 Pulse Ox 100 09/21/22 11:03 Time Spent with Patient Time Spent with Patient: 25-34 minutes Time was spent: preparing to see the patient(eg.review tests), obtaining and/or reviewing separately otained hiistory, ordering medications,tests, procedures, referring, communicating with other health home day care provider, indepentently interpreting results, counseling the patient and care coordination
[2022-09-21] MEDS: Normal Saline Flush 10 ML SYR IVP ×2 (14:06→21:26)
[2022-09-21] MEDS: Magnesium Chloride 64 MG TABCR PO (20:03)
[2022-09-21] MEDS: Enoxaparin 40 MG/0.4 ML SYR SC (21:27)
[2022-09-22] VITALS (9 sets, daily range): BP systolic 105–126; BP diastolic 68–88; PULSE 63–82; RESP 16–18; TEMP 36–36.7; O2SAT 92–100
[2022-09-22] MEDS: Ketorolac 15 MG/ML VIAL IVP (03:56)
[2022-09-22] MEDS: Normal Saline Flush 10 ML SYR IVP (04:00)
[2022-09-22 07:04] LABS: Abs Immature Grans 0.03 10^3/uL (0.0-0.06); Absolute Basophil Count 0.04 10^3/uL (0.0-0.2); Absolute Lymphocyte Count 2.03 10^3/uL (1.2-3.4); Absolute Monocyte Count 0.65 10^3/uL (0.1-0.8); Absolute Neutrophil Count 2.39 10^3/uL (1.2-6.7); Basophils % 0.7; Eosinophils % 5.5; HCT 32.1 % (40.0-50.0); HGB 10.9 g/dL (13.5-17.5); Immature Grans % 0.6; Lymphocytes % 37.3; MCH 34.5 pg (27.0-33.0); MCV 102 fL (80-95); MPV 10.7 fL (8.0-11.0); Monocytes % 11.9; Platelet Count 153 10^3/uL (130-400); RBC 3.16 10^6/uL (4.36-5.78); RDW-SD 48.5 fL; WBC 5.44 10^3/uL (4.4-10.8)
[2022-09-22 07:25] LABS: Anion Gap 3.6 mmol/L (3-11); BUN 8 mg/dL (7-18); CO2 32.4 mmol/L (21.0-32.0); CREATININE 0.8 mg/dL (0.70-1.30); Calcium 8.9 mg/dL (8.5-10.1); Chloride 105 mmol/L (98-107); Estimated GFR 104.51 (mL/min/1.73m2); Glucose 65 mg/dL (74-106); Magnesium 1.5 mg/dL (1.8-2.4); Sodium 141 mmol/L (136-145)
[2022-09-22] MEDS: Aspirin E.C. 81 MG TABEC PO (09:12)
[2022-09-22] MEDS: Magnesium Chloride 64 MG TABCR PO ×2 (09:12→20:41)
[2022-09-22] MEDS: Multivitamin TAB 1 TAB PO (09:12)
[2022-09-22] MEDS: Pantoprazole 40 MG TABCR PO (09:13)
[2022-09-22] MEDS: Empaglifozin 25 MG TAB PO (09:13)
[2022-09-22] MEDS: Thiamine 100 MG TAB PO (09:13)
[2022-09-22] MEDS: Folic Acid 1 MG TAB PO (09:13)
[2022-09-22] MEDS: Allopurinol 300 MG TAB PO (09:13)
[2022-09-22] MEDS: Insulin Glargine 300 UNITS/3 ML PEN 28 UNITS SC (10:23)
--- NOTE | 2022-09-22 10:57 | PDOC.CMPRO ---
Date of service: 09/22/22 Time of Service: 10:57 Care Management Progress Note Progress Note Text Progress Note Text: S/O: Blayne was sitting up in bed, visiting with his daughter and mother when CM met with him. Blayne reports that he has financial concerns surrounding his ability to pay his bills and afford his RX copays. 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 CM faxed a referral to [facility] with his permission. Per pt, he has received diabetic education here at the hospital and is learning to carb count, use of a sliding scale and discussed getting a continuous glucose monitor. Daughter Ly is planning on participating in DM education. In addition, Blayne met with a Production Checker over the weekend and plans to follow up with [facility] after discharge. He remains motivated to quit ETOH. A: 56 year old male admitted to [facility] on 09/15/22 for TULIO, DKA, Lactic acidosis P: COLST was updated to reflect Blayne's wishes of being a Full Code on 09/18/22. CM will place a Consult with [facility] tomorrow. Anticipate Blayne will discharge home with [facility] services if indicated, when medically cleared by provider. He will follow up with his outpatient providers and discharge plan of care as instructed.? CM will follow.
[2022-09-22] MEDS: Insulin Aspart 300 UNITS/3 ML PEN SC (12:03)
--- NOTE | 2022-09-22 12:08 | PTTR_ITS ---
Date of service: 09/22/22 Time of Service: 11:30 PT Notes Visit Reasons: DKA Inpatient Physical Therapy Treatment Note [facility] Date: 09/22/22 PRECAUTIONS: Standard, activity as tolerated. SUBJECTIVE: Patient, daughter (Ly), and mother present for therapy. Patient seated EOB, agreeable to therapy. Ly expresses familiarity with HEP, and will be living with patient to help out post-discharge. OBJECTIVE: PAIN: none reported BED MOBILITY/TRANSFERS Rolling L/R: Independent Supine-sit: Independent Sit-supine: Independent Sit-stand: Independent Stand-sit: Independent Bed-Chair: Independent Chair-bed: Independent GAIT Assistive Device: none Weight bearing: full Assist: Independent Distance: 20 feet Deviation: reduced arm swing THEREX: Created and reviewed HEP with patient and daughter. Patient demonstrates understanding and ability to perform each exercise. Access Code: [email or web address] URL: [email or web address] Date: 09/22/2022 Prepared by: Merari Zabala Exercises - Supine Diaphragmatic Breathing? - 1 x daily - 7 x weekly - 3 sets - 10 reps - Sit to Stand? - 1 x daily - 7 x weekly - 3 sets - 10 reps - Standing Hip Abduction? - 1 x daily - 7 x weekly - 3 sets - 10 reps - Standing Heel Raises? - 1 x daily - 7 x weekly - 3 sets - 10 reps - Mini Lunge? - 1 x daily - 7 x weekly - 3 sets - 10 reps - Standing Hip Extension? - 1 x daily - 7 x weekly - 3 sets - 10 reps Print out of HEP given to daughter to take home. PLAN: Discuss with PT. Patient reports he is not ready to go home yet. Patient has met all therapy goals. Dr Camp aware. TREATMENT CODE/TIME: 71840 Ther Ex 35 minutes beginning at 11:30
--- NOTE | 2022-09-22 14:27 | CHAPLAIN ---
Blayne was sitting up at the edge of his bed, his daughter Ly and his mom were both in the room visiting. Blayne explained he is learning from David, (conveyor loader) how to account for his food to keep his blood sugar levels leve. He's had trouble with low sugar counts in the morning. Ly will be living with and able to help evenings. According to Care Management notes, Blayne has also met with a Car Dryer, and is motivated to stop drinking. He has two sons Anam and Jarett, who are supportive as well.
--- NOTE | 2022-09-22 14:32 | W.PM.PROGNOT ---
Date of Service Date of service: 09/22/22 Time of Service: 14:33 Assessment and Plan Assessment and plan (1) Diabetic acidosis, type I: Status: Resolved Assessment and plan: Anion gap closed, acidosis resolved. Continue basal/bolus insulin; adjust as necessary. Currently on lantus 28 units daily, aspart 1:10 CHO, moderate SSI. Continue diabetic education. Trigger is likely underlying pancreatitis/pseudocyst +/- infectious process. (2) Septic shock: Status: Resolved Assessment and plan: Suspected intraabdominal process + hypovolemic shock. General surgery evaluated the patient: will need outpatient follow up for pseudocyst. Per GI, similarly, no indication for emergent drainage of the pseudocyst at this time. Drainage usually happens in 4-6 weeks. There is a question of gastric outlet obstruction on imaging, but clinically the patient has tolerated PO so far. If he were to develop symptoms of gastric outlet obstruction, would seek transfer for endoscopic ultrasound/drainage of the pseudocyst. Procalcitonin much better. No longer requiring pressors. Finished antibiotics. Blood cultures are negative. CRP improving. (3) Pancreatic pseudocyst: Status: Chronic Assessment and plan: Discussed with [facility], who do not feel the patient would benefit from drainage at this time, but would need in 4-6 weeks. General surgery agrees. Acute pancreatitis has resolved - tolerating PO. (4) High anion gap metabolic acidosis: Status: Resolved Assessment and plan: In combination with non-anion gap metabolic acidosis. Continue basal bolus insulin. (5) Elevated troponin I level: Status: Acute Assessment and plan: Suspect type 2 demand ischemia given the degree of acidosis. Continue aspirin. Echo w/o wall motion abnormalities, LVEF of 50-55%. (6) Lactic acidosis: Status: Resolved Assessment and plan: as above (7) Atrial fibrillation: Assessment and plan: paroxysmal. Currently in NSR. BP not tolerating beta blockers - discontinued. [id number] score is 2. The patient has elected to discontinue anticoagulation as outpatient; anticoagulation poses more risks than benefits given his noncompliance. Not starting therapeutic anticoagulation at this time. Qualifiers: Atrial fibrillation type: paroxysmal Qualified Code(s): I48.0 - Paroxysmal atrial fibrillation (8) Neutrophilic leukocytosis: Status: Resolved Assessment and plan: Likely reactive - could be due to DKA, pancreatitis, sepsis. Resolved. (9) TULIO (acute kidney injury): Status: Resolved Assessment and plan: Resolved. (10) Uncontrolled type 2 diabetes mellitus with hyperglycemia, with long-term current use of insulin: Status: Chronic Assessment and plan: as above A1C was 9.9 on 08/29/22. ?underlying depression and alcoholism that's driving noncompliance. See above re insulin regimen. DM education consulted. His daughter Ly participating in DM education as well since they will now be living together. staff educator following. (11) Chronic pancreatitis due to acute alcohol intoxication: Status: Acute Assessment and plan: Acute on chronic pancreatitis, now back to his baseline. With pseudocyst. See above. Given co-existence of pancreatic head necrosis, was treated with meroponem x 5 days, finishing abx yesterday, 09/20/22. (12) Hypertension: Status: Chronic Assessment and plan: Shock resolved. BP did not tolerate low dose metoprolol (resumed for Afib RVR yesterday). Metoprolol now d/c'ed. (13) GERD without esophagitis: Status: Acute Assessment and plan: As seen on CT. Continue protonix. (14) Toxic metabolic encephalopathy: Status: Resolved Assessment and plan: Was due to DKA +/- infection. No evidence of EtOh w/d on this admission. (15) Alcohol use disorder: Status: Acute Assessment and plan: Not actively withdrawing from alcohol. Received a low dose load with phenobarbital. Provide vitamin supplementaiton. (16) DVT prophylaxis: Status: Acute Assessment and plan: enoxaparin SC (17) Discharge planning issues: Status: Resolved Assessment and plan: Full code, as per repeat conversation with palliative care now that the patient is awake. Anticipate discharge home tomorrow after further diabetic education Subjective Subjective Patient reports: no new complaints, feels better and afebrile; denies nausea, vomiting or shortness of breath Exam Narrative Exam Narrative: General: Middle-aged male who is A&Ox3, NAD. Sitting on edge of bed. HEENT: Sclera clear. MMM Heart: RRR, no murmur. Lungs: CTAB Abdomen: soft, nontender in epigastrium, nondistended Extremities: no edema BLEs Objective Last Vital Signs Temp 36.0 C L 09/22/22 11:16 Pulse 75 09/22/22 11:16 Resp 18 09/22/22 11:16 BP 121/78 09/22/22 11:16 Pulse Ox 99 09/22/22 11:16 Laboratory Results - last 24 hr 09/22/22 09/22/22 06:25 06:25 WBC 5.44 RBC 3.16 L Hgb 10.9 L Hct 32.1 L MCV 102 H MCH 34.5 H MCHC 34.0 RDW 13.0 Plt Count 153 MPV 10.7 Immature Gran % 0.6 Neutrophils % 44.0 Lymphocytes % 37.3 Monocytes % 11.9 Eosinophils % 5.5 Basophils % 0.7 Nucleated RBC % 0.0 Absolute Neutrophils 2.39 Absolute Lymphocytes 2.03 Absolute Monocytes 0.65 Absolute Eosinophils 0.30 Absolute Basophils 0.04 Sodium 141 Potassium 4.0 Chloride 105 Carbon Dioxide 32.4 H Anion Gap 3.6 BUN 8 Creatinine 0.8 Est GFR (CKD-EPI 2020) 104.51 Glucose 65 L Calcium 8.9 Magnesium 1.5 L Time Spent with Patient Time Spent with Patient: 25-34 minutes Time was spent: preparing to see the patient(eg.review tests), obtaining and/or reviewing separately otained hiistory, ordering medications,tests, procedures, referring, communicating with other health physician primary care sports medicine, indepentently interpreting results, counseling the patient and care coordination
[2022-09-22] MEDS: Bacitracin 1 PACKET TP (17:16)
[2022-09-22] MEDS: MAGNESIUM SULFATE 4 GM/100 ML BAG IVPB (17:16)
[2022-09-22] MEDS: Acetaminophen 325 MG TAB PO (20:41)
[2022-09-22] MEDS: metroNIDAZOLE 0.75% CR. 45 GM TUBE TP (22:00)
[2022-09-23] VITALS (8 sets, daily range): BP systolic 107–122; BP diastolic 70–83; PULSE 69–91; RESP 16–18; TEMP 36–36.7; O2SAT 97–100
--- NOTE | 2022-09-23 07:24 | OTDS_ITS ---
Occupational Therapy Notes Occupational Therapy Inpatient Discharge Summary Date: 09/23/22 Dates of Service: 09/18/22-09/23/22 Referring Doctor:Yady Sargent MD OT Orders: Non Urgent Precautions: Fall, Standard, DNR/DNI *This document serves as a summary of care, no skilled OT services provided for this documentation* PATIENT PROFILE/ADMITTING DIAGNOSIS: Pt is a 56 year old male who was admitted through the ED. He states that he doesn't remember coming. His clinical impression at the time was a dx of ?Pancreatic pseudocyst, Diabetic acidosis, type I. He was admitted into the ICU for the following dx of pancreatic necrosis, toxic metabolic encephalopathy, septic shock, alcohol use disorder, hypovelemic shock, DKA, normal anion gap metabolic acidosis, GERD, elevated troponin I level, TULIO, chornic pancreatitis d/t alcohol intoxication. Past Medical History: All Active Problems?(Updated 09/16/22 @ 12:52 by Yady Sargent MD) Toxic metabolic encephalopathy (Acute) Septic shock (Acute) Alcohol use disorder (Acute) Hypovolemic shock (Acute) DKA (diabetic ketoacidosis) (Acute) Normal anion gap metabolic acidosis (Acute) DVT prophylaxis (Acute) GERD without esophagitis (Acute) Neutrophilic leukocytosis (Acute) Elevated troponin I level (Acute) TULIO (acute kidney injury) (Acute) Chronic pancreatitis due to acute alcohol intoxication (Acute) High anion gap metabolic acidosis (Acute) Diabetic acidosis, type I (Acute) Constipation (Acute) Pancreatitis (Acute) Diabetes (Acute) Hypertension (Acute) Pancreatic pseudocyst (Chronic) Alcohol intake above recommended sensible limits (Chronic) Essential hypertension (Chronic 01/10/13) Hyperlipidemia (Chronic 07/15/12) Male erectile disorder (Chronic) normal testosterone Rosacea (Chronic) Tobacco dependence due to chewing tobacco (Chronic) Onychomycosis (Chronic) on fingers and toes; declines to treat due to possible medication side effects.Anxiety disorder (Chronic) Hypomagnesemia (Acute) Hypokalemia (Acute) Thrombocytopenia (Acute) Uncontrolled type 2 diabetes mellitus with hyperglycemia, with long-term current use of insulin (Chronic) Medical History?(Updated 09/16/22 @ 12:52 by Yady Sargent MD) Acute pancreatitis (12/19/13) 12/20/13,11/04/17, trial fibrillation Stable.? History during hospitalization in 2018, negative Zio patch for 48 hrs.Cerebellar lesion ruled out with MRIDepression a.? inpatient admission Surgical History? H/O arthroscopy of right knee Social History/Home Situation: Pt lives in a private home. He notes that he worked years for the [employer] and then retired from there. He has worked jobs off and on since. He states that at his baseline level of function that he is (I). He drives (I) and has a walk in shower. He does have children who he stays in contact with. He notes that he is doing much better today and feels that functionally he can perform his ADLs/IADLS similar to his baseline level of function. Equipment owned/DME: None at baseline SUBJECTIVE:?NT OBJECTIVE:? ROM: RUE AROM WFL L UE AROM WFL STRENGTH: RUE 5/5 throughout LUE 5/5 throughout FUNCTIONAL MOBILITY/ADLS:? Transfers without (A) device (I) BATHING Bathing UE AROM pt is able to perform (I) without restrictions Bathing LE AROM pt is able to perform (I) without restrictions DRESSING seated in chair Dressing LE (I) don and doffing (B) socks with increased performance time EATING seated (I) with appropriate use of silverware. Strengthening (B) UE- (I) BALANCE: Static sitting Normal Dynamic Sitting Normal ASSESSMENT:?? Patient is a 56-year-old male referred to occupational therapy services with diagnosis of Pancreatic pseudocyst, Diabetic acidosis, type I. He was admitted into the ICU for the following dx of pancreatic necrosis, toxic metabolic encephalopathy, septic shock, alcohol use disorder, hypovelemic shock, DKA, normal anion gap metabolic acidosis, GERD, elevated troponin I level, TULIO, chornic pancreatitis d/t alcohol intoxication. Patient is functionally able to use his (B) UE more, he is (I) with all aspects of his ADL/IADL routines. Due to the fact that he is (I) OT will discharge pt from skilled OT services at this time. GOALS Goals x1 week 1. Strengthening of (B) UE- Pt will be able to perform UE strengthening (I)- Met PLAN OF CARE/TREATMENT PLAN: Discharge from skilled OT services. DISCHARGE RECOMMENDATIONS Home with HH services TREATMENT TIME/MINUTES/CODES N/A Sarah Painter OTR/L [facility] [place], [place]
[2022-09-23] MEDS: Insulin Glargine 300 UNITS/3 ML PEN 28 UNITS SC (08:47)
[2022-09-23] MEDS: Aspirin E.C. 81 MG TABEC PO (08:48)
[2022-09-23] MEDS: Multivitamin TAB 1 TAB PO (08:48)
[2022-09-23] MEDS: Magnesium Chloride 64 MG TABCR PO ×2 (08:48→21:17)
[2022-09-23] MEDS: Empaglifozin 25 MG TAB PO (08:49)
[2022-09-23] MEDS: Folic Acid 1 MG TAB PO (08:49)
[2022-09-23] MEDS: Thiamine 100 MG TAB PO (08:49)
[2022-09-23] MEDS: Pantoprazole 40 MG TABCR PO (08:50)
[2022-09-23 09:35] LABS: Magnesium 1.8 mg/dL (1.8-2.4)
--- NOTE | 2022-09-23 09:51 | PDOC.CMPRO ---
Date of service: 09/23/22 Time of Service: 09:52 Care Management Progress Note Progress Note Text Progress Note Text: S/O: Blayne was sitting up in bed A: 56 year old male admitted to [facility] on 09/15/22 for TULIO, DKA, Lactic acidosis P: Anticipate Blayne will discharge home, possibly with [facility] services, when medically cleared by provider. He will follow up with his outpatient providers and discharge plan of care as instructed.? CM will follow and assess foret discharge planning concerns.
--- NOTE | 2022-09-23 11:07 | PT.INTREAT ---
PT Notes Visit Reasons: DKA Inpatient Physical Therapy Treatment Note [facility] Date: 09/23/22 PRECAUTIONS:Standard OBJECTIVE: Sit-stand: SBA Stand-sit: SBA GAIT Assistive Device: No device Weight bearing: Full Assist: SBA Distance: Approx 500ft THEREX: Standing cone tap with cowlitz alt 5 x each CENTREX RADIO OPERATOR at rail as needed, High knee marching x 20 CENTREX RADIO OPERATOR as needed, Tandem stance e.c. 30 sec each CENTREX RADIO OPERATOR as needed with CGA, Step ups 6 inch x 10 each, SLS 2o sec each CGA with CENTREX RADIO OPERATOR as needed, and standing hip abd x 15 each. ASSESSMENT: Pt tolerated today's session very well and motivated during his PT session. PLAN: Cont as per PT POC. TREATMENT CODE/TIME: 10:40-11:05 (25) JUAN NERI
[2022-09-23] MEDS: Insulin Aspart 300 UNITS/3 ML PEN SC ×3 (11:51→21:43)
[2022-09-23 15:40] LABS: PTH-Related Peptide <0.4 pmol/L (< or = 4.2)
--- NOTE | 2022-09-23 16:23 | DSE_ITS ---
Date of service: 09/24/22 Time of Service: 14:43 DS: Diagnosis Discharge Diagnosis (1) Diabetic acidosis, type I: Status: Resolved Asessment and Plan: Admitted initially in DKA. This resolved. At home was on long-acting insulin and Jardiance. Now on sliding scale insulin qAC. He has received diabetic education. His daughter has also been present for his education. He has a continuous glucose monitor. nursing to be provided and can receive further diabetic education with this service. (2) Septic shock: Status: Resolved Asessment and Plan: Resolved. (3) Pancreatic pseudocyst: Status: Chronic Asessment and Plan: He will need to arrange f/u with [facility] for [place]. This was recommended to be performed in 4-6 weeks. (4) High anion gap metabolic acidosis: Status: Resolved Asessment and Plan: Resolved with blood glucose control. (5) Elevated troponin I level: Status: Acute Asessment and Plan: Suspect type 2 demand ischemia in background of acidosis. (6) Atrial fibrillation: Asessment and Plan: Paroxysmal. Currently in NSR. BP not tolerating beta blockers - discontinued. [id number] score is 2. The patient has elected to discontinue anticoagulation as outpatient; anticoagulation poses more risks than benefits given his noncompliance. Not starting therapeutic anticoagulation at this time. (7) Neutrophilic leukocytosis: Status: Resolved Asessment and Plan: Resolved. (8) TULIO (acute kidney injury): Status: Resolved Asessment and Plan: Resolved. Creatinine at time of d/c was 0.9. (9) Chronic pancreatitis due to acute alcohol intoxication: Status: Acute Asessment and Plan: Acute on chronic pancreatitis, now back to his baseline. With pseudocyst. (10) Hypertension: Status: Chronic Asessment and Plan: Has been normotensive since septic shock resolved. Not requiring antihypertensives. (11) GERD without esophagitis: Status: Acute Asessment and Plan: Cont PPI. (12) Toxic metabolic encephalopathy: Status: Resolved Asessment and Plan: Resolved. (13) Alcohol use disorder: Status: Acute Asessment and Plan: He remains motivated to remain sober and plans on following up with [facility] after discharge, as needed.? His daughter has moved in with him temporarily and will help motivate him to remain sober. Discharge Plan Disposition Patient Disposition: Home W/Home Health Services Condition: Serious Condition: Improving Discharge Details Reason For Visit: DKA Admit Date/Time: 09/15/22 20:13 Admit Provider: Benjamin Chamorro Attending Provider: Benjamin Chamorro Primary Care Provider: Janessa Cantrell Hospital Course Hospital Course: PCP f/u in 1-2 weeks. F/[place] with [facility] in 4-6 weeks. Home Meds and New Rx's Prescriptions: New folic acid 1 mg Tablet 1 mg PO QAM Qty: 0 0RF insulin lispro [Humalog KwikPen Insulin] 100 unit/mL insulin pen 1 sliding scale dose subcut USEASDIRECTD Qty: 15 0RF artificial tear([id number]) [GenTeal Tears Moderate] 0.1-0.3-0.2 % Drops 15 ml OU QID PRN PRNQty: 0 0RF Mag 64 64 mg Tablet,Delayed Release (Dr/Ec) 64 mg PO BID Qty: 60 0RF thiamine mononitrate (vit B1) [Vitamin B-1 (mononitrate)] 100 mg Tablet 100 mg PO QAM Qty: 30 0RF Continued aspirin 81 mg tablet,delayed release (DR/EC) 81 mg PO DAILY Qty: 90 3RF multivitamin [Daily Multi-Vitamin] 1 EACH tablet 1 ea PO DAILY metoprolol tartrate 25 mg tablet 25 mg PO Q12H Qty: 180 3RF metronidazole 0.75 % cream 1 applic TP QHS Qty: 45 12RF Rx Instructions: Apply to face. magnesium 200 mg tablet 400 mg PO DAILY ascorbic acid (vitamin C) 1,000 mg capsule 1 g PO DAILY biotin 1,000 mcg tablet,chewable 1,000 mcg PO DAILY Jardiance 25 mg tablet 25 mg PO QAM Qty: 90 1RF tadalafil 10 mg tablet 10 mg PO ONCE PRN (Reason: sexual activity) Qty: 10 2RF allopurinol 300 mg tablet 300 mg PO .MWF Qty: 36 3RF Changed insulin glargine [Basaglar KwikPen U-100 Insulin] 100 unit/mL (3 mL) insulin pen 28 unit SC QHS Qty: 15 5RF No Action (DME) FreeStyle Test Strip See Dose Instructions .ROUTE .MEDSUPPLY Qty: 360 3RF Dose Instruction: As directed Rx Instructions: qid (DME) BD AutoShield Duo Pen Needle 30 gauge x 3/16 needle See Dose Instructions .ROUTE .MEDSUPPLY Qty: 100 3RF Dose Instruction: As directed Rx Instructions: test once/day Discharge Instructions Instructions: Type 2 Diabetes in Adults: New Diagnosis (GEN), Meal Planning with the Plate Method (GEN) Stand Alone Forms: Nursing Discharge Form Referrals: Janessa Cantrell MD [Primary Care Provider] - 10/08/22 4:00 pm Activity:: Activity as Tolerated Equipment/Supplies:: No Equipment Needed Diet:: Carb controlled Discharge Orders Discharge Orders: Discharge Order (Routine); Ordered 09/24/22 Ordered By: David Camp DS: Summary Time Spent with Patient providing and/or coordinating discharge services: Greater than 30 minutes Status at Discharge Functional status at discharge: independent ambulation Overall status at discharge: patient is back to baseline Mental Status: mental status grossly normal Speech and Movement: speech and movement normal Mood: congruent mood Affect: normal affect Exam Narrative Exam Narrative: General: Middle-aged male, in NAD. Sitting up in bed. Walking in hallway earlier in the day. HEENT: Sclera clear. MMM Heart: RRR, no murmur. Lungs: CTAB Abdomen: soft, nontender in epigastrium, nondistended Extremities: no edema BLEs Psych Mental Status: mental status grossly normal Speech and Movement: speech and movement normal Mood: congruent mood Affect: normal affect DS: Data Vitals/I&O Vitals and I&O: Vital Signs Temperature 36.7 C 09/23/22 15:08 Temperature Source Tympanic 09/23/22 15:08 Pulse 72 09/23/22 15:08 Pulse Rhythm Regular 09/23/22 08:45 Pulse 85 09/19/22 10:01 Respiratory Rate 16 09/23/22 15:08 Respiratory Effort Normal, Non-Labored 09/23/22 08:45 Respiratory Depth Normal 09/23/22 08:45 Respiratory Pattern Normal 09/23/22 08:45 Blood Pressure 122/83 09/23/22 15:08 Blood Pressure Mean 72 09/19/22 10:01 Blood Pressure Position Supine 09/18/22 16:30 Pulse Oximetry 100 09/23/22 15:08 Oxygen Delivery Method Room Air 09/23/22 15:08 Oxygen Flow Rate 0 09/23/22 15:08 Pain Level 2 09/23/22 15:08 Comment Pt. denies pain at this time. Pt. states, I feel pretty comfortable. 09/23/22 11:50 Intake & Output 09/22/22 09/23/22 09/23/22 23:59 11:59 23:59 Intake Total 240 / 540 910 / 910 Balance 240 / 540 910 / 910 Weight 98.55 kg Intake: Oral 240 / 540 910 / 910 Other: Urine Appearance Clear Comment Per pt. report, void x1 in the toilet earlier this morning. Per pt. report, multiple voids in the toilet throughout the day thus far. Voiding Methods Toilet Toilet Toilet Data Completed and Pending Labs on day of discharge: Labs from last 24 hours 09/23/22 09:12 Magnesium 1.8 PFSH All Active Problems History of acute gouty arthritis (Acute) Pancreatic necrosis (Acute) Advanced care planning/counseling discussion (Acute) Palliative care encounter (Acute) Alcohol use disorder (Acute) Hypovolemic shock (Acute) DKA (diabetic ketoacidosis) (Acute) Normal anion gap metabolic acidosis (Acute) DVT prophylaxis (Acute) GERD without esophagitis (Acute) Elevated troponin I level (Acute) Chronic pancreatitis due to acute alcohol intoxication (Acute) Constipation (Acute) Pancreatitis (Acute) Diabetes (Acute) Hypertension (Chronic) Pancreatic pseudocyst (Chronic) Alcohol intake above recommended sensible limits (Chronic) Essential hypertension (Chronic 01/10/13) Hyperlipidemia (Chronic 07/15/12) Male erectile disorder (Chronic) normal testosterone Rosacea (Chronic) Tobacco dependence due to chewing tobacco (Chronic) Onychomycosis (Chronic) on fingers and toes; declines to treat due to possible medication side effects. Anxiety disorder (Chronic) Hypomagnesemia (Acute) Hypokalemia (Acute) Thrombocytopenia (Acute) Uncontrolled type 2 diabetes mellitus with hyperglycemia, with long-term current use of insulin (Chronic) Medical History Acute pancreatitis (12/19/13) 12/20/13,11/04/17, 04/2022 Atrial fibrillation Stable. History during hospitalization in 2018, negative Zio patch for 48 hrs. Cerebellar lesion ruled out with MRI Depression a. inpatient admission Surgical History H/O arthroscopy of right knee Family History Grandfather , PA at age 54. Myocardial infarction Father Prostate cancer Grandfather Personal history of malignant neoplasm Social History Smoking/Tobacco Use Status: Former Tobacco Use Smokeless tobacco user: chewing tobacco Counseling given: provider counseling Smoking risk assessment performed?: Yes Alcohol Intake: current Alcohol Intake frequency: 3 or more drinks per day Drug use: Never Substance use type: does not use Details: no alcohol for 12+ days due to pancreatitis Household members: none Housing: other Number of Children: 3 Education Level: high school current occupation: Currently unemployed Pets and animals: Yes Pets and animals: dog(s) Sexually active: No What is your relationship status?: How often do you get together with friends or relatives?: once per week Panel score (0-1 are the most socially isolated patients): 0 What type of physical activity do you participate in: walking Do you feel safe at home: Yes Do you feel safe in your relationship?: Yes Time Spent with Patient Time Spent with Patient: 45-69 minutes Time was spent: preparing to see the patient(eg.review tests), obtaining and/or reviewing separately otained hiistory, referring, communicating with other health prompt care rn, indepentently interpreting results, counseling the patient and care coordination
--- NOTE | 2022-09-23 16:24 | PDOC.CMDIS ---
Date of service: 09/23/22 Time of Service: 16:24 LACE Index Scoring Tool Questions: Length of Stay (in days): 7 - 13 Was the patient admitted via the E.D.?: Yes Comorbidities: Diabetes w/o Complication and Liver or Renal Disease E.D. Visits: 3 Answers: Total Score: 16 Risk of Readmission: High Risk Care Management Discharge Plan Reason for Hospitalization: TULIO, DKA, Lactic acidosis Discharge Plan: Blayne will discharge home with New [facility] services for nursing to reinforce diabetic education and use of his CGM. His daughter plans to move in with him and support his desire to remain sober and achieve better control of his diabetes. He will follow up with his outpatient providers and discharge plan of care as instructed. Patient/Family Education Needs: Review discharge instructions, limitations and plan to follow up with community providers. Discuss ask me three. Services Needed at Discharge: Home Health Care Services
--- NOTE | 2022-09-23 16:41 | W.PM.PROGNOT ---
Date of Service Date of service: 09/23/22 Time of Service: 16:42 Assessment and Plan Assessment and plan (1) Diabetic acidosis, type I: Status: Resolved Assessment and plan: Anion gap closed, acidosis resolved. Continue basal/bolus insulin; adjust as necessary. Currently on lantus 28 units daily, SS AC shortacting insulin. Continue diabetic education. Trigger is likely underlying pancreatitis/pseudocyst +/- infectious process. (2) Uncontrolled type 2 diabetes mellitus with hyperglycemia, with long-term current use of insulin: Status: Chronic Assessment and plan: as above A1C was 9.9 on 08/29/22. ?underlying depression and alcoholism that's driving noncompliance. See above re insulin regimen. DM educator has met with patient but his daughter hasn't been able to be present. The plan is for him to carb count but this may not be feasible. He may need to only use a sliding scale for short-acting insulin until he feels better prepared/competent to count carbs. breastfeeding educator was not available today but plan on further input tomorrow when daughter is here. She will be here at 1100 onward. (3) Septic shock: Status: Resolved Assessment and plan: Suspected intraabdominal process + hypovolemic shock. General surgery evaluated the patient: will need outpatient follow up for pseudocyst. Per GI, similarly, no indication for emergent drainage of the pseudocyst at this time. Drainage usually happens in 4-6 weeks. There is a question of gastric outlet obstruction on imaging, but clinically the patient has tolerated PO so far. If he were to develop symptoms of gastric outlet obstruction, would seek transfer for endoscopic ultrasound/drainage of the pseudocyst. Procalcitonin much better. Out of ICU Finished antibiotics. Blood cultures are negative. CRP improving. (4) Pancreatic pseudocyst: Status: Chronic Assessment and plan: Discussed with [facility], who do not feel the patient would benefit from drainage at this time, but would need in 4-6 weeks. General surgery agrees. Acute pancreatitis has resolved - tolerating PO. (5) High anion gap metabolic acidosis: Status: Resolved Assessment and plan: In combination with non-anion gap metabolic acidosis. Continue basal bolus insulin. (6) Elevated troponin I level: Status: Acute Assessment and plan: Suspect type 2 demand ischemia given the degree of acidosis. Continue aspirin. Echo w/o wall motion abnormalities, LVEF of 50-55%. (7) Lactic acidosis: Status: Resolved Assessment and plan: as above (8) Atrial fibrillation: Assessment and plan: paroxysmal. Currently in NSR. BP not tolerating beta blockers - discontinued. [id number] score is 2. The patient has elected to discontinue anticoagulation as outpatient; anticoagulation poses more risks than benefits given his noncompliance. Not starting therapeutic anticoagulation at this time. Qualifiers: Atrial fibrillation type: paroxysmal Qualified Code(s): I48.0 - Paroxysmal atrial fibrillation (9) Neutrophilic leukocytosis: Status: Resolved Assessment and plan: Likely reactive - could be due to DKA, pancreatitis, sepsis. Resolved. (10) TULIO (acute kidney injury): Status: Resolved Assessment and plan: Resolved. (11) Chronic pancreatitis due to acute alcohol intoxication: Status: Acute Assessment and plan: Acute on chronic pancreatitis, now back to his baseline. With pseudocyst. See above. Given co-existence of pancreatic head necrosis, was treated with meroponem x 5 days, finishing abx yesterday, 09/20/22. (12) Hypertension: Status: Chronic Assessment and plan: Shock resolved. BP did not tolerate low dose metoprolol (resumed for Afib RVR yesterday). Metoprolol now d/c'd (13) GERD without esophagitis: Status: Acute Assessment and plan: As seen on CT. Continue protonix. (14) Toxic metabolic encephalopathy: Status: Resolved Assessment and plan: Was due to DKA +/- infection. No evidence of EtOh w/d on this admission. (15) Alcohol use disorder: Status: Acute Assessment and plan: Not actively withdrawing from alcohol. Received a low dose load with phenobarbital. Provide vitamin supplementaiton. (16) DVT prophylaxis: Status: Acute Assessment and plan: enoxaparin SC (17) Discharge planning issues: Status: Resolved Assessment and plan: Full code, as per repeat conversation with palliative care now that the patient is awake. Unsafe to discharge until he is competent with administering insulin. Subjective Subjective Patient reports: no new complaints and tolerating a regular diet; denies nausea, vomiting, shortness of breath or afebrile Interval history since last seen: Doesn't feel knowledgeable enough regarding short acting insulin dosing and use of his CGM. Exam Narrative Exam Narrative: General: Middle-aged male who is A&Ox3, NAD. Sitting on edge of bed. HEENT: Sclera clear. MMM Heart: RRR, no murmur. Lungs: CTAB Abdomen: soft, nontender in epigastrium, nondistended Extremities: no edema BLEs Objective Last Vital Signs Temp 36.7 C 09/23/22 15:08 Pulse 72 09/23/22 15:08 Resp 16 09/23/22 15:08 BP 122/83 09/23/22 15:08 Pulse Ox 100 09/23/22 15:08 Laboratory Results - last 24 hr 09/23/22 09:12 Magnesium 1.8 Time Spent with Patient Time Spent with Patient: 25-34 minutes Time was spent: preparing to see the patient(eg.review tests), obtaining and/or reviewing separately otained hiistory, ordering medications,tests, procedures, referring, communicating with other health home day care provider, indepentently interpreting results and counseling the patient
[2022-09-23] MEDS: Acetaminophen 325 MG TAB PO (21:16)
[2022-09-23] MEDS: Enoxaparin 40 MG/0.4 ML SYR SC (21:43)
[2022-09-24 00:01] VITALS: BP 103/66; PULSE 74; RESP 18; TEMP 36.1; O2SAT 99
[2022-09-24 03:14] VITALS: BP 111/73; PULSE 64; RESP 16; TEMP 36.1; O2SAT 99
[2022-09-24 07:01] LABS: Abs Immature Grans 0.03 10^3/uL (0.0-0.06); Absolute Basophil Count 0.05 10^3/uL (0.0-0.2); Absolute Eosinophil Count 0.28 10^3/uL (0.0-0.7); Absolute Lymphocyte Count 3.16 10^3/uL (1.2-3.4); Absolute Monocyte Count 0.96 10^3/uL (0.1-0.8); Absolute Neutrophil Count 2.43 10^3/uL (1.2-6.7); Basophils % 0.7; Eosinophils % 4.1; HCT 37.8 % (40.0-50.0); HGB 12.5 g/dL (13.5-17.5); Immature Grans % 0.4; Lymphocytes % 45.7; MCHC 33.1 % (32.0-36.0); MCV 103 fL (80-95); MPV 10.2 fL (8.0-11.0); Monocytes % 13.9; Neutrophils % 35.2; Platelet Count 229 10^3/uL (130-400); RBC 3.68 10^6/uL (4.36-5.78); RDW 13.2 % (11.8-14.1); RDW-SD 49.2 fL; WBC 6.91 10^3/uL (4.4-10.8)
[2022-09-24 07:06] VITALS: BP 122/82; PULSE 76; RESP 16; TEMP 36.6; O2SAT 99
[2022-09-24 07:27] LABS: Anion Gap 5.5 mmol/L (3-11); BUN 6 mg/dL (7-18); CO2 31.5 mmol/L (21.0-32.0); CREATININE 0.9 mg/dL (0.70-1.30); Calcium 9.7 mg/dL (8.5-10.1); Chloride 103 mmol/L (98-107); Estimated GFR 100.86 (mL/min/1.73m2); Glucose 91 mg/dL (74-106); Magnesium 1.5 mg/dL (1.8-2.4); Potassium 4.5 mmol/L (3.5-5.1); Sodium 140 mmol/L (136-145)
[2022-09-24] MEDS: Magnesium Chloride 64 MG TABCR PO (08:22)
[2022-09-24] MEDS: Thiamine 100 MG TAB PO (08:22)
[2022-09-24] MEDS: Empaglifozin 25 MG TAB PO (08:22)
[2022-09-24] MEDS: Multivitamin TAB 1 TAB PO (08:22)
[2022-09-24] MEDS: Pantoprazole 40 MG TABCR PO (08:23)
[2022-09-24] MEDS: Aspirin E.C. 81 MG TABEC PO (08:23)
[2022-09-24] MEDS: Insulin Glargine 300 UNITS/3 ML PEN 28 UNITS SC (08:23)
[2022-09-24] MEDS: Folic Acid 1 MG TAB PO (08:26)
[2022-09-24] MEDS: Allopurinol 300 MG TAB PO (08:29)
[2022-09-24] MEDS: Insulin Aspart 300 UNITS/3 ML PEN SC (12:31)
--- NOTE | 2022-09-24 13:04 | INDS_ITS ---
Date of service: 09/23/22 PT Notes Visit Reasons: DKA Physical Therapy Inpatient Discharge Summary Date: 09/23/2022 Dates of Service: 09/17/2022 through 09/23/2022 This is a clinical summary of care provided for the duration of dates listed above. No charge was made in the completion of this documentation. Referring Doctor: Yady Sargent MD PT Orders: PT CONSULT: Limited ability Precautions: Fall. Standard. Activity as tolerated. Patient Profile/Admitting Diagnosis:? Dino is a 56-year-old male who presented to the ED on 09/15/2022 due to altered mental status.? Patient is admitted to the ICU for management of diabetic acidosis (now resolved), septic shock (now resolved), high anion gap metabolic acidosis (now resolved), and lactic acidosis(now resolved), pancreatic pseudogout, elevated troponin, atrial fibrillation, uncontrolled type 2 diabetes mellitus, chronic pancreatitis due to EtOH intoxication, hypertension, GERD, and EtOH disorder. PMHX: All Active Problems?(Updated 09/16/22 @ 12:52 by Yady Sargent MD) Heller Toxic metabolic encephalopathy (Acute) Septic shock (Acute) Alcohol use disorder (Acute) Hypovolemic shock (Acute) DKA (diabetic ketoacidosis) (Acute) Normal anion gap metabolic acidosis (Acute) DVT prophylaxis (Acute) GERD without esophagitis (Acute) Neutrophilic leukocytosis (Acute) Elevated troponin I level (Acute) TULIO (acute kidney injury) (Acute) Chronic pancreatitis due to acute alcohol intoxication (Acute) High anion gap metabolic acidosis (Acute) Diabetic acidosis, type I (Acute) Constipation (Acute) Pancreatitis (Acute) Diabetes (Acute) Hypertension (Acute) Pancreatic pseudocyst (Chronic) Alcohol intake above recommended sensible limits (Chronic) Essential hypertension (Chronic 01/10/13) Hyperlipidemia (Chronic 07/15/12) Male erectile disorder (Chronic) normal testosterone Rosacea (Chronic) Tobacco dependence due to chewing tobacco (Chronic) Onychomycosis (Chronic) on fingers and toes; declines to treat due to possible medication side effects. Anxiety disorder (Chronic) Hypomagnesemia (Acute) Hypokalemia (Acute) Thrombocytopenia (Acute) Uncontrolled type 2 diabetes mellitus with hyperglycemia, with long-term current use of insulin (Chronic) Medical History?(Updated 09/16/22 @ 12:52 by Yady Sargent MD) Acute pancreatitis (12/19/13) 12/20/13,11/04/17, 04/2022 Atrial fibrillation Stable.? History during hospitalization in 2018, negative Zio patch for 48 hrs. Cerebellar lesion ruled out with MRI Depression a.? inpatient admission Surgical History? H/O arthroscopy of right knee Social History/Home Situation: Lives in a private home with 4 steps to enter with rails on both sides.? 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 Independent with all aspects of ADLs prior to admission. Equipment Owned/DME: None Subjective: NT. See most recent [facility] notes. Objective: General Observation: NT. See most recent [facility] notes. Mental Status: NT. See most recent [facility] notes. Pain: NT. See most recent [facility] [employer] notes. Vital Signs: NT. See most recent [facility] notes. ROM: Right Upper Extremity: Shoulder Flexion WFL. Shoulder abduction WFL. Elbow flexion WFL. Wrist flexion WFL. Functional opening and closing of hand WFL. Left Upper Extremity: Shoulder Flexion WFL. Shoulder abduction WFL. Elbow flexion WFL. Wrist flexion WFL. Functional opening and closing of hand WFL. Right Lower Extremity: Hip flexion WFL. Hip abduction WFL. Knee flexion WFL. Ankle dorsiflexion WFL. Ankle plantarflexion WFL. Left Lower Extremity: Hip flexion WFL. Hip abduction WFL. Knee flexion WFL. Ankle dorsiflexion WFL. Ankle plantarflexion WFL. Strength: Right Upper Extremity: Shoulder flexors 5/5. Shoulder abductors 5/5. Elbow flexors 5/5. Elbow extensors 5/5. Computer Operations Manager strong. Left Upper Extremity: Shoulder flexors 5/5. Shoulder abductors 5/5. Elbow flexors 5/5. Elbow extensors 5/5. Computer Operations Manager strong. Right Lower Extremity: Hip flexors 5/5. Hip abductors 5/5. Knee flexors 5/5. Knee extensors 5/5. Ankle dorsiflexors 5/5. Ankle plantarflexors 5/5. Left Lower Extremity:Hip flexors 5/5. Hip abductors 5/5. Knee flexors 5/5. Knee extensors 5/5. Ankle dorsiflexors 5/5. Ankle plantarflexors 5/5. Bed Mobility/Transfers: Supine to sit independent Sit to stand independent Stand to sit independent Bed to reclining chair independent Gait: Independent with level surface ambulation of up to 1000 feet with no AD. Balance: Static Sitting: Normal Dynamic Sitting: Normal Static Standing: Normal Dynamic Standing: Good Special Tests: Mobility Limitations Standardized Measure [facility] AM-PAC 6 clicks Basic Mobility Inpatient Short Form: Raw Score: 24 ? CMS Score: 0% deficit? ? ? Assessment: All goals achieved at this time. Goals: Goals X1 week 1. Supine-Sit independent MET 2. Sit-Supine independent MET 3. Sit-Stand independent MET 4. Stand-Sit independent with FWW MET 5. Bed-Chair independent with FWW MET 6. Chair-Bed independent with FWW MET 7. Independent gait on level surface with use of FWW for at least 300 feet without report of pain nor dyspnea MET 8. Independent stair negotiation while holding onto B rails for at least 5 steps without report of pain nor dyspnea MET 9. Independent with home exercise program MET 10. Good static and dynamic standing balance/tolerance MET DISCHARGE RECOMMENDATIONS: [X] ? Home with no services. Home when medically cleared by hospitalist. [] ? Home with services.? [] ? Home with outpatient PT [] [] ? SNF for continued rehabilitation [] [] ? Alf Care [] [] ? SNF versus LTC based on ability to participate and progress [] TREATMENT CODE/TIME: NE Thank you for the opportunity to participate in the care of this patient. Ann Anderson PT, DPT, CLT [facility] [place], [place]
--- NOTE | 2022-09-24 14:12 | PDOC.CMDIS ---
Date of service: 09/24/22 Time of Service: 14:12 LACE Index Scoring Tool Questions: Length of Stay (in days): 7 - 13 Was the patient admitted via the E.D.?: Yes Comorbidities: with End Organ Damage and Liver or Renal Disease E.D. Visits: 3 Answers: Total Score: 16 Risk of Readmission: High Risk Care Management Discharge Plan Reason for Hospitalization: TULIO, DKA, Lactic acidosis Discharge Plan: Blayne is discharged home via private vehicle with family. He will follow up with his community providers and discharge plan of care as instructed. New [facility] RN is ordered to reinforce diabetic education after discharge. His daughter Ly is in the process of moving in with him. Blayne remains motivated to remain sober and plans on following up with [facility] after discharge, as needed. Patient/Family Education Needs: Review discharge instructions, limitations and plan to follow up with community providers. Discuss ask me three. Services Needed at Discharge: Home Health Care Services ([facility] RN, CM notified. )
--- NOTE | 2022-09-24 15:24 | PDOC.HHF2F_ITS ---
Home Health Referral Home Health Orders Clinical synopsis of why skilled professionals are needed: This is a 56 yo with poorly controlled DM insulin requiring. He present in DKA with sepsis. These both resolved. He has had sliding scale mealtime insulin added to his home long-acting insulin and Jardiance. He has had diabetic education and a continuous glucose monitor placed. He requires ongoing education and monitoring regarding glucose monitoring and insulin administration. Medical diagnosis necessitation home health referral: Poorly controlled DM insulin requiring. S/P DKA. Registered Nurse: Check all that apply Instruct on new or changed medication(s)/assess compliance: Ordered Encounter Date and Reason: I certify that a FTF encounter for this patient was performed on September 24, 2022 and that such encounter was related to the primary reason the patient requires home health services. The encounter was conducted in the following manner: * By me as the certifying physician, DIRECTOR MACHINE, PA or * By an inpatient physician, DIRECTOR MACHINE or PA during an inpatient stay who communicated findings to me, Certification And Authentication I certify that I composed the above information based on my clinical judgment relating to this patient's medical condition and, if applicable, clinical findings communicated to me by the NPP or inpatient physician who performed the FTF encounter. Name of Provider that will be monitoring home health services: David Camp
== END 2022-09-24 16:39 | disposition home health service (06) | DRG 637 ==
LOC: ER 20:54 → ICU 09-16 07:13 → MS 09-19 11:06
PROVIDERS: Family Medicine; General Practice; Internal Medicine; Student in an Organized Health Care Education/Training Program; Admitting Provider Internal Medicine; Emergency Provider Student in an Organized Health Care Education/Training Program; PCP Family Medicine; Visit Provider Internal Medicine
DX: E10.10 Type 1 diabetes mellitus with ketoacidosis without coma (principal); A41.9 Sepsis, unspecified organism; G92.8 Other toxic encephalopathy; R57.1 Hypovolemic shock; R65.21 Severe sepsis with septic shock; K85.22 Alcohol induced acute pancreatitis with infected necrosis; N17.9 Acute kidney failure, unspecified; K86.0 Alcohol-induced chronic pancreatitis; K86.3 Pseudocyst of pancreas; I24.8 Other forms of acute ischemic heart disease; I48.0 Paroxysmal atrial fibrillation; Z79.4 Long term (current) use of insulin; K21.9 Gastro-esophageal reflux disease without esophagitis; I10 Essential (primary) hypertension; E86.0 Dehydration; F10.20 Alcohol dependence, uncomplicated; M47.814 Spondylosis without myelopathy or radiculopathy, thoracic region; R00.0 Tachycardia, unspecified; D72.829 Elevated white blood cell count, unspecified; K59.00 Constipation, unspecified; E78.5 Hyperlipidemia, unspecified; F17.290 Nicotine dependence, other tobacco product, uncomplicated; B35.1 Tinea unguium; L71.9 Rosacea, unspecified; F41.9 Anxiety disorder, unspecified; E83.42 Hypomagnesemia; E87.6 Hypokalemia; D69.6 Thrombocytopenia, unspecified; F32.A Depression, unspecified; E83.51 Hypocalcemia; Z66 Do not resuscitate; Z91.199 Patient's noncompliance with other medical treatment and regimen due to unspecified reason; M10.9 Gout, unspecified
CPT/HCPCS: 36558; 76937; 36410; 36415; 36591; 71045; 74177; 76604; 80048; 80053; 80061; 80076; 80307; 82550; 82805; 82962; 83690; 84145; 87040; 93005; 93308; 96361; 96365; 96375; 97110; 97162; 97165; 97530; 97535; 99291; J1650; 70450; 71260; 76705; 80320; 81003; 81015; 82140; 82330; 82397; 83605; 83735; 84100; 84443; 84484; 85025; 85610; 86140; 87086; 87899; 93010; 93306; 99223; 99232; 99233; 99239; 99292; J0131; J1885; J2060; J2250; J2405; J2560; J3010; J3475; J3480; J3490; J7060

== ENCOUNTER 2023-06-05 23:18 | Inpatient (IN) | payer BC, SELFPAY ==
--- NOTE | 2023-06-05 23:15 | RT.EKG_ITS ---
APPROVED REPORT Exam: Resting ECG Reason for Exam: n/v Patient Location: E HR:104 bpm ECG Measurements Heart Rate 104 AXIS HI 193 P 76 QRSd 103 QRS 13 QT 350 T 62 QTc 461 Conclusion Sinus tachycardia...rate> [address] segment or T wave abnormalities to suggest occlusive MN
[2023-06-05 23:32] VITALS: BP 206/107; PULSE 97; RESP 19; TEMP 36.3; O2SAT 99
[2023-06-06] VITALS (386 sets, daily range): BP systolic 101–200; BP diastolic 57–103; PULSE 69–105; RESP 5–32; TEMP 36.6–36.8; O2SAT 83–100
[2023-06-06 00:10] LABS: BE (Venous) -18 mmol/L (-2-3); HCO3 (Venous) 10 mmol/L (23-28); O2 Sat (Venous) 85 %; TCO2 (Venous) 9 mmol/L (24-29); pCO2 (Venous) 26 mmHg (41-51); pO2 (Venous) 52 mmHg
[2023-06-06 00:12] LABS: Abs Immature Grans 0.01 10^3/uL (0.0-0.06); Absolute Basophil Count 0.05 10^3/uL (0.0-0.2); Absolute Lymphocyte Count 2.25 10^3/uL (1.2-3.4); Absolute Monocyte Count 0.58 10^3/uL (0.1-0.8); Absolute Neutrophil Count 3.21 10^3/uL (1.2-6.7); Basophils % 0.8; Eosinophils % 1.6; Immature Grans % 0.2; Lymphocytes % 36.3; MCH 33.1 pg (27.0-33.0); MCHC 32.7 % (32.0-36.0); MCV 101 fL (80-95); MPV 9.6 fL (8.0-11.0); Monocytes % 9.4; Neutrophils % 51.7; Platelet Count 161 10^3/uL (130-400); RBC 5.43 10^6/uL (4.36-5.78); RDW 13.4 % (11.8-14.1); RDW-SD 51.3 fL
[2023-06-06 00:14] LABS: Lactate 2.1 mmol/L (0.6-1.4); pH (Venous) 7.19 (7.31-7.41)
[2023-06-06] MEDS: Metoprolol 25 MG TAB PO (00:21)
[2023-06-06] MEDS: Normal Saline 1,000 ML 1000 ML IV ×2 (00:21→00:45)
[2023-06-06] MEDS: Metoclopramide 10 MG/2 ML VIAL IVP (00:44)
--- NOTE | 2023-06-06 01:11 | ED.GENADUL_ITS ---
Discharge Plan Disposition Patient Disposition: Admit to [facility] Condition: Critical Discharge Details Clinical Impression: Ketoacidosis, Hypercalcemia Primary Care Provider: Janessa Cantrell ED Provider: Jaclyn Eli Home Meds and New Rx's Prescriptions: No Action metoprolol tartrate 25 mg tablet 25 mg PO Q12H Qty: 180 3RF thiamine mononitrate (vit B1) [Vitamin B-1 (mononitrate)] 100 mg tablet 100 mg PO QAM Qty: 90 3RF folic acid 1 mg tablet 1 mg PO QAM Qty: 90 3RF allopurinol 300 mg tablet 300 mg PO DAILY aspirin 81 mg tablet,delayed release (DR/EC) 81 mg PO DAILY Qty: 90 3RF multivitamin [Daily Multi-Vitamin] 1 EACH tablet 1 ea PO DAILY metronidazole 0.75 % cream 1 applic TP QHS Qty: 45 12RF Rx Instructions: Apply to face. ascorbic acid (vitamin C) 1,000 mg capsule 1 g PO DAILY (DME) FreeStyle Test Strip See Dose Instructions .ROUTE .MEDSUPPLY Qty: 360 3RF Dose Instruction: As directed Rx Instructions: qid Mag 64 64 mg tablet,delayed release (DR/EC) 64 mg PO BID Qty: 60 2RF (DME) BD AutoShield Duo Pen Needle 30 gauge x 3/16 needle See Dose Instructions .ROUTE .MEDSUPPLY Qty: 400 3RF Dose Instruction: As directed Rx Instructions: use 4 needles daily tadalafil 10 mg tablet 10 mg PO ONCE PRN (Reason: sexual activity) Qty: 10 2RF (DME) Dexcom G7 Sensor Device See Rx Instructions .Route Qty: 1 12RF Rx Instructions: As directed - apply according to package frequency Jardiance 25 mg tablet 25 mg PO QAM Qty: 90 1RF insulin lispro [Humalog KwikPen Insulin] 100 unit/mL insulin pen 1 sliding scale dose subcut USEASDIRECTD MDD 40 units Qty: 15 5RF Rx Instructions: sliding scale with meals (tid) 60-90 - 0 units; 91-140 3 units; 141-200 - 5 units; 201-280 - 8 units; 281-320 - 12 units. insulin glargine-yfgn [Semglee(insulin glarg-yfgn)Pen] 100 unit/mL (3 mL) insulin pen 35 unit subcut QPM Qty: 15 6RF HPI General Mode of arrival: ambulatory . Date/Time Provider Initiated Documentation: 06/05/23 23:19 . Limitations to Documentation: no limitations . Information obtained by: patient . HPI Narrative: 57yo M with hx HTN, ETOH use disorder, IDDM also on empagliflozin, presenting for nausea, vomiting, abdominal pain, and generalized malaise and body aches. Symptoms started two- three days ago and have been persistent and worsening. Nonbloody nonbilious emessis. Initially thought he had a stomach, does know someone with similar symptoms. No fevers, shortness of breath, cough, rhinorhea, dysuria, hematuria,or rash. Is typically a daily drinker, last drink 4 days ago. He is otherwise in his usual state of health. Related Data Home Medications Medication Instructions Recorded Confirmed multivitamin (Daily Multi-Vitamin 1 ea PO DAILY 10/29/16 06/05/23 tablet) aspirin 81 mg tablet,delayed 81 mg PO DAILY #90 tabs 11/14/20 06/05/23 release metronidazole 0.75 % topical cream 1 applic topical QHS #45 grams 01/09/22 06/05/23 ascorbic acid (vitamin C) 1,000 mg 1 g PO DAILY 05/21/22 06/05/23 capsule blood sugar diagnostic (FreeStyle #360 ea 10/03/22 06/06/23 Test strips) metoprolol tartrate 25 mg tablet 25 mg PO Q12H #180 tabs 10/08/22 06/05/23 thiamine mononitrate (vit B1) 100 100 mg PO QAM #90 tabs 10/08/22 06/05/23 mg tablet (Vitamin B-1 (mononitrate)) allopurinol 300 mg tablet 300 mg PO DAILY 11/04/22 06/05/23 folic acid 1 mg tablet 1 mg PO QAM #90 tabs 11/04/22 06/05/23 magnesium chloride 64 mg 64 mg PO BID #60 tabs 11/25/22 06/05/23 (magnesium chloride) tablet,delayed release (Mag 64) pen needle,diabetic dual safty 30 #400 ea 01/02/23 06/05/23 gauge x 3/16 (BD AutoShield Duo Pen Needle) tadalafil 10 mg tablet 10 mg PO ONCE PRN sexual activity 02/02/23 06/05/23 #10 tabs blood-glucose sensor (Dexcom G7 #1 ea 03/19/23 06/06/23 Sensor device) empagliflozin 25 mg tablet 25 mg PO QAM #90 tabs 03/19/23 06/05/23 (Jardiance) insulin lispro 100 unit/mL 1 sliding scale dose subcut 03/19/23 06/05/23 subcutaneous pen (Humalog KwikPen USEASDIRECTD #15 mL (U-100) Insulin) insulin glargine-yfgn 100 unit/mL 35 unit (0.35 mL) subcut QPM #15 mL 04/09/23 06/05/23 (3 mL) subcutaneous pen (Semglee (insulin glargine-yfgn) Pen) Previous Rx's Medication Instructions Recorded aspirin 81 mg tablet,delayed 81 mg PO DAILY #90 tabs 11/14/20 release metronidazole 0.75 % topical cream 1 applic topical QHS #45 grams 01/09/22 blood sugar diagnostic (FreeStyle #360 ea 10/03/22 Test strips) metoprolol tartrate 25 mg tablet 25 mg PO Q12H #180 tabs 10/08/22 thiamine mononitrate (vit B1) 100 100 mg PO QAM #90 tabs 10/08/22 mg tablet (Vitamin B-1 (mononitrate)) folic acid 1 mg tablet 1 mg PO QAM #90 tabs 11/04/22 magnesium chloride 64 mg 64 mg PO BID #60 tabs 11/25/22 (magnesium chloride) tablet,delayed release (Mag 64) pen needle,diabetic dual safty 30 #400 ea 01/02/23 gauge x 3/16 (BD AutoShield Duo Pen Needle) tadalafil 10 mg tablet 10 mg PO ONCE PRN sexual activity 02/02/23 #10 tabs blood-glucose sensor (Dexcom G7 #1 ea 03/19/23 Sensor device) empagliflozin 25 mg tablet 25 mg PO QAM #90 tabs 03/19/23 (Jardiance) insulin lispro 100 unit/mL 1 sliding scale dose subcut 03/19/23 subcutaneous pen (Humalog KwikPen USEASDIRECTD #15 mL (U-100) Insulin) insulin glargine-yfgn 100 unit/mL 35 unit (0.35 mL) subcut QPM #15 mL 04/09/23 (3 mL) subcutaneous pen (Semglee (insulin glargine-yfgn) Pen) Allergies Allergy/AdvReac Type Severity Reaction Status Date / Time morphine AdvReac Intermediate Narcotic Verified 06/05/23 23:30 induced constipation General Stated Complaint: Nausea/Vomit/Diar DELMY: 3 Review of Systems Narrative: see HPI Exam Narrative Exam Narrative: General: Alert, in no acute distress. Strong smell of ketones. Head: Normocephalic, atraumatic Neck: Trachea midline, ?Neck supple. ENT: ?Dry MM. No oropharygeal lesions or exudate. Cardiac: ?RRR, no murmurs appreciated Resp: No respiratory distress. CTAB. Abd: ?Soft, non-distended, nontender : ?No suprapubic tenderness. Extremities: ?No deformities.? No peripheral edema. Neurologic: GCS 15. ? Moves all extremities freely against gravity Course Vital Signs Vital signs: Vital Signs Temperature 36.3 C L 06/05/23 23:32 Pulse 97 H 06/05/23 23:32 Respiratory Rate 19 06/05/23 23:32 Blood Pressure 206/107 H 06/05/23 23:32 Pulse Oximetry 99 06/05/23 23:32 Temperature 36.3 C L 06/05/23 23:32 Temperature Source Temporal Artery Scan 06/05/23 23:32 Pulse 97 H 06/05/23 23:32 Respiratory Rate 19 06/05/23 23:32 Respiratory Effort Normal, Non-Labored 06/05/23 23:34 Blood Pressure 206/107 H 06/05/23 23:32 Blood Pressure Position Sitting 06/05/23 23:32 Pulse Oximetry 99 06/05/23 23:32 Oxygen Delivery Method Room Air 06/05/23 23:32 Oxygen Flow Rate 0 06/05/23 23:32 Pain Level 8 06/05/23 23:32 Lab/Test Results Lab/Test Results: 06/06/23 00:36 Blood Blood Culture - Pending 06/06/23 00:36 Blood Blood Culture - Pending Laboratory Tests Range/Units 06/06/23 00:03 WBC (4.4-10.8) 10^3/uL 6.20 RBC (4.36-5.78) 10^6/uL 5.43 Hgb (13.5-17.5) g/dL 18.0 H Hct (40.0-50.0) % 55.0 H MCV (80-95) fL 101 H MCH (27.0-33.0) pg 33.1 H MCHC (32.0-36.0) % 32.7 RDW (11.8-14.1) % 13.4 Plt Count (130-400) 10^3/uL 161 MPV (8.0-11.0) fL 9.6 Immature Gran % 0.2 Neutrophils % 51.7 Lymphocytes % 36.3 Monocytes % 9.4 Eosinophils % 1.6 Basophils % 0.8 Nucleated RBC % (0.0-0.3) % 0.0 Absolute Neutrophils (1.2-6.7) 10^3/uL 3.21 Absolute Lymphocytes (1.2-3.4) 10^3/uL 2.25 Absolute Monocytes (0.1-0.8) 10^3/uL 0.58 Absolute Eosinophils (0.0-0.7) 10^3/uL 0.10 Absolute Basophils (0.0-0.2) 10^3/uL 0.05 VBG pH (7.31-7.41) 7.19 L* VBG pCO2 (41-51) mmHg 26 L VBG pO2 mmHg 52 VBG HCO3 (23-28) mmol/L 10 L VBG Total CO2 (24-29) mmol/L 9 L VBG O2 Saturation % 85 VBG Base Excess (-2-3) mmol/L -18 L VBG Lactate (0.6-1.4) mmol/L 2.1 H Sodium Cancelled Potassium Cancelled Chloride Cancelled Carbon Dioxide Cancelled Anion Gap Cancelled BUN Cancelled Creatinine Cancelled Est GFR (CKD-EPI 2020) Cancelled Glucose Cancelled Calcium Cancelled Magnesium Cancelled Total Bilirubin Cancelled AST Cancelled ALT Cancelled Alkaline Phosphatase Cancelled Troponin I Cancelled Total Protein Cancelled Albumin Cancelled Medical Decision Making 57yo M with hx HTN, ETOH use disorder, IDDM also on empagliflozin, presenting for nausea, vomiting, abdominal pain, and generalized malaise and body aches. Symptoms started two- three days ago and have been persistent and worsening. Nonbloody nonbilious emessis. Initially thought he had a stomach, does know someone with similar symptoms. No fevers, shortness of breath, cough, rhinorhea, dysuria, hematuria,or rash. Is typically a daily drinker, last drink 4 days ago. He is otherwise in his usual state of health. Hypertensive on arrival, vital signs otherwise reassuring. Marked smell of ketones, dry mucous membranes, otherwise benign physical exam. No abdominal tenderness. High suspicion for DKA, however initial fingerstick 152.. Patient is on SGLT-2 inhibtor so euglycemic DKA possible as well as potentially alcoholic ketoacidosis. Will treat initial with 2L IVFB while awaiting labs. EKG sinus tachycardia. Does not appear to be in withdrawal. Toradol for body aches. Given home-dose PO metoprolol for hypertension. Labs reviewed as below, CBC reassuring with no leukocytosis, VBG with metabolic acidosis pH 7.19 bicarb 10, respiratory compensation with Co2 of 9. Lactate borderline at 2.1, not contributing significantly. Lipase negative. Troponin negative. Tylenol/salicylate negative, ETOH negative. UA with heavy ketones. Regrettably CMP hemolyzed and had to be redrawn. CMP eventually resulted as below, K of 5.0, bicarb 11, elevated gap at 31, slight hypercalcemia at 11.7. Differential remains euglycemic DKA vs alcoholic KA; regardless will treat ketoacidosis with dextrose infusion and insulin. Given thiamine prior to starting infusion, Mg replaced orally. Workup for provoking causes: blood cultures sent, UA negative for infection, CXR independently reviewed with no focal pneumonia on my view; agree with radiology read below. CT abd/pelvis independently reviewed; no free fluid or obstruction on my view, agree with radiology read below. Respiratory viral swab negative. On reassessment patient reports significant anxiety; will treat with ativan. Repeat BMPs trending in the right correction, continued on protocol (when the time comes will need D5 1/2NS with potassium rather than standard protocol fluid of NS with potassium). Requires ICU/stepdown admission for DKA however no beds available at [facility] at this time. [facility] [place] this time. [facility] also regrettably no capacity either at [facility] or [facility] [place]. Repeat BMPs overnight with continued slow improvement. Discussed with nursing supervision in the am; now with one ICU bed available here. Discussed with hospitalist Dr. Monique; patient accepted to ICU. Awaiting admission orders and transfer to the unit. Imaging Data Radiologic Study: Imaging: X-Ray Radiologist's impression: IMPRESSION: No acute findings. Radiologic Study #2: Imaging: CT Scan Radiologist's impression: IMPRESSION: 3.5 cm heterogeneous collection associated with distal body the pancreas which abuts the stomach has decreased in size compared to the prior study. Again noted is prominent vascularity along the deep wall of the proximal stomach. Lab Data Lab results reviewed: Yes I reviewed the patient's lab results. Quality:[facility] Health Related Social Needs: No Data to Display Critical Care Time Critical Care Time Critical Care Time: Yes Total Critical Care Time: 48 Attestation: Due to a high probability of clinically significant, life threatening deterioration, the patient required my highest level of preparedness to intervene emergently and I personally spent this critical care time directly and personally managing the patient. This critical care time included obtaining a history; examining the patient; pulse oximetry; ordering and review of studies; arranging urgent treatment with development of a management plan; evaluation of patient's response to treatment; frequent reassessment; and, discussions with other providers. This critical care time was performed to assess and manage the high probability of imminent, life-threatening deterioration that could result in multi-organ failure. It was exclusive of separately billable procedures and treating other patients PFSH All Active Problems (Updated 06/06/23 @ 03:40 by Jaclyn Eli MD) Hypercalcemia (Acute) Ketoacidosis (Acute) Pancreatic pseudocyst (Chronic) Essential hypertension (Chronic 01/10/13) Hyperlipidemia (Chronic 07/15/12) Male erectile disorder (Chronic) normal testosterone Rosacea (Chronic) Tobacco dependence due to chewing tobacco (Chronic) Onychomycosis (Chronic) on fingers and toes; declines to treat due to possible medication side effects. Anxiety disorder (Chronic) managing with THC/CBD edibles GERD without esophagitis (Acute) Type 1.5 diabetes, managed as type 1 (Acute) Advanced care planning/counseling discussion (Acute) Chronic pancreatitis (Acute) Medical History (Updated 06/06/23 @ 03:40 by Jaclyn Eli MD) History of alcohol use disorder none since hospital discharge 08/2022 Palliative care encounter History of acute gouty arthritis Diabetic acidosis, type I Atrial fibrillation Stable. History during hospitalization in 2018, negative Zio patch for 48 hrs. Cerebellar lesion ruled out with MRI Depression a. inpatient admission Acute pancreatitis (12/19/13) 12/20/13,11/04/17, 04/2022 Surgical History H/O arthroscopy of right knee Family History Grandfather , [place] at age 54. Myocardial infarction Father Prostate cancer Grandfather Personal history of malignant neoplasm Social History Smoking/Tobacco Use Status: Former Tobacco Use Smokeless tobacco user: chewing tobacco Counseling given: provider counseling Smoking risk assessment performed?: Yes Alcohol Intake: current Alcohol Intake frequency: a few times a week Alcohol type: beer Drug use: Daily Substance use type: marijuana Household members: none Housing: other Number of Children: 3 Education Level: high school current occupation: Currently unemployed Pets and animals: Yes Pets and animals: dog(s) Sexually active: No What is your relationship status?: How often do you get together with friends or relatives?: once per week Panel score (0-1 are the most socially isolated patients): 0 What type of physical activity do you participate in: walking Do you feel safe at home: Yes Do you feel safe in your relationship?: Yes PAWSS Have you Been Recently Intoxicated or Drunk Within the Last 30 days?: No Have you Ever Experienced Previous Episodes of Alcohol Withdrawal?: No Have you ever Experienced Withdrawal Seizures?: No Have you ever Experienced Delirium Tremens(DT)s?: No Have you ever undergone Alcohol Rehabilitation Treatment (i.e, inpt ot outpatient treatment programs)?: No Have you ever Experienced Blackouts?: No Have you ever Combined Alcohol with other Downers within the last 90 days?: No Have you ever Combined Alcohol with any other Substance of Abuse during the last 90 days?: No Positive Blood Alcohol level on Presentation? [PCS.BAL]: No Evidence of Increased Autonomic Activity (i.e. HR>120, tremor, sweating, agitation, nausea)?: No Result: 0
[2023-06-06] MEDS: Ketorolac 15 MG/ML VIAL IVP (01:32)
[2023-06-06 01:42] LABS: Bilirubin Small (Negative); Blood Trace-lysed (Negative); Clarity Clear (Clear); Glucose 500 mg/dL (Negative); Ketones >=160 mg/dL (Negative); Leukocyte Esterase Negative (Negative); Nitrite Negative (Negative); Specific Gravity >= 1.030 (1.005-1.025); Urobilinogen 0.2 mg/dL (Up to 0.2)
[2023-06-06 01:43] LABS: WBC Negative HPF (0-5)
[2023-06-06 01:44] LABS: ALT 40 U/L (16-63); AST 61 U/L (15-37); Albumin 4.9 g/dL (3.4-5.0); Alkaline Phosphatase 113 U/L (46-116); Anion Gap 30.7 mmol/L (3-11); BUN 19 mg/dL (7-18); Bilirubin, Total 1.1 mg/dL (0.2-1.0); CO2 11.3 mmol/L (21.0-32.0); CREATININE 1.4 mg/dL (0.70-1.30); Chloride 92 mmol/L (98-107); Estimated GFR 58.99 (mL/min/1.73m2); Glucose 182 mg/dL (74-106); Magnesium 1.7 mg/dL (1.8-2.4); Sodium 134 mmol/L (136-145); Total Protein 9.6 g/dL (6.4-8.2); Troponin I < 50 ng/L (< or =60)
[2023-06-06 01:44] LABS: Bacteria Rare HPF (Negative); C & S Indicated? No; Casts Negative LPF (Negative); Crystals Negative HPF (Negative); Epithelial Cells Negative HPF (Negative); Mucus Negative (Negative)
[2023-06-06 01:46] LABS: Calcium 11.7 mg/dL (8.5-10.1); Lipase 76 U/L (16-77)
[2023-06-06 01:53] LABS: Acetaminophen < 2 ug/mL (10-30)
[2023-06-06] MEDS: Normal Saline - Diluent 50 ML VIAL IJ (03:07)
[2023-06-06] MEDS: Omnipaque 350 MG/ML 100 ML BTL IJ (03:07)
--- NOTE | 2023-06-06 03:08 | DI.CT_ITS ---
Exam(s) CT ABDOMEN PELVIS W EXAM: CT ABDOMEN PELVIS W CLINICAL HISTORY: N/V/D, abdominal pain. TECHNIQUE: Imaging Protocol: Axial computed tomography images with coronal and sagittal reformatted images were created and reviewed CONTRAST MATERIAL: Intravenous: Omnipaque-350 100cc Oral: None COMPARISON: CT CT CHEST/ABD/PEL W from 09/15/2022 FINDINGS: VISUALIZED LUNG BASES: No nodules nor pleural effusions evident. ABDOMEN: LIVER: There are no focal hepatic lesions evident. No dilated intrahepatic ducts. GALLBLADDER/BILIARY: No obvious gallbladder pathology. CBD is not dilated. PANCREAS: Since the prior study of August 2022 there has been development of multiple parenchymal calci fications in the pancreas consistent with chronic pancreatitis pattern. The size of the intrapancrea tic pseudocyst has somewhat decreased and there is remaining pseudocyst at the level the tail which m easures 2. 2 by 1.8 cm, also contiguous with the posterior wall of the stomach through the lesser sac . SPLEEN: Spleen is not enlarged. No obvious intrasplenic lesions. Splenic vein not verified is paten t. Suspect that it is thrombosed secondary to the prior pancreatitis. ADRENALS: There are no significant adrenal masses. KIDNEYS:No cysts evident. No solid renal masses. No calculi nor hydronephrosis.. ABDOMINAL AORTA: Abdominal aorta is not enlarged. LYMPH NODES:There is no retroperitoneal nor paraaortic adenopathy. ABDOMINAL WALL: No evidence of significant anterior abdominal wall nor inguinal hernia. GI: There is no evidence of bowel obstruction, free air, nor abscess. PELVIS: GI: No evidence of appendicitis.No evidence of sigmoid diverticulitis. LYMPH NODES: There is no intrapelvic nor inguinal adenopathy. REPRODUCTIVE: Bilateral vas deferens are calcified, usually seen with diabetes. Prostate not enlarge d. Seminal vesicles unremarkable. URINARY BLADDER: No calculi nor obvious masses evident OSSEOUS: No fractures and no significant osseous lesions. IMPRESSION: 1. Compared to the prior CT scan of August 2022 the size of the intrapancreatic pseudocyst has decrease d, presently confined to the region of the pancreatic tail and measuring approximately 2.2 x 1.8 x 3. 0 cm. This is also in contact with the posterior wall of the stomach through the lesser sac. 2. The pancreas has now become atrophic and with multiple new parenchymal calcifications, having prog ressed to chronic pancreatitis appearance stage. 3. Bilateral calcified vas deferens again noted. This is usually seen in chronic diabetes. 4. RADIATION DOSE DELIVERED: Total DLP DATA REPOSITORY: All CT scans at this facility are submitted to the National Radiology Data Registry (NRDR) Dose Index Registry (DIR) with the [employer] ([employer]). RADIATION OPTIMIZATION: All CT scans at this facility use at least one of these dose optimization te chniques: automated exposure control; mA and/or kV adjustment per patient size (includes targeted exa ms where dose is matched to clinical indication); or iterative reconstruction.
--- NOTE | 2023-06-06 03:09 | DI.RAD_ITS ---
Exam(s) XR CHEST 2V PA LATERAL EXAM: XR CHEST 2V PA LATERAL CLINICAL HISTORY: dka, infectious workup. TECHNIQUE: 2D digital imaging was performed. COMPARISON: CR,XR XR PORTABLE CHEST AP POST LINE from 09/16/2022 FINDINGS: 2 views: Heart size is normal. The mediastinum is not widened. Lungs are clear. No infiltrates nor pleural effusions. IMPRESSION: No acute pulmonary findings. DATA REPOSITORY: RADIATION DOSE DELIVERED:
[2023-06-06] MEDS: INSULIN REGULAR IN 0.9 % NACL 100 UNIT/100 ML BAG IV (03:14)
[2023-06-06] MEDS: Magnesium Gluconate 500 MG TAB 1000 MG PO (03:19)
[2023-06-06] MEDS: DEXTROSE 5%-0.45% SALINE 1,000 ML 150 ML IV (03:19)
[2023-06-06] MEDS: THIAMINE 500 MG in Normal Saline 100 ML 200 MG IVPB (03:24)
[2023-06-06 03:34] LABS: PHOSPHORUS 4.3 mg/dL (2.6-4.7)
[2023-06-06 03:39] LABS: Anion Gap 25.4 mmol/L (3-11); BUN 19 mg/dL (7-18); CO2 11.6 mmol/L (21.0-32.0); CREATININE 1.3 mg/dL (0.70-1.30); Calcium 9.2 mg/dL (8.5-10.1); Chloride 98 mmol/L (98-107); Estimated GFR 64.47 (mL/min/1.73m2); Glucose 160 mg/dL (74-106); Potassium 4.6 mmol/L (3.5-5.1); Sodium 135 mmol/L (136-145)
[2023-06-06 03:44] LABS: ETHANOL BLOOD < 3.0 mg/dL (<10)
[2023-06-06] MEDS: LORazepam 1 MG TAB 2 MG PO (03:55)
[2023-06-06] MEDS: Lidocaine 2% Viscous 15 ML CUP (04:11)
[2023-06-06] MEDS: LORazepam 2 MG/ML VIAL 1 MG IVP ×4 (04:11→20:00)
[2023-06-06] MEDS: Ondansetron 4 MG/2 ML VIAL IVP ×2 (04:11→16:40)
--- NOTE | 2023-06-06 04:30 | DI.VRAD_ITS ---
PROCEDURE INFORMATION: Exam: XR Chest Exam date and time: 06/06/2023 2:50 AM Age: 57 years old Clinical indication: Other: Dka, infectious workup TECHNIQUE: Imaging protocol: Radiologic exam of the chest. Views: 2 views. COMPARISON: CR XR PORTABLE CHEST AP POST LINE 09/16/2022 4:34 AM FINDINGS: Lungs: Unremarkable. No consolidation. Pleural spaces: Unremarkable. No pleural effusion. No pneumothorax. Heart/Mediastinum: Unremarkable. No cardiomegaly. Bones/joints: Unremarkable. IMPRESSION: No acute findings. Dictated and Authenticated by: Valeriano Quinones MD. Ordering:OMARI Anaya MD
--- NOTE | 2023-06-06 04:35 | DI.VRAD_ITS ---
PROCEDURE INFORMATION: Exam: CT Abdomen And Pelvis With Contrast Exam date and time: 06/06/2023 2:44 AM Age: 57 years old Clinical indication: Nausea and vomiting and other: Diarrhea, pain TECHNIQUE: Imaging protocol: Computed tomography of the abdomen and pelvis with contrast. Contrast material: OMNIPAQUE 350; Contrast volume: 100 ml; Contrast route: INTRAVENOUS (IV); COMPARISON: CT CHEST/ABD/PEL W 09/15/2022 6:31 PM FINDINGS: Diaphragm: Small hiatal hernia. Liver: Normal. No mass. Gallbladder and bile ducts: Normal. No calcified stones. No ductal dilation. Pancreas: Sequelae of chronic pancreatitis. Spleen: Normal. Adrenal glands: Normal. No mass. Kidneys and ureters: Normal. No hydronephrosis. Stomach and bowel: 3.5 cm heterogeneous collection associated with distal body the pancreas which abuts the stomach has decreased in size compared to the prior study. Again noted is prominent vascularity along the deep wall of the proximal stomach. No pneumatosis or portal/mesenteric venous gas. Appendix: Normal appendix. Intraperitoneal space: No pneumoperitoneum or abscess. Vasculature: See Stomach and bowel finding. Lymph nodes: Unremarkable. Urinary bladder: Unremarkable as visualized. Reproductive: Unremarkable as visualized. Bones/joints: Unremarkable. No acute fracture. Soft tissues: Unremarkable. IMPRESSION: 3.5 cm heterogeneous collection associated with distal body the pancreas which abuts the stomach has decreased in size compared to the prior study. Again noted is prominent vascularity along the deep wall of the proximal stomach. Dictated and Authenticated by: Valeriano Quinones MD. Ordering:OMARI Anaya MD
[2023-06-06 05:16] LABS: COVID-19 PCR Negative (Negative); Influenza A PCR Negative (Negative); Influenza B PCR Negative (Negative); RSV PCR Negative (Negative)
[2023-06-06 05:18] LABS: Source Nasopharynx
[2023-06-06 05:29] LABS: Anion Gap 23.1 mmol/L (3-11); BUN 19 mg/dL (7-18); CO2 13.9 mmol/L (21.0-32.0); CREATININE 1.2 mg/dL (0.70-1.30); Calcium 9.1 mg/dL (8.5-10.1); Chloride 99 mmol/L (98-107); Estimated GFR 70.98 (mL/min/1.73m2); Glucose 159 mg/dL (74-106); Potassium 3.9 mmol/L (3.5-5.1); Sodium 136 mmol/L (136-145)
[2023-06-06] MEDS: POTASSIUM CHLORIDE/D5-0.45NACL 1,000 ML 150 MEQ IV ×3 (05:54→20:01)
[2023-06-06 07:23] LABS: BUN 18 mg/dL (7-18); CREATININE 1.3 mg/dL (0.70-1.30); Chloride 102 mmol/L (98-107); Estimated GFR 64.47 (mL/min/1.73m2); Glucose 142 mg/dL (74-106); Sodium 139 mmol/L (136-145)
--- NOTE | 2023-06-06 07:43 | W.PM.HP.N ---
Date of service: 06/06/23 Time of Service: 13:45 Assessment and Plan Assessment and plan (1) DKA (diabetic ketoacidosis): Status: Acute Assessment and plan: - Patient presented with nausea, vomiting and malaise that was determined to be secondary to DKA -While his blood sugar was not significantly elevated he did have anion gap metabolic acidosis with an anion gap of 30.7 -Patient did not have hyperkalemia -He was placed on DKA protocol and began to have improvement of his anion gap, most recently 13.5 -Will continue insulin drip and DKA protocol until anion gap closes -Once gap is closed, will continue insulin drip for an additional 2 hours after giving basal bolus insulin and allowing patient to have p.o. caloric intake (2) High anion gap metabolic acidosis: Status: Acute Assessment and plan: -secondary to DKA as noted above (3) Hypercalcemia: Status: Acute Assessment and plan: -resolved (4) Essential hypertension: Status: Chronic Assessment and plan: -continue home regimen History of Present Illness History of Present Illness Chief Complaint: Nausea, vomiting, abdominal pain and generalized malaise Narrative: 58-year-old male with a past medical history of hypertension, IDDM, and alcohol use disorder presenting the emergency department complaining of nausea, vomiting, abdominal pain and generalized malaise. Patient stated the symptoms started about 2 to 3 days ago and that they persisted and actually became significantly worse. He has had no bloody nonbilious emesis. He attempted to manage his symptoms at home which he knew were due to his high blood sugar levels but despite giving additional insulin was unable to do so. He denies any fevers, shortness of breath, cough, lightheadedness, dizziness, chest pain. He also does admit that his last drink was 4 days ago. In the emergency department the patient was noted as being somewhat somnolent, this improved tachycardia with heart rate up to 100 but mostly in the 80s or 70s, with otherwise normal vital signs. However, while CBC was within normal limits, it was noted the patient had metabolic acidosis that was determined to be secondary to DKA. Patient was placed on DKA protocol with insulin drip and electrolyte replacement. Ultimately emergency room physician paged hospitalist for admission for patient in DKA requiring ICU level of care. Review of Systems All systems reviewed & are unremarkable except as noted in HPI and below PFSH All Active Problems (Updated 06/06/23 @ 13:55 by Jesus Monique MD) High anion gap metabolic acidosis (Acute) DKA (diabetic ketoacidosis) (Acute) Hypercalcemia (Acute) Ketoacidosis (Acute) Pancreatic pseudocyst (Chronic) Essential hypertension (Chronic 01/10/13) Hyperlipidemia (Chronic 07/15/12) Male erectile disorder (Chronic) normal testosterone Rosacea (Chronic) Tobacco dependence due to chewing tobacco (Chronic) Onychomycosis (Chronic) on fingers and toes; declines to treat due to possible medication side effects. Anxiety disorder (Chronic) managing with THC/CBD edibles GERD without esophagitis (Acute) Type 1.5 diabetes, managed as type 1 (Acute) Advanced care planning/counseling discussion (Acute) Chronic pancreatitis (Acute) Medical History (Updated 06/06/23 @ 13:55 by Jesus Monique MD) History of alcohol use disorder none since hospital discharge 08/2022 Palliative care encounter History of acute gouty arthritis Diabetic acidosis, type I Atrial fibrillation Stable. History during hospitalization in 2018, negative Zio patch for 48 hrs. Cerebellar lesion ruled out with MRI Depression a. inpatient admission Acute pancreatitis (12/19/13) 12/20/13,11/04/17, 04/2022 Surgical History H/O arthroscopy of right knee Family History Grandfather , [place] at age 54. Myocardial infarction Father Prostate cancer Grandfather Personal history of malignant neoplasm Social History Smoking/Tobacco Use Status: Former Tobacco Use Smokeless tobacco user: chewing tobacco Counseling given: provider counseling Smoking risk assessment performed?: Yes Alcohol Intake: current Alcohol Intake frequency: a few times a week Alcohol type: beer Drug use: Daily Substance use type: marijuana Household members: none Housing: house Number of Children: 3 Education Level: high school current occupation: Currently unemployed Pets and animals: Yes Pets and animals: dog(s) Sexually active: No What is your relationship status?: How often do you get together with friends or relatives?: once per week Panel score (0-1 are the most socially isolated patients): 0 What type of physical activity do you participate in: walking Do you feel safe at home: Yes Do you feel safe in your relationship?: Yes Meds Allergies and Home Medications Allergies Allergy/AdvReac Type Severity Reaction Status Date / Time morphine AdvReac Intermediate Narcotic Verified 06/05/23 23:30 induced constipation Home Medications Medication Instructions Recorded Confirmed Type multivitamin (Daily Multi-Vitamin 1 ea PO DAILY 10/29/16 06/05/23 History tablet) aspirin 81 mg tablet,delayed 81 mg PO DAILY #90 tabs 11/14/20 06/05/23 Rx release metronidazole 0.75 % topical cream 1 applic topical QHS #45 grams 01/09/22 06/05/23 Rx ascorbic acid (vitamin C) 1,000 mg 1 g PO DAILY 05/21/22 06/05/23 History capsule blood sugar diagnostic (FreeStyle #360 ea 10/03/22 06/06/23 Rx Test strips) metoprolol tartrate 25 mg tablet 25 mg PO Q12H #180 tabs 10/08/22 06/05/23 Rx thiamine mononitrate (vit B1) 100 100 mg PO QAM #90 tabs 10/08/22 06/05/23 Rx mg tablet (Vitamin B-1 (mononitrate)) allopurinol 300 mg tablet 300 mg PO DAILY 11/04/22 06/05/23 History folic acid 1 mg tablet 1 mg PO QAM #90 tabs 11/04/22 06/05/23 Rx magnesium chloride 64 mg 64 mg PO BID #60 tabs 11/25/22 06/05/23 Rx (magnesium chloride) tablet,delayed release (Mag 64) pen needle,diabetic dual safty 30 #400 ea 01/02/23 06/05/23 Rx gauge x 3/16 (BD AutoShield Duo Pen Needle) tadalafil 10 mg tablet 10 mg PO ONCE PRN sexual activity 02/02/23 06/05/23 Rx #10 tabs blood-glucose sensor (Dexcom G7 #1 ea 03/19/23 06/06/23 Rx Sensor device) empagliflozin 25 mg tablet 25 mg PO QAM #90 tabs 03/19/23 06/05/23 Rx (Jardiance) insulin lispro 100 unit/mL 1 sliding scale dose subcut 03/19/23 06/05/23 Rx subcutaneous pen (Humalog KwikPen USEASDIRECTD #15 mL (U-100) Insulin) insulin glargine-yfgn 100 unit/mL 35 unit (0.35 mL) subcut QPM #15 mL 04/09/23 06/05/23 Rx (3 mL) subcutaneous pen (Semglee (insulin glargine-yfgn) Pen) Exam Narrative Exam Narrative: Well-appearing gentleman laying in bed in no acute distress, ANO x 4, strong smell of ketones coming from patient's breath, heart regular rhythm, lungs clear to auscultation bilaterally, abdomen soft, nontender, nondistended Results Labs 06/06/23 00:03 06/06/23 11:28 Labs: Laboratory Results - last 24 hr 06/06/23 06/06/23 06/06/23 00:03 00:56 01:35 WBC 6.20 RBC 5.43 Hgb 18.0 H Hct 55.0 H MCV 101 H MCH 33.1 H MCHC 32.7 RDW 13.4 Plt Count 161 MPV 9.6 Immature Gran % 0.2 Neutrophils % 51.7 Lymphocytes % 36.3 Monocytes % 9.4 Eosinophils % 1.6 Basophils % 0.8 Nucleated RBC % 0.0 Absolute Neutrophils 3.21 Absolute Lymphocytes 2.25 Absolute Monocytes 0.58 Absolute Eosinophils 0.10 Absolute Basophils 0.05 VBG pH 7.19 L* VBG pCO2 26 L VBG pO2 52 VBG HCO3 10 L VBG Total CO2 9 L VBG O2 Saturation 85 VBG Base Excess -18 L VBG Lactate 2.1 H Sodium Cancelled 134 L Potassium Cancelled 5.0 Chloride Cancelled 92 L Carbon Dioxide Cancelled 11.3 L Anion Gap Cancelled 30.7 H BUN Cancelled 19 H Creatinine Cancelled 1.4 H Est GFR (CKD-EPI 2020) Cancelled 58.99 Glucose Cancelled 182 H Calcium Cancelled 11.7 H* Phosphorus Magnesium Cancelled 1.7 L Total Bilirubin Cancelled 1.1 H AST Cancelled 61 H ALT Cancelled 40 Alkaline Phosphatase Cancelled 113 Troponin I Cancelled < 50 Total Protein Cancelled 9.6 H Albumin Cancelled 4.9 Lipase 76 Urine Color Yellow Urine Clarity Clear Urine pH 5.0 Ur Specific [place] >= 1.030 H Urine Protein 30 H Urine Ketones >=160 H Urine Blood Trace-lysed H Urine Nitrite Negative Urine Bilirubin Small H Urine Urobilinogen 0.2 Ur Leukocyte Esterase Negative Urine RBC 3-5 H Urine WBC Negative Ur Epithelial Cells Negative Urine Crystals Negative Urine Bacteria Rare Urine Casts Negative Urine Mucus Negative Ur Culture Indicated? No Urine Glucose 500 H Salicylates Acetaminophen < 2 Ethyl Alcohol COVID-19 Source SARS-CoV-2 (PCR) Influenza Type A (PCR) Influenza Type B (PCR) RSV (PCR) 06/06/23 06/06/23 06/06/23 03:10 04:35 05:10 WBC RBC Hgb Hct MCV MCH MCHC RDW Plt Count MPV Immature Gran % Neutrophils % Lymphocytes % Monocytes % Eosinophils % Basophils % Nucleated RBC % Absolute Neutrophils Absolute Lymphocytes Absolute Monocytes Absolute Eosinophils Absolute Basophils VBG pH VBG pCO2 VBG pO2 VBG HCO3 VBG Total CO2 VBG O2 Saturation VBG Base Excess VBG Lactate Sodium 135 L 136 Potassium 4.6 3.9 Chloride 98 99 Carbon Dioxide 11.6 L 13.9 L Anion Gap 25.4 H 23.1 H BUN 19 H 19 H Creatinine 1.3 1.2 Est GFR (CKD-EPI 2020) 64.47 70.98 Glucose 160 H 159 H Calcium 9.2 9.1 Phosphorus 4.3 Magnesium Total Bilirubin AST ALT Alkaline Phosphatase Troponin I Total Protein Albumin Lipase Urine Color Urine Clarity Urine pH Ur Specific [place] Urine Protein Urine Ketones Urine Blood Urine Nitrite Urine Bilirubin Urine Urobilinogen Ur Leukocyte Esterase Urine RBC Urine WBC Ur Epithelial Cells Urine Crystals Urine Bacteria Urine Casts Urine Mucus Ur Culture Indicated? Urine Glucose Salicylates 5.0 Acetaminophen Ethyl Alcohol < 3.0 COVID-19 Source Nasopharynx SARS-CoV-2 (PCR) Negative Influenza Type A (PCR) Negative Influenza Type B (PCR) Negative RSV (PCR) Negative 06/06/23 06:55 WBC RBC Hgb Hct MCV MCH MCHC RDW Plt Count MPV Immature Gran % Neutrophils % Lymphocytes % Monocytes % Eosinophils % Basophils % Nucleated RBC % Absolute Neutrophils Absolute Lymphocytes Absolute Monocytes Absolute Eosinophils Absolute Basophils VBG pH VBG pCO2 VBG pO2 VBG HCO3 VBG Total CO2 VBG O2 Saturation VBG Base Excess VBG Lactate Sodium 139 Potassium 4.0 Chloride 102 Carbon Dioxide 14.0 L Anion Gap 23.0 H BUN 18 Creatinine 1.3 Est GFR (CKD-EPI 2020) 64.47 Glucose 142 H Calcium 9.0 Phosphorus Magnesium Total Bilirubin AST ALT Alkaline Phosphatase Troponin I Total Protein Albumin Lipase Urine Color Urine Clarity Urine pH Ur Specific [place] Urine Protein Urine Ketones Urine Blood Urine Nitrite Urine Bilirubin Urine Urobilinogen Ur Leukocyte Esterase Urine RBC Urine WBC Ur Epithelial Cells Urine Crystals Urine Bacteria Urine Casts Urine Mucus Ur Culture Indicated? Urine Glucose Salicylates Acetaminophen Ethyl Alcohol COVID-19 Source SARS-CoV-2 (PCR) Influenza Type A (PCR) Influenza Type B (PCR) RSV (PCR) Last Vital Signs Temp 97.3 F L 06/05/23 23:32 Pulse 75 06/06/23 07:01 Resp 16 06/06/23 07:02 BP 137/83 06/06/23 07:01 Pulse Ox 96 06/06/23 07:02 PAWSS Have you Been Recently Intoxicated or Drunk Within the Last 30 days?: No Have you Ever Experienced Previous Episodes of Alcohol Withdrawal?: No Have you ever Experienced Withdrawal Seizures?: No Have you ever Experienced Delirium Tremens(DT)s?: No Have you ever undergone Alcohol Rehabilitation Treatment (i.e, inpt ot outpatient treatment programs)?: No Have you ever Experienced Blackouts?: No Have you ever Combined Alcohol with other Downers within the last 90 days?: No Have you ever Combined Alcohol with any other Substance of Abuse during the last 90 days?: No Positive Blood Alcohol level on Presentation? [PCS.BAL]: No Evidence of Increased Autonomic Activity (i.e. HR>120, tremor, sweating, agitation, nausea)?: No Result: 0 Time Spent Time spent with Patient: >75 minutes Time was spent: preparing to see the patient(eg.review tests), obtaining and/or reviewing separately otained hiistory, ordering medications,tests, procedures, referring, communicating with other health resident care technician, indepentently interpreting results, counseling the patient and care coordination
[2023-06-06 08:28] LABS: BE (Venous) -12 mmol/L (-2-3); HCO3 (Venous) 15 mmol/L (23-28); O2 Sat (Venous) 90 %; TCO2 (Venous) 14 mmol/L (24-29); pCO2 (Venous) 34 mmHg (41-51); pH (Venous) 7.25 (7.31-7.41); pO2 (Venous) 58 mmHg
[2023-06-06 11:32] LABS: BE (Venous) -7 mmol/L (-2-3); HCO3 (Venous) 20 mmol/L (23-28); O2 Sat (Venous) 74 %; TCO2 (Venous) 18 mmol/L (24-29); pCO2 (Venous) 43 mmHg (41-51); pH (Venous) 7.28 (7.31-7.41); pO2 (Venous) 39 mmHg
[2023-06-06 11:43] LABS: Anion Gap 13.5 mmol/L (3-11); BUN 16 mg/dL (7-18); CO2 20.5 mmol/L (21.0-32.0); CREATININE 1.3 mg/dL (0.70-1.30); Chloride 104 mmol/L (98-107); Estimated GFR 64.47 (mL/min/1.73m2); Glucose 104 mg/dL (74-106); Potassium 4.1 mmol/L (3.5-5.1); Sodium 138 mmol/L (136-145)
--- NOTE | 2023-06-06 11:50 | W.PC.ACHO ---
Registration Status: REG ER Primary Language: Preferred Language: Czech ED Information & Data Chief Complaint Nausea/Vomit/Diar 06/06/23 01:12 Triage Note Since Thursday has had poor 06/05/23 23:32 appetite, nausea, vomiting, very thirsty, fatigue, abd pain. Medical / Surgical History (Last Updated 02/04/23 @ 16:18 by Janessa Cantrell MD) History of alcohol use disorder Palliative care encounter History of acute gouty arthritis Diabetic acidosis, type I Atrial fibrillation Cerebellar lesion Depression Acute pancreatitis (12/19/13) (Last Reviewed 09/23/22 @ 16:23 by David Camp MD) H/O arthroscopy of right knee Most Recent Vital Signs Temperature 36.3 C L 06/05/23 23:32 Temperature Source Temporal Artery Scan 06/05/23 23:32 Pulse 75 06/06/23 07:30 Pulse 76 06/06/23 07:50 Respiratory Rate 16 06/06/23 07:50 Respiratory Effort Normal, Non-Labored 06/05/23 23:34 Blood Pressure 119/79 06/06/23 07:30 Blood Pressure Mean 88 06/06/23 07:30 Blood Pressure Position Sitting 06/05/23 23:32 Pulse Oximetry 100 06/06/23 07:40 Oxygen Delivery Method Room Air 06/06/23 07:02 Oxygen Flow Rate 0 06/06/23 07:02 Pain Level 0 06/06/23 04:00 Allergies morphine Adverse Reaction (Intermediate, Verified 06/05/23 23:30) Narcotic induced constipation Narcotic induced constipation Precautions Isolation Standard precaution 06/05/23 23:34 Active Medications Generic Name Dose Route Start Last Admin Trade Name Zackeryq PRN Reason Stop Dose Admin Dextrose/Sodium Chloride 1,000 mls @ 0 mls/hr 06/06/23 02:00 06/06/23 05:55 Dextrose 5%-0.45% Ns IV 0 mls/hr INFUSION ASHLEY Infusion Per Protocol Insulin Human Regular 100 unit in 100 mls @ 2 mls/hr 06/06/23 02:00 06/06/23 11:04 Myxredlin IV 4.5 unit/hr INFUSION ASHLEY 4.5 mls/hr Titration Protocol 2 UNIT/HR Potassium Chloride/Sodium Chloride 1,000 mls @ 150 mls/hr 06/06/23 04:15 06/06/23 05:54 Kcl 40meq/D5-0.45% Nacl IV 150 mls/hr INFUSION ASHLEY Administration Iohexol 100 ml 06/06/23 03:15 06/06/23 03:07 Omnipaque 350 Mg/Ml 100 Ml Btl IJ 07/06/23 23:59 100 ml DIRECTED ASHLEY Administration Lorazepam 2 mg 06/06/23 03:37 06/06/23 03:55 Lorazepam 1 Mg Tab PO 2 mg QID PRN PRN Administration Lorazepam 1 mg 06/06/23 03:59 06/06/23 06:34 Lorazepam 2 Mg/Ml Vial IVP 1 mg Q2H PRN PRN Administration Ondansetron HCl 4 mg 06/06/23 04:00 06/06/23 04:11 Ondansetron 4 Mg/2 Ml Vial IVP 4 mg Q8H PRN PRN Administration Sodium Chloride 50 ml 06/06/23 03:15 06/06/23 03:07 Normal Saline - Diluent 50 Ml Vial IJ 50 ml .FOR DI USE ASHLEY Administration IV IV Catheter Type [Left Saline Lock Antecubital] IV Catheter Type [Right Peripheral IV Antecubital] IV Catheter Type [Right Hand] Saline Lock IV Catheter Gauge [Left 20 Antecubital] IV Catheter Gauge [Right 18 Antecubital] IV Catheter Gauge [Right Hand] 18 Diagnostics 06/06/23 06/06/23 06/06/23 Range/Units 18:00 16:00 14:00 WBC (4.4-10.8) 10^3/uL RBC (4.36-5.78) 10^6/uL Hgb (13.5-17.5) g/dL Hct (40.0-50.0) % MCV (80-95) fL MCH (27.0-33.0) pg MCHC (32.0-36.0) % RDW (11.8-14.1) % Plt Count (130-400) 10^3/uL MPV (8.0-11.0) fL Immature Gran % Neutrophils % Lymphocytes % Monocytes % Eosinophils % Basophils % Nucleated RBC % (0.0-0.3) % Absolute Neutrophils (1.2-6.7) 10^3/uL Absolute Lymphocytes (1.2-3.4) 10^3/uL Absolute Monocytes (0.1-0.8) 10^3/uL Absolute Eosinophils (0.0-0.7) 10^3/uL Absolute Basophils (0.0-0.2) 10^3/uL VBG pH (7.31-7.41) VBG pCO2 (41-51) mmHg VBG pO2 mmHg VBG HCO3 (23-28) mmol/L VBG Total CO2 (24-29) mmol/L VBG O2 Saturation % VBG Base Excess (-2-3) mmol/L VBG Lactate (0.6-1.4) mmol/L Sodium Cancelled Cancelled Cancelled Potassium Cancelled Cancelled Cancelled Chloride Cancelled Cancelled Cancelled Carbon Dioxide Cancelled Cancelled Cancelled Anion Gap Cancelled Cancelled Cancelled BUN Cancelled Cancelled Cancelled Creatinine Cancelled Cancelled Cancelled Est GFR (CKD-EPI 2020) Cancelled Cancelled Cancelled Glucose Cancelled Cancelled Cancelled Calcium Cancelled Cancelled Cancelled Phosphorus (2.6-4.7) mg/dL Magnesium Total Bilirubin AST ALT Alkaline Phosphatase Troponin I Total Protein Albumin Lipase (16-77) U/L Urine Color (Yellow) Urine Clarity (Clear) Urine pH (5-8) Ur Specific [place] (1.005-1.025) Urine Protein (Neg-Trace) mg/dL Urine Ketones (Negative) mg/dL Urine Blood (Negative) Urine Nitrite (Negative) Urine Bilirubin (Negative) Urine Urobilinogen (Up to 0.2) mg/dL Ur Leukocyte Esterase (Negative) Urine RBC (0-2) HPF Urine WBC (0-5) HPF Ur Epithelial Cells (Negative) HPF Urine Crystals (Negative) HPF Urine Bacteria (Negative) HPF Urine Casts (Negative) LPF Urine Mucus (Negative) Ur Culture Indicated? Urine Glucose (Negative) mg/dL Salicylates (<2.8) mg/dL Acetaminophen (10-30) ug/mL Ethyl Alcohol (<10) mg/dL COVID-19 Source SARS-CoV-2 (PCR) (Negative) Influenza Type A (PCR) (Negative) Influenza Type B (PCR) (Negative) RSV (PCR) (Negative) 06/06/23 06/06/23 06/06/23 Range/Units 12:00 11:28 10:00 WBC (4.4-10.8) 10^3/uL RBC (4.36-5.78) 10^6/uL Hgb (13.5-17.5) g/dL Hct (40.0-50.0) % MCV (80-95) fL MCH (27.0-33.0) pg MCHC (32.0-36.0) % RDW (11.8-14.1) % Plt Count (130-400) 10^3/uL MPV (8.0-11.0) fL Immature Gran % Neutrophils % Lymphocytes % Monocytes % Eosinophils % Basophils % Nucleated RBC % (0.0-0.3) % Absolute Neutrophils (1.2-6.7) 10^3/uL Absolute Lymphocytes (1.2-3.4) 10^3/uL Absolute Monocytes (0.1-0.8) 10^3/uL Absolute Eosinophils (0.0-0.7) 10^3/uL Absolute Basophils (0.0-0.2) 10^3/uL VBG pH 7.28 L (7.31-7.41) VBG pCO2 43 (41-51) mmHg VBG pO2 39 mmHg VBG HCO3 20 L (23-28) mmol/L VBG Total CO2 18 L (24-29) mmol/L VBG O2 Saturation 74 % VBG Base Excess -7 L (-2-3) mmol/L VBG Lactate (0.6-1.4) mmol/L Sodium Cancelled Pending Cancelled Potassium Cancelled Pending Cancelled Chloride Cancelled Pending Cancelled Carbon Dioxide Cancelled Pending Cancelled Anion Gap Cancelled Pending Cancelled BUN Cancelled Pending Cancelled Creatinine Cancelled Pending Cancelled Est GFR (CKD-EPI 2020) Cancelled Pending Cancelled Glucose Cancelled Pending Cancelled Calcium Cancelled Pending Cancelled Phosphorus (2.6-4.7) mg/dL Magnesium Total Bilirubin AST ALT Alkaline Phosphatase Troponin I Total Protein Albumin Lipase (16-77) U/L Urine Color (Yellow) Urine Clarity (Clear) Urine pH (5-8) Ur Specific [place] (1.005-1.025) Urine Protein (Neg-Trace) mg/dL Urine Ketones (Negative) mg/dL Urine Blood (Negative) Urine Nitrite (Negative) Urine Bilirubin (Negative) Urine Urobilinogen (Up to 0.2) mg/dL Ur Leukocyte Esterase (Negative) Urine RBC (0-2) HPF Urine WBC (0-5) HPF Ur Epithelial Cells (Negative) HPF Urine Crystals (Negative) HPF Urine Bacteria (Negative) HPF Urine Casts (Negative) LPF Urine Mucus (Negative) Ur Culture Indicated? Urine Glucose (Negative) mg/dL Salicylates (<2.8) mg/dL Acetaminophen (10-30) ug/mL Ethyl Alcohol (<10) mg/dL COVID-19 Source SARS-CoV-2 (PCR) (Negative) Influenza Type A (PCR) (Negative) Influenza Type B (PCR) (Negative) RSV (PCR) (Negative) 06/06/23 06/06/23 06/06/23 Range/Units 08:20 08:00 06:55 WBC (4.4-10.8) 10^3/uL RBC (4.36-5.78) 10^6/uL Hgb (13.5-17.5) g/dL Hct (40.0-50.0) % MCV (80-95) fL MCH (27.0-33.0) pg MCHC (32.0-36.0) % RDW (11.8-14.1) % Plt Count (130-400) 10^3/uL MPV (8.0-11.0) fL Immature Gran % Neutrophils % Lymphocytes % Monocytes % Eosinophils % Basophils % Nucleated RBC % (0.0-0.3) % Absolute Neutrophils (1.2-6.7) 10^3/uL Absolute Lymphocytes (1.2-3.4) 10^3/uL Absolute Monocytes (0.1-0.8) 10^3/uL Absolute Eosinophils (0.0-0.7) 10^3/uL Absolute Basophils (0.0-0.2) 10^3/uL VBG pH 7.25 L (7.31-7.41) VBG pCO2 34 L (41-51) mmHg VBG pO2 58 mmHg VBG HCO3 15 L (23-28) mmol/L VBG Total CO2 14 L (24-29) mmol/L VBG O2 Saturation 90 % VBG Base Excess -12 L (-2-3) mmol/L VBG Lactate (0.6-1.4) mmol/L Sodium Cancelled 139 Potassium Cancelled 4.0 Chloride Cancelled 102 Carbon Dioxide Cancelled 14.0 L Anion Gap Cancelled 23.0 H BUN Cancelled 18 Creatinine Cancelled 1.3 Est GFR (CKD-EPI 2020) Cancelled 64.47 Glucose Cancelled 142 H Calcium Cancelled 9.0 Phosphorus (2.6-4.7) mg/dL Magnesium Total Bilirubin AST ALT Alkaline Phosphatase Troponin I Total Protein Albumin Lipase (16-77) U/L Urine Color (Yellow) Urine Clarity (Clear) Urine pH (5-8) Ur Specific [place] (1.005-1.025) Urine Protein (Neg-Trace) mg/dL Urine Ketones (Negative) mg/dL Urine Blood (Negative) Urine Nitrite (Negative) Urine Bilirubin (Negative) Urine Urobilinogen (Up to 0.2) mg/dL Ur Leukocyte Esterase (Negative) Urine RBC (0-2) HPF Urine WBC (0-5) HPF Ur Epithelial Cells (Negative) HPF Urine Crystals (Negative) HPF Urine Bacteria (Negative) HPF Urine Casts (Negative) LPF Urine Mucus (Negative) Ur Culture Indicated? Urine Glucose (Negative) mg/dL Salicylates (<2.8) mg/dL Acetaminophen (10-30) ug/mL Ethyl Alcohol (<10) mg/dL COVID-19 Source SARS-CoV-2 (PCR) (Negative) Influenza Type A (PCR) (Negative) Influenza Type B (PCR) (Negative) RSV (PCR) (Negative) 06/06/23 06/06/23 06/06/23 Range/Units 06:00 05:10 04:35 WBC (4.4-10.8) 10^3/uL RBC (4.36-5.78) 10^6/uL Hgb (13.5-17.5) g/dL Hct (40.0-50.0) % MCV (80-95) fL MCH (27.0-33.0) pg MCHC (32.0-36.0) % RDW (11.8-14.1) % Plt Count (130-400) 10^3/uL MPV (8.0-11.0) fL Immature Gran % Neutrophils % Lymphocytes % Monocytes % Eosinophils % Basophils % Nucleated RBC % (0.0-0.3) % Absolute Neutrophils (1.2-6.7) 10^3/uL Absolute Lymphocytes (1.2-3.4) 10^3/uL Absolute Monocytes (0.1-0.8) 10^3/uL Absolute Eosinophils (0.0-0.7) 10^3/uL Absolute Basophils (0.0-0.2) 10^3/uL VBG pH (7.31-7.41) VBG pCO2 (41-51) mmHg VBG pO2 mmHg VBG HCO3 (23-28) mmol/L VBG Total CO2 (24-29) mmol/L VBG O2 Saturation % VBG Base Excess (-2-3) mmol/L VBG Lactate (0.6-1.4) mmol/L Sodium Cancelled 136 Potassium Cancelled 3.9 Chloride Cancelled 99 Carbon Dioxide Cancelled 13.9 L Anion Gap Cancelled 23.1 H BUN Cancelled 19 H Creatinine Cancelled 1.2 Est GFR (CKD-EPI 2020) Cancelled 70.98 Glucose Cancelled 159 H Calcium Cancelled 9.1 Phosphorus (2.6-4.7) mg/dL Magnesium Total Bilirubin AST ALT Alkaline Phosphatase Troponin I Total Protein Albumin Lipase (16-77) U/L Urine Color (Yellow) Urine Clarity (Clear) Urine pH (5-8) Ur Specific [place] (1.005-1.025) Urine Protein (Neg-Trace) mg/dL Urine Ketones (Negative) mg/dL Urine Blood (Negative) Urine Nitrite (Negative) Urine Bilirubin (Negative) Urine Urobilinogen (Up to 0.2) mg/dL Ur Leukocyte Esterase (Negative) Urine RBC (0-2) HPF Urine WBC (0-5) HPF Ur Epithelial Cells (Negative) HPF Urine Crystals (Negative) HPF Urine Bacteria (Negative) HPF Urine Casts (Negative) LPF Urine Mucus (Negative) Ur Culture Indicated? Urine Glucose (Negative) mg/dL Salicylates (<2.8) mg/dL Acetaminophen (10-30) ug/mL Ethyl Alcohol (<10) mg/dL COVID-19 Source Nasopharynx SARS-CoV-2 (PCR) Negative (Negative) Influenza Type A (PCR) Negative (Negative) Influenza Type B (PCR) Negative (Negative) RSV (PCR) Negative (Negative) 06/06/23 06/06/23 06/06/23 Range/Units 04:00 03:10 01:35 WBC (4.4-10.8) 10^3/uL RBC (4.36-5.78) 10^6/uL Hgb (13.5-17.5) g/dL Hct (40.0-50.0) % MCV (80-95) fL MCH (27.0-33.0) pg MCHC (32.0-36.0) % RDW (11.8-14.1) % Plt Count (130-400) 10^3/uL MPV (8.0-11.0) fL Immature Gran % Neutrophils % Lymphocytes % Monocytes % Eosinophils % Basophils % Nucleated RBC % (0.0-0.3) % Absolute Neutrophils (1.2-6.7) 10^3/uL Absolute Lymphocytes (1.2-3.4) 10^3/uL Absolute Monocytes (0.1-0.8) 10^3/uL Absolute Eosinophils (0.0-0.7) 10^3/uL Absolute Basophils (0.0-0.2) 10^3/uL VBG pH (7.31-7.41) VBG pCO2 (41-51) mmHg VBG pO2 mmHg VBG HCO3 (23-28) mmol/L VBG Total CO2 (24-29) mmol/L VBG O2 Saturation % VBG Base Excess (-2-3) mmol/L VBG Lactate (0.6-1.4) mmol/L Sodium Cancelled 135 L Potassium Cancelled 4.6 Chloride Cancelled 98 Carbon Dioxide Cancelled 11.6 L Anion Gap Cancelled 25.4 H BUN Cancelled 19 H Creatinine Cancelled 1.3 Est GFR (CKD-EPI 2020) Cancelled 64.47 Glucose Cancelled 160 H Calcium Cancelled 9.2 Phosphorus 4.3 (2.6-4.7) mg/dL Magnesium Total Bilirubin AST ALT Alkaline Phosphatase Troponin I Total Protein Albumin Lipase (16-77) U/L Urine Color Yellow (Yellow) Urine Clarity Clear (Clear) Urine pH 5.0 (5-8) Ur Specific [place] >= 1.030 H (1.005-1.025) Urine Protein 30 H (Neg-Trace) mg/dL Urine Ketones >=160 H (Negative) mg/dL Urine Blood Trace-lysed H (Negative) Urine Nitrite Negative (Negative) Urine Bilirubin Small H (Negative) Urine Urobilinogen 0.2 (Up to 0.2) mg/dL Ur Leukocyte Esterase Negative (Negative) Urine RBC 3-5 H (0-2) HPF Urine WBC Negative (0-5) HPF Ur Epithelial Cells Negative (Negative) HPF Urine Crystals Negative (Negative) HPF Urine Bacteria Rare (Negative) HPF Urine Casts Negative (Negative) LPF Urine Mucus Negative (Negative) Ur Culture Indicated? No Urine Glucose 500 H (Negative) mg/dL Salicylates 5.0 (<2.8) mg/dL Acetaminophen (10-30) ug/mL Ethyl Alcohol < 3.0 (<10) mg/dL COVID-19 Source SARS-CoV-2 (PCR) (Negative) Influenza Type A (PCR) (Negative) Influenza Type B (PCR) (Negative) RSV (PCR) (Negative) 06/06/23 06/06/23 Range/Units 00:56 00:03 WBC 6.20 (4.4-10.8) 10^3/uL RBC 5.43 (4.36-5.78) 10^6/uL Hgb 18.0 H (13.5-17.5) g/dL Hct 55.0 H (40.0-50.0) % MCV 101 H (80-95) fL MCH 33.1 H (27.0-33.0) pg MCHC 32.7 (32.0-36.0) % RDW 13.4 (11.8-14.1) % Plt Count 161 (130-400) 10^3/uL MPV 9.6 (8.0-11.0) fL Immature Gran % 0.2 Neutrophils % 51.7 Lymphocytes % 36.3 Monocytes % 9.4 Eosinophils % 1.6 Basophils % 0.8 Nucleated RBC % 0.0 (0.0-0.3) % Absolute Neutrophils 3.21 (1.2-6.7) 10^3/uL Absolute Lymphocytes 2.25 (1.2-3.4) 10^3/uL Absolute Monocytes 0.58 (0.1-0.8) 10^3/uL Absolute Eosinophils 0.10 (0.0-0.7) 10^3/uL Absolute Basophils 0.05 (0.0-0.2) 10^3/uL VBG pH 7.19 L* (7.31-7.41) VBG pCO2 26 L (41-51) mmHg VBG pO2 52 mmHg VBG HCO3 10 L (23-28) mmol/L VBG Total CO2 9 L (24-29) mmol/L VBG O2 Saturation 85 % VBG Base Excess -18 L (-2-3) mmol/L VBG Lactate 2.1 H (0.6-1.4) mmol/L Sodium 134 L Cancelled Potassium 5.0 Cancelled Chloride 92 L Cancelled Carbon Dioxide 11.3 L Cancelled Anion Gap 30.7 H Cancelled BUN 19 H Cancelled Creatinine 1.4 H Cancelled Est GFR (CKD-EPI 2020) 58.99 Cancelled Glucose 182 H Cancelled Calcium 11.7 H* Cancelled Phosphorus (2.6-4.7) mg/dL Magnesium 1.7 L Cancelled Total Bilirubin 1.1 H Cancelled AST 61 H Cancelled ALT 40 Cancelled Alkaline Phosphatase 113 Cancelled Troponin I < 50 Cancelled Total Protein 9.6 H Cancelled Albumin 4.9 Cancelled Lipase 76 (16-77) U/L Urine Color (Yellow) Urine Clarity (Clear) Urine pH (5-8) Ur Specific [place] (1.005-1.025) Urine Protein (Neg-Trace) mg/dL Urine Ketones (Negative) mg/dL Urine Blood (Negative) Urine Nitrite (Negative) Urine Bilirubin (Negative) Urine Urobilinogen (Up to 0.2) mg/dL Ur Leukocyte Esterase (Negative) Urine RBC (0-2) HPF Urine WBC (0-5) HPF Ur Epithelial Cells (Negative) HPF Urine Crystals (Negative) HPF Urine Bacteria (Negative) HPF Urine Casts (Negative) LPF Urine Mucus (Negative) Ur Culture Indicated? Urine Glucose (Negative) mg/dL Salicylates (<2.8) mg/dL Acetaminophen < 2 (10-30) ug/mL Ethyl Alcohol (<10) mg/dL COVID-19 Source SARS-CoV-2 (PCR) (Negative) Influenza Type A (PCR) (Negative) Influenza Type B (PCR) (Negative) RSV (PCR) (Negative) 06/06/23 00:56 Blood Culture - Pending Blood 06/06/23 00:56 Blood Culture - Pending Blood [id number] Documentation Fingerstick Glucose Start: 06/05/23 23:40 Freq: .Stat Status: Active Protocol: Activity Type Activity Date Activity User E-sign Co-sign Detail Recorded Client Recorded Date Recorded By Document 06/05/23 23:50 BKG DAEMON(5) NVT-BG05 06/05/23 23:50 BKG DAEMON(6) Fingerstick Glucose Start: 06/06/23 02:00 Freq: .Q1H Status: Active Protocol: Activity Type Activity Date Activity User E-sign Co-sign Detail Recorded Client Recorded Date Recorded By Document 06/06/23 11:02 BKG DAEMON(7) NVT-BG05 06/06/23 11:03 BKG DAEMON(8) Intake and Output - 24 Hour Total 06/05/23 23:18 thru 06/06/23 11:04 Intake Total 2514.142 Output Total 325 Balance 2189.142 Weight 90.718 kg Intake: IV 2514.142 Output: Urine 325 Other: Stool Size Small Stool Characteristics Soft Formed Emesis Description Bile Falls Risk Assessment History of Falls No History 06/05/23 23:34 Contributing Factors No Factors 06/05/23 23:34 Ambulatory Aids Independent 06/05/23 23:34 Tubes/Lines None 06/05/23 23:34 Gait Evaluation No gait disturbance 06/05/23 23:34 Cognition No cognitive impairment 06/05/23 23:34 Fall Total Score 0 06/05/23 23:34 Level of Risk Standard/Low Risk 06/05/23 23:34 Problems (Last Updated 02/04/23 @ 16:18 by Janessa Cantrell MD) Hypercalcemia (Acute) Ketoacidosis (Acute) v v v v v v v v v Sending and/or Receiving Nurses: Please use comment section below to note any information pertinent to the patient hand-off not included above. Information / Comments: Report received from:
[2023-06-06] MEDS: Dextrose 50%-Water 25 GM/50 ML SYR (13:06)
[2023-06-06 15:08] LABS: Anion Gap 14.3 mmol/L (3-11); BUN 15 mg/dL (7-18); CO2 21.7 mmol/L (21.0-32.0); CREATININE 1.2 mg/dL (0.70-1.30); Calcium 9.2 mg/dL (8.5-10.1); Chloride 103 mmol/L (98-107); Estimated GFR 70.98 (mL/min/1.73m2); Glucose 128 mg/dL (74-106); Sodium 139 mmol/L (136-145)
[2023-06-06] MEDS: Normal Saline Flush 10 ML SYR IVP ×2 (15:37→20:00)
[2023-06-06 17:06] LABS: Anion Gap 13.1 mmol/L (3-11); BUN 14 mg/dL (7-18); CO2 21.9 mmol/L (21.0-32.0); CREATININE 1.2 mg/dL (0.70-1.30); Calcium 9.1 mg/dL (8.5-10.1); Chloride 104 mmol/L (98-107); Estimated GFR 70.98 (mL/min/1.73m2); Glucose 103 mg/dL (74-106); Potassium 3.7 mmol/L (3.5-5.1); Sodium 139 mmol/L (136-145)
[2023-06-06 19:05] LABS: BUN 13 mg/dL (7-18); CREATININE 1.2 mg/dL (0.70-1.30); Calcium 9.4 mg/dL (8.5-10.1); Chloride 103 mmol/L (98-107); Estimated GFR 70.98 (mL/min/1.73m2); Glucose 99 mg/dL (74-106); Potassium 3.9 mmol/L (3.5-5.1); Sodium 140 mmol/L (136-145)
[2023-06-06] MEDS: Metoprolol 12.5 MG TAB 25 MG PO (20:00)
[2023-06-06] MEDS: Magnesium Chloride 64 MG TABCR PO (20:00)
[2023-06-06 21:06] LABS: Anion Gap 11.8 mmol/L (3-11); BUN 13 mg/dL (7-18); CO2 22.2 mmol/L (21.0-32.0); CREATININE 1.1 mg/dL (0.70-1.30); Chloride 104 mmol/L (98-107); Estimated GFR 78.79 (mL/min/1.73m2); Glucose 102 mg/dL (74-106); Potassium 3.8 mmol/L (3.5-5.1); Sodium 138 mmol/L (136-145)
[2023-06-06 23:55] LABS: ALT 31 U/L (16-63); AST 39 U/L (15-37); Albumin 3.5 g/dL (3.4-5.0); Alkaline Phosphatase 83 U/L (46-116); Anion Gap 10.5 mmol/L (3-11); BUN 12 mg/dL (7-18); CO2 22.5 mmol/L (21.0-32.0); CREATININE 1.1 mg/dL (0.70-1.30); Chloride 104 mmol/L (98-107); Estimated GFR 78.79 (mL/min/1.73m2); Glucose 100 mg/dL (74-106); Potassium 4.4 mmol/L (3.5-5.1); Sodium 137 mmol/L (136-145); Total Protein 7.2 g/dL (6.4-8.2)
[2023-06-07] VITALS (58 sets, daily range): BP systolic 118–132; BP diastolic 72–96; PULSE 71–86; RESP 9–33; TEMP 36.3–36.6; O2SAT 99
[2023-06-07] MEDS: Insulin Glargine 300 UNITS/3 ML PEN 10 UNITS SC (01:11)
[2023-06-07] MEDS: LORazepam 1 MG TAB 2 MG PO (01:25)
[2023-06-07] MEDS: Normal Saline Flush 10 ML SYR IVP ×2 (02:56→08:15)
[2023-06-07 06:49] LABS: HCT 49.2 % (40.0-50.0); HGB 16.7 g/dL (13.5-17.5); MCH 33.1 pg (27.0-33.0); MCHC 33.9 % (32.0-36.0); MCV 98 fL (80-95); MPV 10.2 fL (8.0-11.0); Platelet Count 128 10^3/uL (130-400); RBC 5.04 10^6/uL (4.36-5.78); RDW 13.5 % (11.8-14.1); RDW-SD 49.2 fL; WBC 7.89 10^3/uL (4.4-10.8)
[2023-06-07 07:07] LABS: ALT 29 U/L (16-63); AST 33 U/L (15-37); Albumin 3.6 g/dL (3.4-5.0); Alkaline Phosphatase 89 U/L (46-116); Anion Gap 12.1 mmol/L (3-11); BUN 10 mg/dL (7-18); Bilirubin, Total 1.1 mg/dL (0.2-1.0); CO2 21.9 mmol/L (21.0-32.0); CREATININE 1.1 mg/dL (0.70-1.30); Calcium 9.3 mg/dL (8.5-10.1); Chloride 104 mmol/L (98-107); Estimated GFR 78.79 (mL/min/1.73m2); Glucose 135 mg/dL (74-106); Potassium 3.9 mmol/L (3.5-5.1); Sodium 138 mmol/L (136-145); Total Protein 7.2 g/dL (6.4-8.2)
[2023-06-07] MEDS: Allopurinol 300 MG TAB PO (08:06)
[2023-06-07] MEDS: Magnesium Chloride 64 MG TABCR PO (08:06)
[2023-06-07] MEDS: Aspirin E.C. 81 MG TABEC PO (08:06)
[2023-06-07] MEDS: Folic Acid 1 MG TAB PO (08:07)
[2023-06-07] MEDS: Metoprolol 12.5 MG TAB 25 MG PO (08:07)
--- NOTE | 2023-06-07 08:30 | PDOC.CMIN ---
Date of service: 06/07/23 Time of Service: 08:30 Care Management Initial Assmt Initial Assessment REASON FOR HOSPITALIZATION:: DKA PREVIOUS FUNCTIONAL STATUS/SOCIAL/FAMILY SUPPORTS:: Blayne lives in [facility] with his daughter Ly. He is and besides his daughter Ly, he has 2 sons, Anam and Malik. Blayne is retired but worked for the [employer] for 32 years. He is independent at baseline, drives, and manages his ADL's independently. He uses a cane in the house at times for ambulatory assistance. CURRENT FUNCTIONAL STATUS:: Blayne was sitting up on the side of his bed, finishing his lunch, when CM met with him. He was pleasant and cooperative and engaged easily in conversation. Blayne informed CM that he has been discharged and will be going home this afternoon. His only complaint was that he is tired and stated he thought he might take a nap before he goes home. ADVANCE DIRECTIVES:: [facility] on file Has patient been provided with info about the portal/API?: Yes Did the patient sign up for the portal?: No CODE STATUS:: Full Code INSURANCE COVERAGE / FINANCIAL ISSUES:: /[facility]SI [facility] CURRENT HOME/COMMUNITY SERVICES/EQUIPMENT:: cane PRIMARY CARE PHYSICIAN:: Janessa Cantrell POTENTIAL DISCHARGE NEEDS:: follow up with PCP and plan of acre PATIENT/FAMILY EDUCATION NEEDS:: Review of discharge instructions, glucose control, medications, diet, limitations, follow up plan, discuss Ask Me Three TRANSPORTATION:: via private vehicle with family PLAN:: Anticipate Blayne will be discharged home with no new services. He will follow up with his community providers and plan of care and transport with family. CM will follow and support discharge planning concerns. PFSH All Active Problems (Updated 06/06/23 @ 13:55 by Jesus Monique MD) High anion gap metabolic acidosis (Acute) DKA (diabetic ketoacidosis) (Acute) Hypercalcemia (Acute) Ketoacidosis (Acute) Pancreatic pseudocyst (Chronic) Essential hypertension (Chronic 01/10/13) Hyperlipidemia (Chronic 07/15/12) Male erectile disorder (Chronic) normal testosterone Rosacea (Chronic) Tobacco dependence due to chewing tobacco (Chronic) Onychomycosis (Chronic) on fingers and toes; declines to treat due to possible medication side effects. Anxiety disorder (Chronic) managing with THC/CBD edibles GERD without esophagitis (Acute) Type 1.5 diabetes, managed as type 1 (Acute) Advanced care planning/counseling discussion (Acute) Chronic pancreatitis (Acute) Medical History (Updated 06/06/23 @ 13:55 by Jesus Monique MD) History of alcohol use disorder none since hospital discharge 08/2022 Palliative care encounter History of acute gouty arthritis Diabetic acidosis, type I Atrial fibrillation Stable. History during hospitalization in 2018, negative Zio patch for 48 hrs. Cerebellar lesion ruled out with MRI Depression a. inpatient admission Acute pancreatitis (12/19/13) 12/20/13,11/04/17, 04/2022 Surgical History H/O arthroscopy of right knee Family History Grandfather , MD at age 54. Myocardial infarction Father Prostate cancer Grandfather Personal history of malignant neoplasm Social History Smoking/Tobacco Use Status: Former Tobacco Use Smokeless tobacco user: chewing tobacco Counseling given: provider counseling Smoking risk assessment performed?: Yes Alcohol Intake: current Alcohol Intake frequency: a few times a week Alcohol type: beer Drug use: Daily Substance use type: marijuana Household members: none Housing: house Number of Children: 3 Education Level: high school current occupation: Currently unemployed Pets and animals: Yes Pets and animals: dog(s) Sexually active: No What is your relationship status?: How often do you get together with friends or relatives?: once per week Panel score (0-1 are the most socially isolated patients): 0 What type of physical activity do you participate in: walking Do you feel safe at home: Yes Do you feel safe in your relationship?: Yes SDOH(Care Management) Screening Will the Patient Participate in the Screening?: Unable to obtain
[2023-06-07] MEDS: Insulin Aspart 300 UNITS/3 ML PEN SC (11:36)
--- NOTE | 2023-06-07 11:50 | DSE_ITS ---
Date of service: 06/07/23 Time of Service: 16:05 DS: Diagnosis Discharge Diagnosis (1) DKA (diabetic ketoacidosis): Status: Acute Asessment and Plan: During my patient initially presented with signs and symptoms consistent with DKA with an anion gap metabolic acidosis. He was placed on DKA protocol and insulin drip and was eventually able to close his gap and transition off of insulin and back to combination of long-acting and sliding scale. He is tolerating good p.o. intake, and has had stable blood sugar since that time and thus was determined to be stable for discharge home. (2) High anion gap metabolic acidosis: Status: Acute Asessment and Plan: -secondary to DKA as noted above (3) Hypercalcemia: Status: Acute Asessment and Plan: -secondary to DKA as noted above (4) Essential hypertension: Status: Chronic Discharge Plan Disposition Patient Disposition: Home Condition: Good Discharge Details Reason For Visit: DKA,Etoh withdrawal Admit Date/Time: 06/06/23 07:42 Admit Provider: Jesus Monique Attending Provider: Jesus Monique Primary Care Provider: Janessa Cantrell Hospital Course Hospital Course: During my patient initially presented with signs and symptoms consistent with DKA with an anion gap metabolic acidosis. He was placed on DKA protocol and insulin drip and was eventually able to close his gap and transition off of insulin and back to combination of long-acting and sliding scale. He is tolerating good p.o. intake, and has had stable blood sugar since that time and thus was determined to be stable for discharge home. Home Meds and New Rx's Prescriptions: Continued metoprolol tartrate 25 mg tablet 25 mg PO Q12H Qty: 180 3RF thiamine mononitrate (vit B1) [Vitamin B-1 (mononitrate)] 100 mg tablet 100 mg PO QAM Qty: 90 3RF folic acid 1 mg tablet 1 mg PO QAM Qty: 90 3RF allopurinol 300 mg tablet 300 mg PO DAILY aspirin 81 mg tablet,delayed release (DR/EC) 81 mg PO DAILY Qty: 90 3RF multivitamin [Daily Multi-Vitamin] 1 EACH tablet 1 ea PO DAILY metronidazole 0.75 % cream 1 applic TP QHS Qty: 45 12RF Rx Instructions: Apply to face. ascorbic acid (vitamin C) 1,000 mg capsule 1 g PO DAILY (DME) FreeStyle Test Strip See Dose Instructions .ROUTE .MEDSUPPLY Qty: 360 3RF Dose Instruction: As directed Rx Instructions: qid Mag 64 64 mg tablet,delayed release (DR/EC) 64 mg PO BID Qty: 60 2RF (DME) BD AutoShield Duo Pen Needle 30 gauge x 3/16 needle See Dose Instructions .ROUTE .MEDSUPPLY Qty: 400 3RF Dose Instruction: As directed Rx Instructions: use 4 needles daily tadalafil 10 mg tablet 10 mg PO ONCE PRN (Reason: sexual activity) Qty: 10 2RF (DME) Dexcom G7 Sensor Device See Rx Instructions .Route Qty: 1 12RF Rx Instructions: As directed - apply according to package frequency Jardiance 25 mg tablet 25 mg PO QAM Qty: 90 1RF insulin lispro [Humalog KwikPen Insulin] 100 unit/mL insulin pen 1 sliding scale dose subcut USEASDIRECTD MDD 40 units Qty: 15 5RF Rx Instructions: sliding scale with meals (tid) 60-90 - 0 units; 91-140 3 units; 141-200 - 5 units; 201-280 - 8 units; 281-320 - 12 units. insulin glargine-yfgn [Semglee(insulin glarg-yfgn)Pen] 100 unit/mL (3 mL) insulin pen 35 unit subcut QPM Qty: 15 6RF Discharge Instructions Activity:: Activity as Tolerated Equipment/Supplies:: No Equipment Needed Diet:: As Tolerated Discharge Orders Discharge Orders: Discharge Order (Routine); Ordered 06/07/23 Ordered By: Jesus Monique Discharge Data Discharge Date/Time-TO BE ENTERED AT DEPARTURE: 06/07/23 15:06 Discharge Comment: ambulatory no complaints offered DS: Summary Time Spent with Patient providing and/or coordinating discharge services: Greater than 30 minutes Status at Discharge Functional status at discharge: independent ambulation Overall status at discharge: patient is back to baseline Mental Status: mental status grossly normal Speech and Movement: speech and movement normal Mood: congruent mood Affect: normal affect Quality:SDOH Health Related Social Needs: No Data to Display Exam Narrative Exam Narrative: Well-appearing gentleman laying in bed in no acute distress, ANO x 4, heart regular rhythm, lungs clear to auscultation bilaterally, abdomen soft, nontender, nondistended Psych Mental Status: mental status grossly normal Speech and Movement: speech and movement normal Mood: congruent mood Affect: normal affect DS: Data Vitals/I&O Vitals and I&O: Vital Signs Temperature 97.9 F 06/07/23 08:51 Temperature Source Temporal Artery Scan 06/07/23 08:51 Pulse 73 06/07/23 08:51 Pulse 86 06/07/23 08:07 Respiratory Rate 18 06/07/23 08:51 Respiratory Effort Normal, Non-Labored 06/07/23 08:51 Respiratory Depth Normal 06/07/23 08:51 Respiratory Pattern Normal 06/07/23 08:51 Blood Pressure 130/81 06/07/23 08:51 Blood Pressure Mean 97 06/07/23 08:51 Blood Pressure Position Supine 06/07/23 08:51 Pulse Oximetry 99 06/07/23 08:51 Oxygen Delivery Method Room Air 06/07/23 08:51 Oxygen Flow Rate 0 06/07/23 08:51 Pain Level 0 06/07/23 08:51 Intake & Output 06/06/23 06/07/23 06/07/23 17:59 05:59 17:59 Intake Total 1027.970 / 5632.359 2980.296 / 3166.266 1240 / 1240 Output Total 325 / 325 400 / 725 600 / 600 Balance 702.970 / 676.010 9214.296 / 2441.266 640 / 640 Weight 188 lb 7.924 oz 190 lb 4.143 oz Intake: IV 1027.970 / 8939.080 7876.296 / 3046.266 1000 / 1000 Oral 120 / 120 240 / 240 Output: Urine 325 / 325 400 / 725 600 / 600 Other: Urine Color Light Dania Yellow Price Price Urine Appearance Sediment Clear Urine Odor Strong Comment yet to void since start of my shift Voiding Methods Bedside Commode Data Completed and Pending Labs on day of discharge: Labs from last 24 hours 06/07/23 06/06/23 06/06/23 06:12 23:30 20:32 WBC 7.89 RBC 5.04 Hgb 16.7 Hct 49.2 MCV 98 H MCH 33.1 H MCHC 33.9 RDW 13.5 Plt Count 128 L MPV 10.2 Sodium 138 137 138 Potassium 3.9 4.4 3.8 Chloride 104 104 104 Carbon Dioxide 21.9 22.5 22.2 Anion Gap 12.1 H 10.5 11.8 H BUN 10 12 13 Creatinine 1.1 1.1 1.1 Est GFR (CKD-EPI 2020) 78.79 78.79 78.79 Glucose 135 H 100 102 Calcium 9.3 9.0 9.0 Total Bilirubin 1.1 H 1.0 AST 33 39 H ALT 29 31 Alkaline Phosphatase 89 83 Total Protein 7.2 7.2 Albumin 3.6 3.5 06/06/23 06/06/23 06/06/23 18:38 16:45 14:43 WBC RBC Hgb Hct MCV MCH MCHC RDW Plt Count MPV Sodium 140 139 139 Potassium 3.9 3.7 4.0 Chloride 103 104 103 Carbon Dioxide 24.0 21.9 21.7 Anion Gap 13.0 H 13.1 H 14.3 H BUN 13 14 15 Creatinine 1.2 1.2 1.2 Est GFR (CKD-EPI 2020) 70.98 70.98 70.98 Glucose 99 103 128 H Calcium 9.4 9.1 9.2 Total Bilirubin AST ALT Alkaline Phosphatase Total Protein Albumin 06/06/23 11:28 WBC RBC Hgb Hct MCV MCH MCHC RDW Plt Count MPV Sodium 138 Potassium 4.1 Chloride 104 Carbon Dioxide 20.5 L Anion Gap 13.5 H BUN 16 Creatinine 1.3 Est GFR (CKD-EPI 2020) 64.47 Glucose 104 Calcium 9.0 Total Bilirubin AST ALT Alkaline Phosphatase Total Protein Albumin Preliminary micro results at discharge 06/06/23 00:56 Blood Culture - Preliminary Blood NO GROWTH 24 HOURS 06/06/23 00:56 Blood Culture - Preliminary Blood NO GROWTH 24 HOURS PFSH All Active Problems (Updated 06/06/23 @ 13:55 by Jesus Monique MD) High anion gap metabolic acidosis (Acute) DKA (diabetic ketoacidosis) (Acute) Hypercalcemia (Acute) Ketoacidosis (Acute) Pancreatic pseudocyst (Chronic) Essential hypertension (Chronic 01/10/13) Hyperlipidemia (Chronic 07/15/12) Male erectile disorder (Chronic) normal testosterone Rosacea (Chronic) Tobacco dependence due to chewing tobacco (Chronic) Onychomycosis (Chronic) on fingers and toes; declines to treat due to possible medication side effects. Anxiety disorder (Chronic) managing with THC/CBD edibles GERD without esophagitis (Acute) Type 1.5 diabetes, managed as type 1 (Acute) Advanced care planning/counseling discussion (Acute) Chronic pancreatitis (Acute) Medical History (Updated 06/06/23 @ 13:55 by Jesus Monique MD) History of alcohol use disorder none since hospital discharge 08/2022 Palliative care encounter History of acute gouty arthritis Diabetic acidosis, type I Atrial fibrillation Stable. History during hospitalization in 2018, negative Zio patch for 48 hrs. Cerebellar lesion ruled out with MRI Depression a. inpatient admission Acute pancreatitis (12/19/13) 12/20/13,11/04/17, 04/2022 Surgical History H/O arthroscopy of right knee Family History Grandfather , [place] at age 54. Myocardial infarction Father Prostate cancer Grandfather Personal history of malignant neoplasm Social History Smoking/Tobacco Use Status: Former Tobacco Use Smokeless tobacco user: chewing tobacco Counseling given: provider counseling Smoking risk assessment performed?: Yes Alcohol Intake: current Alcohol Intake frequency: a few times a week Alcohol type: beer Drug use: Daily Substance use type: marijuana Household members: none Housing: house Number of Children: 3 Education Level: high school current occupation: Currently unemployed Pets and animals: Yes Pets and animals: dog(s) Sexually active: No What is your relationship status?: How often do you get together with friends or relatives?: once per week Panel score (0-1 are the most socially isolated patients): 0 What type of physical activity do you participate in: walking Do you feel safe at home: Yes Do you feel safe in your relationship?: Yes Time Spent with Patient Time Spent with Patient: <45 minutes Time was spent: preparing to see the patient(eg.review tests), obtaining and/or reviewing separately otained hiistory, ordering medications,tests, procedures, referring, communicating with other health career technical supervisor, indepentently interpreting results, counseling the patient and care coordination
--- NOTE | 2023-06-07 15:13 | CMDISCH_ITS ---
Date of service: 06/07/23 Time of Service: 15:13 LACE Index Scoring Tool Questions: Length of Stay (in days): 1 Was the patient admitted via the E.D.?: Yes Comorbidities: Diabetes w/o Complication E.D. Visits: 1 Answers: Total Score: 6 Risk of Readmission: Low Risk Care Management Discharge Plan Reason for Hospitalization: DKA Discharge Plan: Blayne will be discharged home with no new services. He will follow up with his PCP and transport with his daughter Ly. Patient/Family Education Needs: Review of discharge instructions, glucose control, medications, diet, limitations, follow up plan, discuss Ask Me Three [facility] Health Related Social Needs: No Data to Display
== END 2023-06-07 15:06 | disposition home or self-care (01) | DRG 638 ==
LOC: ER 06-06 11:59 → ICU 06-06 12:18
PROVIDERS: Student in an Organized Health Care Education/Training Program; Admitting Provider Family Medicine; Emergency Provider Student in an Organized Health Care Education/Training Program; PCP Family Medicine; Visit Provider Family Medicine
DX: E10.10 Type 1 diabetes mellitus with ketoacidosis without coma (principal); K86.1 Other chronic pancreatitis; K86.3 Pseudocyst of pancreas; E83.52 Hypercalcemia; I10 Essential (primary) hypertension; F41.9 Anxiety disorder, unspecified; K21.9 Gastro-esophageal reflux disease without esophagitis; F17.220 Nicotine dependence, chewing tobacco, uncomplicated; L71.9 Rosacea, unspecified; E78.5 Hyperlipidemia, unspecified; B35.1 Tinea unguium; F10.11 Alcohol abuse, in remission; F12.90 Cannabis use, unspecified, uncomplicated
CPT/HCPCS: 00123; 36410; 36415; 80048; 80053; 82805; 83690; 85027; 87040; 87637; 93005; 96361; 96365; 96366; 96367; 96368; 96375; 96376; 99291; 71046; 74177; 80320; 80329; 81003; 81015; 83605; 83735; 84100; 84484; 85025; 93010; 99223; 99238; J1815; J1885; J2060; J2405; J2765; J3411; J3490

== ENCOUNTER 2023-10-09 18:56 | Outpatient (REF) | payer BC, SELFPAY ==
[2023-10-07 21:34] LABS: Calculated LDL 80 mg/dL (<100); Cholesterol 225 mg/dL (<200); HDL Cholesterol 112 mg/dL (40-60); Triglyceride 166 mg/dL (<150)
== END 2023-10-09 18:57 | disposition home or self-care (01) ==
LOC: LBN 18:56
PROVIDERS: PCP Family Medicine; Visit Provider Family Medicine
DX: E11.9 Type 2 diabetes mellitus without complications (principal); E13.9 Other specified diabetes mellitus without complications; M1A.9XX1 Chronic gout, unspecified, with tophus (tophi); M79.2 Neuralgia and neuritis, unspecified; I10 Essential (primary) hypertension; K86.0 Alcohol-induced chronic pancreatitis; F17.220 Nicotine dependence, chewing tobacco, uncomplicated; Z87.898 Personal history of other specified conditions
CPT/HCPCS: 80061

== ENCOUNTER 2024-06-22 23:13 | Outpatient (REF) | payer BC, SELFPAY ==
[2024-06-22 23:39] LABS: COMMENT (LAB VIEW ONLY) < 13.00 mg/dL
== END 2024-06-22 23:14 | disposition home or self-care (01) ==
LOC: LBN 23:13
PROVIDERS: PCP Family Medicine; Visit Provider Family Medicine
DX: E13.9 Other specified diabetes mellitus without complications (principal)
CPT/HCPCS: 82043; 82570

== ENCOUNTER 2024-09-21 17:34 | Outpatient (REF) | payer BC, SELFPAY ==
[2024-09-21 14:23] LABS: ALT 55 U/L (16-63); AST 97 U/L (15-37); Albumin 4.1 g/dL (3.4-5.0); Alkaline Phosphatase 136 U/L (46-116); Anion Gap 9.8 mmol/L (3-11); BUN 7 mg/dL (7-18); Bilirubin, Total 1.1 mg/dL (0.2-1.0); CO2 32.2 mmol/L (21.0-32.0); Calcium 9.4 mg/dL (8.5-10.1); Chloride 93 mmol/L (98-107); Estimated GFR 107.47 (mL/min/1.73m2); Glucose 249 mg/dL (74-106); Potassium 4.2 mmol/L (3.5-5.1); Sodium 135 mmol/L (136-145); Total Protein 7.2 g/dL (6.4-8.2); Vitamin B12 1080 pg/mL (193-986)
== END 2024-09-21 17:35 | disposition home or self-care (01) ==
LOC: LBN 17:34
PROVIDERS: PCP Family Medicine; Visit Provider Family Medicine
DX: Z00.00 Encounter for general adult medical examination without abnormal findings (principal); E13.9 Other specified diabetes mellitus without complications; M79.2 Neuralgia and neuritis, unspecified
CPT/HCPCS: 80053; 82607

== ENCOUNTER 2025-02-10 19:33 | Emergency (ER) | payer BC, SELFPAY ==
[2025-02-10] VITALS (17 sets, daily range): BP systolic 111–154; BP diastolic 79–95; PULSE 64–95; RESP 11–20; TEMP 36.7; O2SAT 94–100
[2025-02-10 20:34] LABS: Abs Immature Grans 0.01 10^3/uL (0.0-0.06); HCT 47.5 % (40.0-50.0); HGB 16.6 g/dL (13.5-17.5); Immature Grans % 0.2 %; MCH 33.5 pg (27.0-33.0); MCHC 34.9 % (32.0-36.0); MCV 96 fL (80-95); MPV 10.3 fL (8.0-11.0); Platelet Count 168 10^3/uL (130-400); RBC 4.96 10^6/uL (4.36-5.78); RDW 11.3 % (11.8-14.1); RDW-SD 39.9 fL; WBC 6.51 10^3/uL (4.4-10.8)
[2025-02-10] MEDS: Metoclopramide 10 MG/2 ML VIAL IVP (20:35)
[2025-02-10] MEDS: MORPHine 10 MG/ML VIAL 6 MG IVP (20:35)
[2025-02-10] MEDS: Normal Saline 1,000 ML 1000 ML IV (20:36)
[2025-02-10 20:44] LABS: INR 1.1 (0.9-1.1); Prothrombin Time 10.4 sec (9.1-11.1)
[2025-02-10 20:49] LABS: Lipase 17 U/L (<53); Magnesium 1.6 mg/dL (1.6-2.6); Troponin I 6 ng/L (<54)
[2025-02-10 20:51] LABS: ALT 13 U/L (10-49); AST 18 U/L (<34); Albumin 4.7 g/dL (3.2-5.0); Alkaline Phosphatase 101 U/L (46-116); Anion Gap 15.1 mmol/L (3-11); BUN 12 mg/dL (9-23); Bilirubin, Total 0.5 mg/dL (0.2-1.2); CO2 23.1 mmol/L (20.0-31.0); Calcium 10.3 mg/dL (8.3-10.6); Chloride 95 mmol/L (98-107); Glucose 289 mg/dL (74-106); Potassium 3.7 mmol/L (3.5-5.1); Sodium 133 mmol/L (136-145); Total Protein 8.0 g/dL (5.7-8.2)
[2025-02-10 20:57] LABS: Glucose 500 mg/dL (Negative)
[2025-02-10 21:07] LABS: C & S Indicated? No; RBC 0-2 HPF (0-2); WBC 0-2 HPF (0-5)
[2025-02-10 21:19] LABS: BE (Venous) -4 mmol/L (-2-3); HCO3 (Venous) 22 mmol/L (23-28); O2 Sat (Venous) 77 %; TCO2 (Venous) 20 mmol/L (24-29); pCO2 (Venous) 43 mmHg (41-51); pO2 (Venous) 42 mmHg
[2025-02-10 21:39] LABS: Troponin I 6 ng/L (<54)
[2025-02-10] MEDS: Omnipaque 350 MG/ML 100 ML BTL IJ (22:06)
[2025-02-10] MEDS: Normal Saline Flush 10 ML SYR IVP (22:07)
[2025-02-10] MEDS: Normal Saline - Diluent 50 ML VIAL IJ (22:07)
--- NOTE | 2025-02-10 22:08 | DI.CT_ITS ---
Exam(s) CT ABDOMEN PELVIS W EXAM: CT ABDOMEN PELVIS W CLINICAL HISTORY: epig pain, hx of pancreatic pseudocyst. TECHNIQUE: Imaging Protocol: Axial computed tomography images with coronal and sagittal reformatted images were created and reviewed CONTRAST MATERIAL: Intravenous: Omnipaque 350 Contrast volume:75 ml Oral: no COMPARISON: CT CT ABDOMEN PELVIS W from 06/06/2023 FINDINGS: ABDOMEN and PELVIS: Lung Bases: No acute findings. Liver: Normal density. No suspicious mass. Gallbladder and biliary tract: No radiodense calculus. No wall thickening or pericholecystic fluid. No biliary dilation. Pancreas: The pancreas is again noted to be atrophic and shows multiple calcifications. The previously noted pseudocyst is no longer present. No evidence of acute inflammation or mass. Spleen: Normal. 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 There are multiple collaterals in the left upper quadrant. Kidneys: Normal size, contour and axis. No radiodense stones. No obstructive uropathy. No suspicious masses seen. Adrenal glands: No masses seen. Vasculature: Abdominal aorta non-dilated. Soft tissues: Unremarkable. Bladder: No gross wall thickening. No calculi.No focal mass. Bowel: No obstruction. No bowel wall thickening. Appendix normal.There is a large quantity of stool throughout the colon as well as rectum, consistent with constipation. Peritoneal cavity: No ascites. No focal collection. No mesenteric inflammatory response. No free air. Bones: Unremarkable for age. Reproductive organs: Unremarkable. Lymph nodes: No pathologically enlarged lymph nodes. IMPRESSION:: No acute abnormality in the abdomen or pelvis. Large quantity of stool throughout the colon and rectum consistent with constipation. Atrophic pancreas with calcification. Previously noted pseudocyst is no longer present. No current inflammation. Stable appearance of thrombosed splenic vein and multiple collaterals. The preliminary [facility] report was reviewed. RADIATION DOSE DELIVERED: Total DLP DATA REPOSITORY: All CT scans at this facility are submitted to the National Radiology Data Registry (NRDR) Dose Index Registry (DIR) with the [employer] ([employer]). RADIATION OPTIMIZATION: All CT scans at this facility use at least one of these dose optimization techniques: automated exposure control; mA and/or kV adjustment per patient size (includes targeted exams where dose is matched to clinical indication); or iterative reconstruction.
--- NOTE | 2025-02-10 22:31 | DI.[facility]_ITS ---
PROCEDURE INFORMATION: Exam: CT Abdomen And Pelvis With Contrast Exam date and time: 02/10/2025 9:55 PM Age: 59 years old Clinical indication: Abdominal pain; Epigastric; Epig pain, HX of pancreatic pseudocyst TECHNIQUE: Imaging protocol: Computed tomography of the abdomen and pelvis with contrast. Radiation optimization: All CT scans at this facility use at least one of these dose optimization techniques: automated exposure control; mA and/or kV adjustment per patient size (includes targeted exams where dose is matched to clinical indication); or iterative reconstruction. Contrast material: [id number]; Contrast volume: 75 ml; Contrast route: INTRAVENOUS (IV); COMPARISON: CT ABDOMEN PELVIS W 06/06/2023 2:44 AM FINDINGS: Liver: Mild fatty infiltration of the liver. Gallbladder and biliary ducts: Normal. No calcified stones. No ductal dilation. Pancreas: Calcifications identified scattered throughout the body and head of the pancreas consistent with changes of chronic calcific pancreatitis. Spleen: Normal. No splenomegaly. Adrenal glands: Normal. No mass. Kidneys and ureters: Normal. No hydronephrosis. Stomach and bowel: Unremarkable. No obstruction. No mucosal thickening. Appendix: No evidence of appendicitis. Intraperitoneal space: Unremarkable. No free air. No significant fluid collection. Vasculature: Unremarkable. No abdominal aortic aneurysm. Lymph nodes: Unremarkable. No enlarged lymph nodes. Urinary bladder: Unremarkable as visualized. Reproductive: Unremarkable as visualized. Bones/joints: Unremarkable. No acute fracture. Soft tissues: Unremarkable. Other findings: Estimation. IMPRESSION: 1. Chronic calcific pancreatitis. 2. Constipation. 3. Mild fatty infiltration of the liver. Dictated and Authenticated by: James Landrum MD. Orderin Saji Yeboah MD
[2025-02-10 23:04] LABS: Anion Gap 13.1 mmol/L (3-11); BUN 10 mg/dL (9-23); CO2 21.3 mmol/L (20.0-31.0); Calcium 9.0 mg/dL (8.3-10.6); Chloride 100 mmol/L (98-107); Glucose 249 mg/dL (74-106); Potassium 3.8 mmol/L (3.5-5.1); Sodium 134 mmol/L (136-145)
[2025-02-10 23:27] LABS: Beta Hydroxybutyrate 3.57 mmol/L (0.02-0.27)
--- NOTE | 2025-02-10 23:45 | RT.EKG_ITS ---
APPROVED REPORT Exam: Resting ECG Reason for Exam: nausea Patient Location: E HR:62 bpm ECG Measurements Heart Rate 62 AXIS FL 192 P 54 QRSd 97 QRS 20 QT 445 T 58 QTc 454 Conclusion Sinus rhythm...normal P axis, V-rate 60- [address] segment or T wave abnormalities to suggest occlusive [place]
[2025-02-11] VITALS: PULSE 65; RESP 15; O2SAT 99
--- NOTE | 2025-02-11 00:09 | W.ED.GENAD ---
Discharge Plan Disposition Patient Disposition: Home Condition: Stable Discharge Details Clinical Impression: Acute hyperglycemia, Nausea, Abdominal pain Primary Care Provider: Janessa Cantrell ED Provider: Edilia Lennon Home Meds and New Rx's Prescriptions: Continued aspirin 81 mg tablet,delayed release (DR/EC) 81 mg PO DAILY Qty: 90 3RF magnesium chloride [Mag 64] 64 mg tablet,delayed release (DR/EC) 64 mg PO BID Qty: 60 2RF insulin glargine-yfgn [Semglee(insulin glarg-yfgn)Pen] 100 unit/mL (3 mL) insulin pen 40 unit subcut QPM Qty: 15 6RF Rx Instructions: increase every 3 days by 5 units until at 50 units daily. metoprolol tartrate 25 mg tablet 25 mg PO Q12H Qty: 180 3RF (DME) FreeStyle Test Strip See Dose Instructions .ROUTE .MEDSUPPLY Qty: 360 3RF Dose Instruction: As directed Rx Instructions: qid multivitamin [Daily Multi-Vitamin] 1 EACH tablet 1 ea PO DAILY ascorbic acid (vitamin C) 1,000 mg capsule 1 g PO DAILY tadalafil 10 mg tablet 10 mg PO ONCE PRN (Reason: sexual activity) Qty: 8 10RF allopurinol 300 mg tablet 300 mg PO DAILY Qty: 90 3RF cyanocobalamin (vitamin B-12) 5,000 mcg capsule 5,000 mcg PO DAILY Qty: 90 3RF folic acid 1 mg tablet 1 mg PO QAM Qty: 90 3RF insulin lispro [Humalog KwikPen Insulin] 100 unit/mL insulin pen 1 sliding scale dose subcut USEASDIRECTD MDD 40 units Qty: 15 5RF Rx Instructions: sliding scale with meals (tid) 60-90 - 0 units; 91-140 3 units; 141-200 - 5 units; 201-280 - 8 units; 281-320 - 12 units. thiamine mononitrate (vit B1) [Vitamin B-1 (mononitrate)] 100 mg tablet 100 mg PO QAM Qty: 90 3RF (DME) pen needle, diabetic 31 gauge x 3/16 needle See Rx Instructions .ROUTE .MEDSUPPLY Qty: 400 3RF Rx Instructions: Test 4 times a day gabapentin 300 mg capsule 300 mg PO DAILY PRN Discharge Instructions Instructions: Abdominal Pain, Adult ED Additional Instructions: Please follow-up with your primary care physician on Thursday for reassessment Talk to them specifically about long-acting insulin Follow-up with human resource statistician keep track of your blood glucose and be sure you are using a sliding scale to dose your insulin certified diabetes educator small frequent meals with protein, fat, and complex carbohydrates Take the nausea medication as needed You may take the pain medication sparingly, this medication can be addictive, use please use cautiously and do not operate a vehicle for 8 hours after taking this medicine Stand Alone Forms: Portal Information Discharge Data Discharge Date/Time-TO BE ENTERED AT DEPARTURE: 02/11/25 00:04 HPI General Date/Time Provider Initiated Documentation: 02/10/25 19:37. HPI Narrative: This is a 59-year-old male with history of type 1 diabetes diabetic ketoacidosis alcoholism, pancreatic pseudocyst, pancreatitis, hyperlipidemia, hypertension who presents with epigastric abdominal pain nausea and vomiting. He denies any chest pain or shortness of breath. He states his symptoms are similar to pancreatitis history however he has not been drinking for the past 2 months per patient. He states though that he supposed to be on a long-acting and short acting insulin. He is using his regular insulin only as apparently the pharmacy has not had his long-acting insulin and he is injecting 18 units of insulin in the morning and 18 units of regular insulin at night. Related Data Home Medications ?Medication ?Instructions ?Recorded ?Confirmed multivitamin (Daily Multi-Vitamin 1 ea PO DAILY 10/29/16 02/14/25 tablet) aspirin 81 mg tablet,delayed 81 mg PO DAILY #90 tabs 11/14/20 02/14/25 release ascorbic acid (vitamin C) 1,000 mg 1 g PO DAILY 05/21/22 02/14/25 capsule tadalafil 10 mg tablet 10 mg PO ONCE PRN sexual activity 02/01/24 02/14/25 #8 tabs allopurinol 300 mg tablet 300 mg PO DAILY #90 tabs 06/08/24 02/14/25 cyanocobalamin (vitamin B-12) 5,000 mcg PO DAILY #90 caps 06/08/24 02/14/25 5,000 mcg capsule folic acid 1 mg tablet 1 mg PO QAM #90 tabs 06/08/24 02/14/25 insulin lispro 100 unit/mL 1 sliding scale dose subcut 06/08/24 02/14/25 subcutaneous pen (Humalog KwikPen USEASDIRECTD #15 mL (U-100) Insulin) thiamine mononitrate (vit B1) 100 100 mg PO QAM #90 tabs 07/07/24 02/14/25 mg tablet (Vitamin B-1 (mononitrate)) blood sugar diagnostic (FreeStyle #360 ea 09/21/24 02/14/25 Test strips) insulin glargine-yfgn 100 unit/mL 40 unit (0.4 mL) subcut QPM #15 mL 09/21/24 02/14/25 (3 mL) subcutaneous pen (Semglee (insulin glargine-yfgn) Pen) magnesium chloride 64 mg 64 mg PO BID #60 tabs 09/21/24 02/14/25 (magnesium chloride) tablet,delayed release (Mag 64) metoprolol tartrate 25 mg tablet 25 mg PO Q12H #180 tabs 09/21/24 02/14/25 pen needle, diabetic 31 gauge x #400 ea 09/21/24 02/14/2505/15 gabapentin 300 mg capsule 300 mg PO DAILY PRN 02/10/25 02/14/25 Previous Rx's ?Medication ?Instructions ?Recorded aspirin 81 mg tablet,delayed 81 mg PO DAILY #90 tabs 11/14/20 release tadalafil 10 mg tablet 10 mg PO ONCE PRN sexual activity 02/01/24 #8 tabs allopurinol 300 mg tablet 300 mg PO DAILY #90 tabs 06/08/24 cyanocobalamin (vitamin B-12) 5,000 mcg PO DAILY #90 caps 06/08/24 5,000 mcg capsule folic acid 1 mg tablet 1 mg PO QAM #90 tabs 06/08/24 insulin lispro 100 unit/mL 1 sliding scale dose subcut 06/08/24 subcutaneous pen (Humalog KwikPen USEASDIRECTD #15 mL (U-100) Insulin) thiamine mononitrate (vit B1) 100 100 mg PO QAM #90 tabs 07/07/24 mg tablet (Vitamin B-1 (mononitrate)) blood sugar diagnostic (FreeStyle #360 ea 09/21/24 Test strips) insulin glargine-yfgn 100 unit/mL 40 unit (0.4 mL) subcut QPM #15 mL 09/21/24 (3 mL) subcutaneous pen (Semglee (insulin glargine-yfgn) Pen) magnesium chloride 64 mg 64 mg PO BID #60 tabs 09/21/24 (magnesium chloride) tablet,delayed release (Mag 64) metoprolol tartrate 25 mg tablet 25 mg PO Q12H #180 tabs 09/21/24 pen needle, diabetic 31 gauge x #400 ea 09/21/24 3/16 Allergies Allergy/AdvReac Type Severity Reaction Status Date / Time morphine AdvReac Intermediate Narcotic Verified 02/10/25 19:48 induced constipation General Stated Complaint: Abd Prob DELMY: 3 Exam Narrative Exam Narrative: 59-year-old male in no acute distress, oropharynx patent uvula midline, mild left upper quadrant abdominal tenderness, no rebound or guarding, no flank tenderness Course Vital Signs Vital signs: Vital Signs Temperature 36.7 C 02/10/25 19:43 Pulse 95 H 02/10/25 19:43 Respiratory Rate 18 02/10/25 19:43 Blood Pressure 154/95 H 02/10/25 19:43 Pulse Oximetry 98 02/10/25 19:43 Temperature 36.7 C 02/10/25 19:43 Temperature Source Oral 02/10/25 19:43 Pulse 68 02/10/25 23:31 Pulse 68 02/10/25 23:31 Respiratory Rate 19 02/10/25 23:31 Respiratory Pattern Normal 02/10/25 20:20 Blood Pressure 116/79 02/10/25 23:31 Blood Pressure Mean 91 02/10/25 23:31 Pulse Oximetry 100 02/10/25 23:31 Pain Level 10 02/10/25 20:35 Lab/Test Results Lab/Test Results: Laboratory Tests Range/Units 02/10/25 02/10/25 02/10/25 20:21 20:43 21:06 WBC (4.4-10.8) 10^3/uL 6.51 RBC (4.36-5.78) 10^6/uL 4.96 Hgb (13.5-17.5) g/dL 16.6 Hct (40.0-50.0) % 47.5 MCV (80-95) fL 96 H MCH (27.0-33.0) pg 33.5 H MCHC (32.0-36.0) % 34.9 RDW (11.8-14.1) % 11.3 L Plt Count (130-400) 10^3/uL 168 MPV (8.0-11.0) fL 10.3 Immature Gran % % 0.2 Neutrophils % % 50.8 Lymphocytes % % 39.9 Monocytes % % 7.4 Eosinophils % % 0.9 Basophils % % 0.8 Nucleated RBC % (0.0-0.3) % 0.0 Absolute Neutrophils (1.2-6.7) 10^3/uL 3.31 Absolute Lymphocytes (1.2-3.4) 10^3/uL 2.60 Absolute Monocytes (0.1-0.8) 10^3/uL 0.48 Absolute Eosinophils (0.0-0.7) 10^3/uL 0.06 Absolute Basophils (0.0-0.2) 10^3/uL 0.05 PT (9.1-11.1) sec 10.4 INR (0.9-1.1) 1.1 VBG pH (7.31-7.41) VBG pCO2 (41-51) mmHg VBG pO2 mmHg VBG HCO3 (23-28) mmol/L VBG Total CO2 (24-29) mmol/L VBG O2 Saturation % VBG Base Excess (-2-3) mmol/L Sodium (136-145) mmol/L 133 L Potassium (3.5-5.1) mmol/L 3.7 Chloride (98-107) mmol/L 95 L Carbon Dioxide (20.0-31.0) mmol/L 23.1 Anion Gap (3-11) mmol/L 15.1 H BUN (9-23) mg/dL 12 Creatinine (0.73-1.18) mg/dL 0.79 Est GFR (CKD-EPI 2020) (mL/min/1.73m2) 100.66 Glucose (74-106) mg/dL 289 H Calcium (8.3-10.6) mg/dL 10.3 Magnesium (1.6-2.6) mg/dL 1.6 Total Bilirubin (0.2-1.2) mg/dL 0.5 AST (<34) U/L 18 ALT (10-49) U/L 13 Alkaline Phosphatase (46-116) U/L 101 Troponin I (<54) ng/L 6 6 Total Protein (5.7-8.2) g/dL 8.0 Albumin (3.2-5.0) g/dL 4.7 Lipase (<53) U/L 17 Beta-Hydroxybutyrate (0.02-0.27) mmol/L Urine Color (Yellow) Yellow Urine Clarity (Clear) Clear Urine pH (5-8) 5.5 Ur Specific [place] (1.005-1.025) 1.025 Urine Protein (Neg-Trace) mg/dL 30 H Urine Ketones (Negative) mg/dL 40 H Urine Blood (Negative) Negative Urine Nitrite (Negative) Negative Urine Bilirubin (Negative) Large H Urine Urobilinogen (Up to 0.2) mg/dL 0.2 Ur Leukocyte Esterase (Negative) Negative Urine RBC (0-2) HPF 0-2 Urine WBC (0-5) HPF 0-2 Ur Epithelial Cells (Negative) HPF Few Urine Crystals (Negative) HPF Mod Calcium Oxalate Urine Bacteria (Negative) HPF Few Urine Casts (Negative) LPF 3-5 Hyaline Urine Mucus (Negative) Negative Ur Culture Indicated? No Urine Glucose (Negative) mg/dL 500 H Ethyl Alcohol (<3) mg/dL < 3.0 Range/Units 02/10/25 02/10/25 21:16 22:40 WBC (4.4-10.8) 10^3/uL RBC (4.36-5.78) 10^6/uL Hgb (13.5-17.5) g/dL Hct (40.0-50.0) % MCV (80-95) fL MCH (27.0-33.0) pg MCHC (32.0-36.0) % RDW (11.8-14.1) % Plt Count (130-400) 10^3/uL MPV (8.0-11.0) fL Immature Gran % % Neutrophils % % Lymphocytes % % Monocytes % % Eosinophils % % Basophils % % Nucleated RBC % (0.0-0.3) % Absolute Neutrophils (1.2-6.7) 10^3/uL Absolute Lymphocytes (1.2-3.4) 10^3/uL Absolute Monocytes (0.1-0.8) 10^3/uL Absolute Eosinophils (0.0-0.7) 10^3/uL Absolute Basophils (0.0-0.2) 10^3/uL PT (9.1-11.1) sec INR (0.9-1.1) VBG pH (7.31-7.41) 7.32 VBG pCO2 (41-51) mmHg 43 VBG pO2 mmHg 42 VBG HCO3 (23-28) mmol/L 22 L VBG Total CO2 (24-29) mmol/L 20 L VBG O2 Saturation % 77 VBG Base Excess (-2-3) mmol/L -4 L Sodium (136-145) mmol/L 134 L Potassium (3.5-5.1) mmol/L 3.8 Chloride (98-107) mmol/L 100 Carbon Dioxide (20.0-31.0) mmol/L 21.3 Anion Gap (3-11) mmol/L 13.1 H BUN (9-23) mg/dL 10 Creatinine (0.73-1.18) mg/dL 0.67 L Est GFR (CKD-EPI 2020) (mL/min/1.73m2) 121.74 Glucose (74-106) mg/dL 249 H Calcium (8.3-10.6) mg/dL 9.0 Magnesium (1.6-2.6) mg/dL Total Bilirubin (0.2-1.2) mg/dL AST (<34) U/L ALT (10-49) U/L Alkaline Phosphatase (46-116) U/L Troponin I (<54) ng/L Total Protein (5.7-8.2) g/dL Albumin (3.2-5.0) g/dL Lipase (<53) U/L Beta-Hydroxybutyrate (0.02-0.27) mmol/L 3.57 H Urine Color (Yellow) Urine Clarity (Clear) Urine pH (5-8) Ur Specific [place] (1.005-1.025) Urine Protein (Neg-Trace) mg/dL Urine Ketones (Negative) mg/dL Urine Blood (Negative) Urine Nitrite (Negative) Urine Bilirubin (Negative) Urine Urobilinogen (Up to 0.2) mg/dL Ur Leukocyte Esterase (Negative) Urine RBC (0-2) HPF Urine WBC (0-5) HPF Ur Epithelial Cells (Negative) HPF Urine Crystals (Negative) HPF Urine Bacteria (Negative) HPF Urine Casts (Negative) LPF Urine Mucus (Negative) Ur Culture Indicated? Urine Glucose (Negative) mg/dL Ethyl Alcohol (<3) mg/dL Medical Decision Making Results: CBC and CMP do not show significant acute abnormality mild anion gap, electrolytes within normal limits, EKG nonischemic troponins negative, urinalysis shows ketones and interestingly beta hydroxybutyrate is elevated, patient is encouraged to monitor his insulin closely and talk to his doctor about his long-acting insulin. He will check his fingerstick several times a day and be sure he is eating small frequent meals. He will need to be reevaluated on Thursday or Thursday next week as he will need long-acting insulin prescribed to him. There is no evidence of obvious infection, lipase is within normal limits and CT abdomen and pelvis does not show acute abnormality discharged home in stable condition with stable vitals [facility] All Active Problems (Updated 02/10/25 @ 23:27 by TONY Earl) Abdominal pain (Acute) Nausea (Acute) Acute hyperglycemia (Acute) Neuropathic pain (Acute) Gout, tophaceous (Acute) History of alcohol use disorder (Acute) none since hospital discharge 08/2022; 2 beers several days / week. Pancreatic pseudocyst (Chronic) Essential hypertension (Chronic 01/10/13) Hyperlipidemia (Chronic 07/15/12) Male erectile disorder (Chronic) normal testosterone Rosacea (Chronic) Tobacco dependence due to chewing tobacco (Chronic) Onychomycosis (Chronic) on fingers and toes; declines to treat due to possible medication side effects. Anxiety disorder (Chronic) managing with THC/CBD edibles GERD without esophagitis (Acute) Type 1.5 diabetes, managed as type 1 (Acute) Advanced care planning/counseling discussion (Acute) Chronic pancreatitis (Acute) Medical History Palliative care encounter History of acute gouty arthritis Diabetic acidosis, type I Atrial fibrillation Stable. History during hospitalization in 2018, negative Zio patch for 48 hrs. Cerebellar lesion ruled out with MRI Depression a. inpatient admission Acute pancreatitis (12/19/13) 12/20/13,11/04/17, 04/2022 Surgical History H/O arthroscopy of right knee Family History Grandfather , [place] at age 54. Myocardial infarction Father Prostate cancer Grandfather Personal history of malignant neoplasm Social History Smoking/Tobacco Use Status: Former Tobacco Use Smokeless tobacco user: chewing tobacco Counseling given: provider counseling Smoking risk assessment performed?: Yes Alcohol Intake: former Drug use: Never Substance use type: marijuana Details: PT stopped drinking 2 months ago. Household members: none Housing: house Number of Children: 3 Education Level: high school current occupation: Currently unemployed Pets and animals: Yes Pets and animals: dog(s) Sexually active: No What is your relationship status?: How often do you get together with friends or relatives?: once per week Panel score (0-1 are the most socially isolated patients): 0 What type of physical activity do you participate in: walking Do you feel safe at home: Yes Do you feel safe in your relationship?: Yes
[2025-02-11 00:10] VITALS: PULSE 64; RESP 15; O2SAT 98
[2025-02-11 00:13] VITALS: BP 125/71; PULSE 63; PULSE 64; RESP 14
[2025-02-11] MEDS: oxyCODONE 5 MG TAB PO (00:18)
[2025-02-11 00:25] VITALS: BP 125/71; PULSE 63; RESP 14; TEMP 36.6; O2SAT 98
== END 2025-02-11 00:04 | disposition home or self-care (01) ==
PROVIDERS: Emergency Provider Physician Assistant; PCP Family Medicine
DX: E11.65 Type 2 diabetes mellitus with hyperglycemia (principal); R11.2 Nausea with vomiting, unspecified; I10 Essential (primary) hypertension; E78.5 Hyperlipidemia, unspecified; Z79.4 Long term (current) use of insulin; Z87.891 Personal history of nicotine dependence
CPT/HCPCS: 36415; 80048; 80053; 82010; 82805; 82962; 83690; 93005; 96361; 96374; 96375; 99285; 74177; 80320; 81003; 81015; 83735; 84484; 85025; 85610; 93010; J2270; J2765; J3490